=== PATIENT | male | born 1940 | race Caucasian/White ===

== ENCOUNTER → 2016-05-24 | Outpatient (CLI) | payer OTHER ==
[~2016-05-24] MED LIST: AMOX875T PO; ANTICRE6 PO; ASPI325T45 PO; ASPI81TA28 PO; CEPH500C2 PO; CGN1 PO; DXY100 PO; FINA5TAB PO; FLM4 PO; FLV400 PO; FRS/40 PO; GABA-113 PO; GABA600T PO; INSDGIPEN SC; INSU1INJ2 SC; INSU70IN2 SC; INSUINJ14 SC; LACT10CA3 PO; LEVO1TAB34 PO; MAGNESIUM PO; METH1TAB5 PO; METO25TA56 PO; METO50TA16 PO; METO5TAB5 PO; MGNO400 PO; MULT-190 PO; MULT-506 PO; NVLGI/PEN SC; NVLGIPEN SC; NYST-19 TOP; NYSTCRE32 TOP; POTA20TA16 PO; PRLSR20 PO; PRV100 PO; SIMV40TA2 PO; SULF800T23 PO; TRAM-10 PO; TRIM100T20 PO; VENL75TA4 PO; VNTHFA/IN INH
[2016-05-24 13:52] LABS: URINE APPEARANCE CLOUDY (CLEAR); URINE BILIRUBIN NEG (NEG); URINE COLOR YELLOW; URINE NITRITE POS (NEG); URINE PH 8.5 (4.5-7.5); UROBILINOGEN NEG (NEG)
[2016-05-24 14:38] LABS: MANUAL MICROSCOPIC REQUIRED? NO; REVIEW REQ? NO
[2016-05-24 14:39] LABS: SULFASALICYLIC ACID POS (NEG)
== END | disposition home or self-care (01) ==
LOC: EDBD → C.LABSPEC 12:39
DX: N39.0 Urinary tract infection, site not specified (principal)

== ENCOUNTER → 2016-05-31 | Outpatient (CLI) | payer OTHER ==
[~2016-05-31] MED LIST changes: -SULF800T23 PO
[2016-05-31 17:39] LABS: URINE APPEARANCE CLEAR (CLEAR); URINE BILIRUBIN NEG (NEG); URINE COLOR YELLOW; URINE EPITHELIAL CELL AUTO 0-5 /lpf (0-5); URINE NITRITE POS (NEG); URINE SPECIFIC GRAVITY 1.009 (1.000-1.030); UROBILINOGEN NEG (NEG)
[2016-05-31 17:49] LABS: MANUAL MICROSCOPIC REQUIRED? NO; REVIEW REQ? NO
== END | disposition home or self-care (01) ==
LOC: EDBD → C.LAB 15:57
PROVIDERS: ATTEND Nurse Practitioner Adult Health
DX: R30.0 Dysuria (principal)

== ENCOUNTER 2016-06-30 14:01 | Emergency (ER) | payer OTHER ==
[~2016-06-30] VITALS: Ht 177.8 cm; Wt 139.0 kg
[~2016-06-30 14:01] MED LIST changes: -AMOX875T PO; -ASPI81TA28 PO; -CEPH500C2 PO; -CGN1 PO; -DXY100 PO; -FINA5TAB PO; -FLM4 PO; -GABA-113 PO; -INSDGIPEN SC; -INSU1INJ2 SC; -LACT10CA3 PO; -LEVO1TAB34 PO; +METH-1305 PO; -METH1TAB5 PO; -METO25TA56 PO; -MGNO400 PO; -MULT-190 PO; -NVLGI/PEN SC; -NVLGIPEN SC; -NYST-19 TOP; -NYSTCRE32 TOP; -PRV100 PO; -SIMV40TA2 PO; -TRAM-10 PO; +TRIM100T PO; -TRIM100T20 PO
[2016-06-30 14:08] VITALS: Ht 177.8 cm; Wt 139.0 kg
--- NOTE | 2016-06-30 14:29 | EMERGENCY ROOM VISIT NOTE ---
History Report prepared by Tr: Dino Love Under the Supervision of: Dr. Lloyd Piedra M.D. First contact with patient: 14:19 Chief Complaint: CATHETER REPLACEMENT Stated Complaint: CATHETER PLACEMENT History of Present Illness The patient is a 75 year old male who presents to the Emergency Room with complaints of a sudden catheter displacement beginning several hours prior to arrival. He states his Osorio catheter accidentally came out, and his home health nurses could not place it back in. Therefore, he came to the hospital. The patient denies a fever, flank pain, and abdominal pain. Source of History: patient Onset: several hours BUSINESS LINE MANAGER Position: other (global) Quality: other (catheter displacement) Timing: other (sudden) Associated Symptoms: No abdominal pain, No back pain, No fevers Review of Systems See HPI for pertinent positives & negatives. A total of 6 systems reviewed and were otherwise negative. Past Medical & Surgical Medical Problems: (1) Anxiety (2) Benign prostatic hyperplasia (3) Depression (4) Diabetes mellitus type 2 (5) Diabetic neuropathy (6) Diabetic peripheral neuropathy associated with type 2 diabetes mellitus (7) Diastolic heart failure (8) Dyslipidemia (9) Essential hypertension (10) Gastroesophageal reflux disease (11) Loss of sensation (12) Morbid obesity (13) Peripheral venous insufficiency (14) Respiratory failure (15) Sleep apnea (16) UTI (urinary tract infection) Surgical Problems: (1) S/P cataract surgery (2) S/P colonoscopy (3) S/p eyelid surgery (4) S/P foot surgery, left (5) S/P panniculectomy (6) S/P tonsillectomy Family History Diabetes mellitus MOTHER BROTHER GRANDMOTHER FH: CAD (coronary artery disease) FATHER (CABG) FH: CHF (congestive heart failure) MOTHER BROTHER GI disorder Hypertension MOTHER Social History Smoking Status: Former Smoker Alcohol Use: none Drug Use: none Marital Status: Housing Status: lives with family Occupation Status: retired Current/Historical Medications Scheduled Aspirin (Aspirin), 1 TAB PO DAILY Finasteride (Proscar), 5 MG PO QAM Folic Acid (Folic Acid), 400 MCG PO QAM Furosemide (Lasix), 2 TAB PO BID Gabapentin (Neurontin), 600 MG PO TID Insulin Aspart Penfill (Novolog Penfill), 1 DOSE SC WM Insulin Isophan/Regular (Novolin 70/30), 35 UNITS SC QPM Methenamine Hippurate (Methenamine Hippurate), 1 TAB PO QPM Metolazone (Zaroxolyn), 5 MG PO 2XWK Metoprolol Tartrate (Lopressor) (Lopressor), 50 MG PO DAILY Multivitamin (Multivitamin), 1 TAB PO DAILY Omeprazole (Prilosec), 20 MG PO QAM Potassium Ext Rel (Klor-Con), 20 MEQ PO DAILY Simvastatin (Zocor), 40 MG PO HS Tamsulosin HCl (Tamsulosin HCl), 1 CAP PO HS Trimethoprim (Proloprim), 100 MG PO HS Venlafaxine Hcl (Effexor), 75 MG PO QAM [Antibiotic], 1 DOSE PO QAM [Magnesium], 1 TAB PO DAILY Scheduled PRN Albuterol Hfa (Ventolin Hfa), 2 PUFFS INH Q4H PRN for SOB/Wheezing Allergies Coded Allergies: Oxycodone (Verified Adverse Reaction, Unknown, Trouble coming off, 06/04/16 ) Repoted by , NOT ALLERGIC TO THEM Propoxyphene (Verified Adverse Reaction, Unknown, Trouble coming off of Darvocet., 06/04/16) Reported by Physical Exam Vital Signs Date Time Temp Pulse Resp B/P Pulse Ox O2 Delivery O2 Flow Rate FiO2 06/30/16 15:22 36.6 72 20 151/77 99 06/30/16 15:20 36.6 72 20 151/77 99 Room Air 06/30/16 14:08 36.6 72 20 155/78 99 Room Air Physical Exam CONSTITUTIONAL: No distress. HEENT: No icterus, moist mucous membranes NECK: No meningismus, trachea is midline. CARDIOVASCULAR: Regular rate, normal perfusion RESPIRATORY: Unlabored breathing. Clear to auscultation. GASTROINTESTINAL: Non-tender GENITOURINARY: No flank tenderness MUSCULOSKELETAL: Full range of motion NEUROLOGIC: No acute gross focal deficits. PSYCHIATRIC: Normal affect SKIN: Normal for ethnicity. Medical Decision & Procedures ED Course 1418: Past medical records reviewed. The patient was evaluated in room D2B. A complete history and physical examination was performed. 1425: Upon reexamination the patient is doing well. I discussed results and treatment plan with the patient. He verbalizes agreement and understanding. The patient is ready for discharge. Medical Decision 75-year-old with history of indwelling Osorio catheter presents into the emergency room for Osorio change after accidentally come out and home nursing was unable to place another one. She appears well and has no other complaints with unremarkable review of systems. Impression Primary Impression: Complication of catheter Scribe Attestation The scribe's documentation has been prepared under my direction and personally reviewed by me in its entirety. I confirm that the note above accurately reflects all work, treatment, procedures, and medical decision making performed by me. Departure Information Dispostion Home / Self-Care Referrals Syed Valdivia, D.O. (PCP) Forms HOME CARE DOCUMENTATION FORM, IMPORTANT VISIT INFORMATION Patient Instructions My [facility], ED Catheter Care Osorio
[2016-06-30 15:22] VITALS: BP 151/77; PULSE 72; TEMP 36.6; O2SAT 99
[2017-02-02] MEDS ORDERED: BENZ-89 PO (22:16)
[2017-02-09] MEDS ORDERED: FRS/40 PO (09:15)
[2017-02-09] MEDS ORDERED: PRV100 PO (11:54)
[2017-02-19] MEDS ORDERED: LSX40 PO (13:04)
[2017-02-19] MEDS ORDERED: NVLGIPEN SC (13:04)
[2017-02-19] MEDS ORDERED: MODA1TAB5 PO (13:04)
[2017-02-19] MEDS ORDERED: NRN300 PO (13:04)
[2017-04-11] MEDS ORDERED: ASPI81TA28 PO (10:28)
[2017-04-11] MEDS ORDERED: FLM4 PO (12:01)
[2017-04-11] MEDS ORDERED: SIMV40TA2 PO (13:32)
[2017-04-11] MEDS ORDERED: FINA5TAB PO (14:08)
[2017-04-11] MEDS ORDERED: FOLI1TAB7 PO (16:41)
[2017-04-11] MEDS ORDERED: NVLGI/PEN SQ (19:10)
[2017-04-11] MEDS ORDERED: INSDGIPEN SQ (19:10)
[2017-04-11] MEDS ORDERED: ACET-1256 PO (19:20)
[2017-04-11] MEDS ORDERED: CEFD300C2 PO (21:51)
== END 2016-06-30 16:00 | disposition home or self-care (01) ==
LOC: EDBD → C.EDD 14:02
DX: T83.028A Displacement of other urinary catheter, initial encounter (principal); N40.0 Benign prostatic hyperplasia without lower urinary tract symptoms; F32.9 Major depressive disorder, single episode, unspecified; F41.9 Anxiety disorder, unspecified; E11.9 Type 2 diabetes mellitus without complications; E78.5 Hyperlipidemia, unspecified; I10 Essential (primary) hypertension; K21.9 Gastro-esophageal reflux disease without esophagitis; G47.30 Sleep apnea, unspecified; Z79.4 Long term (current) use of insulin; Z79.82 Long term (current) use of aspirin; Z79.899 Other long term (current) drug therapy; Z87.09 Personal history of other diseases of the respiratory system; Z87.440 Personal history of urinary (tract) infections; Z87.891 Personal history of nicotine dependence; Z82.49 Family history of ischemic heart disease and other diseases of the circulatory system; Z83.3 Family history of diabetes mellitus; Z83.79 Family history of other diseases of the digestive system; Y84.6 Urinary catheterization as the cause of abnormal reaction of the patient, or of later complication, without mention of misadventure at the time of the procedure

== ENCOUNTER → 2016-07-23 | Outpatient (CLI) | payer OTHER ==
[~2016-07-23] MED LIST changes: +AMOX875T PO; +ASPI81TA28 PO; +CEPH500C2 PO; +CGN1 PO; +DXY100 PO; +FINA5TAB PO; +FLM4 PO; +FOLI1TAB7 PO; +GABA-113 PO; +INSDGIPEN SC; +INSU1INJ2 SC; +LACT10CA3 PO; +LEVO1TAB34 PO; +LSX40 PO; +MAGN400T6 PO; -METH-1305 PO; +METH1TAB5 PO; +METO25TA56 PO; +MGNO400 PO; +MODA1TAB5 PO; +MULT-190 PO; +NVLGI/PEN SC; +NVLGIPEN SC; +NYST-19 TOP; +NYSTCRE32 TOP; +PRV100 PO; +SIMV40TA2 PO; +TRAM-10 PO; -TRIM100T PO; +TRIM100T20 PO
[2016-07-23 15:18] LABS: URINE APPEARANCE CLOUDY (CLEAR); URINE BILIRUBIN NEG (NEG); URINE COLOR YELLOW; URINE NITRITE NEG (NEG); URINE SPECIFIC GRAVITY 1.008 (1.000-1.030); UROBILINOGEN NEG (NEG)
[2016-07-23 15:31] LABS: REVIEW REQ? YES
[2016-07-23 15:32] LABS: MANUAL MICROSCOPIC REQUIRED? NO
== END | disposition home or self-care (01) ==
LOC: EDBD → C.LABSPEC 13:11
PROVIDERS: ATTEND Nurse Practitioner Adult Health
DX: N39.0 Urinary tract infection, site not specified (principal)

== ENCOUNTER 2016-08-14 09:32 | Inpatient (IN) | payer OTHER ==
[~2016-08-14] VITALS: Ht 177.8 cm; Wt 135.3 kg
[~2016-08-14 09:32] MED LIST changes: -AMOX875T PO; -ASPI81TA28 PO; -CEPH500C2 PO; -CGN1 PO; -DXY100 PO; -FINA5TAB PO; -FLM4 PO; -FOLI1TAB7 PO; -GABA-113 PO; -INSDGIPEN SC; -INSU1INJ2 SC; -LACT10CA3 PO; -LEVO1TAB34 PO; -LSX40 PO; -MAGN400T6 PO; +METH-1305 PO; -METH1TAB5 PO; -METO25TA56 PO; -MGNO400 PO; -MODA1TAB5 PO; -MULT-190 PO; -NVLGI/PEN SC; -NVLGIPEN SC; -NYST-19 TOP; -NYSTCRE32 TOP; -PRV100 PO; -SIMV40TA2 PO; -TRAM-10 PO; +TRIM100T PO; -TRIM100T20 PO
[2016-08-14] MEDS ORDERED: SODIUM CHLORIDE 0.9% 500ML 500 ML IV STA (10:03)
[2016-08-14] MEDS ORDERED: ONDANSETRON INJ 2 MG/ML 2 ML VIAL IV STA (10:03)
[2016-08-14] MEDS ORDERED: METO25TA56 PO (10:22)
[2016-08-14] MEDS ORDERED: GABA-113 PO (10:22)
[2016-08-14] MEDS ORDERED: TRAMADOL HCL 50 MG TAB PO STA (10:27)
[2016-08-14] MEDS ORDERED: TRAM-10 PO (10:32)
[2016-08-14 10:36] LABS: BASO % 0.2 %; BASO ABS # 0.02 K/uL (0-0.2); COMPLETE YES; EOS % 2.7 %; HEMATOCRIT 38.8 % (42-52); IG% 0.1 %; LYMPH % 22.4 %; LYMPH ABS # 2.08 K/uL (1.2-3.4); MEAN CELL VOLUME 75.6 fL (80-100); MEAN CORPUSCULAR HEMOGLOBIN 23.6 pg (25-34); MEAN CORPUSCULAR HGB CONC 31.2 g/dl (32-36); MEAN PLATELET VOLUME 10.6 fL (7.4-10.4); MONO % 7.3 %; NEUT % 67.3 %; PLATELET COUNT 264 K/uL (130-400); RED BLOOD COUNT 5.13 M/uL (4.7-6.1); WHITE BLOOD COUNT 9.27 K/uL (4.8-10.8)
[2016-08-14] MEDS ORDERED: INSDGIPEN SC (10:40)
--- NOTE | 2016-08-14 10:49 | DIAGNOSTIC IMAGING REPORT ---
CHEST 2 VIEWS ROUTINE CLINICAL HISTORY: cough COMPARISON STUDY: 02/21/2016 FINDINGS: The study is rotated. The heart appears enlarged. There is mild central pulmonary vascular congestion. There is no lobar consolidation.[ There are no pleural effusions. IMPRESSION: 1. Technically limited study 2. Cardiomegaly with probable mild central pulmonary vascular congestion 3. No evidence of focal pulmonary consolidation Electronically signed by: Oliverio Kramer M.D. 08/14/2016 10:48 AM Dictated Date/Time: 08/14/2016 10:46 AM
[2016-08-14 10:53] LABS: ALT/SGPT 12 U/L (12-78); AST/SGOT 16 U/L (15-37); BLOOD UREA NITROGEN 23 mg/dl (7-18); BUN/CREATININE RATIO 19.2 (10-20); CALCIUM 8.6 mg/dl (8.5-10.1); CARBON DIOXIDE 33 mmol/L (21-32); CHLORIDE 96 mmol/L (98-107); GLUCOSE 206 mg/dl (70-99); POTASSIUM 3.4 mmol/L (3.5-5.1); SODIUM 139 mmol/L (136-145)
[2016-08-14 11:25] LABS: ALKALINE PHOSPHATASE 104 U/L (45-117)
[2016-08-14] MEDS ORDERED: OPTIRAY 320 IV PRN (11:30)
--- NOTE | 2016-08-14 12:47 | DIAGNOSTIC IMAGING REPORT ---
CHEST CTA for PULMONARY ARTERIES CT DOSE: 2941.93 mGy.cm HISTORY: Short of breath. Cough. TECHNIQUE: Multiaxial CT images of the chest were performed following the intravenous administration of contrast to evaluate the pulmonary arteries. Maximal intensity projection images were also obtained. COMPARISON STUDY: Chest CTA 07/08/2015. FINDINGS: Advanced degenerative changes within the thoracic spine. Cholelithiasis. No pleural or pericardial effusions. No mediastinal or hilar lymphadenopathy. The heart remains mildly enlarged. Stable slightly prominent axillary lymph nodes. No evidence for an aortic dissection. No definite filling defects within the pulmonary arteries to suggest pulmonary embolus. Of note, the left lower lobe segmental and subsegmental pulmonary arteries are not well evaluated due to respiratory motion. Old, healed right rib fracture. No pneumothorax. Stable 2 mm subpleural nodule within the right middle lobe on image 140. This is likely benign. Patchy densities at bases left lower lobe favor subsegmental atelectasis. IMPRESSION: 1. No evidence for pulmonary embolus. 2. Small patchy density within the left lung base favors atelectasis. Otherwise, no focal lung consolidations to suggest pneumonia. 3. Additional findings as described above. Electronically signed by: Ed Turner M.D. 08/14/2016 12:46 PM Dictated Date/Time: 08/14/2016 12:34 PM
--- NOTE | 2016-08-14 13:12 | DIAGNOSTIC IMAGING REPORT ---
CT OF THE ABDOMEN AND PELVIS WITH CONTRAST CLINICAL HISTORY: Abdominal pain with nausea. COMPARISON STUDY: CT of the abdomen and pelvis July 08, 2015. TECHNIQUE: Following IV administration of 119 mL of Optiray-320, axial images of the abdomen and pelvis were obtained from the lung bases to the proximal femurs. Images were reviewed in the axial, sagittal, and coronal planes. IV contrast was administered without complication. FINDINGS: The chest CT will be reported separately. No pneumatosis, free air or portal venous gas is present. There is a gallstone within the gallbladder. There is slight nodularity of the liver surface. The size of the spleen is normal. There is no ascites. The adrenal glands and pancreas are unremarkable. A 2.2 cm right renal cyst is noted. Note is made of a 1.6 cm lesion projecting off the lower pole of the left kidney. This measures just above water attenuation although is suboptimally assessed due to artifact on this exam. There is no hydronephrosis. There is no evidence for a bowel obstruction. Gas within the bladder is from catheterization. Osorio balloon is likely within the prostatic urethra. IMPRESSION: 1. No acute process within the abdomen or pelvis. 2. Osorio balloon is likely within the prostatic urethra and could be advanced. 3. 1.6 cm lesion arising from the lower pole of the left kidney. This is likely benign but is difficult to assess on this exam due to artifact. A follow-up renal protocol CT in one year is recommended. 4. Cholelithiasis. Electronically signed by: Vlad Everett M.D. 08/14/2016 1:11 PM Dictated Date/Time: 08/14/2016 12:58 PM
[2016-08-14] MEDS ORDERED: LEVAQUIN 500MG / 100ML D5W IV ONE (13:30)
[2016-08-14 14:02] LABS: VEN BLD GAS O2 SATURATION 78.4 %; VEN BLOOD GAS BASE EXCESS 8.4 mmol/L
[2016-08-14] MEDS ORDERED: MULT-190 PO (15:11)
[2016-08-14] MEDS ORDERED: NYST-19 TOP (15:13)
[2016-08-14] MEDS ORDERED: DEXTROSE 50% 50 ML SYR IV PRN (15:15)
[2016-08-14] MEDS ORDERED: GLUCOSE 10 TABS/TUBE PO PRN (15:15)
[2016-08-14] MEDS ORDERED: ACETAMINOPHEN 325 MG TAB PO PRN (15:15)
[2016-08-14] MEDS ORDERED: GLUCAGON FOR INJ 1 MG VIAL SQ PRN (15:15)
[2016-08-14] MEDS ORDERED: POLYETHYLENE (MIRALAX) 17 GM PACK PO PRN (15:15)
[2016-08-14] MEDS ORDERED: TRAMADOL HCL 50 MG TAB PO PRN (15:15)
[2016-08-14] MEDS ORDERED: GLUCOSE 40% GEL 15 GM TUBE PO PRN (15:15)
[2016-08-14] MEDS ORDERED: ONDANSETRON INJ 2 MG/ML 2 ML VIAL IV PRN (15:15)
[2016-08-14 15:42] VITALS: Ht 177.8 cm; Wt 135.3 kg
--- NOTE | 2016-08-14 17:02 | Progress Note ---
Medicine Progress Note Date & Time of Visit: Aug 14, 2016 at 16:43. Subjective ATTENDING ADDENDUM FOR H&P Objective Last 8 Hrs Date Time Temp Pulse Resp B/P Pulse Ox O2 Delivery O2 Flow Rate FiO2 08/14/16 16:28 75 08/14/16 15:42 Nasal Cannula 2.0 08/14/16 15:02 98 Nasal Cannula 2.0 08/14/16 14:59 75 18 137/72 84 Room Air 08/14/16 14:37 74 26 08/14/16 14:31 168/71 08/14/16 14:07 71 15 98 08/14/16 13:37 73 21 08/14/16 13:30 151/68 08/14/16 13:07 76 15 08/14/16 13:01 149/73 08/14/16 12:55 135/63 08/14/16 12:24 75 08/14/16 12:13 72 16 147/66 97 Nasal Cannula 3.0 08/14/16 12:13 147/66 08/14/16 11:07 75 21 08/14/16 11:02 77 17 99 08/14/16 11:01 97/71 08/14/16 10:46 139/84 08/14/16 10:23 84 Room Air 08/14/16 10:23 92 Nasal Cannula 3.0 08/14/16 10:18 136/62 08/14/16 10:02 75 08/14/16 10:01 190/109 08/14/16 09:44 37.1 76 18 162/74 95 Room Air 08/14/16 09:44 95 Room Air 08/14/16 09:39 74 08/14/16 09:36 162/74 Physical Exam: GEN: morbidly obese, in no acute distress, alert and appropriate but appears slow to respond and concentration is low. HEENT: NC/AT, normal sclerae, pharynx non-acute, MMM CARDIO: reg rate, S1/2 heard without m/g/r LUNGS: CTA bilaterally, no crackles, rales or wheezes, good diaphragmatic excursion ABD: soft, non-tender, non-distended, no rebound or guarding, large pannus and multiple skin folds--nytatin powder in between folds-skin intact except where stated below EXTREMITY:warm and well-perfused, no edema, erythroderma present on lower legs bilaterally NEURO: no gross focal deficits MUSC: moves around bed with ease, no gross focal deficits, gait not assessed SKIN: warm and dry, STage II ulcer on L buttock posteriorly. chafing with erythema on inner medial R thigh near testicles Laboratory Results: 08/14/16 10:18 Red Blood Count 5.13, Mean Corpuscular Volume 75.6, Mean Corpuscular Hemoglobin 23.6, Mean Corpuscular Hemoglobin Concent 31.2, Mean Platelet Volume 10.6, Neutrophils (%) (Auto) 67.3, Lymphocytes (%) (Auto) 22.4, Monocytes (%) (Auto) 7.3, Eosinophils (%) (Auto) 2.7, Basophils (%) (Auto) 0.2, Neutrophils # (Auto) 6.23, Lymphocytes # (Auto) 2.08, Monocytes # (Auto) 0.68, Eosinophils # (Auto) 0.25, Basophils # (Auto) 0.02 08/14/16 10:18 Test 08/14/16 10:17 08/14/16 10:18 08/14/16 13:23 08/14/16 13:50 Influenza Type A Antigen Neg for Influ A (NEG) Influenza Type B Antigen Neg for Influ B (NEG) White Blood Count 9.27 K/uL (4.8-10.8) Red Blood Count 5.13 M/uL (4.7-6.1) Hemoglobin 12.1 g/dL (14.0-18.0) Hematocrit 38.8 % (42-52) Mean Corpuscular Volume 75.6 fL (80-100) Mean Corpuscular Hemoglobin 23.6 pg (25-34) Mean Corpuscular Hemoglobin Concent 31.2 g/dl (32-36) Platelet Count 264 K/uL (130-400) Mean Platelet Volume 10.6 fL (7.4-10.4) Neutrophils (%) (Auto) 67.3 % Lymphocytes (%) (Auto) 22.4 % Monocytes (%) (Auto) 7.3 % Eosinophils (%) (Auto) 2.7 % Basophils (%) (Auto) 0.2 % Neutrophils # (Auto) 6.23 K/uL (1.4-6.5) Lymphocytes # (Auto) 2.08 K/uL (1.2-3.4) Monocytes # (Auto) 0.68 K/uL (0.11-0.59) Eosinophils # (Auto) 0.25 K/uL (0-0.5) Basophils # (Auto) 0.02 K/uL (0-0.2) RDW Standard Deviation 47.3 fL (36.4-46.3) RDW Coefficient of Variation 17.1 % (11.5-14.5) Immature Granulocyte % (Auto) 0.1 % Immature Granulocyte # (Auto) 0.01 K/uL (0.00-0.02) D-Dimer 710 ug/L FEU (0-500) Anion Gap 10.0 mmol/L (3-11) Est Creatinine Clear Calc Drug Dose 74.3 ml/min Estimated GFR () 68.1 Estimated GFR (Non- 58.8 BUN/Creatinine Ratio 19.2 (10-20) Calcium Level 8.6 mg/dl (8.5-10.1) Magnesium Level 2.0 mg/dl (1.8-2.4) Total Bilirubin 0.4 mg/dl (0.2-1) Direct Bilirubin < 0.1 mg/dl (0-0.2) Aspartate Amino Transf (AST/SGOT) 16 U/L (15-37) Alanine Aminotransferase (ALT/SGPT) 12 U/L (12-78) Alkaline Phosphatase 104 U/L (45-117) Troponin I < 0.015 ng/ml (0-0.045) Pro-B-Type Natriuretic Peptide 773 pg/ml (0-900) Total Protein 6.9 gm/dl (6.4-8.2) Albumin 2.9 gm/dl (3.4-5.0) Lipase 54 U/L (73-393) Chemistry Specimen Hemolysis Bedside Glucose 173 mg/dl (70-99) Venous Blood pH 7.47 (7.36-7.41) Venous Blood Partial Pressure CO2 47 mmHg (38.0-50.0) Venous Blood Partial Pressure O2 43 mmHg Venous Blood HCO3 33 mmol/L Venous Blood Oxygen Saturation 78.4 % Venous Blood Base Excess 8.4 mmol/L Last 24 Hours Test 08/14/16 09:39 08/14/16 10:17 08/14/16 10:18 08/14/16 13:23 Bedside Glucose 209 mg/dl 173 mg/dl Influenza Type A Antigen Neg for Influ A Influenza Type B Antigen Neg for Influ B White Blood Count 9.27 K/uL Red Blood Count 5.13 M/uL Hemoglobin 12.1 g/dL Hematocrit 38.8 % Mean Corpuscular Volume 75.6 fL Mean Corpuscular Hemoglobin 23.6 pg Mean Corpuscular Hemoglobin Concent 31.2 g/dl Platelet Count 264 K/uL Mean Platelet Volume 10.6 fL Neutrophils (%) (Auto) 67.3 % Lymphocytes (%) (Auto) 22.4 % Monocytes (%) (Auto) 7.3 % Eosinophils (%) (Auto) 2.7 % Basophils (%) (Auto) 0.2 % Neutrophils # (Auto) 6.23 K/uL Lymphocytes # (Auto) 2.08 K/uL Monocytes # (Auto) 0.68 K/uL Eosinophils # (Auto) 0.25 K/uL Basophils # (Auto) 0.02 K/uL RDW Standard Deviation 47.3 fL RDW Coefficient of Variation 17.1 % Immature Granulocyte % (Auto) 0.1 % Immature Granulocyte # (Auto) 0.01 K/uL D-Dimer 710 ug/L FEU Sodium Level 139 mmol/L Potassium Level 3.4 mmol/L Chloride Level 96 mmol/L Carbon Dioxide Level 33 mmol/L Anion Gap 10.0 mmol/L Blood Urea Nitrogen 23 mg/dl Creatinine 1.20 mg/dl Est Creatinine Clear Calc Drug Dose 74.3 ml/min Estimated GFR () 68.1 Estimated GFR (Non- 58.8 BUN/Creatinine Ratio 19.2 Random Glucose 206 mg/dl Calcium Level 8.6 mg/dl Magnesium Level 2.0 mg/dl Total Bilirubin 0.4 mg/dl Direct Bilirubin < 0.1 mg/dl Aspartate Amino Transf (AST/SGOT) 16 U/L Alanine Aminotransferase (ALT/SGPT) 12 U/L Alkaline Phosphatase 104 U/L Troponin I < 0.015 ng/ml Pro-B-Type Natriuretic Peptide 773 pg/ml Total Protein 6.9 gm/dl Albumin 2.9 gm/dl Lipase 54 U/L Chemistry Specimen Hemolysis Test 08/14/16 13:50 Venous Blood pH 7.47 Venous Blood Partial Pressure CO2 47 mmHg Venous Blood Partial Pressure O2 43 mmHg Venous Blood HCO3 33 mmol/L Venous Blood Oxygen Saturation 78.4 % Venous Blood Base Excess 8.4 mmol/L Assessment & Plan ATTENDING ADDENDUM Record reviewed. Patient interviewed and examined. Care coordinated with Viji Bill PA-C. Please refer to her documentation for patient's history. 76 yo obese diabetic male with a long history of noncompliance who presents with nausea and generalized malaise. He was hypoxic in the ER, requiring 2L via NC. At home, he is supposed to wear nocturnal oxygen and CPAP and reports being non-compliant with both. He reports having poor sleep quality in general. He states that he came in because he generally felt poor but declines significant shortness of breath and is not tachypneic during the interview. He has a h/o obesity hypoventilation syndrome, GILLES and morbid obesity and was recently seen by the sleep clinic who documented his non-compliance and need for both the nocturnal oxygen and CPAP. He does report a non-productive cough for the past couple of days but denies fevers, chills, or other infectious symptoms. He denies any recent sick contacts, and labwork and imaging studies are not consistent with pneumonia. Bronchitis is a possibility, and I would not give antibiotics for this at this time. There was no coughing or signs of acute illness on exam today. His hypoxia may be related to his obese body habitus along with some atelectasis seen on CT PE. CXR and CT were negative for acute pneumonia, PE and flu Ag was negative with PCR pending. He does not appear to be in heart failure clinically (euvolemic, no JVD, lungs clear, no edema, no tachypnea, etc) and EKG is not ischemic with negative cardiac enzymes and no chest pain or shortness of breath reported. This patient has been in and out of [facility] for rehab, and will need an assessment of his ability to accomplish ADLs safely as this has recently been an issue for him. PT.OT was consulted, as well as Case Management. This patient began to discuss his ' s bad temper and how it upsets him at home, however, he said he felt safe at home and would like to return there in lieu of rehab. He denied abuse to me today. When he was told he would be admitted to the hospital, he became upset and said he wanted to go home. He was informed that he would need to leave AMA and he verbalized understanding. I spoke with his by phone who convinced him to stay. She also said that his malaise today may have been from low blood sugar at home this morning. I also spoke with the patient regarding the importance of CPAP compliance, and he verbalized understanding that there was a mortality benefit to treatment compliance. He was admitted to telemetry to evaluate his hypoxia more closely and allow time for PT/OT evaluations to take place. If persistent hypoxia and need for continuous oxygen, may consider pulm consult for bronch to assess for mucous plugging or other cause. As patient was leaving consult template note was placed in the system, however, this is the H&P. Pilar Bernard DO Hospitalist Current Inpatient Medications: Current Inpatient Medications Medications (Trade) Dose Ordered Sig/Bj Route Start Time Stop Time Status Last Admin Dose Admin Ioversol (Optiray 320) 125 ml UD PRN IV 08/14/16 11:30 08/18/16 11:29 Acetaminophen (Tylenol Tab) 650 mg Q4H PRN PO 08/14/16 15:15 09/13/16 15:14 UNV Ondansetron HCl (Zofran Inj) 4 mg Q6H PRN IV 08/14/16 15:15 09/13/16 15:14 UNV Polyethylene (Miralax Powder Packet) 17 gm DAILY PRN PO 08/14/16 15:15 09/13/16 15:14 UNV Insulin Glargine (Lantus Solostar Pen) 13 unit Q12 SC 08/14/16 21:00 09/13/16 20:59 UNV Insulin Aspart (novoLOG ASPART) SLIDING SCALE If C... ACHS SC 08/14/16 16:00 09/13/16 15:59 UNV Glucose (Glucose 40% Gel) 15-30 GRAMS 15 GRAMS... UD PRN PO 08/14/16 15:15 09/13/16 15:14 UNV Glucose (Glucose Chew Tab) 4-8 Tablets 4 Tabl... UD PRN PO 08/14/16 15:15 09/13/16 15:14 UNV Dextrose (Dextrose 50% 50ML Syringe) 25-50ML OF 50% DW IV FOR... UD PRN IV 08/14/16 15:15 09/13/16 15:14 UNV Glucagon (Glucagon Inj) 1 mg UD PRN SQ 08/14/16 15:15 09/13/16 15:14 UNV Miscellaneous Information (Consult Glycemic Management Pharmacy) 1 ea ONE STAT N/A 08/14/16 15:03 08/14/16 15:04 UNV Enoxaparin Sodium (Lovenox Inj) 40 mg QAM SQ 08/15/16 09:00 09/14/16 08:59 UNV Aspirin (Ecotrin Tab) 81 mg DAILY PO 08/15/16 09:00 09/14/16 08:59 UNV Finasteride (Proscar Tab) 5 mg QAM PO 08/15/16 09:00 09/14/16 08:59 UNV Folic Acid (Folvite Tab) 400 mcg QAM PO 08/15/16 09:00 09/14/16 08:59 UNV Furosemide (Lasix Tab) 80 mg BID PO 08/14/16 21:00 09/13/16 20:59 UNV Gabapentin (Neurontin Cap) 600 mg QID PO 08/14/16 17:00 09/13/16 16:59 UNV Metolazone (Zaroxolyn Tab) 5 mg TuTh@0900 PO 08/16/16 09:00 09/15/16 08:59 UNV Nystatin (Mycostatin Powder) 1 appln TID EXT 08/14/16 21:00 09/13/16 20:59 UNV Multivitamins/ Minerals (Multivitamin W/ Minerals Tab) 1 tab DAILY PO 08/15/16 09:00 09/14/16 08:59 UNV Potassium Chloride (Klor-Con Tab) 40 meq BID PO 08/14/16 21:00 09/13/16 20:59 UNV Simvastatin (Zocor Tab) 40 mg HS PO 08/14/16 21:00 09/13/16 20:59 UNV Tamsulosin HCl (Flomax Cap) 0.4 mg HS PO 08/14/16 21:00 09/13/16 20:59 UNV Tramadol HCl (Ultram Tab) 50 mg Q12H PRN PO 08/14/16 15:15 09/13/16 15:14 UNV Venlafaxine HCl 75 mg 75 mg BID PO 08/14/16 21:00 09/13/16 20:59 UNV Pantoprazole Sodium/Syringe (Protonix Inj/ Syringe) 10 ml @ 5 mls/min DAILY@11 IV 08/15/16 11:00 09/14/16 10:59 UNV
[2016-08-14 17:04] VITALS: O2SAT 97
[2016-08-14] MEDS ORDERED: PHARMACY GLYCEMIC MGMT CONSULT PRN (17:07)
[2016-08-14 17:37] VITALS: BP 147/80; PULSE 75; TEMP 36.5; O2SAT 98
--- NOTE | 2016-08-14 17:45 | EMERGENCY ROOM VISIT NOTE ---
History Report prepared by Tr: Mike Coats Under the Supervision of: Dr. Gama Sebastian D.O. First contact with patient: 09:41 Chief Complaint: COUGH Stated Complaint: COUGH/NAUSEA History of Present Illness The patient is a 76 year old male who presents to the Emergency Room with complaints of a persistent cough that started 3 or 4 days ago. He says that the cough is dry and non-productive. The coughing is making him feel nauseous, and he has a bit of congestion. He has been short of breath as well. The patient denies any abdominal pain, but says that his stomach feels full. The patient says that nobody around him has been sick recently. He is diabetic, and he notes that his blood sugar was low last night and this morning. He says that he has been eating fine lately. The patient did not take his morning insulin due to the low blood sugars. He had a catheter put in while he was in the hospital around 6 months ago. The patient denies any fevers, vomiting, new muscle aches, runny nose, sore throat, chest pain, or urinary symptoms. He says that he does not take any blood thinners. He still has his gallbladder and appendix. Source of History: patient Onset: 3 or 4 days ago Position: other (global - cough) Quality: other (dry) Timing: other (persistent) Associated Symptoms: + SOB, + nausea, No abdominal pain, No chest pain, No fevers, No sorethroat, No urinary symptoms, No vomiting Note: Associated symptoms: Congestion. Stomach feels full. Denies new muscle aches, runny nose. Review of Systems See HPI for pertinent positives & negatives. A total of 10 systems reviewed and were otherwise negative. Past Medical & Surgical Medical Problems: (1) Anxiety (2) Asthma, cough variant (3) Benign prostatic hyperplasia (4) Depression (5) Diabetes mellitus type 2 (6) Diabetic neuropathy (7) Diabetic peripheral neuropathy associated with type 2 diabetes mellitus (8) Diastolic heart failure (9) Dyslipidemia (10) Essential hypertension (11) Gastroesophageal reflux disease (12) Hypoxia (13) Legal blindness (14) Loss of sensation (15) Morbid obesity (16) Nocturnal hypoxemia (17) Peripheral venous insufficiency (18) Respiratory failure (19) Sleep apnea (20) UTI (urinary tract infection) Surgical Problems: (1) S/P cataract surgery (2) S/P colonoscopy (3) S/p eyelid surgery (4) S/P foot surgery, left (5) S/P panniculectomy (6) S/P tonsillectomy Family History Diabetes mellitus MOTHER BROTHER GRANDMOTHER FH: CAD (coronary artery disease) FATHER (CABG) FH: CHF (congestive heart failure) MOTHER BROTHER GI disorder Hypertension MOTHER Social History Smoking Status: Unknown if Ever Smoked Alcohol Use: none Drug Use: none Marital Status: Housing Status: lives with family Occupation Status: retired Current/Historical Medications Scheduled Aspirin (Aspirin Ec), 81 MG PO DAILY Finasteride (Proscar), 5 MG PO QAM Folic Acid (Folic Acid), 400 MCG PO QAM Furosemide (Lasix), 2 TAB PO BID Gabapentin (Neurontin), 600 MG PO QID Insulin Aspart Penfill (Novolog Penfill), 1 DOSE SC WM Insulin Glargine (Lantus Solostar), 35 SC QPM Metolazone (Zaroxolyn), 5 MG PO 2XWK Metoprolol Tartrate (Lopressor) (Lopressor), 12.5 MG PO BID Multivitamin (Multivitamin), 1 TAB PO DAILY Nystatin (Topical) (Nyata), 1 APPL TOP TID Ocuvite Preservision (Ocuvite Preservision), 1 TAB PO DAILY Omeprazole (Prilosec), 20 MG PO QAM Potassium Ext Rel (Klor-Con), 40 MEQ PO BID Simvastatin (Zocor), 40 MG PO HS Tamsulosin HCl (Tamsulosin HCl), 1 CAP PO HS Venlafaxine Hcl (Effexor), 75 MG PO BID Scheduled PRN Tramadol (Ultram), 50 MG PO Q12H PRN for Pain Allergies Coded Allergies: Oxycodone (Verified Adverse Reaction, Unknown, Trouble coming off, 08/14/16) Repoted by , NOT ALLERGIC TO THEM Propoxyphene (Verified Adverse Reaction, Unknown, Trouble coming off of Darvocet., 08/14/16) Reported by Physical Exam Vital Signs Date Time Temp Pulse Resp B/P Pulse Ox O2 Delivery O2 Flow Rate FiO2 08/14/16 17:37 36.5 75 18 147/80 98 Nasal Cannula 2.0 08/14/16 17:04 77 18 154/77 97 Nasal Cannula 2.0 08/14/16 16:28 75 08/14/16 15:42 Nasal Cannula 2.0 08/14/16 15:02 98 Nasal Cannula 2.0 08/14/16 14:59 75 18 137/72 84 Room Air 08/14/16 14:37 74 26 08/14/16 14:31 168/71 08/14/16 14:07 71 15 98 08/14/16 13:37 73 21 08/14/16 13:30 151/68 08/14/16 13:07 76 15 08/14/16 13:01 149/73 08/14/16 12:55 135/63 08/14/16 12:24 75 08/14/16 12:13 72 16 147/66 97 Nasal Cannula 3.0 08/14/16 12:13 147/66 08/14/16 11:07 75 21 08/14/16 11:02 77 17 99 08/14/16 11:01 97/71 08/14/16 10:46 139/84 08/14/16 10:23 84 Room Air 08/14/16 10:23 92 Nasal Cannula 3.0 08/14/16 10:18 136/62 08/14/16 10:02 75 08/14/16 10:01 190/109 08/14/16 09:44 37.1 76 18 162/74 95 Room Air 08/14/16 09:44 95 Room Air 08/14/16 09:39 74 08/14/16 09:36 162/74 Physical Exam GENERAL: morbidly obese, chronically ill-appearing, sitting up in bed, disheveled EYE EXAM: normal conjunctiva OROPHARYNX: no exudate, no erythema, lips, buccal mucosa, and tongue normal and mucous membranes are moist NECK: supple, no nuchal rigidity, no adenopathy, non-tender LUNGS: Clear to auscultation. Normal chest wall mechanics HEART: distant, no murmurs, S1 normal and S2 normal ABDOMEN: abdomen soft, non-tender, normo-active bowel sounds, no masses, no rebound or guarding. BACK: Back is symmetrical on inspection and there is no deformity, no midline tenderness, no CVA tenderness. SKIN: no rashes and no bruising UPPER EXTREMITIES: upper extremities are grossly normal. LOWER EXTREMITIES: No pitting edema. Calves equal bilaterally. NEURO EXAM: Normal sensorium, cranial nerves II-XII grossly intact, normal speech, no gross weakness of arms, no gross weakness of legs. Gross sensation intact. Medical Decision & Procedures ER Provider Diagnostic Interpretation: Xray results per the radiologist and my interpretation. Other results have been interpreted by the radiologist and reviewed by me. CHEST 2 VIEWS ROUTINE CLINICAL HISTORY: cough COMPARISON STUDY: 02/21/2016 FINDINGS: The study is rotated. The heart appears enlarged. There is mild central pulmonary vascular congestion. There is no lobar consolidation.[ There are no pleural effusions. IMPRESSION: 1. Technically limited study 2. Cardiomegaly with probable mild central pulmonary vascular congestion 3. No evidence of focal pulmonary consolidation Electronically signed by: Oliverio Kramer M.D. 08/14/2016 10:48 AM Dictated Date/Time: 08/14/2016 10:46 AM CHEST CTA for PULMONARY ARTERIES CT DOSE: 2941.93 mGy.cm HISTORY: Short of breath. Cough. TECHNIQUE: Multiaxial CT images of the chest were performed following the intravenous administration of contrast to evaluate the pulmonary arteries. Maximal intensity projection images were also obtained. COMPARISON STUDY: Chest CTA 07/08/2015. FINDINGS: Advanced degenerative changes within the thoracic spine. Cholelithiasis. No pleural or pericardial effusions. No mediastinal or hilar lymphadenopathy. The heart remains mildly enlarged. Stable slightly prominent axillary lymph nodes. No evidence for an aortic dissection. No definite filling defects within the pulmonary arteries to suggest pulmonary embolus. Of note, the left lower lobe segmental and subsegmental pulmonary arteries are not well evaluated due to respiratory motion. Old, healed right rib fracture. No pneumothorax. Stable 2 mm subpleural nodule within the right middle lobe on image 140. This is likely benign. Patchy densities at bases left lower lobe favor subsegmental atelectasis. IMPRESSION: 1. No evidence for pulmonary embolus. 2. Small patchy density within the left lung base favors atelectasis. Otherwise, no focal lung consolidations to suggest pneumonia. 3. Additional findings as described above. Electronically signed by: Ed Turner M.D. 08/14/2016 12:46 PM Dictated Date/Time: 08/14/2016 12:[address] OF THE ABDOMEN AND PELVIS WITH CONTRAST CLINICAL HISTORY: Abdominal pain with nausea. COMPARISON STUDY: CT of the abdomen and pelvis July 08, 2015. TECHNIQUE: Following IV administration of 119 mL of Optiray-320, axial images of the abdomen and pelvis were obtained from the lung bases to the proximal femurs. Images were reviewed in the axial, sagittal, and coronal planes. IV contrast was administered without complication. FINDINGS: The chest CT will be reported separately. No pneumatosis, free air or portal venous gas is present. There is a gallstone within the gallbladder. There is slight nodularity of the liver surface. The size of the spleen is normal. There is no ascites. The adrenal glands and pancreas are unremarkable. A 2.2 cm right renal cyst is noted. Note is made of a 1.6 cm lesion projecting off the lower pole of the left kidney. This measures just above water attenuation although is suboptimally assessed due to artifact on this exam. There is no hydronephrosis. There is no evidence for a bowel obstruction. Gas within the bladder is from catheterization. Osorio balloon is likely within the prostatic urethra. IMPRESSION: 1. No acute process within the abdomen or pelvis. 2. Osorio balloon is likely within the prostatic urethra and could be advanced. 3. 1.6 cm lesion arising from the lower pole of the left kidney. This is likely benign but is difficult to assess on this exam due to artifact. A follow-up renal protocol CT in one year is recommended. 4. Cholelithiasis. Electronically signed by: Vlad Everett M.D. 08/14/2016 1:11 PM Dictated Date/Time: 08/14/2016 12:58 PM Laboratory Results 08/14/16 10:18 Red Blood Count 5.13, Mean Corpuscular Volume 75.6, Mean Corpuscular Hemoglobin 23.6, Mean Corpuscular Hemoglobin Concent 31.2, Mean Platelet Volume 10.6, Neutrophils (%) (Auto) 67.3, Lymphocytes (%) (Auto) 22.4, Monocytes (%) (Auto) 7.3, Eosinophils (%) (Auto) 2.7, Basophils (%) (Auto) 0.2, Neutrophils # (Auto) 6.23, Lymphocytes # (Auto) 2.08, Monocytes # (Auto) 0.68, Eosinophils # (Auto) 0.25, Basophils # (Auto) 0.02 08/14/16 10:18 Test 08/14/16 10:17 08/14/16 10:18 08/14/16 10:22 08/14/16 13:23 Influenza Type A Antigen Neg for Influ A (NEG) Influenza Type B Antigen Neg for Influ B (NEG) White Blood Count 9.27 K/uL (4.8-10.8) Red Blood Count 5.13 M/uL (4.7-6.1) Hemoglobin 12.1 g/dL (14.0-18.0) Hematocrit 38.8 % (42-52) Mean Corpuscular Volume 75.6 fL (80-100) Mean Corpuscular Hemoglobin 23.6 pg (25-34) Mean Corpuscular Hemoglobin Concent 31.2 g/dl (32-36) Platelet Count 264 K/uL (130-400) Mean Platelet Volume 10.6 fL (7.4-10.4) Neutrophils (%) (Auto) 67.3 % Lymphocytes (%) (Auto) 22.4 % Monocytes (%) (Auto) 7.3 % Eosinophils (%) (Auto) 2.7 % Basophils (%) (Auto) 0.2 % Neutrophils # (Auto) 6.23 K/uL (1.4-6.5) Lymphocytes # (Auto) 2.08 K/uL (1.2-3.4) Monocytes # (Auto) 0.68 K/uL (0.11-0.59) Eosinophils # (Auto) 0.25 K/uL (0-0.5) Basophils # (Auto) 0.02 K/uL (0-0.2) RDW Standard Deviation 47.3 fL (36.4-46.3) RDW Coefficient of Variation 17.1 % (11.5-14.5) Immature Granulocyte % (Auto) 0.1 % Immature Granulocyte # (Auto) 0.01 K/uL (0.00-0.02) D-Dimer 710 ug/L FEU (0-500) Anion Gap 10.0 mmol/L (3-11) Est Creatinine Clear Calc Drug Dose 74.3 ml/min Estimated GFR () 68.1 Estimated GFR (Non- 58.8 BUN/Creatinine Ratio 19.2 (10-20) Calcium Level 8.6 mg/dl (8.5-10.1) Magnesium Level 2.0 mg/dl (1.8-2.4) Total Bilirubin 0.4 mg/dl (0.2-1) Direct Bilirubin < 0.1 mg/dl (0-0.2) Aspartate Amino Transf (AST/SGOT) 16 U/L (15-37) Alanine Aminotransferase (ALT/SGPT) 12 U/L (12-78) Alkaline Phosphatase 104 U/L (45-117) Troponin I < 0.015 ng/ml (0-0.045) Pro-B-Type Natriuretic Peptide 773 pg/ml (0-900) Total Protein 6.9 gm/dl (6.4-8.2) Albumin 2.9 gm/dl (3.4-5.0) Lipase 54 U/L (73-393) Chemistry Specimen Hemolysis Bedside Glucose 173 mg/dl (70-99) Test 08/14/16 13:50 Venous Blood pH 7.47 (7.36-7.41) Venous Blood Partial Pressure CO2 47 mmHg (38.0-50.0) Venous Blood Partial Pressure O2 43 mmHg Venous Blood HCO3 33 mmol/L Venous Blood Oxygen Saturation 78.4 % Venous Blood Base Excess 8.4 mmol/L Laboratory results per my review. Medications Administered Medications (Trade) Dose Ordered Sig/Bj Route Start Time Stop Time Status Last Admin Dose Admin Sodium Chloride (Nss 500ml) 500 ml @ 999 mls/hr Q31M STAT IV 08/14/16 10:03 08/14/16 10:33 DC 08/14/16 10:18 999 MLS/HR Ondansetron HCl (Zofran Inj) 4 mg NOW STAT IV 08/14/16 10:03 08/14/16 10:05 DC 08/14/16 10:19 4 MG Tramadol HCl (Ultram Tab) 50 mg NOW STAT PO 08/14/16 10:27 08/14/16 10:29 DC 08/14/16 10:52 50 MG Levofloxacin (Levaquin / D5W) 500 mg NOW ONCE IV 08/14/16 13:30 08/14/16 13:31 DC 08/14/16 13:40 500 MG ECG Indication: nausea Rate (beats per minute): 75 Rhythm: normal sinus Findings: no ectopy, other (normal axis) ED Course ED COURSE: Vital signs were reviewed and showed normal vitals. The patients medical record was reviewed The above diagnostic studies were performed and reviewed. ED treatments and interventions as stated above. 0953: The patient was evaluated in room A2. A complete history and physical examination was performed. 1003: Ordered Zofran Inj 4 mg IV, NSS 500 ml @ 999 mls/hr IV. 1027: Ordered Ultram Tab 50 mg PO. 1123: I reevaluated and updated the patient. 1323: Upon reevaluation, the patient is hypoxic.I discussed my findings with the patient and he understands and agrees with the treatment plan. Based on the patients age, coexisting illnesses, exam and lab findings the decision to treat as an inpatient was made. The patient remained stable while under my care. The patient will be evaluated for further management. 1328: I reviewed the patient's case with Danya Johnson. She will evaluate the patient for further management. 1330: Ordered Levaquin / D5W 500 mg IV. 1450: I reevaluated the patient and he is agitated because he is uncomfortable in bed. He is agreeable to staying in a chair. Medical Decision Differential diagnoses includes but is not limited to pneumonia, bronchitis, COPD/Asthma exacerbation, pneumothorax, pulmonary embolism, congestive heart failure, acute coronary syndrome Patient is a 76-year-old male who presents the ER for a cough associated with nausea. Vitals show hypoxia. Labs show no significant leukocytosis or anemia. EMP along with LFTs and troponin were unremarkable. On exam he has diffuse pitting edema suggesting a component of CHF. Patient remained persistently hypoxic and was given nasal cannula. D-dimer was elevated. CT of the abdomen and pelvis along with CT PE was negative. ABG shows a pH is 7.47. Influenza A and B were negative. Patient was very agitated requested to leave but eventually was agreeable as well as he could sit in a chair. He was given antibiotic so, Zofran and Ultram. He did feel slightly better in regards to his nausea. With his persistent hypoxia I do believe this is hypoventilation secondary to obesity. Patient was admitted to internal medicine for further workup. Consults Time Called: 1323 Consulting Physician: Danya Johnson Returned Call: 1328 I reviewed the patient's case with Danya Johnson. She will evaluate the patient for further management. Impression Primary Impression: Hypoxia Additional Impressions: CHF (congestive heart failure) Bronchitis Scribe Attestation The scribe's documentation has been prepared under my direction and personally reviewed by me in its entirety. I confirm that the note above accurately reflects all work, treatment, procedures, and medical decision making performed by me. Departure Information Dispostion Being Evaluated By Hospitalist Referrals No Doctor, Assigned (PCP) Patient Instructions My [facility] Problem Qualifiers Additional Impressions: CHF (congestive heart failure) Congestive heart failure type: unspecified congestive heart failure type Congestive heart failure chronicity: unspecified congestive heart failure chronicity Qualified Codes: I50.9 - Heart failure, unspecified
[2016-08-14 17:51] LABS: URINE APPEARANCE CLEAR (CLEAR); URINE BILIRUBIN NEG (NEG); URINE COLOR YELLOW; URINE NITRITE NEG (NEG); URINE PH >= 9.0 (4.5-7.5); URINE SPECIFIC GRAVITY 1.011 (1.000-1.030); UROBILINOGEN NEG (NEG)
[2016-08-14 18:00] LABS: MANUAL MICROSCOPIC REQUIRED? YES; REVIEW REQ? NO
[2016-08-14 18:08] LABS: URINE BACTERIA 1+ (NEG); URINE RBC 0-4 /hpf (0-4)
[2016-08-14] MEDS: GABAPENTIN 600 MG TAB PO SCH ×2 (18:39→20:17)
[2016-08-14] MEDS: INSULIN ASPART 100 UNITS/ML 3 ML PEN SC SCH ×2 (18:42→20:18)
[2016-08-14] MEDS ORDERED: CEFTRIAXONE SOD INJ 1 GM in DEXTROSE 5% ADD-VANTAGE 50ML 50 ML IV SCH (20:00)
[2016-08-14] MEDS: NYSTATIN POWDER 15GM BTL EXT SCH (20:12)
[2016-08-14] MEDS: VENLAFAXINE HCL 37.5 MG TAB PO SCH (20:14)
[2016-08-14] MEDS: POTASSIUM CHLORIDE 20 MEQ TABCR PO SCH (20:15)
[2016-08-14] MEDS: METOPROLOL TARTRATE 25 MG TAB PO SCH (20:16)
[2016-08-14] MEDS ORDERED: TAMSULOSIN HCL 0.4 MG CAP PO SCH (21:00)
[2016-08-14] MEDS ORDERED: SIMVASTATIN 40 MG TAB PO SCH (21:00)
[2016-08-14] MEDS ORDERED: FUROSEMIDE 40 MG TAB PO SCH (21:00)
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
[2016-08-14] MEDS ORDERED: NYSTCRE32 TOP (21:26)
[2016-08-14 21:28] LABS: INFLUENZA A PCR Neg for Influ A (NEG); INFLUENZA B PCR Neg for Influ B (NEG)
--- NOTE | 2016-08-14 21:45 | Pharmacy Progress Note ---
Glycemic Control Intl Consult Date of Service Aug 14, 2016. Scope Glycemic Pharmacist consulted by Dr Bernard on 08/14/16 for glycemic control and to write orders per [facility] inpatient glycemic control protocol Objective Weight (Kilograms): 137.300 Accuchecks BSG (last 24hrs): Test 08/14/16 09:39 08/14/16 10:18 08/14/16 13:23 08/14/16 18:36 Bedside Glucose 209 mg/dl (70-99) 173 mg/dl (70-99) 192 mg/dl (70-99) Random Glucose 206 mg/dl (70-99) Test 08/14/16 19:59 Bedside Glucose 152 mg/dl (70-99) Laboratory Data (last 24hrs) Test 08/14/16 10:18 Anion Gap 10.0 mmol/L BUN/Creatinine Ratio 19.2 Blood Urea Nitrogen 23 mg/dl Creatinine 1.20 mg/dl Potassium Level 3.4 mmol/L Sodium Level 139 mmol/L White Blood Count 9.27 K/uL Red Blood Count 5.13 M/uL Hemoglobin 12.1 g/dL Hematocrit 38.8 % Mean Corpuscular Volume 75.6 fL Mean Corpuscular Hemoglobin 23.6 pg Mean Corpuscular Hemoglobin Concent 31.2 g/dl Platelet Count 264 K/uL Mean Platelet Volume 10.6 fL Neutrophils (%) (Auto) 67.3 % Lymphocytes (%) (Auto) 22.4 % Monocytes (%) (Auto) 7.3 % Eosinophils (%) (Auto) 2.7 % Basophils (%) (Auto) 0.2 % Neutrophils # (Auto) 6.23 K/uL Lymphocytes # (Auto) 2.08 K/uL Monocytes # (Auto) 0.68 K/uL Eosinophils # (Auto) 0.25 K/uL Basophils # (Auto) 0.02 K/uL Recent Pertinent Medications Outpatient Anti-diabetic Regimen: * Lantus insulin 35 units qPM + novolog 8 units with breakfast and 12 units with lunch and dinner * A1c = 7.8 % 01/09/16 Risk Factors for Insulin Resistance: * Infection: ceftriaxone IV for treatment of complicated UTI * Diet: T2DM/AHA Assessment & Plan ASSESSMENT: * 76 yo male with h/o T2DM admitted with cough, hypoxia, and nausea. * Per conversation with patient, he only used 25 units of novolog insulin on 08/13. He held his lantus dose because he was not feeling well. Last dose of lantus was administered on 08/12. He reports that nausea has improved and he is now hungry. Of note, the patient required significantly less basal insulin during hospital stay compared to home regimen. * Continue lantus at a reduced dosage of 13 units BID. Dose will be administered BID to assist in dose titration. * ADA & AACE recommend a goal blood sugar range 140-180 mg/dl for the majority of critically ill & non-critically ill patients. However, more stringent targets may be selected in individual cases. Will utilize more stringent goal of 120-160 mg/dl based on patient age & comorbidities. PLAN FOR INPATIENT GLYCEMIC CONTROL: * Basal insulin with LANTUS 13 units SQ BID * half dose to be given if BSG is less than 100 mg/dL * NOVOLOG insulin for correction/prandial coverage per scale ACHS * Goal Range: Low 120 mg/dL - High 160 mg/dL * Correction Factor: 20 mg/dL/unit * Nutritional / Prandial insulin per carb ratio of 1 unit per 10 grams CHO consumed * Please note that the plan above was derived based on current level of insulin resistance and hospital stress. These recommendations are appropriate for inpatient admission only. Plan of care upon discharge will need to be reassessed to avoid potential outpatient hypo/hyperglycemia. Thank you.
[2016-08-14] MEDS: INSULIN GLARGINE SOLOSTAR 100 UNITS/ML 3 ML PEN SC SCH (22:24)
[2016-08-14 23:51] VITALS: BP 132/69; PULSE 72; TEMP 36.4; O2SAT 90
[2016-08-15 03:44] VITALS: BP 145/85; PULSE 66; TEMP 36.3; O2SAT 97
[2016-08-15 05:26] LABS: MEAN CELL VOLUME 77.2 fL (80-100); MEAN CORPUSCULAR HEMOGLOBIN 23.9 pg (25-34); MEAN PLATELET VOLUME 10.2 fL (7.4-10.4); PLATELET COUNT 227 K/uL (130-400); RED BLOOD COUNT 5.44 M/uL (4.7-6.1); WHITE BLOOD COUNT 6.45 K/uL (4.8-10.8)
[2016-08-15 05:47] LABS: PROTHROMBIN TIME (PATIENT) 10.7 SECONDS (9.0-12.0)
[2016-08-15 05:58] LABS: BUN/CREATININE RATIO 15.9 (10-20); CALCIUM 8.7 mg/dl (8.5-10.1); CREATININE 1.2 mg/dl (0.60-1.40); POTASSIUM 3.7 mmol/L (3.5-5.1)
[2016-08-15 07:22] VITALS: BP 134/67; PULSE 69; TEMP 36.3; O2SAT 98
--- NOTE | 2016-08-15 07:29 | Clinical Documentation Query ---
LULA Akers : CLINICAL DOCUMENTATION QUERY Patient is a 76 year old male admitted for the evaluation and treatment of hypoxia. Documentation includes: "COMPLICATED UTI Has chronic indwelling Osorio UA shows trace leukocyte esterase, WBC 10-30, bacteria 1+ Symptomatic with dysuria; No fever, chills, flank pain/ tenderness Started on empiric Rocephin Follow results of urine culture" As appropriate, consider explicitly linking the catheter to the UTI as suggested below as directly impacts DRG assignment and cannot be assumed by the implicit documentation as written above. In your clinical opinion is this patient being managed for: ( ) Complicated UTI due to chronic indwelling Osorio (urethral) catheter ( + ) Other explanation of clinical findings (Please Explain) ( ) Unable to determine (Please Define) ( ) Need to Discuss ( ) Not Agree Likely colonization The medical record reflects the following clinical findings, treatment, and risk factors. Clinical Indicators: As above Treatment: UA, C&S, Empiric Rocephin Risk Factors: Chronic indwelling urethral catheter, history of UTI's Please clarify and document your clinical opinion in the progress notes and discharge summary. Terms such as "probable", "suspected", "likely", "questionable", "possible", or "still to be ruled out" are acceptable. IF IN AGREEMENT, YOU MUST DOCUMENT ABOVE DIAGNOSTIC STATEMENT IN DAILY PROGRESS NOTES AND DISCHARGE SUMMARY. This document is not part of the patient's record. Thank You, Buzz Kemp, JEAN-PIERRE [phone]
[2016-08-15] MEDS: NYSTATIN POWDER 15GM BTL EXT SCH ×2 (07:56→14:02)
[2016-08-15] MEDS: FUROSEMIDE 40 MG TAB PO SCH ×2 (07:56→15:48)
[2016-08-15] MEDS: METOPROLOL TARTRATE 25 MG TAB PO SCH (07:57)
[2016-08-15] MEDS: GABAPENTIN 600 MG TAB PO SCH ×2 (07:58→13:00)
[2016-08-15] MEDS: VENLAFAXINE HCL 37.5 MG TAB PO SCH (07:59)
[2016-08-15] MEDS: POTASSIUM CHLORIDE 20 MEQ TABCR PO SCH (07:59)
[2016-08-15] MEDS: INSULIN GLARGINE SOLOSTAR 100 UNITS/ML 3 ML PEN SC SCH (08:05)
[2016-08-15] MEDS: INSULIN ASPART 100 UNITS/ML 3 ML PEN SC SCH ×2 (08:05→11:59)
[2016-08-15 08:27] LABS: ESTIMATED AVERAGE GLUCOSE 206 mg/dl; HA1C FLAG Normal (Normal)
[2016-08-15] MEDS ORDERED: ENOXAPARIN 40 MG/0.4 ML SYR SQ SCH (09:00)
[2016-08-15] MEDS ORDERED: CEROVITE ADV FORMULA TAB PO SCH (09:00)
[2016-08-15] MEDS ORDERED: FoLIC ACID TAB 400 MCG TAB PO SCH (09:00)
[2016-08-15] MEDS ORDERED: FINASTERIDE 5 MG TAB PO SCH (09:00)
[2016-08-15] MEDS ORDERED: ASPIRIN 81 MG ECTAB PO SCH (09:00)
[2016-08-15] MEDS ORDERED: PANTOprazole INJ 40 MG in SYRINGE 0 ML IV SCH (11:00)
[2016-08-15 11:07] VITALS: BP 145/78; PULSE 64; TEMP 36.5; O2SAT 99
--- NOTE | 2016-08-15 11:22 | Progress Note ---
Internal Med Progress Note Date of Service: Aug 15, 2016. Provider Documentation: SUBJECTIVE: Patient is eager to be discharged. Denies any worsening of SOB, cough No chest pain, fever, chills, leg swelling worsening. On 4 L oxygen now OBJECTIVE: Vital Signs-as noted below General Appearance: + obese, + pertinent finding (alert obese chronically ill 76 year old male, initially cooperative but becomes irritated/ uncooperative) Neck: supple, obese Respiratory/Chest: lungs clear, decreased breath sounds, no respiratory distress, no accessory muscle use, Cardiovascular: regular rate, rhythm, no murmur Abdomen/GI: normal bowel sounds, non tender, soft, + pertinent finding (obese abdomen with large pannus) Genitourinary - Male: + pertinent finding (rordiguez catheter in place draining clear yellow urine); No flank tenderness Extremities/Musculoskelatal: + pertinent finding (trace pretibial edema bilaterally) Neurologic/Psych: alert, oriented x 3, (no gross focal deficit) Skin: + pertinent finding (has papular rash on scrotum. perineum has small stage 2 pressure ulcer and possible stage 1 ulceration vs. chafing. superficial ulceration of right great toe with dry eschar without surrounding erythema. venous stasis change of bilateral lower extremities.) Lab data as noted below. ASSESSMENT & PLAN: HYPOXIA : Likely chronic hypoxia in patient with underlying sleep apnea/ obesity hypoventilation, noncompliant with CPAP, noncompliant with home O2 HS Work up- CXR- cardiomegaly, mild pulmonary vascular congestion, but clinically chronic diastolic CHF appears compensated; CTA chest negative for PE, showed small patchy density L lung base which favors atelectasis -Given dose of Levaquin in ER for possible acute bronchitis .No further antibiotics warranted at this time (afebrile, no leukocytosis, no sputum production) -Influenza Ag negative, Influenza PCR - negative -Incentive spirometry for atelectasis -Continue supplemental O2 per protocol -Start CPAP HS COMPLICATED UTI secondary to chronic indwelling foleys catheter Has chronic indwelling Rodriguez UA shows trace leukocyte esterase, WBC 10-30, bacteria 1+ -Symptomatic with dysuria; No fever, chills, flank pain/ tenderness -Started on empiric Rocephin -Follow results of urine culture/sensitivity MULTIPLE WOUNDS WITH NO SIGNS OF INFECTION Scrotum-papular rash, perineum ulcer/Rt great toe ulcer HYPOKALEMIA -Replaced, monitor HYPERTENSION -BP is mildly elevated at times -Continue Lopressor CHRONIC DIASTOLIC CHF EF 55-60% on echo 02/2016 -Clinically appears compensated -Continue Lasix and metolazone DM TYPE 2 -Basal Lantus -Insulin sliding scale coverage DYSLIPIDEMIA -Continue statin GERD -Continue PPI DEPRESSION/ ANXIETY -Continue Effexor RIGHT LUNG NODULE -Stable on CTA chest -Follow up as outpatient LEFT KIDNEY LESION -Repeat CT a/p in 1 year recommended -Follow up as outpatient DVT PROPHYLAXIS -SCD's CODE STATUS -Full code per my discussion with the patient DISPOSITION -Lives at home with -PT, OT, Social service evaluations requested Vital Signs: Date Time Temp Pulse Resp B/P Pulse Ox O2 Delivery O2 Flow Rate FiO2 08/15/16 08:00 Nasal Cannula 2.0 08/15/16 07:22 36.3 69 20 134/67 98 4.0 08/15/16 04:00 Nasal Cannula 2.0 08/15/16 03:44 36.3 66 20 145/85 97 Nasal Cannula 4.0 08/15/16 00:01 Nasal Cannula 2.0 08/14/16 23:51 36.4 72 18 132/69 90 Nasal Cannula 2.0 08/14/16 17:37 36.5 75 18 147/80 98 Nasal Cannula 2.0 08/14/16 17:04 77 18 154/77 97 Nasal Cannula 2.0 08/14/16 16:28 75 08/14/16 15:42 Nasal Cannula 2.0 08/14/16 15:02 98 Nasal Cannula 2.0 08/14/16 14:59 75 18 137/72 84 Room Air 08/14/16 14:37 74 26 08/14/16 14:31 168/71 08/14/16 14:07 71 15 98 08/14/16 13:37 73 21 08/14/16 13:30 151/68 08/14/16 13:07 76 15 08/14/16 13:01 149/73 08/14/16 12:55 135/63 08/14/16 12:24 75 08/14/16 12:13 72 16 147/66 97 Nasal Cannula 3.0 08/14/16 12:13 147/66 Lab Results: Results Past 24 Hours Test 08/14/16 13:23 08/14/16 13:50 08/14/16 18:35 08/14/16 18:36 Range/Units Bedside Glucose 173 192 70-99 mg/dl Venous Blood pH 7.47 7.36-7.41 Venous Blood Partial Pressure CO2 47 38.0-50.0 mmHg Venous Blood Partial Pressure O2 43 mmHg Venous Blood HCO3 33 mmol/L Venous Blood Oxygen Saturation 78.4 % Venous Blood Base Excess 8.4 mmol/L Influenza Type A (RT-PCR) Neg for Influ A NEG Influenza Type B (RT-PCR) Neg for Influ B NEG Test 08/14/16 19:59 08/15/16 04:42 08/15/16 06:40 Range/Units Bedside Glucose 152 149 70-99 mg/dl White Blood Count 6.45 4.8-10.8 K/uL Red Blood Count 5.44 4.7-6.1 M/uL Hemoglobin 13.0 14.0-18.0 g/dL Hematocrit 42.0 42-52 % Mean Corpuscular Volume 77.2 80-100 fL Mean Corpuscular Hemoglobin 23.9 25-34 pg Mean Corpuscular Hemoglobin Concent 31.0 32-36 g/dl RDW Standard Deviation 48.0 36.4-46.3 fL RDW Coefficient of Variation 17.1 11.5-14.5 % Platelet Count 227 130-400 K/uL Mean Platelet Volume 10.2 7.4-10.4 fL Prothrombin Time 10.7 9.0-12.0 SECONDS Prothromb Time International Ratio 1.0 0.9-1.1 Sodium Level 142 136-145 mmol/L Potassium Level 3.7 3.5-5.1 mmol/L Chloride Level 101 98-107 mmol/L Carbon Dioxide Level 37 21-32 mmol/L Anion Gap 4.0 3-11 mmol/L Blood Urea Nitrogen 19 7-18 mg/dl Creatinine 1.20 0.60-1.40 mg/dl Est Creatinine Clear Calc Drug Dose 73.7 ml/min Estimated GFR () 68.1 Estimated GFR (Non- 58.8 BUN/Creatinine Ratio 15.9 10-20 Random Glucose 142 70-99 mg/dl Estimated Average Glucose 206 mg/dl Hemoglobin A1c 8.8 4.5-5.6 % Calcium Level 8.7 8.5-10.1 mg/dl
--- NOTE | 2016-08-15 14:22 | Pharmacy Progress Note ---
Glycemic Control: Progress Nt Date of Service Aug 15, 2016. Scope Glycemic Pharmacist consulted by Dr Bernard on 08/14/16 for glycemic control and to write orders per [facility] inpatient glycemic control protocol. Objective Accuchecks BSG (last 24hrs): Test 08/14/16 18:36 08/14/16 19:59 08/15/16 04:42 08/15/16 06:40 Bedside Glucose 192 mg/dl (70-99) 152 mg/dl (70-99) 149 mg/dl (70-99) Random Glucose 142 mg/dl (70-99) Test 08/15/16 11:32 Bedside Glucose 194 mg/dl (70-99) Laboratory Data (last 24hrs) HbA1c: Test 08/15/16 04:42 Hemoglobin A1c 8.8 % (4.5-5.6) H Recent Pertinent Medications Outpatient Anti-diabetic Regimen: * Lantus insulin 35 units qPM + novolog 8 units with breakfast and 12 units with lunch and dinner * A1c = 7.8 % 01/09/16 The patient is currently receiving: * Basal insulin: Lantus 13 units every 12 hours * Correctional Insulin: Novolog Correction per scale ACHS Goal Range: Low 120 mg/dL - High 160 mg/dL Correction Factor: 20 mg/dL/unit * Prandial insulin: Per carb ratio of 1 unit per 10 grams CHO consumed Risk Factors for Insulin Resistance: * Infection: ceftriaxone IV for treatment of complicated UTI * Diet: T2DM/AHA Assessment & Plan ASSESSMENT: * 76yo T2DM male with sub-adequate degree of outpatient control * A1c increased from 7.8% 12/2015 --> 8.8% 08/15/16 * Outpatient antidiabetic regimen may need adjusted at discharge vs work with PCP to titrate insulin doses * Pt is currently being dosed with SQ basal bolus insulin regimen similar to outpatient dosing * Basal insulin dose was split BID to help prevent hypo d/t decreased PO intake & N/V * CF/CR dosing per weight/stress * AM fasting BSG is in goal range per inpatient targets at 149mg/dl this AM --> no changes needed to basal insulin regimen * May need increased over the next few days as PO intake increases * Will need to work Lantus dosing back to HS dosing in anticipation of discharge * BSGs increasing from breakfast to lunch despite CHO coverage --> will tighten CR * ADA & AACE recommend a goal blood sugar range 140-180 mg/dl for the majority of critically ill & non-critically ill patients. However, more stringent targets may be selected in individual cases. Will utilize more stringent goal of 120-160 mg/dl based on patient age & comorbidities. PLAN FOR INPATIENT GLYCEMIC CONTROL: * Continue Basal insulin with LANTUS 13 units SQ BID * half dose to be given if BSG is less than 100 mg/dL * Tighten NovoLog insulin for correction/prandial coverage per scale ACHS * Goal Range: Low 120 mg/dL - High 160 mg/dL * Correction Factor: 20 mg/dL/unit * Nutritional / Prandial insulin per carb ratio of 1 unit per 7 grams CHO consumed (was 10) * Please note that the plan above was derived based on current level of insulin resistance and hospital stress. These recommendations are appropriate for inpatient admission only. Plan of care upon discharge will need to be reassessed to avoid potential outpatient hypo/hyperglycemia. Thank you.
[2016-08-15 15:44] VITALS: BP 120/72; PULSE 74; TEMP 36.1; O2SAT 95
--- NOTE | 2016-08-15 15:56 | Discharge Instructions ---
Discharge Instructions Date of Service Aug 15, 2016. Admission Reason for Admission: Hypoxia Discharge Discharge Diagnosis / Problem: 1. Hypoxia Discharge Goals Goal(s): Diagnostic testing, Therapeutic intervention, Prevent Disease Progression Activity Recommendations Activity Limitations: resume your previous activity (as tolerated prior to admission with assistance) . Instructions / Follow-Up Instructions / Follow-Up No changes in medications FOLLOW UP 1. With Dr Carolina bolañosr 08/20/16 at 1:00 PM Current Hospital Diet Patient's current hospital diet: AHA Diet (Heart Healthy), Diabetes Type 2 Diet Discharge Diet Recommended Diet: AHA Diet (Heart Healthy), Low Sodium Diet (2gm Na), Diabetes Type 2 Diet Pending Studies Studies pending at discharge: no Laboratory Results Hemoglobin A1c Test 08/15/16 04:42 Range/Units Estimated Average Glucose 206 mg/dl Hemoglobin A1c 8.8 H 4.5-5.6 % Medical Emergencies . Who to Call and When: Medical Emergencies: If at any time you feel your situation is an emergency, please call 911 immediately. . Non-Emergent Contact Non-Emergency issues call your: Primary Care Provider . . "Provider Documentation" section prepared by Kinjal Cameron. VTE Core Measure Inpt VTE Proph given/why not?: Enoxaparin (Lovenox)SQ
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
[2016-08-15 16:15] VITALS: BP 120/72; PULSE 74; TEMP 36.1; O2SAT 95
[2016-08-16] MEDS ORDERED: METOLAZONE 5 MG TAB PO SCH (08:30)
[2017-02-02] MEDS ORDERED: BENZ-89 PO (22:16)
[2017-02-09] MEDS ORDERED: FRS/40 PO (09:15)
[2017-02-09] MEDS ORDERED: PRV100 PO (11:54)
[2017-02-19] MEDS ORDERED: LSX40 PO (13:04)
[2017-02-19] MEDS ORDERED: NRN300 PO (13:04)
[2017-02-19] MEDS ORDERED: NVLGIPEN SC (13:04)
[2017-02-19] MEDS ORDERED: MODA1TAB5 PO (13:04)
[2017-04-11] MEDS ORDERED: ASPI81TA28 PO (10:28)
[2017-04-11] MEDS ORDERED: FLM4 PO (12:01)
[2017-04-11] MEDS ORDERED: SIMV40TA2 PO (13:32)
[2017-04-11] MEDS ORDERED: FINA5TAB PO (14:08)
[2017-04-11] MEDS ORDERED: FOLI1TAB7 PO (16:41)
[2017-04-11] MEDS ORDERED: NVLGI/PEN SQ (19:10)
[2017-04-11] MEDS ORDERED: INSDGIPEN SQ (19:10)
[2017-04-11] MEDS ORDERED: ACET-1256 PO (19:20)
[2017-04-11] MEDS ORDERED: CEFD300C2 PO (21:51)
== END 2016-08-15 16:55 | disposition home or self-care (01) | DRG 699 ==
LOC: EDBD → ENRESERVTM → ENRESERVDT → EDBD 09:32 → C.EDA 09:33 → C.2T 15:09 → UNDOADMIN 15:09
PROVIDERS: ADMIT Hospitalist; ATTEND Internal Medicine
DX: T83.511A Infection and inflammatory reaction due to indwelling urethral catheter, initial encounter (principal); E66.2 Morbid (severe) obesity with alveolar hypoventilation; I50.32 Chronic diastolic (congestive) heart failure; Z68.41 Body mass index [BMI] 40.0-44.9, adult; J98.11 Atelectasis; R09.02 Hypoxemia; Z99.81 Dependence on supplemental oxygen; N39.0 Urinary tract infection, site not specified; Y84.6 Urinary catheterization as the cause of abnormal reaction of the patient, or of later complication, without mention of misadventure at the time of the procedure; I11.0 Hypertensive heart disease with heart failure; E87.6 Hypokalemia; F32.9 Major depressive disorder, single episode, unspecified; F41.9 Anxiety disorder, unspecified; R91.1 Solitary pulmonary nodule; J20.9 Acute bronchitis, unspecified; K21.9 Gastro-esophageal reflux disease without esophagitis; H54.8 Legal blindness, as defined in USA; I73.9 Peripheral vascular disease, unspecified; Z91.19 Patient's noncompliance with other medical treatment and regimen; L97.519 Non-pressure chronic ulcer of other part of right foot with unspecified severity; J45.909 Unspecified asthma, uncomplicated; E78.5 Hyperlipidemia, unspecified; N40.0 Benign prostatic hyperplasia without lower urinary tract symptoms; E11.42 Type 2 diabetes mellitus with diabetic polyneuropathy; K80.20 Calculus of gallbladder without cholecystitis without obstruction; Z87.891 Personal history of nicotine dependence; Z83.3 Family history of diabetes mellitus; Z82.49 Family history of ischemic heart disease and other diseases of the circulatory system; E11.622 Type 2 diabetes mellitus with other skin ulcer

== ENCOUNTER → 2016-10-15 | Outpatient (CLI) | payer OTHER ==
[~2016-10-15] MED LIST changes: +ACET-1256 PO; +AMOX875T PO; -ANTICRE6 PO; -ASPI325T45 PO; +ASPI81TA28 PO; +BENZ-89 PO; +CEFD300C2 PO; +CEPH500C2 PO; +DXY100 PO; +FINA5TAB PO; +FLM4 PO; +FOLI1TAB7 PO; +GABA-113 PO; -GABA600T PO; +INSDGIPEN SC; +INSDGIPEN SQ; +INSU1INJ2 SC; -INSU70IN2 SC; +LACT10CA3 PO; +LEVO1TAB34 PO; +LSX40 PO; +MAGN400T6 PO; -MAGNESIUM PO; -METH-1305 PO; +METO25TA56 PO; -METO50TA16 PO; +MGNO400 PO; +MODA1TAB5 PO; +MULT-190 PO; +NRN300 PO; +NVLGI/PEN SC; +NVLGI/PEN SQ; +NVLGIPEN SC; +NYST-19 TOP; +NYSTCRE32 TOP; +PRV100 PO; +SIMV40TA2 PO; +TRAM-10 PO; -TRIM100T PO; -VNTHFA/IN INH
[2016-10-15 17:19] LABS: URINE APPEARANCE CLEAR (CLEAR); URINE BILIRUBIN NEG (NEG); URINE COLOR YELLOW; URINE NITRITE POS (NEG); URINE SPECIFIC GRAVITY 1.012 (1.000-1.030); UROBILINOGEN NEG (NEG)
[2016-10-15 17:30] LABS: MANUAL MICROSCOPIC REQUIRED? NO; REVIEW REQ? YES
== END | disposition home or self-care (01) ==
LOC: EDBD → C.LABSPEC 16:35
PROVIDERS: ATTEND Urology
DX: N39.0 Urinary tract infection, site not specified (principal)

== ENCOUNTER → 2016-11-14 | Outpatient (CLI) | payer OTHER ==
[~2016-11-14] MED LIST changes: -ACET-1256 PO; -BENZ-89 PO; -CEFD300C2 PO; +CGN1 PO; -INSDGIPEN SQ; -NVLGI/PEN SQ
[2016-11-14 14:44] LABS: URINE APPEARANCE CLEAR (CLEAR); URINE BILIRUBIN NEG (NEG); URINE COLOR YELLOW; URINE EPITHELIAL CELL AUTO 0-5 /lpf (0-5); URINE NITRITE NEG (NEG); URINE PH 7.5 (4.5-7.5); URINE SPECIFIC GRAVITY 1.012 (1.000-1.030); UROBILINOGEN NEG (NEG)
[2016-11-14 14:46] LABS: MANUAL MICROSCOPIC REQUIRED? NO; REVIEW REQ? NO
== END | disposition home or self-care (01) ==
LOC: EDBD → C.LABSPEC 11:30
DX: N40.1 Benign prostatic hyperplasia with lower urinary tract symptoms (principal)

== ENCOUNTER 2016-11-30 09:07 | Emergency (ER) | payer OTHER ==
[~2016-11-30] VITALS: Ht 157.5 cm; Wt 138.0 kg
[~2016-11-30 09:07] MED LIST changes: -AMOX875T PO; -CEPH500C2 PO; -CGN1 PO; -DXY100 PO; -FOLI1TAB7 PO; -INSU1INJ2 SC; -LACT10CA3 PO; -LEVO1TAB34 PO; -LSX40 PO; -MAGN400T6 PO; -MGNO400 PO; -MODA1TAB5 PO; -NRN300 PO; -NVLGI/PEN SC; -NVLGIPEN SC; -PRV100 PO
[2016-11-30 09:15] VITALS: TEMP 36.8; Ht 157.5 cm; Wt 138.0 kg
[2016-11-30] MEDS ORDERED: CEFTRIAXONE SOD INJ 1 GM ADDVIAL IV STA (09:47)
[2016-11-30] MEDS ORDERED: SODIUM CHLORIDE 0.9% 500ML 500 ML IV STA (09:47)
[2016-11-30] MEDS ORDERED: OXYCODONE HCL IR 5 MG TAB (IMMEDIATE RELEASE) PO STA (10:02)
--- NOTE | 2016-11-30 10:05 | EMERGENCY ROOM VISIT NOTE ---
History Report prepared by Tr: Farideh Hope Under the Supervision of: Dr. Gaston Payne M.D. First contact with patient: 09:20 Chief Complaint: URINARY SYMPTOMS Stated Complaint: UTI Nursing Triage Summary: Pt has chronic indwelling rodriguez "they want you to take a specimen analyze it" Pt reports burning and foul odor to urine History of Present Illness The patient is a 76 year old male who presents to the Emergency Room with complaints of persistent urinary symptoms that started 3 weeks ago. The patient is experiencing burning with urination and foul smelling urine. The patient has a chronic indwelling Rodriguez catheter. He called Dr. Hameed's office and they recommended coming into the ED for a urine culture. The patient is also experiencing weakness when trying to transfer from his chair. He states that the weakness started when his urinary symptoms started. He denies any abdominal pain. The patient was prescribed Amoxicillin 8 days ago for his urinary symptoms but he is not sure if his nurse at home has been giving it to him. The patient is also unsure of who prescribed him the amoxicillin. He has never been evaluated in the hospital or in a clinic for his symptoms. Source of History: patient Onset: 3 weeks ago Position: other (bladder, urinary tract) Quality: other (urinary symptoms) Timing: other (persistent) Associated Symptoms: + weakness, No abdominal pain Review of Systems See HPI for pertinent positives & negatives. A total of 10 systems reviewed and were otherwise negative. Past Medical & Surgical Medical Problems: (1) Anxiety (2) Asthma, cough variant (3) Benign prostatic hyperplasia (4) Depression (5) Diabetes mellitus type 2 (6) Diabetic neuropathy (7) Diabetic peripheral neuropathy associated with type 2 diabetes mellitus (8) Diastolic heart failure (9) Dyslipidemia (10) Essential hypertension (11) Gastroesophageal reflux disease (12) Hypoxia (13) Legal blindness (14) Loss of sensation (15) Morbid obesity (16) Nocturnal hypoxemia (17) Peripheral venous insufficiency (18) Respiratory failure (19) Sleep apnea (20) UTI (urinary tract infection) Surgical Problems: (1) S/P cataract surgery (2) S/P colonoscopy (3) S/p eyelid surgery (4) S/P foot surgery, left (5) S/P panniculectomy (6) S/P tonsillectomy Family History Diabetes mellitus MOTHER BROTHER GRANDMOTHER FH: CAD (coronary artery disease) FATHER (CABG) FH: CHF (congestive heart failure) MOTHER BROTHER GI disorder Hypertension MOTHER Social History Smoking Status: Never Smoker Alcohol Use: none Drug Use: none Marital Status: Housing Status: lives with family Occupation Status: retired Current/Historical Medications Scheduled Aspirin (Aspirin Ec), 81 MG PO DAILY Cephalexin Monohydrate (Keflex), 500 MG PO QID Finasteride (Proscar), 5 MG PO QAM Folic Acid (Folic Acid), 400 MCG PO QAM Furosemide (Lasix), 2 TAB PO BID Gabapentin (Neurontin), 600 MG PO QID Insulin Aspart (Novolog Flexpen), 8 UNITS SC QAM Insulin Aspart (Novolog Flexpen), 12 UNITS SC BID Insulin Glargine (Lantus Solostar), 35 SC QPM Metolazone (Zaroxolyn), 5 MG PO 2XWK Metoprolol Tartrate (Lopressor) (Lopressor), 12.5 MG PO BID Multivitamin (Multivitamin), 1 TAB PO DAILY Nystatin (Topical) (Nyata), 1 APPL TOP TID Nystatin-Triamcinolone (Nystatin/Triamcinolone), 1 APPLN TOP BID Ocuvite Preservision (Ocuvite Preservision), 1 TAB PO DAILY Omeprazole (Prilosec), 20 MG PO QAM Potassium Ext Rel (Klor-Con), 40 MEQ PO BID Simvastatin (Zocor), 40 MG PO HS Tamsulosin HCl (Tamsulosin HCl), 1 CAP PO HS Venlafaxine Hcl (Effexor), 75 MG PO BID Scheduled PRN Tramadol (Ultram), 50 MG PO Q12H PRN for Pain Allergies Coded Allergies: Oxycodone (Verified Adverse Reaction, Unknown, Trouble coming off, 08/14/16) Repoted by , NOT ALLERGIC TO THEM Propoxyphene (Verified Adverse Reaction, Unknown, Trouble coming off of Darvocet., 08/14/16) Reported by Physical Exam Vital Signs Date Time Temp Pulse Resp B/P (MAP) Pulse Ox O2 Delivery O2 Flow Rate FiO2 11/30/16 11:55 65 16 108/64 96 11/30/16 11:07 68 20 125/74 94 Room Air 11/30/16 09:15 36.8 81 22 106/62 94 Room Air Physical Exam GENERAL: Patient is a healthy-appearing well-nourished male HEAD: Normocephalic atraumatic EYES: Ocular movements intact pupils equal and react to light OROPHARYNX mucous membranes are moist no exudates present no erythema or edema present NECK: Supple no nuchal rigidity CHEST: Good equal expansion LUNGS: Clear and equal to auscultation CARDIAC: Normal S1 and S2 ABDOMEN: Soft nontender no guarding BACK: No CVA tenderness : Rodriguez catheter in place EXTREMITIES: No pain upon palpation normal muscle strength in all groups no clubbing cyanosis or edema NEURO: Patient is following commands and answering questions appropriately. Alert and oriented x3 Cranial Nerves 2-12 grossly intact Medical Decision & Procedures Laboratory Results 11/30/16 10:15 Red Blood Count 4.97, Mean Corpuscular Volume 76.7, Mean Corpuscular Hemoglobin 23.5, Mean Corpuscular Hemoglobin Concent 30.7, Mean Platelet Volume 10.2, Neutrophils (%) (Auto) 66.4, Lymphocytes (%) (Auto) 22.2, Monocytes (%) (Auto) 7.3, Eosinophils (%) (Auto) 3.7, Basophils (%) (Auto) 0.1, Neutrophils # (Auto) 7.08, Lymphocytes # (Auto) 2.37, Monocytes # (Auto) 0.78, Eosinophils # (Auto) 0.40, Basophils # (Auto) 0.01 11/30/16 10:15 Test 11/30/16 10:05 11/30/16 10:15 Urine Color YELLOW Urine Appearance CLEAR (CLEAR) Urine pH 7.0 (4.5-7.5) Urine Specific [place] 1.014 (1.000-1.030) Urine Protein NEG (NEG) Urine Glucose (UA) 1+ (NEG) Urine Ketones NEG (NEG) Urine Occult Blood 1+ (NEG) Urine Nitrite POS (NEG) Urine Bilirubin NEG (NEG) Urine Urobilinogen NEG (NEG) Urine Leukocyte Esterase LARGE (NEG) Urine WBC (Auto) >30 /hpf (0-5) Urine RBC (Auto) 10-30 /hpf (0-4) Urine Hyaline Casts (Auto) 1-5 /lpf (0-5) Urine Epithelial Cells (Auto) 0-5 /lpf (0-5) Urine Bacteria (Auto) 2+ (NEG) White Blood Count 10.67 K/uL (4.8-10.8) Red Blood Count 4.97 M/uL (4.7-6.1) Hemoglobin 11.7 g/dL (14.0-18.0) Hematocrit 38.1 % (42-52) Mean Corpuscular Volume 76.7 fL (80-100) Mean Corpuscular Hemoglobin 23.5 pg (25-34) Mean Corpuscular Hemoglobin Concent 30.7 g/dl (32-36) Platelet Count 305 K/uL (130-400) Mean Platelet Volume 10.2 fL (7.4-10.4) Neutrophils (%) (Auto) 66.4 % Lymphocytes (%) (Auto) 22.2 % Monocytes (%) (Auto) 7.3 % Eosinophils (%) (Auto) 3.7 % Basophils (%) (Auto) 0.1 % Neutrophils # (Auto) 7.08 K/uL (1.4-6.5) Lymphocytes # (Auto) 2.37 K/uL (1.2-3.4) Monocytes # (Auto) 0.78 K/uL (0.11-0.59) Eosinophils # (Auto) 0.40 K/uL (0-0.5) Basophils # (Auto) 0.01 K/uL (0-0.2) RDW Standard Deviation 47.3 fL (36.4-46.3) RDW Coefficient of Variation 16.8 % (11.5-14.5) Immature Granulocyte % (Auto) 0.3 % Immature Granulocyte # (Auto) 0.03 K/uL (0.00-0.02) Anion Gap 8.0 mmol/L (3-11) Est Creatinine Clear Calc Drug Dose 52.9 ml/min Estimated GFR () 52.0 Estimated GFR (Non- 44.9 BUN/Creatinine Ratio 21.6 (10-20) Calcium Level 9.4 mg/dl (8.5-10.1) Total Bilirubin 0.4 mg/dl (0.2-1) Direct Bilirubin 0.1 mg/dl (0-0.2) Aspartate Amino Transf (AST/SGOT) 12 U/L (15-37) Alanine Aminotransferase (ALT/SGPT) 19 U/L (12-78) Alkaline Phosphatase 104 U/L (45-117) Total Protein 7.6 gm/dl (6.4-8.2) Albumin 3.0 gm/dl (3.4-5.0) Lipase 94 U/L (73-393) Beta-Hydroxybutyric Acid 0.90 mg/dL (0.2-2.81) Labs reviewed by ED physician. Medications Administered Medications (Trade) Dose Ordered Sig/Bj Route Start Time Stop Time Status Last Admin Dose Admin Ceftriaxone Sodium (Rocephin Inj) 1 gm NOW STAT IV 11/30/16 09:47 11/30/16 09:48 DC 11/30/16 10:28 1 GM Sodium Chloride 500 ml @ 999 mls/hr Q31M STAT IV 11/30/16 09:47 11/30/16 10:17 DC 11/30/16 10:31 999 MLS/HR Oxycodone HCl (Roxicodone Immediate Rel Tab) 10 mg NOW STAT PO 11/30/16 10:02 11/30/16 10:03 DC 11/30/16 10:28 10 MG Insulin Human Regular (novoLIN-R U-100 PER UNIT) 10 units NOW STAT SC 11/30/16 10:58 11/30/16 10:59 DC 11/30/16 11:33 10 UNITS ED Course 0920: The medical student evaluated the patient at this time. We discussed her findings and potential treatment plans. 0940: Past medical records reviewed. The patient was evaluated in room B12. A complete history and physical examination was performed. 0947: Ordered Sodium Chloride 500 ml @ 999 mls/hr IV, Rocephin Inj 1 gm IV 1002: The nurse said that the patient would like oxycodone for pain. Ordered Oxycodone HCl 10 mg PO 1058: Ordered Insulin Human Regular 10 units SC 1110: Upon reexamination the patient is doing well. I discussed results and treatment plan with the patient. He verbalizes agreement and understanding. The patient is ready for discharge. Medical Decision Differential diagnosis: Etiologies such as renal colic, appendicitis, diverticulitis, mesenteric ischemia, aortic pathology, infections, inflammatory bowel disease, PUD, biliary pathology, UTI, as well as others were entertained. This is a 76-year-old male who presents emergency department complaining of urinary symptoms. The patient was sent here by his urologist over concerns that the patient up pain a urine culture. I will note that the patient grew out Proteus on his urine culture a week ago. Based on this finding the patient was given IV Rocephin and will be continued on Keflex at home. Patient was in agreement with the treatment plan. Medication Reconcilliation Current Medication List: was personally reviewed by me Blood Pressure Screening Patient's blood pressure: Normal blood pressure Impression Primary Impression: UTI (urinary tract infection) Scribe Attestation The scribe's documentation has been prepared under my direction and personally reviewed by me in its entirety. I confirm that the note above accurately reflects all work, treatment, procedures, and medical decision making performed by me. Departure Information Dispostion Home / Self-Care Prescriptions Cephalexin Monohydrate (KEFLEX) 500 Mg Cap 500 MG PO QID for 10 Days, #40 CAP Prov: Gaston Payne MD 11/30/16 Referrals Syed Valdivia, D.OMalcolm (PCP) Forms HOME CARE DOCUMENTATION FORM, IMPORTANT VISIT INFORMATION Patient Instructions ED UTI Cystitis Male, My [facility] Additional Instructions Follow up with DR Hameed's office Culture results are usually available in approx 48 hours You have been examined and treated today on an emergency basis only. This is not a substitute for, or an effort to provide, complete comprehensive medical care. It is impossible to recognize and treat all injuries or illnesses in a single emergency department visit. It is therefore important that you follow up closely with Dr Valdivia. Call as soon as possible for an appointment. Thank you for your time and consideration. I look forward to speaking with you again soon. Please don't hesitate to call us if you have any questions. Problem Qualifiers Primary Impression: UTI (urinary tract infection) Urinary tract infection type: acute cystitis Hematuria presence: without hematuria Qualified Codes: N30.00 - Acute cystitis without hematuria
[2016-11-30] MEDS ORDERED: NVLGI/PEN SC (10:06)
[2016-11-30] MEDS ORDERED: NVLGIPEN SC (10:06)
[2016-11-30 10:29] LABS: BASO % 0.1 %; BASO ABS # 0.01 K/uL (0-0.2); COMPLETE YES; EOS % 3.7 %; HEMATOCRIT 38.1 % (42-52); IG% 0.3 %; LYMPH % 22.2 %; LYMPH ABS # 2.37 K/uL (1.2-3.4); MEAN CELL VOLUME 76.7 fL (80-100); MEAN CORPUSCULAR HEMOGLOBIN 23.5 pg (25-34); MEAN CORPUSCULAR HGB CONC 30.7 g/dl (32-36); MEAN PLATELET VOLUME 10.2 fL (7.4-10.4); MONO % 7.3 %; NEUT % 66.4 %; PLATELET COUNT 305 K/uL (130-400); RED BLOOD COUNT 4.97 M/uL (4.7-6.1); WHITE BLOOD COUNT 10.67 K/uL (4.8-10.8)
[2016-11-30 10:49] LABS: URINE APPEARANCE CLEAR (CLEAR); URINE BILIRUBIN NEG (NEG); URINE COLOR YELLOW; URINE EPITHELIAL CELL AUTO 0-5 /lpf (0-5); URINE NITRITE POS (NEG); URINE SPECIFIC GRAVITY 1.014 (1.000-1.030); UROBILINOGEN NEG (NEG); ZZURINE CULT IF INDIC CATH YES
[2016-11-30 10:53] LABS: BUN/CREATININE RATIO 21.6 (10-20); CALCIUM 9.4 mg/dl (8.5-10.1); CREATININE 1.5 mg/dl (0.60-1.40); POTASSIUM 3.8 mmol/L (3.5-5.1)
[2016-11-30 10:56] LABS: MANUAL MICROSCOPIC REQUIRED? NO; REVIEW REQ? NO
[2016-11-30] MEDS ORDERED: NovoLIN-R INSULIN PER UNIT CHARGE SC STA (10:58)
[2016-11-30 11:07] LABS: BETA-HYDROXYBUTYRATE 0.9 mg/dL (0.2-2.81)
[2016-11-30] MEDS ORDERED: CEPH500C2 PO (11:08)
[2016-11-30 11:55] VITALS: BP 108/64; PULSE 65; O2SAT 96
[2017-02-09] MEDS ORDERED: FRS/40 PO (09:15)
[2017-02-09] MEDS ORDERED: PRV100 PO (11:54)
[2017-02-19] MEDS ORDERED: NVLGIPEN SC (13:04)
[2017-02-19] MEDS ORDERED: LSX40 PO (13:04)
[2017-02-19] MEDS ORDERED: NRN300 PO (13:04)
[2017-02-19] MEDS ORDERED: MODA1TAB5 PO (13:04)
== END 2016-11-30 12:00 | disposition home or self-care (01) ==
LOC: EDBD → C.EDB 09:08
DX: N39.0 Urinary tract infection, site not specified (principal); F41.9 Anxiety disorder, unspecified; J45.991 Cough variant asthma; N40.0 Benign prostatic hyperplasia without lower urinary tract symptoms; F32.9 Major depressive disorder, single episode, unspecified; E11.43 Type 2 diabetes mellitus with diabetic autonomic (poly)neuropathy; E78.5 Hyperlipidemia, unspecified; K21.9 Gastro-esophageal reflux disease without esophagitis; G47.30 Sleep apnea, unspecified; I50.32 Chronic diastolic (congestive) heart failure; I11.0 Hypertensive heart disease with heart failure; H54.8 Legal blindness, as defined in USA; E66.01 Morbid (severe) obesity due to excess calories; Z68.43 Body mass index [BMI] 50.0-59.9, adult; Z98.49 Cataract extraction status, unspecified eye; Z83.3 Family history of diabetes mellitus; Z82.49 Family history of ischemic heart disease and other diseases of the circulatory system; Z79.82 Long term (current) use of aspirin; Z79.4 Long term (current) use of insulin; Z79.899 Other long term (current) drug therapy

== ENCOUNTER 2017-01-06 04:26 | Emergency (ER) | payer OTHER ==
[~2017-01-06] VITALS: Ht 177.8 cm; Wt 137.6 kg
[2017-01-06 04:26] VITALS: TEMP 37; Ht 177.8 cm; Wt 137.6 kg
[~2017-01-06 04:26] MED LIST changes: -INSUINJ14 SC; +NVLGI/PEN SC; +NVLGIPEN SC
[2017-01-06 05:30] LABS: URINE APPEARANCE CLEAR (CLEAR); URINE BILIRUBIN NEG (NEG); URINE COLOR YELLOW; URINE EPITHELIAL CELL AUTO 0-5 /lpf (0-5); URINE NITRITE NEG (NEG); URINE PH 7.5 (4.5-7.5); URINE SPECIFIC GRAVITY 1.015 (1.000-1.030); UROBILINOGEN POS (NEG)
[2017-01-06 05:31] LABS: MANUAL MICROSCOPIC REQUIRED? NO; REVIEW REQ? NO
[2017-01-06 05:56] VITALS: BP 173/79; PULSE 91; O2SAT 92
[2017-01-06] MEDS ORDERED: LEVOFLOXACIN 500 MG TAB PO STA (05:59)
[2017-01-06] MEDS ORDERED: PHENAZOPYRIDINE HCL 200 MG TAB PO STA (06:12)
[2017-01-06] MEDS ORDERED: LEVO1TAB34 PO (06:16)
[2017-01-06] MEDS ORDERED: LEVOFLOXACIN 250 MG TAB ONE (06:39)
--- NOTE | 2017-01-06 06:50 | EMERGENCY ROOM VISIT NOTE ---
History Report prepared by Tr: Miriam Waters Under the Supervision of: Dr. Lay Brooks D.O. First contact with patient: 04:58 Chief Complaint: OTHER COMPLAINT Stated Complaint: CATHETER PAIN/SHORT OF BREATH History of Present Illness The patient is a 76 year old male who presents to the Emergency Room with complaints of persistent penis pain starting earlier today. The patient has a catheter in place. He thinks that he might have pulled out the catheter causing pain. He describes the pain as burning. He has some SOB and notes that he has a history of CHF. His breathing has been about normal recently. He states that the redness on his legs is normal. Source of History: patient Onset: earlier today Position: other (penis) Quality: burning Timing: other (persistent) Associated Symptoms: + SOB Review of Systems See HPI for pertinent positives & negatives. A total of 10 systems reviewed and were otherwise negative. Past Medical & Surgical Medical Problems: (1) Anxiety (2) Asthma, cough variant (3) Benign prostatic hyperplasia (4) Depression (5) Diabetes mellitus type 2 (6) Diabetic neuropathy (7) Diabetic peripheral neuropathy associated with type 2 diabetes mellitus (8) Diastolic heart failure (9) Dyslipidemia (10) Essential hypertension (11) Gastroesophageal reflux disease (12) Hypoxia (13) Legal blindness (14) Loss of sensation (15) Morbid obesity (16) Nocturnal hypoxemia (17) Peripheral venous insufficiency (18) Pre-ulcerative corn or callous (19) Respiratory failure (20) Sleep apnea (21) UTI (urinary tract infection) Surgical Problems: (1) S/P cataract surgery (2) S/P colonoscopy (3) S/p eyelid surgery (4) S/P foot surgery, left (5) S/P panniculectomy (6) S/P tonsillectomy Family History Diabetes mellitus MOTHER BROTHER GRANDMOTHER FH: CAD (coronary artery disease) FATHER (CABG) FH: CHF (congestive heart failure) MOTHER BROTHER GI disorder Hypertension MOTHER Social History Smoking Status: Former Smoker Alcohol Use: none Drug Use: none Marital Status: Housing Status: lives with family Occupation Status: retired Current/Historical Medications Scheduled Aspirin (Aspirin Ec), 81 MG PO DAILY Finasteride (Proscar), 5 MG PO QAM Folic Acid (Folic Acid), 400 MCG PO QAM Furosemide (Lasix), 2 TAB PO BID Gabapentin (Neurontin), 600 MG PO QID Insulin Aspart (Novolog Flexpen), 8 UNITS SC QAM Insulin Aspart (Novolog Flexpen), 12 UNITS SC BID Insulin Glargine (Lantus Solostar), 35 SC QPM Levofloxacin (Levaquin), 1 TAB PO DAILY Metolazone (Zaroxolyn), 5 MG PO 2XWK Metoprolol Tartrate (Lopressor) (Lopressor), 12.5 MG PO BID Multivitamin (Multivitamin), 1 TAB PO DAILY Nystatin (Topical) (Nyata), 1 APPL TOP TID Nystatin-Triamcinolone (Nystatin/Triamcinolone), 1 APPLN TOP BID Ocuvite Preservision (Ocuvite Preservision), 1 TAB PO DAILY Omeprazole (Prilosec), 20 MG PO QAM Potassium Ext Rel (Klor-Con), 40 MEQ PO BID Simvastatin (Zocor), 40 MG PO HS Tamsulosin HCl (Tamsulosin HCl), 1 CAP PO HS Venlafaxine Hcl (Effexor), 75 MG PO BID Scheduled PRN Tramadol (Ultram), 50 MG PO Q12H PRN for Pain Allergies Coded Allergies: Oxycodone (Verified Adverse Reaction, Unknown, Trouble coming off, 01/06/17 ) Repoted by , NOT ALLERGIC TO THEM Propoxyphene (Verified Adverse Reaction, Unknown, Trouble coming off of Darvocet., 01/06/17) Reported by Physical Exam Vital Signs Date Time Temp Pulse Resp B/P (MAP) Pulse Ox O2 Delivery O2 Flow Rate FiO2 01/06/17 05:56 91 21 173/79 92 Room Air 01/06/17 04:26 37.0 90 22 153/58 93 Room Air Physical Exam HEENT: Head - normocephalic and atraumatic Pupils are equal, round, and reactive to light. Extraocular eye muscles are intact, and sclera are anicteric. Nose - moist nasal mucosa without discharge. Mouth - moist buccal mucosa. Oropharynx is nonerythematous and there is no tonsillar exudate or edema noted. Neck: Supple; no JVD, nuchal rigidity, cervical lymphadenopathy. Heart: Regular rate and rhythm. Heart sounds are distant secondary to body habitus. There is a normal S1 and S2 with no murmurs, clicks, or gallops appreciated. Lungs: Clear to auscultation bilaterally with no wheezes, rales, or rhonchi. Abdomen: Soft, completely nontender, nondistended, with good bowel sounds. There are no palpable pulsatile masses or hepatosplenomegaly. There is no guarding, rigidity, or rebound noted. Extremities: No evidence of cyanosis, clubbing, or edema. There are easily palpable peripheral pulses. Skin: warm and dry with good turgor. Redness to anterior aspect of both lower legs. There are some small wounds about both shins which the patient describes as chronic. Bedsores on both posterior thighs and buttocks. Medical Decision & Procedures Laboratory Results Test 01/06/17 04:50 Urine Color YELLOW Urine Appearance CLEAR (CLEAR) Urine pH 7.5 (4.5-7.5) Urine Specific [place] 1.015 (1.000-1.030) Urine Protein NEG (NEG) Urine Glucose (UA) NEG (NEG) Urine Ketones NEG (NEG) Urine Occult Blood 2+ (NEG) Urine Nitrite NEG (NEG) Urine Bilirubin NEG (NEG) Urine Urobilinogen POS (NEG) Urine Leukocyte Esterase MODERATE (NEG) Urine WBC (Auto) >30 /hpf (0-5) Urine RBC (Auto) >30 /hpf (0-4) Urine Hyaline Casts (Auto) 1-5 /lpf (0-5) Urine Epithelial Cells (Auto) 0-5 /lpf (0-5) Urine Bacteria (Auto) NEG (NEG) Laboratory results per my review. Medications Administered Medications (Trade) Dose Ordered Sig/Bj Route Start Time Stop Time Status Last Admin Dose Admin Phenazopyridine HCl (Pyridium Tab) 200 mg NOW STAT PO 01/06/17 06:12 01/06/17 06:13 DC 01/06/17 06:41 200 MG Levofloxacin (Levaquin Tab) 500 mg STK-MED ONCE .ROUTE 01/06/17 06:39 01/06/17 06:40 DC 01/06/17 06:41 500 MG Procedure Medications: Levofloxacin 500 mg PO, Pyridium Tab 200 mg PO. ED Course 0514: The patient was evaluated in room A10. A complete history and physical examination were performed. Nursing notes and previous electronic medical records were reviewed. Nursing staff were able to remove the Osorio catheter that had been slightly pulled out by the patient. They replaced it with a new Osorio catheter. A urine specimen was obtained and was concerning for recurrent urinary infection. 0545: Nursing staff applied cream to bed sores. 0557: I have looked at the results of his previous urine cultures. 0559: Levofloxacin 500 mg PO. 0612: Pyridium Tab 200 mg PO. 0617: Upon reevaluation, the patient is resting comfortably. I discussed findings and results with him. He verbalized agreement of the treatment plan. He was discharged home. Medical Decision The patient is a 76 year old male who presents to the ED with penis pain. Differential diagnosis includes UTI, urethral trauma, CHF, bedsores. Labs: urinalysis shows 2+ blood, positive urobilinogen, moderate leukocyte esterase, >30 white cells, >30 red cells. The patient accidentally pulled his Osorio catheter out of position. The catheter was removed and a new one was placed. Urinalysis revealed evidence of an infection. The patient has had multiple previous UTIs. His urinary cultures were reviewed. Most recently, the patient had a Klebsiella UTI. I've opted to use Levaquin until cultures return. The patient was more comfortable with the new Osorio catheter in place. He did complain about the skin lesions on his buttocks and legs. Nursing staff were able to apply cream to those wounds. He does follow up closely with the wound care center as he describes it. We did talk a little bit about the patient's shortness of breath. He describes chronic shortness of breath and feels that his symptoms are no different than usual. We did talk about how active he was this weekend with attending his son's wedding. His vital signs are stable. I've asked him to follow up with his PCP if he has any worsening shortness of breath. Medication Reconcilliation Current Medication List: was personally reviewed by me Blood Pressure Screening Patient's blood pressure: Elevated blood pressure Blood pressure disposition: Elevated BP felt to be situational Impression Primary Impression: UTI (urinary tract infection) due to urinary indwelling catheter Additional Impression: Urethral pain Scribe Attestation The scribe's documentation has been prepared under my direction and personally reviewed by me in its entirety. I confirm that the note above accurately reflects all work, treatment, procedures, and medical decision making performed by me. Departure Information Dispostion Home / Self-Care Prescriptions Levofloxacin (LEVAQUIN) 500 Mg Tab 1 TAB PO DAILY for 10 Days, #10 TAB Prov: Lay Brooks D.O. 01/06/17 Referrals Syed Valdivia D.O. (PCP) Forms HOME CARE DOCUMENTATION FORM, IMPORTANT VISIT INFORMATION, WORK / SCHOOL INSTRUCTIONS Patient Instructions My [facility], UTI Additional Instructions Rest Take plenty of clear liquids and a bland diet Take Levaquin daily...await results of culture of urine Follow up with PCP on Saturday Problem Qualifiers Primary Impression: UTI (urinary tract infection) due to urinary indwelling catheter Indwelling urinary catheter type: indwelling urethral catheter Encounter type : initial encounter Qualified Codes: T83.511A - Infection and inflammatory reaction due to indwelling urethral catheter, initial encounter; N39.0 - Urinary tract infection, site not specified
[2017-02-09] MEDS ORDERED: FRS/40 PO (09:15)
[2017-02-09] MEDS ORDERED: PRV100 PO (11:54)
[2017-02-19] MEDS ORDERED: MODA1TAB5 PO (13:04)
[2017-02-19] MEDS ORDERED: NRN300 PO (13:04)
[2017-02-19] MEDS ORDERED: NVLGIPEN SC (13:04)
[2017-02-19] MEDS ORDERED: LSX40 PO (13:04)
== END 2017-01-06 06:55 | disposition home or self-care (01) ==
LOC: EDBD → C.EDA 04:27
DX: T83.511A Infection and inflammatory reaction due to indwelling urethral catheter, initial encounter (principal); N39.0 Urinary tract infection, site not specified; N50.89 Other specified disorders of the male genital organs; X58.XXXA Exposure to other specified factors, initial encounter; F41.9 Anxiety disorder, unspecified; J45.909 Unspecified asthma, uncomplicated; N40.0 Benign prostatic hyperplasia without lower urinary tract symptoms; E11.9 Type 2 diabetes mellitus without complications; E78.5 Hyperlipidemia, unspecified; I10 Essential (primary) hypertension; K21.9 Gastro-esophageal reflux disease without esophagitis; H54.0 Blindness, both eyes; E66.01 Morbid (severe) obesity due to excess calories; R09.02 Hypoxemia; G47.30 Sleep apnea, unspecified; Z83.3 Family history of diabetes mellitus; Z82.49 Family history of ischemic heart disease and other diseases of the circulatory system; Z87.891 Personal history of nicotine dependence; Z79.82 Long term (current) use of aspirin; Z79.4 Long term (current) use of insulin

== ENCOUNTER 2017-02-02 19:55 | Inpatient (IN) | payer OTHER ==
[~2017-02-02] VITALS: Ht 177.8 cm; Wt 128.3 kg
[2017-02-02] MEDS ORDERED: LIDODERM (LIDOCAINE) PATCH 5% TD STA (20:22)
[2017-02-02] MEDS ORDERED: HYDROmorphone INJ 2 MG/ML SYR/VIAL IM STA (20:22)
[2017-02-02] MEDS ORDERED: KETOROLAC TROMETHAMINE 60 MG/2 ML VIAL IM STA (20:22)
[2017-02-02] MEDS ORDERED: BENZTROPINE MESYLATE 1 MG/ML 2 ML AMP IM STA (21:16)
[2017-02-02] MEDS ORDERED: HYDROmorphone INJ 1 MG/ML SYR IM STA (21:32)
[2017-02-02] MEDS ORDERED: PROMETHAZINE HCL INJ 25 MG/ML 1 ML VIAL IM STA (21:32)
--- NOTE | 2017-02-02 21:41 | EMERGENCY ROOM VISIT NOTE ---
History Report prepared by Tr: Mala Bedolla Under the Supervision of: Dr. Gaston Payne M.D. First contact with patient: 20:17 Chief Complaint: NECK PAIN Stated Complaint: NECK PAIN History of Present Illness The patient is a 75 year old male who presents to the Emergency Room with complaints of worsening neck pain starting last night. The patient currently rates his pain as a 10/10 in severity. He reports that a few days ago he fell out of bed and refused treatment from EMS. He reports that he has not taken anything for the pain. The patient denies loss of consciousness, shortness of breath, numbness, and tingling. Source of History: patient Onset: last night Position: neck Symptom Intensity: 10/10 Timing: worsening Associated Symptoms: No LOC, No SOB, No numbness Note: The patient denies tingling. Review of Systems See HPI for pertinent positives & negatives. A total of 10 systems reviewed and were otherwise negative. Past Medical & Surgical Medical Problems: (1) Altered mental status (2) Anxiety (3) Asthma, cough variant (4) Benign prostatic hyperplasia (5) Depression (6) Diabetes mellitus type 2 (7) Diabetic neuropathy (8) Diabetic peripheral neuropathy associated with type 2 diabetes mellitus (9) Diastolic heart failure (10) Dyslipidemia (11) Essential hypertension (12) Gastroesophageal reflux disease (13) Hypoxia (14) Legal blindness (15) Loss of sensation (16) Morbid obesity (17) Nocturnal hypoxemia (18) Obesity hypoventilation syndrome (19) Peripheral venous insufficiency (20) Pre-ulcerative corn or callous (21) Respiratory failure (22) Sleep apnea (23) UTI (urinary tract infection) Surgical Problems: (1) S/P cataract surgery (2) S/P colonoscopy (3) S/p eyelid surgery (4) S/P foot surgery, left (5) S/P panniculectomy (6) S/P tonsillectomy Family History Diabetes mellitus MOTHER BROTHER GRANDMOTHER FH: CAD (coronary artery disease) FATHER (CABG) FH: CHF (congestive heart failure) MOTHER BROTHER GI disorder Hypertension MOTHER Social History Smoking Status: Never Smoker Alcohol Use: none Drug Use: none Marital Status: Housing Status: lives with family Occupation Status: retired Current/Historical Medications Scheduled Aspirin (Aspirin Ec), 81 MG PO DAILY Benztropine Mesylate (Cogentin), 1 MG PO BID Finasteride (Proscar), 5 MG PO QAM Folic Acid (Folic Acid), 400 MCG PO QAM Furosemide (Lasix), 2 TAB PO BID Gabapentin (Neurontin), 600 MG PO QID Insulin Aspart (Novolog Flexpen), 8 UNITS SC QAM Insulin Aspart (Novolog Flexpen), 12 UNITS SC BID Insulin Glargine (Lantus Solostar), 35 SC QPM Metolazone (Zaroxolyn), 5 MG PO 2XWK Metoprolol Tartrate (Lopressor) (Lopressor), 12.5 MG PO BID Multivitamin (Multivitamin), 1 TAB PO DAILY Nystatin (Topical) (Nyata), 1 APPL TOP TID Nystatin-Triamcinolone (Nystatin/Triamcinolone), 1 APPLN TOP BID Ocuvite Preservision (Ocuvite Preservision), 1 TAB PO DAILY Omeprazole (Prilosec), 20 MG PO QAM Potassium Ext Rel (Klor-Con), 40 MEQ PO BID Simvastatin (Zocor), 40 MG PO HS Tamsulosin HCl (Tamsulosin HCl), 1 CAP PO HS Venlafaxine Hcl (Effexor), 75 MG PO BID Scheduled PRN Tramadol (Ultram), 50 MG PO Q12H PRN for Pain Allergies Coded Allergies: Oxycodone (Verified Adverse Reaction, Unknown, Trouble coming off, 02/03/17 ) Repoted by , NOT ALLERGIC TO THEM Propoxyphene (Verified Adverse Reaction, Unknown, Trouble coming off of Darvocet., 02/03/17) Reported by Physical Exam Vital Signs Date Time Temp Pulse Resp B/P (MAP) Pulse Ox O2 Delivery O2 Flow Rate FiO2 02/03/17 06:06 71 20 100 Mechanical Ventilator 02/03/17 06:02 174/83 02/03/17 05:41 47 02/03/17 05:36 67 20 100 Mechanical Ventilator 02/03/17 05:35 100 02/03/17 05:31 145/92 02/03/17 05:25 30 02/03/17 05:10 161/80 02/03/17 05:01 123/58 02/03/17 04:36 64 10 96 02/03/17 04:33 36.4 02/03/17 04:31 134/85 9/24/17 04:06 65 15 99 BiPAP 02/03/17 04:01 119/59 02/03/17 03:36 67 12 100 BiPAP 02/03/17 03:34 67 100 30 02/03/17 03:31 135/67 02/03/17 03:30 68 22 92 Nasal Cannula 2.0 02/03/17 03:18 97 Nasal Cannula 2.0 02/03/17 02:31 124/64 02/03/17 02:30 72 18 99 Nasal Cannula 4.0 02/03/17 02:23 146/67 02/03/17 02:22 74 02/03/17 01:05 82 18 133/76 92 Free Flow/Blowby 4.0 02/02/17 23:00 83 18 126/88 94 02/02/17 20:01 36.6 75 18 117/45 90 Room Air Physical Exam GENERAL: Patient is a healthy-appearing well-nourished. Patient is writhing on the bed. HEAD: Normocephalic atraumatic EYES: Ocular movements intact pupils equal and react to light OROPHARYNX mucous membranes are moist no exudates present no erythema or edema present NECK: Supple no nuchal rigidity CHEST: Good equal expansion LUNGS: Clear and equal to auscultation CARDIAC: Normal S1 and S2 ABDOMEN: Soft nontender no guarding BACK: No CVA tenderness EXTREMITIES: No pain upon palpation normal muscle strength in all groups no clubbing cyanosis or edema NEURO: Patient is following commands and answering questions appropriately. Alert and oriented x3 Cranial Nerves 2-12 grossly intact Medical Decision & Procedures Laboratory Results 02/03/17 02:24 Red Blood Count 4.38, Mean Corpuscular Volume 76.7, Mean Corpuscular Hemoglobin 22.6, Mean Corpuscular Hemoglobin Concent 29.5, Mean Platelet Volume 9.5, Neutrophils (%) (Auto) 53.9, Lymphocytes (%) (Auto) 32.7, Monocytes (%) (Auto) 7.3, Eosinophils (%) (Auto) 5.4, Basophils (%) (Auto) 0.2, Neutrophils # (Auto) 4.60, Lymphocytes # (Auto) 2.79, Monocytes # (Auto) 0.62, Eosinophils # (Auto) 0.46, Basophils # (Auto) 0.02 02/03/17 02:24 Test 02/03/17 02:24 02/03/17 02:55 02/03/17 03:24 White Blood Count 8.53 K/uL (4.8-10.8) Red Blood Count 4.38 M/uL (4.7-6.1) Hemoglobin 9.9 g/dL (14.0-18.0) Hematocrit 33.6 % (42-52) Mean Corpuscular Volume 76.7 fL (80-100) Mean Corpuscular Hemoglobin 22.6 pg (25-34) Mean Corpuscular Hemoglobin Concent 29.5 g/dl (32-36) Platelet Count 241 K/uL (130-400) Mean Platelet Volume 9.5 fL (7.4-10.4) Neutrophils (%) (Auto) 53.9 % Lymphocytes (%) (Auto) 32.7 % Monocytes (%) (Auto) 7.3 % Eosinophils (%) (Auto) 5.4 % Basophils (%) (Auto) 0.2 % Neutrophils # (Auto) 4.60 K/uL (1.4-6.5) Lymphocytes # (Auto) 2.79 K/uL (1.2-3.4) Monocytes # (Auto) 0.62 K/uL (0.11-0.59) Eosinophils # (Auto) 0.46 K/uL (0-0.5) Basophils # (Auto) 0.02 K/uL (0-0.2) RDW Standard Deviation 50.7 fL (36.4-46.3) RDW Coefficient of Variation 18.0 % (11.5-14.5) Immature Granulocyte % (Auto) 0.5 % Immature Granulocyte # (Auto) 0.04 K/uL (0.00-0.02) Prothrombin Time 10.4 SECONDS (9.0-12.0) Prothromb Time International Ratio 1.0 (0.9-1.1) Activated Partial Thromboplast Time 22.2 SECONDS (21.0-31.0) Partial Thromboplastin Ratio 0.9 Anion Gap 8.0 mmol/L (3-11) Estimated GFR () 56.6 Estimated GFR (Non- 48.8 BUN/Creatinine Ratio 11.9 (10-20) Calcium Level 8.3 mg/dl (8.5-10.1) Total Bilirubin 0.3 mg/dl (0.2-1) Direct Bilirubin mg/dl (0-0.2) Aspartate Amino Transf (AST/SGOT) 42 U/L (15-37) Alanine Aminotransferase (ALT/SGPT) 25 U/L (12-78) Alkaline Phosphatase 98 U/L (45-117) Ammonia 28.0 umol/L (11-32) Total Creatine Kinase 258 U/L (39-308) Creatine Kinase MB 5.6 ng/ml (0.5-3.6) Creatine Kinase MB Ratio 2.2 (0-3.0) Total Protein 7.3 gm/dl (6.4-8.2) Albumin 2.8 gm/dl (3.4-5.0) Lipase 58 U/L (73-393) Thyroid Stimulating Hormone (TSH) 2.090 uIu/ml (0.300-4.500) Chemistry Specimen Hemolysis Urine Color DK YELLOW Urine Appearance CLOUDY (CLEAR) Urine pH 7.5 (4.5-7.5) Urine Specific Menard 1.017 (1.000-1.030) Urine Protein NEG (NEG) Urine Glucose (UA) NEG (NEG) Urine Ketones NEG (NEG) Urine Occult Blood 2+ (NEG) Urine Nitrite NEG (NEG) Urine Bilirubin NEG (NEG) Urine Urobilinogen NEG (NEG) Urine Leukocyte Esterase LARGE (NEG) Urine WBC (Auto) >30 /hpf (0-5) Urine RBC (Auto) >30 /hpf (0-4) Urine Hyaline Casts (Auto) 1-5 /lpf (0-5) Urine Epithelial Cells (Auto) 5-10 /lpf (0-5) Urine Bacteria (Auto) 1+ (NEG) Urine Opiates Screen POS (NEG) Urine Methadone, Qualitative NEG (NEG) Urine Barbiturates NEG (NEG) Urine Phencyclidine (PCP) Level NEG (NEG) Ur Amphetamine/Methamphetamine NEG (NEG) MDMA (Ecstasy) Screen NEG (NEG) Urine Benzodiazepines Screen NEG (NEG) Urine Cocaine Metabolite NEG (NEG) Urine Marijuana (THC) NEG (NEG) Medications Administered Medications (Trade) Dose Ordered Sig/Bj Route Start Time Stop Time Status Last Admin Dose Admin Hydromorphone HCl (Dilaudid Inj) 2 mg NOW STAT IM 02/02/17 20:22 02/02/17 20:25 DC 02/02/17 20:56 2 MG Ketorolac Tromethamine (Toradol Inj) 60 mg NOW STAT IM 02/02/17 20:22 02/02/17 20:25 DC 02/02/17 20:57 60 MG Lidocaine (Lidoderm Patch 5%) 1 patch NOW STAT TD 02/02/17 20:22 02/02/17 20:25 DC 02/02/17 20:56 1 PATCH Benztropine Mesylate (Cogentin Inj) 2 mg NOW STAT IM 02/02/17 21:16 02/02/17 21:17 DC 02/02/17 21:32 2 MG Dextrose (Dextrose 50% 50ML Syringe) 50 ml NOW ONCE IV 02/03/17 02:30 02/03/17 02:31 DC 02/03/17 02:30 50 ML Miscellaneous (Rapid Sequence Induction Bag) 1 ea STK-MED ONCE N/A 02/03/17 05:12 02/03/17 05:13 DC 02/03/17 05:12 1 EA Vecuronium Phoenix (Vecuronium Phoenix Inj) 10 mg NOW STAT IV 02/03/17 05:22 02/03/17 05:24 DC 02/03/17 05:28 10 MG Lorazepam (Ativan Inj) 2 mg NOW STAT IV 02/03/17 05:22 02/03/17 05:24 DC 02/03/17 05:28 2 MG Ceftriaxone Sodium (Rocephin Inj) 1 gm NOW STAT IV 02/03/17 05:34 02/03/17 05:35 DC 02/03/17 05:34 1 GM ED Course 2017: Past medical records reviewed. The patient was evaluated in room B11A. A complete history and physical examination was performed. 2021: Ordered Lidocaine 1 patch TD, Toradol Inj 60 mg IM, Dilaudid Inj 2 mg IM. 2115: Ordered Cogentin Inj 2 mg IM. 2131: Ordered Phenergan Inj 25 mg IM, Dilaudid Inj 1 mg IM. 2220: Upon reexamination the patient is resting comfortably. I discussed results and treatment plan with the patient. He verbalizes agreement and understanding. The patient is ready for discharge. Medical Decision Etiologies such as fracture, dislocation, intra-abdominal, pneumothorax, intrathoracic , intracranial, neurologic, as well as other traumatic pathologies were entertained. This is a 75-year-old male who presents emergency department complaining of right sided neck pain. In addition the patient cannot hold still despite multiple commands. I suspect based on the patient's physical examination as well as his inability to hold still and is most likely suffering from a dystonic drug reaction. He was originally given Dilaudid IM for his pain along with Toradol however this resulted in no cessation of the activity or the pain. At this point the patient was then given Cogentin which resulted in immediate improvement in the patient's symptoms. I suspect based on this that the patient was suffering from extrapyramidal side effects. I suspect this from his Ultram. At this point I recommended a CAT scan of the head and neck however the patient is refusing. The patient was signed out to Dr. Stark at change of shift, with the patient pending a ride home. Medication Reconcilliation Current Medication List: was personally reviewed by me Blood Pressure Screening Patient's blood pressure: Low blood pressure Blood pressure disposition: Did not require urgent referral Impression Primary Impression: Dystonic drug reaction Scribe Attestation The scribe's documentation has been prepared under my direction and personally reviewed by me in its entirety. I confirm that the note above accurately reflects all work, treatment, procedures, and medical decision making performed by me. Departure Information Dispostion Still a Patient Prescriptions Benztropine Mesylate (Cogentin) 1 Mg Tab 1 MG PO BID for 3 Days, #6 TAB Prov: Gaston Payne MD 02/02/17 Referrals Syed Valdivia, D.OMalcolm (PCP) Forms HOME CARE DOCUMENTATION FORM, IMPORTANT VISIT INFORMATION, WORK / SCHOOL INSTRUCTIONS Patient Instructions My [facility] Additional Instructions Stop taking Tramadol Take Cogentin 1 mg twice for 3 days You have been examined and treated today on an emergency basis only. This is not a substitute for, or an effort to provide, complete comprehensive medical care. It is impossible to recognize and treat all injuries or illnesses in a single emergency department visit. It is therefore important that you follow up closely with Dr Valdivia. Call as soon as possible for an appointment. Thank you for your time and consideration. I look forward to speaking with you again soon. Please don't hesitate to call us if you have any questions.
[2017-02-02] MEDS ORDERED: CGN1 PO (22:16)
[2017-02-03] VITALS (12 sets, daily range): BP systolic 127–186; BP diastolic 50–95; PULSE 63–112; TEMP 34.5–36.8; O2SAT 95–100; BMI 43.8
[2017-02-03] MEDS ORDERED: DEXTROSE 50% 50 ML SYR IV ONE (02:30)
[2017-02-03 02:31] LABS: BASO % 0.2 %; BASO ABS # 0.02 K/uL (0-0.2); COMPLETE YES; EOS % 5.4 %; HEMATOCRIT 33.6 % (42-52); IG% 0.5 %; LYMPH % 32.7 %; LYMPH ABS # 2.79 K/uL (1.2-3.4); MEAN CELL VOLUME 76.7 fL (80-100); MEAN CORPUSCULAR HEMOGLOBIN 22.6 pg (25-34); MEAN CORPUSCULAR HGB CONC 29.5 g/dl (32-36); MEAN PLATELET VOLUME 9.5 fL (7.4-10.4); MONO % 7.3 %; NEUT % 53.9 %; PLATELET COUNT 241 K/uL (130-400); RED BLOOD COUNT 4.38 M/uL (4.7-6.1); WHITE BLOOD COUNT 8.53 K/uL (4.8-10.8)
[2017-02-03 02:39] LABS: ARTERIAL BLD GAS O2 SATURATION 95.2 % (90-95); ARTERIAL BLOOD GAS BASE EXCESS 2.6 mEq/L (-9-1.8); ARTERIAL BLOOD GAS HCO3 30 mmol/L (19-24); ARTERIAL BLOOD GAS PO2 96 mm/Hg (80-95); ARTERIAL BLOOD GAS pH 7.29 (7.35-7.45)
[2017-02-03 02:40] LABS: ALLEN TEST POS (POS); O2 ADMINISTRATION 4 L
[2017-02-03 03:00] LABS: PARTIAL THROMBOPLASTIN RATIO 0.9; PROTHROMBIN TIME (PATIENT) 10.4 SECONDS (9.0-12.0)
[2017-02-03 03:06] LABS: ALKALINE PHOSPHATASE 98 U/L (45-117); ALT/SGPT 25 U/L (12-78); AST/SGOT 42 U/L (15-37); BLOOD UREA NITROGEN 17 mg/dl (7-18); BUN/CREATININE RATIO 11.9 (10-20); CALCIUM 8.3 mg/dl (8.5-10.1); CARBON DIOXIDE 28 mmol/L (21-32); CHLORIDE 105 mmol/L (98-107); CKMB/CK RATIO 2.2 (0-3.0); GLUCOSE 53 mg/dl (70-99); POTASSIUM 4.2 mmol/L (3.5-5.1); SODIUM 141 mmol/L (136-145)
[2017-02-03 03:48] LABS: URINE APPEARANCE CLOUDY (CLEAR); URINE BILIRUBIN NEG (NEG); URINE COLOR DK YELLOW; URINE NITRITE NEG (NEG); URINE PH 7.5 (4.5-7.5); URINE SPECIFIC GRAVITY 1.017 (1.000-1.030); UROBILINOGEN NEG (NEG); ZZURINE CULT IF INDIC CATH YES
[2017-02-03 03:58] LABS: MANUAL MICROSCOPIC REQUIRED? NO; REVIEW REQ? NO
[2017-02-03 04:07] LABS: BENZODIAZEPINE, URINE NEG (NEG); COCAINE,URINE NEG (NEG); PHENCYCLIDINE, URINE NEG (NEG)
[2017-02-03 04:57] LABS: ARTERIAL BLD GAS O2 SATURATION 94.8 % (90-95); ARTERIAL BLOOD GAS HCO3 31 mmol/L (19-24); ARTERIAL BLOOD GAS PO2 92 mm/Hg (80-95); ARTERIAL BLOOD GAS pH 7.31 (7.35-7.45)
[2017-02-03 04:58] LABS: ALLEN TEST POS (POS); O2 ADMINISTRATION 30% BIPAP
[2017-02-03] MEDS ORDERED: RAPID SEQUENCE INDUCTION BAG ONE (05:12)
[2017-02-03] MEDS ORDERED: VECURONIUM BROMIDE 10 MG VIAL IV STA (05:22)
[2017-02-03] MEDS ORDERED: LORAZEPAM 2 MG/ML 1 ML VIAL IV STA (05:22)
[2017-02-03] MEDS ORDERED: CEFTRIAXONE SOD INJ 1 GM ADDVIAL IV STA (05:34)
--- NOTE | 2017-02-03 06:07 | History and Physical ---
History & Physical Date & Time of Service: Feb 03, 2017 at 06:07 . Chief Complaint: Neck Pain . Primary Care Physician: Syed Valdivia D.OMalcolm . History of Present Illness Source: clinic records, hospital records 75 YO male followed by Dr. Syed Valdivia for Family Medicine. History of sleep apnea, obesity hypoventilation syndrome, diabetes, and other problems noted below. Presented to ED last evening complaining of neck pain. He had fallen a few days prior. Initially received IV ketorolac for pain without much benefit. Subsequently received hydromorphone 2 mg IM. Received a dose of Cogentin for possible dystonic reaction. Received a second dose of hydromorphone [address] head and cervical spine attempted, but could not be performed and patient declined further attempts. Arrangements were made for discharge to home and transportation was requested. Patient found to be somnolent and confused around 02:00. He was shouting and restless. Blood sugars was 55; glucose was administered without improvement of mental status. ABG demonstrated hypercapnia with pCO2 of 64. Placed on BiPAP without improvement of ABG or mental status. He was intubated; received etomidate and vecuronium for intubation. Unresponsive at time of my assessment around 06:00. . Past Medical/Surgical History Chronic and Resolved Medical Problems: (1) Anxiety Status: Chronic (2) Asthma, cough variant Status: Chronic (3) Benign prostatic hyperplasia Status: Chronic (4) Depression Status: Chronic (5) Diabetes mellitus type 2 Status: Chronic (6) Diabetic neuropathy Status: Chronic (7) Diabetic peripheral neuropathy associated with type 2 diabetes mellitus Status: Chronic (8) Diastolic heart failure Status: Chronic (9) Dyslipidemia Status: Chronic (10) Essential hypertension Status: Chronic (11) Gastroesophageal reflux disease Status: Chronic (12) Legal blindness Status: Chronic (13) Morbid obesity Permanent Comment: BMI > 40 Status: Chronic (14) Nocturnal hypoxemia Status: Chronic (15) Obesity hypoventilation syndrome Status: Chronic (16) Peripheral venous insufficiency Status: Chronic (17) Sleep apnea Permanent Comment: noncompliant with CPAP Status: Chronic Surgical Problems: (1) S/P cataract surgery Status: Chronic (2) S/P colonoscopy Permanent Comment: 11/15 hyperplastic polyp--repeat 10 years Status: Chronic (3) S/p eyelid surgery Status: Chronic (4) S/P foot surgery, left Status: Chronic (5) S/P panniculectomy Status: Chronic (6) S/P tonsillectomy Status: Chronic . Family History MOTHER Diabetes mellitus Hypertension FH: CHF (congestive heart failure) BROTHER Diabetes mellitus FH: CHF (congestive heart failure) GRANDMOTHER Diabetes mellitus FATHER FH: CAD (coronary artery disease) (CABG) Relation not specified for: GI disorder Social History Smoking Status: Never Smoker Drug Use: none Marital Status: Housing status: assisted Occupational Status: retired Immunizations History of Influenza Vaccine: Yes History of Tetanus Vaccine?: Yes Tetanus Immunization Date: Nov 17, 2006 History of Pneumococcal: Yes History of Hepatitis B Vaccine: Unknown Multi-Drug Resistant Organisms History of MDRO: Yes Type of MDRO: VRE, MRSA Allergies Coded Allergies: Oxycodone (Verified Adverse Reaction, Unknown, Trouble coming off, 02/03/17 ) Repoted by , NOT ALLERGIC TO THEM Propoxyphene (Verified Adverse Reaction, Unknown, Trouble coming off of Darvocet., 02/03/17) Reported by Home Medications Scheduled Aspirin (Aspirin Ec), 81 MG PO DAILY Benztropine Mesylate (Cogentin), 1 MG PO BID Finasteride (Proscar), 5 MG PO QAM Folic Acid (Folic Acid), 400 MCG PO QAM Furosemide (Lasix), 2 TAB PO BID Gabapentin (Neurontin), 600 MG PO QID Insulin Aspart (Novolog Flexpen), 8 UNITS SC QAM Insulin Aspart (Novolog Flexpen), 12 UNITS SC BID Insulin Glargine (Lantus Solostar), 35 SC QPM Metolazone (Zaroxolyn), 5 MG PO 2XWK Metoprolol Tartrate (Lopressor) (Lopressor), 12.5 MG PO BID Multivitamin (Multivitamin), 1 TAB PO DAILY Nystatin (Topical) (Nyata), 1 APPL TOP TID Nystatin-Triamcinolone (Nystatin/Triamcinolone), 1 APPLN TOP BID Ocuvite Preservision (Ocuvite Preservision), 1 TAB PO DAILY Omeprazole (Prilosec), 20 MG PO QAM Potassium Ext Rel (Klor-Con), 40 MEQ PO BID Simvastatin (Zocor), 40 MG PO HS Tamsulosin HCl (Tamsulosin HCl), 1 CAP PO HS Venlafaxine Hcl (Effexor), 75 MG PO BID Scheduled PRN Tramadol (Ultram), 50 MG PO Q12H PRN for Pain Review of Systems Unable to obtain due to neuro status. . Physical Exam Vital Signs Date Time Temp Pulse Resp B/P (MAP) Pulse Ox O2 Delivery O2 Flow Rate FiO2 02/03/17 05:41 47 02/03/17 05:35 100 02/03/17 05:25 30 02/03/17 04:33 36.4 02/03/17 03:34 67 100 30 02/03/17 03:31 135/67 02/03/17 03:30 68 22 92 Nasal Cannula 2.0 02/03/17 03:18 97 Nasal Cannula 2.0 02/03/17 02:31 124/64 02/03/17 02:30 72 18 99 Nasal Cannula 4.0 02/03/17 02:23 146/67 02/03/17 02:22 74 02/03/17 01:05 82 18 133/76 92 Free Flow/Blowby 4.0 02/02/17 23:00 83 18 126/88 94 02/02/17 20:01 36.6 75 18 117/45 90 Room Air General Appearance: + obese, + pertinent finding (unresponsive on vent) Head: normocephalic, atraumatic Eyes: PERRL, EOMI, sclerae normal (conjunctive pink) ENT: + pertinent finding (oral ET tube) Respiratory/Chest: lungs clear, no respiratory distress ((paralyzed on vent)) Cardiovascular: regular rate, rhythm, no murmur, + JVD, + abnormal peripheral pulses (pedal pulses dimished), + pertinent finding (1+ pretibial and pedal edema) Abdomen/GI: normal bowel sounds, non tender, soft, no organomegaly (exam limited), no pulsatile mass, + pertinent finding (obese) Genitourinary - Male: + pertinent finding (Osorio cath) Extremities/Musculoskelatal: no calf tenderness, + pedal edema Neurologic/Psych: + pertinent finding (paralyzed; pupils 2 mm; no spontaneous movements; no response to voice or noxious stimuli; plantar reflexes downgoing) Skin: normal color, warm/dry, + pertinent finding (shallow ulcers medial right great toe and medial right 2nd toe) Lymphatic: no adenopathy (cervical) Diagnostics Laboratory Results Results Past 24 Hours Test 02/03/17 02:11 02/03/17 02:24 02/03/17 02:33 02/03/17 02:54 Range/Units Bedside Glucose 55 86 70-99 mg/dl White Blood Count 8.53 4.8-10.8 K/uL Red Blood Count 4.38 4.7-6.1 M/uL Hemoglobin 9.9 14.0-18.0 g/dL Hematocrit 33.6 42-52 % Mean Corpuscular Volume 76.7 80-100 fL Mean Corpuscular Hemoglobin 22.6 25-34 pg Mean Corpuscular Hemoglobin Concent 29.5 32-36 g/dl Platelet Count 241 130-400 K/uL Mean Platelet Volume 9.5 7.4-10.4 fL Neutrophils (%) (Auto) 53.9 % Lymphocytes (%) (Auto) 32.7 % Monocytes (%) (Auto) 7.3 % Eosinophils (%) (Auto) 5.4 % Basophils (%) (Auto) 0.2 % Neutrophils # (Auto) 4.60 1.4-6.5 K/uL Lymphocytes # (Auto) 2.79 1.2-3.4 K/uL Monocytes # (Auto) 0.62 0.11-0.59 K/uL Eosinophils # (Auto) 0.46 0-0.5 K/uL Basophils # (Auto) 0.02 0-0.2 K/uL RDW Standard Deviation 50.7 36.4-46.3 fL RDW Coefficient of Variation 18.0 11.5-14.5 % Immature Granulocyte % (Auto) 0.5 % Immature Granulocyte # (Auto) 0.04 0.00-0.02 K/uL Prothrombin Time 10.4 9.0-12.0 SECONDS Prothromb Time International Ratio 1.0 0.9-1.1 Activated Partial Thromboplast Time 22.2 21.0-31.0 SECONDS Partial Thromboplastin Ratio 0.9 Sodium Level 141 136-145 mmol/L Potassium Level 4.2 3.5-5.1 mmol/L Chloride Level 105 98-107 mmol/L Carbon Dioxide Level 28 21-32 mmol/L Anion Gap 8.0 3-11 mmol/L Blood Urea Nitrogen 17 7-18 mg/dl Creatinine 1.40 0.60-1.40 mg/dl Estimated GFR () 56.6 Estimated GFR (Non- 48.8 BUN/Creatinine Ratio 11.9 10-20 Random Glucose 53 70-99 mg/dl Calcium Level 8.3 8.5-10.1 mg/dl Total Bilirubin 0.3 0.2-1 mg/dl Direct Bilirubin 0-0.2 mg/dl Aspartate Amino Transf (AST/SGOT) 42 15-37 U/L Alanine Aminotransferase (ALT/SGPT) 25 12-78 U/L Alkaline Phosphatase 98 45-117 U/L Ammonia 28.0 11-32 umol/L Total Creatine Kinase 258 39-308 U/L Creatine Kinase MB 5.6 0.5-3.6 ng/ml Creatine Kinase MB Ratio 2.2 0-3.0 Troponin I < 0.015 0-0.045 ng/ml Total Protein 7.3 6.4-8.2 gm/dl Albumin 2.8 3.4-5.0 gm/dl Lipase 58 73-393 U/L Thyroid Stimulating Hormone (TSH) 2.090 0.300-4.500 uIu/ml Chemistry Specimen Hemolysis Arterial Blood pH 7.29 7.35-7.45 Arterial Blood Partial Pressure CO2 64 35-46 mmHg Arterial Blood Partial Pressure O2 96 80-95 mm/Hg Arterial Blood HCO3 30 19-24 mmol/L Arterial Blood Oxygen Saturation 95.2 90-95 % Arterial Blood Base Excess 2.6 -9-1.8 mEq/L Arterial Blood Gas Delivery 4 L Khoa Test POS POS Test 02/03/17 02:55 02/03/17 03:24 02/03/17 03:48 02/03/17 04:49 Range/Units Urine Color DK YELLOW Urine Appearance CLOUDY CLEAR Urine pH 7.5 4.5-7.5 Urine Specific [place] 1.017 1.000-1.030 Urine Protein NEG NEG Urine Glucose (UA) NEG NEG Urine Ketones NEG NEG Urine Occult Blood 2+ NEG Urine Nitrite NEG NEG Urine Bilirubin NEG NEG Urine Urobilinogen NEG NEG Urine Leukocyte Esterase LARGE NEG Urine WBC (Auto) >30 0-5 /hpf Urine RBC (Auto) >30 0-4 /hpf Urine Hyaline Casts (Auto) 1-5 0-5 /lpf Urine Epithelial Cells (Auto) 5-10 0-5 /lpf Urine Bacteria (Auto) 1+ NEG Urine Opiates Screen POS NEG Urine Methadone, Qualitative NEG NEG Urine Barbiturates NEG NEG Urine Phencyclidine (PCP) Level NEG NEG Ur Amphetamine/Methamphetamine NEG NEG MDMA (Ecstasy) Screen NEG NEG Urine Benzodiazepines Screen NEG NEG Urine Cocaine Metabolite NEG NEG Urine Marijuana (THC) NEG NEG Bedside Glucose 91 70-99 mg/dl Arterial Blood pH 7.31 7.35-7.45 Arterial Blood Partial Pressure CO2 64 35-46 mmHg Arterial Blood Partial Pressure O2 92 80-95 mm/Hg Arterial Blood HCO3 31 19-24 mmol/L Arterial Blood Oxygen Saturation 94.8 90-95 % Arterial Blood Base Excess 4.0 -9-1.8 mEq/L Arterial Blood Gas Delivery 30% BIPAP Khoa Test POS POS Test 02/03/17 05:47 Range/Units Bedside Glucose 80 70-99 mg/dl Microbiology Results 02/03/17 Urine Culture, Received Pending Diagnostic Radiology CHEST ONE VIEW PORTABLE FINDINGS: Cardiomegaly. Congestive heart failure. Diaphragms smooth. Slight blunting left lateral costophrenic angle. IMPRESSION: Congestive heart failure The above report was generated using voice recognition software. It may contain grammatical, syntax or spelling errors. Electronically signed by: Madhu Aguilar M.D. 02/03/2017 6:15 AM Dictated Date/Time: 02/03/2017 6:14 AM HEAD WITHOUT CONTRAST (CT) Findings: The paranasal sinuses and mastoid air cells are clear. Mild cerebellar as well as cerebral atrophy. Mild chronic small vessel change of aging. No acute intracranial hemorrhage. The ventricular system is midline. Impression: Age-related change. No acute process. The above report was generated using voice recognition software. It may contain grammatical, syntax or spelling errors. Electronically signed by: Madhu Aguilar M.D. 02/03/2017 6:49 AM Dictated Date/Time: 02/03/2017 6:49 AM CHEST ONE VIEW PORTABLE CLINICAL HISTORY: s/p intubation tube position COMPARISON STUDY: 02/03/2017 FINDINGS: Placement of an endotracheal tube 3 cm above the tanisha. Findings of congestive failure similar. IMPRESSION: Endotracheal tube positioned 3 cm above the tanisha. Unchanged findings of congestive failure. The above report was generated using voice recognition software. It may contain grammatical, syntax or spelling errors. Electronically signed by: Madhu Aguilar M.D. 02/03/2017 6:36 AM Dictated Date/Time: 02/03/2017 6:36 AM CERVICAL SPINE W/O FINDINGS: Significant degenerative disc change throughout the entire cervical region. No evidence for an acute compression deformity. Degenerative changes C1-C2 complex. Endotracheal tube in position. Mild prevertebral soft tissue edematous change with a trace amount of soft tissue air possibly on the basis of a traumatic intubation. IMPRESSION: Severe degenerative change. No acute bony abnormality. Endotracheal tube within the trachea The above report was generated using voice recognition software. It may contain grammatical, syntax or spelling errors. Electronically signed by: Madhu Aguilar M.D. 02/03/2017 7:21 AM Dictated Date/Time: 02/03/2017 7:17 AM . EKG EKG performed at 02:49 reviewed and demonstrated NSR at 74 / minute, low voltage QRS, no acute changes. . Impression Assessment and Plan ALTERED MENTAL STATUS Suspect multifactorial etiologies- medications, hypoglycemia, hypercapnia. Head CT negative for acute findings. Monitor neuro status. ACUTE ON CHRONIC HYPERCAPNIC RESPIRATORY FAILURE Underlying sleep apnea + obesity hypoventilation syndrome. Intolerant of CPAP and BiPAP. Intubated in ED. Management per CCM- wean as tolerated. CHF Chest films difficult to interpret due to obesity, but read by Radiology as CHF. Echo 02/18/16 demonstrated LVEF 55-60%, no wall motion abnormalities. Probable acute on chronic left ventricular diastolic heart failure. Diurese as necessary. DIABETES MELLITUS TYPE 2 DM type 2 on insulin therapy. Hypoglycemic in ED. Management of DM per protocol. UTI UA shows WBC's and bacteria. Urine culture sent. Received IV ceftriaxone in ED. Change Rx to piperacillin / tazobactam. Check lactate and procalcitonin. NECK PAIN CT cervical spine demonstrated severe degenerative changes, no fracture or dislocation. VTE PROPHYLAXIS SCD's. Consider prophylactic anticoagulation if no invasive procedures are deemed necessary. GI PROPHYLAXIS PPI. RESUSCITATION STATUS Full code. DISPOSITION Admit to ICU. Discharge disposition to be determined. Family Medicine follow-up with Dr. Syed Valdivia. Spouse given update by phone. . VTE Prophylaxis Given or contraindicated: SCD's Note Total Time: Critical Care 30 - 74 minutes (45 min )
--- NOTE | 2017-02-03 06:16 | DIAGNOSTIC IMAGING REPORT ---
CHEST ONE VIEW PORTABLE CLINICAL HISTORY: Evaluate Fever/Sepsis COMPARISON STUDY: 08/14/2016 FINDINGS: Cardiomegaly. Congestive heart failure. Diaphragms smooth. Slight blunting left lateral costophrenic angle. IMPRESSION: Congestive heart failure The above report was generated using voice recognition software. It may contain grammatical, syntax or spelling errors. Electronically signed by: Madhu Aguilar M.D. 02/03/2017 6:15 AM Dictated Date/Time: 02/03/2017 6:14 AM
--- NOTE | 2017-02-03 06:38 | DIAGNOSTIC IMAGING REPORT ---
CHEST ONE VIEW PORTABLE CLINICAL HISTORY: s/p intubation tube position COMPARISON STUDY: 02/03/2017 FINDINGS: Placement of an endotracheal tube 3 cm above the tanisha. Findings of congestive failure similar. IMPRESSION: Endotracheal tube positioned 3 cm above the tanisha. Unchanged findings of congestive failure. The above report was generated using voice recognition software. It may contain grammatical, syntax or spelling errors. Electronically signed by: Madhu Aguilar M.D. 02/03/2017 6:36 AM Dictated Date/Time: 02/03/2017 6:36 AM
--- NOTE | 2017-02-03 06:51 | DIAGNOSTIC IMAGING REPORT ---
HEAD WITHOUT CONTRAST (CT) CT DOSE: 767.83 mGy.cm HISTORY: Mental status change Evaluate Fever/Sepsis TECHNIQUE: Multiaxial CT images of the head were performed without the use of intravenous contrast. A dose lowering technique was utilized adhering to the principles of ALARA. Comparison: 02/17/2016 Findings: The paranasal sinuses and mastoid air cells are clear. Mild cerebellar as well as cerebral atrophy. Mild chronic small vessel change of aging. No acute intracranial hemorrhage. The ventricular system is midline. Impression: Age-related change. No acute process. The above report was generated using voice recognition software. It may contain grammatical, syntax or spelling errors. Electronically signed by: Madhu Aguilar M.D. 02/03/2017 6:49 AM Dictated Date/Time: 02/03/2017 6:49 AM
[2017-02-03 06:54] LABS: ARTERIAL BLD GAS O2 SATURATION 97.5 % (90-95); ARTERIAL BLOOD GAS BASE EXCESS 4.2 mEq/L (-9-1.8); ARTERIAL BLOOD GAS HCO3 28 mmol/L (19-24); ARTERIAL BLOOD GAS PO2 105 mm/Hg (80-95); ARTERIAL BLOOD GAS pH 7.47 (7.35-7.45)
[2017-02-03 06:57] LABS: ALLEN TEST POS (POS); O2 ADMINISTRATION 30%
[2017-02-03 07:12] LABS: MAGNESIUM 2.3 mg/dl (1.8-2.4)
--- NOTE | 2017-02-03 07:12 | EMERGENCY ROOM VISIT NOTE ---
History Report prepared by Tr: Miriam Waters Under the Supervision of: Dr. Gaston Stark D.O. First contact with patient: 02:15 Chief Complaint: NECK PAIN Stated Complaint: NECK PAIN History of Present Illness The patient is a 75 year old male who presents to the Emergency Room with AMS. The patient was awaiting and was transported back home when the nurse brought the patient to my attention. The patient is agitated and not responding. He is thrashing about in bed periodically without appropriate responds to verbal stimuli. He thrashes in bed with painful stimuli. BSG by nursing staff was 55. The history is limited due to the patient's AMS. Source of History: nursing staff History Limited By: AMS Onset: several hours ago Position: other (global) Quality: other (AMS) Timing: other (persistent) Note: Pt is unresponsive, thrashing around, BSG of 55. Review of Systems Unobtainable due to AMS. Past Medical & Surgical Medical Problems: (1) Altered mental status (2) Anxiety (3) Asthma, cough variant (4) Benign prostatic hyperplasia (5) Depression (6) Diabetes mellitus type 2 (7) Diabetic neuropathy (8) Diabetic peripheral neuropathy associated with type 2 diabetes mellitus (9) Diastolic heart failure (10) Dyslipidemia (11) Essential hypertension (12) Gastroesophageal reflux disease (13) Hypoxia (14) Legal blindness (15) Loss of sensation (16) Morbid obesity (17) Nocturnal hypoxemia (18) Peripheral venous insufficiency (19) Pre-ulcerative corn or callous (20) Respiratory failure (21) Sleep apnea (22) UTI (urinary tract infection) Surgical Problems: (1) S/P cataract surgery (2) S/P colonoscopy (3) S/p eyelid surgery (4) S/P foot surgery, left (5) S/P panniculectomy (6) S/P tonsillectomy Family History Diabetes mellitus MOTHER BROTHER GRANDMOTHER FH: CAD (coronary artery disease) FATHER (CABG) FH: CHF (congestive heart failure) MOTHER BROTHER GI disorder Hypertension MOTHER Social History Smoking Status: Never Smoker Alcohol Use: none Drug Use: none Marital Status: Housing Status: lives with family Occupation Status: retired Current/Historical Medications Scheduled Aspirin (Aspirin Ec), 81 MG PO DAILY Benztropine Mesylate (Cogentin), 1 MG PO BID Finasteride (Proscar), 5 MG PO QAM Folic Acid (Folic Acid), 400 MCG PO QAM Furosemide (Lasix), 2 TAB PO BID Gabapentin (Neurontin), 600 MG PO QID Insulin Aspart (Novolog Flexpen), 8 UNITS SC QAM Insulin Aspart (Novolog Flexpen), 12 UNITS SC BID Insulin Glargine (Lantus Solostar), 35 SC QPM Metolazone (Zaroxolyn), 5 MG PO 2XWK Metoprolol Tartrate (Lopressor) (Lopressor), 12.5 MG PO BID Multivitamin (Multivitamin), 1 TAB PO DAILY Nystatin (Topical) (Nyata), 1 APPL TOP TID Nystatin-Triamcinolone (Nystatin/Triamcinolone), 1 APPLN TOP BID Ocuvite Preservision (Ocuvite Preservision), 1 TAB PO DAILY Omeprazole (Prilosec), 20 MG PO QAM Potassium Ext Rel (Klor-Con), 40 MEQ PO BID Simvastatin (Zocor), 40 MG PO HS Tamsulosin HCl (Tamsulosin HCl), 1 CAP PO HS Venlafaxine Hcl (Effexor), 75 MG PO BID Scheduled PRN Tramadol (Ultram), 50 MG PO Q12H PRN for Pain Allergies Coded Allergies: Oxycodone (Verified Adverse Reaction, Unknown, Trouble coming off, 02/03/17 ) Repoted by , NOT ALLERGIC TO THEM Propoxyphene (Verified Adverse Reaction, Unknown, Trouble coming off of Darvocet., 02/03/17) Reported by Physical Exam Vital Signs Date Time Temp Pulse Resp B/P (MAP) Pulse Ox O2 Delivery O2 Flow Rate FiO2 02/03/17 06:06 71 20 100 Mechanical Ventilator 02/03/17 06:02 174/83 02/03/17 05:41 47 02/03/17 05:36 67 20 100 Mechanical Ventilator 02/03/17 05:35 100 02/03/17 05:31 145/92 02/03/17 05:25 30 02/03/17 05:10 161/80 02/03/17 05:01 123/58 02/03/17 04:36 64 10 96 02/03/17 04:33 36.4 02/03/17 04:31 134/85 02/03/17 04:06 65 15 99 BiPAP 02/03/17 04:01 119/59 02/03/17 03:36 67 12 100 BiPAP 02/03/17 03:34 67 100 30 02/03/17 03:31 135/67 02/03/17 03:30 68 22 92 Nasal Cannula 2.0 02/03/17 03:18 97 Nasal Cannula 2.0 02/03/17 02:31 124/64 02/03/17 02:30 72 18 99 Nasal Cannula 4.0 02/03/17 02:23 146/67 02/03/17 02:22 74 02/03/17 01:05 82 18 133/76 92 Free Flow/[place] 4.0 02/02/17 23:00 83 18 126/88 94 02/02/17 20:01 36.6 75 18 117/45 90 Room Air Physical Exam CONSTITUTIONAL/VITAL SIGNS: Reviewed / noted above. GENERAL: Non-toxic in appearance. INTEGUMENTARY: Warm, dry, and [place]. HEAD: Normocephalic. EYES: without scleral icterus or trauma. ENT/OROPHARYNX: clear and moist. LYMPHADENOPATHY/NECK: Is supple without lymphadenopathy or meningismus. RESPIRATORY: Lungs clear and equal. CARDIOVASCULAR: Regular rate and rhythm. GI/ABDOMEN: Soft and nontender. No organomegaly or pulsatile mass. No rebound or guarding. Normal bowel sounds. EXTREMITIES: Warm and well perfused. BACK: No CVA tenderness. NEUROLOGICAL: Does not respond to verbal stimuli. Thrashes about on the bed with painful stimuli, but his responses are not appropriate. Moves all 4 extremities. Does not verbalize any comprehensible words. Does not follow commands. PSYCHIATRIC: normal affect. MUSCULOSKELETAL: Normally developed with good muscle tone. Medical Decision & Procedures ER Provider Diagnostic Interpretation: X ray results and stated below per my interpretation and radiology review. Radiology results as stated below per my review and [facility] radiologist interpretation: Chest X-ray: Poor technique, no obvious infiltrate or pneumothorax. CT head: Compared with 02/17/16 No acute intracranial abnormality. No skull fracture. Stable senescent changes. Visualized paranasal sinuses and mastoid air cells are clear. Chest X-ray post intubation: Endotracheal tube 3cm above the tanisha. No acute pulmonary process. Laboratory Results 02/03/17 02:24 Red Blood Count 4.38, Mean Corpuscular Volume 76.7, Mean Corpuscular Hemoglobin 22.6, Mean Corpuscular Hemoglobin Concent 29.5, Mean Platelet Volume 9.5, Neutrophils (%) (Auto) 53.9, Lymphocytes (%) (Auto) 32.7, Monocytes (%) (Auto) 7.3, Eosinophils (%) (Auto) 5.4, Basophils (%) (Auto) 0.2, Neutrophils # (Auto) 4.60, Lymphocytes # (Auto) 2.79, Monocytes # (Auto) 0.62, Eosinophils # (Auto) 0.46, Basophils # (Auto) 0.02 02/03/17 02:24 Test 02/03/17 02:24 02/03/17 02:55 02/03/17 03:24 02/03/17 05:47 White Blood Count 8.53 K/uL (4.8-10.8) Red Blood Count 4.38 M/uL (4.7-6.1) Hemoglobin 9.9 g/dL (14.0-18.0) Hematocrit 33.6 % (42-52) Mean Corpuscular Volume 76.7 fL (80-100) Mean Corpuscular Hemoglobin 22.6 pg (25-34) Mean Corpuscular Hemoglobin Concent 29.5 g/dl (32-36) Platelet Count 241 K/uL (130-400) Mean Platelet Volume 9.5 fL (7.4-10.4) Neutrophils (%) (Auto) 53.9 % Lymphocytes (%) (Auto) 32.7 % Monocytes (%) (Auto) 7.3 % Eosinophils (%) (Auto) 5.4 % Basophils (%) (Auto) 0.2 % Neutrophils # (Auto) 4.60 K/uL (1.4-6.5) Lymphocytes # (Auto) 2.79 K/uL (1.2-3.4) Monocytes # (Auto) 0.62 K/uL (0.11-0.59) Eosinophils # (Auto) 0.46 K/uL (0-0.5) Basophils # (Auto) 0.02 K/uL (0-0.2) RDW Standard Deviation 50.7 fL (36.4-46.3) RDW Coefficient of Variation 18.0 % (11.5-14.5) Immature Granulocyte % (Auto) 0.5 % Immature Granulocyte # (Auto) 0.04 K/uL (0.00-0.02) Prothrombin Time 10.4 SECONDS (9.0-12.0) Prothromb Time International Ratio 1.0 (0.9-1.1) Activated Partial Thromboplast Time 22.2 SECONDS (21.0-31.0) Partial Thromboplastin Ratio 0.9 Anion Gap 8.0 mmol/L (3-11) Estimated GFR () 56.6 Estimated GFR (Non- 48.8 BUN/Creatinine Ratio 11.9 (10-20) Calcium Level 8.3 mg/dl (8.5-10.1) Total Bilirubin 0.3 mg/dl (0.2-1) Direct Bilirubin mg/dl (0-0.2) Aspartate Amino Transf (AST/SGOT) 42 U/L (15-37) Alanine Aminotransferase (ALT/SGPT) 25 U/L (12-78) Alkaline Phosphatase 98 U/L (45-117) Ammonia 28.0 umol/L (11-32) Total Creatine Kinase 258 U/L (39-308) Creatine Kinase MB 5.6 ng/ml (0.5-3.6) Creatine Kinase MB Ratio 2.2 (0-3.0) Total Protein 7.3 gm/dl (6.4-8.2) Albumin 2.8 gm/dl (3.4-5.0) Lipase 58 U/L (73-393) Thyroid Stimulating Hormone (TSH) 2.090 uIu/ml (0.300-4.500) Chemistry Specimen Hemolysis Urine Color DK YELLOW Urine Appearance CLOUDY (CLEAR) Urine pH 7.5 (4.5-7.5) Urine Specific [place] 1.017 (1.000-1.030) Urine Protein NEG (NEG) Urine Glucose (UA) NEG (NEG) Urine Ketones NEG (NEG) Urine Occult Blood 2+ (NEG) Urine Nitrite NEG (NEG) Urine Bilirubin NEG (NEG) Urine Urobilinogen NEG (NEG) Urine Leukocyte Esterase LARGE (NEG) Urine WBC (Auto) >30 /hpf (0-5) Urine RBC (Auto) >30 /hpf (0-4) Urine Hyaline Casts (Auto) 1-5 /lpf (0-5) Urine Epithelial Cells (Auto) 5-10 /lpf (0-5) Urine Bacteria (Auto) 1+ (NEG) Urine Opiates Screen POS (NEG) Urine Methadone, Qualitative NEG (NEG) Urine Barbiturates NEG (NEG) Urine Phencyclidine (PCP) Level NEG (NEG) Ur Amphetamine/Methamphetamine NEG (NEG) MDMA (Ecstasy) Screen NEG (NEG) Urine Benzodiazepines Screen NEG (NEG) Urine Cocaine Metabolite NEG (NEG) Urine Marijuana (THC) NEG (NEG) Bedside Glucose 80 mg/dl (70-99) Test 02/03/17 06:38 Arterial Blood pH 7.47 (7.35-7.45) Arterial Blood Partial Pressure CO2 40 mmHg (35-46) Arterial Blood Partial Pressure O2 105 mm/Hg (80-95) Arterial Blood HCO3 28 mmol/L (19-24) Arterial Blood Oxygen Saturation 97.5 % (90-95) Arterial Blood Base Excess 4.2 mEq/L (-9-1.8) Arterial Blood Gas Delivery 30% Khoa Test POS (POS) Laboratory results as stated above per my review. Medications Administered Medications (Trade) Dose Ordered Sig/Bj Route Start Time Stop Time Status Last Admin Dose Admin Hydromorphone HCl (Dilaudid Inj) 2 mg NOW STAT IM 02/02/17 20:22 02/02/17 20:25 DC 02/02/17 20:56 2 MG Ketorolac Tromethamine (Toradol Inj) 60 mg NOW STAT IM 02/02/17 20:22 02/02/17 20:25 DC 02/02/17 20:57 60 MG Lidocaine (Lidoderm Patch 5%) 1 patch NOW STAT TD 02/02/17 20:22 02/02/17 20:25 DC 02/02/17 20:56 1 PATCH Benztropine Mesylate (Cogentin Inj) 2 mg NOW STAT IM 02/02/17 21:16 02/02/17 21:17 DC 02/02/17 21:32 2 MG Dextrose (Dextrose 50% 50ML Syringe) 50 ml NOW ONCE IV 02/03/17 02:30 02/03/17 02:31 DC 02/03/17 02:30 50 ML Miscellaneous (Rapid Sequence Induction Bag) 1 ea STK-MED ONCE N/A 02/03/17 05:12 02/03/17 05:13 DC 02/03/17 05:12 1 EA Vecuronium [place] (Vecuronium [place] Inj) 10 mg NOW STAT IV 02/03/17 05:22 02/03/17 05:24 DC 02/03/17 05:28 10 MG Lorazepam (Ativan Inj) 2 mg NOW STAT IV 02/03/17 05:22 02/03/17 05:24 DC 02/03/17 05:28 2 MG Ceftriaxone Sodium (Rocephin Inj) 1 gm NOW STAT IV 02/03/17 05:34 02/03/17 05:35 DC 02/03/17 05:34 1 GM Procedure Endotracheal Intubation Indication respiratory failure. The patient was on 100% oxygen via NRB prior to the procedure. Suction, airway equipment, RSI drugs, respiratory equipment, and appropriate personnel were prepared prior to the initiation of the procedure. A time out was taken. Induction was performed with etomidate 20 mg. After observing the clinical benefit of the medications, the airway was easily visualized utilizing a GlideScope number 4 blade. A 8.0 size ETT tube was placed atraumatically to 22 cm using standard technique. The cuff inflated without signs of malfunction. There were bilateral breath sounds, positive colormetric change, no gastric sounds, a good capnography waveform, and post procedure pulse oximetry was 100% . Post intubation sedation and paralysis was administered using Ativan 2 mg IV and vecuronium 10 mg IV. There were no complications. ECG Indication: altered mental status Rate (beats per minute): 74 Rhythm: sinus rhythm Findings: no ectopy, other (no acute injury) ED Course 0214: Previous medical records were reviewed. The patient was evaluated in room B11A. A complete history and physical examination was performed. 0230: Dextrose 50 ml IV. 0508: The patient was intubated according to the procedure note above. 0512: Rapid Sequence Induction Bag 1 ea. 0522: Lorazepam 2 mg IV, Vecuronium [place] 10 mg IV. 0534: Rocephin Inj 1 gm IV. 0540: I discussed the patient's case with Dr. Suero, [facility] hospitalist. The patient will be evaluated for further treatment and disposition. Medical Decision Differential includes acute cardiac dysrhythmia, microinfarction, CVA, TIA, dehydration, anemia, electrolyte disturbance, seizure, trauma, intracranial bleeding, acute vascular catastrophe, thoracic aortic dissection, PE, abdominal aortic aneurysm rupture, infection, hypoglycemia, overdose, trauma. This is a 75-year-old male who presents to the ED with a chief complaint of neck pain. The patient was initially evaluated by another physician and subsequently discharged and awaiting a ride back to his home. When the transport van arrived, the patient was difficult to arouse and the patient was brought to my attention. A BSG was 55. One amp of dextrose did not improve the patient's mental status and brought the blood sugar into the 80-90 range. The patient was evaluated by myself. He was found to have no response to verbal stimuli and does not follow commands. The patient had response to mechanical stimulus and pain by thrashing about and moving in the bed. He was noticed to move all 4 extremities. Review the patient's chart reveals that the patient received Cogentin and Dilaudid for his neck pain. This was many hours prior to my involvement of the patient. The patient is morbidly obese and reportedly uses CPAP at home. He does not appear to be in any significant distress and appeared to be resting comfortably when not bothered. Per the nursing had taken care of the patient earlier, the patient was conversant at that time. A CT scan of the cervical spine have been ordered but the patient refused the CT scan. The patient reportedly fallen out of bed several days ago. His exam did not reveal any obvious trauma. Twelve-lead EKG shows a sinus rhythm at a rate of 74. His hemoglobin is 9.9. Ammonia level is 28. White blood cell count was normal. An ABG reveals a respiratory acidosis with a PCO2 of 64 and a pH of 7.29. PO2 was 96. CT scan of the brain did not show acute process. BiPAP was applied for about 1 hour and a repeat ABG did not show any improvement. The decision was made to intubate the patient as his mental status did not improve despite improvement of his hypoglycemia and initiation of BiPAP. The nurse who took care of the patient reportedly stated that his symptoms seem to worsen rather suddenly after getting the Cogentin. The patient was intubated using a Glidescope without difficulty. He was ventilated at a rate of 20 and volume of 650 with a oxygen concentration of 30% . His urine revealed findings to suggest a UTI. He was given IV Rocephin for this. The patient's vital signs remained stable throughout his stay. He did not have a fever, hypotension, excessive hypertension or arrhythmia. His EKG showed a sinus rhythm. Repeat ABG after intubation reveals improvement of his acid-base status and PCO2. The exact cause of the patient's symptoms are unclear at this time. The patient did have some hypoglycemia and hyperventilation. He also received narcotic medication as well as the Cogentin. These all may play a factor. There was no fevers, reported headaches or other concerns for systemic infection when the patient initially arrived. He was seen by the hospitalist for further inpatient evaluation and care. Medication Reconcilliation Current Medication List: was personally reviewed by me Blood Pressure Screening Patient's blood pressure: Normal blood pressure Blood pressure disposition: Did not require urgent referral Consults Time Called: 05 Consulting Physician: Dr. Suero [facility] hospitalist Returned Call: [phone] Discussed the patient's case. The patient will be evaluated for further treatment and disposition. Impression Primary Impression: Respiratory failure Additional Impressions: Altered mental status Respiratory acidosis Hypercarbia UTI (urinary tract infection) Hypoglycemia Critical Care I have personally spent 80 minutes of critical care time in the direct management of this patient. This includes bedside care, interpretation of diagnostic studies, and testing, discussion with consultants, patient, and family members, and other required patient management activities. This 80 minutes is in excess of all separately billable procedures. Scribe Attestation The scribe's documentation has been prepared under my direction and personally reviewed by me in its entirety. I confirm that the note above accurately reflects all work, treatment, procedures, and medical decision making performed by me. Departure Information Dispostion Being Evaluated By Hospitalist Prescriptions Benztropine Mesylate (Cogentin) 1 Mg Tab 1 MG PO BID for 3 Days, #6 TAB Prov: Gaston Payne MD 02/02/17 Referrals Syed Valdivia DCandy (PCP) Patient Instructions My [facility] Problem Qualifiers
[2017-02-03] MEDS ORDERED: ETOMIDATE 2 MG/ML 20 ML VIAL IV ONE (07:20)
[2017-02-03] MEDS ORDERED: SUCCINYLCHOLINE CHLORIDE 20 MG/ML 10 ML VIAL IV ONE (07:20)
[2017-02-03] MEDS ORDERED: LORAZEPAM 2 MG/ML 1 ML VIAL IV ONE (07:20)
[2017-02-03] MEDS ORDERED: VECURONIUM BROMIDE 10 MG VIAL IV ONE (07:20)
--- NOTE | 2017-02-03 07:22 | DIAGNOSTIC IMAGING REPORT ---
CERVICAL SPINE W/O CT DOSE: 515.22 mGy.cm HISTORY: Trauma fall, neck pain TECHNIQUE: Multiaxial CT images of the cervical spine were performed and reformatted in the sagittal and coronal plane without the use of contrast. A dose lowering technique was utilized adhering to the principles of ALARA. COMPARISON: None. FINDINGS: Significant degenerative disc change throughout the entire cervical region. No evidence for an acute compression deformity. Degenerative changes C1-C2 complex. Endotracheal tube in position. Mild prevertebral soft tissue edematous change with a trace amount of soft tissue air possibly on the basis of a traumatic intubation. IMPRESSION: Severe degenerative change. No acute bony abnormality. Endotracheal tube within the trachea The above report was generated using voice recognition software. It may contain grammatical, syntax or spelling errors. Electronically signed by: Madhu Aguilar M.D. 02/03/2017 7:21 AM Dictated Date/Time: 02/03/2017 7:17 AM
[2017-02-03] MEDS ORDERED: PIPERACILL/TAZOBAC IV 4.5 GM in DEXTROSE 5% 100ML 100 ML IV SCH (08:00)
[2017-02-03] MEDS ORDERED: D5W AND LACTATED RINGERS 1,000 ML IV SCH (08:00)
[2017-02-03] MEDS ORDERED: PIPERACILL/TAZOBAC CONSULT ACTIVE PRN (08:15)
[2017-02-03] MEDS ORDERED: PIPERACILL/TAZOBAC IV 4.5 GM in DEXTROSE 5% 100ML IV ONE (08:30)
[2017-02-03] MEDS ORDERED: PANTOprazole INJ 40 MG in SYRINGE 0 ML IV SCH (09:00)
[2017-02-03] MEDS ORDERED: FUROSEMIDE INJ 60 MG in SYRINGE 0 ML IV ONE (10:00)
[2017-02-03] MEDS: MODAFINIL 100 MG TAB PO SCH (10:12)
--- NOTE | 2017-02-03 11:17 | Critical Care Consultation ---
Critical Care Consultation Date of Consultation: Feb 03, 2017. Attending Physician: Fer Beltran MD Reason for Consultation: acute resp failure. History of Present Illness Dear Dr. Suero: Thank you for your kind referral of Mr. Bowen to ICU service. This is 75 yo male with hx of morbid obesity, DM, legally blind, fell few days ago and presented to the ED with neck pain, no headache , LOC, chest pain, NV or cardiac arrhythmia reported. he was treated with Dilaudid for pain times two doses 2/1 mg respectively, he developed somnolence and coarse movement thought to be related to dystonic reaction and treated with cogentin. afterward the pt ended intubated due to persistent LOC, head ct and neck ct were unremarkable. in the ICU, the pt started to wake up and follow commands, no sob or pain reported , intubated and the ROS was limited due to MV. able to give a thumb up. in discussion with his over the phone, the pt has been evaluated in the sleep lab at the [facility] and he could not tolerate the mask given years ago. he was supposed to get a renewal of the sleep study this coming week. he has been legally blind for several years. Family History Diabetes mellitus MOTHER BROTHER GRANDMOTHER FH: CAD (coronary artery disease) FATHER (CABG) FH: CHF (congestive heart failure) MOTHER BROTHER GI disorder Hypertension MOTHER Social History Smoking Status: Former Smoker Smokeless Tobacco Use: No Alcohol Use: none Drug Use: none Marital Status: Housing Status: lives with family Occupation Status: retired Allergies Coded Allergies: Oxycodone (Verified Adverse Reaction, Unknown, Trouble coming off, 02/03/17 ) Repoted by , NOT ALLERGIC TO THEM Propoxyphene (Verified Adverse Reaction, Unknown, Trouble coming off of Darvocet., 02/03/17) Reported by Home Medications Scheduled Aspirin (Aspirin Ec), 81 MG PO DAILY Benztropine Mesylate (Cogentin), 1 MG PO BID Finasteride (Proscar), 5 MG PO QAM Folic Acid (Folic Acid), 400 MCG PO QAM Furosemide (Lasix), 2 TAB PO BID Gabapentin (Neurontin), 600 MG PO QID Insulin Aspart (Novolog Flexpen), 8 UNITS SC QAM Insulin Aspart (Novolog Flexpen), 12 UNITS SC BID Insulin Glargine (Lantus Solostar), 35 SC QPM Metolazone (Zaroxolyn), 5 MG PO 2XWK Metoprolol Tartrate (Lopressor) (Lopressor), 12.5 MG PO BID Multivitamin (Multivitamin), 1 TAB PO DAILY Nystatin (Topical) (Nyata), 1 APPL TOP TID Nystatin-Triamcinolone (Nystatin/Triamcinolone), 1 APPLN TOP BID Ocuvite Preservision (Ocuvite Preservision), 1 TAB PO DAILY Omeprazole (Prilosec), 20 MG PO QAM Potassium Ext Rel (Klor-Con), 40 MEQ PO BID Simvastatin (Zocor), 40 MG PO HS Tamsulosin HCl (Tamsulosin HCl), 1 CAP PO HS Venlafaxine Hcl (Effexor), 75 MG PO BID Scheduled PRN Tramadol (Ultram), 50 MG PO Q12H PRN for Pain Current Inpatient Medications Current Inpatient Medications Medications (Trade) Dose Ordered Sig/Bj Route Start Time Stop Time Status Last Admin Dose Admin Pantoprazole Sodium 40 mg/ Syringe 10 ml @ 5 mls/min DAILY IV 02/03/17 09:00 03/05/17 08:59 02/03/17 08:36 5 MLS/MIN Dextrose/Lactated Ringer's 1,000 ml @ 125 mls/hr Q8H IV 02/03/17 08:00 03/05/17 07:59 02/03/17 08:35 125 MLS/HR Piperacillin Sod/ Tazobactam Sod 4.5 gm/Dextrose 120 ml @ 30 mls/hr Q8H IV 02/03/17 14:00 02/13/17 13:59 Piperacillin Sod/ Tazobactam Sod (Consult) 1 ea UD PRN N/A 02/03/17 08:15 03/05/17 08:14 Modafinil (proVIGIL TAB) 100 mg QAM PO 02/03/17 10:00 03/05/17 09:59 02/03/17 10:12 100 MG Review of Systems Constitutional: No fever, No chills, No sweats, No weight loss, No weakness, No fatigue, No problem reported Eyes: No worsening of vision, No eye pain, No redness, No discharge, No diplopia, No problem reported ENT: + problem reported Respiratory: No cough, No sputum, No wheezing, No shortness of breath, No dyspnea on exertion, No dyspnea at rest, No hemoptysis, No problem reported Cardiovascular: No chest pain, No orthopnea, No PND, No edema, No claudication , No palpitations, No problem reported Abdomen: No pain, No nausea, No vomiting, No diarrhea, No constipation, No GI bleeding, No problem reported Musculoskeletal: + problem reported Genitourinary - Male: No hematuria, No dysuria, No urinary frequency, No urinary urgency, No urinary hesitancy, No urinary retention, No urinary incontinence, No penile discharge, No lesions, No impotence, No problem reported Neurologic: + weakness, + balance problems Psychiatric: No depression symptoms, No anhedonism, No anxiety, No insomnia, No substance abuse, No problem reported Endocrine: No fatigue, No excessive thirst, No excessive urination, No problem reported Integumentary: No rash, No itch, No new/changing skin lesions, No color change , No bleeding, No problem reported Allergic / Immunologic: No environmental allergies, No seasonal allergies, No pet sensitivities, No food allergies, No hives, No frequent infections, No poor healing, No prolonged convalescence, No problem reported Physical Exam Date Time Temp Pulse Resp B/P (MAP) Pulse Ox O2 Delivery O2 Flow Rate FiO2 02/03/17 10:00 35.5 84 16 153/59 (90) 96 Mechanical Ventilator 02/03/17 09:36 30 02/03/17 08:45 34.9 81 20 95 Mechanical Ventilator 02/03/17 08:00 34.5 84 20 185/95 (125) 95 Mechanical Ventilator 02/03/17 07:21 30 02/03/17 07:00 34.5 79 20 186/91 100 Mechanical Ventilator 02/03/17 06:06 71 20 100 Mechanical Ventilator 02/03/17 06:02 174/83 02/03/17 05:41 47 02/03/17 05:36 67 20 100 Mechanical Ventilator 02/03/17 05:35 100 02/03/17 05:31 145/92 02/03/17 05:25 30 02/03/17 05:10 161/80 02/03/17 05:01 123/58 02/03/17 04:36 64 10 96 02/03/17 04:33 36.4 02/03/17 04:31 134/85 02/03/17 04:06 65 15 99 BiPAP 02/03/17 04:01 119/59 02/03/17 03:36 67 12 100 BiPAP 02/03/17 03:34 67 100 30 02/03/17 03:31 135/67 02/03/17 03:30 68 22 92 Nasal Cannula 2.0 02/03/17 03:18 97 Nasal Cannula 2.0 02/03/17 02:31 124/64 02/03/17 02:30 72 18 99 Nasal Cannula 4.0 02/03/17 02:23 146/67 02/03/17 02:22 74 02/03/17 01:05 82 18 133/76 92 Free Flow/Blowby 4.0 02/02/17 23:00 83 18 126/88 94 02/02/17 20:01 36.6 75 18 117/45 90 Room Air General Appearance: well-appearing, no apparent distress Head: normocephalic Eyes: PERRLA, no discharge ENT: normal nasal exam, normal mouth exam, normal throat exam Neck: normal range of motion, no stridor, supple, no thyromegaly Respiratory: breath sounds normal, clear to auscultation Cardiovasular: regular rate/rhythm, normal S1S2, no M/G/R Abdomen: non tender, normal bowel sounds, no rebound Lower Extremities: no edema Neuro: alert, normal motor exam Psychiatric: other Laboratory Results Last 24 Hours Test 02/03/17 02:11 02/03/17 02:24 02/03/17 02:33 02/03/17 02:54 Bedside Glucose 55 mg/dl 86 mg/dl White Blood Count 8.53 K/uL Red Blood Count 4.38 M/uL Hemoglobin 9.9 g/dL Hematocrit 33.6 % Mean Corpuscular Volume 76.7 fL Mean Corpuscular Hemoglobin 22.6 pg Mean Corpuscular Hemoglobin Concent 29.5 g/dl Platelet Count 241 K/uL Mean Platelet Volume 9.5 fL Neutrophils (%) (Auto) 53.9 % Lymphocytes (%) (Auto) 32.7 % Monocytes (%) (Auto) 7.3 % Eosinophils (%) (Auto) 5.4 % Basophils (%) (Auto) 0.2 % Neutrophils # (Auto) 4.60 K/uL Lymphocytes # (Auto) 2.79 K/uL Monocytes # (Auto) 0.62 K/uL Eosinophils # (Auto) 0.46 K/uL Basophils # (Auto) 0.02 K/uL RDW Standard Deviation 50.7 fL RDW Coefficient of Variation 18.0 % Immature Granulocyte % (Auto) 0.5 % Immature Granulocyte # (Auto) 0.04 K/uL Prothrombin Time 10.4 SECONDS Prothromb Time International Ratio 1.0 Activated Partial Thromboplast Time 22.2 SECONDS Partial Thromboplastin Ratio 0.9 Sodium Level 141 mmol/L Potassium Level 4.2 mmol/L Chloride Level 105 mmol/L Carbon Dioxide Level 28 mmol/L Anion Gap 8.0 mmol/L Blood Urea Nitrogen 17 mg/dl Creatinine 1.40 mg/dl Estimated GFR () 56.6 Estimated GFR (Non- 48.8 BUN/Creatinine Ratio 11.9 Random Glucose 53 mg/dl Calcium Level 8.3 mg/dl Total Bilirubin 0.3 mg/dl Direct Bilirubin mg/dl Aspartate Amino Transf (AST/SGOT) 42 U/L Alanine Aminotransferase (ALT/SGPT) 25 U/L Alkaline Phosphatase 98 U/L Ammonia 28.0 umol/L Total Creatine Kinase 258 U/L Creatine Kinase MB 5.6 ng/ml Creatine Kinase MB Ratio 2.2 Troponin I < 0.015 ng/ml Total Protein 7.3 gm/dl Albumin 2.8 gm/dl Lipase 58 U/L Thyroid Stimulating Hormone (TSH) 2.090 uIu/ml Chemistry Specimen Hemolysis Arterial Blood pH 7.29 Arterial Blood Partial Pressure CO2 64 mmHg Arterial Blood Partial Pressure O2 96 mm/Hg Arterial Blood HCO3 30 mmol/L Arterial Blood Oxygen Saturation 95.2 % Arterial Blood Base Excess 2.6 mEq/L Arterial Blood Gas Delivery 4 L Khoa Test POS Test 02/03/17 02:55 02/03/17 03:24 02/03/17 03:48 02/03/17 04:49 Urine Color DK YELLOW Urine Appearance CLOUDY Urine pH 7.5 Urine Specific [place] 1.017 Urine Protein NEG Urine Glucose (UA) NEG Urine Ketones NEG Urine Occult Blood 2+ Urine Nitrite NEG Urine Bilirubin NEG Urine Urobilinogen NEG Urine Leukocyte Esterase LARGE Urine WBC (Auto) >30 /hpf Urine RBC (Auto) >30 /hpf Urine Hyaline Casts (Auto) 1-5 /lpf Urine Epithelial Cells (Auto) 5-10 /lpf Urine Bacteria (Auto) 1+ Urine Opiates Screen POS Urine Methadone, Qualitative NEG Urine Barbiturates NEG Urine Phencyclidine (PCP) Level NEG Ur Amphetamine/Methamphetamine NEG MDMA (Ecstasy) Screen NEG Urine Benzodiazepines Screen NEG Urine Cocaine Metabolite NEG Urine Marijuana (THC) NEG Bedside Glucose 91 mg/dl Arterial Blood pH 7.31 Arterial Blood Partial Pressure CO2 64 mmHg Arterial Blood Partial Pressure O2 92 mm/Hg Arterial Blood HCO3 31 mmol/L Arterial Blood Oxygen Saturation 94.8 % Arterial Blood Base Excess 4.0 mEq/L Arterial Blood Gas Delivery 30% BIPAP Khoa Test POS Test 02/03/17 05:47 02/03/17 06:38 02/03/17 07:50 Bedside Glucose 80 mg/dl 89 mg/dl Arterial Blood pH 7.47 Arterial Blood Partial Pressure CO2 40 mmHg Arterial Blood Partial Pressure O2 105 mm/Hg Arterial Blood HCO3 28 mmol/L Arterial Blood Oxygen Saturation 97.5 % Arterial Blood Base Excess 4.2 mEq/L Arterial Blood Gas Delivery 30% Khoa Test POS Lactic Acid Level 0.6 mmol/L Phosphorus Level 3.0 mg/dl Magnesium Level 2.3 mg/dl Troponin I < 0.015 ng/ml Procalcitonin < 0.05 ng/ml Diagnostic Results head ct without intracranial catastrophe. CXR with right pleural effusion and CM, ETT in good position. 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 2- the pt legally blind and could have circadian rhythm abnormality such as non 24 free run. 3- DM. 4- morbid obesity. 5- recent fall with neck pain. Plan: 1- will proceed with quick SBT and extubation. intubation likely will not solve his sleep related breathing disorder, his resp drive could not tolerate even 2 mg of Dilaudid, which speaks for underlying central sleep apnea as well. CPAP will be useless. BIPAP and AVAP or adaptivservo would be ideal. 2- will restore his circadian rhythm by adding provigil day time and Bipap Nocturnally. 3- continue current medication. 4- he will need actigraphy. and dedicated sleep eval. 5- avoid narcotics for pain control. topical lido and toradol should be adequate. 6- this is not a case of spinal or cerebral infection , no need for LP. 7- full code. 8- DVT prophylaxis. 9- oral intake once extubated. 10- expect episodes of unresponsiveness , which needs to be evaluated with PSG and video montage not just a PSG, 11- obtain echo if not done already. discussed with Dr. Arboleda and the staff on rounds in details. discussed with the in details, all her questions answered. CCt 60 min.
[2017-02-03] MEDS ORDERED: GLUCAGON FOR INJ 1 MG VIAL SQ PRN (11:30)
[2017-02-03] MEDS ORDERED: DEXTROSE 50% 50 ML SYR IV PRN (11:30)
[2017-02-03] MEDS ORDERED: ACETAMINOPHEN 325 MG TAB PO PRN (11:30)
[2017-02-03] MEDS ORDERED: GLUCOSE 40% GEL 15 GM TUBE PO PRN (11:30)
[2017-02-03] MEDS ORDERED: GLUCOSE 10 TABS/TUBE PO PRN (11:30)
[2017-02-03] MEDS ORDERED: PHARMACY GLYCEMIC MGMT CONSULT PRN (11:58)
--- NOTE | 2017-02-03 12:20 | Pharmacy Progress Note ---
Glycemic Control Intl Consult Date of Service Feb 03, 2017. Scope Glycemic Pharmacist consulted by Dr Chi on 02/03/17 for glycemic control and to write orders per [facility] inpatient glycemic control protocol Objective Weight (Kilograms): 138.400 Accuchecks BSG (last 24hrs): Test 02/03/17 02:11 02/03/17 02:24 02/03/17 02:54 02/03/17 03:48 Bedside Glucose 55 mg/dl (70-99) 86 mg/dl (70-99) 91 mg/dl (70-99) Random Glucose 53 mg/dl (70-99) Test 02/03/17 05:47 02/03/17 07:50 Bedside Glucose 80 mg/dl (70-99) 89 mg/dl (70-99) Laboratory Data (last 24hrs) Test 02/03/17 02:24 Anion Gap 8.0 mmol/L BUN/Creatinine Ratio 11.9 Blood Urea Nitrogen 17 mg/dl Creatinine 1.40 mg/dl Potassium Level 4.2 mmol/L Sodium Level 141 mmol/L White Blood Count 8.53 K/uL Red Blood Count 4.38 M/uL Hemoglobin 9.9 g/dL Hematocrit 33.6 % Mean Corpuscular Volume 76.7 fL Mean Corpuscular Hemoglobin 22.6 pg Mean Corpuscular Hemoglobin Concent 29.5 g/dl Platelet Count 241 K/uL Mean Platelet Volume 9.5 fL Neutrophils (%) (Auto) 53.9 % Lymphocytes (%) (Auto) 32.7 % Monocytes (%) (Auto) 7.3 % Eosinophils (%) (Auto) 5.4 % Basophils (%) (Auto) 0.2 % Neutrophils # (Auto) 4.60 K/uL Lymphocytes # (Auto) 2.79 K/uL Monocytes # (Auto) 0.62 K/uL Eosinophils # (Auto) 0.46 K/uL Basophils # (Auto) 0.02 K/uL HbA1c Item Value Date Time Hemoglobin A1c 8.8 % H 08/15/162 Estimated Average Glucose 206 mg/dl 08/15/16 0442 Recent Pertinent Medications Outpatient Anti-diabetic Regimen: * Lantus 35 units QPM * Novolog w meals Risk Factors for Insulin Resistance: * IVF * Diet * Mechanical Ventilation Assessment & Plan ASSESSMENT: * 75 yo M admitted to ICU s/p intubation this AM * Pt developed AMS, found to have BSG of 55 mg/dL * D50 pushed and patient initiated on D5LR @125 cc/hr * Pt extubated @ 1100 and pharmacy consulted for BSG management * He is known to pharmacy from prior admissions - but that data may not be helpful until patient stabilizes * Spoke with nurse and crewman main battle tank - plan for now is NPO until patient is more alert - then swallow eval later this evening * I plan to initiate a reduced dose of Lantus, split q 12 versus a full bedtime dose to ease titration and cut down risk of hypoglycemia * ADA & AACE recommend a goal blood sugar range 140-180 mg/dl for the majority of critically ill & non-critically ill patients. However, more stringent targets may be selected in individual cases. PLAN FOR INPATIENT GLYCEMIC CONTROL: * Discontinue dextrose containing fluids (VORB Dr. Chi) * Basal insulin with LANTUS 12 units SQ BID - hold if BSG less than 100 mg/dL * Correctional Insulin with NOVOLOG per scale ACHS or Q6hrs while NPO * Goal Range: Low 120 mg/dL - High 160 mg/dL * Correction Factor: 30 mg/dL/unit * Nutritional / Prandial insulin per carb ratio of 1 unit per 10 grams CHO consumed * Please note that the plan above was derived based on current level of insulin resistance and hospital stress. These recommendations are appropriate for inpatient admission only. Plan of care upon discharge will need to be reassessed to avoid potential outpatient hypo/hyperglycemia. Thank you.
[2017-02-03] MEDS: PIPERACILL/TAZOBAC IV 4.5 GM in DEXTROSE 5% 100ML IV SCH ×2 (14:04→21:05)
[2017-02-03] MEDS ORDERED: KETOROLAC TROMETHAMINE 15 MG/ML VIAL ONE (14:27)
[2017-02-03] MEDS ORDERED: DexMEDEtomidine IV DRIP IV STA (14:28)
[2017-02-03] MEDS: TRAMADOL HCL 50 MG TAB PO PRN (14:42)
[2017-02-03] MEDS ORDERED: NURSING VERBAL MED ORDER ONE ×2 (14:45→22:00)
[2017-02-03] MEDS: DexMEDEtomidine HCL INJ 200 MCG in SODIUM CHLORIDE 0.9% 50ML 48 ML IV PRN ×2 (15:52→18:28)
[2017-02-03] MEDS: INSULIN ASPART 100 UNITS/ML 3 ML PEN SC SCH ×2 (16:00→21:00)
[2017-02-03] MEDS ORDERED: FUROSEMIDE 40 MG TAB PO SCH (17:00)
[2017-02-03] MEDS ORDERED: INFLUENZA VACCINE HIGH DOSE 65+ 0.5 ML SYR IM. ONE (17:30)
[2017-02-03] MEDS ORDERED: INFLUENZA ADMINISTRATION CHARGE ONE (17:30)
[2017-02-03] MEDS: POTASSIUM CHLORIDE 20 MEQ TABCR PO SCH (21:00)
[2017-02-03] MEDS: INSULIN GLARGINE SOLOSTAR 100 UNITS/ML 3 ML PEN SC SCH (21:10)
[2017-02-03] MEDS: HEPARIN SOD 5000 UNIT/0.5 ML CARP SQ SCH (21:21)
[2017-02-03] MEDS ORDERED: KETOROLAC TROMETHAMINE 15 MG/ML VIAL IV. STA (21:53)
--- NOTE | 2017-02-03 22:10 | Progress Note ---
Medicine Progress Note Date & Time of Visit: Feb 03, 2017 at 22:09. delayed entry date of service as noted above Subjective seen with LOG SORTING SUPERVISOR at bedside patient just extubated, very drowsy, does not respond to questions but not in distress at all Objective Last 8 Hrs Date Time Temp Pulse Resp B/P (MAP) Pulse Ox O2 Delivery O2 Flow Rate FiO2 02/03/17 20:00 98 2.0 02/03/17 20:00 36.8 64 17 134/70 (91) 98 Nasal Cannula 2.0 02/03/17 18:00 63 20 127/59 (81) 98 Nasal Cannula 4.0 02/03/17 16:00 36.8 69 16 142/70 (94) 98 Nasal Cannula 4.0 02/03/17 16:00 4.0 Physical Exam: General- drowsy not in distress, no accessory muscle use Head- atraumatic Eyes- PERRL, anicteric Neck- supple, no JVD, no adenopathy, no thyromegaly Lungs- clear to auscultation bilaterally, no rales/wheezes Heart- regular rhythm; no murmur, normal rate Abdomen- obese, normal bowel sounds, soft, nontender linear open wound on the abdominal fold, no signs of infection Extremities- mild lower leg edema, mild hematoma anterior thighs, no calf tenderness Neuro- alert, oriented x 3;no gross focal deficits Laboratory Results: Last 24 Hours Test 02/03/17 02:11 02/03/17 02:24 02/03/17 02:33 02/03/17 02:54 Bedside Glucose 55 mg/dl 86 mg/dl White Blood Count 8.53 K/uL Red Blood Count 4.38 M/uL Hemoglobin 9.9 g/dL Hematocrit 33.6 % Mean Corpuscular Volume 76.7 fL Mean Corpuscular Hemoglobin 22.6 pg Mean Corpuscular Hemoglobin Concent 29.5 g/dl Platelet Count 241 K/uL Mean Platelet Volume 9.5 fL Neutrophils (%) (Auto) 53.9 % Lymphocytes (%) (Auto) 32.7 % Monocytes (%) (Auto) 7.3 % Eosinophils (%) (Auto) 5.4 % Basophils (%) (Auto) 0.2 % Neutrophils # (Auto) 4.60 K/uL Lymphocytes # (Auto) 2.79 K/uL Monocytes # (Auto) 0.62 K/uL Eosinophils # (Auto) 0.46 K/uL Basophils # (Auto) 0.02 K/uL RDW Standard Deviation 50.7 fL RDW Coefficient of Variation 18.0 % Immature Granulocyte % (Auto) 0.5 % Immature Granulocyte # (Auto) 0.04 K/uL Prothrombin Time 10.4 SECONDS Prothromb Time International Ratio 1.0 Activated Partial Thromboplast Time 22.2 SECONDS Partial Thromboplastin Ratio 0.9 Sodium Level 141 mmol/L Potassium Level 4.2 mmol/L Chloride Level 105 mmol/L Carbon Dioxide Level 28 mmol/L Anion Gap 8.0 mmol/L Blood Urea Nitrogen 17 mg/dl Creatinine 1.40 mg/dl Estimated GFR () 56.6 Estimated GFR (Non- 48.8 BUN/Creatinine Ratio 11.9 Random Glucose 53 mg/dl Calcium Level 8.3 mg/dl Total Bilirubin 0.3 mg/dl Direct Bilirubin mg/dl Aspartate Amino Transf (AST/SGOT) 42 U/L Alanine Aminotransferase (ALT/SGPT) 25 U/L Alkaline Phosphatase 98 U/L Ammonia 28.0 umol/L Total Creatine Kinase 258 U/L Creatine Kinase MB 5.6 ng/ml Creatine Kinase MB Ratio 2.2 Troponin I < 0.015 ng/ml Total Protein 7.3 gm/dl Albumin 2.8 gm/dl Lipase 58 U/L Thyroid Stimulating Hormone (TSH) 2.090 uIu/ml Chemistry Specimen Hemolysis Arterial Blood pH 7.29 Arterial Blood Partial Pressure CO2 64 mmHg Arterial Blood Partial Pressure O2 96 mm/Hg Arterial Blood HCO3 30 mmol/L Arterial Blood Oxygen Saturation 95.2 % Arterial Blood Base Excess 2.6 mEq/L Arterial Blood Gas Delivery 4 L Khoa Test POS Test 02/03/17 02:55 02/03/17 03:24 02/03/17 03:48 02/03/17 04:49 Urine Color DK YELLOW Urine Appearance CLOUDY Urine pH 7.5 Urine Specific [place] 1.017 Urine Protein NEG Urine Glucose (UA) NEG Urine Ketones NEG Urine Occult Blood 2+ Urine Nitrite NEG Urine Bilirubin NEG Urine Urobilinogen NEG Urine Leukocyte Esterase LARGE Urine WBC (Auto) >30 /hpf Urine RBC (Auto) >30 /hpf Urine Hyaline Casts (Auto) 1-5 /lpf Urine Epithelial Cells (Auto) 5-10 /lpf Urine Bacteria (Auto) 1+ Urine Opiates Screen POS Urine Methadone, Qualitative NEG Urine Barbiturates NEG Urine Phencyclidine (PCP) Level NEG Ur Amphetamine/Methamphetamine NEG MDMA (Ecstasy) Screen NEG Urine Benzodiazepines Screen NEG Urine Cocaine Metabolite NEG Urine Marijuana (THC) NEG Bedside Glucose 91 mg/dl Arterial Blood pH 7.31 Arterial Blood Partial Pressure CO2 64 mmHg Arterial Blood Partial Pressure O2 92 mm/Hg Arterial Blood HCO3 31 mmol/L Arterial Blood Oxygen Saturation 94.8 % Arterial Blood Base Excess 4.0 mEq/L Arterial Blood Gas Delivery 30% BIPAP Khoa Test POS Test 02/03/17 05:47 02/03/17 06:38 02/03/17 07:50 02/03/17 12:10 Bedside Glucose 80 mg/dl 89 mg/dl 155 mg/dl Arterial Blood pH 7.47 Arterial Blood Partial Pressure CO2 40 mmHg Arterial Blood Partial Pressure O2 105 mm/Hg Arterial Blood HCO3 28 mmol/L Arterial Blood Oxygen Saturation 97.5 % Arterial Blood Base Excess 4.2 mEq/L Arterial Blood Gas Delivery 30% Khoa Test POS Lactic Acid Level 0.6 mmol/L Phosphorus Level 3.0 mg/dl Magnesium Level 2.3 mg/dl Troponin I < 0.015 ng/ml Procalcitonin < 0.05 ng/ml Test 02/03/17 16:33 02/03/17 21:01 Bedside Glucose 151 mg/dl 122 mg/dl Date/Time Source Procedure Growth Status 02/03/17 06:38 Blood Blood Culture Pending Received 02/03/17 06:30 Blood Blood Culture Pending Received 02/03/17 07:00 Nasal MRSA DNA Surveillance Screen - Final Specimen Positive for MRSA by DNA Probe Complete 02/03/17 02:55 Urine,Catheterized Urine Culture Pending Received 02/03/17 07:00 Skin Thigh Gram Stain Pending Received 02/03/17 07:00 Skin Thigh Wound Culture Pending Received Assessment & Plan 75 year old male with history of CHF Diastolic Type, DM, HTN, GILLES, other problems noted below presenting with altered mental status. TOXIC/METABOLIC ENCEPHALOPATHY/ ALTERED MENTAL STATUS LIKELY FROM DILAUDID, HYPERCAPNEA, HYPOGLYCEMIA - no narcotics - monitoring post extubation - monitoring BSGs - continue ICU monitoring ACUTE ON CHRONIC DIASTOLIC HEART FAILURE - given Lasix 60mg IV with good diuresis UTI, STREP - afebrile, no leukocytosis - on Zosyn WOUND ON THE LEG - will have wound care consult NECK PAIN - CT cervical spine unrevealing DM 2 - on Insulin - Pharmacy Glycemic Control consult HTN - usually takes Metoprolol GILLES - does not tolerate CPAP DVT PROPHYLAXIS SCDs Full Code DISPOSITION lives at home with PT/OT Current Inpatient Medications: Current Inpatient Medications Medications (Trade) Dose Ordered Sig/Bj Route Start Time Stop Time Status Last Admin Dose Admin Piperacillin Sod/ Tazobactam Sod 4.5 gm/Dextrose 120 ml @ 30 mls/hr Q8H IV 02/03/17 14:00 02/13/17 13:59 02/03/17 21:05 30 MLS/HR Piperacillin Sod/ Tazobactam Sod (Consult) 1 ea UD PRN N/A 02/03/17 08:15 03/05/17 08:14 Modafinil (proVIGIL TAB) 100 mg QAM PO 02/03/17 10:00 03/05/17 09:59 02/03/17 10:12 100 MG Pantoprazole Sodium (Protonix Tab) 40 mg QAM PO 02/04/17 09:00 03/06/17 08:59 Aspirin (Ecotrin Tab) 81 mg DAILY PO 02/04/17 09:00 03/06/17 08:59 Finasteride (Proscar Tab) 5 mg QAM PO 02/04/17 09:00 03/06/17 08:59 Tamsulosin HCl (Flomax Cap) 0.4 mg QAM PO 02/04/17 09:00 03/06/17 08:59 Potassium Chloride (Klor-Con Tab) 20 meq BID PO 02/03/17 21:00 03/05/17 20:59 Tramadol HCl (Ultram Tab) 25 mg Q4H PRN PO 02/03/17 11:30 03/05/17 11:29 02/03/17 14:42 25 MG Acetaminophen (Tylenol Tab) 650 mg Q4H PRN PO 02/03/17 11:30 03/05/17 11:29 Heparin Sodium (Porcine) (Heparin Sq 5000 Unit/0.5ml) 5,000 unit Q12 SQ 02/03/17 21:00 03/05/17 20:59 02/03/17 21:21 5,000 UNIT Insulin Aspart (novoLOG ASPART) SLIDING SCALE If C... ACHS SC 02/03/17 16:00 03/05/17 15:59 Glucose (Glucose 40% Gel) 15-30 GRAMS 15 GRAMS... UD PRN PO 02/03/17 11:30 03/05/17 11:29 Glucose (Glucose Chew Tab) 4-8 Tablets 4 Tabl... UD PRN PO 02/03/17 11:30 03/05/17 11:29 Dextrose (Dextrose 50% 50ML Syringe) 25-50ML OF 50% DW IV FOR... UD PRN IV 02/03/17 11:30 03/05/17 11:29 Glucagon (Glucagon Inj) 1 mg UD PRN SQ 02/03/17 11:30 03/05/17 11:29 Miscellaneous Information (Consult Glycemic Management Pharmacy) 1 ea UD PRN N/A 02/03/17 11:58 03/05/17 11:57 Insulin Glargine (Lantus Solostar Pen) 12 units Q12 SC 02/03/17 21:00 03/05/17 20:59 02/03/17 21:10 12 UNITS Dexmedetomidine HCl 200 mcg/ Sodium Chloride 50 ml @ 0 mls/hr Q0M PRN IV 02/03/17 14:45 02/07/17 14:44 02/03/17 18:28 6.9 MLS/HR
[2017-02-04] VITALS (13 sets, daily range): BP systolic 98–171; BP diastolic 42–76; PULSE 51–100; TEMP 36.4–36.7; O2SAT 83–98; Ht 177.8 cm; Wt 128.3 kg
[2017-02-04] MEDS: TRAMADOL HCL 50 MG TAB PO PRN ×3 (00:20→10:32)
[2017-02-04] MEDS ORDERED: DEXMEDETOMIDINE HCL IV PRN ×2 (01:00)
[2017-02-04] MEDS ORDERED: SODIUM CHLORIDE 0.9% IV PRN ×2 (01:00)
[2017-02-04] MEDS: DexMEDEtomidine HCL INJ 400 MCG in SODIUM CHLORIDE 0.9% 100ML 96 ML IV PRN ×2 (01:07→07:09)
[2017-02-04 05:37] LABS: BASO % 0.1 %; BASO ABS # 0.01 K/uL (0-0.2); COMPLETE YES; EOS % 3.8 %; HEMATOCRIT 33.4 % (42-52); IG% 0.1 %; LYMPH % 22.5 %; LYMPH ABS # 1.58 K/uL (1.2-3.4); MEAN CELL VOLUME 76.1 fL (80-100); MEAN CORPUSCULAR HEMOGLOBIN 22.6 pg (25-34); MEAN CORPUSCULAR HGB CONC 29.6 g/dl (32-36); MEAN PLATELET VOLUME 9.2 fL (7.4-10.4); MONO % 6.3 %; NEUT % 67.2 %; PLATELET COUNT 229 K/uL (130-400); RED BLOOD COUNT 4.39 M/uL (4.7-6.1); WHITE BLOOD COUNT 7.03 K/uL (4.8-10.8)
[2017-02-04] MEDS: PIPERACILL/TAZOBAC IV 4.5 GM in DEXTROSE 5% 100ML IV SCH (05:41)
[2017-02-04 06:08] LABS: BUN/CREATININE RATIO 11.4 (10-20); CALCIUM 8.3 mg/dl (8.5-10.1); CREATININE 1.1 mg/dl (0.60-1.40); MAGNESIUM 2.1 mg/dl (1.8-2.4); PHOSPHORUS 3.3 mg/dl (2.5-4.9); POTASSIUM 3.5 mmol/L (3.5-5.1)
[2017-02-04] MEDS: INSULIN ASPART 100 UNITS/ML 3 ML PEN SC SCH ×4 (06:45→21:00)
--- NOTE | 2017-02-04 07:06 | Clinical Documentation Query ---
DEMETRA Henning : CLINICAL DOCUMENTATION QUERY Patient is a 76 year old male admitted for acute on chronic hypercapnic respiratory failure and acute on chronic diastolic CHF. Documentation includes "altered mental status". As this is only a symptom, consider documentation of a clinical diagnosis such as that listed below. H&P noted AMS "suspected multifactorial etiologies-medications, hypoglycemia, hypercapnia". He was evaluated by CT scan, ABG, labs, and serial assessment. In your clinical opinion is this patient being managed for: ( ) Toxic/metabolic encephalopathy ( ) Not Agree ( x) Other explanation of clinical findings (Please Explain) Toxic Metabolic Encephalopathy ( ) Unable to determine (Please Define) ( ) Need to Discuss The medical record reflects the following clinical findings, treatment, and risk factors. Clinical Indicators: Treatment:He was evaluated by CT scan, ABG, labs, and serial assessment, mechanical ventilation Risk Factors: Age, obesity, medications Please clarify and document your clinical opinion in the progress notes and discharge summary. Terms such as "probable", "suspected", "likely", "questionable", "possible", or "still to be ruled out" are acceptable. IF IN AGREEMENT, YOU MUST DOCUMENT ABOVE DIAGNOSTIC STATEMENT IN DAILY PROGRESS NOTES AND DISCHARGE SUMMARY. This document is not part of the patient's record. Thank You, Buzz Kemp RN [phone]
--- NOTE | 2017-02-04 07:10 | DIAGNOSTIC IMAGING REPORT ---
CHEST ONE VIEW PORTABLE HISTORY: 76 years-old Male altered mental status acute altered mental status. COMPARISON: Portable chest radiograph 02/03/2017 TECHNIQUE: Semiupright AP view of the chest FINDINGS: There has been interval extubation. Cardiac silhouette is again moderately enlarged with pulmonary vascular congestion and background interstitial coarsening. Lungs are mildly hypoinflated without pneumothorax. There is improved aeration of the bilateral lungs with persistent bibasilar subsegmental opacities and blunting of the left costophrenic angle. The bones are grossly intact. IMPRESSION: 1. Interval extubation. 2. Improved aeration of the bilateral lungs with persistent background mild pulmonary edema and small left pleural effusion. The above report was generated using voice recognition software. It may contain grammatical, syntax or spelling errors. Electronically signed by: Cj Hemphill M.D. 02/04/2017 7:09 AM Dictated Date/Time: 02/04/2017 7:06 AM
[2017-02-04 07:16] LABS: ESTIMATED AVERAGE GLUCOSE 243 mg/dl; HA1C FLAG Normal (Normal)
[2017-02-04] MEDS: ASPIRIN 81 MG ECTAB PO SCH (08:01)
[2017-02-04] MEDS: TAMSULOSIN HCL 0.4 MG CAP PO SCH (08:02)
[2017-02-04] MEDS: FINASTERIDE 5 MG TAB PO SCH (08:02)
[2017-02-04] MEDS: PANTOprazole SOD 40 MG TAB PO SCH (08:02)
[2017-02-04] MEDS: POTASSIUM CHLORIDE 20 MEQ TABCR PO SCH ×2 (08:02→17:35)
[2017-02-04] MEDS: HEPARIN SOD 5000 UNIT/0.5 ML CARP SQ SCH (08:04)
[2017-02-04] MEDS: INSULIN GLARGINE SOLOSTAR 100 UNITS/ML 3 ML PEN SC SCH ×2 (08:04→21:00)
[2017-02-04] MEDS: MODAFINIL 100 MG TAB PO SCH (08:06)
[2017-02-04] MEDS ORDERED: METOLAZONE 5 MG TAB PO SCH (08:30)
[2017-02-04] MEDS: ENOXAPARIN 40 MG/0.4 ML SYR SQ SCH ×2 (09:00→20:21)
--- NOTE | 2017-02-04 09:26 | Progress Note ---
Medicine Progress Note Date & Time of Visit: Feb 04, 2017 at 09:23. Subjective precedex was discontinued this AM patient sleeping but easily rousable, oriented x 2 states he feels improved today main symptom is neck pain, worse with turning head to the right denies chest pain, dyspnea, palpitations, dizziness no abdominal pain, nausea denies chills no other symptoms Objective Last 8 Hrs Date Time Temp Pulse Resp B/P (MAP) Pulse Ox O2 Delivery O2 Flow Rate FiO2 02/04/17 08:00 36.4 58 16 171/66 (101) 96 Nasal Cannula 3.0 02/04/17 08:00 2.0 02/04/17 06:00 54 15 123/56 (78) 96 Nasal Cannula 2.0 02/04/17 04:00 98 2.0 02/04/17 04:00 36.5 51 14 110/52 (71) 96 Nasal Cannula 2.0 02/04/17 02:00 54 16 126/62 (83) 96 Nasal Cannula 2.0 Physical Exam: General- alert, oriented x 2, not in distress, speaks in sentences with no effort Head- atraumatic Eyes- EOMI, anicteric ENT- oropharynx clear Neck- supple, no JVD, no adenopathy, no thyromegaly (+) pain with moving head to the right Lungs- clear to auscultation bilaterally, no rales/wheezes Heart- regular rhythm; no murmur, normal rate Abdomen- obese, normal bowel sounds, soft, nontender linear open wound on the abdominal fold, no signs of infection Extremities- mild lower leg edema, mild hematoma anterior thighs, no calf tenderness Neuro- alert, oriented x 3;no gross focal deficits Skin- warm & dry Laboratory Results: Last 24 Hours Test 02/03/17 12:10 02/03/17 16:33 02/03/17 21:01 02/03/17 23:41 Bedside Glucose 155 mg/dl 151 mg/dl 122 mg/dl 129 mg/dl Test 02/04/17 05:09 02/04/17 06:03 White Blood Count 7.03 K/uL Red Blood Count 4.39 M/uL Hemoglobin 9.9 g/dL Hematocrit 33.4 % Mean Corpuscular Volume 76.1 fL Mean Corpuscular Hemoglobin 22.6 pg Mean Corpuscular Hemoglobin Concent 29.6 g/dl Platelet Count 229 K/uL Mean Platelet Volume 9.2 fL Neutrophils (%) (Auto) 67.2 % Lymphocytes (%) (Auto) 22.5 % Monocytes (%) (Auto) 6.3 % Eosinophils (%) (Auto) 3.8 % Basophils (%) (Auto) 0.1 % Neutrophils # (Auto) 4.72 K/uL Lymphocytes # (Auto) 1.58 K/uL Monocytes # (Auto) 0.44 K/uL Eosinophils # (Auto) 0.27 K/uL Basophils # (Auto) 0.01 K/uL RDW Standard Deviation 50.3 fL RDW Coefficient of Variation 18.0 % Immature Granulocyte % (Auto) 0.1 % Immature Granulocyte # (Auto) 0.01 K/uL Sodium Level 141 mmol/L Potassium Level 3.5 mmol/L Chloride Level 102 mmol/L Carbon Dioxide Level 32 mmol/L Anion Gap 7.0 mmol/L Blood Urea Nitrogen 13 mg/dl Creatinine 1.10 mg/dl Est Creatinine Clear Calc Drug Dose 81.4 ml/min Estimated GFR () 75.7 Estimated GFR (Non- 65.3 BUN/Creatinine Ratio 11.4 Random Glucose 111 mg/dl Estimated Average Glucose 243 mg/dl Hemoglobin A1c 10.1 % Calcium Level 8.3 mg/dl Phosphorus Level 3.3 mg/dl Magnesium Level 2.1 mg/dl Bedside Glucose 102 mg/dl Assessment & Plan 75 year old male with history of CHF Diastolic Type, DM, HTN, GILLES, other problems noted below presenting with altered mental status. TOXIC/METABOLIC ENCEPHALOPATHY/ ALTERED MENTAL STATUS LIKELY FROM DILAUDID, HYPERCAPNEA, HYPOGLYCEMIA - resolved - no narcotics - extubated yesterday - monitor BSGs - required Precedex overnight, mental status seems back to baseline today ACUTE ON CHRONIC DIASTOLIC HEART FAILURE - given Lasix 60mg IV with good diuresis - resume usual PO Lasix and Metolazone UTI, STREP - colonization? - afebrile, no leukocytosis - on Zosyn WOUND ON THE LEG - will have wound care consult NECK PAIN - CT cervical spine unrevealing - will add PRN Toradol, Ofirmev DM 2 - on Insulin - Pharmacy Glycemic Control consult HTN - resume usual Metoprolol GILLES - does not tolerate CPAP DVT PROPHYLAXIS SCDs Full Code DISPOSITION lives at home with PT/OT Current Inpatient Medications: Current Inpatient Medications Medications (Trade) Dose Ordered Sig/Bj Route Start Time Stop Time Status Last Admin Dose Admin Modafinil (proVIGIL TAB) 100 mg QAM PO 02/03/17 10:00 03/05/17 09:59 02/04/17 08:06 100 MG Pantoprazole Sodium (Protonix Tab) 40 mg QAM PO 02/04/17 09:00 03/06/17 08:59 02/04/17 08:02 40 MG Aspirin (Ecotrin Tab) 81 mg DAILY PO 02/04/17 09:00 03/06/17 08:59 02/04/17 08:01 81 MG Finasteride (Proscar Tab) 5 mg QAM PO 02/04/17 09:00 03/06/17 08:59 02/04/17 08:02 5 MG Tamsulosin HCl (Flomax Cap) 0.4 mg QAM PO 02/04/17 09:00 03/06/17 08:59 02/04/17 08:02 0.4 MG Potassium Chloride (Klor-Con Tab) 20 meq BID PO 02/03/17 21:00 03/05/17 20:59 02/04/17 08:02 20 MEQ Tramadol HCl (Ultram Tab) 25 mg Q4H PRN PO 02/03/17 11:30 03/05/17 11:29 02/04/17 05:51 25 MG Acetaminophen (Tylenol Tab) 650 mg Q4H PRN PO 02/03/17 11:30 03/05/17 11:29 Insulin Aspart (novoLOG ASPART) SLIDING SCALE If C... ACHS SC 02/03/17 16:00 03/05/17 15:59 Glucose (Glucose 40% Gel) 15-30 GRAMS 15 GRAMS... UD PRN PO 02/03/17 11:30 03/05/17 11:29 Glucose (Glucose Chew Tab) 4-8 Tablets 4 Tabl... UD PRN PO 02/03/17 11:30 03/05/17 11:29 Dextrose (Dextrose 50% 50ML Syringe) 25-50ML OF 50% DW IV FOR... UD PRN IV 02/03/17 11:30 03/05/17 11:29 Glucagon (Glucagon Inj) 1 mg UD PRN SQ 02/03/17 11:30 03/05/17 11:29 Miscellaneous Information (Consult Glycemic Management Pharmacy) 1 ea UD PRN N/A 02/03/17 11:58 03/05/17 11:57 Insulin Glargine (Lantus Solostar Pen) 12 units Q12 SC 02/03/17 21:00 03/05/17 20:59 02/04/17 08:04 12 UNITS Enoxaparin Sodium (Lovenox Inj) 40 mg Q12H SQ 02/04/17 09:00 03/06/17 08:59
[2017-02-04] MEDS ORDERED: LIDODERM (LIDOCAINE) PATCH 5% TD ONE (09:54)
[2017-02-04] MEDS ORDERED: TRAMADOL HCL 50 MG TAB PO PRN (10:00)
--- NOTE | 2017-02-04 10:33 | Pharmacy Progress Note ---
Glycemic Control Progress Note Date of Service Feb 04, 2017. Scope Glycemic Pharmacist consulted for glycemic control to write orders per [facility] inpatient glycemic control protocol. Objective Accuchecks BSG (last 24hrs): Test 02/03/17 12:10 02/03/17 16:33 02/03/17 21:01 02/03/17 23:41 Bedside Glucose 155 mg/dl (70-99) 151 mg/dl (70-99) 122 mg/dl (70-99) 129 mg/dl (70-99) Test 02/04/17 05:09 02/04/17 06:03 Random Glucose 111 mg/dl (70-99) Bedside Glucose 102 mg/dl (70-99) HbA1c: Test 02/04/17 05:09 Hemoglobin A1c 10.1 % (4.5-5.6) H Recent Pertinent Medications The patient is currently receiving: * Basal insulin: Lantus 12 units every 12 hours * Correctional Insulin: Novolog Correction per scale ACHS Goal Range: Low 120 mg/dL - High 160 mg/dL Correction Factor: 30 mg/dL/unit * Prandial insulin: Per carb ratio of 1 unit per 10 grams CHO consumed * Oral Agents: None currently Outpatient Anti-Diabetic Meds Lantus 35 units SQ Q PM Novolog w/ meals Assessment & Plan ASSESSMENT: 02/04/17 * Poorly controlled type 2 diabetic (A1c 10.1%) admitted w/ neck pain following a fall at home, w/ hypercarbic resp failure following opiate administration * Glycemic control acceptable over the last 24 hours * BSG have fallen b/w 102-155 over the last 24 hours * Fasting BSG 102-111 w/ 12 units of basal insulin on board (one-half of ordered dose) * He is currently NPO. He may be at risk for hypoglycemia if NPO status continues and the Lantus dose is set too high. The current Lantus dose is only 0.18units/kg/day which is a fairly low dose. Will continue the same dose however add a scale to lessen the risk of hypoglycemia. PLAN FOR INPATIENT GLYCEMIC CONTROL: * Continuing Lantus SQ BID, 0 units if BSG less than 110, 6 units if BSG less than 110-139; 12 units if BSG 140 and above * Continuing correction factor 30 mg/dl/unit * Continuing carb ratio of 1 unit per 10 grams CHO consumed * Continuing goal range of Low 120 mg/dL - High 160 mg/dL RECOMMENDATIONS FOR DISCHARGE: * * Please note that the plan above was derived based on current level of insulin resistance and hospital stress. These recommendations are appropriate for inpatient admission only. Plan of care upon discharge will need to be reassessed to avoid potential outpatient hypo/hyperglycemia. Thank you.
[2017-02-04] MEDS ORDERED: VANCOMYCIN CONSULT ACTIVE PRN (10:48)
[2017-02-04] MEDS: LIDODERM (LIDOCAINE) PATCH 5% TD SCH (11:00)
[2017-02-04] MEDS ORDERED: VANCOMYCIN INJ 2,750 MG in SODIUM CHLORIDE 0.9% 500ML 500 ML IV ONE (11:15)
--- NOTE | 2017-02-04 11:41 | Critical Care Progress Note ---
Critical Care Progress Note Date of Service Feb 04, 2017. Attending Dr. Islas Subjective Patient was seen at the bedside. He was agitated yesterday night and was given Toradol 15mg around 10:00pm. Also started him on Precedex drip. This morning I was unable to wake him up. He didn't responded to verbal or physical stimulation, sedated. Objective General Appearance: well-appearing, no apparent distress, obese Head: normocephalic Eyes: no discharge ENT: oropharynx clear Neck: supple, no JVD Respiratory: breath sounds normal, clear to auscultation Cardiovasular: regular rate/rhythm, normal S1S2, no M/G/R Abdomen: obese, non tender, normal bowel sounds, no rebound Lower Extremities: no edema Neuro: sedated Assessment & Plan This is 75 yo male with hx of morbid obesity, DM, legally blind, s/p fall few days ago (not sure whether it is mechanical, ED note didn't mention) and presented to the ED with neck pain with no headache , LOC, chest pain, NV or cardiac arrhythmia reported. He was treated with Dilaudid for pain times two doses 2/1 mg respectively, he developed somnolence and coarse movement thought to be related to dystonic reaction and treated with Cogentin. Afterward the patient ended intubated due to persistent LOC, head CT and cervical CT were unremarkable. Patient is extubated yesterday and currently on 2L NC maintaining O2 sat. Neuro - * CAM ICU: Unable to perform * Altered Mental Status * RASS -5 (patient was sedated) * suspected multifactorial, medication (Dilaudid), hypoglycemia, hypercapnia * CT of head unremarkable * D/anastacio Precedex * Neck pain: * CT of cervical spine is unremarkable * Pain control with Toradol 15mg q6h prn and Tylenol 650mg q4h prn * D/anastacio all the narcotics * Possible central sleep apnea * To restore circadian rhythm patient started on Provigil am and BiPAP at night Cardiac - * EKG showed sinus rhythm with 1st degree AV block (no significant change from EKG on jan 2017) * Echo on 02/18/16 showed LVEF 55-60%, no wall abnormalities * Will resume metoprolol when patient able to PO * ASA 81mg daily when able to PO Respiratory - * Acute on chronic hypercapnic respiratory failure - resolved * Most likely 2/2 to combination of obesity hypoventilation syndrome and possible central sleep apnea * Patient was extubated yesterday * Continue supplement O2 as needed. * Currently on 2L NC * Continue BiPAP * Patient will need to have sleep study done * Pleural effusion * CXR showed small pleural effusion * Continue Lasix home dose * Monitor I/O and BMP GI - * Can't tolerated PO yet * Continue Protonix 40mg RENAL/LYTES - * Continue home dose of potassium supplement * Will Monitor daily and correct electrolytes appropriately. - * Osorio Catheter in place * Patient has chronic Osorio catheter * BPH * Continue home medications Flomax and Proscar ENDO - * DM type II * Lantus 12unit q12 * Monitor BSGs. ISS per protocol. * Last HgbA1c was 10.1 on 02/06/2017 HEME - * Hgb is 9.9, his baseline is 11-13 * Normal plt count and coag * Will monitor daily. ID - * UA showed large leuk esterase but neg nitrate. UCx no growth * D/anastacio zosyn given no growth on UCx * BCx NGTD DVT PROPHYLAXIS - * Lovenox 40mg BID Resident Physician Supervision Note: Dr. Barrientos was resident physician during care of patient. I separately evaluated patient and did history and exam. I discussed the case with the resident and generally agree with the findings and plan. Patient has been off vasoactive's for greater than 24 hours. No hemodynamic instability. Stable for downgrade out of ICU to telemetry status Documented By: Buzz Islas DO Consults & Procedures Consultants: wound care, glycemic control Procedures: none Data Medications: Current Inpatient Medications Medications (Trade) Dose Ordered Sig/Bj Route Start Time Stop Time Status Last Admin Dose Admin Modafinil (proVIGIL TAB) 100 mg QAM PO 02/03/17 10:00 03/05/17 09:59 02/04/17 08:06 100 MG Pantoprazole Sodium (Protonix Tab) 40 mg QAM PO 02/04/17 09:00 03/06/17 08:59 02/04/17 08:02 40 MG Aspirin (Ecotrin Tab) 81 mg DAILY PO 02/04/17 09:00 03/06/17 08:59 02/04/17 08:01 81 MG Finasteride (Proscar Tab) 5 mg QAM PO 02/04/17 09:00 03/06/17 08:59 02/04/17 08:02 5 MG Tamsulosin HCl (Flomax Cap) 0.4 mg QAM PO 02/04/17 09:00 03/06/17 08:59 02/04/17 08:02 0.4 MG Acetaminophen (Tylenol Tab) 650 mg Q4H PRN PO 02/03/17 11:30 03/05/17 11:29 Insulin Aspart (novoLOG ASPART) SLIDING SCALE If C... ACHS SC 02/03/17 16:00 03/05/17 15:59 Glucose (Glucose 40% Gel) 15-30 GRAMS 15 GRAMS... UD PRN PO 02/03/17 11:30 03/05/17 11:29 Glucose (Glucose Chew Tab) 4-8 Tablets 4 Tabl... UD PRN PO 02/03/17 11:30 03/05/17 11:29 Dextrose (Dextrose 50% 50ML Syringe) 25-50ML OF 50% DW IV FOR... UD PRN IV 02/03/17 11:30 03/05/17 11:29 Glucagon (Glucagon Inj) 1 mg UD PRN SQ 02/03/17 11:30 03/05/17 11:29 Miscellaneous Information (Consult Glycemic Management Pharmacy) 1 ea UD PRN N/A 02/03/17 11:58 03/05/17 11:57 Enoxaparin Sodium (Lovenox Inj) 40 mg Q12H SQ 02/04/17 09:00 03/06/17 08:59 Benztropine Mesylate (Cogentin Tab) 1 mg BID PO 02/04/17 21:00 03/06/17 20:59 Furosemide (Lasix Tab) 80 mg BID17 PO 02/04/17 17:00 03/06/17 16:59 Gabapentin (Neurontin Tab) 600 mg QID PO 02/04/17 13:00 03/06/17 12:59 Metolazone (Zaroxolyn Tab) 5 mg TuTh@0830 PO 02/05/17 08:30 03/07/17 08:29 Metoprolol Tartrate (Lopressor Tab) 12.5 mg BID PO 02/04/17 21:00 03/06/17 20:59 Nystatin (Mycostatin Powder) 1 appln TID EXT 02/04/17 14:00 03/06/17 13:59 Potassium Chloride (Klor-Con Tab) 40 meq BIDM PO 02/04/17 16:30 03/06/17 16:29 Tramadol HCl (Ultram Tab) 50 mg Q12H PRN PO 02/04/17 10:00 03/06/17 09:59 Venlafaxine HCl (effeXOR TAB) 75 mg BID PO 02/04/17 21:00 03/06/17 20:59 Ketorolac Tromethamine (Toradol Inj) 15 mg Q6H PRN IV. 02/04/17 10:00 02/09/17 09:59 Lidocaine (Lidoderm Patch 5%) 1 patch QAM TD 02/04/17 11:00 03/06/17 10:59 Miscellaneous (Remove Lidoderm Patch) 1 ea DAILY@21 N/A 02/04/17 21:00 03/06/17 20:59 Insulin Glargine (Lantus Solostar Pen) see protocol text Q12 SC 02/04/17 21:00 03/06/17 20:59 Vancomycin HCl (Consult) 1 ea UD PRN N/A 02/04/17 10:48 03/06/17 10:47 Vital Signs: Date Time Temp Pulse Resp B/P (MAP) Pulse Ox O2 Delivery O2 Flow Rate FiO2 02/04/17 10:00 66 18 148/76 (100) 98 Nasal Cannula 2.0 02/04/17 08:00 36.4 58 16 171/66 (101) 96 Nasal Cannula 3.0 02/04/17 08:00 2.0 02/04/17 06:00 54 15 123/56 (78) 96 Nasal Cannula 2.0 02/04/17 04:00 98 2.0 02/04/17 04:00 36.5 51 14 110/52 (71) 96 Nasal Cannula 2.0 02/04/17 02:00 54 16 126/62 (83) 96 Nasal Cannula 2.0 02/04/17 00:01 36.4 71 22 144/71 (95) 95 Nasal Cannula 2.0 02/03/17 23:59 96 2.0 02/03/17 22:00 68 22 155/50 (85) 99 Nasal Cannula 2.0 02/03/17 20:00 98 2.0 02/03/17 20:00 36.8 64 17 134/70 (91) 98 Nasal Cannula 2.0 02/03/17 18:00 63 20 127/59 (81) 98 Nasal Cannula 4.0 02/03/17 16:00 36.8 69 16 142/70 (94) 98 Nasal Cannula 4.0 02/03/17 16:00 4.0 02/03/17 14:00 112 16 141/70 (93) 95 Nasal Cannula 4.0 02/03/17 12:00 36.4 81 17 149/62 (91) 96 Nasal Cannula 4.0 02/03/17 12:00 96 4.0 Laboratory Results: Last 24 Hours Test 02/03/17 12:10 02/03/17 16:33 02/03/17 21:01 02/03/17 23:41 Bedside Glucose 155 mg/dl 151 mg/dl 122 mg/dl 129 mg/dl Test 02/04/17 05:09 02/04/17 06:03 White Blood Count 7.03 K/uL Red Blood Count 4.39 M/uL Hemoglobin 9.9 g/dL Hematocrit 33.4 % Mean Corpuscular Volume 76.1 fL Mean Corpuscular Hemoglobin 22.6 pg Mean Corpuscular Hemoglobin Concent 29.6 g/dl Platelet Count 229 K/uL Mean Platelet Volume 9.2 fL Neutrophils (%) (Auto) 67.2 % Lymphocytes (%) (Auto) 22.5 % Monocytes (%) (Auto) 6.3 % Eosinophils (%) (Auto) 3.8 % Basophils (%) (Auto) 0.1 % Neutrophils # (Auto) 4.72 K/uL Lymphocytes # (Auto) 1.58 K/uL Monocytes # (Auto) 0.44 K/uL Eosinophils # (Auto) 0.27 K/uL Basophils # (Auto) 0.01 K/uL RDW Standard Deviation 50.3 fL RDW Coefficient of Variation 18.0 % Immature Granulocyte % (Auto) 0.1 % Immature Granulocyte # (Auto) 0.01 K/uL Sodium Level 141 mmol/L Potassium Level 3.5 mmol/L Chloride Level 102 mmol/L Carbon Dioxide Level 32 mmol/L Anion Gap 7.0 mmol/L Blood Urea Nitrogen 13 mg/dl Creatinine 1.10 mg/dl Est Creatinine Clear Calc Drug Dose 81.4 ml/min Estimated GFR () 75.7 Estimated GFR (Non- 65.3 BUN/Creatinine Ratio 11.4 Random Glucose 111 mg/dl Estimated Average Glucose 243 mg/dl Hemoglobin A1c 10.1 % Calcium Level 8.3 mg/dl Phosphorus Level 3.3 mg/dl Magnesium Level 2.1 mg/dl Bedside Glucose 102 mg/dl
[2017-02-04] MEDS: GABAPENTIN 600 MG TAB PO SCH ×3 (12:50→20:15)
[2017-02-04] MEDS: NYSTATIN POWDER 15GM BTL EXT SCH ×2 (12:50→20:15)
[2017-02-04] MEDS: KETOROLAC TROMETHAMINE 15 MG/ML VIAL IV. PRN ×2 (12:57→21:13)
--- NOTE | 2017-02-04 14:42 | Pharmacy Progress Note ---
Pharmacy Abx Dose Short Note Date of Service Feb 04, 2017. Assessment & Plan Assessment * 76 year old male admitted for neck pain s/p fall along w/ mental status changes secondary to hypercarbic resp failure + hypoglycemia * Zosyn was initially initiated for possible UTI, however this was stopped by Critical Care Team today. Vancomycin is being ordered by the hospitalist team to treat skin/skin structure infection growing MRSA in outpt cultures Plan Vancomycin * Loading dose: 2750mg x 1 to quickly achieve a peak conc of 30-35mcg/mL * Maintenance dose: 150mg (~11.3mg/kg) IV Q 12 hours * Goal trough level for skin / skin structure infxn : 10 to 20 mcg/mL (prefer 15 -20mcg/mL if DORA of organism 1 or greater) * Trough level ordered for: 02/06/17 (with 4th maintenance dose) * P'kinetic estimates: Vd 0.55L/kg; half-life 9-10 hours; Guero ~0.072 hr-1 Pharmacy will continue to follow and will adjust dose/frequency as necessary. Thank you.
[2017-02-04] MEDS: FUROSEMIDE 80 MG TAB PO SCH (17:36)
[2017-02-04] MEDS: METOPROLOL TARTRATE 25 MG TAB PO SCH (20:16)
[2017-02-04] MEDS: VENLAFAXINE HCL 37.5 MG TAB PO SCH (20:16)
[2017-02-04] MEDS: BENZTROPINE MESYLATE 1 MG TAB PO SCH (20:19)
[2017-02-04] MEDS: VANCOMYCIN INJ 1,500 MG in SODIUM CHLORIDE 0.9% 500ML 500 ML IV SCH (23:37)
[2017-02-05 00:11] VITALS: O2SAT 91
[2017-02-05] MEDS: INSULIN ASPART 100 UNITS/ML 3 ML PEN SC SCH ×4 (07:00→21:30)
--- NOTE | 2017-02-05 07:12 | DIAGNOSTIC IMAGING REPORT ---
CHEST ONE VIEW PORTABLE HISTORY: 76 years-old Male altered mental status acute altered mental status. Follow-up exam. COMPARISON: Chest radiograph 02/04/2017 TECHNIQUE: Portable semiupright AP view of the chest FINDINGS: Cardiac silhouette is again moderately enlarged. Lungs are mildly hypoinflated with bronchovascular crowding. There is mild plantar vascular congestion without pneumothorax or pleural effusion. There is improved aeration of the bilateral lungs. There is minimal blunting of the bilateral costophrenic angles. Degenerative changes involve the shoulders. IMPRESSION: Cardiomegaly with pulmonary vascular congestion and improved aeration of the bilateral lungs. The above report was generated using voice recognition software. It may contain grammatical, syntax or spelling errors. Electronically signed by: jC Hemphill M.D. 02/05/2017 7:11 AM Dictated Date/Time: 02/05/2017 7:09 AM
[2017-02-05 08:00] VITALS: O2SAT 92
[2017-02-05 08:31] VITALS: BP 131/57; PULSE 75; TEMP 36.4; O2SAT 100
[2017-02-05 08:38] LABS: BASO % 0.2 %; BASO ABS # 0.01 K/uL (0-0.2); COMPLETE YES; EOS % 6.7 %; HEMATOCRIT 34.8 % (42-52); IG% 0.2 %; LYMPH % 34.3 %; MEAN CELL VOLUME 76.7 fL (80-100); MEAN CORPUSCULAR HEMOGLOBIN 22.2 pg (25-34); MEAN PLATELET VOLUME 9.2 fL (7.4-10.4); MONO % 8.3 %; NEUT % 50.3 %; PLATELET COUNT 249 K/uL (130-400); RED BLOOD COUNT 4.54 M/uL (4.7-6.1); WHITE BLOOD COUNT 6.12 K/uL (4.8-10.8)
[2017-02-05] MEDS: PANTOprazole SOD 40 MG TAB PO SCH (08:54)
[2017-02-05] MEDS: GABAPENTIN 600 MG TAB PO SCH ×4 (08:54→21:29)
[2017-02-05] MEDS: ASPIRIN 81 MG ECTAB PO SCH (08:54)
[2017-02-05] MEDS: NYSTATIN POWDER 15GM BTL EXT SCH ×3 (08:54→21:37)
[2017-02-05] MEDS: METOLAZONE 5 MG TAB PO SCH (08:55)
[2017-02-05] MEDS: POTASSIUM CHLORIDE 20 MEQ TABCR PO SCH ×2 (08:55→17:17)
[2017-02-05] MEDS: TAMSULOSIN HCL 0.4 MG CAP PO SCH (08:56)
[2017-02-05] MEDS: VENLAFAXINE HCL 37.5 MG TAB PO SCH ×2 (08:56→21:29)
[2017-02-05] MEDS: BENZTROPINE MESYLATE 1 MG TAB PO SCH ×2 (08:56→21:37)
[2017-02-05] MEDS: FINASTERIDE 5 MG TAB PO SCH (08:56)
[2017-02-05] MEDS: METOPROLOL TARTRATE 25 MG TAB PO SCH ×2 (08:57→21:28)
[2017-02-05] MEDS: FUROSEMIDE 80 MG TAB PO SCH ×2 (08:59→17:18)
[2017-02-05] MEDS: ENOXAPARIN 40 MG/0.4 ML SYR SQ SCH ×2 (09:01→21:27)
[2017-02-05] MEDS: LIDODERM (LIDOCAINE) PATCH 5% TD SCH (09:02)
[2017-02-05] MEDS: INSULIN GLARGINE SOLOSTAR 100 UNITS/ML 3 ML PEN SC SCH ×2 (09:06→21:31)
[2017-02-05] MEDS: MODAFINIL 100 MG TAB PO SCH (09:07)
[2017-02-05 09:13] LABS: BUN/CREATININE RATIO 9.7 (10-20); CALCIUM 8.6 mg/dl (8.5-10.1); CREATININE 1.3 mg/dl (0.60-1.40); POTASSIUM 3.8 mmol/L (3.5-5.1)
[2017-02-05 09:20] LABS: PHOSPHORUS 2.7 mg/dl (2.5-4.9)
[2017-02-05] MEDS: VANCOMYCIN INJ 1,500 MG in SODIUM CHLORIDE 0.9% 500ML 500 ML IV SCH ×2 (11:47→23:45)
[2017-02-05 15:20] VITALS: BP 113/55; PULSE 74; TEMP 36.4; O2SAT 95
--- NOTE | 2017-02-05 19:46 | Progress Note ---
Medicine Progress Note Date & Time of Visit: Feb 05, 2017 at 19:46. Subjective seen resting in bed, comfortable in good spirits denies headache, shortness of breath, chest pain no other symptoms Objective Last 8 Hrs Date Time Temp Pulse Resp B/P (MAP) Pulse Ox O2 Delivery O2 Flow Rate FiO2 02/05/17 15:20 36.4 74 16 113/55 (74) 95 Physical Exam: General- alert, oriented x 2, not in distress, speaks in sentences with no effort Eyes- anicteric Neck- supple, no JVD Lungs- clear breath sounds bilaterally Heart- regular rhythm; no murmur, normal rate Abdomen- obese, normal bowel sounds, soft, nontender linear open wound on the abdominal fold, no signs of infection Extremities- mild lower leg edema, mild hematoma anterior thighs, no calf tenderness (+) superficial wounds b/l inner thighs (+) healing wound on the right toe Neuro- alert, oriented x 3;no gross focal deficits Skin- warm & dry Laboratory Results: Last 24 Hours Test 02/04/17 20:38 02/05/17 00:43 02/05/17 07:48 02/05/17 08:16 Bedside Glucose 80 mg/dl 208 mg/dl 133 mg/dl White Blood Count 6.12 K/uL Red Blood Count 4.54 M/uL Hemoglobin 10.1 g/dL Hematocrit 34.8 % Mean Corpuscular Volume 76.7 fL Mean Corpuscular Hemoglobin 22.2 pg Mean Corpuscular Hemoglobin Concent 29.0 g/dl Platelet Count 249 K/uL Mean Platelet Volume 9.2 fL Neutrophils (%) (Auto) 50.3 % Lymphocytes (%) (Auto) 34.3 % Monocytes (%) (Auto) 8.3 % Eosinophils (%) (Auto) 6.7 % Basophils (%) (Auto) 0.2 % Neutrophils # (Auto) 3.08 K/uL Lymphocytes # (Auto) 2.10 K/uL Monocytes # (Auto) 0.51 K/uL Eosinophils # (Auto) 0.41 K/uL Basophils # (Auto) 0.01 K/uL RDW Standard Deviation 51.5 fL RDW Coefficient of Variation 18.4 % Immature Granulocyte % (Auto) 0.2 % Immature Granulocyte # (Auto) 0.01 K/uL Sodium Level 142 mmol/L Potassium Level 3.8 mmol/L Chloride Level 104 mmol/L Carbon Dioxide Level 30 mmol/L Anion Gap 8.0 mmol/L Blood Urea Nitrogen 13 mg/dl Creatinine 1.30 mg/dl Est Creatinine Clear Calc Drug Dose 67.3 ml/min Estimated GFR () 61.9 Estimated GFR (Non- 53.4 BUN/Creatinine Ratio 9.7 Random Glucose 133 mg/dl Calcium Level 8.6 mg/dl Phosphorus Level 2.7 mg/dl Magnesium Level 2.0 mg/dl Test 02/05/17 11:29 02/05/17 16:44 Bedside Glucose 172 mg/dl 157 mg/dl Assessment & Plan 75 year old male with history of CHF Diastolic Type, DM, HTN, GILLES, other problems noted below presenting with altered mental status. TOXIC/METABOLIC ENCEPHALOPATHY/ ALTERED MENTAL STATUS LIKELY FROM DILAUDID, HYPERCAPNEA, HYPOGLYCEMIA - resolved - no narcotics - s/p extubation - required Precedex - back to baseline ACUTE ON CHRONIC DIASTOLIC HEART FAILURE - given Lasix 60mg IV with good diuresis - resumed usual PO Lasix and Metolazone UTI, STREP - afebrile, no leukocytosis - on Vanco WOUND B/L INNER THIGH - (+) enterococcus - on Vanco NECK PAIN - CT cervical spine unrevealing - added PRN Toradol, Ofirmev - resolved DM 2 - on Insulin - Pharmacy Glycemic Control consult HTN - resumed usual Metoprolol GILLES - does not tolerate CPAP DVT PROPHYLAXIS SCDs Full Code DISPOSITION lives at home with PT/OT anticipate d/c home Current Inpatient Medications: Current Inpatient Medications Medications (Trade) Dose Ordered Sig/Bj Route Start Time Stop Time Status Last Admin Dose Admin Modafinil (proVIGIL TAB) 100 mg QAM PO 02/03/17 10:00 03/05/17 09:59 02/05/17 09:07 100 MG Pantoprazole Sodium (Protonix Tab) 40 mg QAM PO 02/04/17 09:00 03/06/17 08:59 02/05/17 08:54 40 MG Aspirin (Ecotrin Tab) 81 mg DAILY PO 02/04/17 09:00 03/06/17 08:59 02/05/17 08:54 81 MG Finasteride (Proscar Tab) 5 mg QAM PO 02/04/17 09:00 03/06/17 08:59 02/05/17 08:56 5 MG Tamsulosin HCl (Flomax Cap) 0.4 mg QAM PO 02/04/17 09:00 03/06/17 08:59 02/05/17 08:56 0.4 MG Acetaminophen (Tylenol Tab) 650 mg Q4H PRN PO 02/03/17 11:30 03/05/17 11:29 Insulin Aspart (novoLOG ASPART) SLIDING SCALE If C... ACHS SC 02/03/17 16:00 03/05/17 15:59 02/05/17 17:24 4 UNITS Glucose (Glucose 40% Gel) 15-30 GRAMS 15 GRAMS... UD PRN PO 02/03/17 11:30 03/05/17 11:29 Glucose (Glucose Chew Tab) 4-8 Tablets 4 Tabl... UD PRN PO 02/03/17 11:30 03/05/17 11:29 Dextrose (Dextrose 50% 50ML Syringe) 25-50ML OF 50% DW IV FOR... UD PRN IV 02/03/17 11:30 03/05/17 11:29 Glucagon (Glucagon Inj) 1 mg UD PRN SQ 02/03/17 11:30 03/05/17 11:29 Miscellaneous Information (Consult Glycemic Management Pharmacy) 1 ea UD PRN N/A 02/03/17 11:58 03/05/17 11:57 Enoxaparin Sodium (Lovenox Inj) 40 mg Q12H SQ 02/04/17 09:00 03/06/17 08:59 02/05/17 09:01 40 MG Benztropine Mesylate (Cogentin Tab) 1 mg BID PO 02/04/17 21:00 03/06/17 20:59 02/05/17 08:56 1 MG Gabapentin (Neurontin Tab) 600 mg QID PO 02/04/17 13:00 03/06/17 12:59 02/05/17 17:17 600 MG Metolazone (Zaroxolyn Tab) 5 mg TuTh@0830 PO 02/05/17 08:30 03/07/17 08:29 02/05/17 08:55 5 MG Metoprolol Tartrate (Lopressor Tab) 12.5 mg BID PO 02/04/17 21:00 03/06/17 20:59 02/05/17 08:57 12.5 MG Nystatin (Mycostatin Powder) 1 appln TID EXT 02/04/17 14:00 03/06/17 13:59 02/05/17 12:42 1 APPLN Potassium Chloride (Klor-Con Tab) 40 meq BIDM PO 02/04/17 16:30 03/06/17 16:29 02/05/17 17:17 40 MEQ Venlafaxine HCl (effeXOR TAB) 75 mg BID PO 02/04/17 21:00 03/06/17 20:59 02/05/17 08:56 75 MG Ketorolac Tromethamine (Toradol Inj) 15 mg Q6H PRN IV. 02/04/17 10:00 02/09/17 09:59 02/04/17 21:13 15 MG Lidocaine (Lidoderm Patch 5%) 1 patch QAM TD 02/04/17 11:00 03/06/17 10:59 02/05/17 09:02 1 PATCH Miscellaneous (Remove Lidoderm Patch) 1 ea DAILY@21 N/A 02/04/17 21:00 03/06/17 20:59 Insulin Glargine (Lantus Solostar Pen) see protocol text Q12 SC 02/04/17 21:00 03/06/17 20:59 02/05/17 09:06 6 UNITS Vancomycin HCl (Consult) 1 ea UD PRN N/A 02/04/17 10:48 03/06/17 10:47 Vancomycin HCl 1500 mg/Sodium Chloride 530 ml @ 200 mls/hr Q12H IV 02/05/17 00:00 02/15/17 00:00 02/05/17 11:47 200 MLS/HR Furosemide (Lasix Tab) 40 mg BID17 PO 02/06/17 09:00 03/06/17 16:59
[2017-02-05 21:20] VITALS: BP 156/78; PULSE 76
[2017-02-05] MEDS: KETOROLAC TROMETHAMINE 15 MG/ML VIAL IV. PRN (21:41)
[2017-02-05 23:15] VITALS: BP 139/66; PULSE 77; TEMP 36.6; O2SAT 93
[2017-02-06 07:36] VITALS: BP 156/77; PULSE 75; TEMP 36.5; O2SAT 92
[2017-02-06 07:48] LABS: BASO % 0.3 %; BASO ABS # 0.02 K/uL (0-0.2); COMPLETE YES; EOS % 7.2 %; HEMATOCRIT 35.4 % (42-52); IG% 0.3 %; LYMPH % 30.1 %; LYMPH ABS # 2.12 K/uL (1.2-3.4); MEAN CELL VOLUME 75.5 fL (80-100); MEAN CORPUSCULAR HEMOGLOBIN 22.2 pg (25-34); MEAN CORPUSCULAR HGB CONC 29.4 g/dl (32-36); MEAN PLATELET VOLUME 9.5 fL (7.4-10.4); MONO % 7.5 %; NEUT % 54.6 %; PLATELET COUNT 258 K/uL (130-400); RED BLOOD COUNT 4.69 M/uL (4.7-6.1); WHITE BLOOD COUNT 7.04 K/uL (4.8-10.8)
[2017-02-06 08:16] LABS: BUN/CREATININE RATIO 8.8 (10-20); CALCIUM 8.7 mg/dl (8.5-10.1); CREATININE 1.2 mg/dl (0.60-1.40); MAGNESIUM 1.7 mg/dl (1.8-2.4); PHOSPHORUS 2.5 mg/dl (2.5-4.9); POTASSIUM 3.2 mmol/L (3.5-5.1)
[2017-02-06] MEDS: NYSTATIN POWDER 15GM BTL EXT SCH ×3 (08:16→20:43)
[2017-02-06] MEDS: POTASSIUM CHLORIDE 20 MEQ TABCR PO SCH ×2 (08:16→16:36)
[2017-02-06] MEDS: BENZTROPINE MESYLATE 1 MG TAB PO SCH ×2 (08:17→20:43)
[2017-02-06] MEDS: ENOXAPARIN 40 MG/0.4 ML SYR SQ SCH ×2 (08:18→20:44)
[2017-02-06] MEDS: FINASTERIDE 5 MG TAB PO SCH (08:19)
[2017-02-06] MEDS: GABAPENTIN 600 MG TAB PO SCH ×4 (08:19→20:43)
[2017-02-06] MEDS: VENLAFAXINE HCL 37.5 MG TAB PO SCH ×2 (08:19→20:43)
[2017-02-06] MEDS: TAMSULOSIN HCL 0.4 MG CAP PO SCH (08:20)
[2017-02-06] MEDS: FUROSEMIDE 40 MG TAB PO SCH ×2 (08:20→16:36)
[2017-02-06] MEDS: ASPIRIN 81 MG ECTAB PO SCH (08:21)
[2017-02-06] MEDS: LIDODERM (LIDOCAINE) PATCH 5% TD SCH (08:26)
[2017-02-06] MEDS: INSULIN ASPART 100 UNITS/ML 3 ML PEN SC SCH ×4 (09:40→20:37)
[2017-02-06] MEDS: INSULIN GLARGINE SOLOSTAR 100 UNITS/ML 3 ML PEN SC SCH ×2 (09:41→20:47)
[2017-02-06] MEDS: METOPROLOL TARTRATE 25 MG TAB PO SCH ×2 (10:46→20:43)
[2017-02-06] MEDS: PANTOprazole SOD 40 MG TAB PO SCH (10:47)
[2017-02-06] MEDS: MODAFINIL 100 MG TAB PO SCH (10:50)
[2017-02-06] MEDS ORDERED: VANCOMYCIN TROUGH ONE (11:30)
[2017-02-06] MEDS ORDERED: MAGNESIUM OXIDE 400 MG TAB PO SCH (12:45)
[2017-02-06] MEDS ORDERED: POTASSIUM CHLORIDE 10 MEQ TABCR PO SCH (12:45)
--- NOTE | 2017-02-06 13:02 | Pharmacy Progress Note ---
Pharmacy Abx Dose Short Note Date of Service Feb 06, 2017. Assessment & Plan Assessment 76 year old male receiving vancomycin for treatment of MRSA skin infection Day # 6 of antimicrobial therapy. Plan Vancomycin * Trough level of 29.1 mcg/mL is supratherapeutic. * Hold dose x 10 hours then Change to 1500 mg IV every 18 hours (represents 35% dose reduction) * Goal trough level for cellulitis for MRSA skin infection : 15 to 20 mcg/mL * Trough ordered for: 02/08/17 prior to 10 am dose Pharmacy will continue to follow and will adjust dose/frequency as necessary. Thank you.
[2017-02-06 14:47] LABS: COD UR NEGATIVE NG/ML (CUTOFF=50); HYDROCOD UR NEGATIVE NG/ML (CUTOFF=50); HYDROMOR UR 408 NG/ML (CUTOFF=50); MORPHINE UR NEGATIVE NG/ML (CUTOFF=50); NORHYDROCODONE CONF UR NEGATIVE NG/ML (CUTOFF=50); OXYMORPH UR NEGATIVE NG/ML (CUTOFF=50)
[2017-02-06 15:18] VITALS: BP 110/58; PULSE 68; TEMP 36.6; O2SAT 90
--- NOTE | 2017-02-06 15:29 | Pharmacy Progress Note ---
Glycemic Control Progress Note Date of Service Feb 06, 2017. Scope Glycemic Pharmacist consulted for glycemic control to write orders per [facility] inpatient glycemic control protocol. Objective Accuchecks BSG (last 24hrs): Test 02/05/17 16:44 02/05/17 21:03 02/06/17 07:13 02/06/17 07:30 Bedside Glucose 157 mg/dl (70-99) 202 mg/dl (70-99) 141 mg/dl (70-99) Random Glucose 113 mg/dl (70-99) Test 02/06/17 11:45 Bedside Glucose 147 mg/dl (70-99) HbA1c: Test 02/04/17 05:09 Hemoglobin A1c 10.1 % (4.5-5.6) H Recent Pertinent Medications The patient is currently receiving: * Basal insulin: Lantus 6-12 units every 12 hours based on degree of hyperglycemia * Correctional Insulin: Novolog Correction per scale ACHS Goal Range: Low 110 mg/dL - High 140 mg/dL Correction Factor: 30 mg/dL/unit * Prandial insulin: Per carb ratio of 1 unit per 10 grams CHO consumed Assessment & Plan ASSESSMENT: * See progress note from 02/04 for more background info, in short: * Pt receiving SQ basal bolus insulin regimen for hyperglycemia secondary to baseline DM (outpatient regimen is SQ basal bolus),stress/infection, * Patient is currently receiving an average of 30 units of insulin per day * 18 units of basal insulin * 12 units of prandial/correctional insulin * BSGs ranging 133 - 202 mg/dl over the past 24hrs * Changes needed to insulin regimen: * AM Fasting BSG = 141 mg/dl. This is in goal range for patient based on inpatient targets and co-morbidities. No changes need made to basal insulin. Continue ~ 18-24 units/day * Post-prandial BSGs are elevated/BSGs rise throughout the day therefore need to tighten CF/CR PLAN FOR INPATIENT GLYCEMIC CONTROL: * Basal insulin * Lantus 6 units if BSG < 140 * Lantus 12 units if BSG 140 or above * Bolus insulin: tighten parameters * NovoLog per scale ACHS or Q6hrs while NPO * Goal Range: Low 110 mg/dL - High 140 mg/dL * Correction Factor: 20 mg/dL/unit * Nutritional / Prandial insulin per carb ratio of 1 unit per 6 grams CHO consumed * Please note that the plan above was derived based on current level of insulin resistance and hospital stress. These recommendations are appropriate for inpatient admission only. Plan of care upon discharge will need to be reassessed to avoid potential outpatient hypo/hyperglycemia. Thank you.
--- NOTE | 2017-02-06 16:18 | Progress Note ---
Medicine Progress Note Date & Time of Visit: Feb 06, 2017 at 15:56. Subjective patient seen resting in bed, sleeping but easily rousable alert, oriented x 3, answering all questions appropriately denies confusion, hallucinations denies dyspnea, chest pain, palpitations, dizziness pain on the wound sites improving denies other symptoms states he is back to baseline states he is ready and would like to be discharged home today Objective Last 8 Hrs Date Time Temp Pulse Resp B/P (MAP) Pulse Ox O2 Delivery O2 Flow Rate FiO2 02/06/17 15:18 36.6 68 20 110/58 (75) 90 Nasal Cannula 2.0 Physical Exam: General- alert, oriented x 2, not in distress, speaks in sentences with no effort Eyes- anicteric Neck- no JVD Lungs- clear breath sounds bilaterally, no rales/wheezes bilaterally Heart- regular rhythm; no murmur, normal rate Abdomen- obese, normal bowel sounds, soft, nontender linear open wound on the abdominal fold, no signs of infection Extremities- no edema, mild hematoma anterior thighs- resolving, no calf tenderness (+) superficial wounds b/l inner thighs/buttock area: no discharge, surrounding mild erythema (+) healing wound on the right toe: no open area, no discharge, no tenderness Neuro- alert, oriented x 3;no gross focal deficits Skin- warm & dry Laboratory Results: Last 24 Hours Test 02/05/17 16:44 02/05/17 21:03 02/06/17 07:13 02/06/17 07:30 Bedside Glucose 157 mg/dl 202 mg/dl 141 mg/dl White Blood Count 7.04 K/uL Red Blood Count 4.69 M/uL Hemoglobin 10.4 g/dL Hematocrit 35.4 % Mean Corpuscular Volume 75.5 fL Mean Corpuscular Hemoglobin 22.2 pg Mean Corpuscular Hemoglobin Concent 29.4 g/dl Platelet Count 258 K/uL Mean Platelet Volume 9.5 fL Neutrophils (%) (Auto) 54.6 % Lymphocytes (%) (Auto) 30.1 % Monocytes (%) (Auto) 7.5 % Eosinophils (%) (Auto) 7.2 % Basophils (%) (Auto) 0.3 % Neutrophils # (Auto) 3.84 K/uL Lymphocytes # (Auto) 2.12 K/uL Monocytes # (Auto) 0.53 K/uL Eosinophils # (Auto) 0.51 K/uL Basophils # (Auto) 0.02 K/uL RDW Standard Deviation 50.0 fL RDW Coefficient of Variation 18.1 % Immature Granulocyte % (Auto) 0.3 % Immature Granulocyte # (Auto) 0.02 K/uL Sodium Level 143 mmol/L Potassium Level 3.2 mmol/L Chloride Level 103 mmol/L Carbon Dioxide Level 33 mmol/L Anion Gap 7.0 mmol/L Blood Urea Nitrogen 11 mg/dl Creatinine 1.20 mg/dl Est Creatinine Clear Calc Drug Dose 72.8 ml/min Estimated GFR () 68.1 Estimated GFR (Non- 58.8 BUN/Creatinine Ratio 8.8 Random Glucose 113 mg/dl Calcium Level 8.7 mg/dl Phosphorus Level 2.5 mg/dl Magnesium Level 1.7 mg/dl Test 02/06/17 11:36 02/06/17 11:45 02/06/17 15:46 Vancomycin Level Trough 29.1 mcg/ml Bedside Glucose 147 mg/dl 109 mg/dl Assessment & Plan 75 year old male with history of CHF Diastolic Type, DM, HTN, GILLES, other problems noted below presenting with altered mental status. TOXIC/METABOLIC ENCEPHALOPATHY/ ALTERED MENTAL STATUS LIKELY FROM DILAUDID, HYPERCAPNEA, HYPOGLYCEMIA - resolved - was intubated overnight - post extubation, required short term Precedex due to agitation - back to baseline ACUTE ON CHRONIC DIASTOLIC HEART FAILURE - given Lasix 60mg IV with good diuresis - resumed usual PO Lasix and Metolazone - now euvolemic CHF instructions given WOUND B/L INNER THIGH - (+) enterococcus faecalis, coag neg staph: sensitive to ampicillin/penicillin , Vanco - Wound Care [facility] consulted - was placed on Vanco IV x 3 days - discharge on Augmentin x 7 days to complete total of 7 days antibiotics continue to ff up with Wound Care [facility] and PCP UTI, ENTEROCOCCUS FAECALIS - afebrile, no leukocytosis - urine culture: Enterococcus faecalis resistant to fluoroquinolones, sensitive to Ampicillin and Vancomycin - possible colonization - was placed on Vanco IV x 3 days - discharge on Augmentin x 4 days to complete total of 7 days antibiotics NECK PAIN - CT cervical spine unrevealing - added PRN Toradol, Ofirmev - resolved DM 2 - A1C 10.1 - continue usual Insulin regimen at home outpatient follow up re: Insulin adjustments HTN - continue usual Metoprolol GILLES - does not tolerate CPAP MORBID OBESITY - uses wheelchair to mobilize DVT PROPHYLAXIS SCDs Full Code DISPOSITION d/c home with home health services from the ID lives with - tried to call re: update and discharge plans, awaiting call back ff up with PCP in 3-5 days ff up with Wound Care Services in 1 week Current Inpatient Medications: Current Inpatient Medications Medications (Trade) Dose Ordered Sig/Bj Route Start Time Stop Time Status Last Admin Dose Admin Modafinil (proVIGIL TAB) 100 mg QAM PO 02/03/17 10:00 03/05/17 09:59 02/06/17 10:50 100 MG Pantoprazole Sodium (Protonix Tab) 40 mg QAM PO 02/04/17 09:00 03/06/17 08:59 02/06/17 10:47 40 MG Aspirin (Ecotrin Tab) 81 mg DAILY PO 02/04/17 09:00 03/06/17 08:59 02/06/17 08:21 81 MG Finasteride (Proscar Tab) 5 mg QAM PO 02/04/17 09:00 03/06/17 08:59 02/06/17 08:19 5 MG Tamsulosin HCl (Flomax Cap) 0.4 mg QAM PO 02/04/17 09:00 03/06/17 08:59 02/06/17 08:20 0.4 MG Acetaminophen (Tylenol Tab) 650 mg Q4H PRN PO 02/03/17 11:30 03/05/17 11:29 Insulin Aspart (novoLOG ASPART) SLIDING SCALE If C... ACHS SC 02/03/17 16:00 03/05/17 15:59 02/06/17 12:54 1 UNITS Glucose (Glucose 40% Gel) 15-30 GRAMS 15 GRAMS... UD PRN PO 02/03/17 11:30 03/05/17 11:29 Glucose (Glucose Chew Tab) 4-8 Tablets 4 Tabl... UD PRN PO 02/03/17 11:30 03/05/17 11:29 Dextrose (Dextrose 50% 50ML Syringe) 25-50ML OF 50% DW IV FOR... UD PRN IV 02/03/17 11:30 03/05/17 11:29 Glucagon (Glucagon Inj) 1 mg UD PRN SQ 02/03/17 11:30 03/05/17 11:29 Miscellaneous Information (Consult Glycemic Management Pharmacy) 1 ea UD PRN N/A 02/03/17 11:58 03/05/17 11:57 Enoxaparin Sodium (Lovenox Inj) 40 mg Q12H SQ 02/04/17 09:00 03/06/17 08:59 02/06/17 08:18 40 MG Benztropine Mesylate (Cogentin Tab) 1 mg BID PO 02/04/17 21:00 03/06/17 20:59 02/06/17 08:17 1 MG Gabapentin (Neurontin Tab) 600 mg QID PO 02/04/17 13:00 03/06/17 12:59 02/06/17 13:02 600 MG Metolazone (Zaroxolyn Tab) 5 mg TuTh@0830 PO 02/05/17 08:30 03/07/17 08:29 02/05/17 08:55 5 MG Metoprolol Tartrate (Lopressor Tab) 12.5 mg BID PO 02/04/17 21:00 03/06/17 20:59 02/06/17 10:46 12.5 MG Nystatin (Mycostatin Powder) 1 appln TID EXT 02/04/17 14:00 03/06/17 13:59 02/06/17 13:02 1 APPLN Potassium Chloride (Klor-Con Tab) 40 meq BIDM PO 02/04/17 16:30 03/06/17 16:29 02/06/17 08:16 40 MEQ Venlafaxine HCl (effeXOR TAB) 75 mg BID PO 02/04/17 21:00 03/06/17 20:59 02/06/17 08:19 75 MG Ketorolac Tromethamine (Toradol Inj) 15 mg Q6H PRN IV. 02/04/17 10:00 02/09/17 09:59 02/05/17 21:41 15 MG Lidocaine (Lidoderm Patch 5%) 1 patch QAM TD 02/04/17 11:00 03/06/17 10:59 02/06/17 08:26 1 PATCH Miscellaneous (Remove Lidoderm Patch) 1 ea DAILY@21 N/A 02/04/17 21:00 03/06/17 20:59 Insulin Glargine (Lantus Solostar Pen) see protocol text Q12 SC 02/04/17 21:00 03/06/17 20:59 02/06/17 09:41 12 UNITS Vancomycin HCl (Consult) 1 ea UD PRN N/A 02/04/17 10:48 03/06/17 10:47 Furosemide (Lasix Tab) 40 mg BID17 PO 02/06/17 09:00 03/06/17 16:59 02/06/17 08:20 40 MG Magnesium Oxide (Mag-Ox Tab) 400 mg BID PO 02/06/17 21:00 03/08/17 20:59 Vancomycin HCl 1500 mg/Sodium Chloride 530 ml @ 200 mls/hr Q18H IV 02/06/17 22:00 02/15/17 21:59
[2017-02-06] MEDS ORDERED: FRS/40 PO (17:25)
[2017-02-06] MEDS ORDERED: INSDGIPEN SC (17:25)
[2017-02-06] MEDS ORDERED: PRV100 PO (17:25)
[2017-02-06] MEDS ORDERED: MGNO400 PO (17:25)
[2017-02-06] MEDS ORDERED: INSU1INJ2 SC (17:25)
[2017-02-06] MEDS ORDERED: AMOX875T PO (17:26)
[2017-02-06] MEDS ORDERED: DXY100 PO (17:26)
[2017-02-06] MEDS ORDERED: LACT10CA3 PO (17:31)
--- NOTE | 2017-02-06 17:35 | Discharge Instructions ---
Discharge Instructions Date of Service Feb 06, 2017. Admission Reason for Admission: Altered Mental Status Discharge Discharge Diagnosis / Problem: ALTERED MENTAL STATUS Discharge Goals Goal(s): Diagnostic testing, Therapeutic intervention Activity Recommendations Activity Limitations: as noted below (INCREASE ACTIVITY GRADUALLY TOLERATED) . Instructions / Follow-Up Instructions / Follow-Up PLEASE REVIEW YOUR NEW MEDICATION LIST AND FOLLOW INSTRUCTIONS CAREFULLY. USE INSULIN ASPART WITH MEALS AND FOLLOW THE SLIDING SCALE BELOW FOR DOSING: For Blood Sugar 180-220, give 2 units Insulin Aspart For Blood Sugar 221-260, give 4 units Insulin Aspart For Blood Sugar 261-300, give 6 units Insulin Aspart For Blood Sugar more than 300, give 8 units of Insulin Aspart and call your Primary Care Physician immediately LIMIT YOUR TOTAL DAILY FLUID INTAKE TO NO MORE THAN 2 LITERS OR 8 CUPS A DAY. CALL PRIMARY CARE PHYSICIAN OR RETURN TO ER IMMEDIATELY IF WITH WORSENING OF SYMPTOMS, CONFUSION, FEVER/CHILLS, INCREASING REDNESS/DISCHARGE/PAIN ON THE WOUND SITES , SHORTNESS OF BREATH, INCREASING LEG SWELLING. FOLLOW UP WITH DR. JOHNSON ON SATURDAY FEBRUARY 11, 2017 AT 10:00AM. IF DR. DESAI WILL HAVE AN OPENING, THE CLINIC WILL CALL YOU FOR THE APPOINTMENT DATE. FOLLOW UP WITH THE WOUND CARE CENTER IN 1 WEEK. Call your Primary Care doctor if any of the following symptoms or problems start or get worse: * Shortness of breath or difficulty breathing * Wake up at night short of breath * Chest pain * Cough * Swelling of your hands, feet, or legs * More fatigued or tired with your normal activity * Palpitations - sudden fast heart beats WEIGHT * Weigh yourself every morning after using the bathroom. * Use the same scale. * Wear the same amount of clothing. * Write your weight down on a chart. * Call your Primary Care doctor if you gain more than 2-3 pounds in 1-2 days. MEDICATIONS * Use this discharge instruction sheet for medication instructions. * Take your medications at the time your doctor ordered. * Do not skip a dose of your medicines. * If you miss a dose of medicine, take it as soon as possible, but DO NOT DOUBLE A DOSE. * Read your medicine information when you get home. * Know all of the side effects of your medicine. If in doubt, ask your pharmacist * Call your Primary Care doctor's office if you have any side effects. * Be sure all of your doctors know what medicine and herbs you take (including cold, flu, and herbal medicine). Take the following with you to your follow-up doctor appointments: * Weight Chart * Medication List * List of questions Do not drink excessive alcohol, beer or wine. Current Hospital Diet Patient's current hospital diet: Diabetes Type 2 Diet, AHA Diet (Heart Healthy) Discharge Diet Recommended Diet: AHA Diet (Heart Healthy), Diabetes Type 2 Diet Fluid Restriction: 2000 ml (8 cups) Procedures Procedures Performed: MECHANICAL VENTILATIN, CT SCAN OF THE CERVICAL SPINE, CT SCAN OF THE HEAD Pending Studies Studies pending at discharge: yes List of pending studies: REPEAT BLOOD WORK C/O PRIMARY CARE PHYSICIAN Laboratory Results Hemoglobin A1c Test 02/04/17 05:09 Range/Units Estimated Average Glucose 243 mg/dl Hemoglobin A1c 10.1 H 4.5-5.6 % Medical Emergencies . Who to Call and When: Call 911 or go to the Emergency Room if: * If at any time you feel your situation is an emergency * You have tightness or pain in your chest that does not go away with rest or Nitroglycerin * You are very short of breath even with rest . Non-Emergent Contact Non-Emergency issues call your: Primary Care Provider Call Non-Emergent contact if: you have a fever, your pain is not controlled, your pain is worsening, wound has increased drainage, wound has increased redness, wound has increased pain, you have any medication questions . . "Provider Documentation" section prepared by Fer Beltran. . VTE Core Measure Inpt VTE Proph given/why not?: Enoxaparin (Lovenox)SQ, SCD's
--- NOTE | 2017-02-06 17:51 | Discharge Summary ---
Discharge Summary Date of Service Feb 06, 2017. Discharge Summary Admission Date: Feb 03, 2017 at 06:15 Discharge Date: Feb 06, 2017 Discharge Disposition: Home with services Principal Diagnosis: ALTERED MENTAL STATUS LIKELY FROM DILAUDID, HYPERCAPNEA, HYPOGLYCEMIA Secondary Diagnoses/Problems: PLEASE REFER TO HOSPITAL COURSE BELOW. Procedures: HEAD WITHOUT CONTRAST (CT) CT DOSE: 767.83 mGy.cm HISTORY: Mental status change Evaluate Fever/Sepsis TECHNIQUE: Multiaxial CT images of the head were performed without the use of intravenous contrast. A dose lowering technique was utilized adhering to the principles of ALARA. Comparison: 02/17/2016 Findings: The paranasal sinuses and mastoid air cells are clear. Mild cerebellar as well as cerebral atrophy. Mild chronic small vessel change of aging. No acute intracranial hemorrhage. The ventricular system is midline. Impression: Age-related change. No acute process. CERVICAL SPINE W/O CT DOSE: 515.22 mGy.cm HISTORY: Trauma fall, neck pain TECHNIQUE: Multiaxial CT images of the cervical spine were performed and reformatted in the sagittal and coronal plane without the use of contrast. A dose lowering technique was utilized adhering to the principles of ALARA. COMPARISON: None. FINDINGS: Significant degenerative disc change throughout the entire cervical region. No evidence for an acute compression deformity. Degenerative changes C1-C2 complex. Endotracheal tube in position. Mild prevertebral soft tissue edematous change with a trace amount of soft tissue air possibly on the basis of a traumatic intubation. IMPRESSION: Severe degenerative change. No acute bony abnormality. Endotracheal tube within the trachea CHEST ONE VIEW PORTABLE 02/05/17 HISTORY: 76 years-old Male altered mental status acute altered mental status. Follow-up exam. COMPARISON: Chest radiograph 02/04/2017 TECHNIQUE: Portable semiupright AP view of the chest FINDINGS: Cardiac silhouette is again moderately enlarged. Lungs are mildly hypoinflated with bronchovascular crowding. There is mild plantar vascular congestion without pneumothorax or pleural effusion. There is improved aeration of the bilateral lungs. There is minimal blunting of the bilateral costophrenic angles. Degenerative changes involve the shoulders. IMPRESSION: Cardiomegaly with pulmonary vascular congestion and improved aeration of the bilateral lungs. Consultations: [facility] MOLD DR. CHI Pending Studies/Follow-Up: PLEASE REFER TO HOSPITAL COURSE BELOW. Medication Reconciliation New Medications: Amoxicillin & Pot Clavulanate (Augmentin 875-125 mg) 1 Tab Tab 875 MG PO BID for 4 Days, #8 TAB Doxycycline Hyclate (Doxycycline Hyclate) 100 Mg Cap 1 CAP PO BID for 4 Days, #8 CAP 0 Refills Insulin Aspart (Novolog Penfill) 100 Unit/Ml Inj 1 UNIT SC AC PRN for hyperglycemia for 30 Days check patient's blood glucose before meals (3x a day) and follow sliding scale: For Blood Sugar 180-220, give 2 units Insulin Aspart For Blood Sugar 221-260, give 4 units Insulin Aspart For Blood Sugar 261-300, give 6 units Insulin Aspart For Blood Sugar more than 300, give 8 units of Insulin Aspart and call your Primary Care Physician immediately Lactobacillus-Inulin (Culturelle) 1 Cap Cap 1 CAP PO DAILY for 14 Days, #14 CAP 2 Refills Magnesium Oxide (Magnesium-Oxide) 400 Mg Tab 400 MG PO DAILY for 7 Days, #7 TAB 0 Refills Modafinil (Modafinil) 100 Mg Tab 100 MG PO QAM for 15 Days, #15 TAB 0 Refills Changed Medications: Furosemide (Lasix) 40 Mg Tab 1 TAB PO BID for 30 Days, 0 Refills (Changed from: 2 TAB) Insulin Glargine (Lantus Solostar) 100 Unit/Ml Inj 20 UNITS SC QPM for 30 Days (Changed from: 35 ) do not give if patient's blood sugar is less than 110 Continued Medications: Aspirin (Aspirin Ec) 81 Mg Tab 81 MG PO DAILY Finasteride (Proscar) 5 Mg Tab 5 MG PO QAM, 0 Refills Folic Acid (Folic Acid) 400 Mcg Tab 400 MCG PO QAM Gabapentin (Neurontin) 300 Mg Cap 600 MG PO QID, CAP Metolazone (Zaroxolyn) 5 Mg Tab 5 MG PO 2XWK 1/2 hour prior to AM dose of Furosemide. PATIENT TAKES TUES AND TH Metoprolol Tartrate (Lopressor) (Lopressor) 25 Mg Tab 12.5 MG PO BID, TAB Multivitamin (Multivitamin) Tab 1 TAB PO DAILY, TAB Nystatin (Topical) (Nyata) 100,000 Unit/Gm Pow 1 APPL TOP TID apply topically within skin folds as directed three times daily Nystatin-Triamcinolone (Nystatin/Triamcinolone) 1 Cre Cre 1 APPLN TOP BID, #15 GM 1 Refill Apply to groin and perineal area twice daily. Ocuvite Preservision (Ocuvite Preservision) 1 Tab Tab 1 TAB PO DAILY, TAB Omeprazole (Prilosec) 20 Mg Capcr 20 MG PO QAM Potassium Ext Rel (Klor-Con) 20 Meq Tabcr 40 MEQ PO BID Simvastatin (Zocor) 40 Mg Tab 40 MG PO HS Tamsulosin HCl (Tamsulosin HCl) 0.4 Mg Cap 1 CAP PO HS Venlafaxine Hcl (Effexor) 75 Mg Tab 75 MG PO BID Discontinued Medications: Insulin Aspart (Novolog Flexpen) 100 Units/Ml Inj 8 UNITS SC QAM Insulin Aspart (Novolog Flexpen) 100 Units/Ml Inj 12 UNITS SC BID Tramadol (Ultram) 50 Mg Tab 50 MG PO Q12H PRN for Pain, TAB Admission Information HPI (per Admitting provider): 75 YO male followed by Dr. Syed Desai for Family Medicine. History of sleep apnea, obesity hypoventilation syndrome, diabetes, and other problems noted below. Presented to ED last evening complaining of neck pain. He had fallen a few days prior. Initially received IV ketorolac for pain without much benefit. Subsequently received hydromorphone 2 mg IM. Received a dose of Cogentin for possible dystonic reaction. Received a second dose of hydromorphone [address] head and cervical spine attempted, but could not be performed and patient declined further attempts. Arrangements were made for discharge to home and transportation was requested. Patient found to be somnolent and confused around 02:00. He was shouting and restless. Blood sugars was 55; glucose was administered without improvement of mental status. ABG demonstrated hypercapnia with pCO2 of 64. Placed on BiPAP without improvement of ABG or mental status. He was intubated; received etomidate and vecuronium for intubation. Unresponsive at time of my assessment around 06:00. . Physical Exam (per Admitting): General Appearance: + obese, + pertinent finding (unresponsive on vent) Head: normocephalic, atraumatic Eyes: PERRL, EOMI, sclerae normal (conjunctive pink) ENT: + pertinent finding (oral ET tube) Respiratory/Chest: lungs clear, no respiratory distress ((paralyzed on vent) ) Cardiovascular: regular rate, rhythm, no murmur, + JVD, + abnormal peripheral pulses (pedal pulses dimished), + pertinent finding (1+ pretibial and pedal edema) Abdomen/GI: normal bowel sounds, non tender, soft, no organomegaly (exam limited), no pulsatile mass, + pertinent finding (obese) Genitourinary - Male: + pertinent finding (Osorio cath) Extremities/Musculoskelatal: no calf tenderness, + pedal edema Neurologic/Psych: + pertinent finding (paralyzed; pupils 2 mm; no spontaneous movements; no response to voice or noxious stimuli; plantar reflexes downgoing) Skin: normal color, warm/dry, + pertinent finding (shallow ulcers medial right great toe and medial right 2nd toe) Lymphatic: no adenopathy (cervical) Hospital Course 75 year old male with history of CHF Diastolic Type, DM, HTN, GILLES, other problems noted below presenting with altered mental status. TOXIC/METABOLIC ENCEPHALOPATHY LIKELY FROM DILAUDID, HYPERCAPNEA, HYPOGLYCEMIA - resolved - received IM Dilaudid, and was found to be hypoglycemi at the ER - was intubated overnight, admitted to ICU - post extubation, required short term Precedex due to agitation - back to baseline - no narcotics management of hypoglycemia noted below ACUTE ON CHRONIC DIASTOLIC HEART FAILURE - CXR on admission also showing CHF exacerbation - given Lasix 60mg IV with good diuresis - resumed usual PO Lasix and Metolazone - now euvolemic CHF instructions given, emphasized fluid restriction and low Na diet INFECTED WOUNDS, B/L INNER THIGH - (+) enterococcus faecalis, coag neg staph: sensitive to ampicillin/penicillin , Vanco - Wound Care S[facility] consulted - was placed on Vanco IV x 3 days - discharge on Augmentin x 7 days to complete total of 7 days antibiotics continue to ff up with Wound Care S[facility] and PCP UTI, ENTEROCOCCUS FAECALIS - afebrile, no leukocytosis - urine culture: Enterococcus faecalis resistant to fluoroquinolones, sensitive to Ampicillin and Vancomycin - possible colonization - was placed on Vanco IV x 3 days - discharge on Augmentin x 4 days to complete total of 7 days antibiotics RIGHT TOE HEALING WOUND - grew MRSA on wound culture 01/23/17 - improving continue with Doxycycline 100mg BID x 4 days monitor NECK PAIN - CT cervical spine unrevealing - added PRN Toradol, Ofirmev - resolved DM 2 - A1C 10.1 - patient's states patient has been controlling his diet better for the past 2 weeks BSGs at home is usually at 120-130s, patient's is concerned about occasional hypoglycemia patient admitted to ER with BSG 50s - recommend to reduce Lantus to 20 units at HS and utilize Aspart Sliding Scale with meals discussed at length with , advised to record BSGs and Insulin Doses given and provide PCP copy of the readings she verbalized that she is comfortable, understanding and agreeable with plan of care - monitor BSGs and A1c as outpatient HTN - continue usual Metoprolol GILLES - encouraged to use CPAP - Provigil started by Project Intern Dr. Chi, as patient may be having Central Sleep Apnea monitor response, only given 2 weeks prescription MILD HYPOKALEMIA AND HYPOMAGNESEMIA - on PO K and Mg - repeat K and Mg on ff up with PCP MORBID OBESITY - uses wheelchair to mobilize DVT PROPHYLAXIS SCDs, Lovenox Full Code DISPOSITION d/c home with [place] health services [place] ff up with PCP in 3-5 days ff up with Wound Care Services in 1 week case discussed at length and in detail with patient's she is agreeable, and understanding with plan of care Total time spent on discharge = 60 minutes This includes examination of the patient, discharge planning, medication reconciliation, and communication with other providers. Discharge Instructions Discharge Instructions Date of Service Feb 06, 2017. Admission Reason for Admission: Altered Mental Status Discharge Discharge Diagnosis / Problem: ALTERED MENTAL STATUS Discharge Goals Goal(s): Diagnostic testing, Therapeutic intervention Activity Recommendations Activity Limitations: as noted below (INCREASE ACTIVITY GRADUALLY TOLERATED) . Instructions / Follow-Up Instructions / Follow-Up PLEASE REVIEW YOUR NEW MEDICATION LIST AND FOLLOW INSTRUCTIONS CAREFULLY. USE INSULIN ASPART WITH MEALS AND FOLLOW THE SLIDING SCALE BELOW FOR DOSING: For Blood Sugar 180-220, give 2 units Insulin Aspart For Blood Sugar 221-260, give 4 units Insulin Aspart For Blood Sugar 261-300, give 6 units Insulin Aspart For Blood Sugar more than 300, give 8 units of Insulin Aspart and call your Primary Care Physician immediately LIMIT YOUR TOTAL DAILY FLUID INTAKE TO NO MORE THAN 2 LITERS OR 8 CUPS A DAY. CALL PRIMARY CARE PHYSICIAN OR RETURN TO ER IMMEDIATELY IF WITH WORSENING OF SYMPTOMS, CONFUSION, FEVER/CHILLS, INCREASING REDNESS/DISCHARGE/PAIN ON THE WOUND SITES , SHORTNESS OF BREATH, INCREASING LEG SWELLING. FOLLOW UP WITH DR. JOHNSON ON SATURDAY FEBRUARY 11, 2017 AT 10:00AM. IF DR. DESAI WILL HAVE AN OPENING, THE CLINIC WILL CALL YOU FOR THE APPOINTMENT DATE. FOLLOW UP WITH THE WOUND CARE CENTER IN 1 WEEK. Call your Primary Care doctor if any of the following symptoms or problems start or get worse: * Shortness of breath or difficulty breathing * Wake up at night short of breath * Chest pain * Cough * Swelling of your hands, feet, or legs * More fatigued or tired with your normal activity * Palpitations - sudden fast heart beats WEIGHT * Weigh yourself every morning after using the bathroom. * Use the same scale. * Wear the same amount of clothing. * Write your weight down on a chart. * Call your Primary Care doctor if you gain more than 2-3 pounds in 1-2 days. MEDICATIONS * Use this discharge instruction sheet for medication instructions. * Take your medications at the time your doctor ordered. * Do not skip a dose of your medicines. * If you miss a dose of medicine, take it as soon as possible, but DO NOT DOUBLE A DOSE. * Read your medicine information when you get home. * Know all of the side effects of your medicine. If in doubt, ask your pharmacist * Call your Primary Care doctor's office if you have any side effects. * Be sure all of your doctors know what medicine and herbs you take (including cold, flu, and herbal medicine). Take the following with you to your follow-up doctor appointments: * Weight Chart * Medication List * List of questions Do not drink excessive alcohol, beer or wine. Current Hospital Diet Patient's current hospital diet: Diabetes Type 2 Diet, AHA Diet (Heart Healthy) Discharge Diet Recommended Diet: AHA Diet (Heart Healthy), Diabetes Type 2 Diet Fluid Restriction: 2000 ml (8 cups) Procedures Procedures Performed: MECHANICAL VENTILATIN, CT SCAN OF THE CERVICAL SPINE, CT SCAN OF THE HEAD Pending Studies Studies pending at discharge: yes List of pending studies: REPEAT BLOOD WORK C/O PRIMARY CARE PHYSICIAN
[2017-02-06 20:30] VITALS: BP 167/72; PULSE 73
[2017-02-06] MEDS: MAGNESIUM OXIDE 400 MG TAB PO SCH (20:43)
[2017-02-06] MEDS: VANCOMYCIN INJ 1,500 MG in SODIUM CHLORIDE 0.9% 500ML 500 ML IV SCH (22:06)
[2017-02-06 23:32] VITALS: BP 129/75; PULSE 70; TEMP 36.5; O2SAT 92
[2017-02-07 05:49] LABS: BASO % 0.2 %; BASO ABS # 0.02 K/uL (0-0.2); COMPLETE YES; IG% 0.4 %; LYMPH % 27.1 %; LYMPH ABS # 2.25 K/uL (1.2-3.4); MEAN CELL VOLUME 75.7 fL (80-100); MEAN CORPUSCULAR HEMOGLOBIN 22.3 pg (25-34); MEAN CORPUSCULAR HGB CONC 29.5 g/dl (32-36); MEAN PLATELET VOLUME 9.6 fL (7.4-10.4); MONO % 7.8 %; NEUT % 60.5 %; PLATELET COUNT 261 K/uL (130-400); RED BLOOD COUNT 5.02 M/uL (4.7-6.1); WHITE BLOOD COUNT 8.31 K/uL (4.8-10.8)
[2017-02-07 06:07] LABS: BUN/CREATININE RATIO 9.3 (10-20); CALCIUM 8.8 mg/dl (8.5-10.1); CREATININE 1.2 mg/dl (0.60-1.40); MAGNESIUM 1.8 mg/dl (1.8-2.4); PHOSPHORUS 2.7 mg/dl (2.5-4.9); POTASSIUM 3.8 mmol/L (3.5-5.1)
[2017-02-07 07:08] VITALS: BP 133/82; PULSE 74; TEMP 36.6; O2SAT 91
[2017-02-07] MEDS: NYSTATIN POWDER 15GM BTL EXT SCH ×3 (07:59→20:40)
[2017-02-07] MEDS: POTASSIUM CHLORIDE 20 MEQ TABCR PO SCH ×2 (07:59→17:00)
[2017-02-07] MEDS: METOLAZONE 5 MG TAB PO SCH (07:59)
[2017-02-07 08:00] VITALS: O2SAT 94
[2017-02-07] MEDS: BENZTROPINE MESYLATE 1 MG TAB PO SCH (08:00)
[2017-02-07] MEDS: ASPIRIN 81 MG ECTAB PO SCH (08:00)
[2017-02-07] MEDS: TAMSULOSIN HCL 0.4 MG CAP PO SCH (08:02)
[2017-02-07] MEDS: VENLAFAXINE HCL 37.5 MG TAB PO SCH ×2 (08:02→20:41)
[2017-02-07] MEDS: FUROSEMIDE 40 MG TAB PO SCH (08:02)
[2017-02-07] MEDS: METOPROLOL TARTRATE 25 MG TAB PO SCH ×2 (08:03→20:43)
[2017-02-07] MEDS: MAGNESIUM OXIDE 400 MG TAB PO SCH ×2 (08:04→20:41)
[2017-02-07] MEDS: GABAPENTIN 600 MG TAB PO SCH ×3 (08:04→17:00)
[2017-02-07] MEDS: FINASTERIDE 5 MG TAB PO SCH (08:05)
[2017-02-07] MEDS: PANTOprazole SOD 40 MG TAB PO SCH (08:05)
[2017-02-07] MEDS: ENOXAPARIN 40 MG/0.4 ML SYR SQ SCH ×2 (08:07→20:43)
[2017-02-07] MEDS: LIDODERM (LIDOCAINE) PATCH 5% TD SCH (08:07)
[2017-02-07] MEDS: INSULIN GLARGINE SOLOSTAR 100 UNITS/ML 3 ML PEN SC SCH ×2 (08:13→20:45)
[2017-02-07] MEDS: MODAFINIL 100 MG TAB PO SCH (08:14)
[2017-02-07] MEDS: INSULIN ASPART 100 UNITS/ML 3 ML PEN SC SCH ×4 (08:14→20:39)
--- NOTE | 2017-02-07 12:43 | Pharmacy Progress Note ---
Glycemic Control Progress Note Date of Service Feb 07, 2017. Scope Glycemic Pharmacist consulted for glycemic control to write orders per [facility] inpatient glycemic control protocol. Objective Accuchecks BSG (last 24hrs): Test 02/06/17 15:46 02/06/17 20:14 02/07/17 05:09 02/07/17 07:20 Bedside Glucose 109 mg/dl (70-99) 78 mg/dl (70-99) 100 mg/dl (70-99) Random Glucose 99 mg/dl (70-99) Test 02/07/17 11:17 Bedside Glucose 115 mg/dl (70-99) HbA1c: Test 02/04/17 05:09 Hemoglobin A1c 10.1 % (4.5-5.6) H Recent Pertinent Medications The patient is currently receiving: * Basal insulin: Lantus 6-12 units every 12 hours based on degree of hyperglycemia. Has consistently been receiving 18 units of basal. * Correctional Insulin: Novolog Correction per scale ACHS Goal Range: Low 110 mg/dL - High 140 mg/dL Correction Factor: 20 mg/dL/unit * Prandial insulin: Per carb ratio of 1 unit per 6 grams CHO consumed Outpatient Anti-Diabetic Meds Basal Insulin Bolus Insulin Assessment & Plan ASSESSMENT: * See progress note from 02/04 for more background info, in short: * Pt receiving SQ basal bolus insulin regimen for hyperglycemia secondary to baseline DM (outpatient regimen is SQ basal bolus),stress/infection, * Patient is currently receiving an average of 30 units of insulin per day * 18 units of basal insulin * 12 units of prandial/correctional insulin * BSGs ranging 78 - 147 mg/dl over the past 24hrs * Changes needed to insulin regimen: * AM Fasting BSG = 100 mg/dl. This is in goal range, but trending downwards. Concern for hypo if dosing continued. Will decrease dosing slightly. * Post-prandial BSGs are in range, no change needed to CF/CR PLAN FOR INPATIENT GLYCEMIC CONTROL: * Basal insulin: decrease dosing from 18 units to 16 units * Lantus 8 units SQ BID * Bolus insulin: no change * NovoLog per scale ACHS or Q6hrs while NPO * Goal Range: Low 110 mg/dL - High 140 mg/dL * Correction Factor: 20 mg/dL/unit * Nutritional / Prandial insulin per carb ratio of 1 unit per 6 grams CHO consumed * Please note that the plan above was derived based on current level of insulin resistance and hospital stress. These recommendations are appropriate for inpatient admission only. Plan of care upon discharge will need to be reassessed to avoid potential outpatient hypo/hyperglycemia. Thank you.
[2017-02-07 15:48] VITALS: BP 133/82; PULSE 74; TEMP 36.6; O2SAT 94
[2017-02-07] MEDS: VANCOMYCIN INJ 1,500 MG in SODIUM CHLORIDE 0.9% 500ML 500 ML IV SCH ×2 (16:00→17:48)
[2017-02-07 17:04] LABS: ARTERIAL BLD GAS O2 SATURATION 86.2 % (90-95); ARTERIAL BLOOD GAS BASE EXCESS 7.8 mEq/L (-9-1.8); ARTERIAL BLOOD GAS HCO3 33 mmol/L (19-24); ARTERIAL BLOOD GAS PO2 54 mm/Hg (80-95); ARTERIAL BLOOD GAS pH 7.45 (7.35-7.45)
[2017-02-07 17:05] LABS: ALLEN TEST POS (POS); O2 ADMINISTRATION ROOM AIR
--- NOTE | 2017-02-07 17:40 | DIAGNOSTIC IMAGING REPORT ---
CHEST ONE VIEW PORTABLE HISTORY: Short of breath. COMPARISON: Chest 02/05/2017. FINDINGS: Low lung volumes. No pneumothorax. Trace left pleural effusion. The heart remains mildly enlarged. Progressive perihilar interstitial and vascular thickening consistent with mild pulmonary edema. Patchy density left lung base persist. IMPRESSION: Slight progression of the mild interstitial pulmonary edema. Trace left pleural effusion and left basilar densities persist. Electronically signed by: Ed Turner M.D. 02/07/2017 5:39 PM Dictated Date/Time: 02/07/2017 5:38 PM
[2017-02-07] MEDS ORDERED: FUROSEMIDE INJ 60 MG in SYRINGE 0 ML IV SCH (18:00)
--- NOTE | 2017-02-07 18:26 | DIAGNOSTIC IMAGING REPORT ---
HEAD WITHOUT CONTRAST (CT) CT DOSE: 823.94 mGycm HISTORY: Mental status change altered mental status TECHNIQUE: Multiaxial CT images of the head were performed without the use of intravenous contrast. A dose lowering technique was utilized adhering to the principles of ALARA. Comparison: 02/03/2017 Findings: The paranasal sinuses and mastoid air cells are clear. The calvarium and skull base are intact. The ventricles and sulci are within normal limits. There is no mass, hematoma, midline shift, or acute infarct. Impression: No acute intracranial abnormality. The above report was generated using voice recognition software. It may contain grammatical, syntax or spelling errors. Electronically signed by: Madhu Aguilar M.D. 02/07/2017 6:25 PM Dictated Date/Time: 02/07/2017 6:23 PM
[2017-02-07 18:40] LABS: BASO % 0.1 %; BASO ABS # 0.01 K/uL (0-0.2); EOS % 2.6 %; HEMATOCRIT 37.1 % (42-52); IG% 0.1 %; LYMPH % 21.5 %; LYMPH ABS # 1.59 K/uL (1.2-3.4); MEAN CELL VOLUME 76.2 fL (80-100); MEAN CORPUSCULAR HEMOGLOBIN 22.4 pg (25-34); MEAN PLATELET VOLUME 9.3 fL (7.4-10.4); MONO % 8.4 %; NEUT % 67.3 %; PLATELET COUNT 236 K/uL (130-400); RED BLOOD COUNT 4.87 M/uL (4.7-6.1); WHITE BLOOD COUNT 7.38 K/uL (4.8-10.8)
[2017-02-07 18:58] LABS: BUN/CREATININE RATIO 8.5 (10-20); CREATININE 1.3 mg/dl (0.60-1.40); POTASSIUM 4.3 mmol/L (3.5-5.1)
[2017-02-07 19:03] LABS: COMPLETE YES; MEAN CORPUSCULAR HGB CONC 29.4 g/dl (32-36)
--- NOTE | 2017-02-07 19:03 | Progress Note ---
Medicine Progress Note Date & Time of Visit: Feb 07, 2017 at 18:50. Subjective seen at bedside patient seemed drowsy, easily rousable would answer simple questions but would be saying random things denies chest pain, dyspnea, headache, abdominal pain or any other symptoms not in distress, no accessory muscle use, BSG 117, O2 sats 97% on room air came at bedside on my reevaluation and patient is about the same informed her i will cancel discharge, order labs and monitor the patient she verbalized understanding and agreement Objective Last 8 Hrs Date Time Temp Pulse Resp B/P (MAP) Pulse Ox O2 Delivery O2 Flow Rate FiO2 02/07/17 16:00 Room Air 02/07/17 15:48 36.6 74 20 94 Room Air Mechanical Ventilator Physical Exam: General- drowsy, not oriented, not in distress, speaks in sentences with no effort Eyes- anicteric Neck- no JVD Lungs- clear breath sounds bilaterally, no rales or wheezing Heart- regular rhythm; no murmur, normal rate Abdomen- obese, normal bowel sounds, soft, nontender linear open wound on the abdominal fold, no signs of infection Extremities- no edema, mild hematoma anterior thighs- resolving, no calf tenderness (+) superficial wounds b/l inner thighs/buttock area: no discharge, surrounding mild erythema (+) healing wound on the right toe: no open area, no discharge, no tenderness Neuro- alert, oriented x 3;no gross focal deficits Skin- warm & dry Laboratory Results: Last 24 Hours Test 02/06/17 20:14 02/07/17 05:09 02/07/17 07:20 02/07/17 11:17 Bedside Glucose 78 mg/dl 100 mg/dl 115 mg/dl White Blood Count 8.31 K/uL Red Blood Count 5.02 M/uL Hemoglobin 11.2 g/dL Hematocrit 38.0 % Mean Corpuscular Volume 75.7 fL Mean Corpuscular Hemoglobin 22.3 pg Mean Corpuscular Hemoglobin Concent 29.5 g/dl Platelet Count 261 K/uL Mean Platelet Volume 9.6 fL Neutrophils (%) (Auto) 60.5 % Lymphocytes (%) (Auto) 27.1 % Monocytes (%) (Auto) 7.8 % Eosinophils (%) (Auto) 4.0 % Basophils (%) (Auto) 0.2 % Neutrophils # (Auto) 5.03 K/uL Lymphocytes # (Auto) 2.25 K/uL Monocytes # (Auto) 0.65 K/uL Eosinophils # (Auto) 0.33 K/uL Basophils # (Auto) 0.02 K/uL RDW Standard Deviation 49.9 fL RDW Coefficient of Variation 18.1 % Immature Granulocyte % (Auto) 0.4 % Immature Granulocyte # (Auto) 0.03 K/uL Sodium Level 145 mmol/L Potassium Level 3.8 mmol/L Chloride Level 105 mmol/L Carbon Dioxide Level 34 mmol/L Anion Gap 6.0 mmol/L Blood Urea Nitrogen 11 mg/dl Creatinine 1.20 mg/dl Est Creatinine Clear Calc Drug Dose 72.8 ml/min Estimated GFR () 68.1 Estimated GFR (Non- 58.8 BUN/Creatinine Ratio 9.3 Random Glucose 99 mg/dl Calcium Level 8.8 mg/dl Phosphorus Level 2.7 mg/dl Magnesium Level 1.8 mg/dl Test 02/07/17 16:17 02/07/17 16:43 02/07/17 18:25 02/07/17 18:30 Bedside Glucose 117 mg/dl Arterial Blood pH 7.45 Arterial Blood Partial Pressure CO2 48 mmHg Arterial Blood Partial Pressure O2 54 mm/Hg Arterial Blood HCO3 33 mmol/L Arterial Blood Oxygen Saturation 86.2 % Arterial Blood Base Excess 7.8 mEq/L Arterial Blood Gas Delivery ROOM AIR Khoa Test POS White Blood Count 7.38 K/uL Red Blood Count 4.87 M/uL Hemoglobin 10.9 g/dL Hematocrit 37.1 % Mean Corpuscular Volume 76.2 fL Mean Corpuscular Hemoglobin 22.4 pg Platelet Count 236 K/uL Mean Platelet Volume 9.3 fL Neutrophils (%) (Auto) 67.3 % Lymphocytes (%) (Auto) 21.5 % Monocytes (%) (Auto) 8.4 % Eosinophils (%) (Auto) 2.6 % Basophils (%) (Auto) 0.1 % Neutrophils # (Auto) 4.96 K/uL Lymphocytes # (Auto) 1.59 K/uL Monocytes # (Auto) 0.62 K/uL Eosinophils # (Auto) 0.19 K/uL Basophils # (Auto) 0.01 K/uL RDW Standard Deviation 50.6 fL RDW Coefficient of Variation 18.3 % Immature Granulocyte % (Auto) 0.1 % Immature Granulocyte # (Auto) 0.01 K/uL Assessment & Plan 75 year old male with history of CHF Diastolic Type, DM, HTN, GILLES, other problems noted below presenting with altered mental status. TOXIC/METABOLIC ENCEPHALOPATHY/ ALTERED MENTAL STATUS LIKELY FROM DILAUDID, HYPERCAPNEA, HYPOGLYCEMIA - patient's initial presentation, resolved - received IM Dilaudid, and was found to be hypoglycemi at the ER - was intubated overnight, admitted to ICU - post extubation, required short term Precedex due to agitation - back to baseline - no narcotics management of hypoglycemia noted below - 02/07/17: patient noted to be drowsy, confused CT head: no acute process ABG no ph OK, no hypercapnea but (+) hypoxia CXR: increasing pulmonary congestion will order Lasix 60mg IV patient's usual Lasix 40mg BID was resumed yesterday, this may not be enough to keep him euvolemic, will need Lasix 80mg bid as outpatient ( please change in discharge instructions) will also check CBC, PRP, Ammonia patient was also on Cogentin since admission, which he does not take at home, Cogentin discontinued ACUTE ON CHRONIC DIASTOLIC HEART FAILURE - CXR on admission also showing CHF exacerbation - given Lasix 60mg IV with good diuresis, then Lasix 80mg BID - 02/06/17: resumed usual PO Lasix 40mg bid and Metolazone 02/07/17: (+) worsening CHF, hypoxia will need Lasix 80mg bid as outpatient (please change in discharge instructions) INFECTED WOUNDS, B/L INNER THIGH - (+) enterococcus faecalis, coag neg staph: sensitive to ampicillin/penicillin , Vanco - Wound Care [facility] consulted - on Vanco IV x 4 days - prescription for Augmentin x 4 days already sent to his pharmacy for discharge , please change instructions to take less Augmentin depending on how many days he was here; he only needs 7 days total of antibiotics continue to ff up with Wound Care [facility] and PCP UTI, ENTEROCOCCUS FAECALIS - afebrile, no leukocytosis - urine culture: Enterococcus faecalis resistant to fluoroquinolones, sensitive to Ampicillin and Vancomycin - possible colonization - on Vanco IV x 4 days - prescription for Augmentin x 4 days already sent to his pharmacy for discharge , please change instructions to take less Augmentin depending on how many days he was here; he only needs 7 days total of antibiotics RIGHT TOE HEALING WOUND - grew MRSA on wound culture 01/23/17 - improving prescription for Doxycycline x 4 days already sent to his pharmacy for discharge, please change instructions to take less Doxycycline depending on how many days he was here; he only needs 7 days total of antibiotics NECK PAIN - CT cervical spine unrevealing - added PRN Toradol, Ofirmev - resolved DM 2 - A1C 10.1 - patient's states patient has been controlling his diet better for the past 2 weeks BSGs at home is usually at 120-130s, patient's is concerned about occasional hypoglycemia patient admitted to ER with BSG 50s - recommend to reduce Lantus to 20 units at HS and utilize Aspart Sliding Scale with meals discussed at length with , advised to record BSGs and Insulin Doses given and provide PCP copy of the readings she verbalized that she is comfortable, understanding and agreeable with plan of care - monitor BSGs and A1c as outpatient HTN - continue usual Metoprolol GILLES - encouraged to use CPAP - Provigil started by [employer] Con[employer] Operator Dr. Delvalle, as patient may be having Central Sleep Apnea monitor response, only given 2 weeks prescription MILD HYPOKALEMIA AND HYPOMAGNESEMIA - on PO K and Mg - repeat K and Mg on ff up with PCP MORBID OBESITY - uses wheelchair to mobilize DVT PROPHYLAXIS SCDs, Lovenox Full Code DISPOSITION d/c home with home health services from the [place] ff up with PCP in 3-5 days ff up with Wound Care Services in 1 week case discussed at length and in detail with patient's she is agreeable, and understanding with plan of care Consultants: DEPOSITING MACHINE OPERATOR DR. DELVALLE Procedures: HEAD WITHOUT CONTRAST (CT) CT DOSE: 767.83 mGy.cm HISTORY: Mental status change Evaluate Fever/Sepsis TECHNIQUE: Multiaxial CT images of the head were performed without the use of intravenous contrast. A dose lowering technique was utilized adhering to the principles of ALARA. Comparison: 02/17/2016 Findings: The paranasal sinuses and mastoid air cells are clear. Mild cerebellar as well as cerebral atrophy. Mild chronic small vessel change of aging. No acute intracranial hemorrhage. The ventricular system is midline. Impression: Age-related change. No acute process. CERVICAL SPINE W/O CT DOSE: 515.22 mGy.cm HISTORY: Trauma fall, neck pain TECHNIQUE: Multiaxial CT images of the cervical spine were performed and reformatted in the sagittal and coronal plane without the use of contrast. A dose lowering technique was utilized adhering to the principles of ALARA. COMPARISON: None. FINDINGS: Significant degenerative disc change throughout the entire cervical region. No evidence for an acute compression deformity. Degenerative changes C1-C2 complex. Endotracheal tube in position. Mild prevertebral soft tissue edematous change with a trace amount of soft tissue air possibly on the basis of a traumatic intubation. IMPRESSION: Severe degenerative change. No acute bony abnormality. Endotracheal tube within the trachea CHEST ONE VIEW PORTABLE 02/05/17 HISTORY: 76 years-old Male altered mental status acute altered mental status. Follow-up exam. COMPARISON: Chest radiograph 02/04/2017 TECHNIQUE: Portable semiupright AP view of the chest FINDINGS: Cardiac silhouette is again moderately enlarged. Lungs are mildly hypoinflated with bronchovascular crowding. There is mild plantar vascular congestion without pneumothorax or pleural effusion. There is improved aeration of the bilateral lungs. There is minimal blunting of the bilateral costophrenic angles. Degenerative changes involve the shoulders. IMPRESSION: Cardiomegaly with pulmonary vascular congestion and improved aeration of the bilateral lungs. Current Inpatient Medications: Current Inpatient Medications Medications (Trade) Dose Ordered Sig/Bj Route Start Time Stop Time Status Last Admin Dose Admin Modafinil (proVIGIL TAB) 100 mg QAM PO 02/03/17 10:00 03/05/17 09:59 02/07/17 08:14 100 MG Pantoprazole Sodium (Protonix Tab) 40 mg QAM PO 02/04/17 09:00 03/06/17 08:59 02/07/17 08:05 40 MG Aspirin (Ecotrin Tab) 81 mg DAILY PO 02/04/17 09:00 03/06/17 08:59 02/07/17 08:00 81 MG Finasteride (Proscar Tab) 5 mg QAM PO 02/04/17 09:00 03/06/17 08:59 02/07/17 08:05 5 MG Tamsulosin HCl (Flomax Cap) 0.4 mg QAM PO 02/04/17 09:00 03/06/17 08:59 02/07/17 08:02 0.4 MG Acetaminophen (Tylenol Tab) 650 mg Q4H PRN PO 02/03/17 11:30 03/05/17 11:29 Insulin Aspart (novoLOG ASPART) SLIDING SCALE If C... ACHS SC 02/03/17 16:00 03/05/17 15:59 02/07/17 08:14 2 UNITS Glucose (Glucose 40% Gel) 15-30 GRAMS 15 GRAMS... UD PRN PO 02/03/17 11:30 03/05/17 11:29 Glucose (Glucose Chew Tab) 4-8 Tablets 4 Tabl... UD PRN PO 02/03/17 11:30 03/05/17 11:29 Dextrose (Dextrose 50% 50ML Syringe) 25-50ML OF 50% DW IV FOR... UD PRN IV 02/03/17 11:30 03/05/17 11:29 Glucagon (Glucagon Inj) 1 mg UD PRN SQ 02/03/17 11:30 03/05/17 11:29 Miscellaneous Information (Consult Glycemic Management Pharmacy) 1 ea UD PRN N/A 02/03/17 11:58 03/05/17 11:57 Enoxaparin Sodium (Lovenox Inj) 40 mg Q12H SQ 02/04/17 09:00 03/06/17 08:59 02/07/17 08:07 40 MG Metolazone (Zaroxolyn Tab) 5 mg TuTh@0830 PO 02/05/17 08:30 03/07/17 08:29 02/07/17 07:59 5 MG Metoprolol Tartrate (Lopressor Tab) 12.5 mg BID PO 02/04/17 21:00 03/06/17 20:59 02/07/17 08:03 12.5 MG Nystatin (Mycostatin Powder) 1 appln TID EXT 02/04/17 14:00 03/06/17 13:59 02/07/17 13:19 1 APPLN Potassium Chloride (Klor-Con Tab) 40 meq BIDM PO 02/04/17 16:30 03/06/17 16:29 02/07/17 07:59 40 MEQ Venlafaxine HCl (effeXOR TAB) 75 mg BID PO 02/04/17 21:00 03/06/17 20:59 02/07/17 08:02 75 MG Ketorolac Tromethamine (Toradol Inj) 15 mg Q6H PRN IV. 02/04/17 10:00 02/09/17 09:59 02/05/17 21:41 15 MG Lidocaine (Lidoderm Patch 5%) 1 patch QAM TD 02/04/17 11:00 03/06/17 10:59 02/07/17 08:07 1 PATCH Miscellaneous (Remove Lidoderm Patch) 1 ea DAILY@21 N/A 02/04/17 21:00 03/06/17 20:59 Vancomycin HCl (Consult) 1 ea UD PRN N/A 02/04/17 10:48 03/06/17 10:47 Magnesium Oxide (Mag-Ox Tab) 400 mg BID PO 02/06/17 21:00 03/08/17 20:59 02/07/17 08:04 400 MG Vancomycin HCl 1500 mg/Sodium Chloride 530 ml @ 200 mls/hr Q18H IV 02/06/17 22:00 02/15/17 21:59 02/07/17 17:48 200 MLS/HR Insulin Glargine (Lantus Solostar Pen) 8 units Q12 SC 02/07/17 21:00 03/09/17 20:59 Furosemide (Lasix Tab) 80 mg BID17 PO 02/08/17 09:00 03/06/17 16:59
[2017-02-07 19:09] LABS: ALLEN TEST POS (POS); ARTERIAL BLD GAS O2 SATURATION 92.2 % (90-95); ARTERIAL BLOOD GAS HCO3 33 mmol/L (19-24); ARTERIAL BLOOD GAS PO2 74 mm/Hg (80-95); ARTERIAL BLOOD GAS pH 7.41 (7.35-7.45); O2 ADMINISTRATION 2 LITERS
[2017-02-07 20:48] VITALS: BP 136/66; PULSE 83; O2SAT 100
[2017-02-07 23:08] VITALS: BP 100/52; PULSE 70; TEMP 37; O2SAT 100
[2017-02-08] MEDS: INSULIN ASPART 100 UNITS/ML 3 ML PEN SC SCH ×4 (06:30→22:00)
[2017-02-08 07:21] VITALS: BP 101/61; PULSE 76; TEMP 36.8; O2SAT 100
--- NOTE | 2017-02-08 07:43 | DIAGNOSTIC IMAGING REPORT ---
CHEST ONE VIEW PORTABLE CLINICAL HISTORY: Shortness of breath COMPARISON STUDY: 01/30/2017 FINDINGS: The study is limited from a technical standpoint. The heart remains enlarged. There is mild central pulmonary vascular congestion. There is no lobar consolidation. No significant pleural effusions are visualized.[ IMPRESSION: Technically limited study. Cardiomegaly and suspected pulmonary vascular congestion. No evidence of lobar consolidation Electronically signed by: Oliverio Kramer M.D. 02/08/2017 7:41 AM Dictated Date/Time: 02/08/2017 7:40 AM
[2017-02-08] MEDS: NYSTATIN POWDER 15GM BTL EXT SCH ×3 (09:11→21:52)
[2017-02-08] MEDS: POTASSIUM CHLORIDE 20 MEQ TABCR PO SCH ×2 (09:11→18:03)
[2017-02-08] MEDS: VENLAFAXINE HCL 37.5 MG TAB PO SCH ×2 (09:12→21:52)
[2017-02-08] MEDS: ASPIRIN 81 MG ECTAB PO SCH (09:12)
[2017-02-08] MEDS: TAMSULOSIN HCL 0.4 MG CAP PO SCH (09:13)
[2017-02-08] MEDS: FUROSEMIDE 40 MG TAB PO SCH ×2 (09:14→18:02)
[2017-02-08] MEDS: MAGNESIUM OXIDE 400 MG TAB PO SCH ×2 (09:15→21:57)
[2017-02-08] MEDS: METOPROLOL TARTRATE 25 MG TAB PO SCH ×2 (09:15→21:57)
[2017-02-08] MEDS: FINASTERIDE 5 MG TAB PO SCH (09:15)
[2017-02-08] MEDS: PANTOprazole SOD 40 MG TAB PO SCH (09:15)
[2017-02-08] MEDS: MODAFINIL 100 MG TAB PO SCH (09:16)
[2017-02-08] MEDS: ENOXAPARIN 40 MG/0.4 ML SYR SQ SCH ×2 (09:17→22:01)
[2017-02-08] MEDS: LIDODERM (LIDOCAINE) PATCH 5% TD SCH (09:18)
[2017-02-08] MEDS: INSULIN GLARGINE SOLOSTAR 100 UNITS/ML 3 ML PEN SC SCH ×2 (09:19→21:59)
[2017-02-08] MEDS ORDERED: VANCOMYCIN TROUGH SCH (09:30)
--- NOTE | 2017-02-08 09:57 | Pharmacy Progress Note ---
Glycemic Control Progress Note Date of Service Feb 08, 2017. Scope Glycemic Pharmacist consulted for glycemic control to write orders per [facility] inpatient glycemic control protocol. Objective Accuchecks BSG (last 24hrs): Test 02/07/17 11:17 02/07/17 16:17 02/07/17 18:25 02/07/17 20:17 Bedside Glucose 115 mg/dl (70-99) 117 mg/dl (70-99) 150 mg/dl (70-99) Random Glucose 116 mg/dl (70-99) Test 02/08/17 04:44 02/08/17 07:29 Bedside Glucose 92 mg/dl (70-99) HbA1c: Test 02/04/17 05:09 Hemoglobin A1c 10.1 % (4.5-5.6) H Recent Pertinent Medications The patient is currently receiving: * Basal insulin: Lantus 6 units yesterday morning and 8 units yesterday evening now order 8 units twice daily * Correctional Insulin: Novolog Correction per scale ACHS Goal Range: Low 110 mg/dL - High 140 mg/dL Correction Factor: 20 mg/dL/unit * Prandial insulin: Per carb ratio of 1 unit per 6 grams CHO consumed Outpatient Anti-Diabetic Meds Lantus 38 units qPM Novolog with meals Assessment & Plan ASSESSMENT: * See progress note from 02/04/17 for more background info, in short: * Pt receiving SQ basal bolus insulin regimen for hyperglycemia secondary to baseline DM (outpatient regimen on hold), on vancomycin for MRSA infection, and a type 2 diabetic diet. * Patient is currently receiving an average of ~20 units of insulin per day * 14 units of basal insulin * 7 units of prandial/correctional insulin * BSGs ranging 100 - 150 mg/dl over the past 24hrs * Changes needed to insulin regimen: * AM Fasting BSG = 92 mg/dl. This is in slightly below goal range for patient based on inpatient targets and co-morbidities. This may be reflective of the five units of Novolog he received last night. Continue split dose of Lantus 8 units twice daily- may transition to once daily dosing when patient has angeli dosing. * Post-prandial BSGs are in range therefore no changes needed to CF/CR. * Total daily dose = 30 units.... patient does not appear to be consuming much PO intake. Appears that 14-16 units may be a true basal rate for patient and if patient eats, the CF/CR appears to be sufficient. PLAN FOR INPATIENT GLYCEMIC CONTROL: * Continuing Lantus 8 units SQ BID * Continuing correction factor of 20 mg/dl/unit * Continuing carb ratio of 1 unit per 6 grams CHO consumed * Continuing goal range of Low 110 mg/dL - High 140 mg/dL RECOMMENDATIONS FOR DISCHARGE: * Patient's blood sugar is not controlled (recommended goal HbA1C according to Elements of Diabetes Care Scoring Scale from the ADA is 7.6-8.0%). Recommend working with patient's provider to tighten blood sugar control and provide counseling for dietary intake. Thank you.
[2017-02-08 10:05] LABS: BASO % 0.4 %; BASO ABS # 0.03 K/uL (0-0.2); COMPLETE YES; HEMATOCRIT 37.2 % (42-52); IG% 0.3 %; LYMPH % 28.9 %; LYMPH ABS # 2.04 K/uL (1.2-3.4); MEAN CELL VOLUME 76.9 fL (80-100); MEAN CORPUSCULAR HEMOGLOBIN 22.3 pg (25-34); MONO % 8.7 %; NEUT % 56.7 %; PLATELET COUNT 227 K/uL (130-400); RED BLOOD COUNT 4.84 M/uL (4.7-6.1); WHITE BLOOD COUNT 7.05 K/uL (4.8-10.8)
[2017-02-08] MEDS: VANCOMYCIN INJ 1,500 MG in SODIUM CHLORIDE 0.9% 500ML 500 ML IV SCH (10:34)
[2017-02-08 10:37] LABS: BUN/CREATININE RATIO 12.8 (10-20); CALCIUM 8.5 mg/dl (8.5-10.1); CREATININE 1.3 mg/dl (0.60-1.40); POTASSIUM 3.9 mmol/L (3.5-5.1)
[2017-02-08 10:39] LABS: PHOSPHORUS 3.8 mg/dl (2.5-4.9)
--- NOTE | 2017-02-08 14:11 | Pharmacy Progress Note ---
Pharmacy Abx Dose Short Note Date of Service Feb 08, 2017. Assessment & Plan Assessment 76 year old male receiving Vancomycin IV for treatment of wounds + UTI Day # 6/7 of antimicrobial therapy. Plan Vancomycin * Trough level of 25.2 mcg/mL remains supratherapeutic. * Even with significant decrease, level remains elevated. * Spoke with Dr. Conway regarding antibiotics today. Vancomycin does not need re -dosed and will be on board until tomorrow night since patient received a dose on top of his supratherapeutic trough today. * A total of 7 days of antibiotics will be completed tomorrow. * Pharmacy to D/C vancomycin ongoing per MD. Pharmacy will continue to follow and will adjust dose/frequency as necessary. Thank you.
[2017-02-08 15:01] VITALS: BP 108/62; PULSE 75; TEMP 36.6; O2SAT 96
--- NOTE | 2017-02-08 18:49 | Progress Note ---
Subjective Date of Service: Feb 08, 2017. Subjective Pt evaluation today including: conversation w/ patient, physical exam, lab review, review of studies, review of inpatient medication list Saw/examined the patient in room 254 He's more awake/alert Seems to be oriented Problem List Medical Problems: (1) Acute urinary retention Status: Acute (2) Altered mental status Status: Acute (3) Altered mental status Status: Acute (4) Bronchitis Status: Acute (5) CHF (congestive heart failure) Status: Acute (6) CHF (congestive heart failure) Status: Acute (7) Complication of catheter Status: Acute (8) Dystonic drug reaction Status: Acute (9) Failure to thrive Status: Acute (10) Hypercarbia Status: Acute (11) Hypoglycemia Status: Acute (12) Hypoxemia Status: Acute (13) Hypoxia Status: Acute (14) Hypoxia Status: Acute (15) Malfunction of Osorio catheter Status: Acute (16) Pneumonia Status: Acute (17) Respiratory acidosis Status: Acute (18) Right flank pain Status: Acute (19) Sepsis Status: Acute (20) Urethral pain Status: Acute (21) Urinary retention Status: Acute (22) Urinary retention Status: Acute (23) Urinary tract infection Status: Acute (24) UTI (urinary tract infection) Status: Acute (25) UTI (urinary tract infection) Status: Acute (26) UTI (urinary tract infection) Status: Acute (27) UTI (urinary tract infection) Status: Acute (28) UTI (urinary tract infection) due to urinary indwelling catheter Status: Acute (29) Weakness Status: Acute Review of Systems Constitutional: No fever, No chills Respiratory: No shortness of breath Cardiac: No chest pain Medications Current Inpatient Medications Medications (Trade) Dose Ordered Sig/Bj Route Start Time Stop Time Status Last Admin Dose Admin Modafinil (proVIGIL TAB) 100 mg QAM PO 02/03/17 10:00 03/05/17 09:59 02/08/17 09:16 100 MG Pantoprazole Sodium (Protonix Tab) 40 mg QAM PO 02/04/17 09:00 03/06/17 08:59 02/08/17 09:15 40 MG Aspirin (Ecotrin Tab) 81 mg DAILY PO 02/04/17 09:00 03/06/17 08:59 02/08/17 09:12 81 MG Finasteride (Proscar Tab) 5 mg QAM PO 02/04/17 09:00 03/06/17 08:59 02/08/17 09:15 5 MG Tamsulosin HCl (Flomax Cap) 0.4 mg QAM PO 02/04/17 09:00 03/06/17 08:59 02/08/17 09:13 0.4 MG Acetaminophen (Tylenol Tab) 650 mg Q4H PRN PO 02/03/17 11:30 03/05/17 11:29 Insulin Aspart (novoLOG ASPART) SLIDING SCALE If C... ACHS SC 02/03/17 16:00 03/05/17 15:59 02/08/17 18:01 10 UNITS Glucose (Glucose 40% Gel) 15-30 GRAMS 15 GRAMS... UD PRN PO 02/03/17 11:30 03/05/17 11:29 Glucose (Glucose Chew Tab) 4-8 Tablets 4 Tabl... UD PRN PO 02/03/17 11:30 03/05/17 11:29 Dextrose (Dextrose 50% 50ML Syringe) 25-50ML OF 50% DW IV FOR... UD PRN IV 02/03/17 11:30 03/05/17 11:29 Glucagon (Glucagon Inj) 1 mg UD PRN SQ 02/03/17 11:30 03/05/17 11:29 Miscellaneous Information (Consult Glycemic Management Pharmacy) 1 ea UD PRN N/A 02/03/17 11:58 03/05/17 11:57 Enoxaparin Sodium (Lovenox Inj) 40 mg Q12H SQ 02/04/17 09:00 03/06/17 08:59 02/08/17 09:17 40 MG Metolazone (Zaroxolyn Tab) 5 mg TuTh@0830 PO 02/05/17 08:30 03/07/17 08:29 02/07/17 07:59 5 MG Metoprolol Tartrate (Lopressor Tab) 12.5 mg BID PO 02/04/17 21:00 03/06/17 20:59 02/08/17 09:15 12.5 MG Nystatin (Mycostatin Powder) 1 appln TID EXT 02/04/17 14:00 03/06/17 13:59 02/08/17 14:21 1 APPLN Potassium Chloride (Klor-Con Tab) 40 meq BIDM PO 02/04/17 16:30 03/06/17 16:29 02/08/17 18:03 40 MEQ Venlafaxine HCl (effeXOR TAB) 75 mg BID PO 02/04/17 21:00 03/06/17 20:59 02/08/17 09:12 75 MG Ketorolac Tromethamine (Toradol Inj) 15 mg Q6H PRN IV. 02/04/17 10:00 02/09/17 09:59 02/05/17 21:41 15 MG Lidocaine (Lidoderm Patch 5%) 1 patch QAM TD 02/04/17 11:00 03/06/17 10:59 02/08/17 09:18 1 PATCH Miscellaneous (Remove Lidoderm Patch) 1 ea DAILY@21 N/A 02/04/17 21:00 03/06/17 20:59 Magnesium Oxide (Mag-Ox Tab) 400 mg BID PO 02/06/17 21:00 03/08/17 20:59 02/08/17 09:15 400 MG Insulin Glargine (Lantus Solostar Pen) 8 units Q12 SC 02/07/17 21:00 03/09/17 20:59 02/08/17 09:19 8 UNITS Furosemide (Lasix Tab) 80 mg BID17 PO 02/08/17 09:00 03/06/17 16:59 02/08/17 18:02 80 MG Objective Vital Signs Date Time Temp Pulse Resp B/P (MAP) Pulse Ox O2 Delivery O2 Flow Rate FiO2 02/08/17 16:30 Nasal Cannula 2.0 02/08/17 15:01 36.6 75 20 108/62 (77) 96 Nasal Cannula 2.0 02/08/17 08:00 Nasal Cannula 2.0 02/08/17 07:21 36.8 76 20 101/61 (74) 100 2.0 02/08/17 00:00 Nasal Cannula 2.0 02/07/17 23:08 37.0 70 18 100/52 (68) 100 Nasal Cannula 2.0 02/07/17 20:48 83 136/66 (89) 100 Nasal Cannula 2.0 Physical Exam General Appearance: no apparent distress, + obese Respiratory/Chest: lungs clear, normal breath sounds, no respiratory distress, no accessory muscle use Neurologic/Psychiatric: alert, + pertinent finding (oriented x 3 today; some flight of ideas) Laboratory Results Last 24 Hours Test 02/07/17 18:49 02/07/17 20:17 02/08/17 07:29 02/08/17 09:50 Arterial Blood pH 7.41 Arterial Blood Partial Pressure CO2 53 mmHg Arterial Blood Partial Pressure O2 74 mm/Hg Arterial Blood HCO3 33 mmol/L Arterial Blood Oxygen Saturation 92.2 % Arterial Blood Base Excess 7.0 mEq/L Arterial Blood Gas Delivery 2 LITERS Khoa Test POS Bedside Glucose 150 mg/dl 92 mg/dl White Blood Count 7.05 K/uL Red Blood Count 4.84 M/uL Hemoglobin 10.8 g/dL Hematocrit 37.2 % Mean Corpuscular Volume 76.9 fL Mean Corpuscular Hemoglobin 22.3 pg Mean Corpuscular Hemoglobin Concent 29.0 g/dl Platelet Count 227 K/uL Mean Platelet Volume 9.0 fL Neutrophils (%) (Auto) 56.7 % Lymphocytes (%) (Auto) 28.9 % Monocytes (%) (Auto) 8.7 % Eosinophils (%) (Auto) 5.0 % Basophils (%) (Auto) 0.4 % Neutrophils # (Auto) 4.00 K/uL Lymphocytes # (Auto) 2.04 K/uL Monocytes # (Auto) 0.61 K/uL Eosinophils # (Auto) 0.35 K/uL Basophils # (Auto) 0.03 K/uL RDW Standard Deviation 52.1 fL RDW Coefficient of Variation 18.6 % Immature Granulocyte % (Auto) 0.3 % Immature Granulocyte # (Auto) 0.02 K/uL Sodium Level 146 mmol/L Potassium Level 3.9 mmol/L Chloride Level 105 mmol/L Carbon Dioxide Level 34 mmol/L Anion Gap 7.0 mmol/L Blood Urea Nitrogen 17 mg/dl Creatinine 1.30 mg/dl Est Creatinine Clear Calc Drug Dose 65.0 ml/min Estimated GFR () 61.9 Estimated GFR (Non- 53.4 BUN/Creatinine Ratio 12.8 Random Glucose 101 mg/dl Calcium Level 8.5 mg/dl Phosphorus Level 3.8 mg/dl Magnesium Level 2.0 mg/dl Vancomycin Level Trough 25.2 mcg/ml Test 02/08/17 11:37 02/08/17 16:05 Bedside Glucose 148 mg/dl 171 mg/dl Assessment and Plan 02/08 I saw the patient today; his mental status seems to be clearer and back to baseline will observe overnight, if doing well tomorrow, can likely d/c home with home health course of antibiotics complete in AM; no need to take Augmentin or Doxy at home will need Lasix 80mg BID as outpatient - will adjust these in the discharge instructions and med rec prior to discharge 75 year old male with history of CHF Diastolic Type, DM, HTN, GILLES, other problems noted below presenting with altered mental status. ALTERED MENTAL STATUS LIKELY FROM DILAUDID, HYPERCAPNEA, HYPOGLYCEMIA - patient's initial presentation, resolved - received IM Dilaudid, and was found to be hypoglycemi at the ER - was intubated overnight, admitted to ICU - post extubation, required short term Precedex due to agitation - back to baseline - no narcotics management of hypoglycemia noted below - 02/07/17: patient noted to be drowsy, confused CT head: no acute process ABG no ph OK, no hypercapnea but (+) hypoxia CXR: increasing pulmonary congestion will order Lasix 60mg IV patient's usual Lasix 40mg BID was resumed yesterday, this may not be enough to keep him euvolemic, will need Lasix 80mg bid as outpatient ( please change in discharge instructions) will also check CBC, PRP, Ammonia patient was also on Cogentin since admission, which he does not take at home, Cogentin discontinued ACUTE ON CHRONIC DIASTOLIC HEART FAILURE - CXR on admission also showing CHF exacerbation - given Lasix 60mg IV with good diuresis, then Lasix 80mg BID - 02/06/17: resumed usual PO Lasix 40mg bid and Metolazone 02/07/17: (+) worsening CHF, hypoxia will need Lasix 80mg bid as outpatient (please change in discharge instructions) INFECTED WOUNDS, B/L INNER THIGH - (+) enterococcus faecalis, coag neg staph: sensitive to ampicillin/penicillin , Vanco - Wound Care SVC consulted - on Vanco IV x 4 days - prescription for Augmentin x 4 days already sent to his pharmacy for discharge , please change instructions to take less Augmentin depending on how many days he was here; he only needs 7 days total of antibiotics continue to ff up with Wound Care S[facility] and PCP UTI, ENTEROCOCCUS FAECALIS - afebrile, no leukocytosis - urine culture: Enterococcus faecalis resistant to fluoroquinolones, sensitive to Ampicillin and Vancomycin - possible colonization - on Vanco IV x 4 days - prescription for Augmentin x 4 days already sent to his pharmacy for discharge , please change instructions to take less Augmentin depending on how many days he was here; he only needs 7 days total of antibiotics RIGHT TOE HEALING WOUND - grew MRSA on wound culture 01/23/17 - improving prescription for Doxycycline x 4 days already sent to his pharmacy for discharge, please change instructions to take less Doxycycline depending on how many days he was here; he only needs 7 days total of antibiotics NECK PAIN - CT cervical spine unrevealing - added PRN Toradol, Ofirmev - resolved DM 2 - A1C 10.1 - patient's states patient has been controlling his diet better for the past 2 weeks BSGs at home is usually at 120-130s, patient's is concerned about occasional hypoglycemia patient admitted to ER with BSG 50s - recommend to reduce Lantus to 20 units at HS and utilize Aspart Sliding Scale with meals discussed at length with , advised to record BSGs and Insulin Doses given and provide PCP copy of the readings she verbalized that she is comfortable, understanding and agreeable with plan of care - monitor BSGs and A1c as outpatient HTN - continue usual Metoprolol GILLES - encouraged to use CPAP - Provigil started by [employer] Consultant Dr. Chi, as patient may be having Central Sleep Apnea monitor response, only given 2 weeks prescription MILD HYPOKALEMIA AND HYPOMAGNESEMIA - on PO K and Mg - repeat K and Mg on ff up with PCP MORBID OBESITY - uses wheelchair to mobilize DVT PROPHYLAXIS SCDs, Lovenox Full Code DISPOSITION d/c [facility] ff up with PCP in 3-5 days ff up with Wound Care Services in 1 week case discussed at length and in detail with patient's she is agreeable, and understanding with plan of care
[2017-02-08] MEDS ORDERED: COUGH DROP (SUGAR FREE) LOZ 24 LOZ/1 BOX PO PRN (23:30)
[2017-02-08 23:43] VITALS: BP 98/50; PULSE 78; TEMP 36.7; O2SAT 95
[2017-02-09] MEDS: KETOROLAC TROMETHAMINE 15 MG/ML VIAL IV. PRN (00:53)
[2017-02-09 06:57] VITALS: BP 106/55; PULSE 75; TEMP 36.5; O2SAT 93
[2017-02-09] MEDS: LIDODERM (LIDOCAINE) PATCH 5% TD SCH (07:30)
[2017-02-09] MEDS: ENOXAPARIN 40 MG/0.4 ML SYR SQ SCH (07:30)
[2017-02-09] MEDS: MODAFINIL 100 MG TAB PO SCH (07:31)
[2017-02-09] MEDS: NYSTATIN POWDER 15GM BTL EXT SCH (07:31)
[2017-02-09] MEDS: PANTOprazole SOD 40 MG TAB PO SCH (07:31)
[2017-02-09] MEDS: FINASTERIDE 5 MG TAB PO SCH (07:31)
[2017-02-09] MEDS: METOPROLOL TARTRATE 25 MG TAB PO SCH (07:31)
[2017-02-09] MEDS: VENLAFAXINE HCL 37.5 MG TAB PO SCH (07:32)
[2017-02-09] MEDS: ASPIRIN 81 MG ECTAB PO SCH (07:32)
[2017-02-09] MEDS: TAMSULOSIN HCL 0.4 MG CAP PO SCH (07:32)
[2017-02-09] MEDS: MAGNESIUM OXIDE 400 MG TAB PO SCH (07:32)
[2017-02-09] MEDS: FUROSEMIDE 40 MG TAB PO SCH (07:32)
[2017-02-09] MEDS: POTASSIUM CHLORIDE 20 MEQ TABCR PO SCH (07:33)
[2017-02-09] MEDS: INSULIN ASPART 100 UNITS/ML 3 ML PEN SC SCH (08:21)
[2017-02-09] MEDS: INSULIN GLARGINE SOLOSTAR 100 UNITS/ML 3 ML PEN SC SCH (08:22)
--- NOTE | 2017-02-09 09:07 | Progress Note ---
Subjective Date of Service: Feb 09, 2017. Subjective Pt evaluation today including: conversation w/ patient, physical exam, lab review, review of studies, review of inpatient medication list Saw/examined the patient in room 254 He's doing well today Appropriate conversation; not confused, awake/alert, eager to go home Problem List Medical Problems: (1) Acute urinary retention Status: Acute (2) Altered mental status Status: Acute (3) Altered mental status Status: Acute (4) Bronchitis Status: Acute (5) CHF (congestive heart failure) Status: Acute (6) CHF (congestive heart failure) Status: Acute (7) Complication of catheter Status: Acute (8) Dystonic drug reaction Status: Acute (9) Failure to thrive Status: Acute (10) Hypercarbia Status: Acute (11) Hypoglycemia Status: Acute (12) Hypoxemia Status: Acute (13) Hypoxia Status: Acute (14) Hypoxia Status: Acute (15) Malfunction of Osorio catheter Status: Acute (16) Pneumonia Status: Acute (17) Respiratory acidosis Status: Acute (18) Right flank pain Status: Acute (19) Sepsis Status: Acute (20) Urethral pain Status: Acute (21) Urinary retention Status: Acute (22) Urinary retention Status: Acute (23) Urinary tract infection Status: Acute (24) UTI (urinary tract infection) Status: Acute (25) UTI (urinary tract infection) Status: Acute (26) UTI (urinary tract infection) Status: Acute (27) UTI (urinary tract infection) Status: Acute (28) UTI (urinary tract infection) due to urinary indwelling catheter Status: Acute (29) Weakness Status: Acute Review of Systems Constitutional: No fever, No chills Respiratory: No cough, No shortness of breath Cardiac: No chest pain Neurologic: + numbness/tingling Medications Current Inpatient Medications Medications (Trade) Dose Ordered Sig/Bj Route Start Time Stop Time Status Last Admin Dose Admin Modafinil (proVIGIL TAB) 100 mg QAM PO 02/03/17 10:00 03/05/17 09:59 02/09/17 07:31 100 MG Pantoprazole Sodium (Protonix Tab) 40 mg QAM PO 02/04/17 09:00 03/06/17 08:59 02/09/17 07:31 40 MG Aspirin (Ecotrin Tab) 81 mg DAILY PO 02/04/17 09:00 03/06/17 08:59 02/09/17 07:32 81 MG Finasteride (Proscar Tab) 5 mg QAM PO 02/04/17 09:00 03/06/17 08:59 02/09/17 07:31 5 MG Tamsulosin HCl (Flomax Cap) 0.4 mg QAM PO 02/04/17 09:00 03/06/17 08:59 02/09/17 07:32 0.4 MG Acetaminophen (Tylenol Tab) 650 mg Q4H PRN PO 02/03/17 11:30 03/05/17 11:29 Insulin Aspart (novoLOG ASPART) SLIDING SCALE If C... ACHS SC 02/03/17 16:00 03/05/17 15:59 02/09/17 08:21 4 UNITS Glucose (Glucose 40% Gel) 15-30 GRAMS 15 GRAMS... UD PRN PO 02/03/17 11:30 03/05/17 11:29 Glucose (Glucose Chew Tab) 4-8 Tablets 4 Tabl... UD PRN PO 02/03/17 11:30 03/05/17 11:29 Dextrose (Dextrose 50% 50ML Syringe) 25-50ML OF 50% DW IV FOR... UD PRN IV 02/03/17 11:30 03/05/17 11:29 Glucagon (Glucagon Inj) 1 mg UD PRN SQ 02/03/17 11:30 03/05/17 11:29 Miscellaneous Information (Consult Glycemic Management Pharmacy) 1 ea UD PRN N/A 02/03/17 11:58 03/05/17 11:57 Enoxaparin Sodium (Lovenox Inj) 40 mg Q12H SQ 02/04/17 09:00 03/06/17 08:59 02/09/17 07:30 40 MG Metolazone (Zaroxolyn Tab) 5 mg TuTh@0830 PO 02/05/17 08:30 03/07/17 08:29 02/07/17 07:59 5 MG Metoprolol Tartrate (Lopressor Tab) 12.5 mg BID PO 02/04/17 21:00 03/06/17 20:59 02/09/17 07:31 12.5 MG Nystatin (Mycostatin Powder) 1 appln TID EXT 02/04/17 14:00 10/25/17 13:59 02/09/17 07:31 1 APPLN Potassium Chloride (Klor-Con Tab) 40 meq BIDM PO 02/04/17 16:30 03/06/17 16:29 02/09/17 07:33 40 MEQ Venlafaxine HCl (effeXOR TAB) 75 mg BID PO 02/04/17 21:00 03/06/17 20:59 02/09/17 07:32 75 MG Ketorolac Tromethamine (Toradol Inj) 15 mg Q6H PRN IV. 02/04/17 10:00 02/09/17 09:59 02/09/17 00:53 15 MG Lidocaine (Lidoderm Patch 5%) 1 patch QAM TD 02/04/17 11:00 03/06/17 10:59 02/09/17 07:30 1 PATCH Miscellaneous (Remove Lidoderm Patch) 1 ea DAILY@21 N/A 02/04/17 21:00 03/06/17 20:59 Magnesium Oxide (Mag-Ox Tab) 400 mg BID PO 02/06/17 21:00 03/08/17 20:59 02/09/17 07:32 400 MG Insulin Glargine (Lantus Solostar Pen) 8 units Q12 SC 02/07/17 21:00 03/09/17 20:59 02/09/17 08:22 8 UNITS Furosemide (Lasix Tab) 80 mg BID17 PO 02/08/17 09:00 03/06/17 16:59 02/09/17 07:32 80 MG Menthol (Nice Shae) 1 shae PRN PRN PO 02/08/17 23:30 03/10/17 23:29 Objective Vital Signs Date Time Temp Pulse Resp B/P (MAP) Pulse Ox O2 Delivery O2 Flow Rate FiO2 02/09/17 06:57 36.5 75 20 106/55 (72) 93 Nasal Cannula 2.0 02/09/17 00:00 Room Air 2.0 Nasal Cannula 02/08/17 23:43 36.7 78 20 98/50 (66) 95 Room Air 02/08/17 16:30 Nasal Cannula 2.0 02/08/17 15:01 36.6 75 20 108/62 (77) 96 Nasal Cannula 2.0 Physical Exam General Appearance: no apparent distress, + obese Respiratory/Chest: lungs clear, normal breath sounds, no respiratory distress, no accessory muscle use Cardiovascular: regular rate, rhythm, no edema, no murmur Extremities: + swelling (R toe), + pertinent finding Laboratory Results Last 24 Hours Test 02/08/17 09:50 02/08/17 11:37 02/08/17 16:05 02/08/17 20:22 White Blood Count 7.05 K/uL Red Blood Count 4.84 M/uL Hemoglobin 10.8 g/dL Hematocrit 37.2 % Mean Corpuscular Volume 76.9 fL Mean Corpuscular Hemoglobin 22.3 pg Mean Corpuscular Hemoglobin Concent 29.0 g/dl Platelet Count 227 K/uL Mean Platelet Volume 9.0 fL Neutrophils (%) (Auto) 56.7 % Lymphocytes (%) (Auto) 28.9 % Monocytes (%) (Auto) 8.7 % Eosinophils (%) (Auto) 5.0 % Basophils (%) (Auto) 0.4 % Neutrophils # (Auto) 4.00 K/uL Lymphocytes # (Auto) 2.04 K/uL Monocytes # (Auto) 0.61 K/uL Eosinophils # (Auto) 0.35 K/uL Basophils # (Auto) 0.03 K/uL RDW Standard Deviation 52.1 fL RDW Coefficient of Variation 18.6 % Immature Granulocyte % (Auto) 0.3 % Immature Granulocyte # (Auto) 0.02 K/uL Sodium Level 146 mmol/L Potassium Level 3.9 mmol/L Chloride Level 105 mmol/L Carbon Dioxide Level 34 mmol/L Anion Gap 7.0 mmol/L Blood Urea Nitrogen 17 mg/dl Creatinine 1.30 mg/dl Est Creatinine Clear Calc Drug Dose 65.0 ml/min Estimated GFR () 61.9 Estimated GFR (Non- 53.4 BUN/Creatinine Ratio 12.8 Random Glucose 101 mg/dl Calcium Level 8.5 mg/dl Phosphorus Level 3.8 mg/dl Magnesium Level 2.0 mg/dl Vancomycin Level Trough 25.2 mcg/ml Bedside Glucose 148 mg/dl 171 mg/dl 193 mg/dl Test 02/09/17 07:35 Bedside Glucose 176 mg/dl Assessment and Plan 02/09 Plan is to discharge home with home health will d/c with Lasix 80mg BID he has completed the course of antibiotics 02/08 I saw the patient today; his mental status seems to be clearer and back to baseline will observe overnight, if doing well tomorrow, can likely d/c home with home health course of antibiotics complete in AM; no need to take Augmentin or Doxy at home will need Lasix 80mg BID as outpatient - will adjust these in the discharge instructions and med rec prior to discharge 75 year old male with history of CHF Diastolic Type, DM, HTN, GILLES, other problems noted below presenting with altered mental status. ALTERED MENTAL STATUS LIKELY FROM DILAUDID, HYPERCAPNEA, HYPOGLYCEMIA - patient's initial presentation, resolved - received IM Dilaudid, and was found to be hypoglycemi at the ER - was intubated overnight, admitted to ICU - post extubation, required short term Precedex due to agitation - back to baseline - no narcotics management of hypoglycemia noted below - 02/07/17: patient noted to be drowsy, confused CT head: no acute process ABG no ph OK, no hypercapnea but (+) hypoxia CXR: increasing pulmonary congestion will order Lasix 60mg IV patient's usual Lasix 40mg BID was resumed yesterday, this may not be enough to keep him euvolemic, will need Lasix 80mg bid as outpatient ( please change in discharge instructions) will also check CBC, PRP, Ammonia patient was also on Cogentin since admission, which he does not take at home, Cogentin discontinued ACUTE ON CHRONIC DIASTOLIC HEART FAILURE - CXR on admission also showing CHF exacerbation - given Lasix 60mg IV with good diuresis, then Lasix 80mg BID - 02/06/17: resumed usual PO Lasix 40mg bid and Metolazone 02/07/17: (+) worsening CHF, hypoxia will need Lasix 80mg bid as outpatient (please change in discharge instructions) INFECTED WOUNDS, B/L INNER THIGH - (+) enterococcus faecalis, coag neg staph: sensitive to ampicillin/penicillin , Vanco - Wound Care SVC consulted - on Vanco IV x 4 days - prescription for Augmentin x 4 days already sent to his pharmacy for discharge , please change instructions to take less Augmentin depending on how many days he was here; he only needs 7 days total of antibiotics continue to ff up with Wound Care SVC and PCP UTI, ENTEROCOCCUS FAECALIS - afebrile, no leukocytosis - urine culture: Enterococcus faecalis resistant to fluoroquinolones, sensitive to Ampicillin and Vancomycin - possible colonization - on Vanco IV x 4 days - prescription for Augmentin x 4 days already sent to his pharmacy for discharge , please change instructions to take less Augmentin depending on how many days he was here; he only needs 7 days total of antibiotics RIGHT TOE HEALING WOUND - grew MRSA on wound culture 01/23/17 - improving prescription for Doxycycline x 4 days already sent to his pharmacy for discharge, please change instructions to take less Doxycycline depending on how many days he was here; he only needs 7 days total of antibiotics NECK PAIN - CT cervical spine unrevealing - added PRN Toradol, Ofirmev - resolved DM 2 - A1C 10.1 - patient's states patient has been controlling his diet better for the past 2 weeks BSGs at home is usually at 120-130s, patient's is concerned about occasional hypoglycemia patient admitted to ER with BSG 50s - recommend to reduce Lantus to 20 units at HS and utilize Aspart Sliding Scale with meals discussed at length with , advised to record BSGs and Insulin Doses given and provide PCP copy of the readings she verbalized that she is comfortable, understanding and agreeable with plan of care - monitor BSGs and A1c as outpatient HTN - continue usual Metoprolol GILLES - encouraged to use CPAP - Provigil started by [employer] Examiner Dr. Chi, as patient may be having Central Sleep Apnea monitor response, only given 2 weeks prescription MILD HYPOKALEMIA AND HYPOMAGNESEMIA - on PO K and Mg - repeat K and Mg on ff up with PCP MORBID OBESITY - uses wheelchair to mobilize DVT PROPHYLAXIS SCDs, Lovenox Full Code DISPOSITION d/c [facility] ff up with PCP in 3-5 days ff up with Wound Care Services in 1 week case discussed at length and in detail with patient's she is agreeable, and understanding with plan of care
[2017-02-09] MEDS ORDERED: FRS/40 PO (09:15)
[2017-02-09 10:54] VITALS: BP 106/55; PULSE 75; TEMP 36.5; O2SAT 93
[2017-02-09] MEDS ORDERED: PRV100 PO (11:54)
--- NOTE | 2017-02-09 12:16 | Pharmacy Progress Note ---
Glycemic Control Progress Note Date of Service Feb 09, 2017. Scope Glycemic Pharmacist consulted for glycemic control to write orders per [facility] inpatient glycemic control protocol. Objective Accuchecks BSG (last 24hrs): Test 02/08/17 16:05 02/08/17 20:22 02/09/17 07:35 02/09/17 11:32 Bedside Glucose 171 mg/dl (70-99) 193 mg/dl (70-99) 176 mg/dl (70-99) 115 mg/dl (70-99) HbA1c: Test 02/04/17 05:09 Hemoglobin A1c 10.1 % (4.5-5.6) H Recent Pertinent Medications The patient is currently receiving: * Basal insulin: Lantus 8 units every 12 hours * Correctional Insulin: Novolog Correction per scale ACHS Goal Range: Low 110 mg/dL - High 140 mg/dL Correction Factor: 20 mg/dL/unit * Prandial insulin: Per carb ratio of 1 unit per 6 grams CHO consumed * Oral Agents: None currently Outpatient Anti-Diabetic Meds Lantus 35 units SQ Q PM Novolog w/ meals Assessment & Plan ASSESSMENT: 02/09/17 * BSGs have ranged 115-193 over the last 24 hrs; only 1 BSG above 180 * Fasting BSG elevated this AM, 176 w/ 16 units of Lantus on board. I am hesitant to react to this single elevation as fasting AM hyperglycemia has not been the current pattern. Will reevaluate basal dose tomorrow AM but continue same dose for now. * Novolog CF and CR have performed well - no change PLAN FOR INPATIENT GLYCEMIC CONTROL: * Continuing Lantus 8 SQ BID * Continuing correction factor 20 mg/dl/unit * Continuing carb ratio of 1 unit per 6 grams CHO consumed * Continuing goal range of Low 110 mg/dL - High 140 mg/dL RECOMMENDATIONS FOR DISCHARGE: * * Please note that the plan above was derived based on current level of insulin resistance and hospital stress. These recommendations are appropriate for inpatient admission only. Plan of care upon discharge will need to be reassessed to avoid potential outpatient hypo/hyperglycemia. Thank you.
[2017-02-09] MEDS ORDERED: MAGN400T6 PO (15:14)
[2017-02-09] MEDS ORDERED: MODA1TAB5 PO (15:14)
== END 2017-02-09 12:00 | disposition home health service (06) | DRG 208 ==
LOC: C.EDB 19:56 → C.MSICU 02-03 06:15 → ENRESERV 02-03 06:18 → C.MS2W 02-04 11:52 → UNDODISIN 02-08 16:15
PROVIDERS: ADMIT Hospitalist; ATTEND Family Medicine
PROC: 0BH17EZ Insertion of Endotracheal Airway into Trachea, Via Natural or Artificial Opening (ICD-10-PCS; principal; 2017-02-03)
PROC: 5A1935Z Respiratory Ventilation, Less than 24 Consecutive Hours (ICD-10-PCS; principal; 2017-02-03)
DX: J96.22 Acute and chronic respiratory failure with hypercapnia (principal); G92 Toxic encephalopathy; I50.33 Acute on chronic diastolic (congestive) heart failure; N39.0 Urinary tract infection, site not specified; E66.2 Morbid (severe) obesity with alveolar hypoventilation; Z68.41 Body mass index [BMI] 40.0-44.9, adult; T40.2X5A Adverse effect of other opioids, initial encounter; Y92.538 Other ambulatory health services establishments as the place of occurrence of the external cause; E11.649 Type 2 diabetes mellitus with hypoglycemia without coma; M54.2 Cervicalgia; E83.42 Hypomagnesemia; E87.6 Hypokalemia; S70.922A Unspecified superficial injury of left thigh, initial encounter; S70.921A Unspecified superficial injury of right thigh, initial encounter; X58.XXXA Exposure to other specified factors, initial encounter; B95.2 Enterococcus as the cause of diseases classified elsewhere; Z16.23 Resistance to quinolones and fluoroquinolones; E11.621 Type 2 diabetes mellitus with foot ulcer; L97.519 Non-pressure chronic ulcer of other part of right foot with unspecified severity; I44.0 Atrioventricular block, first degree; I11.0 Hypertensive heart disease with heart failure; N40.0 Benign prostatic hyperplasia without lower urinary tract symptoms; H54.8 Legal blindness, as defined in USA; Z86.14 Personal history of Methicillin resistant Staphylococcus aureus infection; Z91.81 History of falling; Z99.3 Dependence on wheelchair; Z87.891 Personal history of nicotine dependence; Z79.82 Long term (current) use of aspirin; Z79.4 Long term (current) use of insulin; Z79.899 Other long term (current) drug therapy

== ENCOUNTER 2017-02-13 12:27 | Inpatient (IN) | payer OTHER ==
[~2017-02-13] VITALS: Ht 177.8 cm; Wt 125.4 kg
[~2017-02-13 12:27] MED LIST changes: +INSU1INJ2 SC; +LACT10CA3 PO; +MAGN400T6 PO; +MGNO400 PO; +MODA1TAB5 PO; -NVLGI/PEN SC; -NVLGIPEN SC; +PRV100 PO; -TRAM-10 PO
[2017-02-13] MEDS ORDERED: SODIUM CHLORIDE 0.9% 1000ML 250 ML IV STA (13:15)
--- NOTE | 2017-02-13 13:38 | EMERGENCY ROOM VISIT NOTE ---
History Report prepared by Tr: Ema Espinosa Under the Supervision of: Dr. Porfirio Mendieta M.D. First contact with patient: 13:12 Chief Complaint: ALTERED MENTAL STATUS Stated Complaint: CONFUSION Nursing Triage Summary: Pt arrives to ER via ALS from home with increased confusion per pts . Pt recently discharged from [facility] on Saturday, treated for UTI. Pt has rodriguez catheter at this time. Pt was discharged on Cipro. Pt arrives to ER lethargic, Oriented to person. Pt received 250 mL NSS enroute to hospital. Pt RA O2 saturation 89% on arrival to ER. History of Present Illness The patient is a 76 year old male who presents to the Emergency Room via ALS with an altered mental status that has been increasing since Saturday. The patient's states that the patient was evaluated in the hospital from February 02-February 09 for persistent pain in his back and neck. She states that the patient was given Dilaudid and has had confusion since then. The patient's states that the patient has been experiencing hallucinations intermittently since Saturday. She states that the patient is not currently on any narcotic pain medications, noting that he is taking Gabapentin and Advil for his discomfort. The patient's states that the patient has had increased weakness and jerky movements over the past several days. She denies the patient having any cough, shortness of breath, or vomiting. The history is limited secondary to the patient's altered mental status. Looking at old records, the patient was diagnosed with a UTI during his last hospital stay. He was prescribed Cipro and is still taking this medication. Source of History: spouse/significant other () History Limited By: AMS Onset: Saturday Position: other (global) Quality: other (altered mental status) Timing: other (increasing) Associated Symptoms: + weakness Note: Associated Symptoms: jerking movements, confusion, hallucinations Review of Systems The history and ROS are limited are secondary to the patient's altered mental status. Past Medical & Surgical Medical Problems: (1) Altered mental status (2) Anxiety (3) Asthma, cough variant (4) Benign prostatic hyperplasia (5) Depression (6) Diabetes mellitus type 2 (7) Diabetic neuropathy (8) Diabetic peripheral neuropathy associated with type 2 diabetes mellitus (9) Diastolic heart failure (10) Dyslipidemia (11) Essential hypertension (12) Gastroesophageal reflux disease (13) Hypoxia (14) Legal blindness (15) Loss of sensation (16) Morbid obesity (17) Nocturnal hypoxemia (18) Obesity hypoventilation syndrome (19) Peripheral venous insufficiency (20) Pre-ulcerative corn or callous (21) Respiratory failure (22) Sleep apnea (23) UTI (urinary tract infection) Surgical Problems: (1) S/P cataract surgery (2) S/P colonoscopy (3) S/p eyelid surgery (4) S/P foot surgery, left (5) S/P panniculectomy (6) S/P tonsillectomy Family History Diabetes mellitus MOTHER BROTHER GRANDMOTHER FH: CAD (coronary artery disease) FATHER (CABG) FH: CHF (congestive heart failure) MOTHER BROTHER GI disorder Hypertension MOTHER Social History Smoking Status: Former Smoker Alcohol Use: none Drug Use: none Marital Status: Housing Status: lives with family Occupation Status: retired Current/Historical Medications Scheduled Aspirin (Aspirin Ec), 81 MG PO DAILY Finasteride (Proscar), 5 MG PO QAM Folic Acid (Folic Acid), 400 MCG PO QAM Furosemide (Furosemide), 2 TAB PO BID Gabapentin (Neurontin), 600 MG PO QID Insulin Glargine (Lantus Solostar), 20 UNITS SC QPM Lactobacillus-Inulin (Culturelle), 1 CAP PO DAILY Magnesium Oxide (Mag-Ox), 400 MG PO DAILY Metolazone (Zaroxolyn), 5 MG PO 2XWK Metoprolol Tartrate (Lopressor) (Lopressor), 12.5 MG PO BID Modafinil (Provigil), 100 MG PO QAM Multivitamin (Multivitamin), 1 TAB PO DAILY Nystatin (Topical) (Nyata), 1 APPL TOP TID Nystatin-Triamcinolone (Nystatin/Triamcinolone), 1 APPLN TOP BID Ocuvite Preservision (Ocuvite Preservision), 1 TAB PO DAILY Omeprazole (Prilosec), 20 MG PO QAM Potassium Ext Rel (Klor-Con), 40 MEQ PO BID Simvastatin (Zocor), 40 MG PO HS Tamsulosin HCl (Tamsulosin HCl), 1 CAP PO HS Venlafaxine Hcl (Effexor), 75 MG PO BID Scheduled PRN Insulin Aspart (Novolog Penfill), 1 UNIT SC AC PRN for hyperglycemia Allergies Coded Allergies: Hydromorphone (Verified Adverse Reaction, Severe, DELIRIUM, UNRESPONSIVENESS, 02/13/17) UNRESPONSIVENESS Oxycodone (Verified Adverse Reaction, Unknown, Trouble coming off, 02/13/17 ) Repoted by , NOT ALLERGIC TO THEM Propoxyphene (Verified Adverse Reaction, Unknown, Trouble coming off of Darvocet., 02/13/17) Reported by Physical Exam Vital Signs Date Time Temp Pulse Resp B/P (MAP) Pulse Ox O2 Delivery O2 Flow Rate FiO2 02/13/17 14:38 68 17 139/48 99 Room Air 02/13/17 13:43 100 16 127/69 100 Nasal Cannula 3.0 02/13/17 13:36 70 02/13/17 13:29 94 Nasal Cannula 3.0 02/13/17 12:45 99 Nasal Cannula 3.0 02/13/17 12:39 37.1 76 18 116/68 89 Room Air Physical Exam GENERAL: Patient is in no acute distress. HEENT: No acute trauma, normocephalic atraumatic, mucous membranes moist, no nasal congestion, no scleral icterus. Pupils are equal and reactive to light. NECK: No stridor, no adenopathy, no meningismus, trachea is midline. LUNGS: Clear to auscultation bilaterally, no wheeze, no rhonchi, breath sounds equal. HEART: Without murmurs gallops or rubs, regular rate and rhythm. ABDOMEN: Soft, nontender, bowel sounds positive, no hernias, no peritonitis. Groin: Rodriguez catheter draining orange urine, no scrotal cellulitis. EXTREMITIES: Mild bilateral pedal edema without cellulitis. No cyanosis, full range of motion of all the joints without pain or difficulty, no signs for acute trauma. NEUROLOGIC: Confused, but awakes to voice, moving all extremities, speech is slurred. SKIN: No rash, no jaundice, no diaphoresis. Medical Decision & Procedures ER Provider Diagnostic Interpretation: Radiology results as stated below per my review and radiologist interpretation: CHEST ONE VIEW PORTABLE CLINICAL HISTORY: Altered mental status. Weakness. COMPARISON STUDY: Chest radiograph February 08, 2017. FINDINGS: This study is compromised due to difficulty positioning and suboptimal penetration. Lung volumes are diminished. This is unchanged. No pneumothorax or pleural effusion is present. There is apparent hazy left basilar opacity. There is no evidence for overt pulmonary edema. Patient is rotated. IMPRESSION: 1. Technically difficult study to interpret. 2. No definite acute findings. Equivocal hazy left basilar opacity which likely reflects artifact or atelectasis. Consolidation could appear similar although is considered less likely. Electronically signed by: Vlad Everett M.D. 02/13/2017 2:25 PM Dictated Date/Time: 02/13/2017 2:[address] shows no acute bleed or mass effect. Laboratory Results 02/13/17 14:01 Red Blood Count 4.70, Mean Corpuscular Volume 76.0, Mean Corpuscular Hemoglobin 22.1, Mean Corpuscular Hemoglobin Concent 29.1, Mean Platelet Volume 10.2, Neutrophils (%) (Auto) 64.3, Lymphocytes (%) (Auto) 23.4, Monocytes (%) (Auto) 7.8, Eosinophils (%) (Auto) 4.0, Basophils (%) (Auto) 0.4, Neutrophils # (Auto) 4.47, Lymphocytes # (Auto) 1.63, Monocytes # (Auto) 0.54, Eosinophils # (Auto) 0.28, Basophils # (Auto) 0.03 02/13/17 14:01 Test 02/13/17 13:43 02/13/17 14:01 02/13/17 15:36 Urine Color DK YELLOW Urine Appearance CLEAR (CLEAR) Urine pH 5.0 (4.5-7.5) Urine Specific [place] 1.016 (1.000-1.030) Urine Protein NEG (NEG) Urine Glucose (UA) NEG (NEG) Urine Ketones NEG (NEG) Urine Occult Blood NEG (NEG) Urine Nitrite POS (NEG) Urine Bilirubin NEG (NEG) Urine Urobilinogen NEG (NEG) Urine Leukocyte Esterase MODERATE (NEG) Urine WBC (Auto) 10-30 /hpf (0-5) Urine RBC (Auto) 5-10 /hpf (0-4) Urine Hyaline Casts (Auto) 1-5 /lpf (0-5) Urine Epithelial Cells (Auto) 10-20 /lpf (0-5) Urine Bacteria (Auto) NEG (NEG) Urine Opiates Screen NEG (NEG) Urine Methadone, Qualitative NEG (NEG) Urine Barbiturates NEG (NEG) Urine Phencyclidine (PCP) Level NEG (NEG) Ur Amphetamine/Methamphetamine NEG (NEG) MDMA (Ecstasy) Screen NEG (NEG) Urine Benzodiazepines Screen NEG (NEG) Urine Cocaine Metabolite NEG (NEG) Urine Marijuana (THC) NEG (NEG) White Blood Count 6.96 K/uL (4.8-10.8) Red Blood Count 4.70 M/uL (4.7-6.1) Hemoglobin 10.4 g/dL (14.0-18.0) Hematocrit 35.7 % (42-52) Mean Corpuscular Volume 76.0 fL (80-100) Mean Corpuscular Hemoglobin 22.1 pg (25-34) Mean Corpuscular Hemoglobin Concent 29.1 g/dl (32-36) Platelet Count 229 K/uL (130-400) Mean Platelet Volume 10.2 fL (7.4-10.4) Neutrophils (%) (Auto) 64.3 % Lymphocytes (%) (Auto) 23.4 % Monocytes (%) (Auto) 7.8 % Eosinophils (%) (Auto) 4.0 % Basophils (%) (Auto) 0.4 % Neutrophils # (Auto) 4.47 K/uL (1.4-6.5) Lymphocytes # (Auto) 1.63 K/uL (1.2-3.4) Monocytes # (Auto) 0.54 K/uL (0.11-0.59) Eosinophils # (Auto) 0.28 K/uL (0-0.5) Basophils # (Auto) 0.03 K/uL (0-0.2) RDW Standard Deviation 50.6 fL (36.4-46.3) RDW Coefficient of Variation 18.1 % (11.5-14.5) Immature Granulocyte % (Auto) 0.1 % Immature Granulocyte # (Auto) 0.01 K/uL (0.00-0.02) Prothrombin Time 10.7 SECONDS (9.0-12.0) Prothromb Time International Ratio 1.0 (0.9-1.1) Activated Partial Thromboplast Time 26.8 SECONDS (21.0-31.0) Partial Thromboplastin Ratio 1.0 Venous Blood pH 7.34 (7.36-7.41) Venous Blood Partial Pressure CO2 62 mmHg (38.0-50.0) Venous Blood Partial Pressure O2 36 mmHg Venous Blood HCO3 33 mmol/L Venous Blood Oxygen Saturation < 60.0 % Venous Blood Base Excess 5.9 mEq/L Anion Gap 6.0 mmol/L (3-11) Est Creatinine Clear Calc Drug Dose 58.0 ml/min Estimated GFR () 52.0 Estimated GFR (Non- 44.9 BUN/Creatinine Ratio 17.7 (10-20) Lactic Acid Level 1.0 mmol/L (0.4-2.0) Calcium Level 8.9 mg/dl (8.5-10.1) Magnesium Level 2.2 mg/dl (1.8-2.4) Total Bilirubin 0.5 mg/dl (0.2-1) Aspartate Amino Transf (AST/SGOT) 19 U/L (15-37) Alanine Aminotransferase (ALT/SGPT) 17 U/L (12-78) Alkaline Phosphatase 88 U/L (45-117) Ammonia 19.0 umol/L (11-32) Troponin I < 0.015 ng/ml (0-0.045) Total Protein 7.0 gm/dl (6.4-8.2) Albumin 3.0 gm/dl (3.4-5.0) Globulin 4.0 gm/dl (2.5-4.0) Albumin/Globulin Ratio 0.7 (0.9-2) Thyroid Stimulating Hormone (TSH) 0.969 uIu/ml (0.300-4.500) Laboratory results reviewed by me. Medications Administered Medications (Trade) Dose Ordered Sig/Bj Route Start Time Stop Time Status Last Admin Dose Admin Sodium Chloride 250 ml @ 999 mls/hr Q16M STAT IV 02/13/17 13:15 02/13/17 13:30 DC 02/13/17 13:48 999 MLS/HR ECG Indication: altered mental status Rate (beats per minute): 72 Rhythm: sinus rhythm Findings: 1st degree AV block, no acute ischemic change, no ectopy ED Course 1313: The patient was evaluated in room A10. A complete history and physical exam was performed. 1315: Ordered Sodium Chloride 250 ml @ 999 mls/hr IV. Medical Decision The patient is a 76 year old male who presents to the ED with complaints of an altered mental status. Differential diagnoses considered include Medication reaction, sepsis, stroke, dementia, electrolyte imbalance, persistent UTI, intracranial bleeding. There is no leukocytosis. The patient is anemic but this appears baseline looking back at previous testing. No significant electrolyte abnormality, kidney failure or hepatitis. The patient appears to be in a euthyroid state. Ammonia level is not elevated. Lactic acid level is not elevated making sepsis less likely. Urinalysis shows resolving infection versus contamination, urine culture is pending. Blood cultures are pending. Chest film shows some hypoventilation, no obvious focal pneumonia. Brain CT shows no acute bleed or mass effect. EKG shows a sinus rhythm, no acute ischemia. Cardiac enzyme testing is not consistent with acute cardiac injury. Urine tox is negative. VBG demonstrates some mild CO2 retention. The patient was given a small IV saline bolus, he is stable. He remains confused here in the emergency room. The cause for the patient's confusion is not clear. This could be medication related, this could be secondary to infection or just dementia and old age. He is in no condition to be discharged home as his cannot care for him in this condition. I did speak to case management, the on-call hospitalist was consulted. Medication Reconcilliation Current Medication List: was personally reviewed by me Blood Pressure Screening Patient's blood pressure: Normal blood pressure Blood pressure disposition: Did not require urgent referral Impression Primary Impression: Change in mental status Scribe Attestation The scribe's documentation has been prepared under my direction and personally reviewed by me in its entirety. I confirm that the note above accurately reflects all work, treatment, procedures, and medical decision making performed by me. Departure Information Dispostion Being Evaluated By Hospitalist Referrals Syed Valdivia D.O. (PCP)
[2017-02-13 14:17] LABS: URINE APPEARANCE CLEAR (CLEAR); URINE BILIRUBIN NEG (NEG); URINE COLOR DK YELLOW; URINE NITRITE POS (NEG); URINE SPECIFIC GRAVITY 1.016 (1.000-1.030); UROBILINOGEN NEG (NEG); ZZURINE CULT IF INDIC CATH YES
[2017-02-13 14:20] LABS: VEN BLOOD GAS BASE EXCESS 5.9 mEq/L; VENOUS BLOOD GAS PCO2 62 mmHg (38.0-50.0); VENOUS BLOOD GAS PO2 36 mmHg
[2017-02-13 14:21] LABS: VEN BLD GAS O2 SATURATION < 60.0 %
--- NOTE | 2017-02-13 14:26 | DIAGNOSTIC IMAGING REPORT ---
CHEST ONE VIEW PORTABLE CLINICAL HISTORY: Altered mental status. Weakness. COMPARISON STUDY: Chest radiograph February 08, 2017. FINDINGS: This study is compromised due to difficulty positioning and suboptimal penetration. Lung volumes are diminished. This is unchanged. No pneumothorax or pleural effusion is present. There is apparent hazy left basilar opacity. There is no evidence for overt pulmonary edema. Patient is rotated. IMPRESSION: 1. Technically difficult study to interpret. 2. No definite acute findings. Equivocal hazy left basilar opacity which likely reflects artifact or atelectasis. Consolidation could appear similar although is considered less likely. Electronically signed by: Vlad Everett M.D. 02/13/2017 2:25 PM Dictated Date/Time: 02/13/2017 2:23 PM
[2017-02-13 14:27] LABS: MANUAL MICROSCOPIC REQUIRED? NO; REVIEW REQ? NO
[2017-02-13 14:36] LABS: BASO % 0.4 %; BASO ABS # 0.03 K/uL (0-0.2); COMPLETE YES; HEMATOCRIT 35.7 % (42-52); IG% 0.1 %; LYMPH % 23.4 %; LYMPH ABS # 1.63 K/uL (1.2-3.4); MEAN CORPUSCULAR HEMOGLOBIN 22.1 pg (25-34); MEAN CORPUSCULAR HGB CONC 29.1 g/dl (32-36); MEAN PLATELET VOLUME 10.2 fL (7.4-10.4); MONO % 7.8 %; NEUT % 64.3 %; PLATELET COUNT 229 K/uL (130-400); WHITE BLOOD COUNT 6.96 K/uL (4.8-10.8)
[2017-02-13 14:44] LABS: PROTHROMBIN TIME (PATIENT) 10.7 SECONDS (9.0-12.0)
[2017-02-13 14:57] LABS: ALT/SGPT 17 U/L (12-78); BLOOD UREA NITROGEN 27 mg/dl (7-18); BUN/CREATININE RATIO 17.7 (10-20); CALCIUM 8.9 mg/dl (8.5-10.1); CARBON DIOXIDE 30 mmol/L (21-32); CHLORIDE 103 mmol/L (98-107); GLUCOSE 234 mg/dl (70-99); MAGNESIUM 2.2 mg/dl (1.8-2.4); POTASSIUM 4.4 mmol/L (3.5-5.1); SODIUM 139 mmol/L (136-145)
[2017-02-13 15:03] LABS: BENZODIAZEPINE, URINE NEG (NEG); COCAINE,URINE NEG (NEG); PHENCYCLIDINE, URINE NEG (NEG)
[2017-02-13 15:08] LABS: ALB/GLOB RATIO 0.7 (0.9-2); ALKALINE PHOSPHATASE 88 U/L (45-117); AST/SGOT 19 U/L (15-37); THYROID STIMULATING HORMONE 0.969 uIu/ml (0.300-4.500)
[2017-02-13] MEDS ORDERED: LSX40 PO (15:14)
[2017-02-13] MEDS ORDERED: LACT10CA3 PO (15:14)
--- NOTE | 2017-02-13 15:17 | DIAGNOSTIC IMAGING REPORT ---
CT SCAN OF THE BRAIN WITHOUT IV CONTRAST CLINICAL HISTORY: Weakness. Change in mental status. COMPARISON STUDY: CT of the brain dated 02/07/2017. TECHNIQUE: Unenhanced axial CT scan of the brain is performed from the vertex to the skull base. CT DOSE: 729.78 mGycm FINDINGS: Brain parenchyma: There are age-related involutional changes noting mild subcortical and periventricular microangiopathic change. There is no hemorrhage, mass effect, or evidence of acute territorial ischemia by CT criteria. Montejo-white matter is preserved. No extra-axial fluid collection is seen. Ventricles, sulci, cisterns: Prominent secondary to involutional change. Intracranial vasculature: There is atherosclerotic calcification of the cavernous carotid arteries. Calvarium: Unremarkable. Sinuses and mastoids: Trace mucosal thickening is seen in the right maxillary antrum. The remaining visualized paranasal sinuses are clear. The mastoid air cells are well pneumatized. Orbits: The bony orbits are grossly intact. There are bilateral ocular lens implants. IMPRESSION: There is no hemorrhage, mass effect, or evidence of acute territorial ischemia by CT criteria. Electronically signed by: Porfirio Santillan M.D. 02/13/2017 3:16 PM Dictated Date/Time: 02/13/2017 3:13 PM
[2017-02-13 15:57] LABS: ARTERIAL BLD GAS O2 SATURATION 86.5 % (90-95); ARTERIAL BLOOD GAS BASE EXCESS 5.7 mEq/L (-9-1.8); ARTERIAL BLOOD GAS HCO3 32 mmol/L (19-24); ARTERIAL BLOOD GAS PO2 57 mm/Hg (80-95)
[2017-02-13 16:06] LABS: ALLEN TEST POS (POS); O2 ADMINISTRATION 2 L
[2017-02-13] MEDS ORDERED: ONDANSETRON INJ 2 MG/ML 2 ML VIAL IV PRN (16:15)
[2017-02-13] MEDS ORDERED: SODIUM CHLORIDE 0.9% 500ML 500 ML IV SCH (16:30)
[2017-02-13 16:40] VITALS: Ht 177.8 cm; Wt 125.4 kg
[2017-02-13] MEDS ORDERED: FOLI1TAB7 PO (16:41)
[2017-02-13] MEDS ORDERED: GLUCOSE 10 TABS/TUBE PO PRN (17:00)
[2017-02-13] MEDS ORDERED: GLUCAGON FOR INJ 1 MG VIAL SQ PRN (17:00)
[2017-02-13] MEDS ORDERED: DEXTROSE 50% 50 ML SYR IV PRN (17:00)
[2017-02-13] MEDS ORDERED: GLUCOSE 40% GEL 15 GM TUBE PO PRN (17:00)
--- NOTE | 2017-02-13 17:42 | History and Physical ---
History & Physical Date & Time of Service: Feb 13, 2017 ~ 16:00 Chief Complaint: Confusion Primary Care Physician: Syed Valdivia D.O. History of Present Illness 76 year old male who presents to the ED with confusion. Patient was recently admitted to [facility] 02/03 - 02/09 and was treated for altered mental status, UTI, wound infection, and CHF. On admission, patient had altered mental status and acute on chronic hypercapnic respiratory failure requiring intubation. He was successfully extubated and used PRN BiPap through the rest of his stay. He was also started on Provigil to help with day time sleepiness. However patient has not been taking this medication since discharge because it was not covered by his insurance. He was also treated for acute on chronic diastolic CHF with diuresis. UTI and wounds grew enterococcus and previous right great toe wound wound grew MRSA and was treated with Vanco and subsequently Augmentin and Doxy to finish the course. Patient is currently unable to provide much history. I spoke to his who reports he has been extremely weak since being home. He also has been getting more confused and sleepy. She reports that he normally can stand and transfer however he has had trouble doing that. He fell to his knees yesterday while transferring out of his chair. No syncopal events. She reports his foot wounds have been healing well and there has not been any drainage. She denies any fevers. His blood sugars have been running in this high 100s-200s. She denies any other symptoms. In the ED, patient's work up is unremarkable. Past Medical/Surgical History Medical Problems: (1) Anxiety Status: Chronic (2) Asthma, cough variant Status: Chronic (3) Benign prostatic hyperplasia Status: Chronic (4) Depression Status: Chronic (5) Diabetes mellitus type 2 Status: Chronic (6) Diabetic neuropathy Status: Chronic (7) Diastolic heart failure Status: Chronic (8) Dyslipidemia Status: Chronic (9) Essential hypertension Status: Chronic (10) Hunter catheter in place Status: Chronic (11) Gastroesophageal reflux disease Status: Chronic (12) Legal blindness Status: Chronic (13) Morbid obesity Permanent Comment: BMI > 40 Status: Chronic (14) Nocturnal hypoxemia Status: Chronic (15) Obesity hypoventilation syndrome Status: Chronic (16) Peripheral venous insufficiency Status: Chronic (17) Sleep apnea Permanent Comment: noncompliant with CPAP Status: Chronic Surgical Problems: (1) S/P cataract surgery Status: Chronic (2) S/P colonoscopy Permanent Comment: 11/15 hyperplastic polyp--repeat 10 years Status: Chronic (3) S/p eyelid surgery Status: Chronic (4) S/P foot surgery, left Status: Chronic (5) S/P panniculectomy Status: Chronic (6) S/P tonsillectomy Status: Chronic Family History Diabetes mellitus MOTHER BROTHER GRANDMOTHER FH: CAD (coronary artery disease) FATHER (CABG) FH: CHF (congestive heart failure) MOTHER BROTHER GI disorder Hypertension MOTHER Social History Smoking Status: Former Smoker Alcohol Use: none Marital Status: Housing status: long term Immunizations History of Influenza Vaccine: Yes Influenza Vaccine Date: Jan 23, 2017 History of Tetanus Vaccine?: Yes Tetanus Immunization Date: Jun 02, 2013 History of Pneumococcal: Yes Pneumococcal Date: Aug 31, 2015 History of Hepatitis B Vaccine: Unknown Multi-Drug Resistant Organisms History of MDRO: Yes Type of MDRO: VRE, MRSA Allergies Coded Allergies: Hydromorphone (Verified Adverse Reaction, Severe, DELIRIUM, UNRESPONSIVENESS, 02/13/17) UNRESPONSIVENESS Oxycodone (Verified Adverse Reaction, Unknown, Trouble coming off, 02/13/17 ) Repoted by , NOT ALLERGIC TO THEM Propoxyphene (Verified Adverse Reaction, Unknown, Trouble coming off of Darvocet., 02/13/17) Reported by Home Medications Scheduled Aspirin (Aspirin Ec), 81 MG PO DAILY Finasteride (Proscar), 5 MG PO QAM Folic Acid (Folvite), 1 MG PO DAILY Furosemide (Furosemide), 2 TAB PO BID Gabapentin (Neurontin), 600 MG PO QID Insulin Glargine (Lantus Solostar), 20 UNITS SC QPM Lactobacillus-Inulin (Culturelle), 1 CAP PO DAILY Magnesium Oxide (Mag-Ox), 400 MG PO DAILY Metolazone (Zaroxolyn), 5 MG PO 2XWK Metoprolol Tartrate (Lopressor) (Lopressor), 12.5 MG PO BID Modafinil (Provigil), 100 MG PO QAM Multivitamin (Multivitamin), 1 TAB PO DAILY Nystatin (Topical) (Nyata), 1 APPL TOP TID Nystatin-Triamcinolone (Nystatin/Triamcinolone), 1 APPLN TOP BID Omeprazole (Prilosec), 20 MG PO QAM Potassium Ext Rel (Klor-Con), 40 MEQ PO BID Simvastatin (Zocor), 40 MG PO HS Tamsulosin HCl (Tamsulosin HCl), 1 CAP PO HS Venlafaxine Hcl (Effexor), 75 MG PO BID Scheduled PRN Insulin Aspart (Novolog Penfill), 1 UNIT SC AC PRN for hyperglycemia Review of Systems Constitutional- no fever; no weight loss Eyes- no acute visual changes ENT- no sinus drainage; no pharyngitis Pulmonary- no cough, no wheezing, no shortness of breath Cardiac- no chest pain, no palpitations, no orthopnea, no dependent edema GI- no nausea, no vomiting, no diarrhea, no melena, no hematochezia - no dysuria, no hematuria Musculoskeletal- no arthralgias, no myalgias Derm- no rashes, no new skin lesions, no changing skin lesions Hematologic- no unusual bruising, no unusual bleeding Lymphatics- no adenopathy Endocrine- no polyuria or polydipsia; no heat or cold intolerance Neuro- (+) NOTED ABOVE Psych- no anxiety, no depression Physical Exam Vital Signs Date Time Temp Pulse Resp B/P (MAP) Pulse Ox O2 Delivery O2 Flow Rate FiO2 02/13/17 16:40 Nasal Cannula 02/13/17 15:45 168/81 02/13/17 14:38 68 17 139/48 99 Room Air 02/13/17 13:43 100 16 127/69 100 Nasal Cannula 3.0 02/13/17 13:36 70 02/13/17 13:29 94 Nasal Cannula 3.0 02/13/17 12:45 99 Nasal Cannula 3.0 02/13/17 12:39 37.1 76 18 116/68 89 Room Air General Appearance: WD/WN, no apparent distress Head: normocephalic, atraumatic Eyes: normal inspection ENT: hearing grossly normal, + pertinent finding (dry mucous membranes) Neck: supple, no JVD Respiratory/Chest: lungs clear, no respiratory distress Cardiovascular: regular rate, rhythm, + pertinent finding (trace edema BLLE) Abdomen/GI: normal bowel sounds, non tender, soft Extremities/Musculoskelatal: normal inspection, no calf tenderness Neurologic/Psych: + pertinent finding (patient is drowsy however arouses to loud verbal stimuli but falls back to sleep quickly; when he awakens he initially has some myoclonic jerking; moving all extremities; no gross focal deficits noted) Skin: + pertinent finding (multiple wounds noted: right great toe ulcer with eschar, right 2nd toe dried ulcer, left 2nd toe dorsal and plantar ulcers noted with eschar; left wheeler dried ulcers with some eschar; no significant surrounding erythema or drainage noted to any of the wounds) Diagnostics Laboratory Results Results Past 24 Hours Test 02/13/17 13:43 02/13/17 14:01 02/13/17 15:36 Range/Units Urine Color DK YELLOW Urine Appearance CLEAR CLEAR Urine pH 5.0 4.5-7.5 Urine Specific [place] 1.016 1.000-1.030 Urine Protein NEG NEG Urine Glucose (UA) NEG NEG Urine Ketones NEG NEG Urine Occult Blood NEG NEG Urine Nitrite POS NEG Urine Bilirubin NEG NEG Urine Urobilinogen NEG NEG Urine Leukocyte Esterase MODERATE NEG Urine WBC (Auto) 10-30 0-5 /hpf Urine RBC (Auto) 5-10 0-4 /hpf Urine Hyaline Casts (Auto) 1-5 0-5 /lpf Urine Epithelial Cells (Auto) 10-20 0-5 /lpf Urine Bacteria (Auto) NEG NEG Urine Opiates Screen NEG NEG Urine Methadone, Qualitative NEG NEG Urine Barbiturates NEG NEG Urine Phencyclidine (PCP) Level NEG NEG Ur Amphetamine/Methamphetamine NEG NEG MDMA (Ecstasy) Screen NEG NEG Urine Benzodiazepines Screen NEG NEG Urine Cocaine Metabolite NEG NEG Urine Marijuana (THC) NEG NEG White Blood Count 6.96 4.8-10.8 K/uL Red Blood Count 4.70 4.7-6.1 M/uL Hemoglobin 10.4 14.0-18.0 g/dL Hematocrit 35.7 42-52 % Mean Corpuscular Volume 76.0 80-100 fL Mean Corpuscular Hemoglobin 22.1 25-34 pg Mean Corpuscular Hemoglobin Concent 29.1 32-36 g/dl Platelet Count 229 130-400 K/uL Mean Platelet Volume 10.2 7.4-10.4 fL Neutrophils (%) (Auto) 64.3 % Lymphocytes (%) (Auto) 23.4 % Monocytes (%) (Auto) 7.8 % Eosinophils (%) (Auto) 4.0 % Basophils (%) (Auto) 0.4 % Neutrophils # (Auto) 4.47 1.4-6.5 K/uL Lymphocytes # (Auto) 1.63 1.2-3.4 K/uL Monocytes # (Auto) 0.54 0.11-0.59 K/uL Eosinophils # (Auto) 0.28 0-0.5 K/uL Basophils # (Auto) 0.03 0-0.2 K/uL RDW Standard Deviation 50.6 36.4-46.3 fL RDW Coefficient of Variation 18.1 11.5-14.5 % Immature Granulocyte % (Auto) 0.1 % Immature Granulocyte # (Auto) 0.01 0.00-0.02 K/uL Prothrombin Time 10.7 9.0-12.0 SECONDS Prothromb Time International Ratio 1.0 0.9-1.1 Activated Partial Thromboplast Time 26.8 21.0-31.0 SECONDS Partial Thromboplastin Ratio 1.0 Venous Blood pH 7.34 7.36-7.41 Venous Blood Partial Pressure CO2 62 38.0-50.0 mmHg Venous Blood Partial Pressure O2 36 mmHg Venous Blood HCO3 33 mmol/L Venous Blood Oxygen Saturation < 60.0 % Venous Blood Base Excess 5.9 mEq/L Sodium Level 139 136-145 mmol/L Potassium Level 4.4 3.5-5.1 mmol/L Chloride Level 103 98-107 mmol/L Carbon Dioxide Level 30 21-32 mmol/L Anion Gap 6.0 3-11 mmol/L Blood Urea Nitrogen 27 7-18 mg/dl Creatinine 1.50 0.60-1.40 mg/dl Est Creatinine Clear Calc Drug Dose 58.0 ml/min Estimated GFR () 52.0 Estimated GFR (Non- 44.9 BUN/Creatinine Ratio 17.7 10-20 Random Glucose 234 70-99 mg/dl Lactic Acid Level 1.0 0.4-2.0 mmol/L Calcium Level 8.9 8.5-10.1 mg/dl Magnesium Level 2.2 1.8-2.4 mg/dl Total Bilirubin 0.5 0.2-1 mg/dl Aspartate Amino Transf (AST/SGOT) 19 15-37 U/L Alanine Aminotransferase (ALT/SGPT) 17 12-78 U/L Alkaline Phosphatase 88 45-117 U/L Ammonia 19.0 11-32 umol/L Troponin I < 0.015 0-0.045 ng/ml Total Protein 7.0 6.4-8.2 gm/dl Albumin 3.0 3.4-5.0 gm/dl Globulin 4.0 2.5-4.0 gm/dl Albumin/Globulin Ratio 0.7 0.9-2 Thyroid Stimulating Hormone (TSH) 0.969 0.300-4.500 uIu/ml Arterial Blood pH 7.40 7.35-7.45 Arterial Blood Partial Pressure CO2 52 35-46 mmHg Arterial Blood Partial Pressure O2 57 80-95 mm/Hg Arterial Blood HCO3 32 19-24 mmol/L Arterial Blood Oxygen Saturation 86.5 90-95 % Arterial Blood Base Excess 5.7 -9-1.8 mEq/L Arterial Blood Gas Delivery 2 L Khoa Test POS POS Microbiology Results 02/13/17 Blood Culture, Received Pending 02/13/17 Blood Culture, Received Pending 02/13/17 Urine Culture, Received Pending Diagnostic Radiology CT HEAD IMPRESSION: There is no hemorrhage, mass effect, or evidence of acute territorial ischemia by CT criteria. CXR IMPRESSION: 1. Technically difficult study to interpret. 2. No definite acute findings. Equivocal hazy left basilar opacity which likely reflects artifact or atelectasis. Consolidation could appear similar although is considered less likely. Impression Assessment and Plan ALTERED MENTAL STATUS - admit to tele - patient presenting with increasing weakness and altered mental status x 4 days ; recent admission for similar presentation - in the ED, patient's work up is mostly unremarkable; head CT negative - patient was started on Provigil during last admission however has not been taking since he has been home - GILLES with CPAP noncompliance likely contributing - ABG shows compensated respiratory acidosis - will try patient on BiPap - no obvious signs of infection so will hold on antibiotics for now - just completed antibiotic course for infected wounds and UTI; U/A appears abnormal however likely colonization due to chronic hunter - ? seizures - will obtain EEG and consult neuro - hold potentiality sedating meds - Provigil, gabapentin, and venlafaxine MILD RENEA - baseline creat runs in the low 1's - up to 1.5 today - likely prerenal - will give a small amount of fluid slow - hold diuretics BPH WITH CHRONIC HUNTER DM - hgb a1c 10.1 01/2017 - Lantus + SSI - pharmacy glycemic consult HTN - BP controlled, continue metoprolol CHRONIC DIASTOLIC CHF - patient appears to be on the dry side with RENEA - holding diuretics for now GILLES - non compliant with CPAP DVT PROPHYLAXIS - SQ Heparin CODE STATUS - Patient is a full code as per my discussion with patient's , Cherie. DISPO - In my clinical judgment this beneficiary meets acute admission criteria, established by [facility], that includes being hospitalized through two midnights. - PT/OT, case management consults - patient's requesting short term rehab stay post discharge ATTENDING ADDENDUM care coordinated with SADE Ventura please refer to her notes for full details, I agree with her notes patient seen and examined, records reviewed by myself as well on exam, patient seen resting in bed, easily rousable, oriented x 2 answers questions appropriately but occasionally veers off topic denies dyspnea, cough no headache, abdominal pain, changes with BM or urination admits to not using CPAP no other symptoms VS noted and reviewed oriented x 3, not in distress, speaks in sentences with no effort nor accessory muscle use normal rate, regular rhythm, no murmurs clear breath sounds bilaterally non distended, soft, nontender no bipedal edema, mild erythema, no warmth apart from occasional tangential thoughts and mumbling words, no other gross focal deficits WBC 6.9 Crea 1.5 ASSESSMENT/PLAN> ALTERED MENTAL STATUS - unclear etiology - from GILLES and non adherence to CPAP? patient encouraged to use CPAP at HS - from medications? hold Gabapentin, Effexor - underlying seizure disorder? EEG, neurology consulted - no signs of active infection at this time ACUTE RENAL FAILURE - hold Lasix gentle IV fluids other diagnoses and plan of care as per SADE Ventura's notes Fer Beltran MD Advanced Directives Existing Living Will: No (unsure) Existing Power of Patient Financial Advocate: No (unsure) VTE Prophylaxis VTE Risk Assessment Done? Y/N: Yes Risk Level: Moderate
[2017-02-13 18:07] VITALS: BP 131/58; PULSE 67; TEMP 36.6; O2SAT 100
[2017-02-13] MEDS ORDERED: PHARMACY GLYCEMIC MGMT CONSULT PRN (18:08)
[2017-02-13] MEDS ORDERED: CETIRIZINE HCL 10 MG TAB PO ONE (18:21)
[2017-02-13] MEDS ORDERED: CETIRIZINE HCL 10 MG TAB PO PRN (18:30)
[2017-02-13 18:33] VITALS: BP 107/61; PULSE 66; TEMP 36.7; O2SAT 97
[2017-02-13 20:00] VITALS: O2SAT 97
[2017-02-13 21:13] VITALS: PULSE 79; O2SAT 93
[2017-02-13] MEDS: NYSTATIN POWDER 15GM BTL EXT SCH (21:39)
[2017-02-13] MEDS: NYSTATIN/TRIAMCINOLONE CR 15 GM TUBE EXT SCH (21:40)
[2017-02-13] MEDS: TAMSULOSIN HCL 0.4 MG CAP PO SCH (21:40)
[2017-02-13] MEDS: SIMVASTATIN 40 MG TAB PO SCH (21:41)
[2017-02-13] MEDS: METOPROLOL TARTRATE 25 MG TAB PO SCH (21:41)
[2017-02-13] MEDS: INSULIN ASPART 100 UNITS/ML 3 ML PEN SC SCH (21:44)
[2017-02-13] MEDS: INSULIN GLARGINE SOLOSTAR 100 UNITS/ML 3 ML PEN SC SCH (21:45)
[2017-02-13] MEDS: HEPARIN SOD 5000 UNIT/0.5 ML CARP SQ SCH (21:45)
[2017-02-13 21:47] VITALS: BP 137/66; PULSE 67
[2017-02-13 23:16] VITALS: BP 139/78; PULSE 72; TEMP 36.7; O2SAT 93
[2017-02-14] VITALS (8 sets, daily range): BP systolic 108–145; BP diastolic 49–80; PULSE 63–73; TEMP 36.6–37.2; O2SAT 90–95
[2017-02-14] MEDS: INSULIN ASPART 100 UNITS/ML 3 ML PEN SC SCH ×6 (00:27→21:04)
[2017-02-14] MEDS: HEPARIN SOD 5000 UNIT/0.5 ML CARP SQ SCH ×3 (05:45→21:06)
[2017-02-14 06:50] LABS: HEMATOCRIT 35.5 % (42-52); MEAN CELL VOLUME 75.9 fL (80-100); MEAN CORPUSCULAR HEMOGLOBIN 21.8 pg (25-34); MEAN CORPUSCULAR HGB CONC 28.7 g/dl (32-36); MEAN PLATELET VOLUME 10.3 fL (7.4-10.4); PLATELET COUNT 223 K/uL (130-400); RED BLOOD COUNT 4.68 M/uL (4.7-6.1); WHITE BLOOD COUNT 7.94 K/uL (4.8-10.8)
[2017-02-14 07:22] LABS: BUN/CREATININE RATIO 17.4 (10-20); CALCIUM 8.8 mg/dl (8.5-10.1); CREATININE 1.2 mg/dl (0.60-1.40); POTASSIUM 3.6 mmol/L (3.5-5.1)
--- NOTE | 2017-02-14 07:27 | Clinical Documentation Query ---
CLINICAL DOCUMENTATION QUERY A 76 year old male who presents to the ED with confusion. In your clinical opinion is this patient being managed for: ( X ) Encephalopathy ( ) Not Agree ( ) Other explanation of clinical findings (Please Explain) ( ) Unable to determine (Please Define) ( ) Need to Discuss The medical record reflects the following clinical findings, treatment, and risk factors. Clinical Indicators: Altered mental status, hypoxia, lethargy, tremors Treatment: Telemetry, serial lab monitoring, neuro consult, IV hydration Risk Factors: Age, fall risk, hx UTI and wound infections and CHF Please clarify and document your clinical opinion in the progress notes and discharge summary. Terms such as "probable", "suspected", "likely", "questionable", "possible", or "still to be ruled out" are acceptable. IF IN AGREEMENT, YOU MUST DOCUMENT ABOVE DIAGNOSTIC STATEMENT IN DAILY PROGRESS NOTES AND DISCHARGE SUMMARY. This document is not part of the patient's record. Thank You, Jen Catalan RN [phone]
[2017-02-14] MEDS: NYSTATIN/TRIAMCINOLONE CR 15 GM TUBE EXT SCH ×2 (08:30→21:10)
[2017-02-14] MEDS: NYSTATIN POWDER 15GM BTL EXT SCH ×3 (08:30→21:10)
[2017-02-14] MEDS: LACTOBACILLUS ACIDOPHILUS (FLORANEX) TAB PO SCH (08:32)
[2017-02-14] MEDS: FINASTERIDE 5 MG TAB PO SCH (08:32)
[2017-02-14] MEDS: METOPROLOL TARTRATE 25 MG TAB PO SCH ×2 (08:32→21:11)
[2017-02-14] MEDS: ASPIRIN 81 MG ECTAB PO SCH (08:32)
[2017-02-14] MEDS: INSULIN GLARGINE SOLOSTAR 100 UNITS/ML 3 ML PEN SC SCH ×2 (08:32→21:05)
[2017-02-14] MEDS: MAGNESIUM OXIDE 400 MG TAB PO SCH (08:33)
[2017-02-14] MEDS: PANTOprazole SOD 40 MG TAB PO SCH (08:33)
[2017-02-14] MEDS: MULTIVITAMIN TAB PO SCH (08:33)
--- NOTE | 2017-02-14 11:59 | Pharmacy Progress Note ---
Glycemic Control Intl Consult Date of Service Feb 14, 2017. Scope Glycemic Pharmacist consulted by SADE Mane on 02/13/17 for glycemic control and to write orders per [facility] inpatient glycemic control protocol Objective Weight (Kilograms): 126.500 Accuchecks BSG (last 24hrs): Test 02/13/17 14:01 02/13/17 18:11 02/13/17 21:37 02/13/17 23:59 Random Glucose 234 mg/dl (70-99) Bedside Glucose 212 mg/dl (70-99) 233 mg/dl (70-99) 169 mg/dl (70-99) Test 02/14/17 02:25 02/14/17 02:43 02/14/17 04:01 02/14/17 06:15 Bedside Glucose 61 mg/dl (70-99) 101 mg/dl (70-99) 114 mg/dl (70-99) Random Glucose 103 mg/dl (70-99) Test 02/14/17 11:11 Bedside Glucose 96 mg/dl (70-99) Laboratory Data (last 24hrs) Test 02/13/17 14:01 02/14/17 06:15 Anion Gap 6.0 mmol/L 5.0 mmol/L BUN/Creatinine Ratio 17.7 17.4 Blood Urea Nitrogen 27 mg/dl 21 mg/dl Creatinine 1.50 mg/dl 1.20 mg/dl Potassium Level 4.4 mmol/L 3.6 mmol/L Sodium Level 139 mmol/L 141 mmol/L White Blood Count 6.96 K/uL 7.94 K/uL Red Blood Count 4.70 M/uL Hemoglobin 10.4 g/dL Hematocrit 35.7 % Mean Corpuscular Volume 76.0 fL Mean Corpuscular Hemoglobin 22.1 pg Mean Corpuscular Hemoglobin Concent 29.1 g/dl Platelet Count 229 K/uL Mean Platelet Volume 10.2 fL Neutrophils (%) (Auto) 64.3 % Lymphocytes (%) (Auto) 23.4 % Monocytes (%) (Auto) 7.8 % Eosinophils (%) (Auto) 4.0 % Basophils (%) (Auto) 0.4 % Neutrophils # (Auto) 4.47 K/uL Lymphocytes # (Auto) 1.63 K/uL Monocytes # (Auto) 0.54 K/uL Eosinophils # (Auto) 0.28 K/uL Basophils # (Auto) 0.03 K/uL Recent Pertinent Medications Outpatient Anti-diabetic Regimen: * Lantus 20 units SQ QPM * Novolog sliding scale 2-8 units * A1c = 10.1 % 02/04/17 The patient is currently receiving: * Basal insulin: Lantus every 12 hours * For BSG < 120mg/dl - 4 units * For BSG 120-180mg/dl - 8 units * For BSG > 180mg/dl - 10 units * Correctional Insulin: Novolog Correction per scale ACHS Goal Range: Low 120 mg/dL - High 160 mg/dL Correction Factor: 30 mg/dL/unit * Prandial insulin: Per carb ratio of 1 unit per 10 grams CHO consumed Risk Factors for Insulin Resistance: * Diet: Clear liquid Assessment & Plan ASSESSMENT: * 76 year old male type 2 diabetic, uncontrolled as outpatient, known to pharmacy glycemic service, admitted with AMS * Pt hyperglycemic on admission, started on home dose of Lantus, split BID dosing as inpatient on clear liquid diet, BSG did fall to 61mg/dl at 0200 and was treated with OJ last night, and was then up to 225mg/dl with breakfast. BSG at 96mg/dl now prior to lunch. * Will loosen CF and CR and keep Lantus on a scale per BSG at this time to prevent further hypoglycemia. * ADA & AACE recommend a goal blood sugar range 140-180 mg/dl for the majority of critically ill & non-critically ill patients. However, more stringent targets may be selected in individual cases. For patient's age and co- morbidities and recent hypoglycemia, will use 120-150mg/dl. PLAN FOR INPATIENT GLYCEMIC CONTROL: * Basal insulin with LANTUS SQ BID * For BSG < 120mg/dl - 4 units * For BSG 120-180mg/dl - 8 units * For BSG > 180mg/dl - 10 units * Correctional Insulin with NOVOLOG per scale ACHS or Q6hrs while NPO * Goal Range: Low 120 mg/dL - High 150 mg/dL * Correction Factor: 35 mg/dL/unit * Nutritional / Prandial insulin per carb ratio of 1 unit per 12 grams CHO consumed * Please note that the plan above was derived based on current level of insulin resistance and hospital stress. These recommendations are appropriate for inpatient admission only. Plan of care upon discharge will need to be reassessed to avoid potential outpatient hypo/hyperglycemia. Thank you.
--- NOTE | 2017-02-14 14:25 | Neurology Consultation ---
Neurology Consultation Date of Consultation: Feb 14, 2017. Attending Physician: Fer Beltran MD Primary Care Physician: Syed Valdivia D.OMalcolm Reason for Consultation: unexplained encephalopathy History of Present Illness Source: patient, hospital records Evelio is a 76 year old male who presents to the ED with confusion. He had an admission on 02/03 - 02/09 and was treated for altered mental status, UTI, wound infection, and CHF. He had altered mental status and acute on chronic hypercapnic respiratory failure requiring intubation. He was successfully extubated and used PRN BiPap through the rest of his stay. He was also started on Provigil to help with day time sleepiness but he was not taking it at home because it was not covered by insurance. He was also treated for acute on chronic diastolic CHF with diuresis. UTI and wounds grew enterococcus and previous right great toe wound wound grew MRSA and was treated with Vanco and subsequently Augmentin and Doxy to finish the course.He was getting more confused and sleepy at home. At baseline he is wheelchair bound but does transfer at home but he fell with transferring to the bed. He states he takes Ultram at home but uncertain how often he takes it. He has macular degeneration which impairs his vision greatly. He has a bad right knee and severe DM peripheral neuropathy. denies CP, SOB, abdominal pain, N, V, bowel or bladder issues. Past Medical/Surgical History Medical Problems: (1) Acute urinary retention Status: Acute (2) Altered mental status Status: Acute (3) Altered mental status Status: Acute (4) Bronchitis Status: Acute (5) CHF (congestive heart failure) Status: Acute (6) CHF (congestive heart failure) Status: Acute (7) Complication of catheter Status: Acute (8) Dystonic drug reaction Status: Acute (9) Failure to thrive Status: Acute (10) Hypercarbia Status: Acute (11) Hypoglycemia Status: Acute (12) Hypoxemia Status: Acute (13) Hypoxia Status: Acute (14) Hypoxia Status: Acute (15) Malfunction of Osorio catheter Status: Acute (16) Pneumonia Status: Acute (17) Respiratory acidosis Status: Acute (18) Right flank pain Status: Acute (19) Sepsis Status: Acute (20) Urethral pain Status: Acute (21) Urinary retention Status: Acute (22) Urinary retention Status: Acute (23) Urinary tract infection Status: Acute (24) UTI (urinary tract infection) Status: Acute (25) UTI (urinary tract infection) Status: Acute (26) UTI (urinary tract infection) Status: Acute (27) UTI (urinary tract infection) Status: Acute (28) UTI (urinary tract infection) due to urinary indwelling catheter Status: Acute (29) Weakness Status: Acute Social History Smoking Status: Former smoker Alcohol Use: none Marital Status: Housing Status: lives with family Allergies Coded Allergies: Hydromorphone (Verified Adverse Reaction, Severe, DELIRIUM, UNRESPONSIVENESS, 02/13/17) UNRESPONSIVENESS Oxycodone (Verified Adverse Reaction, Unknown, Trouble coming off, 02/13/17 ) Repoted by , NOT ALLERGIC TO THEM Propoxyphene (Verified Adverse Reaction, Unknown, Trouble coming off of Darvocet., 02/13/17) Reported by Current Inpatient Medications Current Inpatient Medications Medications (Trade) Dose Ordered Sig/Bj Route Start Time Stop Time Status Last Admin Dose Admin Heparin Sodium (Porcine) (Heparin Sq 5000 Unit/0.5ml) 5,000 unit Q8 SQ 02/13/17 22:00 03/15/17 21:59 02/14/17 05:45 5,000 UNIT Acetaminophen (Tylenol Tab) 650 mg Q4H PRN PO 02/13/17 16:15 03/15/17 16:14 Ondansetron HCl (Zofran Inj) 4 mg Q6H PRN IV 02/13/17 16:15 03/15/17 16:14 Insulin Aspart (novoLOG ASPART) SLIDING SCALE If C... ACHS SC 02/13/17 21:00 03/15/17 20:59 02/14/17 12:11 3 UNITS Glucose (Glucose 40% Gel) 15-30 GRAMS 15 GRAMS... UD PRN PO 02/13/17 17:00 03/15/17 16:59 Glucose (Glucose Chew Tab) 4-8 Tablets 4 Tabl... UD PRN PO 02/13/17 17:00 03/15/17 16:59 Dextrose (Dextrose 50% 50ML Syringe) 25-50ML OF 50% DW IV FOR... UD PRN IV 02/13/17 17:00 03/15/17 16:59 Glucagon (Glucagon Inj) 1 mg UD PRN SQ 02/13/17 17:00 03/15/17 16:59 Miscellaneous Information (Consult Glycemic Management Pharmacy) 1 ea UD PRN N/A 02/13/17 18:08 03/15/17 18:07 Aspirin (Ecotrin Tab) 81 mg DAILY PO 02/14/17 09:00 03/16/17 08:59 02/14/17 08:32 81 MG Finasteride (Proscar Tab) 5 mg QAM PO 02/14/17 09:00 03/16/17 08:59 02/14/17 08:32 5 MG Folic Acid (Folvite Tab) 1 mg DAILY PO 02/14/17 09:00 03/16/17 08:59 02/14/17 08:32 1 MG Magnesium Oxide (Mag-Ox Tab) 400 mg DAILY PO 02/14/17 09:00 03/16/17 08:59 02/14/17 08:33 400 MG Metoprolol Tartrate (Lopressor Tab) 12.5 mg BID PO 02/13/17 21:00 03/15/17 20:59 02/14/17 08:32 12.5 MG Multivitamins (Multivitamin Tab) 1 tab DAILY PO 02/14/17 09:00 03/16/17 08:59 02/14/17 08:33 1 TAB Nystatin (Mycostatin Powder) 1 appln TID EXT 02/13/17 21:00 03/15/17 20:59 02/14/17 08:30 1 APPLN Nystatin/ Triamcinolone Acetonide (Mycogen II Crm) 1 appln BID EXT 02/13/17 21:00 03/15/17 20:59 02/13/17 21:40 1 APPLN Simvastatin (Zocor Tab) 40 mg HS PO 02/13/17 21:00 03/15/17 20:59 02/13/17 21:41 40 MG Tamsulosin HCl (Flomax Cap) 0.4 mg HS PO 02/13/17 21:00 03/15/17 20:59 02/13/17 21:40 0.4 MG Lactobacillus Acidophilus (Floranex Tab) 4 tab DAILY PO 02/14/17 09:00 03/16/17 08:59 02/14/17 08:32 4 TAB Pantoprazole Sodium (Protonix Tab) 40 mg QAM PO 02/14/17 09:00 03/16/17 08:59 02/14/17 08:33 40 MG Cetirizine HCl (zyrTEC TAB) 10 mg DAILY PRN PO 02/13/17 18:30 03/15/17 18:29 Insulin Glargine (Lantus Solostar Pen) SEE PROTOCOL TEXT BID SC 02/13/17 21:00 03/15/17 20:59 02/14/17 08:32 10 UNITS Physical Exam Vital Signs (Past 24 Hrs): Date Time Temp Pulse Resp B/P (MAP) Pulse Ox O2 Delivery O2 Flow Rate FiO2 02/14/17 11:57 Nasal Cannula 2.0 02/14/17 10:58 36.8 64 18 144/80 (101) 95 Room Air 02/14/17 08:00 Nasal Cannula 2.0 02/14/17 07:57 37.2 72 18 123/72 (89) 93 2.0 02/14/17 04:31 36.8 69 18 108/49 (68) 93 Nasal Cannula 2.0 02/14/17 04:00 Nasal Cannula 2.0 02/14/17 00:00 Nasal Cannula 2.0 02/13/17 23:16 36.7 72 20 139/78 (98) 93 Nasal Cannula 2.0 02/13/17 21:47 67 137/66 (89) 02/13/17 21:13 79 93 2.0 02/13/17 20:00 97 Nasal Cannula 2.0 02/13/17 18:33 36.7 66 18 107/61 (76) 97 Nasal Cannula 2.0 02/13/17 18:07 36.6 67 17 131/58 (82) 100 Nasal Cannula 2.0 02/13/17 17:32 157/64 02/13/17 17:20 67 20 93 02/13/17 17:01 184/73 02/13/17 16:50 78 22 02/13/17 16:40 Nasal Cannula 02/13/17 16:31 178/91 02/13/17 16:20 71 22 87 02/13/17 16:01 177/81 02/13/17 15:50 69 15 100 02/13/17 15:45 168/81 02/13/17 14:38 68 17 139/48 99 Room Air Physical Exam: Constitutional: nourished obese Ears, Nose, Mouth and Throat: mucous membranes moist, no injection and skin normal, eyes normal Cardiovascular: normal S-1 and S-2 and regular rate and rhythm Respiratory: course breath sounds Musculoskeletal: 1+pitting edema with stasis, some scabbed areas on arms and legs, decreased mobility in left shoulder Skin: no stigmata of neurocutaneous disease noted and normal and intact Eyes: extraocular muscles intact (EOMI) and pupils equal, round and reactive to light (PERRL), gross peripheral vision on left intact right decreased NEUROLOGIC EXAMINATION: Mental status: Alert and interactive Oriented [facility], 2017, knows his full address and lives with for 50 years. Oriented to person Speech fluent with no evidence of aphasia Cranial Nerves smile eye brow raise symmetric, tongue midline Reflexes: decreased LE reflexes bilaterally Sensory: cool touch decreased to knee, GT proprioception bilaterally absent Coordination: finger to nose with bipass due to vision issues Gait/Stance: Posture normal. Gait normal: with steady with steps, base, turning, heel and toe walking and tandem gait. 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 5/5 bilaterally hip flex left 5/5 right 4/5 plantar flex ext decreased Laboratory Results Past 24 Hours: 02/14/17 06:15 02/14/17 06:15 Test 02/13/17 15:36 02/14/17 06:15 02/14/17 11:11 Arterial Blood pH 7.40 (7.35-7.45) Arterial Blood Partial Pressure CO2 52 mmHg (35-46) Arterial Blood Partial Pressure O2 57 mm/Hg (80-95) Arterial Blood HCO3 32 mmol/L (19-24) Arterial Blood Oxygen Saturation 86.5 % (90-95) Arterial Blood Base Excess 5.7 mEq/L (-9-1.8) Arterial Blood Gas Delivery 2 L Khoa Test POS (POS) Red Blood Count 4.68 M/uL (4.7-6.1) Mean Corpuscular Volume 75.9 fL (80-100) Mean Corpuscular Hemoglobin 21.8 pg (25-34) Mean Corpuscular Hemoglobin Concent 28.7 g/dl (32-36) RDW Standard Deviation 50.6 fL (36.4-46.3) RDW Coefficient of Variation 18.2 % (11.5-14.5) Mean Platelet Volume 10.3 fL (7.4-10.4) Anion Gap 5.0 mmol/L (3-11) Est Creatinine Clear Calc Drug Dose 71.0 ml/min Estimated GFR () 68.1 Estimated GFR (Non- 58.8 BUN/Creatinine Ratio 17.4 (10-20) Calcium Level 8.8 mg/dl (8.5-10.1) Bedside Glucose 96 mg/dl (70-99) Imaging CT head- There is no hemorrhage, mass effect, or evidence of acute territorial ischemia by CT criteria. EEG with slowing no epileptic spikes Impression 76 year old male chronic medical issues with MS change -now back to baseline Plan 1. restart gabapentin 300 mg QID for now 2. MRI with and without contrast for any lesions or structural issues 3. PT/OT 4. ultram can cause confusion would not give for pain mgt 5. monitor for any infectious process or metabolic issues that can be corrected 6. fall risk 7. may need rehab prior to return to home 8. EEG official read pending- no seizure focus further recommendations to follow I have seen and discussed above patient with Dr Sixto Gipson, neurology I have seen this man and reviewed the above history and exam today he is still confused but is apparently better with some almost chorieform movements, disorientation of mild degree with retained islands of memory , visual loss due to macular degeneration and severe polyneuropathy with baseline wheelchair dependency most of the day suspect we will find no single cause for his decline other than a "perfect storm " of metabolic factors and agree with the plans to check an mri for any new deficits ( suspect there will be a significant degree of leukoencephalopathy ) check an ammonia level carotids and cut the neurontin down a bit to 300 qid Neurology will be back tomorrow to review results Sixto Gipson MD
--- NOTE | 2017-02-14 16:00 | ELECTROENCEPHALOGRAPH REPORT ---
For Jennifer Ventura. CLINICAL DIAGNOSIS: Episodic confusion and agitation, question seizures. ELECTROENCEPHALOGRAM DIAGNOSIS: Mildly diffusely abnormal EEG during wakefulness. DESCRIPTION OF TRACING: This EEG was done as a bedside recording and is of reasonable technical quality, allowing for a lot of muscle and movement activity. A simultaneous video analysis of patient movement and behavior is available and is quite valuable in assessing the movement artifacts that emerge. Photic stimulation was performed. Hyperventilation was not and drowsiness and light sleep are not clearly recorded. During apparent clinical wakefulness, there is evidence for a background rhythm in the upper theta to lower alpha range between 8 and 9 Hz of maximum frequency with much of the frequencies being in theta range through the recording. Polymorphic mid to slightly lower frequency theta activity intermixed with some modest amplitude isolated waveforms in the delta range is seen over all head regions without clear focal or regional predominance. Anterior head region maximum bilaterally symmetrical low voltage fast activity appears to be present and symmetrical. Photic stimulation was not performed nor was hyperventilation. At no time during the waking tracing is there evidence for a clearcut potentially epileptogenic activity in the form of polyspike or spike wave bursts, focal sharp waves or focal spikes. INTERPRETATION: This EEG is at most mildly diffusely abnormal with an absence of a sustained background alpha rhythm and slightly excessive amount of slow wave activity. The pattern is nonspecific and demonstrates no lateralizing or focal features and is not affiliated with any potentially epileptogenic activity. It correlates at most with a mild nonspecific encephalopathy.
[2017-02-14] MEDS: GABAPENTIN 300 MG CAP PO SCH ×2 (16:56→21:10)
--- NOTE | 2017-02-14 17:23 | Progress Note ---
Medicine Progress Note Date & Time of Visit: Feb 14, 2017 at 17:16. Subjective patient seen resting in bed, more awake, conversant but still somewhat drowsy, oriented x2 does not remember events from yesterday denies headache, dizziness, neck pain denies dyspnea, cough, chest pain, abdominal pain, leg pain no other symptoms Objective Last 8 Hrs Date Time Temp Pulse Resp B/P (MAP) Pulse Ox O2 Delivery O2 Flow Rate FiO2 02/14/17 16:13 36.7 63 18 137/77 (97) 90 Room Air 02/14/17 15:44 Nasal Cannula 2.0 02/14/17 11:57 Nasal Cannula 2.0 02/14/17 11:15 64 95 02/14/17 10:58 36.8 64 18 144/80 (101) 95 Room Air Physical Exam: General- oriented x 3, not in distress, speaks in sentences with no effort Eyes- EOMI, anicteric Neck- supple, no JVD Lungs- clear breath sounds bilaterally Heart- regular rhythm; no murmur, normal rate Abdomen- normal bowel sounds, soft, nontender Extremities- no pretibial edema, no calf tenderness; peripheral pulses intact Neuro- alert, oriented x 2; PERRL, EOMI; no facial palsy; no dysarthria; motor 5 /5 bilaterally; sensation 100% appears somewhat drowsy Skin- warm & dry Laboratory Results: Last 24 Hours Test 02/13/17 18:11 02/13/17 21:37 02/13/17 23:59 02/14/17 02:25 Bedside Glucose 212 mg/dl 233 mg/dl 169 mg/dl 61 mg/dl Test 02/14/17 02:43 02/14/17 04:01 02/14/17 06:15 02/14/17 11:11 Bedside Glucose 101 mg/dl 114 mg/dl 96 mg/dl White Blood Count 7.94 K/uL Red Blood Count 4.68 M/uL Hemoglobin 10.2 g/dL Hematocrit 35.5 % Mean Corpuscular Volume 75.9 fL Mean Corpuscular Hemoglobin 21.8 pg Mean Corpuscular Hemoglobin Concent 28.7 g/dl RDW Standard Deviation 50.6 fL RDW Coefficient of Variation 18.2 % Platelet Count 223 K/uL Mean Platelet Volume 10.3 fL Sodium Level 141 mmol/L Potassium Level 3.6 mmol/L Chloride Level 104 mmol/L Carbon Dioxide Level 32 mmol/L Anion Gap 5.0 mmol/L Blood Urea Nitrogen 21 mg/dl Creatinine 1.20 mg/dl Est Creatinine Clear Calc Drug Dose 71.0 ml/min Estimated GFR () 68.1 Estimated GFR (Non- 58.8 BUN/Creatinine Ratio 17.4 Random Glucose 103 mg/dl Calcium Level 8.8 mg/dl Test 02/14/17 15:57 Ammonia 12.3 umol/L Assessment & Plan 75 year old male with history of CHF Diastolic Type, DM, HTN, GILLES, other problems noted below presenting with altered mental status. ALTERED MENTAL STATUS/ENCEPHALOPATHY - unclear etiology - patient presenting with increasing weakness and altered mental status x 4 days ; recent admission for similar presentation - from GILLES and non adherence to CPAP? patient encouraged to use CPAP at HS - from medications? resumed Gabapentin, Effexor, Provigil monitor - underlying seizure disorder? EEG, neurology consulted - no signs of active infection at this time - ammonia normal - MRI ordered MILD RENEA - baseline creat runs in the low 1's - up to 1.5 today - likely prerenal - resolved - resume Lasix tomorrow BPH WITH CHRONIC HUNTER - completed antibiotics last week for UTI DM - hgb a1c 10.1 01/2017 - Lantus + SSI - pharmacy glycemic consult HTN - BP controlled, continue metoprolol CHRONIC DIASTOLIC CHF - appeared volume depleted on admission - IV fluids given - resume Lasix tomorrow GILLES - non compliant with CPAP, encouraged to use DVT PROPHYLAXIS - SQ Heparin CODE STATUS Full Code DISPO - PT/OT, case management consults - patient's requesting short term rehab stay post discharge Current Inpatient Medications: Current Inpatient Medications Medications (Trade) Dose Ordered Sig/Bj Route Start Time Stop Time Status Last Admin Dose Admin Heparin Sodium (Porcine) (Heparin Sq 5000 Unit/0.5ml) 5,000 unit Q8 SQ 02/13/17 22:00 03/15/17 21:59 02/14/17 13:32 5,000 UNIT Acetaminophen (Tylenol Tab) 650 mg Q4H PRN PO 02/13/17 16:15 03/15/17 16:14 Ondansetron HCl (Zofran Inj) 4 mg Q6H PRN IV 02/13/17 16:15 03/15/17 16:14 Insulin Aspart (novoLOG ASPART) SLIDING SCALE If C... ACHS SC 02/13/17 21:00 03/15/17 20:59 02/14/17 17:01 3 UNITS Glucose (Glucose 40% Gel) 15-30 GRAMS 15 GRAMS... UD PRN PO 02/13/17 17:00 03/15/17 16:59 Glucose (Glucose Chew Tab) 4-8 Tablets 4 Tabl... UD PRN PO 02/13/17 17:00 03/15/17 16:59 Dextrose (Dextrose 50% 50ML Syringe) 25-50ML OF 50% DW IV FOR... UD PRN IV 02/13/17 17:00 03/15/17 16:59 Glucagon (Glucagon Inj) 1 mg UD PRN SQ 02/13/17 17:00 03/15/17 16:59 Miscellaneous Information (Consult Glycemic Management Pharmacy) 1 ea UD PRN N/A 02/13/17 18:08 03/15/17 18:07 Aspirin (Ecotrin Tab) 81 mg DAILY PO 02/14/17 09:00 03/16/17 08:59 02/14/17 08:32 81 MG Finasteride (Proscar Tab) 5 mg QAM PO 02/14/17 09:00 03/16/17 08:59 02/14/17 08:32 5 MG Folic Acid (Folvite Tab) 1 mg DAILY PO 02/14/17 09:00 03/16/17 08:59 02/14/17 08:32 1 MG Magnesium Oxide (Mag-Ox Tab) 400 mg DAILY PO 02/14/17 09:00 03/16/17 08:59 02/14/17 08:33 400 MG Metoprolol Tartrate (Lopressor Tab) 12.5 mg BID PO 02/13/17 21:00 03/15/17 20:59 02/14/17 08:32 12.5 MG Multivitamins (Multivitamin Tab) 1 tab DAILY PO 02/14/17 09:00 03/16/17 08:59 02/14/17 08:33 1 TAB Nystatin (Mycostatin Powder) 1 appln TID EXT 02/13/17 21:00 03/15/17 20:59 02/14/17 13:32 1 APPLN Nystatin/ Triamcinolone Acetonide (Mycogen II Crm) 1 appln BID EXT 02/13/17 21:00 03/15/17 20:59 02/13/17 21:40 1 APPLN Simvastatin (Zocor Tab) 40 mg HS PO 02/13/17 21:00 03/15/17 20:59 02/13/17 21:41 40 MG Tamsulosin HCl (Flomax Cap) 0.4 mg HS PO 02/13/17 21:00 03/15/17 20:59 02/13/17 21:40 0.4 MG Lactobacillus Acidophilus (Floranex Tab) 4 tab DAILY PO 02/14/17 09:00 03/16/17 08:59 02/14/17 08:32 4 TAB Pantoprazole Sodium (Protonix Tab) 40 mg QAM PO 02/14/17 09:00 03/16/17 08:59 02/14/17 08:33 40 MG Cetirizine HCl (zyrTEC TAB) 10 mg DAILY PRN PO 02/13/17 18:30 03/15/17 18:29 Insulin Glargine (Lantus Solostar Pen) SEE PROTOCOL TEXT BID SC 02/13/17 21:00 03/15/17 20:59 02/14/17 08:32 10 UNITS Gabapentin (Neurontin Cap) 300 mg QID PO 02/14/17 17:00 03/16/17 16:59 02/14/17 16:56 300 MG
[2017-02-14] MEDS: SIMVASTATIN 40 MG TAB PO SCH (21:11)
[2017-02-14] MEDS: TAMSULOSIN HCL 0.4 MG CAP PO SCH (21:12)
[2017-02-15] MEDS: ACETAMINOPHEN 325 MG TAB PO PRN (02:23)
[2017-02-15] MEDS: HEPARIN SOD 5000 UNIT/0.5 ML CARP SQ SCH ×3 (04:57→21:05)
[2017-02-15 08:01] VITALS: BP 145/69; PULSE 63; TEMP 36.7; O2SAT 92
[2017-02-15] MEDS: NYSTATIN POWDER 15GM BTL EXT SCH ×3 (09:00→20:56)
[2017-02-15] MEDS: NYSTATIN/TRIAMCINOLONE CR 15 GM TUBE EXT SCH ×2 (09:00→20:56)
[2017-02-15] MEDS: FINASTERIDE 5 MG TAB PO SCH (10:17)
[2017-02-15] MEDS: GABAPENTIN 300 MG CAP PO SCH ×4 (10:17→21:00)
[2017-02-15] MEDS: MULTIVITAMIN TAB PO SCH (10:19)
[2017-02-15] MEDS: METOPROLOL TARTRATE 25 MG TAB PO SCH ×2 (10:19→21:00)
[2017-02-15] MEDS: PANTOprazole SOD 40 MG TAB PO SCH (10:19)
[2017-02-15] MEDS: LACTOBACILLUS ACIDOPHILUS (FLORANEX) TAB PO SCH (10:20)
[2017-02-15] MEDS: MAGNESIUM OXIDE 400 MG TAB PO SCH (10:20)
[2017-02-15] MEDS: INSULIN GLARGINE SOLOSTAR 100 UNITS/ML 3 ML PEN SC SCH ×2 (10:23→21:04)
[2017-02-15] MEDS: INSULIN ASPART 100 UNITS/ML 3 ML PEN SC SCH ×4 (10:24→21:04)
[2017-02-15] MEDS: ASPIRIN 81 MG ECTAB PO SCH (10:27)
[2017-02-15] MEDS: MODAFINIL 100 MG TAB PO SCH (10:31)
[2017-02-15 11:25] VITALS: BP 130/72; PULSE 74; TEMP 36.4; O2SAT 92
[2017-02-15] MEDS ORDERED: LORAZEPAM 2 MG/ML 1 ML VIAL ONE (12:10)
[2017-02-15] MEDS ORDERED: LORAZEPAM 2 MG/ML 1 ML VIAL IV SCH (12:15)
[2017-02-15] MEDS ORDERED: LORAZEPAM 2 MG/ML 1 ML VIAL IV PRN (12:15)
--- NOTE | 2017-02-15 12:37 | DIAGNOSTIC IMAGING REPORT ---
ORBITS FOR MRI HISTORY: 76 years-old Male required per pre-screen for MRI screening for MRI. Possible metal within the orbits. COMPARISON: Head CT 02/13/2017 TECHNIQUE: 2 views of the orbits. FINDINGS: No opaque foreign body identified. Bony orbits are intact. Mild right maxillary sinus disease. No acute facial or orbital fracture. IMPRESSION: No opaque foreign body identified. The above report was generated using voice recognition software. It may contain grammatical, syntax or spelling errors. Electronically signed by: Cj Hemphill M.D. 02/15/2017 12:36 PM Dictated Date/Time: 02/15/2017 12:35 PM
--- NOTE | 2017-02-15 14:27 | Neurology Progress Notes ---
Neurology Progress Note Date of Service Feb 15, 2017. Darron Fraser is a 76 year old male who presents to the ED with confusion. He had an admission on 02/03 - 02/09 and was treated for altered mental status, UTI, wound infection, and CHF. He had altered mental status and acute on chronic hypercapnic respiratory failure requiring intubation. He was successfully extubated and used PRN BiPap through the rest of his stay. He was also started on Provigil to help with day time sleepiness but he was not taking it at home because it was not covered by insurance. He was also treated for acute on chronic diastolic CHF with diuresis. UTI and wounds grew enterococcus and previous right great toe wound wound grew MRSA and was treated with Vanco and subsequently Augmentin and Doxy to finish the course.He was getting more confused and sleepy at home. At baseline he is wheelchair bound but does transfer at home but he fell with transferring to the bed. He states he takes Ultram at home but uncertain how often he takes it. He has macular degeneration which impairs his vision greatly. He has a bad right knee and severe DM peripheral neuropathy. Today he was given Ativan for the MRI but he could not tolerate it. He is back in his room and arouses easily but fall back to sleep with each questions. denies pain, CP, SOB, abdominal pain, N V. Objective Date Time Temp Pulse Resp B/P (MAP) Pulse Ox O2 Delivery O2 Flow Rate FiO2 02/15/17 11:25 36.4 74 20 130/72 (91) 92 Nasal Cannula 2.0 02/15/17 08:30 Nasal Cannula 02/15/17 08:01 36.7 63 20 145/69 (94) 92 Room Air 02/15/17 04:00 Nasal Cannula 02/15/17 00:01 Nasal Cannula 02/14/17 23:36 36.6 73 20 145/78 (100) 92 Room Air 02/14/17 20:00 94 Nasal Cannula 02/14/17 19:13 37.0 71 18 130/75 (93) 95 Nasal Cannula 2.0 02/14/17 16:13 36.7 63 18 137/77 (97) 90 Room Air 02/14/17 15:44 Nasal Cannula 2.0 Last 24 Hours Test 02/14/17 15:57 02/14/17 16:12 02/14/17 20:33 02/15/17 06:42 Ammonia 12.3 umol/L Bedside Glucose 152 mg/dl 178 mg/dl 132 mg/dl Test 02/15/17 10:58 Bedside Glucose 213 mg/dl Imaging: no new images EEG - This EEG is at most mildly diffusely abnormal with an absence of a sustained background alpha rhythm and slightly excessive amount of slow wave activity. The pattern is nonspecific and demonstrates no lateralizing or focal features and is not affiliated with any potentially epileptogenic activity. It correlates at most with a mild nonspecific encephalopathy. Exam: Gen: alert with deep stimulation lungs course breath sounds CV RRR follow commands but limited neuro: knows he is at [facility], 2017, president is Stephanie opens eyes sticks out touch with command Current Inpatient Medications Medications (Trade) Dose Ordered Sig/Bj Route Start Time Stop Time Status Last Admin Dose Admin Heparin Sodium (Porcine) (Heparin Sq 5000 Unit/0.5ml) 5,000 unit Q8 SQ 02/13/17 22:00 03/15/17 21:59 02/15/17 13:52 5,000 UNIT Acetaminophen (Tylenol Tab) 650 mg Q4H PRN PO 02/13/17 16:15 03/15/17 16:14 02/15/17 02:23 650 MG Ondansetron HCl (Zofran Inj) 4 mg Q6H PRN IV 02/13/17 16:15 03/15/17 16:14 Insulin Aspart (novoLOG ASPART) SLIDING SCALE If C... ACHS SC 02/13/17 21:00 03/15/17 20:59 02/15/17 13:48 6 UNITS Glucose (Glucose 40% Gel) 15-30 GRAMS 15 GRAMS... UD PRN PO 02/13/17 17:00 03/15/17 16:59 Glucose (Glucose Chew Tab) 4-8 Tablets 4 Tabl... UD PRN PO 02/13/17 17:00 03/15/17 16:59 Dextrose (Dextrose 50% 50ML Syringe) 25-50ML OF 50% DW IV FOR... UD PRN IV 02/13/17 17:00 03/15/17 16:59 Glucagon (Glucagon Inj) 1 mg UD PRN SQ 02/13/17 17:00 03/15/17 16:59 Miscellaneous Information (Consult Glycemic Management Pharmacy) 1 ea UD PRN N/A 02/13/17 18:08 03/15/17 18:07 Aspirin (Ecotrin Tab) 81 mg DAILY PO 02/14/17 09:00 03/16/17 08:59 02/15/17 10:27 81 MG Finasteride (Proscar Tab) 5 mg QAM PO 02/14/17 09:00 03/16/17 08:59 02/15/17 10:17 5 MG Folic Acid (Folvite Tab) 1 mg DAILY PO 02/14/17 09:00 03/16/17 08:59 02/15/17 10:18 1 MG Magnesium Oxide (Mag-Ox Tab) 400 mg DAILY PO 02/14/17 09:00 03/16/17 08:59 02/15/17 10:20 400 MG Metoprolol Tartrate (Lopressor Tab) 12.5 mg BID PO 02/13/17 21:00 03/15/17 20:59 02/15/17 10:19 12.5 MG Multivitamins (Multivitamin Tab) 1 tab DAILY PO 02/14/17 09:00 03/16/17 08:59 02/15/17 10:19 1 TAB Nystatin (Mycostatin Powder) 1 appln TID EXT 02/13/17 21:00 03/15/17 20:59 02/15/17 13:49 1 APPLN Nystatin/ Triamcinolone Acetonide (Mycogen II Crm) 1 appln BID EXT 02/13/17 21:00 03/15/17 20:59 02/15/17 09:00 1 APPLN Simvastatin (Zocor Tab) 40 mg HS PO 02/13/17 21:00 03/15/17 20:59 02/14/17 21:11 40 MG Tamsulosin HCl (Flomax Cap) 0.4 mg HS PO 02/13/17 21:00 03/15/17 20:59 02/14/17 21:12 0.4 MG Lactobacillus Acidophilus (Floranex Tab) 4 tab DAILY PO 02/14/17 09:00 03/16/17 08:59 02/15/17 10:20 4 TAB Pantoprazole Sodium (Protonix Tab) 40 mg QAM PO 02/14/17 09:00 03/16/17 08:59 02/15/17 10:19 40 MG Cetirizine HCl (zyrTEC TAB) 10 mg DAILY PRN PO 02/13/17 18:30 03/15/17 18:29 02/15/17 10:18 10 MG Insulin Glargine (Lantus Solostar Pen) SEE PROTOCOL TEXT BID SC 02/13/17 21:00 03/15/17 20:59 02/15/17 10:23 8 UNITS Gabapentin (Neurontin Cap) 300 mg QID PO 02/14/17 17:00 03/16/17 16:59 02/15/17 13:49 300 MG Modafinil (proVIGIL TAB) 100 mg QAM PO 02/15/17 09:00 03/17/17 08:59 02/15/17 10:31 100 MG Lorazepam (Ativan Inj) 0.25 mg ONE PRN IV 02/15/17 12:15 02/15/17 20:00 Impression 76 year old male chronic medical issues with MS change -now back to baseline Plan 1. restart gabapentin 300 mg QID for now 2. MRI with and without contrast for any lesions or structural issues unable to tolerate 3. PT/OT 4. ultram can cause confusion would not give for pain mgt 5. monitor for any infectious process or metabolic issues that can be corrected 6. fall risk 7. will need need rehab prior to return to home 8. EEG official read pending- no seizure focus 9. ammonia level normal range 12 10. carotid doppler ordered further recommendations to follow I have seen and discussed above patient with Dr Seda Lynn, neurology Pt hx reviewed. Pt presented nonfocally with encephalopathy. Unable to tolerate MRI, Carotid us pending at time of exam. Exam, sleepy, arousable, oriented to hospital month, no fixed gaze pref face symmetric, follows commands all fours symmetrically, no pathologic reflexes. Imp encephalopathy, unclear etiology. agree with lower dose of gabapentin, consider MRI with anesthesia/conscious sedation. EEG no sz. DEIDRA Lynn MD
[2017-02-15 16:18] VITALS: BP 135/69; PULSE 60; TEMP 36.6; O2SAT 96
--- NOTE | 2017-02-15 16:22 | DIAGNOSTIC IMAGING REPORT ---
CAROTID DOPPLER NECK ART CLINICAL HISTORY: 76 years-old Male presenting with mental status change. TECHNIQUE: Real-time grayscale and color and spectral Doppler ultrasound imaging of the bilateral carotid arteries was performed. NASCET criteria was used in evaluating this study. COMPARISON: None. FINDINGS: Examination was limited due to patient movement and confusion. Right: Common carotid: Atherosclerosis. Peak systolic velocity 85 cm/s. Internal carotid artery: Atherosclerosis of the proximal ICA. Peak systolic velocity 74 cm/s. External carotid artery: Patent. Peak systolic velocity 108 cm/s. Systolic ratio: 0.87. Left: Common carotid: Atherosclerosis. Peak systolic velocity 130 cm/s. Internal carotid artery: Atherosclerosis of the proximal ICA. Peak systolic velocity could not be obtained secondary to patient confusion. External carotid artery: Patent. Peak systolic velocity could not be obtained secondary to patient confusion. Systolic ratio: 0. Antegrade flow within the right vertebral artery. Secondary to patient confusion, the left vertebral artery could not be interrogated. Reference ranges: Stenosis measurements are compared to reference velocity parameters. Normal ICA peak systolic velocity less than 125 cm/s. Normal ICA peak systolic velocity to common carotid artery velocity ratio is less than 2: less than 2 equates to less than 50% stenosis, 2-4 equates to 50-69% stenosis, greater than 4 equates to greater than or equal to 70% stenosis. Normal ICA end-diastolic velocity less than 40. Blood pressure Brachial: Right: Cannot be obtained secondary to patient confusion, Left: 130/18 mmHg. IMPRESSION: Allowing for the limited exam, no hemodynamically significant stenosis seen within the right internal carotid artery. Electronically signed by: Anant Lugo M.D. 02/15/2017 4:21 PM Dictated Date/Time: 02/15/2017 4:18 PM
[2017-02-15] MEDS ORDERED: FLUMAZENIL 0.1 MG/1 ML 10 ML VIAL IV ONE (17:58)
[2017-02-15 18:36] LABS: ARTERIAL BLD GAS O2 SATURATION 96.2 % (90-95); ARTERIAL BLOOD GAS BASE EXCESS 6.2 mEq/L (-9-1.8); ARTERIAL BLOOD GAS HCO3 32 mmol/L (19-24); ARTERIAL BLOOD GAS PO2 93 mm/Hg (80-95)
[2017-02-15 18:37] LABS: ALLEN TEST POS (POS); O2 ADMINISTRATION 2 L
[2017-02-15 18:39] LABS: BASO % 0.5 %; BASO ABS # 0.03 K/uL (0-0.2); HEMATOCRIT 34.2 % (42-52); LYMPH % 29.3 %; LYMPH ABS # 1.67 K/uL (1.2-3.4); MEAN CELL VOLUME 74.5 fL (80-100); MEAN PLATELET VOLUME 10.2 fL (7.4-10.4); MONO % 9.1 %; NEUT % 55.1 %; PLATELET COUNT 215 K/uL (130-400); RED BLOOD COUNT 4.59 M/uL (4.7-6.1); WHITE BLOOD COUNT 5.69 K/uL (4.8-10.8)
[2017-02-15 19:10] LABS: COMPLETE YES; MEAN CORPUSCULAR HGB CONC 29.5 g/dl (32-36)
[2017-02-15 19:13] LABS: BUN/CREATININE RATIO 13.3 (10-20); CALCIUM 8.6 mg/dl (8.5-10.1); POTASSIUM 3.5 mmol/L (3.5-5.1)
[2017-02-15 20:00] VITALS: O2SAT 99
[2017-02-15 20:19] VITALS: BP 132/63; PULSE 70; TEMP 36.9; O2SAT 99
[2017-02-15] MEDS: TAMSULOSIN HCL 0.4 MG CAP PO SCH (20:59)
[2017-02-15] MEDS: SIMVASTATIN 40 MG TAB PO SCH (21:01)
--- NOTE | 2017-02-15 21:22 | Progress Note ---
Medicine Progress Note Date & Time of Visit: Feb 15, 2017 at 21:07. Subjective patient seen with at bedside drowsy, wakes up with verbal stimuli but confused, then drifts back to sleep not in distress given Flumazenil, D50 for BSG 89 re-evaluated , more easily rousable, oriented x 2, not in distress denies headache, dizziness, chest pain or any other symptoms Objective Last 8 Hrs Date Time Temp Pulse Resp B/P (MAP) Pulse Ox O2 Delivery O2 Flow Rate FiO2 02/15/17 20:19 36.9 70 20 132/63 (86) 99 Nasal Cannula 2.0 02/15/17 16:18 36.6 60 20 135/69 (91) 96 Room Air 02/15/17 16:00 Nasal Cannula Physical Exam: General- oriented x 3, not in distress, speaks in sentences with no effort Eyes- anicteric Neck- no JVD Lungs- clear breath sounds bilaterally, no rales/wheezes Heart- regular rhythm; no murmur, normal rate Abdomen- normal bowel sounds, soft, nontender Extremities- no pretibial edema, no calf tenderness; peripheral pulses intact Neuro- alert, oriented x 2; PERRL, EOMI; no facial palsy; moves all extremities equally Skin- warm & dry Laboratory Results: Last 24 Hours Test 02/15/17 06:42 02/15/17 10:58 02/15/17 16:21 02/15/17 18:23 Bedside Glucose 132 mg/dl 213 mg/dl 89 mg/dl White Blood Count 5.69 K/uL Red Blood Count 4.59 M/uL Hemoglobin 10.1 g/dL Hematocrit 34.2 % Mean Corpuscular Volume 74.5 fL Mean Corpuscular Hemoglobin 22.0 pg Mean Corpuscular Hemoglobin Concent 29.5 g/dl Platelet Count 215 K/uL Mean Platelet Volume 10.2 fL Neutrophils (%) (Auto) 55.1 % Lymphocytes (%) (Auto) 29.3 % Monocytes (%) (Auto) 9.1 % Eosinophils (%) (Auto) 6.0 % Basophils (%) (Auto) 0.5 % Neutrophils # (Auto) 3.13 K/uL Lymphocytes # (Auto) 1.67 K/uL Monocytes # (Auto) 0.52 K/uL Eosinophils # (Auto) 0.34 K/uL Basophils # (Auto) 0.03 K/uL RDW Standard Deviation 47.7 fL RDW Coefficient of Variation 17.5 % Immature Granulocyte % (Auto) 0.0 % Immature Granulocyte # (Auto) 0.00 K/uL Red Blood Cell Morphology Unremarkable Arterial Blood pH 7.40 Arterial Blood Partial Pressure CO2 53 mmHg Arterial Blood Partial Pressure O2 93 mm/Hg Arterial Blood HCO3 32 mmol/L Arterial Blood Oxygen Saturation 96.2 % Arterial Blood Base Excess 6.2 mEq/L Arterial Blood Gas Delivery 2 L Khoa Test POS Sodium Level 139 mmol/L Potassium Level 3.5 mmol/L Chloride Level 102 mmol/L Carbon Dioxide Level 33 mmol/L Anion Gap 4.0 mmol/L Blood Urea Nitrogen 13 mg/dl Creatinine 1.00 mg/dl Est Creatinine Clear Calc Drug Dose 85.2 ml/min Estimated GFR () 85.0 Estimated GFR (Non- 73.3 BUN/Creatinine Ratio 13.3 Random Glucose 195 mg/dl Calcium Level 8.6 mg/dl Test 02/15/17 19:08 02/15/17 20:50 Bedside Glucose 153 mg/dl Assessment & Plan 75 year old male with history of CHF Diastolic Type, DM, HTN, GILLES, other problems noted below presenting with altered mental status. ALTERED MENTAL STATUS/ENCEPHALOPATHY - unclear etiology at this point, possibly multifactorial - patient presenting with increasing weakness and altered mental status x 4 days ; recent admission for similar presentation - from GILLES and non adherence to CPAP? patient encouraged to use CPAP at HS or at least wear O2 via NC ABG today no acidosis, O2 improved - from medications? resumed Gabapentin, Effexor, Provigil monitor - underlying seizure disorder? EEG: non specific -- neurology consulted MRI brain pending -- became more lethargic after receiving Ativan given Flumazenil with improvement of mental status will monitor - no signs of active infection at this time - ammonia normal - MRI ordered- pending MILD RENEA - baseline creat runs in the low 1's - up to 1.5 on admission - likely prerenal - resolved - given IV fluids patient appears euvolemic, poor oral intake hold off Lasix for now BPH WITH CHRONIC HUNTER - completed antibiotics last week for UTI DM - hgb a1c 10.1 01/2017 - Lantus + SSI - pharmacy glycemic consult HTN - BP controlled, continue metoprolol CHRONIC DIASTOLIC CHF - appeared volume depleted on admission - IV fluids given patient appears euvolemic, poor oral intake hold off Lasix for now GILLES - non compliant with CPAP, encouraged to use at least 02 via nasal cannula DVT PROPHYLAXIS - SQ Heparin CODE STATUS Full Code DISPO - PT/OT, case management consults - patient's requesting short term rehab stay post discharge Current Inpatient Medications: Current Inpatient Medications Medications (Trade) Dose Ordered Sig/Jb Route Start Time Stop Time Status Last Admin Dose Admin Heparin Sodium (Porcine) (Heparin Sq 5000 Unit/0.5ml) 5,000 unit Q8 SQ 02/13/17 22:00 03/15/17 21:59 02/15/17 21:05 5,000 UNIT Acetaminophen (Tylenol Tab) 650 mg Q4H PRN PO 02/13/17 16:15 03/15/17 16:14 02/15/17 02:23 650 MG Ondansetron HCl (Zofran Inj) 4 mg Q6H PRN IV 02/13/17 16:15 03/15/17 16:14 Insulin Aspart (novoLOG ASPART) SLIDING SCALE If C... ACHS SC 02/13/17 21:00 03/15/17 20:59 02/15/17 21:04 1 UNITS Glucose (Glucose 40% Gel) 15-30 GRAMS 15 GRAMS... UD PRN PO 02/13/17 17:00 03/15/17 16:59 Glucose (Glucose Chew Tab) 4-8 Tablets 4 Tabl... UD PRN PO 02/13/17 17:00 03/15/17 16:59 Dextrose (Dextrose 50% 50ML Syringe) 25-50ML OF 50% DW IV FOR... UD PRN IV 02/13/17 17:00 03/15/17 16:59 02/15/17 18:31 50 ML Glucagon (Glucagon Inj) 1 mg UD PRN SQ 02/13/17 17:00 03/15/17 16:59 Miscellaneous Information (Consult Glycemic Management Pharmacy) 1 ea UD PRN N/A 02/13/17 18:08 03/15/17 18:07 Aspirin (Ecotrin Tab) 81 mg DAILY PO 02/14/17 09:00 03/16/17 08:59 02/15/17 10:27 81 MG Finasteride (Proscar Tab) 5 mg QAM PO 02/14/17 09:00 03/16/17 08:59 02/15/17 10:17 5 MG Folic Acid (Folvite Tab) 1 mg DAILY PO 02/14/17 09:00 03/16/17 08:59 02/15/17 10:18 1 MG Magnesium Oxide (Mag-Ox Tab) 400 mg DAILY PO 02/14/17 09:00 03/16/17 08:59 02/15/17 10:20 400 MG Metoprolol Tartrate (Lopressor Tab) 12.5 mg BID PO 02/13/17 21:00 03/15/17 20:59 02/15/17 21:00 12.5 MG Multivitamins (Multivitamin Tab) 1 tab DAILY PO 02/14/17 09:00 03/16/17 08:59 02/15/17 10:19 1 TAB Nystatin (Mycostatin Powder) 1 appln TID EXT 02/13/17 21:00 03/15/17 20:59 02/15/17 20:56 1 APPLN Nystatin/ Triamcinolone Acetonide (Mycogen II Crm) 1 appln BID EXT 02/13/17 21:00 03/15/17 20:59 02/15/17 20:56 1 APPLN Simvastatin (Zocor Tab) 40 mg HS PO 02/13/17 21:00 03/15/17 20:59 02/15/17 21:01 40 MG Tamsulosin HCl (Flomax Cap) 0.4 mg HS PO 02/13/17 21:00 03/15/17 20:59 02/15/17 20:59 0.4 MG Lactobacillus Acidophilus (Floranex Tab) 4 tab DAILY PO 02/14/17 09:00 03/16/17 08:59 02/15/17 10:20 4 TAB Pantoprazole Sodium (Protonix Tab) 40 mg QAM PO 02/14/17 09:00 03/16/17 08:59 02/15/17 10:19 40 MG Cetirizine HCl (zyrTEC TAB) 10 mg DAILY PRN PO 02/13/17 18:30 03/15/17 18:29 02/15/17 10:18 10 MG Insulin Glargine (Lantus Solostar Pen) SEE PROTOCOL TEXT BID SC 02/13/17 21:00 11/3/17 20:59 02/15/17 21:04 8 UNITS Gabapentin (Neurontin Cap) 300 mg QID PO 02/14/17 17:00 03/16/17 16:59 02/15/17 21:00 300 MG Modafinil (proVIGIL TAB) 100 mg QAM PO 02/15/17 09:00 03/17/17 08:59 02/15/17 10:31 100 MG
[2017-02-16] VITALS (10 sets, daily range): BP systolic 106–153; BP diastolic 66–84; PULSE 56–96; TEMP 36.5–36.7; O2SAT 90–96
[2017-02-16] MEDS: HEPARIN SOD 5000 UNIT/0.5 ML CARP SQ SCH ×3 (06:14→20:39)
[2017-02-16 06:52] LABS: HEMATOCRIT 38.6 % (42-52); MEAN CELL VOLUME 75.1 fL (80-100); MEAN CORPUSCULAR HEMOGLOBIN 22.2 pg (25-34); MEAN CORPUSCULAR HGB CONC 29.5 g/dl (32-36); MEAN PLATELET VOLUME 10.6 fL (7.4-10.4); PLATELET COUNT 228 K/uL (130-400); RED BLOOD COUNT 5.14 M/uL (4.7-6.1); WHITE BLOOD COUNT 7.87 K/uL (4.8-10.8)
[2017-02-16] MEDS: FINASTERIDE 5 MG TAB PO SCH (07:48)
[2017-02-16] MEDS: PANTOprazole SOD 40 MG TAB PO SCH (07:48)
[2017-02-16] MEDS: METOPROLOL TARTRATE 25 MG TAB PO SCH ×2 (07:48→20:33)
[2017-02-16] MEDS: MULTIVITAMIN TAB PO SCH (07:48)
[2017-02-16] MEDS: GABAPENTIN 300 MG CAP PO SCH ×2 (07:49→20:33)
[2017-02-16] MEDS: MAGNESIUM OXIDE 400 MG TAB PO SCH (07:49)
[2017-02-16] MEDS: LACTOBACILLUS ACIDOPHILUS (FLORANEX) TAB PO SCH (07:50)
[2017-02-16] MEDS: NYSTATIN/TRIAMCINOLONE CR 15 GM TUBE EXT SCH ×2 (07:50→20:33)
[2017-02-16] MEDS: NYSTATIN POWDER 15GM BTL EXT SCH ×3 (07:51→20:33)
[2017-02-16] MEDS: ASPIRIN 81 MG ECTAB PO SCH (07:51)
[2017-02-16] MEDS: INSULIN ASPART 100 UNITS/ML 3 ML PEN SC SCH ×4 (07:53→20:37)
[2017-02-16] MEDS: INSULIN GLARGINE SOLOSTAR 100 UNITS/ML 3 ML PEN SC SCH ×2 (07:54→20:38)
[2017-02-16] MEDS: MODAFINIL 100 MG TAB PO SCH (08:34)
[2017-02-16] MEDS ORDERED: OPTIRAY 320 IV PRN (12:15)
--- NOTE | 2017-02-16 13:08 | NEUROLOGY CONSULTATION ---
DATE OF CONSULTATION: 02/16/2017 DATE OF CONSULTATION: 02/16/2017 HISTORY OF PRESENT ILLNESS: I am seeing Mr. Bowen in followup of encephalopathy. He has apparently had prior hospitalizations for the same and several CTs of the head in the last month or so. Last evening Dr. Beltran gave the patient flumazenil and he alerted after that time. Today, I find him to be sleepy, mumbling, not following significant commands, although moving all 4's symmetrically in the bed. He does not appear agitated. I do not hear a carotid bruit, although his breath sounds are rhonchorous. He has no fixed gaze preference. His pupils are equal. There is no facial asymmetry and he moves all 4 symmetrically. Toes are bilaterally downgoing. There is no neck stiffness. IMPRESSION: This patient appears to have a global encephalopathy, etiology of which is unknown. Gabapentin has been reduced in dose and I will further decrease it today. I would avoid sedative hypnotics. Having reviewed his blood work and ammonia level was normal. Liver function was normal. Thyroid function was normal. I have ordered a B12, folate, thiamine, RPR. I would consider giving him additional thiamine although suspect his multiple vitamins contain that. At present without anesthesia we cannot get an MRI. I would do a CT of the head with and without contrast and I have ordered that. PT carotid US was nondiagnostic bc pt was not cooperative and will need to be repeated. Will follow with you. DEIDRA Lynn MD [facility] [place] DIVISIONRed
--- NOTE | 2017-02-16 13:37 | DIAGNOSTIC IMAGING REPORT ---
HEAD COMBO HISTORY: 76 years-old Male persistent change in ms, intolerant mri acute altered mental status. The patient is unable to tolerate MRI. COMPARISON: CT head 02/13/2017 and 02/07/2017 TECHNIQUE: Multiple axial CT images of the head were obtained both with and without the use of 94 mL Optiray 320. FINDINGS: The study is limited secondary to prominent motion artifact. Noncontrast study of the exam was repeated with persistent motion artifact limiting the study. There is mild cerebral and cerebellar atrophy. Increased attenuation of the right frontal lobe region likely secondary to artifact. Ill-defined areas of low attenuation within the periventricular white matter of the cerebral hemispheres bilaterally suggests chronic microvascular ischemic changes. No acute intracranial hemorrhage, midline shift, abnormal extra-axial collections, hydrocephalus or intracranial mass identified. No territorial ischemia. The venous sinuses appear patent. The right vertebral artery appears diminutive in size. Proximal branch vessels of the cerebral vasculature at the level skull base appear unremarkable. No abnormal intra-axial or extra-axial enhancement identified. No calvarial fracture. Mastoid air cells and middle ear cavities are clear. Mild mucosal thickening of the maxillary sinuses. Soft tissues are unremarkable. Orbits are symmetric. IMPRESSION: 1. Limited study secondary to motion artifact. Within the limitations of the exam, no acute intracranial abnormality identified. No abnormal enhancement. 2. Mild atrophy with chronic microvascular ischemic changes. 3. Mild paranasal sinus disease. The above report was generated using voice recognition software. It may contain grammatical, syntax or spelling errors. Electronically signed by: Cj Hemphill M.D. 02/16/2017 1:36 PM Dictated Date/Time: 02/16/2017 1:30 PM
--- NOTE | 2017-02-16 20:26 | Progress Note ---
Medicine Progress Note Date & Time of Visit: Feb 16, 2017 at 20:16. Subjective seen sleeping, rousable with verbal stimuli but goes back to sleep tolerated bipap while sleeping today had breakfast and lunch, but mostly drowsy with periods of confusion not in distress, not oriented denies pain, dyspnea no other symptoms Objective Last 8 Hrs Date Time Temp Pulse Resp B/P (MAP) Pulse Ox O2 Delivery O2 Flow Rate FiO2 02/16/17 19:05 36.6 70 20 145/79 (101) 95 Nasal Cannula 3.0 02/16/17 17:00 36.6 96 Room Air 02/16/17 16:00 36.5 56 21 106/68 (81) 91 BiPAP 02/16/17 15:10 BiPAP Physical Exam: General- drowsy, not oriented Eyes- anicteric Neck- no JVD Lungs- clear breath sounds bilaterally, no rales/wheezes bilaterally Heart- regular rhythm; no murmur, normal rate Abdomen- normal bowel sounds, soft, nontender Extremities- no pretibial edema, no calf tenderness Neuro- drowsy; no facial palsy; moves all extremities equally Skin- warm & dry Laboratory Results: Last 24 Hours Test 02/15/17 20:50 02/16/17 06:05 02/16/17 06:34 02/16/17 10:55 Bedside Glucose 175 mg/dl 129 mg/dl 174 mg/dl White Blood Count 7.87 K/uL Red Blood Count 5.14 M/uL Hemoglobin 11.4 g/dL Hematocrit 38.6 % Mean Corpuscular Volume 75.1 fL Mean Corpuscular Hemoglobin 22.2 pg Mean Corpuscular Hemoglobin Concent 29.5 g/dl RDW Standard Deviation 47.9 fL RDW Coefficient of Variation 17.5 % Platelet Count 228 K/uL Mean Platelet Volume 10.6 fL Test 02/16/17 12:54 02/16/17 16:10 Vitamin B12 Level 864 pg/mL Folate > 24.00 ng/mL Bedside Glucose 169 mg/dl Assessment & Plan 75 year old male with history of CHF Diastolic Type, DM, HTN, GILLES, other problems noted below presenting with altered mental status. ALTERED MENTAL STATUS/ENCEPHALOPATHY - unclear etiology at this point, possibly multifactorial - patient presenting with increasing weakness and altered mental status x 4 days ; recent admission for similar presentation - from GILLES and non adherence to CPAP? patient encouraged to use CPAP at HS or at least wear O2 via NC used CPAP while sleeping today still drowsy, will check ABG - from medications? resumed Gabapentin- decreasing dose resumed Provigil held Effexor - underlying seizure disorder? EEG: non specific -- neurology consulted MRI brain pending- patient cannot tolerate CT head: limited, no acute findings -- 02/15/17 became more lethargic after receiving Ativan given Flumazenil with improvement of mental status - no signs of active infection at this time cultures negative - ammonia normal MILD RENEA - baseline creat runs in the low 1's - up to 1.5 on admission - likely prerenal - resolved - given IV fluids patient appears euvolemic, poor oral intake hold off Lasix for now BPH WITH CHRONIC HUNTER - completed antibiotics last week for UTI DM - hgb a1c 10.1 01/2017 - Lantus + SSI - pharmacy glycemic consult HTN - BP controlled, continue metoprolol CHRONIC DIASTOLIC CHF - appeared volume depleted on admission - IV fluids given patient appears euvolemic, poor oral intake hold off Lasix for now GILLES - non compliant with CPAP, encouraged to use at least 02 via nasal cannula DVT PROPHYLAXIS - SQ Heparin CODE STATUS Full Code DISPO - PT/OT, case management consults - patient's requesting short term rehab stay post discharge Current Inpatient Medications: Current Inpatient Medications Medications (Trade) Dose Ordered Sig/Bj Route Start Time Stop Time Status Last Admin Dose Admin Heparin Sodium (Porcine) (Heparin Sq 5000 Unit/0.5ml) 5,000 unit Q8 SQ 02/13/17 22:00 03/15/17 21:59 02/16/17 13:19 5,000 UNIT Acetaminophen (Tylenol Tab) 650 mg Q4H PRN PO 02/13/17 16:15 03/15/17 16:14 02/15/17 02:23 650 MG Ondansetron HCl (Zofran Inj) 4 mg Q6H PRN IV 02/13/17 16:15 03/15/17 16:14 Insulin Aspart (novoLOG ASPART) SLIDING SCALE If C... ACHS SC 02/13/17 21:00 03/15/17 20:59 02/16/17 12:03 4 UNITS Glucose (Glucose 40% Gel) 15-30 GRAMS 15 GRAMS... UD PRN PO 02/13/17 17:00 03/15/17 16:59 Glucose (Glucose Chew Tab) 4-8 Tablets 4 Tabl... UD PRN PO 02/13/17 17:00 03/15/17 16:59 Dextrose (Dextrose 50% 50ML Syringe) 25-50ML OF 50% DW IV FOR... UD PRN IV 02/13/17 17:00 03/15/17 16:59 02/15/17 18:31 50 ML Glucagon (Glucagon Inj) 1 mg UD PRN SQ 02/13/17 17:00 03/15/17 16:59 Miscellaneous Information (Consult Glycemic Management Pharmacy) 1 ea UD PRN N/A 02/13/17 18:08 03/15/17 18:07 Aspirin (Ecotrin Tab) 81 mg DAILY PO 02/14/17 09:00 03/16/17 08:59 02/16/17 07:51 81 MG Finasteride (Proscar Tab) 5 mg QAM PO 02/14/17 09:00 03/16/17 08:59 02/16/17 07:48 5 MG Folic Acid (Folvite Tab) 1 mg DAILY PO 02/14/17 09:00 03/16/17 08:59 02/16/17 07:48 1 MG Magnesium Oxide (Mag-Ox Tab) 400 mg DAILY PO 02/14/17 09:00 03/16/17 08:59 02/16/17 07:49 400 MG Metoprolol Tartrate (Lopressor Tab) 12.5 mg BID PO 02/13/17 21:00 03/15/17 20:59 02/16/17 07:48 12.5 MG Multivitamins (Multivitamin Tab) 1 tab DAILY PO 02/14/17 09:00 03/16/17 08:59 02/16/17 07:48 1 TAB Nystatin (Mycostatin Powder) 1 appln TID EXT 02/13/17 21:00 03/15/17 20:59 02/16/17 13:14 1 APPLN Nystatin/ Triamcinolone Acetonide (Mycogen II Crm) 1 appln BID EXT 02/13/17 21:00 03/15/17 20:59 02/16/17 07:50 1 APPLN Simvastatin (Zocor Tab) 40 mg HS PO 02/13/17 21:00 03/15/17 20:59 02/15/17 21:01 40 MG Tamsulosin HCl (Flomax Cap) 0.4 mg HS PO 02/13/17 21:00 03/15/17 20:59 02/15/17 20:59 0.4 MG Lactobacillus Acidophilus (Floranex Tab) 4 tab DAILY PO 02/14/17 09:00 03/16/17 08:59 02/16/17 07:50 4 TAB Pantoprazole Sodium (Protonix Tab) 40 mg QAM PO 02/14/17 09:00 03/16/17 08:59 02/16/17 07:48 40 MG Cetirizine HCl (zyrTEC TAB) 10 mg DAILY PRN PO 02/13/17 18:30 03/15/17 18:29 02/15/17 10:18 10 MG Insulin Glargine (Lantus Solostar Pen) SEE PROTOCOL TEXT BID SC 02/13/17 21:00 03/15/17 20:59 02/16/17 07:54 8 UNITS Modafinil (proVIGIL TAB) 100 mg QAM PO 02/15/17 09:00 03/17/17 08:59 02/16/17 08:34 100 MG Gabapentin (Neurontin Cap) 300 mg BID PO 02/16/17 21:00 03/18/17 20:59 Ioversol (Optiray 320) 100 ml UD PRN IV 02/16/17 12:15 02/20/17 12:14
[2017-02-16] MEDS: SIMVASTATIN 40 MG TAB PO SCH (20:33)
[2017-02-16] MEDS: TAMSULOSIN HCL 0.4 MG CAP PO SCH (20:33)
[2017-02-16 20:41] LABS: ALLEN TEST POS (POS); ARTERIAL BLD GAS O2 SATURATION 90.2 % (90-95); ARTERIAL BLOOD GAS BASE EXCESS 5.7 mEq/L (-9-1.8); ARTERIAL BLOOD GAS HCO3 32 mmol/L (19-24); ARTERIAL BLOOD GAS PO2 63 mm/Hg (80-95); O2 ADMINISTRATION 2L O2
[2017-02-17 03:21] VITALS: BP 122/71; PULSE 74; TEMP 37.2; O2SAT 97
[2017-02-17] MEDS: HEPARIN SOD 5000 UNIT/0.5 ML CARP SQ SCH ×3 (04:44→22:51)
[2017-02-17 06:56] VITALS: BP 122/63
[2017-02-17] MEDS: NYSTATIN POWDER 15GM BTL EXT SCH ×3 (07:56→20:07)
[2017-02-17] MEDS: NYSTATIN/TRIAMCINOLONE CR 15 GM TUBE EXT SCH ×2 (07:56→20:07)
[2017-02-17] MEDS: PANTOprazole SOD 40 MG TAB PO SCH (07:57)
[2017-02-17] MEDS: MULTIVITAMIN TAB PO SCH (07:57)
[2017-02-17] MEDS: ASPIRIN 81 MG ECTAB PO SCH (07:57)
[2017-02-17] MEDS: GABAPENTIN 300 MG CAP PO SCH ×2 (07:57→20:06)
[2017-02-17] MEDS: LACTOBACILLUS ACIDOPHILUS (FLORANEX) TAB PO SCH (07:57)
[2017-02-17] MEDS: MAGNESIUM OXIDE 400 MG TAB PO SCH (07:58)
[2017-02-17] MEDS: FINASTERIDE 5 MG TAB PO SCH (07:58)
[2017-02-17] MEDS: METOPROLOL TARTRATE 25 MG TAB PO SCH ×2 (07:58→20:06)
[2017-02-17] MEDS: INSULIN GLARGINE SOLOSTAR 100 UNITS/ML 3 ML PEN SC SCH ×2 (08:01→20:13)
--- NOTE | 2017-02-17 08:31 | Progress Note ---
Medicine Progress Note Date & Time of Visit: Feb 17, 2017 at 08:30. Subjective per RN, patient used Bipap about 5 hours during daytime and at least 4 hours overnight this morning, patient seen sitting up in bedside chair, alert, oriented x 3, answers questions appropriately mental status is at baseline based on my previous encounters with him on previous admissions denies headache, dyspnea, chest pain, palpitations no abdominal pain, diarrhea no other symptoms Objective Last 8 Hrs Date Time Temp Pulse Resp B/P (MAP) Pulse Ox O2 Delivery O2 Flow Rate FiO2 02/17/17 06:56 16 122/63 (82) Room Air 02/17/17 04:00 Nasal Cannula 2.0 02/17/17 03:21 37.2 74 21 122/71 (88) 97 Nasal Cannula 3.0 Physical Exam: General-oriented x 3, not in distress, speaks in sentences with no effort Eyes- anicteric Neck- no JVD Lungs- mild rales right base, clear left, no wheezing Heart- regular rhythm; no murmur, normal rate Abdomen- normal bowel sounds, soft, nontender Extremities- trace pretibial edema, no calf tenderness Neuro- oriented x 3, no gross focal neuro deficits Skin- warm & dry Laboratory Results: Last 24 Hours Test 02/16/17 10:55 02/16/17 12:54 02/16/17 16:10 02/16/17 20:14 Bedside Glucose 174 mg/dl 169 mg/dl 208 mg/dl Vitamin B12 Level 864 pg/mL Folate > 24.00 ng/mL Rapid Plasma Reagin NONREACTIVE Test 02/16/17 20:30 02/17/17 06:25 Arterial Blood pH 7.40 Arterial Blood Partial Pressure CO2 52 mmHg Arterial Blood Partial Pressure O2 63 mm/Hg Arterial Blood HCO3 32 mmol/L Arterial Blood Oxygen Saturation 90.2 % Arterial Blood Base Excess 5.7 mEq/L Arterial Blood Gas Delivery 2L O2 Khoa Test POS Bedside Glucose 195 mg/dl Assessment & Plan 75 year old male with history of CHF Diastolic Type, DM, HTN, GILLES, other problems noted below presenting with altered mental status. ALTERED MENTAL STATUS - possibly multifactorial - patient presenting with increasing weakness and altered mental status x 4 days ; recent admission for similar presentation - from GILLES and non adherence to CPAP? daily ABGs showing pH 7.4, compensated respiratory acidosis used Bipap yesterday for a few hours for the first time and mental status is much better today states he has a smaller mask at home that he is tolerating better, will request to bring it (although reports to me that patient does not wear it at all at home) was started on Provigil during last admission, but was not taking it on discharge, restarted during this admission will consult Pulmonary for further recommendations - from medications? resumed Gabapentin- decreased dose further, mental status much improved today resumed Provigil during this admission held Effexor - underlying seizure disorder unlikely EEG: non specific --CVA ruled out MRI brain pending- patient cannot tolerate CT head: limited, no acute findings - Infection ruled out no signs of active infection at this time cultures negative - ammonia normal MILD RENEA - baseline creat runs in the low 1's - up to 1.5 on admission - likely prerenal - resolved - given IV fluids - resumed Lasix today BPH WITH CHRONIC HUNTER - completed antibiotics last week for UTI DM - hgb a1c 10.1 01/2017 - Lantus + SSI - pharmacy glycemic consult HTN - BP controlled, continue metoprolol CHRONIC DIASTOLIC CHF - appeared volume depleted on admission - IV fluids given initially - resume Lasix 40mg po daily today GILLES - management from #1 DVT PROPHYLAXIS - SQ Heparin CODE STATUS Full Code DISPO - PT/OT, case management consults - patient's requesting short term rehab stay post discharge Current Inpatient Medications: Current Inpatient Medications Medications (Trade) Dose Ordered Sig/Bj Route Start Time Stop Time Status Last Admin Dose Admin Heparin Sodium (Porcine) (Heparin Sq 5000 Unit/0.5ml) 5,000 unit Q8 SQ 02/13/17 22:00 03/15/17 21:59 02/17/17 04:44 5,000 UNIT Acetaminophen (Tylenol Tab) 650 mg Q4H PRN PO 02/13/17 16:15 03/15/17 16:14 02/15/17 02:23 650 MG Ondansetron HCl (Zofran Inj) 4 mg Q6H PRN IV 02/13/17 16:15 03/15/17 16:14 Insulin Aspart (novoLOG ASPART) SLIDING SCALE If C... ACHS SC 02/13/17 21:00 03/15/17 20:59 02/16/17 20:37 2 UNITS Glucose (Glucose 40% Gel) 15-30 GRAMS 15 GRAMS... UD PRN PO 02/13/17 17:00 03/15/17 16:59 Glucose (Glucose Chew Tab) 4-8 Tablets 4 Tabl... UD PRN PO 02/13/17 17:00 03/15/17 16:59 Dextrose (Dextrose 50% 50ML Syringe) 25-50ML OF 50% DW IV FOR... UD PRN IV 02/13/17 17:00 03/15/17 16:59 02/15/17 18:31 50 ML Glucagon (Glucagon Inj) 1 mg UD PRN SQ 02/13/17 17:00 03/15/17 16:59 Miscellaneous Information (Consult Glycemic Management Pharmacy) 1 ea UD PRN N/A 02/13/17 18:08 03/15/17 18:07 Aspirin (Ecotrin Tab) 81 mg DAILY PO 02/14/17 09:00 03/16/17 08:59 02/17/17 07:57 81 MG Finasteride (Proscar Tab) 5 mg QAM PO 02/14/17 09:00 03/16/17 08:59 02/17/17 07:58 5 MG Folic Acid (Folvite Tab) 1 mg DAILY PO 02/14/17 09:00 03/16/17 08:59 02/17/17 07:58 1 MG Magnesium Oxide (Mag-Ox Tab) 400 mg DAILY PO 02/14/17 09:00 03/16/17 08:59 02/17/17 07:58 400 MG Metoprolol Tartrate (Lopressor Tab) 12.5 mg BID PO 02/13/17 21:00 03/15/17 20:59 02/17/17 07:58 12.5 MG Multivitamins (Multivitamin Tab) 1 tab DAILY PO 02/14/17 09:00 03/16/17 08:59 02/17/17 07:57 1 TAB Nystatin (Mycostatin Powder) 1 appln TID EXT 02/13/17 21:00 03/15/17 20:59 02/17/17 07:56 1 APPLN Nystatin/ Triamcinolone Acetonide (Mycogen II Crm) 1 appln BID EXT 02/13/17 21:00 03/15/17 20:59 02/17/17 07:56 1 APPLN Simvastatin (Zocor Tab) 40 mg HS PO 02/13/17 21:00 03/15/17 20:59 02/16/17 20:33 40 MG Tamsulosin HCl (Flomax Cap) 0.4 mg HS PO 02/13/17 21:00 03/15/17 20:59 02/16/17 20:33 0.4 MG Lactobacillus Acidophilus (Floranex Tab) 4 tab DAILY PO 02/14/17 09:00 03/16/17 08:59 02/17/17 07:57 4 TAB Pantoprazole Sodium (Protonix Tab) 40 mg QAM PO 02/14/17 09:00 03/16/17 08:59 02/17/17 07:57 40 MG Insulin Glargine (Lantus Solostar Pen) SEE PROTOCOL TEXT BID SC 02/13/17 21:00 03/15/17 20:59 02/17/17 08:01 10 UNITS Modafinil (proVIGIL TAB) 100 mg QAM PO 02/15/17 09:00 03/17/17 08:59 02/16/17 08:34 100 MG Gabapentin (Neurontin Cap) 300 mg BID PO 02/16/17 21:00 03/18/17 20:59 02/17/17 07:57 300 MG Ioversol (Optiray 320) 100 ml UD PRN IV 02/16/17 12:15 02/20/17 12:14
[2017-02-17] MEDS: MODAFINIL 100 MG TAB PO SCH (08:34)
[2017-02-17] MEDS: INSULIN ASPART 100 UNITS/ML 3 ML PEN SC SCH ×4 (08:36→20:12)
[2017-02-17] MEDS: FUROSEMIDE 40 MG TAB PO SCH ×2 (09:33→16:02)
[2017-02-17 11:21] VITALS: BP 116/75; PULSE 79; TEMP 36.5; O2SAT 97
--- NOTE | 2017-02-17 11:55 | PROGRESS NOTE ---
DATE: 02/17/2017 SUBJECTIVE: I have seen Mr. Bowen in followup of encephalopathy. I spoke to his nurse, Abbey and over the night, he was able to tolerate CPAP. Daily ABGs show a compensated respiratory acidosis. PHYSICAL EXAMINATION: GENERAL: He is sleepy, but arousable and oriented x3. No right/left confusion or aphasia. 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 There are no field abnormalities and no facial asymmetry. If anything, there is some marginal right-sided weakness, but this was not definitive. No asymmetry of reflexes are noted. Rapid alternating movements are symmetric. IMPRESSIONS: 1. Encephalopathy, clearly multifactorial related to chronic hypoxemia. Gabapentin. I have reduced the dose further. 2. EEG did not show any seizure. 3. He was unable to tolerate an MRI, but I spoke to him and I feel he is awake enough and alert to likely tolerate one today. Nursing will call down in the afternoon if he has had a good day and he has been unable to wear supplemental oxygen and he will need a followup carotid ultrasound as the carotid ultrasound was nondiagnostic due to the patient's noncooperation. We will follow with you. ARACELI
--- NOTE | 2017-02-17 13:37 | PULMONARY CONSULTATION ---
DATE OF CONSULTATION: 02/17/2017 TIME: 12:10 p.m. HISTORY OF PRESENT ILLNESS: The patient was seen in room 234. Consultation is requested regarding sleep apnea. Mr. Bowen was hospitalized from February 03 until February 09 with an altered mental status. He actually was intubated initially. He got off the ventilator quickly. It was unclear why the acute onset of respiratory failure. He did have a urinary infection. He also had an infected wound on his thighs. Both the thigh and the urine grew enterococcus. He had some hypoglycemia. The patient, during that hospital stay, was started on some Provigil. He did have elevation of pCO2 levels. He was treated with some BiPAP during that hospital stay as well. The patient was readmitted on February with confusion. The patient himself is a very poor historian. Reportedly, he has a history of sleep apnea. It is unknown where that diagnosis was made. There was a note suggesting that he initially had a study in [place]. The patient cannot give me any of this detail. He essentially refuses to wear his CPAP at home. In the hospital, he is usually reluctant to wear it. He admits he does not like things on his face. His RN tells me that he did wear it during the day yesterday and he wore it overnight last night. Nursing staff asked to be boyd with him to get him to keep it on, however. I did not see a BiPAP machine in his home. I then reviewed the nurses' notes from last night where they indicated that the patient refused BiPAP. Many providers have spoken with the patient and tried to explain to him how important it is to wear this. I do not know with certainty whether he had mild, moderate or severe apnea. He has had blood gases showing elevation of pCO2, but with a normal pH. Three gases have been done during this stay and the pCO2 levels have been ranging at 52 or 53, but the pH levels have been normal at 7.40. This would imply that his baseline pCO2 levels are about 52. Thus, I would not expect this alone would be causing him to have severe hypersomnolence. The patient denies any history of lung problems. He denies significant shortness of breath. He tells me that he quit smoking when he was 26 years old. If this is true, he would have a very small amount of pack years. Again, I cannot verify that what he tells me is accurate. 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 At the time of admission, the patient was reportedly very weak. He had increased jerky movements. He is more awake now than he had been. The patient tells me that sometimes he is up all night. He usually sleeps in a recliner chair. He states his does not like the sound of the CPAP. He also admits he does not like the mask and he feels claustrophobic. The patient acknowledges that he often goes back to sleep after breakfast. He will sleep for about 4 hours and get up between 2 and 3 p.m. Once again, I am not sure if any of this is totally reliable or not. He denies cough, sputum production or hemoptysis. He denies chest pain, chills, fevers or sweats. He has been followed by neurology during this hospital stay. They indicate that he has an encephalopathy related to multiple factors, but possibly including hypoxia and gabapentin. The gabapentin dose has been reduced. PAST SURGICAL HISTORY: 1. Cataract surgery. 2. Eye lid surgery. 3. Left foot surgery. 4. Panniculectomy. 5. Tonsillectomy. PAST MEDICAL HISTORY: 1. Obesity hypoventilation syndrome. 2. Diabetes mellitus with neuropathy. 3. Sleep apnea as noted. 4. Anxiety. 5. Depression. 6. Diastolic CHF. 7. Hypertension. 8. GERD. 9. Urinary tract infections. SOCIAL HISTORY: Tobacco none for 50 years. ETOH -- admits that he drank heavily in the past, but he insists that he quit drinking the same time he quit smoking at age 26. FAMILY HISTORY: Reportedly positive for diabetes, coronary artery disease, CHF, and hypertension. MEDICATIONS: At home: 1. Aspirin 81 mg daily. 2. Finasteride 5 mg daily. 3. Folic acid 1 mg daily. 4. Furosemide 80 mg b.i.d. 5. Gabapentin 600 mg q.i.d. 6. NovoLog insulin. 7. Lantus insulin. 8. Lactobacillus. 9. Magnesium. 10. Zaroxolyn 5 mg 2 times per week. 11. Metoprolol 12.5 mg b.i.d., 12. Modafinil 100 mg daily -- the patient did not get the prescription filled. 13. Omeprazole 20 mg daily. 14. Potassium 40 mEq b.i.d. 15. Simvastatin 40 mg at bedtime. 16. Tamsulosin 0.4 mg at bedtime. 17. Venlafaxine 75 mg b.i.d. REVIEW OF SYSTEMS: Negative except for the above-mentioned complaints, but clearly acknowledging that the patient is not a good historian. PHYSICAL EXAMINATION: GENERAL: Mr. Bowen is a 76-year-old male who was cooperative. He seemed quite alert. He was fairly oriented. VITAL SIGNS: Temperature was 36.5. The patient's heart rate is 69 per minute. Rhythm is regular. Blood pressure is 116/75. HEENT: Pupils were reactive. Nasal cannula was in place. Mouth exam showed an absence of teeth. NECK: Palpation of the neck reveals no lymph nodes or masses. LUNGS: Lung almodovar were clear bilaterally. No wheezes, rales or rhonchi were heard. Oxygen saturation was 97% on 3 liters. ABDOMEN: Obese. He does have a prominent lower abdominal panus. Bowel sounds were normal. There was no tenderness to palpation. Osorio catheter is in place. EXTREMITIES: Reveal a lot of small skin eruptions especially on the lower legs. His feet are somewhat swollen. Some of his toes looked like they may have been infected in the past. Chest x-ray done on admission showed essentially hypoventilatory changes. I suspect the patient simply did not take a deep breath. There was haziness at the left base, which I suspect was from the hypoventilatory change. CAT scan of his head showed no acute changes. He is scheduled for an MRI. Carotid artery ultrasound was apparently limited. No significant stenosis was seen in the right internal carotid artery. Most recent blood gas done yesterday showed a pH of 7.40, pCO2 of 52, and pO2 of 63 on 2 liters. Most recent electrolytes as of February 15 showed sodium 139, potassium 3.5, chloride 102, and bicarbonate 33. BUN was 13 with a creatinine of 1. Blood sugar was 195. Folic acid level was greater than 24. B12 level is 864. Troponin was negative on admission. Urine drug screen was negative. RPR was nonreactive. White count as of yesterday was 7.87. Hemoglobin 11.4. Platelets 228,000. Coags were normal. IMPRESSIONS: 1. Altered mental status of undetermined etiology. 2. Obstructive sleep apnea by history -- noncompliant with nasal CPAP. COMMENTS AND RECOMMENDATIONS: The patient seems committed to not wearing CPAP. He gave me nothing to suggest that he was willing to give it a good try. The initial report had a word that he wore it last night, but reading the nurses' notes, he did refuse. I am fairly certain that if he refuses it in the hospital, he is not going to wear at home. His baseline pCO2 is elevated, but with a normal pH, suggesting that this is chronic. It certainly may be contributed to by sleep apnea, but the modest elevation of pCO2 itself should not make him encephalopathic. He may have a degree of obesity hypoventilation syndrome as well. I have no specific recommendations at present from a sleep perspective. I will see again if specifically requested. Thank you for asking me to assist in his care. ARACELI
--- NOTE | 2017-02-17 15:07 | Pharmacy Progress Note ---
Glycemic Control Progress Note Date of Service Feb 17, 2017. Scope Glycemic Pharmacist consulted for glycemic control to write orders per [facility] inpatient glycemic control protocol. Objective Accuchecks BSG (last 24hrs): Test 02/16/17 16:10 02/16/17 20:14 02/17/17 06:25 02/17/17 10:32 Bedside Glucose 169 mg/dl (70-99) 208 mg/dl (70-99) 195 mg/dl (70-99) 230 mg/dl (70-99) Recent Pertinent Medications Outpatient Anti-diabetic Regimen: * Lantus 20 units SQ QPM * Novolog sliding scale 2-8 units * A1c = 10.1 % 02/04/17 The patient is currently receiving: * Basal insulin: Lantus every 12 hours * For BSG < 120mg/dl - 4 units * For BSG 120-180mg/dl - 8 units * For BSG > 180mg/dl - 10 units * Correctional Insulin: Novolog Correction per scale ACHS Goal Range: Low 120 mg/dL - High 150 mg/dL Correction Factor: 35 mg/dL/unit * Prandial insulin: Per carb ratio of 1 unit per 12 grams CHO consumed Risk Factors for Insulin Resistance: * Diet: Type 2 DM Assessment & Plan ASSESSMENT: 02/14/17 * 76 year old male type 2 diabetic, uncontrolled as outpatient, known to pharmacy glycemic service, admitted with AMS * Pt hyperglycemic on admission, started on home dose of Lantus, split BID dosing as inpatient on clear liquid diet, BSG did fall to 61mg/dl at 0200 and was treated with OJ last night, and was then up to 225mg/dl with breakfast. BSG at 96mg/dl now prior to lunch. * Will loosen CF and CR and keep Lantus on a scale per BSG at this time to prevent further hypoglycemia. * ADA & AACE recommend a goal blood sugar range 140-180 mg/dl for the majority of critically ill & non-critically ill patients. However, more stringent targets may be selected in individual cases. For patient's age and co- morbidities and recent hypoglycemia, will use 120-150mg/dl. 02/17/17 * Blood sugars better the past two days, but slightly above goal today, will tighten CR and CF slightly. Making small changes as patient did have a hypoglycemic episode of BSG 61mg/dl on 02/13. * Patient on Lantus Q12H based on BSG, pt should have received 10 units last night and only received 8 units by nursing, which could also be contributing to higher BSGs today. PLAN FOR INPATIENT GLYCEMIC CONTROL: * Continue Basal insulin with LANTUS SQ BID * For BSG < 120mg/dl - 4 units * For BSG 120-180mg/dl - 8 units * For BSG > 180mg/dl - 10 units * Correctional Insulin with NOVOLOG per scale ACHS or Q6hrs while NPO * Goal Range: Low 120 mg/dL - High 150 mg/dL * TIGHTEN: Correction Factor: 30 mg/dL/unit * TIGHTEN: Nutritional / Prandial insulin per carb ratio of 1 unit per 10 grams CHO consumed * Please note that the plan above was derived based on current level of insulin resistance and hospital stress. These recommendations are appropriate for inpatient admission only. Plan of care upon discharge will need to be reassessed to avoid potential outpatient hypo/hyperglycemia. Thank you.
[2017-02-17 19:17] VITALS: BP 159/89; PULSE 74; TEMP 36.6; O2SAT 97
[2017-02-17] MEDS: SIMVASTATIN 40 MG TAB PO SCH (20:06)
[2017-02-17] MEDS: TAMSULOSIN HCL 0.4 MG CAP PO SCH (20:07)
[2017-02-17 23:15] VITALS: BP 142/62; PULSE 75; TEMP 36.9; O2SAT 94
[2017-02-18 04:10] VITALS: BP 115/69; PULSE 82; TEMP 36.9; O2SAT 90
[2017-02-18] MEDS: HEPARIN SOD 5000 UNIT/0.5 ML CARP SQ SCH ×3 (05:44→21:10)
[2017-02-18] MEDS: NYSTATIN POWDER 15GM BTL EXT SCH ×3 (07:41→21:13)
[2017-02-18] MEDS: MAGNESIUM OXIDE 400 MG TAB PO SCH (07:41)
[2017-02-18] MEDS: NYSTATIN/TRIAMCINOLONE CR 15 GM TUBE EXT SCH ×2 (07:41→21:13)
[2017-02-18] MEDS: FINASTERIDE 5 MG TAB PO SCH (07:42)
[2017-02-18] MEDS: MULTIVITAMIN TAB PO SCH (07:42)
[2017-02-18] MEDS: LACTOBACILLUS ACIDOPHILUS (FLORANEX) TAB PO SCH (07:43)
[2017-02-18] MEDS: ASPIRIN 81 MG ECTAB PO SCH (07:43)
[2017-02-18] MEDS: GABAPENTIN 300 MG CAP PO SCH ×2 (07:43→21:04)
[2017-02-18] MEDS: METOPROLOL TARTRATE 25 MG TAB PO SCH ×2 (07:44→21:03)
[2017-02-18] MEDS: FUROSEMIDE 40 MG TAB PO SCH ×2 (07:45→18:01)
[2017-02-18] MEDS: PANTOprazole SOD 40 MG TAB PO SCH (07:47)
[2017-02-18] MEDS: MODAFINIL 100 MG TAB PO SCH (07:54)
[2017-02-18] MEDS: INSULIN GLARGINE SOLOSTAR 100 UNITS/ML 3 ML PEN SC SCH ×2 (07:56→21:10)
[2017-02-18] MEDS: INSULIN ASPART 100 UNITS/ML 3 ML PEN SC SCH ×4 (07:58→21:09)
[2017-02-18 08:09] VITALS: BP 152/84; PULSE 78; TEMP 36.6; O2SAT 3
--- NOTE | 2017-02-18 11:55 | Pharmacy Progress Note ---
Glycemic Control Progress Note Date of Service Feb 18, 2017. Scope Glycemic Pharmacist consulted for glycemic control to write orders per [facility] inpatient glycemic control protocol. Objective Accuchecks BSG (last 24hrs): Test 02/17/17 16:16 02/17/17 20:10 02/18/17 06:45 02/18/17 11:07 Bedside Glucose 124 mg/dl (70-99) 215 mg/dl (70-99) 190 mg/dl (70-99) 130 mg/dl (70-99) Recent Pertinent Medications The patient is currently receiving: * Basal insulin: LANTUS SQ BID * For BSG < 120mg/dl - 4 units * For BSG 120-180mg/dl - 8 units * For BSG > 180mg/dl - 10 units * Correctional Insulin: Novolog Correction per scale ACHS Goal Range: Low 120 mg/dL - High 150 mg/dL Correction Factor: 30 mg/dL/unit * Prandial insulin: Per carb ratio of 1 unit per 10 grams CHO consumed Outpatient Anti-Diabetic Meds Basal Insulin Bolus Insulin Assessment & Plan ASSESSMENT: * Patient is currently receiving an average of 40 units of insulin per day * 20 units of basal insulin * 20 units of prandial/correctional insulin * BSGs ranging 124 - 230 mg/dl over the past 24hrs * Changes needed to insulin regimen: * AM Fasting BSG = 190 mg/dl. This is in slightly above goal range for patient based on inpatient targets and co-morbidities. Therefore Basal insulin needs increased * Post-prandial BSGs are elevated/BSGs rise throughout the day therefore need to tighten CF/CR * Total daily dose: Increase in total daily dose is needed - both basal and prandial PLAN FOR INPATIENT GLYCEMIC CONTROL: * Basal insulin * Continue Basal insulin with LANTUS SQ BID * For BSG < 120mg/dl - 4 units * For BSG 120-180mg/dl - 8 units * INCREASE For BSG > 180mg/dl - 13 units * Bolus insulin : tighten * NovoLog per scale ACHS or Q6hrs while NPO * Goal Range: Low 120 mg/dL - High 150 mg/dL * Correction Factor: 20 mg/dL/unit * Nutritional / Prandial insulin per carb ratio of 1 unit per 6 grams CHO consumed * Please note that the plan above was derived based on current level of insulin resistance and hospital stress. These recommendations are appropriate for inpatient admission only. Plan of care upon discharge will need to be reassessed to avoid potential outpatient hypo/hyperglycemia. Thank you.
[2017-02-18 12:07] VITALS: BP 152/74; PULSE 75; TEMP 36.9; O2SAT 100
[2017-02-18 15:15] VITALS: BP 156/72; PULSE 94; TEMP 36.9; O2SAT 93
--- NOTE | 2017-02-18 19:34 | Neurology Progress Notes ---
Neurology Progress Note Date of Service Feb 18, 2017. Darron Fraser is a 76 year old male who presents to the ED with confusion. He had an admission on 02/03 - 02/09 and was treated for altered mental status, UTI, wound infection, and CHF. He had altered mental status and acute on chronic hypercapnic respiratory failure requiring intubation. He was successfully extubated and used PRN BiPap through the rest of his stay. He was also started on Provigil to help with day time sleepiness but he was not taking it at home because it was not covered by insurance. He was also treated for acute on chronic diastolic CHF with diuresis. UTI and wounds grew enterococcus and previous right great toe wound wound grew MRSA and was treated with Vanco and subsequently Augmentin and Doxy to finish the course.He was getting more confused and sleepy at home. At baseline he is wheelchair bound but does transfer at home but he fell with transferring to the bed. He states he takes Ultram at home but uncertain how often he takes it. He has macular degeneration which impairs his vision greatly. He has a bad right knee and severe DM peripheral neuropathy. He is awake and alert. He states he is going to [facility] for rehab prior to return home. denies CP, SOB, abdominal pain, N, V. Objective Date Time Temp Pulse Resp B/P (MAP) Pulse Ox O2 Delivery O2 Flow Rate FiO2 02/18/17 16:00 Room Air 02/18/17 15:15 36.9 94 20 156/72 (100) 93 Room Air 02/18/17 12:07 36.9 75 20 152/74 (100) 100 Room Air 02/18/17 12:00 Nasal Cannula 2.0 02/18/17 08:09 36.6 78 22 152/84 (106) 3 Room Air 3.0 02/18/17 08:00 Nasal Cannula 2.0 02/18/17 04:10 36.9 82 20 115/69 (84) 90 Room Air 02/18/17 04:00 Nasal Cannula 2.0 02/18/17 00:00 Nasal Cannula 2.0 02/17/17 23:15 36.9 75 24 142/62 (88) 94 Room Air 02/17/17 20:00 Nasal Cannula 2.0 Last 24 Hours Test 02/17/17 20:10 02/18/17 06:45 02/18/17 11:07 02/18/17 16:12 Bedside Glucose 215 mg/dl 190 mg/dl 130 mg/dl 185 mg/dl Imaging: carotid doppler Allowing for the limited exam, no hemodynamically significant stenosis seen within the right internal carotid artery. 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 ACHS SC 02/13/17 21:00 03/15/17 20:59 02/18/17 17:57 5 UNITS Glucose (Glucose 40% Gel) 15-30 GRAMS 15 GRAMS... UD PRN PO 02/13/17 17:00 03/15/17 16:59 Glucose (Glucose Chew Tab) 4-8 Tablets 4 Tabl... UD PRN PO 02/13/17 17:00 03/15/17 16:59 Dextrose (Dextrose 50% 50ML Syringe) 25-50ML OF 50% DW IV FOR... UD PRN IV 02/13/17 17:00 03/15/17 16:59 02/15/17 18:31 50 ML Glucagon (Glucagon Inj) 1 mg UD PRN SQ 02/13/17 17:00 03/15/17 16:59 Miscellaneous Information (Consult Glycemic Management Pharmacy) 1 ea UD PRN N/A 02/13/17 18:08 03/15/17 18:07 Aspirin (Ecotrin Tab) 81 mg DAILY PO 02/14/17 09:00 03/16/17 08:59 02/18/17 07:43 81 MG Finasteride (Proscar Tab) 5 mg QAM PO 02/14/17 09:00 03/16/17 08:59 02/18/17 07:42 5 MG Folic Acid (Folvite Tab) 1 mg DAILY PO 02/14/17 09:00 03/16/17 08:59 02/18/17 07:45 1 MG Magnesium Oxide (Mag-Ox Tab) 400 mg DAILY PO 02/14/17 09:00 03/16/17 08:59 02/18/17 07:41 400 MG Metoprolol Tartrate (Lopressor Tab) 12.5 mg BID PO 02/13/17 21:00 03/15/17 20:59 02/18/17 07:44 12.5 MG Multivitamins (Multivitamin Tab) 1 tab DAILY PO 02/14/17 09:00 03/16/17 08:59 02/18/17 07:42 1 TAB Nystatin (Mycostatin Powder) 1 appln TID EXT 02/13/17 21:00 03/15/17 20:59 02/18/17 15:19 1 APPLN Nystatin/ Triamcinolone Acetonide (Mycogen II Crm) 1 appln BID EXT 02/13/17 21:00 03/15/17 20:59 02/18/17 07:41 1 APPLN Simvastatin (Zocor Tab) 40 mg HS PO 02/13/17 21:00 03/15/17 20:59 02/17/17 20:06 40 MG Tamsulosin HCl (Flomax Cap) 0.4 mg HS PO 02/13/17 21:00 03/15/17 20:59 02/17/17 20:07 0.4 MG Lactobacillus Acidophilus (Floranex Tab) 4 tab DAILY PO 02/14/17 09:00 03/16/17 08:59 02/18/17 07:43 4 TAB Pantoprazole Sodium (Protonix Tab) 40 mg QAM PO 02/14/17 09:00 03/16/17 08:59 02/18/17 07:47 40 MG Insulin Glargine (Lantus Solostar Pen) SEE PROTOCOL TEXT BID SC 02/13/17 21:00 03/15/17 20:59 02/18/17 07:56 10 UNITS Modafinil (proVIGIL TAB) 100 mg QAM PO 02/15/17 09:00 03/17/17 08:59 02/18/17 07:54 100 MG Gabapentin (Neurontin Cap) 300 mg BID PO 02/16/17 21:00 03/18/17 20:59 02/18/17 07:43 300 MG Ioversol (Optiray 320) 100 ml UD PRN IV 02/16/17 12:15 02/20/17 12:14 Furosemide (Lasix Tab) 40 mg BID17 PO 02/17/17 09:00 03/19/17 08:59 02/18/17 18:01 40 MG Impression 76 year old male chronic medical issues with MS change -now back to baseline Plan 1. gabapentin [id number] mg BID 2. MRI with and without contrast for any lesions or structural issues unable to tolerate- he is willing to try again 3. PT/OT 4. ultram can cause confusion would not give for pain mgt 5. monitor for any infectious process or metabolic issues that can be corrected 6. fall risk 7. will need rehab prior to return to home- [place] tomorrow 8. EEG no seizure focus 9. ammonia level normal range 12 10. carotid doppler ordered- reordered due to incomplete evaluation on left Pt seen and examined, no longer appears delirious. Suspect these two episodes related to hypoxemia, hypercarbia and medications. MRI to r/o infarct, BRANDIE. Carotid US as prior was nondiagnostic, DEIDRA Lynn MD I have seen and discussed above patient with Dr Seda Lynn, neurology
[2017-02-18 19:47] VITALS: BP 148/78; PULSE 94; TEMP 36.7; O2SAT 93
--- NOTE | 2017-02-18 20:03 | Progress Note ---
Medicine Progress Note Date & Time of Visit: Feb 18, 2017 at 20:03. Subjective seen sitting up bed, comfortable oriented x 3, not in distress denies confusion, states he feels "super" denies dyspnea, chest pain awake today , eating meals per RN no other symptoms Objective Last 8 Hrs Date Time Temp Pulse Resp B/P (MAP) Pulse Ox O2 Delivery O2 Flow Rate FiO2 02/18/17 16:00 Room Air 02/18/17 15:15 36.9 94 20 156/72 (100) 93 Room Air 02/18/17 12:07 36.9 75 20 152/74 (100) 100 Room Air Physical Exam: General-oriented x 3, not in distress, speaks in sentences with no effort Eyes- anicteric Neck- no JVD Lungs- clear breath sounds bilaterally Heart- regular rhythm; no murmur, normal rate Abdomen- normal bowel sounds, soft, nontender Extremities- trace pretibial edema, no calf tenderness Neuro- oriented x 3, no gross focal neuro deficits Skin- warm & dry Laboratory Results: Last 24 Hours Test 02/17/17 20:10 02/18/17 06:45 02/18/17 11:07 02/18/17 16:12 Bedside Glucose 215 mg/dl 190 mg/dl 130 mg/dl 185 mg/dl Assessment & Plan 75 year old male with history of CHF Diastolic Type, DM, HTN, GILLES, other problems noted below presenting with altered mental status. ALTERED MENTAL STATUS/ENCEPHALOPATHY - possibly multifactorial - patient presenting with increasing weakness and altered mental status x 4 days ; recent admission for similar presentation - from [place] and non adherence to CPAP? daily ABGs showing pH 7.4, compensated respiratory acidosis used Bipap 2 days ago for a few hours for the first time and mental status is much better today - from medications? resumed Gabapentin- decreased dose further, mental status much improved today resumed Provigil during this admission held Effexor - underlying seizure disorder unlikely EEG: non specific --CVA ruled out MRI brain pending- patient cannot tolerate CT head: limited, no acute findings - Infection ruled out no signs of active infection at this time cultures negative - ammonia normal -- mental status back to baseline x 2 days now awaiting MRI Brain if negative, possible d/c to [facility] tomorrow MILD RENEA - baseline creat runs in the low 1's - up to 1.5 on admission - likely prerenal - resolved - given IV fluids - resumed Lasix BPH WITH CHRONIC HUNTER - completed antibiotics last week for UTI DM - hgb a1c 10.1 01/2017 - Lantus + SSI - pharmacy glycemic consult HTN - BP controlled overall, continue metoprolol CHRONIC DIASTOLIC CHF - appeared volume depleted on admission - IV fluids given initially - resumed Lasix 40mg po daily GILLES - management from #1 DVT PROPHYLAXIS - SQ Heparin CODE STATUS Full Code DISPO - PT/OT, case management consults -- mental status back to baseline x 2 days now awaiting MRI Brain if negative, possible d/c to [facility] tomorrow Current Inpatient Medications: Current Inpatient Medications Medications (Trade) Dose Ordered Sig/Bj Route Start Time Stop Time Status Last Admin Dose Admin Heparin Sodium (Porcine) (Heparin Sq 5000 Unit/0.5ml) 5,000 unit Q8 SQ 02/13/17 22:00 03/15/17 21:59 02/18/17 15:20 5,000 UNIT Acetaminophen (Tylenol Tab) 650 mg Q4H PRN PO 02/13/17 16:15 03/15/17 16:14 02/15/17 02:23 650 MG Ondansetron HCl (Zofran Inj) 4 mg Q6H PRN IV 02/13/17 16:15 03/15/17 16:14 Insulin Aspart (novoLOG ASPART) SLIDING SCALE If C... ACHS SC 02/13/17 21:00 03/15/17 20:59 02/18/17 17:57 5 UNITS Glucose (Glucose 40% Gel) 15-30 GRAMS 15 GRAMS... UD PRN PO 02/13/17 17:00 03/15/17 16:59 Glucose (Glucose Chew Tab) 4-8 Tablets 4 Tabl... UD PRN PO 02/13/17 17:00 03/15/17 16:59 Dextrose (Dextrose 50% 50ML Syringe) 25-50ML OF 50% DW IV FOR... UD PRN IV 02/13/17 17:00 03/15/17 16:59 02/15/17 18:31 50 ML Glucagon (Glucagon Inj) 1 mg UD PRN SQ 02/13/17 17:00 03/15/17 16:59 Miscellaneous Information (Consult Glycemic Management Pharmacy) 1 ea UD PRN N/A 10/4/17 18:08 03/15/17 18:07 Aspirin (Ecotrin Tab) 81 mg DAILY PO 02/14/17 09:00 03/16/17 08:59 02/18/17 07:43 81 MG Finasteride (Proscar Tab) 5 mg QAM PO 02/14/17 09:00 03/16/17 08:59 02/18/17 07:42 5 MG Folic Acid (Folvite Tab) 1 mg DAILY PO 02/14/17 09:00 03/16/17 08:59 02/18/17 07:45 1 MG Magnesium Oxide (Mag-Ox Tab) 400 mg DAILY PO 02/14/17 09:00 03/16/17 08:59 02/18/17 07:41 400 MG Metoprolol Tartrate (Lopressor Tab) 12.5 mg BID PO 02/13/17 21:00 03/15/17 20:59 02/18/17 07:44 12.5 MG Multivitamins (Multivitamin Tab) 1 tab DAILY PO 02/14/17 09:00 03/16/17 08:59 02/18/17 07:42 1 TAB Nystatin (Mycostatin Powder) 1 appln TID EXT 02/13/17 21:00 03/15/17 20:59 02/18/17 15:19 1 APPLN Nystatin/ Triamcinolone Acetonide (Mycogen II Crm) 1 appln BID EXT 02/13/17 21:00 03/15/17 20:59 02/18/17 07:41 1 APPLN Simvastatin (Zocor Tab) 40 mg HS PO 02/13/17 21:00 03/15/17 20:59 02/17/17 20:06 40 MG Tamsulosin HCl (Flomax Cap) 0.4 mg HS PO 02/13/17 21:00 03/15/17 20:59 02/17/17 20:07 0.4 MG Lactobacillus Acidophilus (Floranex Tab) 4 tab DAILY PO 02/14/17 09:00 03/16/17 08:59 02/18/17 07:43 4 TAB Pantoprazole Sodium (Protonix Tab) 40 mg QAM PO 02/14/17 09:00 03/16/17 08:59 02/18/17 07:47 40 MG Insulin Glargine (Lantus Solostar Pen) SEE PROTOCOL TEXT BID SC 02/13/17 21:00 03/15/17 20:59 02/18/17 07:56 10 UNITS Modafinil (proVIGIL TAB) 100 mg QAM PO 02/15/17 09:00 03/17/17 08:59 02/18/17 07:54 100 MG Gabapentin (Neurontin Cap) 300 mg BID PO 02/16/17 21:00 03/18/17 20:59 02/18/17 07:43 300 MG Ioversol (Optiray 320) 100 ml UD PRN IV 02/16/17 12:15 02/20/17 12:14 Furosemide (Lasix Tab) 40 mg BID17 PO 02/17/17 09:00 03/19/17 08:59 02/18/17 18:01 40 MG
[2017-02-18] MEDS: SIMVASTATIN 40 MG TAB PO SCH (21:03)
[2017-02-18] MEDS: TAMSULOSIN HCL 0.4 MG CAP PO SCH (21:04)
--- NOTE | 2017-02-18 22:56 | DIAGNOSTIC IMAGING REPORT ---
Brain MRI WITH AND WITHOUT CONTRAST HISTORY: Mental status change. TECHNIQUE: Multiplanar multisequence MRI of the brain was performed both before and after the intravenous administration of contrast. COMPARISON STUDY: Head CT 02/13/2017. FINDINGS: Motion artifact. There is no mass, hematoma, midline shift, or acute infarct. The paranasal sinuses are clear. The mastoid air cells are clear. The ventricles and sulci demonstrate mild age-related involutional changes. Scattered foci of T2 hyperintensity seen within the periventricular and subcortical white matter are nonspecific but suggestive of mild microvascular ischemic changes. The major vascular flow voids at the skull base are well-maintained. IMPRESSION: Motion artifact. No definite acute intracranial abnormality. Electronically signed by: Ed Turner M.D. 02/18/2017 10:55 PM Dictated Date/Time: 02/18/2017 10:49 PM
[2017-02-18 23:36] VITALS: BP 147/81; PULSE 83; TEMP 37; O2SAT 99
[2017-02-19] VITALS (7 sets, daily range): BP systolic 122–151; BP diastolic 69–84; PULSE 70–78; TEMP 36.3–37; O2SAT 92–100
[2017-02-19] MEDS: HEPARIN SOD 5000 UNIT/0.5 ML CARP SQ SCH ×3 (06:20→21:56)
[2017-02-19 06:37] LABS: HEMATOCRIT 36.7 % (42-52); MEAN CELL VOLUME 75.1 fL (80-100); MEAN CORPUSCULAR HEMOGLOBIN 22.1 pg (25-34); MEAN CORPUSCULAR HGB CONC 29.4 g/dl (32-36); MEAN PLATELET VOLUME 10.5 fL (7.4-10.4); PLATELET COUNT 256 K/uL (130-400); RED BLOOD COUNT 4.89 M/uL (4.7-6.1); WHITE BLOOD COUNT 7.84 K/uL (4.8-10.8)
--- NOTE | 2017-02-19 07:09 | DIAGNOSTIC IMAGING REPORT ---
ULTRASOUND OF THE CAROTID ARTERIES CLINICAL HISTORY: Change in mental status. COMPARISON STUDY: Carotid artery ultrasound dated 02/15/2017. TECHNIQUE: Real-time, grayscale, and color Doppler sonography of the carotid arteries is performed. Images are reviewed in the transverse and longitudinal planes. Examination is degraded by lack of patient cooperation. FINDINGS: The patient declined blood pressure assessment. The carotid arteries are patent bilaterally and demonstrate antegrade flow. There is mild atherosclerotic plaque identified. Normal doppler arterial waveforms are seen throughout. Velocity measurements are listed below. Common carotid peak systolic velocity (cm/sec): RIGHT: 74 LEFT: 42 ICA proximal peak systolic velocity (cm/sec): RIGHT: 66 LEFT: 59 ICA mid peak systolic velocity (cm/sec): RIGHT: 66 LEFT: 70 ICA distal peak systolic velocity (cm/sec): RIGHT: 60 LEFT: 103 ICA/CC peak systolic ratio: RIGHT: 0.9 LEFT: 1.1 Antegrade flow was shown in the vertebral arteries. The external carotid arteries are patent. IMPRESSION: 1. There is no sonographic evidence of hemodynamically significant stenosis in the right or left carotid arterial system. 2. Antegrade flow is shown in the vertebral arteries. Electronically signed by: Porfirio Santillan M.D. 02/19/2017 7:09 AM Dictated Date/Time: 02/19/2017 7:07 AM
[2017-02-19] MEDS: INSULIN ASPART 100 UNITS/ML 3 ML PEN SC SCH ×4 (07:43→21:55)
[2017-02-19] MEDS: INSULIN GLARGINE SOLOSTAR 100 UNITS/ML 3 ML PEN SC SCH (07:43)
[2017-02-19] MEDS: ASPIRIN 81 MG ECTAB PO SCH (07:44)
[2017-02-19] MEDS: NYSTATIN POWDER 15GM BTL EXT SCH ×3 (07:44→21:48)
[2017-02-19] MEDS: FUROSEMIDE 40 MG TAB PO SCH ×2 (07:44→17:00)
[2017-02-19] MEDS: NYSTATIN/TRIAMCINOLONE CR 15 GM TUBE EXT SCH ×2 (07:44→21:48)
[2017-02-19] MEDS: GABAPENTIN 300 MG CAP PO SCH ×2 (07:44→21:48)
[2017-02-19] MEDS: METOPROLOL TARTRATE 25 MG TAB PO SCH ×2 (07:45→21:52)
[2017-02-19] MEDS: LACTOBACILLUS ACIDOPHILUS (FLORANEX) TAB PO SCH (07:45)
[2017-02-19] MEDS: MAGNESIUM OXIDE 400 MG TAB PO SCH (07:45)
[2017-02-19] MEDS: FINASTERIDE 5 MG TAB PO SCH (07:45)
[2017-02-19] MEDS: PANTOprazole SOD 40 MG TAB PO SCH (07:46)
[2017-02-19] MEDS: MULTIVITAMIN TAB PO SCH (07:46)
--- NOTE | 2017-02-19 10:20 | Pharmacy Progress Note ---
Glycemic: Assessment & Plan Date of Service Feb 19, 2017. Assessment & Plan The patient is currently receiving ~45 units of insulin per day. BSGs ranging 130 - 202 mg/dl over the past 24hrs. * Basal insulin: Lantus 10-13 units every 12 hours * Correctional Insulin: Novolog Correction per scale ACHS Goal Range: Low 120 mg/dL - High 150 mg/dL Correction Factor: 20 mg/dL/unit * Prandial insulin: Per carb ratio of 1 unit per 6 grams CHO consumed PLAN: * Plan is to discharge patient soon. Basal insulin is currently being dosed BID but patient uses Lantus once daily at bedtime, will work dosing back to HS only. * Pt received 13 units of Lantus this morning, will give 18 units this evening and then start daily dosing tomorrow. * Lantus 25 units SQ with dinner 02/20 and then Lantus 25 units SQ at HS / * A1c is elevated at 10%, likely changes needed to outpatient regimen. Lantus 25 units is slightly higher than outpatient dosing of 20 units HS. * Post-prandial BSGs are slightly elevated, will tighten cf/cr to 15/5 respectively. * Pharmacy will continue to monitor patient daily and write orders per [facility] inpatient glycemic control protocol. Thanks. * Please note that the plan above was derived based on current level of insulin resistance and hospital stress. These recommendations are appropriate for inpatient admission only. Plan of care upon discharge will need to be reassessed to avoid potential outpatient hypo/hyperglycemia.
[2017-02-19] MEDS: MODAFINIL 100 MG TAB PO SCH (11:48)
--- NOTE | 2017-02-19 12:54 | Progress Note ---
Medicine Progress Note Date & Time of Visit: Feb 19, 2017 at 12:35. Subjective per RN and notes, patient was confused in the middle of the night- called raise drill operator saying he was lost, became agitated when staffing mgr informed him he cannot use the phone due to confusion, required sitter overnight for safety, refused to use Bipap this AM, patient was alert, oriented again visited and told staff he is 100% better, as per RN Sunny tolerated breakfast seen sleeping but easily rousable, oriented x 2, at baseline mental status, based on what I know of him from previous admissions denies chest pain, dyspnea, cough, headache, dizziness does not recall events of last night encouraged to use CPAP brought from home consistently, patient verbalized understanding and agreement no other symptoms Objective Last 8 Hrs Date Time Temp Pulse Resp B/P (MAP) Pulse Ox O2 Delivery O2 Flow Rate FiO2 02/19/17 12:08 37.0 78 20 142/82 (102) 96 Nasal Cannula 4.0 02/19/17 08:00 Room Air 02/19/17 06:54 36.3 71 24 144/73 (96) 100 Nasal Cannula 4.0 Physical Exam: General-oriented x 3, not in distress, speaks in sentences with no effort Eyes- anicteric Neck- no JVD Lungs- clear breath sounds bilaterally, no rales, no wheezing Heart- regular rhythm; no murmur, normal rate Abdomen- normal bowel sounds, soft, nontender Extremities- trace pretibial edema, no calf tenderness Neuro- oriented x 3, no gross focal neuro deficits Skin- warm & dry Laboratory Results: Last 24 Hours Test 02/18/17 16:12 02/18/17 20:27 02/19/17 06:10 02/19/17 06:20 Bedside Glucose 185 mg/dl 202 mg/dl 198 mg/dl White Blood Count 7.84 K/uL Red Blood Count 4.89 M/uL Hemoglobin 10.8 g/dL Hematocrit 36.7 % Mean Corpuscular Volume 75.1 fL Mean Corpuscular Hemoglobin 22.1 pg Mean Corpuscular Hemoglobin Concent 29.4 g/dl RDW Standard Deviation 48.7 fL RDW Coefficient of Variation 17.7 % Platelet Count 256 K/uL Mean Platelet Volume 10.5 fL Test 02/19/17 11:26 Bedside Glucose 234 mg/dl Assessment & Plan 75 year old male with history of CHF Diastolic Type, DM on Insulin, Hypertension , Obstructive Sleep Apnea , non adherent with CPAP, Chronic Hunter Cath due to BPH, other problems noted below presenting with altered mental status. ALTERED MENTAL STATUS/ENCEPHALOPATHY - possibly multifactorial - patient readmitted with increasing weakness and altered mental status x 4 days ; admitted few days prior due to altered mental status, CHF exacerbation - likely from GILLES and non adherence to CPAP daily ABGs showing pH 7.4, compensated respiratory acidosis when using Bipap as inpatient more consistently, mental status improves and return to baseline resumed Provigil daily that was started last admission encouraged patient to use CPAP while sleeping more consistently to avoid confusion and chronic hypoxia, and he verbalized agreement and understanding - from medications? Gabapentin dose decreased from 600 QID to 300mg BID - underlying seizure disorder unlikely EEG: non specific --CVA ruled out MRI brain: no acute process, microvascular ischemic changes CT head: limited, no acute findings - Infection ruled out no signs of active infection at this time cultures negative - ammonia normal -- mental status back to baseline overall for the past few days now encourage to use CPAP daily with naps and at HS no benzodiazepenes or other psychogenic medications monitor for confusion/delirium episodes MILD ACUTE RENAL FAILURE - baseline creat runs in the low 1's - up to 1.5 on admission - likely prerenal - resolved - given IV fluids - resumed Lasix BPH WITH CHRONIC HUNTER - completed antibiotics last week for UTI - change Hunter accordingly DM - hgb a1c 10.1 01/2017 usually on Insulin Aspart TID and Lantus at home - on Lantus and ISS as inpatient continue for now monitor BSGs HTN - BP controlled overall, continue metoprolol CHRONIC DIASTOLIC CHF - appeared volume depleted on admission - IV fluids given initially - resumed Lasix 40mg po daily monitor volume status daily GILLES - management from #1 DVT PROPHYLAXIS - SQ Heparin was given CODE STATUS Full Code DISPO d/c to [facility] when accepted ff up with Dr. Syed Valdivia (Primary Care Physician) on Saturday February 25, 2017 at 10:55am. Current Inpatient Medications: Current Inpatient Medications Medications (Trade) Dose Ordered Sig/Bj Route Start Time Stop Time Status Last Admin Dose Admin Heparin Sodium (Porcine) (Heparin Sq 5000 Unit/0.5ml) 5,000 unit Q8 SQ 02/13/17 22:00 03/15/17 21:59 02/19/17 06:20 5,000 UNIT Acetaminophen (Tylenol Tab) 650 mg Q4H PRN PO 02/13/17 16:15 03/15/17 16:14 02/15/17 02:23 650 MG Ondansetron HCl (Zofran Inj) 4 mg Q6H PRN IV 02/13/17 16:15 03/15/17 16:14 Insulin Aspart (novoLOG ASPART) SLIDING SCALE If C... ACHS SC 02/13/17 21:00 03/15/17 20:59 02/19/17 07:43 11 UNITS Glucose (Glucose 40% Gel) 15-30 GRAMS 15 GRAMS... UD PRN PO 02/13/17 17:00 03/15/17 16:59 Glucose (Glucose Chew Tab) 4-8 Tablets 4 Tabl... UD PRN PO 02/13/17 17:00 03/15/17 16:59 Dextrose (Dextrose 50% 50ML Syringe) 25-50ML OF 50% DW IV FOR... UD PRN IV 02/13/17 17:00 03/15/17 16:59 02/15/17 18:31 50 ML Glucagon (Glucagon Inj) 1 mg UD PRN SQ 02/13/17 17:00 03/15/17 16:59 Miscellaneous Information (Consult Glycemic Management Pharmacy) 1 ea UD PRN N/A 02/13/17 18:08 03/15/17 18:07 Aspirin (Ecotrin Tab) 81 mg DAILY PO 02/14/17 09:00 03/16/17 08:59 02/19/17 07:44 81 MG Finasteride (Proscar Tab) 5 mg QAM PO 02/14/17 09:00 03/16/17 08:59 02/19/17 07:45 5 MG Folic Acid (Folvite Tab) 1 mg DAILY PO 02/14/17 09:00 03/16/17 08:59 02/19/17 07:45 1 MG Magnesium Oxide (Mag-Ox Tab) 400 mg DAILY PO 02/14/17 09:00 03/16/17 08:59 02/19/17 07:45 400 MG Metoprolol Tartrate (Lopressor Tab) 12.5 mg BID PO 02/13/17 21:00 03/15/17 20:59 02/19/17 07:45 12.5 MG Multivitamins (Multivitamin Tab) 1 tab DAILY PO 02/14/17 09:00 03/16/17 08:59 02/19/17 07:46 1 TAB Nystatin (Mycostatin Powder) 1 appln TID EXT 02/13/17 21:00 03/15/17 20:59 02/19/17 07:44 1 APPLN Nystatin/ Triamcinolone Acetonide (Mycogen II Crm) 1 appln BID EXT 02/13/17 21:00 03/15/17 20:59 02/19/17 07:44 1 APPLN Simvastatin (Zocor Tab) 40 mg HS PO 02/13/17 21:00 03/15/17 20:59 02/18/17 21:03 40 MG Tamsulosin HCl (Flomax Cap) 0.4 mg HS PO 02/13/17 21:00 03/15/17 20:59 02/18/17 21:04 0.4 MG Lactobacillus Acidophilus (Floranex Tab) 4 tab DAILY PO 02/14/17 09:00 03/16/17 08:59 02/19/17 07:45 4 TAB Pantoprazole Sodium (Protonix Tab) 40 mg QAM PO 02/14/17 09:00 03/16/17 08:59 02/19/17 07:46 40 MG Modafinil (proVIGIL TAB) 100 mg QAM PO 02/15/17 09:00 03/17/17 08:59 02/19/17 11:48 100 MG Gabapentin (Neurontin Cap) 300 mg BID PO 02/16/17 21:00 03/18/17 20:59 02/19/17 07:44 300 MG Ioversol (Optiray 320) 100 ml UD PRN IV 02/16/17 12:15 02/20/17 12:14 Furosemide (Lasix Tab) 40 mg BID17 PO 02/17/17 09:00 03/19/17 08:59 02/19/17 07:44 40 MG Insulin Glargine (Lantus Solostar Pen) 18 units 02/19/17@2100 SC 02/19/17 21:00 02/19/17 21:01 Insulin Glargine (Lantus Solostar Pen) 25 units HS SC 02/20/17 17:00 03/22/17 16:59
[2017-02-19] MEDS ORDERED: LSX40 PO (13:04)
[2017-02-19] MEDS ORDERED: MODA1TAB5 PO (13:04)
[2017-02-19] MEDS ORDERED: NRN300 PO (13:04)
[2017-02-19] MEDS ORDERED: NVLGIPEN SC (13:04)
--- NOTE | 2017-02-19 13:14 | Discharge Instructions ---
Discharge Instructions Date of Service Feb 19, 2017. Admission Reason for Admission: Altered Mental Status Discharge Discharge Diagnosis / Problem: ALTERED MENTAL STATUS, LIKELY FROM CHRONIC HYPOXIA/HYPERCARBIA, MEDICATIONS Discharge Goals Goal(s): Diagnostic testing, Therapeutic intervention Activity Recommendations Activity Level: Assistance Required (FALL PRECAUTIONS PLEASE) Therapies: Physical Therapy, Occupational Therapy . Additional Information Patient informed of condition: Yes Advance Directives: No (UNKNOWN) DNR: No (PATIENT IS A FULL CODE) Level of Care: Skilled Communicable Disease: No Prognosis: Improving Oxygen at (LPM): CPAP WHILE ASLEEP INCLUDING NAPS Osorio Catheter: Yes (CHRONIC, FROM BPH) Instructions / Follow-Up Instructions / Follow-Up PLEASE MONITOR MENTAL STATUS CLOSELY. HAS EPISODES OF CONFUSION. NO BENZODIAZEPINES, NARCOTICS, PSYCHOGENIC MEDICATIONS. ALWAYS ENCOURAGE TO USE CPAP WHILE ASLEEP- INCLUDING NAPPING. MONITOR VOLUME STATUS CLOSELY- HAS CHF DIASTOLIC TYPE AND ADJUST LASIX ACCORDINGLY. FLUID RESTRICTION 2000ML/DAY. FALL PRECAUTIONS PLEASE. MONITOR BSG'S CLOSELY. FOLLOW UP WITH PRIMARY CARE PHYSICIAN DR. KRISHNA DESAI ON Saturday02/25/17 AT 8:45AM. PLEASE REFER TO ACCOMPANYING HOSPITAL DISCHARGE SUMMARY FOR FURTHER DETAILS. Current Hospital Diet Patient's current hospital diet: Diabetes Type 2 Diet Discharge Diet Recommended Diet: AHA Diet (Heart Healthy), Diabetes Type 2 Diet Fluid Restriction: 2000 ml (8 cups) Procedures Procedures Performed: MRI BRAIN, CT HEAD, CAROTID ULTRASOUND Pending Studies Studies pending at discharge: no Physician Orders On Transfer Special Precautions: PLEASE MONITOR MENTAL STATUS CLOSELY. HAS EPISODES OF CONFUSION. NO BENZODIAZEPINES, NARCOTICS, PSYCHOGENIC MEDICATIONS. ALWAYS ENCOURAGE TO USE CPAP WHILE ASLEEP- INCLUDING NAPPING. MONITOR VOLUME STATUS CLOSELY- HAS CHF DIASTOLIC TYPE AND ADJUST LASIX ACCORDINGLY. FLUID RESTRICTION 2000ML/DAY. FALL PRECAUTIONS PLEASE. MONITOR BSG'S CLOSELY. FOLLOW UP WITH PRIMARY CARE PHYSICIAN DR. KRISHNA DESAI ON Saturday02/25/17 AT 8:45AM. PLEASE REFER TO ACCOMPANYING HOSPITAL DISCHARGE SUMMARY FOR FURTHER DETAILS. Laboratory Results Hemoglobin A1c Test 02/04/17 05:09 Range/Units Estimated Average Glucose 243 mg/dl Hemoglobin A1c 10.1 H 4.5-5.6 % Medical Emergencies . Who to Call and When: Medical Emergencies: If at any time you feel your situation is an emergency, please call 911 immediately. . Non-Emergent Contact Non-Emergency issues call your: Primary Care Provider Call Non-Emergent contact if: you have a fever, you have any medication questions . . "Provider Documentation" section prepared by Fer Beltran. . Core Measure Problem Core Measures: None
--- NOTE | 2017-02-19 13:21 | Discharge Summary ---
Discharge Summary Date of Service Feb 19, 2017. Discharge Summary Admission Date: Feb 13, 2017 at 16:15 Discharge Date: Feb 20, 2017 Discharge Disposition: senior care facility Principal Diagnosis: ALTERED MENTAL STATUS - possibly multifactorial, most likely from chronic hypoxia/hypercarbia, medications Secondary Diagnoses/Problems: Please refer to hospital course below. Procedures: Brain MRI WITH AND WITHOUT CONTRAST HISTORY: Mental status change. TECHNIQUE: Multiplanar multisequence MRI of the brain was performed both before and after the intravenous administration of contrast. COMPARISON STUDY: Head CT 02/13/2017. FINDINGS: Motion artifact. There is no mass, hematoma, midline shift, or acute infarct. The paranasal sinuses are clear. The mastoid air cells are clear. The ventricles and sulci demonstrate mild age-related involutional changes. Scattered foci of T2 hyperintensity seen within the periventricular and subcortical white matter are nonspecific but suggestive of mild microvascular ischemic changes. The major vascular flow voids at the skull base are well-maintained. IMPRESSION: Motion artifact. No definite acute intracranial abnormality ULTRASOUND OF THE CAROTID ARTERIES CLINICAL HISTORY: Change in mental status. COMPARISON STUDY: Carotid artery ultrasound dated 02/15/2017. TECHNIQUE: Real-time, grayscale, and color Doppler sonography of the carotid arteries is performed. Images are reviewed in the transverse and longitudinal planes. Examination is degraded by lack of patient cooperation. FINDINGS: The patient declined blood pressure assessment. The carotid arteries are patent bilaterally and demonstrate antegrade flow. There is mild atherosclerotic plaque identified. Normal doppler arterial waveforms are seen throughout. Velocity measurements are listed below. Common carotid peak systolic velocity (cm/sec): RIGHT: 74 LEFT: 42 ICA proximal peak systolic velocity (cm/sec): RIGHT: 66 LEFT: 59 ICA mid peak systolic velocity (cm/sec): RIGHT: 66 LEFT: 70 ICA distal peak systolic velocity (cm/sec): RIGHT: 60 LEFT: 103 ICA/CC peak systolic ratio: RIGHT: 0.9 LEFT: 1.1 Antegrade flow was shown in the vertebral arteries. The external carotid arteries are patent. IMPRESSION: 1. There is no sonographic evidence of hemodynamically significant stenosis in the right or left carotid arterial system. 2. Antegrade flow is shown in the vertebral arteries. Consultations: Neurologist Dr. Lynn Pending Studies/Follow-Up: PLEASE MONITOR MENTAL STATUS CLOSELY. HAS EPISODES OF CONFUSION. NO BENZODIAZEPINES, NARCOTICS, PSYCHOGENIC MEDICATIONS. ALWAYS ENCOURAGE TO USE CPAP WHILE ASLEEP- INCLUDING NAPPING. MONITOR VOLUME STATUS CLOSELY- HAS CHF DIASTOLIC TYPE AND ADJUST LASIX ACCORDINGLY. FLUID RESTRICTION 2000ML/DAY. FALL PRECAUTIONS PLEASE. MONITOR BSG'S CLOSELY. FOLLOW UP WITH PRIMARY CARE PHYSICIAN DR. KRISHNA DESAI ON Saturday02/25/17 AT 8:45AM. PLEASE REFER TO HOSPITAL COURSE BELOW FOR FURTHER DETAILS. Medication Reconciliation New Medications: Furosemide (Furosemide) 40 Mg Tab 40 MG PO BID17 for 30 Days, #60 TAB Gabapentin (Gabapentin) 300 Mg Cap 300 MG PO BID for 15 Days, #30 CAP 0 Refills Insulin Aspart (Novolog Flexpen) 100 Units/Ml Inj 0 UNITS SC ACHS for 30 Days `BSG'S ACHS IF EATING OR Q 6 HRS IF NPO `GOAL RANGE = Low 120 MG/DL High 150 MG/DL Correction Factor = 15 MG/DL/UNIT INS:CHO RATIO= 1 UNIT PER 5 GRAM CHO CONSUMED Continued Medications: Aspirin (Aspirin Ec) 81 Mg Tab 81 MG PO DAILY Finasteride (Proscar) 5 Mg Tab 5 MG PO QAM, 0 Refills Folic Acid (Folvite) 1 Mg Tab 1 MG PO DAILY, TAB Insulin Glargine (Lantus Solostar) 100 Unit/Ml Inj 20 UNITS SC QPM for 30 Days do not give if patient's blood sugar is less than 110 Magnesium Oxide (Mag-Ox) 400 Mg Tab 400 MG PO DAILY for 7 Days, #7 TAB Metolazone (Zaroxolyn) 5 Mg Tab 5 MG PO 2XWK 1/2 hour prior to AM dose of Furosemide. PATIENT TAKES ES AND TH Metoprolol Tartrate (Lopressor) (Lopressor) 25 Mg Tab 12.5 MG PO BID, TAB Modafinil (Provigil) 100 Mg Tab 100 MG PO QAM for 15 Days (This prescription has been renewed) Multivitamin (Multivitamin) Tab 1 TAB PO DAILY, TAB Nystatin (Topical) (Nyata) 100,000 Unit/Gm Pow 1 APPL TOP TID apply topically within skin folds as directed three times daily Nystatin-Triamcinolone (Nystatin/Triamcinolone) 1 Cre Cre 1 APPLN TOP BID, #15 GM 1 Refill Apply to groin and perineal area twice daily. Omeprazole (Prilosec) 20 Mg Capcr 20 MG PO QAM Potassium Ext Rel (Klor-Con) 20 Meq Tabcr 40 MEQ PO BID Simvastatin (Zocor) 40 Mg Tab 40 MG PO HS Tamsulosin HCl (Tamsulosin HCl) 0.4 Mg Cap 1 CAP PO HS Venlafaxine Hcl (Effexor) 75 Mg Tab 75 MG PO BID Discontinued Medications: Furosemide (Furosemide) 40 Mg Tab 2 TAB PO BID Gabapentin (Neurontin) 300 Mg Cap 600 MG PO QID, CAP Insulin Aspart (Novolog Penfill) 100 Unit/Ml Inj 1 UNIT SC AC PRN for hyperglycemia for 30 Days check patient's blood glucose before meals (3x a day) and follow sliding scale: For Blood Sugar 180-220, give 2 units Insulin Aspart For Blood Sugar 221-260, give 4 units Insulin Aspart For Blood Sugar 261-300, give 6 units Insulin Aspart For Blood Sugar more than 300, give 8 units of Insulin Aspart and call your Primary Care Physician immediately Lactobacillus-Inulin (Culturelle) 1 Cap Cap 1 CAP PO DAILY Admission Information HPI (per Admitting provider): 76 year old male who presents to the ED with confusion. Patient was recently admitted to [facility] 02/03 - 02/09 and was treated for altered mental status, UTI, wound infection, and CHF. On admission, patient had altered mental status and acute on chronic hypercapnic respiratory failure requiring intubation. He was successfully extubated and used PRN BiPap through the rest of his stay. He was also started on Provigil to help with day time sleepiness. However patient has not been taking this medication since discharge because it was not covered by his insurance. He was also treated for acute on chronic diastolic CHF with diuresis. UTI and wounds grew enterococcus and previous right great toe wound wound grew MRSA and was treated with Vanco and subsequently Augmentin and Doxy to finish the course. Patient is currently unable to provide much history. I spoke to his who reports he has been extremely weak since being home. He also has been getting more confused and sleepy. She reports that he normally can stand and transfer however he has had trouble doing that. He fell to his knees yesterday while transferring out of his chair. No syncopal events. She reports his foot wounds have been healing well and there has not been any drainage. She denies any fevers. His blood sugars have been running in this high 100s-200s. She denies any other symptoms. In the ED, patient's work up is unremarkable. Physical Exam (per Admitting): General Appearance: WD/WN, no apparent distress Head: normocephalic, atraumatic Eyes: normal inspection ENT: hearing grossly normal, + pertinent finding (dry mucous membranes) Neck: supple, no JVD Respiratory/Chest: lungs clear, no respiratory distress Cardiovascular: regular rate, rhythm, + pertinent finding (trace edema BLLE) Abdomen/GI: normal bowel sounds, non tender, soft Extremities/Musculoskelatal: normal inspection, no calf tenderness Neurologic/Psych: + pertinent finding (patient is drowsy however arouses to loud verbal stimuli but falls back to sleep quickly; when he awakens he initially has some myoclonic jerking; moving all extremities; no gross focal deficits noted) Skin: + pertinent finding (multiple wounds noted: right great toe ulcer with eschar, right 2nd toe dried ulcer, left 2nd toe dorsal and plantar ulcers noted with eschar; left wheeler dried ulcers with some eschar; no significant surrounding erythema or drainage noted to any of the wounds) Hospital Course 75 year old male with history of CHF Diastolic Type, DM on Insulin, Hypertension , Obstructive Sleep Apnea , non adherent with CPAP, Chronic Hunter Cath due to BPH, other problems noted below presenting with altered mental status. ALTERED MENTAL STATUS/ENCEPHALOPATHY - possibly multifactorial, most likely from chronic hypoxia/hypercarbia, medications - patient readmitted with increasing weakness and altered mental status x 4 days ; admitted few days prior due to altered mental status, CHF exacerbation - likely from GILLES and non adherence to CPAP daily ABGs showing pH 7.4, compensated respiratory acidosis when using Bipap as inpatient more consistently, mental status improves and return to baseline resumed Provigil daily that was started last admission encouraged patient to use CPAP while sleeping more consistently to avoid confusion and chronic hypoxia, and he verbalized agreement and understanding - from medications? Gabapentin dose decreased from 600 QID to 300mg BID - underlying seizure disorder unlikely EEG: non specific --CVA ruled out MRI brain: no acute process, microvascular ischemic changes CT head: limited, no acute findings - Infection ruled out no signs of active infection at this time cultures negative - ammonia normal -- mental status back to baseline overall for the past few days now encourage to use CPAP daily with naps and at HS no benzodiazepenes or other psychogenic medications monitor for confusion/delirium episodes MILD ACUTE RENAL FAILURE - baseline creat runs in the low 1's - up to 1.5 on admission - likely prerenal - resolved - given IV fluids - resumed Lasix BPH WITH CHRONIC HUNTER - completed antibiotics last week for UTI - change Hunter accordingly DM - hgb a1c 10.1 01/2017 usually on Insulin Aspart TID and Lantus at home - on Lantus and ISS as inpatient continue for now monitor BSGs HTN - BP controlled overall, continue metoprolol CHRONIC DIASTOLIC CHF - appeared volume depleted on admission - IV fluids given initially - resumed Lasix 40mg po daily monitor volume status daily GILLES - management from #1 DVT PROPHYLAXIS - SQ Heparin was given CODE STATUS Full Code DISPO d/c to [facility] when accepted ff up with Dr. Krishna Desai (Primary Care Physician) on Saturday February 25, 2017 at 10:55am. Total time spent on discharge = 50 This includes examination of the patient, discharge planning, medication reconciliation, and communication with other providers. Discharge Instructions Discharge Instructions Date of Service Feb 19, 2017. Admission Reason for Admission: Altered Mental Status Discharge Discharge Diagnosis / Problem: ALTERED MENTAL STATUS, LIKELY FROM CHRONIC HYPOXIA/HYPERCARBIA, MEDICATIONS Discharge Goals Goal(s): Diagnostic testing, Therapeutic intervention Activity Recommendations Activity Level: Assistance Required (FALL PRECAUTIONS PLEASE) Therapies: Physical Therapy, Occupational Therapy . Additional Information Patient informed of condition: Yes Advance Directives: No (UNKNOWN) DNR: No (PATIENT IS A FULL CODE) Level of Care: Skilled Communicable Disease: No Prognosis: Improving Oxygen at (LPM): CPAP WHILE ASLEEP INCLUDING NAPS Hunter Catheter: Yes (CHRONIC, FROM BPH) Instructions / Follow-Up Instructions / Follow-Up PLEASE MONITOR MENTAL STATUS CLOSELY. HAS EPISODES OF CONFUSION. NO BENZODIAZEPINES, NARCOTICS, PSYCHOGENIC MEDICATIONS. ALWAYS ENCOURAGE TO USE CPAP WHILE ASLEEP- INCLUDING NAPPING. MONITOR VOLUME STATUS CLOSELY- HAS CHF DIASTOLIC TYPE AND ADJUST LASIX ACCORDINGLY. FLUID RESTRICTION 2000ML/DAY. FALL PRECAUTIONS PLEASE. MONITOR BSG'S CLOSELY. FOLLOW UP WITH PRIMARY CARE PHYSICIAN DR. KRISHNA DESAI ON Saturday02/25/17 AT 8:45AM. PLEASE REFER TO ACCOMPANYING HOSPITAL DISCHARGE SUMMARY FOR FURTHER DETAILS. Current Hospital Diet Patient's current hospital diet: Diabetes Type 2 Diet Discharge Diet Recommended Diet: AHA Diet (Heart Healthy), Diabetes Type 2 Diet Fluid Restriction: 2000 ml (8 cups) Procedures Procedures Performed: MRI BRAIN, CT HEAD, CAROTID ULTRASOUND Pending Studies Studies pending at discharge: no Physician Orders On Transfer Special Precautions: PLEASE MONITOR MENTAL STATUS CLOSELY. HAS EPISODES OF CONFUSION. NO BENZODIAZEPINES, NARCOTICS, PSYCHOGENIC MEDICATIONS. ALWAYS ENCOURAGE TO USE CPAP WHILE ASLEEP- INCLUDING NAPPING. MONITOR VOLUME STATUS CLOSELY- HAS CHF DIASTOLIC TYPE AND ADJUST LASIX ACCORDINGLY. FLUID RESTRICTION 2000ML/DAY. FALL PRECAUTIONS PLEASE. MONITOR BSG'S CLOSELY. FOLLOW UP WITH PRIMARY CARE PHYSICIAN DR. KRISHNA DESAI ON Saturday02/25/17 AT 8:45AM. PLEASE REFER TO ACCOMPANYING HOSPITAL DISCHARGE SUMMARY FOR FURTHER DETAILS.
--- NOTE | 2017-02-19 14:22 | Neurology Progress Notes ---
Neurology Progress Note Date of Service Feb 19, 2017. Darron Fraser is a 76 year old male who presents to the ED with confusion. He had an admission on 02/03 - 02/09 and was treated for altered mental status, UTI, wound infection, and CHF. He had altered mental status and acute on chronic hypercapnic respiratory failure requiring intubation. He was successfully extubated and used PRN BiPap through the rest of his stay. He was also started on Provigil to help with day time sleepiness but he was not taking it at home because it was not covered by insurance. He was also treated for acute on chronic diastolic CHF with diuresis. UTI and wounds grew enterococcus and previous right great toe wound wound grew MRSA and was treated with Vanco and subsequently Augmentin and Doxy to finish the course.He was getting more confused and sleepy at home. At baseline he is wheelchair bound but does transfer at home but he fell with transferring to the bed. He states he takes Ultram at home but uncertain how often he takes it. He has macular degeneration which impairs his vision greatly. He has a bad right knee and severe DM peripheral neuropathy. He is drowsy today but wakes and answers questions appropriately denies CP, SOB , abdominal pain, N, V. Objective Date Time Temp Pulse Resp B/P (MAP) Pulse Ox O2 Delivery O2 Flow Rate FiO2 02/19/17 12:08 37.0 78 20 142/82 (102) 96 Nasal Cannula 4.0 02/19/17 12:00 Room Air 02/19/17 08:00 Room Air 02/19/17 06:54 36.3 71 24 144/73 (96) 100 Nasal Cannula 4.0 02/19/17 04:00 Room Air 02/19/17 03:50 36.7 76 18 138/69 (92) 99 4.0 02/18/17 23:59 Room Air 02/18/17 23:36 37.0 83 20 147/81 (103) 99 Nasal Cannula 3.0 02/18/17 20:00 Room Air 02/18/17 19:47 36.7 94 21 148/78 (101) 93 Nasal Cannula 3.0 02/18/17 16:00 Room Air 02/18/17 15:15 36.9 94 20 156/72 (100) 93 Room Air Last 24 Hours Test 02/18/17 16:12 02/18/17 20:27 02/19/17 06:10 02/19/17 06:20 Bedside Glucose 185 mg/dl 202 mg/dl 198 mg/dl White Blood Count 7.84 K/uL Red Blood Count 4.89 M/uL Hemoglobin 10.8 g/dL Hematocrit 36.7 % Mean Corpuscular Volume 75.1 fL Mean Corpuscular Hemoglobin 22.1 pg Mean Corpuscular Hemoglobin Concent 29.4 g/dl RDW Standard Deviation 48.7 fL RDW Coefficient of Variation 17.7 % Platelet Count 256 K/uL Mean Platelet Volume 10.5 fL Test 02/19/17 11:26 Bedside Glucose 234 mg/dl Imaging: carotid repeated -There is no sonographic evidence of hemodynamically significant stenosis in the right or left carotid arterial system. Antegrade flow is shown in the vertebral arteries. MRI brain with and without- Motion artifact. No definite acute intracranial abnormality Exam: gen: alert with voice and stimulation lungs course BS CV RRR neuro: knows [facility], 2017 bilaterally UE hand content architect 5/5 (frozen shoulder right) no pronator drift moves legs spontaneously Current Inpatient Medications Medications (Trade) Dose Ordered Sig/Bj Route Start Time Stop Time Status Last Admin Dose Admin Heparin Sodium (Porcine) (Heparin Sq 5000 Unit/0.5ml) 5,000 unit Q8 SQ 02/13/17 22:00 03/15/17 21:59 02/19/17 06:20 5,000 UNIT Acetaminophen (Tylenol Tab) 650 mg Q4H PRN PO 02/13/17 16:15 03/15/17 16:14 02/15/17 02:23 650 MG Ondansetron HCl (Zofran Inj) 4 mg Q6H PRN IV 02/13/17 16:15 03/15/17 16:14 Insulin Aspart (novoLOG ASPART) SLIDING SCALE If C... ACHS SC 02/13/17 21:00 03/15/17 20:59 02/19/17 07:43 11 UNITS Glucose (Glucose 40% Gel) 15-30 GRAMS 15 GRAMS... UD PRN PO 02/13/17 17:00 03/15/17 16:59 Glucose (Glucose Chew Tab) 4-8 Tablets 4 Tabl... UD PRN PO 02/13/17 17:00 03/15/17 16:59 Dextrose (Dextrose 50% 50ML Syringe) 25-50ML OF 50% DW IV FOR... UD PRN IV 02/13/17 17:00 03/15/17 16:59 02/15/17 18:31 50 ML Glucagon (Glucagon Inj) 1 mg UD PRN SQ 02/13/17 17:00 03/15/17 16:59 Miscellaneous Information (Consult Glycemic Management Pharmacy) 1 ea UD PRN N/A 02/13/17 18:08 03/15/17 18:07 Aspirin (Ecotrin Tab) 81 mg DAILY PO 02/14/17 09:00 03/16/17 08:59 02/19/17 07:44 81 MG Finasteride (Proscar Tab) 5 mg QAM PO 02/14/17 09:00 03/16/17 08:59 02/19/17 07:45 5 MG Folic Acid (Folvite Tab) 1 mg DAILY PO 02/14/17 09:00 03/16/17 08:59 02/19/17 07:45 1 MG Magnesium Oxide (Mag-Ox Tab) 400 mg DAILY PO 02/14/17 09:00 03/16/17 08:59 02/19/17 07:45 400 MG Metoprolol Tartrate (Lopressor Tab) 12.5 mg BID PO 02/13/17 21:00 03/15/17 20:59 02/19/17 07:45 12.5 MG Multivitamins (Multivitamin Tab) 1 tab DAILY PO 02/14/17 09:00 03/16/17 08:59 02/19/17 07:46 1 TAB Nystatin (Mycostatin Powder) 1 appln TID EXT 02/13/17 21:00 03/15/17 20:59 02/19/17 07:44 1 APPLN Nystatin/ Triamcinolone Acetonide (Mycogen II Crm) 1 appln BID EXT 02/13/17 21:00 03/15/17 20:59 02/19/17 07:44 1 APPLN Simvastatin (Zocor Tab) 40 mg HS PO 02/13/17 21:00 03/15/17 20:59 02/18/17 21:03 40 MG Tamsulosin HCl (Flomax Cap) 0.4 mg HS PO 02/13/17 21:00 03/15/17 20:59 02/18/17 21:04 0.4 MG Lactobacillus Acidophilus (Floranex Tab) 4 tab DAILY PO 02/14/17 09:00 03/16/17 08:59 02/19/17 07:45 4 TAB Pantoprazole Sodium (Protonix Tab) 40 mg QAM PO 02/14/17 09:00 03/16/17 08:59 02/19/17 07:46 40 MG Modafinil (proVIGIL TAB) 100 mg QAM PO 02/15/17 09:00 03/17/17 08:59 02/19/17 11:48 100 MG Gabapentin (Neurontin Cap) 300 mg BID PO 02/16/17 21:00 03/18/17 20:59 02/19/17 07:44 300 MG Ioversol (Optiray 320) 100 ml UD PRN IV 02/16/17 12:15 02/20/17 12:14 Furosemide (Lasix Tab) 40 mg BID17 PO 02/17/17 09:00 03/19/17 08:59 02/19/17 07:44 40 MG Insulin Glargine (Lantus Solostar Pen) 18 units 02/19/17@2100 SC 02/19/17 21:00 02/19/17 21:01 Insulin Glargine (Lantus Solostar Pen) 25 units HS SC 02/20/17 17:00 03/22/17 16:59 Venlafaxine HCl (effeXOR TAB) 75 mg BID PO 02/19/17 21:00 03/21/17 20:59 Impression 76 year old male chronic medical issues with MS change -now back to baseline Plan 1 2. MRI with and without contrast no structural abnormalities or lesions 3. PT/OT 4. ultram can cause confusion would not give for pain mgt 5. monitor for any infectious process or metabolic issues that can be corrected 6. fall risk 7. will need rehab prior to return to home- [facility] tomorrow- was confused last night and needed one on one ([facility] will accept after 24 hours off 1:1) 8. EEG no seizure focus 9. ammonia level normal range 12 10. carotid doppler no high grade stenosis I have seen and discussed above patient with Dr Seda Lynn, neurology Events of last pm noted with disorientation, calling hospital shirt operator. Pt seen and bedside.PT morbidly obese, sitting up in bed with neck in extreme flexion, O2 by nasal cannula not correctly placed, mildly sleepy, but able to alert, follow simple commands. I suspect strongly that pt waxing and waning MS is related to intermittent hypoxemia, hypercarbia. Will sign off, please reconsult if needed, DEIDRA Lynn MD
[2017-02-19] MEDS ORDERED: INSULIN GLARGINE SOLOSTAR 100 UNITS/ML 3 ML PEN SC SCH (21:00)
[2017-02-19] MEDS: TAMSULOSIN HCL 0.4 MG CAP PO SCH (21:49)
[2017-02-19] MEDS: VENLAFAXINE HCL 50 MG TAB PO SCH (21:50)
[2017-02-19] MEDS: SIMVASTATIN 40 MG TAB PO SCH (21:51)
[2017-02-20 03:48] VITALS: BP 118/62; PULSE 70; TEMP 36.8; O2SAT 97
[2017-02-20] MEDS: ACETAMINOPHEN 325 MG TAB PO PRN (03:49)
[2017-02-20] MEDS: HEPARIN SOD 5000 UNIT/0.5 ML CARP SQ SCH (06:15)
[2017-02-20 07:35] VITALS: BP 93/63; PULSE 79; TEMP 36.7; O2SAT 97
[2017-02-20] MEDS: FINASTERIDE 5 MG TAB PO SCH (07:42)
[2017-02-20] MEDS: GABAPENTIN 300 MG CAP PO SCH (07:42)
[2017-02-20] MEDS: PANTOprazole SOD 40 MG TAB PO SCH (07:42)
[2017-02-20] MEDS: MODAFINIL 100 MG TAB PO SCH (07:42)
[2017-02-20] MEDS: VENLAFAXINE HCL 50 MG TAB PO SCH (07:43)
[2017-02-20] MEDS: MAGNESIUM OXIDE 400 MG TAB PO SCH (07:44)
[2017-02-20] MEDS: METOPROLOL TARTRATE 25 MG TAB PO SCH (07:44)
[2017-02-20] MEDS: FUROSEMIDE 40 MG TAB PO SCH (07:44)
[2017-02-20] MEDS: ASPIRIN 81 MG ECTAB PO SCH (07:45)
[2017-02-20] MEDS: NYSTATIN POWDER 15GM BTL EXT SCH (07:46)
[2017-02-20] MEDS: MULTIVITAMIN TAB PO SCH (07:46)
[2017-02-20] MEDS: NYSTATIN/TRIAMCINOLONE CR 15 GM TUBE EXT SCH (07:46)
[2017-02-20] MEDS: LACTOBACILLUS ACIDOPHILUS (FLORANEX) TAB PO SCH (07:46)
[2017-02-20] MEDS: INSULIN ASPART 100 UNITS/ML 3 ML PEN SC SCH (07:51)
--- NOTE | 2017-02-20 09:53 | Progress Note ---
Medicine Progress Note Date & Time of Visit: Feb 20, 2017 at 09:53. Objective Last 8 Hrs Date Time Temp Pulse Resp B/P (MAP) Pulse Ox O2 Delivery O2 Flow Rate FiO2 02/20/17 08:00 Nasal Cannula 2.0 02/20/17 07:35 36.7 79 22 93/63 (73) 97 Nasal Cannula 2.0 02/20/17 04:00 Nasal Cannula 2.0 02/20/17 03:48 36.8 70 20 118/62 (80) 97 Nasal Cannula 2.0 Physical Exam: General-[] Eyes-[] ENT-[] Neck-[] Lungs-[] Heart-[] Abdomen-[] Extremities-[] Neuro-[] Laboratory Results: Last 24 Hours Test 02/19/17 11:26 02/19/17 16:37 02/19/17 21:33 02/20/17 06:45 Bedside Glucose 234 mg/dl 280 mg/dl 246 mg/dl 144 mg/dl Assessment & Plan Consultants: Neurologist Dr. Lynn Procedures: Brain MRI WITH AND WITHOUT CONTRAST HISTORY: Mental status change. TECHNIQUE: Multiplanar multisequence MRI of the brain was performed both before and after the intravenous administration of contrast. COMPARISON STUDY: Head CT 02/13/2017. FINDINGS: Motion artifact. There is no mass, hematoma, midline shift, or acute infarct. The paranasal sinuses are clear. The mastoid air cells are clear. The ventricles and sulci demonstrate mild age-related involutional changes. Scattered foci of T2 hyperintensity seen within the periventricular and subcortical white matter are nonspecific but suggestive of mild microvascular ischemic changes. The major vascular flow voids at the skull base are well-maintained. IMPRESSION: Motion artifact. No definite acute intracranial abnormality ULTRASOUND OF THE CAROTID ARTERIES CLINICAL HISTORY: Change in mental status. COMPARISON STUDY: Carotid artery ultrasound dated 02/15/2017. TECHNIQUE: Real-time, grayscale, and color Doppler sonography of the carotid arteries is performed. Images are reviewed in the transverse and longitudinal planes. Examination is degraded by lack of patient cooperation. FINDINGS: The patient declined blood pressure assessment. The carotid arteries are patent bilaterally and demonstrate antegrade flow. There is mild atherosclerotic plaque identified. Normal doppler arterial waveforms are seen throughout. Velocity measurements are listed below. Common carotid peak systolic velocity (cm/sec): RIGHT: 74 LEFT: 42 ICA proximal peak systolic velocity (cm/sec): RIGHT: 66 LEFT: 59 ICA mid peak systolic velocity (cm/sec): RIGHT: 66 LEFT: 70 ICA distal peak systolic velocity (cm/sec): RIGHT: 60 LEFT: 103 ICA/CC peak systolic ratio: RIGHT: 0.9 LEFT: 1.1 Antegrade flow was shown in the vertebral arteries. The external carotid arteries are patent. IMPRESSION: 1. There is no sonographic evidence of hemodynamically significant stenosis in the right or left carotid arterial system. 2. Antegrade flow is shown in the vertebral arteries. Current Inpatient Medications: Current Inpatient Medications Medications (Trade) Dose Ordered Sig/Bj Route Start Time Stop Time Status Last Admin Dose Admin Heparin Sodium (Porcine) (Heparin Sq 5000 Unit/0.5ml) 5,000 unit Q8 SQ 02/13/17 22:00 03/15/17 21:59 02/20/17 06:15 5,000 UNIT Acetaminophen (Tylenol Tab) 650 mg Q4H PRN PO 02/13/17 16:15 03/15/17 16:14 02/20/17 03:49 650 MG Ondansetron HCl (Zofran Inj) 4 mg Q6H PRN IV 02/13/17 16:15 03/15/17 16:14 Insulin Aspart (novoLOG ASPART) SLIDING SCALE If C... ACHS SC 02/13/17 21:00 03/15/17 20:59 02/20/17 07:51 13 UNITS Glucose (Glucose 40% Gel) 15-30 GRAMS 15 GRAMS... UD PRN PO 02/13/17 17:00 03/15/17 16:59 Glucose (Glucose Chew Tab) 4-8 Tablets 4 Tabl... UD PRN PO 02/13/17 17:00 03/15/17 16:59 Dextrose (Dextrose 50% 50ML Syringe) 25-50ML OF 50% DW IV FOR... UD PRN IV 02/13/17 17:00 03/15/17 16:59 02/15/17 18:31 50 ML Glucagon (Glucagon Inj) 1 mg UD PRN SQ 02/13/17 17:00 03/15/17 16:59 Miscellaneous Information (Consult Glycemic Management Pharmacy) 1 ea UD PRN N/A 02/13/17 18:08 03/15/17 18:07 Aspirin (Ecotrin Tab) 81 mg DAILY PO 02/14/17 09:00 03/16/17 08:59 02/20/17 07:45 81 MG Finasteride (Proscar Tab) 5 mg QAM PO 02/14/17 09:00 03/16/17 08:59 02/20/17 07:42 5 MG Folic Acid (Folvite Tab) 1 mg DAILY PO 02/14/17 09:00 03/16/17 08:59 02/20/17 07:44 1 MG Magnesium Oxide (Mag-Ox Tab) 400 mg DAILY PO 02/14/17 09:00 03/16/17 08:59 02/20/17 07:44 400 MG Metoprolol Tartrate (Lopressor Tab) 12.5 mg BID PO 02/13/17 21:00 03/15/17 20:59 02/20/17 07:44 12.5 MG Multivitamins (Multivitamin Tab) 1 tab DAILY PO 02/14/17 09:00 03/16/17 08:59 02/20/17 07:46 1 TAB Nystatin (Mycostatin Powder) 1 appln TID EXT 02/13/17 21:00 03/15/17 20:59 02/20/17 07:46 1 APPLN Nystatin/ Triamcinolone Acetonide (Mycogen II Crm) 1 appln BID EXT 02/13/17 21:00 03/15/17 20:59 02/20/17 07:46 1 APPLN Simvastatin (Zocor Tab) 40 mg HS PO 02/13/17 21:00 03/15/17 20:59 02/19/17 21:51 40 MG Tamsulosin HCl (Flomax Cap) 0.4 mg HS PO 02/13/17 21:00 03/15/17 20:59 02/19/17 21:49 0.4 MG Lactobacillus Acidophilus (Floranex Tab) 4 tab DAILY PO 02/14/17 09:00 03/16/17 08:59 02/20/17 07:46 4 TAB Pantoprazole Sodium (Protonix Tab) 40 mg QAM PO 02/14/17 09:00 03/16/17 08:59 02/20/17 07:42 40 MG Modafinil (proVIGIL TAB) 100 mg QAM PO 02/15/17 09:00 11/5/17 08:59 02/20/17 07:42 100 MG Gabapentin (Neurontin Cap) 300 mg BID PO 02/16/17 21:00 03/18/17 20:59 02/20/17 07:42 300 MG Ioversol (Optiray 320) 100 ml UD PRN IV 02/16/17 12:15 02/20/17 12:14 Furosemide (Lasix Tab) 40 mg BID17 PO 02/17/17 09:00 03/19/17 08:59 02/20/17 07:44 40 MG Insulin Glargine (Lantus Solostar Pen) 25 units HS SC 02/20/17 17:00 03/22/17 16:59 Venlafaxine HCl (effeXOR TAB) 75 mg BID PO 02/19/17 21:00 03/21/17 20:59 02/20/17 07:43 75 MG
[2017-02-20 10:07] VITALS: BP 93/63; PULSE 79; TEMP 36.7; O2SAT 97
--- NOTE | 2017-02-20 11:02 | Pharmacy Progress Note ---
Glycemic Control Progress Note Date of Service Feb 20, 2017. Scope Glycemic Pharmacist consulted for glycemic control to write orders per [facility] inpatient glycemic control protocol. Objective Accuchecks BSG (last 24hrs): Test 02/19/17 11:26 02/19/17 16:37 02/19/17 21:33 02/20/17 06:45 Bedside Glucose 234 mg/dl (70-99) 280 mg/dl (70-99) 246 mg/dl (70-99) 144 mg/dl (70-99) HbA1c: 10.1% on 02/04/17 Recent Pertinent Medications The patient is currently receiving: * Basal insulin: Lantus 25 units every 24 hours * Correctional Insulin: Novolog Correction per scale ACHS Goal Range: Low 120 mg/dL - High 150 mg/dL Correction Factor: 15 mg/dL/unit * Prandial insulin: Per carb ratio of 1 unit per 5 grams CHO consumed Outpatient Anti-Diabetic Meds Lantus 20 units SQ QPM Novolog sliding scale 2-8 unit Assessment & Plan ASSESSMENT: * See progress note from 02/19/17 for more background info, in short: * Pt receiving SQ basal bolus insulin regimen for hyperglycemia secondary to baseline DM (outpatient regimen on hold). * Patient is currently receiving an average of 45 units of insulin per day * BSGs ranging 198 - 280 mg/dl over the past 24hrs * Changes needed to insulin regimen: * AM Fasting BSG = 144 mg/dl. This is in goal range for patient based on inpatient targets and co-morbidities. * Post-prandial BSGs were elevated, most likely due to possible missed carb coverage (dinner was 50% consumed, but carb coverage was not administered/ next bsg was elevated at 246). Continue current dose and monitoring. * Total daily dose = 45 units * Additional notes / comments: Values were elevated yesterday as noted above. PLAN FOR INPATIENT GLYCEMIC CONTROL: * Changing Lantus to 25u SQ HS due to planned discharge * Continuing correction factor of 15 mg/dl/unit * Continuing carb ratio of 1 unit per 5 grams CHO consumed * Continuing Low 120 mg/dL - High 150 mg/dL RECOMMENDATIONS FOR DISCHARGE: * Increase basal insulin to Lantus 25u q HS, outpatient A1C of of 10.1 suggests previous dose of 20u is not sufficient * Continue previous outpatient dosing of Novolog * Use outpatient sliding scale of 2-8u with meals * Please note that the plan above was derived based on current level of insulin resistance and hospital stress. These recommendations are appropriate for inpatient admission only. Plan of care upon discharge will need to be reassessed to avoid potential outpatient hypo/hyperglycemia. Thank you.
[2017-02-20] MEDS ORDERED: INSULIN GLARGINE SOLOSTAR 100 UNITS/ML 3 ML PEN SC SCH (17:00)
== END 2017-02-20 12:33 | DRG 154 ==
LOC: EDBD 12:27 → C.EDA 12:27 → C.2T 16:15 → ENRESERV 17:08
PROVIDERS: ADMIT Internal Medicine; ATTEND Internal Medicine
DX: G47.33 Obstructive sleep apnea (adult) (pediatric) (principal); G92 Toxic encephalopathy; I50.32 Chronic diastolic (congestive) heart failure; N17.9 Acute kidney failure, unspecified; E87.2 Acidosis; R09.02 Hypoxemia; T42.6X5A Adverse effect of other antiepileptic and sedative-hypnotic drugs, initial encounter; N40.1 Benign prostatic hyperplasia with lower urinary tract symptoms; E11.40 Type 2 diabetes mellitus with diabetic neuropathy, unspecified; K21.9 Gastro-esophageal reflux disease without esophagitis; H54.8 Legal blindness, as defined in USA; E66.01 Morbid (severe) obesity due to excess calories; E78.5 Hyperlipidemia, unspecified; J45.909 Unspecified asthma, uncomplicated; I11.0 Hypertensive heart disease with heart failure; Z79.4 Long term (current) use of insulin; Z86.14 Personal history of Methicillin resistant Staphylococcus aureus infection; Y92.019 Unspecified place in single-family (private) house as the place of occurrence of the external cause; Z91.19 Patient's noncompliance with other medical treatment and regimen; Z87.440 Personal history of urinary (tract) infections; Z68.39 Body mass index [BMI] 39.0-39.9, adult

== ENCOUNTER → 2017-03-01 | Outpatient (CLI) | payer OTHER ==
[~2017-03-01] MED LIST changes: -FLV400 PO; +FOLI1TAB7 PO; -FRS/40 PO; -GABA-113 PO; -INSU1INJ2 SC; -LACT10CA3 PO; +LSX40 PO; -MGNO400 PO; -MULT-190 PO; +NRN300 PO; +NVLGIPEN SC; -PRV100 PO
[2017-03-01 09:44] LABS: BASO % 0.2 %; BASO ABS # 0.02 K/uL (0-0.2); EOS % 3.8 %; HEMATOCRIT 35.8 % (42-52); IG% 0.2 %; LYMPH % 33.4 %; MEAN CELL VOLUME 74.1 fL (80-100); MEAN CORPUSCULAR HEMOGLOBIN 22.2 pg (25-34); MEAN CORPUSCULAR HGB CONC 29.9 g/dl (32-36); MEAN PLATELET VOLUME 10.7 fL (7.4-10.4); MONO % 8.5 %; NEUT % 53.9 %; PLATELET COUNT 323 K/uL (130-400); RED BLOOD COUNT 4.83 M/uL (4.7-6.1); WHITE BLOOD COUNT 9.89 K/uL (4.8-10.8)
[2017-03-01 09:51] LABS: ALT/SGPT 15 U/L (12-78); BLOOD UREA NITROGEN 44 mg/dl (7-18); BUN/CREATININE RATIO 24.1 (10-20); CALCIUM 8.9 mg/dl (8.5-10.1); CARBON DIOXIDE 34 mmol/L (21-32); CHLORIDE 97 mmol/L (98-107); CREATININE 1.82 mg/dl (0.60-1.40); GLUCOSE 212 mg/dl (70-99); POTASSIUM 3.8 mmol/L (3.5-5.1); SODIUM 136 mmol/L (136-145)
[2017-03-01 09:54] LABS: ALB/GLOB RATIO 0.7 (0.9-2); ALKALINE PHOSPHATASE 88 U/L (45-117); AST/SGOT 14 U/L (15-37)
[2017-03-01 10:05] LABS: ANISOCYTOSIS PRESENT; COMPLETE YES; HYPOCHROMIA PRESENT; MICROCYTOSIS PRESENT; TOXIC GRANULATION 1+; VACUOLIZATION 1+
== END ==
LOC: C.LABCC 08:55
PROVIDERS: ATTEND Internal Medicine
DX: R41.82 Altered mental status, unspecified (principal)

== ENCOUNTER 2017-04-28 07:01 | Inpatient (IN) | payer OTHER ==
[2017-04-28] VITALS (7 sets, daily range): BP systolic 138–185; BP diastolic 63–77; PULSE 79–93; TEMP 36.8–37.1; O2SAT 94–100; Ht 177.8 cm; Wt 114.0 kg
[~2017-04-28] VITALS: Ht 177.8 cm; Wt 114.0 kg
[~2017-04-28 07:01] MED LIST changes: +ACET-1256 PO; -FOLI1TAB7 PO; +FOLI1TAB8 PO; -INSDGIPEN SC; +INSDGIPEN SQ; +NVLGI/PEN SQ; -NVLGIPEN SC; -NYST-19 TOP
--- NOTE | 2017-04-28 07:21 | EMERGENCY ROOM VISIT NOTE ---
History Report prepared by Tr: Mike Coats Under the Supervision of: Dr. Buzz Cortés M.D. First contact with patient: 07:10 Stated Complaint: SHORTNESS OF BREATH History of Present Illness The patient is a 76 year old male with a history of CHF who presents to the Emergency Room via EMS with complaints of worsening shortness of breath over the past 2 days. He says that the shortness of breath has been steady the past 2 days. He adds that he has had a dry cough, and his abdomen feels bloated. He notes that he has had a bit of trouble swallowing. He denies any fevers, chills , chest pain, sore throat, leg swelling, or leg pain. The patient states that he does not wear oxygen at home. Per the nursing staff, the patient is on Lasix , and received a breathing treatment in route. His Lasix dosing was recently reduced. The patient states that his shortness of breath is getting a bit better currently. He says that he does not have a history of smoking. Source of History: patient, nursing staff Onset: Past 2 days Position: other (global - shortness of breath) Symptom Intensity: steady Timing: worsening Associated Symptoms: + cough (dry), No fevers, No chills, No sorethroat, No chest pain Note: Associated symptoms: Abdomen feels bloated. Some trouble swallowing. Denies leg swelling, leg pain. Review of Systems See HPI for pertinent positives & negatives. A total of 10 systems reviewed and were otherwise negative. Past Medical & Surgical Medical Problems: (1) Acute on chronic diastolic CHF (congestive heart failure) (2) Anxiety (3) Asthma, cough variant (4) Benign prostatic hyperplasia (5) CHF, acute on chronic (6) Depression (7) Diabetes mellitus type 2 (8) Diabetic neuropathy (9) Diastolic heart failure (10) Dyslipidemia (11) Essential hypertension (12) Osorio catheter in place (13) Gastroesophageal reflux disease (14) Legal blindness (15) Morbid obesity (16) Nocturnal hypoxemia (17) Obesity hypoventilation syndrome (18) GILLES (obstructive sleep apnea) (19) Peripheral venous insufficiency (20) Sleep apnea (21) UTI (urinary tract infection) Surgical Problems: (1) S/P cataract surgery (2) S/P colonoscopy (3) S/p eyelid surgery (4) S/P foot surgery, left (5) S/P panniculectomy (6) S/P tonsillectomy Old medical records were reviewed. Nurse's notes were reviewed and I agree with. Family History Diabetes mellitus MOTHER BROTHER GRANDMOTHER FH: CAD (coronary artery disease) FATHER (CABG) FH: CHF (congestive heart failure) MOTHER BROTHER GI disorder Hypertension MOTHER Social History Smoking Status: Former Smoker Alcohol Use: none Marital Status: Housing Status: lives with family Current/Historical Medications Scheduled Aspirin (Aspirin Ec), 81 MG PO DAILY Finasteride (Proscar), 5 MG PO QAM Folic Acid (Folvite), 1 MG PO DAILY Furosemide (Lasix), 20 MG PO BID Gabapentin (Gabapentin), 300 MG PO BID Insulin Aspart (Novolog Flexpen), 10 UNITS SQ TIDM Insulin Glargine (Lantus Solostar), 25 UNITS SQ QPM Magnesium Oxide (Mag-Ox), 400 MG PO DAILY Metolazone (Zaroxolyn), 5 MG PO 2XWK Metoprolol Tartrate (Lopressor) (Lopressor), 12.5 MG PO BID Modafinil (Provigil), 100 MG PO QAM Multivitamin (Multivitamin), 1 TAB PO DAILY Nystatin-Triamcinolone (Nystatin/Triamcinolone), 1 APPLN TOP BID Omeprazole (Prilosec), 20 MG PO QAM Potassium Ext Rel (Klor-Con), 40 MEQ PO BID Simvastatin (Zocor), 40 MG PO QPM Tamsulosin HCl (Tamsulosin HCl), 1 CAP PO HS Venlafaxine Hcl (Effexor), 75 MG PO BID Scheduled PRN Acetaminophen (Tylenol), 1,000 MG PO Q6 PRN for Headache or Pain Allergies Coded Allergies: Hydromorphone (Verified Adverse Reaction, Severe, DELIRIUM, UNRESPONSIVENESS, 04/28/17) UNRESPONSIVENESS Oxycodone (Verified Adverse Reaction, Unknown, Trouble coming off, ) Repoted by , NOT ALLERGIC TO THEM Propoxyphene (Verified Adverse Reaction, Unknown, Trouble coming off of Darvocet., 04/28/17) Reported by Physical Exam Vital Signs Date Time Temp Pulse Resp B/P (MAP) Pulse Ox O2 Delivery O2 Flow Rate FiO2 04/28/17 09:31 77 21 193/119 100 04/28/17 09:01 77 19 178/84 99 BiPAP 04/28/17 08:56 79 99 28 04/28/17 08:31 79 21 96 04/28/17 08:30 79 18 192/91 96 04/28/17 08:27 192/91 04/28/17 08:01 79 35 100 04/28/17 07:31 81 25 97 04/28/17 07:18 92 Room Air 04/28/17 07:13 36.6 79 16 144/64 92 Room Air 04/28/17 07:08 78 04/28/17 07:06 144/64 Physical Exam General: Chronically ill-appearing older male, resting comfortably on nasal cannula. Sleepy but arousable, answering questions appropriately. Awake alert and oriented x3. HEENT: Normal cephalic atraumatic. Pupils are equal round and reactive to light. Extraocular movements are intact. Oropharynx is pink with moist mucous membranes. No swelling of the mouth lips or tongue. Neck: Supple with a midline trachea. No meningeal signs or stiffness, no JVD or bruits. No Stridor. Chest: Clear to auscultation bilaterally. There is some rhonchi in the bases. No increased work of breathing. Heart: regular rate and rhythm. Abdomen: The patient has a large pannus that has some redness and yeast. Soft and nontender, without rebound guarding or rigidity. Extremities: Patient has 1+ lower extremity edema with some mild pink discoloration of the skins bilaterally with some scabs on the skin. Spine/Back. Non tender to palpation. No CVA tenderness Skin: Good turgor without rashes. Neurologic exam: Cranial nerves two through 12 are intact. Motor and sensation are intact and symmetrical throughout. Medical Decision & Procedures ER Provider Diagnostic Interpretation: X-ray results as stated below per interpretation by me and the radiologist: CHEST ONE VIEW PORTABLE My interpretation: Cardiomegaly with congestive heart failure changes. CLINICAL HISTORY: 76 years-old Male presenting with CHEST PAIN. TECHNIQUE: Portable upright AP view of the chest was obtained. COMPARISON: 02/13/2017. FINDINGS: Image quality is limited by patient body habitus. Allowing for this, atherosclerosis of aortic arch and persistent moderate cardiomegaly. Pulmonary vascular prominence. Perihilar cuffing. Prominence of the right bethany, possibly vascular in etiology. Apparent interval increase in hazy bilateral pulmonary opacities with a basilar predominance. No large pleural effusion though small layering pleural effusions may be present. No pneumothorax. Apparent anterior dislocation of the right humeral head unchanged from prior. A bony Hill-Sachs deformity of the right humeral head is also noted. Degenerative changes of the left glenohumeral joint. Upper abdomen normal. IMPRESSION: 1. Persistent anterior dislocation of the right humeral head with a Hill-Sachs deformity. 2. Cardiomegaly with volume overload and mild pulmonary edema. This is stable to worsened from prior exam. 3. Possible small layering pleural effusions. The report will be called/faxed according to standard departmental protocol. Electronically signed by: Anant Lugo M.D. 04/28/2017 8:01 AM Dictated Date/Time: 04/28/2017 7:58 AM Laboratory Results 04/28/17 07:35 Red Blood Count 4.41, Mean Corpuscular Volume 77.1, Mean Corpuscular Hemoglobin 22.7, Mean Corpuscular Hemoglobin Concent 29.4, Mean Platelet Volume 9.6, Neutrophils (%) (Auto) 73.2, Lymphocytes (%) (Auto) 14.6, Monocytes (%) (Auto) 9.5, Eosinophils (%) (Auto) 2.4, Basophils (%) (Auto) 0.2, Neutrophils # (Auto) 6.94, Lymphocytes # (Auto) 1.38, Monocytes # (Auto) 0.90, Eosinophils # (Auto) 0.23, Basophils # (Auto) 0.02 04/28/17 07:35 Test 04/28/17 07:35 04/28/17 07:46 04/28/17 07:59 White Blood Count 9.48 K/uL (4.8-10.8) Red Blood Count 4.41 M/uL (4.7-6.1) Hemoglobin 10.0 g/dL (14.0-18.0) Hematocrit 34.0 % (42-52) Mean Corpuscular Volume 77.1 fL (80-100) Mean Corpuscular Hemoglobin 22.7 pg (25-34) Mean Corpuscular Hemoglobin Concent 29.4 g/dl (32-36) Platelet Count 317 K/uL (130-400) Mean Platelet Volume 9.6 fL (7.4-10.4) Neutrophils (%) (Auto) 73.2 % Lymphocytes (%) (Auto) 14.6 % Monocytes (%) (Auto) 9.5 % Eosinophils (%) (Auto) 2.4 % Basophils (%) (Auto) 0.2 % Neutrophils # (Auto) 6.94 K/uL (1.4-6.5) Lymphocytes # (Auto) 1.38 K/uL (1.2-3.4) Monocytes # (Auto) 0.90 K/uL (0.11-0.59) Eosinophils # (Auto) 0.23 K/uL (0-0.5) Basophils # (Auto) 0.02 K/uL (0-0.2) RDW Standard Deviation 53.0 fL (36.4-46.3) RDW Coefficient of Variation 18.9 % (11.5-14.5) Immature Granulocyte % (Auto) 0.1 % Immature Granulocyte # (Auto) 0.01 K/uL (0.00-0.02) Anion Gap 4.0 mmol/L (3-11) Est Creatinine Clear Calc Drug Dose 77.4 ml/min Estimated GFR () 71.7 Estimated GFR (Non- 61.9 BUN/Creatinine Ratio 21.5 (10-20) Calcium Level 8.4 mg/dl (8.5-10.1) Total Bilirubin 0.8 mg/dl (0.2-1) Direct Bilirubin 0.2 mg/dl (0-0.2) Aspartate Amino Transf (AST/SGOT) 20 U/L (15-37) Alanine Aminotransferase (ALT/SGPT) 16 U/L (12-78) Alkaline Phosphatase 109 U/L (45-117) Total Creatine Kinase 99 U/L (39-308) Creatine Kinase MB 4.0 ng/ml (0.5-3.6) Creatine Kinase MB Ratio 4.0 (0-3.0) Troponin I < 0.015 ng/ml (0-0.045) Pro-B-Type Natriuretic Peptide 3399 pg/ml (0-900) Total Protein 7.4 gm/dl (6.4-8.2) Albumin 3.0 gm/dl (3.4-5.0) Lipase 52 U/L (73-393) Bedside Lactic Acid Venous 0.77 mmol/L (0.90-1.70) Venous Blood pH 7.31 (7.36-7.41) Venous Blood Partial Pressure CO2 67 mmHg (38.0-50.0) Venous Blood Partial Pressure O2 38 mmHg Venous Blood HCO3 33 mmol/L Venous Blood Oxygen Saturation 67.1 % Venous Blood Base Excess 5.3 mEq/L Laboratory studies as stated above per my review. Medications Administered Medications (Trade) Dose Ordered Sig/Bj Route Start Time Stop Time Status Last Admin Dose Admin Furosemide (Lasix Inj) 40 mg NOW STAT IV 04/28/17 08:09 04/28/17 08:10 DC 04/28/17 08:28 40 MG ECG Indication: SOB/dyspnea Rate (beats per minute): 78 Rhythm: normal sinus Findings: 1st degree AV block, other (low voltage) Change: no significant change (from February 13 2017) ED Course 0710: Past medical records reviewed. The patient was evaluated in room A10, and a complete history and physical examination were performed. 0800: I reevaluated the patient and he seems comfortable. He is sleepy but arousable. 0809: Ordered Lasix Inj 40 mg IV. 0845: Upon reevaluation, the patient was resting. I turned off his oxygen, and he desaturated into the 70s, so I put him back on 2 liters of oxygen until respiratory gets here. I discussed the results and treatment plan with the patient. He verbalized agreement of the treatment plan. The patient will be evaluated for further management. 0846: I discussed the patient with Dr. Ralph Johnson neck skewer - he will evaluate the patient for further treatment. 0852: I reevaluated and updated the patient. He is a little more awake. Respiratory started him on BiPAP. Medical Decision Differentials include CHF, pneumonia, sepsis, cardiac disease, COPD, electrolyte or metabolic abnormality. This patient comes in as described above. He was placed in room A 10. He was brought in after having shortness of breath. He's had a dry cough. He may been hallucinating this morning he does seem sleepy but easily arousable. IV access established blood work was obtained including a blood sugar and EKG. He had a chest x-ray. His Lasix has been decreased recently. Chest x-ray shows findings is was CHF his EKG was unremarkable his blood work such any significant electrode or metabolic abnormalities. I did a VBG and a CO2 is in the high 60s. He seems more somnolent and light of this we placed him on BiPAP which she seemed to tolerate well on his more awake I do think he needs to be admitted for further treatment and evaluation of his respiratory failure, CHF, and hypercapnia. I have consulted Dr. Christensen who saw the patient in the ER Medication Reconcilliation Current Medication List: was personally reviewed by me Blood Pressure Screening Patient's blood pressure: Elevated blood pressure Referred to hospitalist. Consults Time Called: 0845 Consulting Physician: Dr. Ralph Johnson neck skewer Returned Call: 0846 I discussed the patient with Dr. Ralph Johnson neck skewer - he will evaluate the patient for further treatment. Impression Primary Impression: Congestive heart failure Additional Impressions: Hypoxemia Altered mental status CO2 retention Critical Care I have personally spent greater than 30 minutes of critical care time in the direct management of this patient. This includes bedside care, interpretation of diagnostic studies, and testing, discussion with consultants, patient, and family members, and other required patient management activities. This 30 minutes is in excess of all separately billable procedures. Scribe Attestation The scribe's documentation has been prepared under my direction and personally reviewed by me in its entirety. I confirm that the note above accurately reflects all work, treatment, procedures, and medical decision making performed by me. Departure Information Dispostion Being Evaluated By Hospitalist Referrals Syed Valdivia D.O. (PCP) Problem Qualifiers
[2017-04-28 07:54] LABS: BASO % 0.2 %; BASO ABS # 0.02 K/uL (0-0.2); COMPLETE YES; EOS % 2.4 %; IG% 0.1 %; LYMPH % 14.6 %; LYMPH ABS # 1.38 K/uL (1.2-3.4); MEAN CELL VOLUME 77.1 fL (80-100); MEAN CORPUSCULAR HEMOGLOBIN 22.7 pg (25-34); MEAN CORPUSCULAR HGB CONC 29.4 g/dl (32-36); MEAN PLATELET VOLUME 9.6 fL (7.4-10.4); MONO % 9.5 %; NEUT % 73.2 %; PLATELET COUNT 317 K/uL (130-400); RED BLOOD COUNT 4.41 M/uL (4.7-6.1); WHITE BLOOD COUNT 9.48 K/uL (4.8-10.8)
--- NOTE | 2017-04-28 08:02 | DIAGNOSTIC IMAGING REPORT ---
CHEST ONE VIEW PORTABLE CLINICAL HISTORY: 76 years-old Male presenting with CHEST PAIN. TECHNIQUE: Portable upright AP view of the chest was obtained. COMPARISON: 02/13/2017. FINDINGS: Image quality is limited by patient body habitus. Allowing for this, atherosclerosis of aortic arch and persistent moderate cardiomegaly. Pulmonary vascular prominence. Perihilar cuffing. Prominence of the right bethany, possibly vascular in etiology. Apparent interval increase in hazy bilateral pulmonary opacities with a basilar predominance. No large pleural effusion though small layering pleural effusions may be present. No pneumothorax. Apparent anterior dislocation of the right humeral head unchanged from prior. A bony Hill-Sachs deformity of the right humeral head is also noted. Degenerative changes of the left glenohumeral joint. Upper abdomen normal. IMPRESSION: 1. Persistent anterior dislocation of the right humeral head with a Hill-Sachs deformity. 2. Cardiomegaly with volume overload and mild pulmonary edema. This is stable to worsened from prior exam. 3. Possible small layering pleural effusions. The report will be called/faxed according to standard departmental protocol. Electronically signed by: Anant Lugo M.D. 04/28/2017 8:01 AM Dictated Date/Time: 04/28/2017 7:58 AM
[2017-04-28] MEDS ORDERED: FUROSEMIDE 40 MG/4 ML VIAL IV STA (08:09)
[2017-04-28 08:13] LABS: ALT/SGPT 16 U/L (12-78); BLOOD UREA NITROGEN 25 mg/dl (7-18); BUN/CREATININE RATIO 21.5 (10-20); CALCIUM 8.4 mg/dl (8.5-10.1); CARBON DIOXIDE 33 mmol/L (21-32); CHLORIDE 103 mmol/L (98-107); CREATININE 1.15 mg/dl (0.60-1.40); GLUCOSE 73 mg/dl (70-99); POTASSIUM 3.7 mmol/L (3.5-5.1); SODIUM 140 mmol/L (136-145)
[2017-04-28 08:17] LABS: VEN BLD GAS O2 SATURATION 67.1 %; VEN BLOOD GAS BASE EXCESS 5.3 mEq/L
[2017-04-28 08:18] LABS: ALKALINE PHOSPHATASE 109 U/L (45-117); AST/SGOT 20 U/L (15-37)
[2017-04-28] MEDS ORDERED: FURO-85 PO (10:31)
[2017-04-28] MEDS ORDERED: SIMV80TA2 PO (10:31)
[2017-04-28] MEDS ORDERED: NURSING DECISION MEDICATION ORDER SCH ×2 (11:30→13:00)
[2017-04-28] MEDS ORDERED: INSULIN ASPART 100 UNITS/ML 3 ML PEN SQ SCH (11:36)
--- NOTE | 2017-04-28 13:18 | HISTORY & PHYSICAL EXAMINATION ---
DATE OF ADMISSION: 04/28/2017 PRIMARY CARE PHYSICIAN: Dr. Syed Valdivia. CHIEF COMPLAINT: Shortness of breath, which is worse for the last 2 days. HISTORY OF PRESENT COMPLAINT: Evelio is a 76-year-old male with significant past history including diastolic heart failure, type 2 diabetes, obesity, obstructive sleep apnea on CPAP, and major depressive disorder, apparently has been complaining of more shortness of breath for the last 1 week. Apparently, his Lasix dose has been decreased recently and the shortness of breath got worsened over the last 2 days that he was brought into the Emergency Room. He denies history of any dry cough, any chest pain, any palpitation. Does not have any abdominal pain, any nausea and/or vomiting. He was a little drowsy on arrival to the Emergency Room and apparent test came back positive for CHF as far as chest x-ray. His pH level is a little bit high as well. He got a dose of Lasix and the condition was getting better. Also, he was put on BiPAP and with that he was feeling better. Given the history of CHF and ongoing symptoms, he was admitted to telemetry unit for continuation of care. PAST MEDICAL HISTORY: Significant for chronic diastolic heart failure; major depressive disorder; type 2 diabetes, on insulin; obesity; generalized anxiety disorder; hyperlipidemia; GERD; sleep apnea, on CPAP; and also history of restless leg syndrome. PAST SURGICAL HISTORY: tonsillectomy as a child, and cataract surgery. FAMILY HISTORY: Significant that brother has diabetes. Father has diabetes. Brother also has heart problems. Father did have heart disease. Father of heart disease as well . SOCIAL HISTORY: He is . He has 2 children. He is a former smoker, quit in 2004 with 30 pack-year history of smoking, does not use any alcohol, does not use any drugs and he has been reasonably ambulant. ALLERGIES: HE IS ALLERGIC TO HYDROMORPHONE, OXYCODONE AND PROPOXYPHENE. MEDICATIONS: As an outpatient, he has been on furosemide 40 mg b.i.d., metolazone 5 mg 2 times a week, Tylenol 1 gram q. 6 hourly p.r.n., aspirin 81 mg daily, finasteride 5 mg daily, folic acid 1 mg daily, gabapentin 300 mg b.i.d., NovoLog 10 units subQ 3 times daily, Lantus 25 units at night, magnesium oxide 400 mg BID, Lopressor 25 mg tablet 12.5 mg b.i.d., Provigil 100 mg q.a.m., multivitamin 1 tablet daily, nystatin as directed, omeprazole 20 mg daily, potassium 20 mEq tablet 40 b.i.d., simvastatin 10 mg tablets 20 mg at night, tamsulosin 0.4 mg at night and Effexor 75 mg tablet b.i.d. REVIEW OF SYSTEMS: Other systemic review unremarkable except those mentioned in history of present complaint. CENTRAL NERVOUS SYSTEM: No headache, no blurred vision, no murmur. EXTREMITIES: No weakness involving any side. RESPIRATORY: No chest pain or palpitation, but does have shortness of breath. No cough or any sputum. GASTROINTESTINAL: No abdominal distention, but some bloating. No nausea, no vomiting, no abdominal pain. GENITOURINARY: Denies having any problem with urine or bowel habit. MUSCULOSKELETAL: Does have minimal swelling of the legs with some redness, but no definite cellulitis and no generalized lymphadenopathy or rash. PHYSICAL EXAMINATION: GENERAL: On examination in the Emergency Room, he was on BiPAP. He was talking normally. VITAL SIGNS: Temperature 36.6, pulse normal, blood pressure 192/91, saturation 99% on RA. HEENT: Unremarkable. NECK: Supple. No JVD, no bruit. CHEST: Decreased breath sounds on both sides with minimal crackles at the bases. HEART: Regular. ABDOMEN: Distended, soft, benign bowel sounds present. EXTREMITIES: 1+ edema bilaterally, chronic skin changes with a few dry skin lesions, but no evidence of any acute cellulitis. CENTRAL NERVOUS SYSTEM: He is alert, awake, and oriented, generally weak, but no focal neuro deficit. LABORATORY DATA: Noted today, white count was 9.48, H&H 10.0/34.0, platelet was normal. Venous blood gas pH 7.37, pCO2 7.31, pO2 67 and O2 38. sodium 140, potassium 3.7, chloride 103, carbon dioxide 33, BUN 25, creatinine 1.15. His lactate was normal, calcium 8.4. LFTs normal. CK and CK-MB unremarkable. Troponin less than 0.015. BNP was elevated at 3399. Lipase normal. Chest x-ray reported old the right humeral head and cardiomegaly with volume overload and mild pulmonary edema, EKG was in sinus rhythm, rate of 78 per minute, normal axis ,nonspecific ST-T changes. ECHO in 2016 showed normal LV systolic function, concentric LVH, EF was 55%-60%, no wall motion abnormality. IMPRESSION AND PLAN: 1. [id number] diastolic heart failure. The patient will be admitted to telemetry unit. We will start with furosemide 40 mg twice daily,measure intake and output and continue with his other medications at this time. 2. Obstructive sleep apnea, on CPAP. The patient has chronically elevated CO2 level. We will continue with BiPAP and CPAP while he is in the hospital. 3. Diabetes type 2, on insulin. Continue with his current insulin doses and put him on a sliding scale coverage as well and check a hemoglobin A1c. 4. Major depression. Continue with current medications. 5. Benign prostatic hypertrophy. Continue with current medications. 6. Gastroesophageal reflux disease. Continue with PPI. 7. Hyperlipidemia. Continue with statin. 8. Deep venous thrombosis prophylaxis with subQ heparin. 9. Code status. He will be a full code. In my clinical judgment, the beneficiary meets criteria as per CMS for 2 midnights' stay in the hospital. ARACELI
[2017-04-28] MEDS ORDERED: LORAZEPAM 0.5 MG TAB PO STA (19:27)
[2017-04-28] MEDS: SIMVASTATIN 20 MG TAB PO SCH (21:26)
[2017-04-28] MEDS: METOPROLOL TARTRATE 25 MG TAB PO SCH (21:27)
[2017-04-28] MEDS: GABAPENTIN 300 MG CAP PO SCH (21:27)
[2017-04-28] MEDS: POTASSIUM CHLORIDE 20 MEQ TABCR PO SCH (21:27)
[2017-04-28] MEDS: VENLAFAXINE HCL 50 MG TAB PO SCH (21:28)
[2017-04-28] MEDS: FUROSEMIDE INJ 40 MG in SYRINGE 0 ML IV SCH (21:28)
[2017-04-28] MEDS: TAMSULOSIN HCL 0.4 MG CAP PO SCH (21:28)
[2017-04-28] MEDS: MICONAZOLE NITRATE POWDER 43 GM EXT PRN (21:29)
[2017-04-28] MEDS: NYSTATIN/TRIAMCINOLONE CR 15 GM TUBE EXT SCH (21:29)
[2017-04-28] MEDS: INSULIN ASPART 100 UNITS/ML 3 ML PEN SC SCH (21:32)
[2017-04-28] MEDS: INSULIN GLARGINE SOLOSTAR 100 UNITS/ML 3 ML PEN SQ SCH (21:33)
[2017-04-29] VITALS (11 sets, daily range): BP systolic 134–151; BP diastolic 62–81; PULSE 68–84; TEMP 36.5–37.6; O2SAT 92–97
[2017-04-29 07:45] LABS: BUN/CREATININE RATIO 18.9 (10-20); CALCIUM 8.5 mg/dl (8.5-10.1); CREATININE 1.1 mg/dl (0.60-1.40); MAGNESIUM 2.2 mg/dl (1.8-2.4); POTASSIUM 3.9 mmol/L (3.5-5.1)
[2017-04-29 07:48] LABS: HEMATOCRIT 30.9 % (42-52); MEAN CELL VOLUME 77.6 fL (80-100); MEAN CORPUSCULAR HEMOGLOBIN 22.6 pg (25-34); MEAN CORPUSCULAR HGB CONC 29.1 g/dl (32-36); MEAN PLATELET VOLUME 9.7 fL (7.4-10.4); PLATELET COUNT 315 K/uL (130-400); RED BLOOD COUNT 3.98 M/uL (4.7-6.1); WHITE BLOOD COUNT 8.17 K/uL (4.8-10.8)
[2017-04-29] MEDS: PANTOprazole SOD 40 MG TAB PO SCH (08:21)
[2017-04-29] MEDS: FINASTERIDE 5 MG TAB PO SCH (08:22)
[2017-04-29] MEDS: MAGNESIUM OXIDE 400 MG TAB PO SCH (08:22)
[2017-04-29] MEDS: MULTIVITAMIN TAB PO SCH (08:22)
[2017-04-29] MEDS: VENLAFAXINE HCL 50 MG TAB PO SCH ×2 (08:22→21:37)
[2017-04-29] MEDS: NYSTATIN/TRIAMCINOLONE CR 15 GM TUBE EXT SCH ×2 (08:23→21:38)
[2017-04-29] MEDS: METOPROLOL TARTRATE 25 MG TAB PO SCH ×2 (08:24→21:37)
[2017-04-29] MEDS: ASPIRIN 81 MG ECTAB PO SCH (08:25)
[2017-04-29] MEDS: POTASSIUM CHLORIDE 20 MEQ TABCR PO SCH ×2 (08:25→21:37)
[2017-04-29] MEDS: FUROSEMIDE INJ 40 MG in SYRINGE 0 ML IV SCH ×2 (08:26→21:38)
[2017-04-29] MEDS: GABAPENTIN 300 MG CAP PO SCH ×2 (08:26→18:25)
[2017-04-29 08:27] LABS: ESTIMATED AVERAGE GLUCOSE 180 mg/dl; HA1C FLAG Normal (Normal)
[2017-04-29] MEDS: MODAFINIL 100 MG TAB PO SCH (08:45)
[2017-04-29] MEDS: INSULIN ASPART 100 UNITS/ML 3 ML PEN SC SCH ×4 (08:51→21:40)
--- NOTE | 2017-04-29 09:30 | ECHOCARDIOGRAM REPORT ---
*NOTICE TO RECEIVING DEMOCRAT AGENCY This information is strictly Confidential and protected under [place] law. [place] law prohibits you from making any further disclosure of this information unless further disclosure is expressly permitted by the written consent of the person to whom it pertains or is authorized by law. A general authorization for the release of medical or other information is not sufficient for this purpose. Hospital accepts no responsibility if the information is made available to any other person, INCLUDING THE PATIENT. Interpretation Summary * Name: JAKE LEWIS Study Date: 04/28/2017 01:06 PM BP: 164/84 mmHg * Patient Location: C.2T\S\E221\S\1 HR: 86 * : 1940 (M/d/yyyy) Gender: Male Height: 70 in * Age: 76 yrs Ethnicity: [place] Weight: 302 lb * Ordering Physician: Filemon Christensen * Referring Physician: Self, Referred * Performed By: Jose Blake RDCS * * Reason For Study: CHF * BSA: 2.5 m2 * -- Conclusions -- * Normal LV chamber size with moderate concentric LVH. * Normal LV systolic function, EF 60-65%. * No segmental left ventricular wall motion abnormalities are noted. * Grade II diastolic dysfunction. * Aortic valve sclerosis mild, without significant aortic valvular stenosis. * Mild tricuspid regurgitation. * Pulmonary hypertension is likely present with a RVSP of 40-50 mmHg, unable to accurately assess IVC size due to patient sitting upright during exam. * Mild biatrial enlargement. Procedure Details * A complete two-dimensional transthoracic echocardiogram was performed (2D, M-mode, Doppler and color flow Doppler). * Limited views were obtained. Left Ventricle * The left ventricle is normal in size. * There is moderate concentric left ventricular hypertrophy. * Ejection Fraction = 60-65%. * Left ventricular systolic function is normal. * No segmental left ventricular wall motion abnormalities are noted. * The left ventricular wall motion is normal. Right Ventricle * The right ventricular cavity size is normal (basal dimension <4.2 cm in right ventricular apical 4-chamber view). * The right ventricular systolic function is normal as assessed by tricuspid annular plane systolic excursion (TAPSE) (normal >1.5 cm). Atria * The left atrium is mildly dilated. * The right atrium is mildly dilated. * No ASD detected; PFO is not assessed. Mitral Valve * There is mild mitral annular calcification. * There is no mitral valve stenosis. * There is no mitral regurgitation noted. Tricuspid Valve * The tricuspid valve anatomy is normal. * There is no tricuspid stenosis. * There is mild tricuspid regurgitation. Aortic Valve * The aortic valve is trileaflet. * Aortic valve sclerosis mild, without significant aortic valvular stenosis. * There is no significant aortic regurgitation. Pulmonic Valve * The pulmonary valve is not well seen, but the Doppler examination is normal without significant regurgitation or stenosis. Great Vessels * The aortic root is normal size. Pericardium/Pleural * There is no pericardial effusion. Left Ventricular Diastolic Function * Diastolic dysfunction, Grade II (pseudonormalization pattern). MMode 2D Measurements and Calculations IVSd 1.5 cm IVSs 2.0 cm LVIDd 5.3 cm LVIDs 3.9 cm LVPWd 1.4 cm LVPWs 2.1 cm IVS/LVPW 1.1 FS 25.2 % EDV(Teich) 133.5 ml ESV(Teich) 67.6 ml EF(Teich) 49.3 % EDV(cubed) 146.3 ml ESV(cubed) 61.3 ml EF(cubed) 58.1 % % IVS thick 34.4 % % LVPW thick 49.3 % LV mass(C)d 330.3 grams LV mass(C)dI 132.8 grams/m\S\2 LV mass(C)s 380.2 grams LV mass(C)sI 152.9 grams/m\S\2 SV(Teich) 65.9 ml SI(Teich) 26.5 ml/m\S\2 SV(cubed) 85.0 ml SI(cubed) 34.2 ml/m\S\2 EPSS 0.66 cm Ao root diam 3.6 cm Ao root area 10.4 cm\S\2 ACS 1.9 cm LA dimension 4.5 cm asc Aorta Diam 4.0 cm LA/Ao 1.2 LVOT diam 2.2 cm LVOT area 3.7 cm\S\2 LVAd ap4 34.2 cm\S\2 LVLd ap4 7.7 cm EDV(MOD-sp4) 122.1 ml EDV(sp4-el) 128.8 ml LVAs ap4 20.0 cm\S\2 LVLs ap4 6.9 cm ESV(MOD-sp4) 48.9 ml ESV(sp4-el) 49.4 ml EF(MOD-sp4) 59.9 % EF(sp4-el) 61.6 % LVAd ap2 33.6 cm\S\2 LVLd ap2 7.9 cm EDV(MOD-sp2) 113.6 ml EDV(sp2-el) 120.7 ml LVAs ap2 19.7 cm\S\2 LVLs ap2 7.2 cm ESV(MOD-sp2) 43.9 ml ESV(sp2-el) 45.7 ml EF(MOD-sp2) 61.4 % EF(sp2-el) 62.1 % LVLd %diff 2.8 % EDV(MOD-bp) 120.4 ml LVLs %diff 4.6 % ESV(MOD-bp) 44.7 ml EF(MOD-bp) 62.9 % SV(MOD-sp4) 73.2 ml SI(MOD-sp4) 29.4 ml/m\S\2 SV(MOD-sp2) 69.8 ml SI(MOD-sp2) 28.1 ml/m\S\2 SV(MOD-bp) 75.7 ml SI(MOD-bp) 30.4 ml/m\S\2 SV(sp4-el) 79.4 ml SI(sp4-el) 31.9 ml/m\S\2 SV(sp2-el) 75.0 ml SI(sp2-el) 30.2 ml/m\S\2 Doppler Measurements and Calculations MV E max gerry 101.4 cm/sec MV A max gerry 85.0 cm/sec MV E/A 1.2 MV dec time 0.15 sec Ao V2 max 151.7 cm/sec Ao max PG 9.2 mmHg Ao max PG (full) 4.4 mmHg ACITLIN(V,A) 2.7 cm\S\2 CAITLIN(V,D) 2.7 cm\S\2 LV V1 max PG 4.8 mmHg LV V1 max 110.0 cm/sec PA V2 max 118.6 cm/sec PA max PG 5.6 mmHg PA acc slope 480.0 cm/sec\S\2 PA acc time 0.15 sec TR max gerry 330.7 cm/sec PA pr(Accel) 10.3 mmHg
--- NOTE | 2017-04-29 10:44 | Clinical Documentation Query ---
[facility]ICAL [facility] QUERY Patient is a 76 year old male admitted for evaluation and treatment of acute on chronic diastolic CHF. Patient noted to be obese, suffer from obstructive sleep apnea on CPAP therapy. Documentation in H&P notes "the patient has chronically elevated CO2 level". Consider clarification as suggested below as clinically appropriate. In your clinical opinion is this patient being managed for: (+ ) Chronic respiratory failure with hypercapnia ( ) Not Agree ( ) Other explanation of clinical findings (Please Explain) ( ) Unable to determine (Please Define) ( ) Need to Discuss The medical record reflects the following clinical findings, treatment, and risk factors. Clinical Indicators: As above Treatment: NIPPV, lasix, I/O, daily weights, Risk Factors: Obesity, GILLES Please clarify and document your clinical opinion in the progress notes and discharge summary. Terms such as "probable", "suspected", "likely", "questionable", "possible", or "still to be ruled out" are acceptable. IF IN AGREEMENT, YOU MUST DOCUMENT ABOVE DIAGNOSTIC STATEMENT IN DAILY PROGRESS NOTES AND DISCHARGE SUMMARY. This document is not part of the patient's record. Thank You, Buzz Kemp, RN [phone]
--- NOTE | 2017-04-29 11:06 | DIAGNOSTIC IMAGING REPORT ---
CHEST ONE VIEW PORTABLE HISTORY: Congestive heart failure. Short of breath. COMPARISON: Chest 04/28/2017. FINDINGS: No pneumothorax. The heart remains moderately enlarged. Trace pleural effusions. Mild interstitial pulmonary edema has improved. Right anterior shoulder dislocation is again noted. Healing right lateral lower rib fracture. IMPRESSION: 1. Improvement in the mild interstitial pulmonary edema. 2. Healing right lower rib fracture. 3. Right anterior shoulder dislocation is again noted. Electronically signed by: Ed Turner M.D. 04/29/2017 11:05 AM Dictated Date/Time: 04/29/2017 11:04 AM
--- NOTE | 2017-04-29 14:57 | Progress Note ---
Internal Med Progress Note Date of Service: Apr 29, 2017. Provider Documentation: SUBJECTIVE: The patient was seen and examined Denies any complaints Confused at times and wants to come out of bed Requiring 1 to 1 sitter OBJECTIVE: Vital Signs-as noted below Exam: General-Minimal distress tat rest Eyes-normal ENT-normal Neck-supple Lungs-Decreased breath sound bilaterally No crackles Heart-Regular,no murmur appreciated Abdomen-Benign,no masses,bowel sound present Extremities-1 + edema bilaterally Chronic skin changes No cellulitis Neuro-AA Gets occasional drowsy with confusion Lab data as noted below. ASSESSMENT & PLAN: [id number] diastolic heart failure. BNP moderately high with CXR evidence of CHF Recent decrease in dose of Lasix Started on 40 mg IV Lasix twice daily Clinically better CXR is better ECHO::Normal LV chamber size with moderate concentric LVH. * Normal LV systolic function, EF 60-65%. * No segmental left ventricular wall motion abnormalities are noted. * Grade II diastolic dysfunction. * Aortic valve sclerosis mild, without significant aortic valvular stenosis. * Mild tricuspid regurgitation. * Pulmonary hypertension is likely present with a RVSP of 40-50 mmHg, unable to accurately assess IVC size due to patient sitting upright during exam. * Mild biatrial enlargement. Continue Current dose of Lasix for now Chronic Respiratory failure with Hypercarbia Has not been using BIPAP as advised CO2 in mildly elevated Monitor Obstructive sleep apnea, on CPAP. The patient has chronically elevated CO2 level. We will continue with BiPAP and CPAP while he is in the hospital. Can use own CPAP Diabetes type 2, on insulin. Continue with his current insulin doses Has been on a sliding scale coverage as well and check a hemoglobin A1c. Major depression. Continue with current medications. Benign prostatic hypertrophy. Continue with current medications. Gastroesophageal reflux disease. Continue with PPI. Hyperlipidemia. Continue with statin. Deep venous thrombosis prophylaxis with subQ heparin. Code status. He will be a full code. Tried to discuss with the -Failed recurrent effort Vital Signs: Date Time Temp Pulse Resp B/P (MAP) Pulse Ox O2 Delivery O2 Flow Rate FiO2 04/29/17 12:00 92 Nasal Cannula 04/29/17 11:17 36.7 68 18 149/67 (94) 92 2.0 04/29/17 08:00 93 Nasal Cannula 2.0 04/29/17 07:13 36.7 75 18 134/69 (90) 93 2.0 1218/17 05:05 36.8 81 20 137/74 (95) 94 Nasal Cannula 2.0 04/29/17 04:00 Room Air 04/29/17 00:00 Room Air 04/29/17 00:00 37.6 83 22 134/62 (86) 94 Nasal Cannula 2.0 04/28/17 20:01 36.9 93 24 185/63 (103) 94 Nasal Cannula 2.0 04/28/17 20:00 Room Air 04/28/17 16:00 97 Nasal Cannula 2.0 04/28/17 15:47 36.8 80 22 138/69 (92) 94 Nasal Cannula 3.0 Lab Results: Results Past 24 Hours Test 04/28/17 16:20 04/28/17 21:27 04/29/17 07:11 04/29/17 11:12 Range/Units Bedside Glucose 85 157 101 70-99 mg/dl White Blood Count 8.17 4.8-10.8 K/uL Red Blood Count 3.98 4.7-6.1 M/uL Hemoglobin 9.0 14.0-18.0 g/dL Hematocrit 30.9 42-52 % Mean Corpuscular Volume 77.6 80-100 fL Mean Corpuscular Hemoglobin 22.6 25-34 pg Mean Corpuscular Hemoglobin Concent 29.1 32-36 g/dl RDW Standard Deviation 53.5 36.4-46.3 fL RDW Coefficient of Variation 18.8 11.5-14.5 % Platelet Count 315 130-400 K/uL Mean Platelet Volume 9.7 7.4-10.4 fL Sodium Level 142 136-145 mmol/L Potassium Level 3.9 3.5-5.1 mmol/L Chloride Level 103 98-107 mmol/L Carbon Dioxide Level 34 21-32 mmol/L Anion Gap 5.0 3-11 mmol/L Blood Urea Nitrogen 21 7-18 mg/dl Creatinine 1.10 0.60-1.40 mg/dl Est Creatinine Clear Calc Drug Dose 78.4 ml/min Estimated GFR () 75.7 Estimated GFR (Non- 65.3 BUN/Creatinine Ratio 18.9 10-20 Random Glucose 85 70-99 mg/dl Estimated Average Glucose 180 mg/dl Hemoglobin A1c 7.9 4.5-5.6 % Calcium Level 8.5 8.5-10.1 mg/dl Magnesium Level 2.2 1.8-2.4 mg/dl
[2017-04-29] MEDS: ACETAMINOPHEN 500 MG TAB PO PRN (18:23)
[2017-04-29] MEDS: SIMVASTATIN 20 MG TAB PO SCH (21:37)
[2017-04-29] MEDS: TAMSULOSIN HCL 0.4 MG CAP PO SCH (21:40)
[2017-04-29] MEDS: INSULIN GLARGINE SOLOSTAR 100 UNITS/ML 3 ML PEN SQ SCH (21:41)
[2017-04-30] VITALS (13 sets, daily range): BP systolic 118–150; BP diastolic 59–79; PULSE 63–82; TEMP 36.2–36.9; O2SAT 88–98
[2017-04-30] MEDS: ACETAMINOPHEN 500 MG TAB PO PRN ×2 (06:13→21:17)
[2017-04-30 06:44] LABS: BUN/CREATININE RATIO 18.2 (10-20); CALCIUM 8.5 mg/dl (8.5-10.1); CREATININE 1.12 mg/dl (0.60-1.40); MAGNESIUM 2.1 mg/dl (1.8-2.4); PHOSPHORUS 2.9 mg/dl (2.5-4.9); POTASSIUM 4.2 mmol/L (3.5-5.1)
[2017-04-30] MEDS: INSULIN ASPART 100 UNITS/ML 3 ML PEN SC SCH ×4 (10:02→21:01)
[2017-04-30] MEDS: NYSTATIN/TRIAMCINOLONE CR 15 GM TUBE EXT SCH ×2 (10:02→19:59)
[2017-04-30] MEDS: FUROSEMIDE INJ 40 MG in SYRINGE 0 ML IV SCH ×2 (10:03→19:55)
[2017-04-30] MEDS: MAGNESIUM OXIDE 400 MG TAB PO SCH (10:03)
[2017-04-30] MEDS: GABAPENTIN 300 MG CAP PO SCH ×2 (10:04→19:59)
[2017-04-30] MEDS: PANTOprazole SOD 40 MG TAB PO SCH (10:04)
[2017-04-30] MEDS: VENLAFAXINE HCL 50 MG TAB PO SCH ×2 (10:04→19:57)
[2017-04-30] MEDS: ASPIRIN 81 MG ECTAB PO SCH (10:04)
[2017-04-30] MEDS: MULTIVITAMIN TAB PO SCH (10:04)
[2017-04-30] MEDS: FINASTERIDE 5 MG TAB PO SCH (10:05)
[2017-04-30] MEDS: METOPROLOL TARTRATE 25 MG TAB PO SCH ×2 (10:05→19:57)
[2017-04-30] MEDS: MODAFINIL 100 MG TAB PO SCH (10:11)
[2017-04-30] MEDS: POTASSIUM CHLORIDE 20 MEQ TABCR PO SCH ×2 (10:11→19:55)
[2017-04-30] MEDS ORDERED: COUGH DROP (SUGAR FREE) LOZ 24 LOZ/1 BOX ONE (12:25)
[2017-04-30] MEDS ORDERED: COUGH DROP (SUGAR FREE) LOZ 24 LOZ/1 BOX PO PRN (12:30)
[2017-04-30] MEDS ORDERED: NURSING VERBAL MED ORDER ONE (12:30)
--- NOTE | 2017-04-30 13:54 | Progress Note ---
Internal Med Progress Note Date of Service: Apr 30, 2017. Provider Documentation: SUBJECTIVE: Seen and examined at bedside States feeling better today Denies SOB, chest pain, dizziness Less cough Family at bedside No other complaints OBJECTIVE: Vital Signs-as noted below Physical Exam: General Appearance:Obese, no apparent distress Head: normocephalic, Atraumatic Eyes: normal inspection, EOMI, PERRL Neck: supple, Trachea midline Respiratory/Chest: Decreased breath sounds, mild expiratory wheezes bilaterally Cardiovascular: S1, S2, No murmur Abdomen/GI:Soft, Non tender, Obese,Bowel sounds present Extremities/Musculoskelatal:normal inspection, 1+ b/l edema Neurologic/Psych: grossly no focal neurological deficits Skin: normal color, warm Lab data as noted below. ASSESSMENT & PLAN: Acute on chronic diastolic heart failure. BNP moderately high with CXR evidence of CHF on presentation Recent decrease in dose of Lasix (As outpatient) Continue 40 mg IV Lasix twice daily Repeat CXR is better ECHO::Normal LV chamber size with moderate concentric LVH. * Normal LV systolic function, EF 60-65%. * No segmental left ventricular wall motion abnormalities are noted. * Grade II diastolic dysfunction. * Aortic valve sclerosis mild, without significant aortic valvular stenosis. * Mild tricuspid regurgitation. * Pulmonary hypertension is likely present with a RVSP of 40-50 mmHg, unable to accurately assess IVC size due to patient sitting upright during exam. * Mild biatrial enlargement. Monitor daily weight, I/Os, electrolytes and renal function Titrate off oxygen as able Chronic Respiratory failure with Hypercarbia Has not been using BIPAP as advised CO2 in mildly elevated Monitor GILLES, on CPAP. The patient has chronically elevated CO2 level. Continue CPAP QHS DM II Continue with his current insulin doses ISS, lantus monitor blood sugar levels A1C:7.9 Major depression: Continue with current medications. BPH: Continue with current medications. GERD: Continue PPI. Hyperlipidemia: Continue statin. DVT Px: SQ heparin. Code status: full code Disposition: May need Rehab placement PROCEDURES: ECHO: Normal LV chamber size with moderate concentric LVH. * Normal LV systolic function, EF 60-65%. * No segmental left ventricular wall motion abnormalities are noted. * Grade II diastolic dysfunction. * Aortic valve sclerosis mild, without significant aortic valvular stenosis. * Mild tricuspid regurgitation. * Pulmonary hypertension is likely present with a RVSP of 40-50 mmHg, unable to accurately assess IVC size due to patient sitting upright during exam. * Mild biatrial enlargement. Vital Signs: Date Time Temp Pulse Resp B/P (MAP) Pulse Ox O2 Delivery O2 Flow Rate FiO2 04/30/17 11:20 36.6 63 15 131/62 (85) 97 Nasal Cannula 3.0 04/30/17 06:48 36.4 65 15 120/70 (87) 96 Nasal Cannula 2.0 04/30/17 04:00 Nasal Cannula 2.0 04/30/17 03:24 36.5 72 16 126/69 (88) 94 Nasal Cannula 2.0 04/30/17 00:00 Nasal Cannula 2.0 04/29/17 23:18 36.5 72 20 146/81 (102) 93 BiPAP 04/29/17 22:58 84 96 28 04/29/17 20:00 Nasal Cannula 2.0 04/29/17 19:11 36.5 73 22 134/72 (92) 97 Nasal Cannula 2.0 04/29/17 16:00 97 Nasal Cannula 2.0 04/29/17 14:59 36.5 70 20 151/78 (102) 97 Nasal Cannula 2.0 Lab Results: Results Past 24 Hours Test 04/29/17 16:13 04/29/17 20:08 04/30/17 05:53 04/30/17 11:24 Range/Units Bedside Glucose 133 152 266 70-99 mg/dl Sodium Level 138 136-145 mmol/L Potassium Level 4.2 3.5-5.1 mmol/L Chloride Level 101 98-107 mmol/L Carbon Dioxide Level 37 21-32 mmol/L Anion Gap 0.0 3-11 mmol/L Blood Urea Nitrogen 20 7-18 mg/dl Creatinine 1.12 0.60-1.40 mg/dl Est Creatinine Clear Calc Drug Dose 77.0 ml/min Estimated GFR () 74.1 Estimated GFR (Non- 63.9 BUN/Creatinine Ratio 18.2 10-20 Random Glucose 122 70-99 mg/dl Calcium Level 8.5 8.5-10.1 mg/dl Phosphorus Level 2.9 2.5-4.9 mg/dl Magnesium Level 2.1 1.8-2.4 mg/dl
[2017-04-30] MEDS: ALBUT/IPRATROP 3MG/0.5MG NEB 3 ML VIAL INH SCH ×2 (15:48→20:03)
[2017-04-30] MEDS: SIMVASTATIN 20 MG TAB PO SCH (19:58)
[2017-04-30] MEDS: TAMSULOSIN HCL 0.4 MG CAP PO SCH (19:58)
[2017-04-30] MEDS: INSULIN GLARGINE SOLOSTAR 100 UNITS/ML 3 ML PEN SQ SCH (21:01)
[2017-05-01] VITALS (8 sets, daily range): BP systolic 92–141; BP diastolic 52–74; PULSE 69–81; TEMP 36.4–36.8; O2SAT 87–98
[2017-05-01] MEDS: ALBUT/IPRATROP 3MG/0.5MG NEB 3 ML VIAL INH SCH ×3 (06:58→19:17)
[2017-05-01 08:23] LABS: BUN/CREATININE RATIO 19.5 (10-20); CALCIUM 8.3 mg/dl (8.5-10.1); CREATININE 1.12 mg/dl (0.60-1.40); MAGNESIUM 2.2 mg/dl (1.8-2.4); POTASSIUM 4.3 mmol/L (3.5-5.1)
[2017-05-01] MEDS: MULTIVITAMIN TAB PO SCH (08:30)
[2017-05-01] MEDS: PANTOprazole SOD 40 MG TAB PO SCH (08:30)
[2017-05-01] MEDS: INSULIN ASPART 100 UNITS/ML 3 ML PEN SC SCH ×4 (08:30→20:51)
[2017-05-01] MEDS: VENLAFAXINE HCL 50 MG TAB PO SCH ×2 (08:31→20:45)
[2017-05-01] MEDS: NYSTATIN/TRIAMCINOLONE CR 15 GM TUBE EXT SCH ×2 (08:32→20:39)
[2017-05-01] MEDS: FUROSEMIDE INJ 40 MG in SYRINGE 0 ML IV SCH ×2 (08:32→20:40)
[2017-05-01] MEDS: ASPIRIN 81 MG ECTAB PO SCH (08:32)
[2017-05-01] MEDS: METOPROLOL TARTRATE 25 MG TAB PO SCH ×2 (08:33→20:49)
[2017-05-01] MEDS: POTASSIUM CHLORIDE 20 MEQ TABCR PO SCH ×2 (08:33→20:48)
[2017-05-01] MEDS: GABAPENTIN 300 MG CAP PO SCH ×2 (08:34→20:50)
[2017-05-01] MEDS: MODAFINIL 100 MG TAB PO SCH (08:44)
[2017-05-01] MEDS: FINASTERIDE 5 MG TAB PO SCH (11:27)
--- NOTE | 2017-05-01 11:31 | Progress Note ---
Internal Med Progress Note Date of Service: May 01, 2017. Provider Documentation: SUBJECTIVE: Seen and examined at bedside Feels well No complaints Denies SOB, chest pain, dizziness Still requiring 2-3 L of oxygen to maintain sats OBJECTIVE: Vital Signs-as noted below Physical Exam: General Appearance:Obese, no apparent distress Head: normocephalic, Atraumatic Eyes: normal inspection, EOMI, PERRL Neck: supple, Trachea midline Respiratory/Chest: Decreased breath sounds, mild creps at bases Cardiovascular: S1, S2, No murmur Abdomen/GI:Soft, Non tender, Obese,Bowel sounds present Extremities/Musculoskelatal:normal inspection, 1+ b/l edema Neurologic/Psych: grossly no focal neurological deficits Skin: normal color, warm Lab data as noted below. ASSESSMENT & PLAN: Acute on chronic diastolic heart failure. BNP moderately high with CXR evidence of CHF on presentation Recent decrease in dose of Lasix (As outpatient) Continue 40 mg IV Lasix twice daily Repeat CXR is better ECHO::Normal LV chamber size with moderate concentric LVH. * Normal LV systolic function, EF 60-65%. * No segmental left ventricular wall motion abnormalities are noted. * Grade II diastolic dysfunction. * Aortic valve sclerosis mild, without significant aortic valvular stenosis. * Mild tricuspid regurgitation. * Pulmonary hypertension is likely present with a RVSP of 40-50 mmHg, unable to accurately assess IVC size due to patient sitting upright during exam. * Mild biatrial enlargement. Monitor daily weight, I/Os, electrolytes and renal function Titrate off oxygen as able Will repeat CXR in AM Chronic Respiratory failure with Hypercarbia Has not been using BIPAP as advised CO2 in mildly elevated Monitor Creatinine stable GILLES, on CPAP. The patient has chronically elevated CO2 level. Continue CPAP QHS DM II Continue with his current insulin doses ISS, lantus monitor blood sugar levels A1C:7.9 Major depression: Continue with current medications. BPH: Continue with current medications. GERD: Continue PPI. Hyperlipidemia: Continue statin. DVT Px: SQ heparin. Code status: full code Disposition: May need Rehab placement PROCEDURES: ECHO: Normal LV chamber size with moderate concentric LVH. * Normal LV systolic function, EF 60-65%. * No segmental left ventricular wall motion abnormalities are noted. * Grade II diastolic dysfunction. * Aortic valve sclerosis mild, without significant aortic valvular stenosis. * Mild tricuspid regurgitation. * Pulmonary hypertension is likely present with a RVSP of 40-50 mmHg, unable to accurately assess IVC size due to patient sitting upright during exam. * Mild biatrial enlargement. Vital Signs: Date Time Temp Pulse Resp B/P (MAP) Pulse Ox O2 Delivery O2 Flow Rate FiO2 05/01/17 08:24 36.8 74 18 138/69 (92) 96 Nasal Cannula 3.0 05/01/17 06:58 70 16 87 Room Air 05/01/17 04:00 Nasal Cannula 2.0 05/01/17 02:58 36.5 75 20 141/74 (96) 98 Nasal Cannula 3.0 05/01/17 00:00 Nasal Cannula 2.0 04/30/17 23:11 36.5 73 20 150/77 (101) 96 Nasal Cannula 3.0 04/30/17 20:00 95 Nasal Cannula 2.0 04/30/17 19:55 88 Room Air 04/30/17 19:52 36.9 82 18 118/59 (78) 94 Nasal Cannula 2.0 04/30/17 19:15 78 16 95 Nasal Cannula 1.5 04/30/17 16:00 95 Nasal Cannula 2.0 04/30/17 15:49 76 14 98 Nasal Cannula 1.5 04/30/17 15:43 36.2 71 20 147/79 (101) 95 Room Air 04/30/17 15:05 36.5 74 15 136/73 (94) 95 3.0 04/30/17 12:00 Nasal Cannula 2.0 Lab Results: Results Past 24 Hours Test 04/30/17 16:26 04/30/17 20:10 05/01/17 06:38 05/01/17 07:23 Range/Units Bedside Glucose 73 234 114 70-99 mg/dl Hemoglobin 9.4 14.0-18.0 g/dL Hematocrit 33.0 42-52 % Sodium Level 139 136-145 mmol/L Potassium Level 4.3 3.5-5.1 mmol/L Chloride Level 101 98-107 mmol/L Carbon Dioxide Level 34 21-32 mmol/L Anion Gap 4.0 3-11 mmol/L Blood Urea Nitrogen 22 7-18 mg/dl Creatinine 1.12 0.60-1.40 mg/dl Est Creatinine Clear Calc Drug Dose 76.3 ml/min Estimated GFR () 74.1 Estimated GFR (Non- 63.9 BUN/Creatinine Ratio 19.5 10-20 Random Glucose 99 70-99 mg/dl Calcium Level 8.3 8.5-10.1 mg/dl Magnesium Level 2.2 1.8-2.4 mg/dl
[2017-05-01] MEDS: MAGNESIUM OXIDE 400 MG TAB PO SCH (12:18)
[2017-05-01] MEDS: ACETAMINOPHEN 500 MG TAB PO PRN (16:51)
[2017-05-01] MEDS ORDERED: LORAZEPAM 0.5 MG TAB PO ONE (18:30)
[2017-05-01] MEDS: TAMSULOSIN HCL 0.4 MG CAP PO SCH (20:47)
[2017-05-01] MEDS: SIMVASTATIN 20 MG TAB PO SCH (20:50)
[2017-05-01] MEDS: INSULIN GLARGINE SOLOSTAR 100 UNITS/ML 3 ML PEN SQ SCH (21:03)
[2017-05-02] VITALS (7 sets, daily range): BP systolic 111–123; BP diastolic 64–66; PULSE 65–76; TEMP 36.4–36.8; O2SAT 86–94
[2017-05-02] MEDS ORDERED: OLANZAPINE ZYDIS 5 MG ORALLY DIS. TAB PO ONE (01:15)
[2017-05-02] MEDS: MICONAZOLE NITRATE POWDER 43 GM EXT PRN (04:32)
[2017-05-02] MEDS: ACETAMINOPHEN 500 MG TAB PO PRN ×2 (06:29→12:46)
[2017-05-02] MEDS: ALBUT/IPRATROP 3MG/0.5MG NEB 3 ML VIAL INH SCH ×4 (07:06→19:19)
--- NOTE | 2017-05-02 07:36 | DIAGNOSTIC IMAGING REPORT ---
CHEST ONE VIEW PORTABLE HISTORY: 76 years-old Male CHF follow-up study in a patient with congestive heart failure. Acute shortness of breath COMPARISON: Chest radiograph 04/29/2017 TECHNIQUE: Portable upright AP view of the chest FINDINGS: Moderate cardiomegaly with persistent pulmonary vascular congestion, improved background interstitial thickening and hazy left basilar opacities with trace left pleural effusion. Mildly improved aeration of the left lung base from comparison. Healing lower right rib fracture redemonstrated. Anteroinferior subluxation of the right humeral head redemonstrated with degenerative changes of the bilateral shoulders and spine. IMPRESSION: 1. Cardiomegaly with slightly improved mild pulmonary edema. 2. Hazy left basilar opacities suggest atelectasis with trace left pleural effusion. The above report was generated using voice recognition software. It may contain grammatical, syntax or spelling errors. Electronically signed by: Cj Hemphill M.D. 05/02/2017 7:35 AM Dictated Date/Time: 05/02/2017 7:32 AM
[2017-05-02 08:05] LABS: BUN/CREATININE RATIO 16.8 (10-20); CALCIUM 8.3 mg/dl (8.5-10.1); CREATININE 1.19 mg/dl (0.60-1.40); MAGNESIUM 2.2 mg/dl (1.8-2.4); POTASSIUM 3.9 mmol/L (3.5-5.1)
[2017-05-02] MEDS: MODAFINIL 100 MG TAB PO SCH (08:29)
[2017-05-02] MEDS: MULTIVITAMIN TAB PO SCH (08:30)
[2017-05-02] MEDS: ASPIRIN 81 MG ECTAB PO SCH (08:30)
[2017-05-02] MEDS: POTASSIUM CHLORIDE 20 MEQ TABCR PO SCH ×2 (08:30→20:37)
[2017-05-02] MEDS: GABAPENTIN 300 MG CAP PO SCH ×2 (08:30→20:35)
[2017-05-02] MEDS: MAGNESIUM OXIDE 400 MG TAB PO SCH (08:30)
[2017-05-02] MEDS: PANTOprazole SOD 40 MG TAB PO SCH (08:30)
[2017-05-02] MEDS: VENLAFAXINE HCL 50 MG TAB PO SCH ×2 (08:30→20:38)
[2017-05-02] MEDS: METOPROLOL TARTRATE 25 MG TAB PO SCH ×2 (08:30→20:36)
[2017-05-02] MEDS: FINASTERIDE 5 MG TAB PO SCH (08:31)
[2017-05-02] MEDS: NYSTATIN/TRIAMCINOLONE CR 15 GM TUBE EXT SCH ×2 (08:31→20:34)
[2017-05-02] MEDS: INSULIN ASPART 100 UNITS/ML 3 ML PEN SC SCH ×4 (08:33→20:40)
[2017-05-02] MEDS: FUROSEMIDE INJ 40 MG in SYRINGE 0 ML IV SCH ×2 (09:34→20:34)
--- NOTE | 2017-05-02 15:38 | Progress Note ---
Internal Med Progress Note Date of Service: May 02, 2017. Provider Documentation: SUBJECTIVE: Seen and examined at bedside Drowsy this morning, states did not sleep well overnight Diarrhea resolved per patient Denies SOB, chest pain, dizziness Has chronic leg pain Still requiring 2 L of oxygen to maintain sats OBJECTIVE: Vital Signs-as noted below Physical Exam: General Appearance:Obese, no apparent distress Head: normocephalic, Atraumatic Eyes: normal inspection, EOMI, PERRL Neck: supple, Trachea midline Respiratory/Chest: Decreased breath sounds, mild creps Cardiovascular: S1, S2, No murmur Abdomen/GI:Soft, Non tender, Obese,Bowel sounds present Extremities/Musculoskelatal:normal inspection, 1+ b/l edema Neurologic/Psych: grossly no focal neurological deficits Skin: normal color, warm Lab data as noted below. ASSESSMENT & PLAN: Acute on chronic diastolic heart failure. BNP moderately high with CXR evidence of CHF on presentation Recent decrease in dose of Lasix (As outpatient) Continue 40 mg IV Lasix twice daily Repeat CXR is better ECHO::Normal LV chamber size with moderate concentric LVH. * Normal LV systolic function, EF 60-65%. * No segmental left ventricular wall motion abnormalities are noted. * Grade II diastolic dysfunction. * Aortic valve sclerosis mild, without significant aortic valvular stenosis. * Mild tricuspid regurgitation. * Pulmonary hypertension is likely present with a RVSP of 40-50 mmHg, unable to accurately assess IVC size due to patient sitting upright during exam. * Mild biatrial enlargement. Monitor daily weight, I/Os, electrolytes and renal function Titrate off oxygen as able repeat CXR: Improved BNP better Continue current management AVOID NARCOTICS/BENZOs Chronic Respiratory failure with Hypercarbia Has not been using BIPAP as advised CO2 in mildly elevated Monitor Creatinine stable GILLES, on CPAP. The patient has chronically elevated CO2 level. Continue CPAP QHS DM II Continue with his current insulin doses ISS, lantus monitor blood sugar levels A1C:7.9 Major depression: Continue with current medications. BPH: Continue with current medications. GERD: Continue PPI. Hyperlipidemia: Continue statin. DVT Px: SQ heparin. Code status: full code Disposition: Plan to discharge to Rehab when stable PROCEDURES: ECHO: Normal LV chamber size with moderate concentric LVH. * Normal LV systolic function, EF 60-65%. * No segmental left ventricular wall motion abnormalities are noted. * Grade II diastolic dysfunction. * Aortic valve sclerosis mild, without significant aortic valvular stenosis. * Mild tricuspid regurgitation. * Pulmonary hypertension is likely present with a RVSP of 40-50 mmHg, unable to accurately assess IVC size due to patient sitting upright during exam. * Mild biatrial enlargement. Vital Signs: Date Time Temp Pulse Resp B/P (MAP) Pulse Ox O2 Delivery O2 Flow Rate FiO2 05/02/17 14:30 36.8 73 18 123/64 (83) 94 Nasal Cannula 2.0 05/02/17 11:24 65 16 86 Room Air 05/02/17 09:30 Nasal Cannula 2.0 05/02/17 07:38 36.4 74 20 111/66 (81) 92 Nasal Cannula 2.0 05/02/17 07:17 76 16 90 Nasal Cannula 2.0 05/02/17 00:10 Nasal Cannula 2.0 05/01/17 23:04 36.6 81 20 104/52 (69) 93 Nasal Cannula 2.0 05/01/17 19:17 76 16 92 Nasal Cannula 2.0 05/01/17 16:00 Nasal Cannula 2.0 Lab Results: Results Past 24 Hours Test 05/01/17 16:58 05/01/17 20:20 05/02/17 07:19 05/02/17 07:20 Range/Units Bedside Glucose 146 124 104 70-99 mg/dl Sodium Level 141 136-145 mmol/L Potassium Level 3.9 3.5-5.1 mmol/L Chloride Level 103 98-107 mmol/L Carbon Dioxide Level 34 21-32 mmol/L Anion Gap 4.0 3-11 mmol/L Blood Urea Nitrogen 20 7-18 mg/dl Creatinine 1.19 0.60-1.40 mg/dl Est Creatinine Clear Calc Drug Dose 71.9 ml/min Estimated GFR () 68.8 Estimated GFR (Non- 59.4 BUN/Creatinine Ratio 16.8 10-20 Random Glucose 97 70-99 mg/dl Calcium Level 8.3 8.5-10.1 mg/dl Magnesium Level 2.2 1.8-2.4 mg/dl Pro-B-Type Natriuretic Peptide 1447 0-900 pg/ml Test 05/02/17 11:07 Range/Units Bedside Glucose 121 70-99 mg/dl Microbiology Results 05/02/17 C.difficile Toxin B Gene (PCR) - Final, Complete No C. difficile toxin B gene detected
[2017-05-02] MEDS: SIMVASTATIN 20 MG TAB PO SCH (20:36)
[2017-05-02] MEDS: TAMSULOSIN HCL 0.4 MG CAP PO SCH (20:38)
[2017-05-02] MEDS: INSULIN GLARGINE SOLOSTAR 100 UNITS/ML 3 ML PEN SQ SCH (20:41)
[2017-05-03] VITALS (8 sets, daily range): BP systolic 114–163; BP diastolic 66–85; PULSE 64–87; TEMP 36.4–36.8; O2SAT 93–98
[2017-05-03] MEDS: ALBUT/IPRATROP 3MG/0.5MG NEB 3 ML VIAL INH SCH ×4 (06:57→19:25)
[2017-05-03 07:21] LABS: HEMATOCRIT 33.5 % (42-52)
[2017-05-03] MEDS: MODAFINIL 100 MG TAB PO SCH (07:25)
[2017-05-03] MEDS: METOPROLOL TARTRATE 25 MG TAB PO SCH ×2 (07:26→20:17)
[2017-05-03] MEDS: ACETAMINOPHEN 500 MG TAB PO PRN ×2 (07:26→20:13)
[2017-05-03] MEDS: MULTIVITAMIN TAB PO SCH (07:26)
[2017-05-03] MEDS: FINASTERIDE 5 MG TAB PO SCH (07:27)
[2017-05-03] MEDS: POTASSIUM CHLORIDE 20 MEQ TABCR PO SCH ×2 (07:27→20:15)
[2017-05-03] MEDS: PANTOprazole SOD 40 MG TAB PO SCH (07:27)
[2017-05-03] MEDS: VENLAFAXINE HCL 50 MG TAB PO SCH ×2 (07:27→20:14)
[2017-05-03] MEDS: GABAPENTIN 300 MG CAP PO SCH ×2 (07:27→20:15)
[2017-05-03] MEDS: MAGNESIUM OXIDE 400 MG TAB PO SCH (07:27)
[2017-05-03] MEDS: NYSTATIN/TRIAMCINOLONE CR 15 GM TUBE EXT SCH ×2 (07:28→20:13)
[2017-05-03] MEDS: ASPIRIN 81 MG ECTAB PO SCH (07:28)
[2017-05-03 07:39] LABS: BUN/CREATININE RATIO 20.1 (10-20); CALCIUM 8.4 mg/dl (8.5-10.1); CREATININE 1.21 mg/dl (0.60-1.40); MAGNESIUM 2.1 mg/dl (1.8-2.4); POTASSIUM 3.7 mmol/L (3.5-5.1)
[2017-05-03] MEDS: FUROSEMIDE INJ 40 MG in SYRINGE 0 ML IV SCH ×2 (08:24→20:38)
[2017-05-03] MEDS: INSULIN ASPART 100 UNITS/ML 3 ML PEN SC SCH ×4 (08:26→20:21)
--- NOTE | 2017-05-03 14:38 | Progress Note ---
Internal Med Progress Note Date of Service: May 03, 2017. Provider Documentation: SUBJECTIVE: Seen and examined at bedside More alert, awake today Has intermittent diarrhea. Stool for C.diff negative Denies SOB, chest pain, dizziness Still requiring 2 L of oxygen to maintain sats OBJECTIVE: Vital Signs-as noted below Physical Exam: General Appearance:Obese, no apparent distress Head: normocephalic, Atraumatic Eyes: normal inspection, EOMI, PERRL Neck: supple, Trachea midline Respiratory/Chest: Decreased breath sounds, CTA Cardiovascular: S1, S2, No murmur Abdomen/GI:Soft, Non tender, Obese,Bowel sounds present Extremities/Musculoskelatal:normal inspection, 1+ b/l edema Neurologic/Psych: grossly no focal neurological deficits Skin: normal color, warm Lab data as noted below. ASSESSMENT & PLAN: Acute on chronic diastolic heart failure. BNP moderately high with CXR evidence of CHF on presentation Recent decrease in dose of Lasix (As outpatient) Continue 40 mg IV Lasix twice daily Repeat CXR is better ECHO::Normal LV chamber size with moderate concentric LVH. * Normal LV systolic function, EF 60-65%. * No segmental left ventricular wall motion abnormalities are noted. * Grade II diastolic dysfunction. * Aortic valve sclerosis mild, without significant aortic valvular stenosis. * Mild tricuspid regurgitation. * Pulmonary hypertension is likely present with a RVSP of 40-50 mmHg, unable to accurately assess IVC size due to patient sitting upright during exam. * Mild biatrial enlargement. Monitor daily weight, I/Os, electrolytes and renal function Titrate off oxygen as able repeat CXR, BNP Improved AVOID NARCOTICS/BENZOs Continue current management Will plan to discharge to [facility] when accepted Chronic Respiratory failure with Hypercarbia Has not been using BIPAP as advised CO2 in mildly elevated Monitor Creatinine stable Diarrhea: Stool for C.diff negative Imodium PRN GILLES, on CPAP. The patient has chronically elevated CO2 level. Continue CPAP QHS DM II Continue with his current insulin doses ISS, lantus monitor blood sugar levels A1C:7.9 Major depression: Continue with current medications. BPH: Continue with current medications. GERD: Continue PPI. Hyperlipidemia: Continue statin. DVT Px: SQ heparin. Code status: full code Disposition: Plan to discharge to [facility] when accepted PROCEDURES: ECHO: Normal LV chamber size with moderate concentric LVH. * Normal LV systolic function, EF 60-65%. * No segmental left ventricular wall motion abnormalities are noted. * Grade II diastolic dysfunction. * Aortic valve sclerosis mild, without significant aortic valvular stenosis. * Mild tricuspid regurgitation. * Pulmonary hypertension is likely present with a RVSP of 40-50 mmHg, unable to accurately assess IVC size due to patient sitting upright during exam. * Mild biatrial enlargement. Vital Signs: Date Time Temp Pulse Resp B/P (MAP) Pulse Ox O2 Delivery O2 Flow Rate FiO2 05/03/17 11:08 66 16 98 Nasal Cannula 2.0 05/03/17 08:00 Nasal Cannula 2.0 05/03/17 07:30 36.4 75 20 144/78 (100) 96 Nasal Cannula 2.0 05/03/17 07:00 64 16 97 Nasal Cannula 2.0 05/03/17 01:15 93 Nasal Cannula 2.0 28 05/02/17 19:19 68 16 93 Nasal Cannula 2.0 05/02/17 16:15 93 Nasal Cannula 2.0 05/02/17 16:01 68 16 93 Nasal Cannula 2.0 Lab Results: Results Past 24 Hours Test 05/02/17 16:24 05/02/17 20:29 05/03/17 06:58 05/03/17 07:27 Range/Units Bedside Glucose 161 153 90 70-99 mg/dl Hemoglobin 9.6 14.0-18.0 g/dL Hematocrit 33.5 42-52 % Sodium Level 140 136-145 mmol/L Potassium Level 3.7 3.5-5.1 mmol/L Chloride Level 102 98-107 mmol/L Carbon Dioxide Level 34 21-32 mmol/L Anion Gap 4.0 3-11 mmol/L Blood Urea Nitrogen 24 7-18 mg/dl Creatinine 1.21 0.60-1.40 mg/dl Est Creatinine Clear Calc Drug Dose 70.7 ml/min Estimated GFR () 67.5 Estimated GFR (Non- 58.2 BUN/Creatinine Ratio 20.1 10-20 Random Glucose 94 70-99 mg/dl Calcium Level 8.4 8.5-10.1 mg/dl Magnesium Level 2.1 1.8-2.4 mg/dl Test 05/03/17 11:24 Range/Units Bedside Glucose 133 70-99 mg/dl
[2017-05-03] MEDS: LOPERAMIDE HCL 2 MG CAP PO PRN ×2 (15:57→21:37)
[2017-05-03] MEDS: TAMSULOSIN HCL 0.4 MG CAP PO SCH (20:17)
[2017-05-03] MEDS: SIMVASTATIN 20 MG TAB PO SCH (20:18)
[2017-05-03] MEDS: INSULIN GLARGINE SOLOSTAR 100 UNITS/ML 3 ML PEN SQ SCH (20:33)
[2017-05-04] VITALS (9 sets, daily range): BP systolic 116–134; BP diastolic 68–75; PULSE 70–76; TEMP 36.8–37.1; O2SAT 91–98
[2017-05-04] MEDS ORDERED: LOPERAMIDE HCL 2 MG CAP PO ONE (02:30)
[2017-05-04] MEDS: ALBUT/IPRATROP 3MG/0.5MG NEB 3 ML VIAL INH SCH ×4 (06:58→18:54)
[2017-05-04 08:30] LABS: BUN/CREATININE RATIO 18.6 (10-20); CALCIUM 8.5 mg/dl (8.5-10.1); CREATININE 1.14 mg/dl (0.60-1.40); MAGNESIUM 2.1 mg/dl (1.8-2.4)
[2017-05-04] MEDS: FUROSEMIDE INJ 40 MG in SYRINGE 0 ML IV SCH ×2 (09:12→21:14)
[2017-05-04] MEDS: NYSTATIN/TRIAMCINOLONE CR 15 GM TUBE EXT SCH ×2 (09:12→21:14)
[2017-05-04] MEDS: POTASSIUM CHLORIDE 20 MEQ TABCR PO SCH ×2 (09:13→21:16)
[2017-05-04] MEDS: VENLAFAXINE HCL 50 MG TAB PO SCH ×2 (09:13→21:15)
[2017-05-04] MEDS: ASPIRIN 81 MG ECTAB PO SCH (09:14)
[2017-05-04] MEDS: GABAPENTIN 300 MG CAP PO SCH ×2 (09:14→21:17)
[2017-05-04] MEDS: METOPROLOL TARTRATE 25 MG TAB PO SCH ×2 (09:15→21:17)
[2017-05-04] MEDS: PANTOprazole SOD 40 MG TAB PO SCH (09:16)
[2017-05-04] MEDS: MULTIVITAMIN TAB PO SCH (09:16)
[2017-05-04] MEDS: FINASTERIDE 5 MG TAB PO SCH (09:16)
[2017-05-04] MEDS: MAGNESIUM OXIDE 400 MG TAB PO SCH (09:17)
[2017-05-04] MEDS: INSULIN ASPART 100 UNITS/ML 3 ML PEN SC SCH ×4 (09:43→21:19)
[2017-05-04] MEDS: MODAFINIL 100 MG TAB PO SCH (10:31)
[2017-05-04] MEDS: LOPERAMIDE HCL 2 MG CAP PO PRN (10:31)
[2017-05-04] MEDS: ACETAMINOPHEN 500 MG TAB PO PRN ×2 (13:39→19:42)
--- NOTE | 2017-05-04 14:55 | Progress Note ---
Internal Med Progress Note Date of Service: May 04, 2017. Provider Documentation: SUBJECTIVE: Seen and examined at bedside Feels tired States diarrhea improving Denies SOB, chest pain, dizziness Still requiring 2 L of oxygen to maintain sats No other complaints OBJECTIVE: Vital Signs-as noted below Physical Exam: General Appearance:Obese, no apparent distress Head: normocephalic, Atraumatic Eyes: normal inspection, EOMI, PERRL Neck: supple, Trachea midline Respiratory/Chest: Decreased breath sounds, CTA Cardiovascular: S1, S2, No murmur Abdomen/GI:Soft, Non tender, Obese,Bowel sounds present Extremities/Musculoskelatal:normal inspection, 1+ b/l edema Neurologic/Psych: grossly no focal neurological deficits Skin: normal color, warm Lab data as noted below. ASSESSMENT & PLAN: Acute on chronic diastolic heart failure. BNP moderately high with CXR evidence of CHF on presentation Recent decrease in dose of Lasix (As outpatient) Continue 40 mg IV Lasix twice daily Repeat CXR is better ECHO::Normal LV chamber size with moderate concentric LVH. * Normal LV systolic function, EF 60-65%. * No segmental left ventricular wall motion abnormalities are noted. * Grade II diastolic dysfunction. * Aortic valve sclerosis mild, without significant aortic valvular stenosis. * Mild tricuspid regurgitation. * Pulmonary hypertension is likely present with a RVSP of 40-50 mmHg, unable to accurately assess IVC size due to patient sitting upright during exam. * Mild biatrial enlargement. Monitor daily weight, I/Os, electrolytes and renal function Titrate off oxygen as able repeat CXR, BNP Improved AVOID NARCOTICS/BENZOs Continue IV diuretics for now Plan to discharge to [facility] when accepted Chronic Respiratory failure with Hypercarbia Has not been using BIPAP as advised CO2 in mildly elevated Monitor Creatinine stable Diarrhea: Stool for C.diff negative Imodium PRN Recheck stool for c.diff GILLES, on CPAP. The patient has chronically elevated CO2 level. Continue CPAP QHS DM II Continue with his current insulin doses ISS, lantus monitor blood sugar levels A1C:7.9 Major depression: Continue with current medications. BPH: Continue with current medications. GERD: Continue PPI. Hyperlipidemia: Continue statin. DVT Px: SQ Lovenox Code status: full code Disposition: Plan to discharge to [facility] when accepted PROCEDURES: ECHO: Normal LV chamber size with moderate concentric LVH. * Normal LV systolic function, EF 60-65%. * No segmental left ventricular wall motion abnormalities are noted. * Grade II diastolic dysfunction. * Aortic valve sclerosis mild, without significant aortic valvular stenosis. * Mild tricuspid regurgitation. * Pulmonary hypertension is likely present with a RVSP of 40-50 mmHg, unable to accurately assess IVC size due to patient sitting upright during exam. * Mild biatrial enlargement. Vital Signs: Date Time Temp Pulse Resp B/P (MAP) Pulse Ox O2 Delivery O2 Flow Rate FiO2 05/04/17 16:00 96 Nasal Cannula 2.0 05/04/17 15:27 72 18 96 Nasal Cannula 2.0 05/04/17 15:07 37.1 70 20 122/75 (91) 98 2.0 05/04/17 11:15 73 18 95 Nasal Cannula 2.0 05/04/17 08:02 36.8 73 20 134/72 (92) 98 05/04/17 08:00 Nasal Cannula 3.0 05/04/17 06:58 70 18 92 Nasal Cannula 2.0 05/04/17 00:00 Nasal Cannula 3.0 05/03/17 23:54 36.8 77 20 163/72 (102) 93 3.0 05/03/17 20:23 87 157/85 (109) 05/03/17 19:27 67 18 97 Nasal Cannula 2.0 Lab Results: Results Past 24 Hours Test 05/03/17 20:21 05/04/17 06:04 05/04/17 07:40 05/04/17 11:21 Range/Units Bedside Glucose 92 79 144 70-99 mg/dl Sodium Level 143 136-145 mmol/L Potassium Level 4.0 3.5-5.1 mmol/L Chloride Level 104 98-107 mmol/L Carbon Dioxide Level 33 21-32 mmol/L Anion Gap 5.0 3-11 mmol/L Blood Urea Nitrogen 21 7-18 mg/dl Creatinine 1.14 0.60-1.40 mg/dl Est Creatinine Clear Calc Drug Dose 75.0 ml/min Estimated GFR () 72.5 Estimated GFR (Non- 62.6 BUN/Creatinine Ratio 18.6 10-20 Random Glucose 66 70-99 mg/dl Calcium Level 8.5 8.5-10.1 mg/dl Magnesium Level 2.1 1.8-2.4 mg/dl
[2017-05-04] MEDS: TRAMADOL HCL 50 MG TAB PO PRN (17:50)
[2017-05-04] MEDS: LACTOBACILLUS ACIDOPHILUS (FLORANEX) TAB PO SCH (18:02)
[2017-05-04 18:12] LABS: PROTHROMBIN TIME (PATIENT) 10.6 SECONDS (9.0-12.0)
[2017-05-04] MEDS: ENOXAPARIN 40 MG/0.4 ML SYR SQ SCH (19:43)
[2017-05-04] MEDS: TAMSULOSIN HCL 0.4 MG CAP PO SCH (21:18)
[2017-05-04] MEDS: SIMVASTATIN 20 MG TAB PO SCH (21:18)
[2017-05-04] MEDS: INSULIN GLARGINE SOLOSTAR 100 UNITS/ML 3 ML PEN SQ SCH (21:24)
[2017-05-05] VITALS (9 sets, daily range): BP systolic 114–153; BP diastolic 48–80; PULSE 63–81; TEMP 36.4–36.8; O2SAT 75–98
[2017-05-05] MEDS: LOPERAMIDE HCL 2 MG CAP PO PRN ×3 (03:20→23:35)
[2017-05-05] MEDS: ALBUT/IPRATROP 3MG/0.5MG NEB 3 ML VIAL INH SCH ×4 (06:44→18:53)
[2017-05-05 06:58] LABS: BUN/CREATININE RATIO 18.1 (10-20); CALCIUM 8.7 mg/dl (8.5-10.1); CREATININE 1.34 mg/dl (0.60-1.40)
[2017-05-05] MEDS: NYSTATIN/TRIAMCINOLONE CR 15 GM TUBE EXT SCH ×2 (07:29→20:27)
[2017-05-05] MEDS: FUROSEMIDE INJ 40 MG in SYRINGE 0 ML IV SCH ×2 (07:29→20:27)
[2017-05-05] MEDS: PANTOprazole SOD 40 MG TAB PO SCH (07:30)
[2017-05-05] MEDS: GABAPENTIN 300 MG CAP PO SCH ×2 (07:30→20:32)
[2017-05-05] MEDS: MULTIVITAMIN TAB PO SCH (07:30)
[2017-05-05] MEDS: FINASTERIDE 5 MG TAB PO SCH (07:30)
[2017-05-05] MEDS: POTASSIUM CHLORIDE 20 MEQ TABCR PO SCH ×2 (07:31→20:31)
[2017-05-05] MEDS: MAGNESIUM OXIDE 400 MG TAB PO SCH (07:31)
[2017-05-05] MEDS: ASPIRIN 81 MG ECTAB PO SCH (07:32)
[2017-05-05] MEDS: VENLAFAXINE HCL 50 MG TAB PO SCH ×2 (07:32→20:29)
[2017-05-05] MEDS: LACTOBACILLUS ACIDOPHILUS (FLORANEX) TAB PO SCH ×3 (07:33→17:44)
[2017-05-05] MEDS: METOPROLOL TARTRATE 25 MG TAB PO SCH ×2 (07:36→20:32)
[2017-05-05] MEDS: MODAFINIL 100 MG TAB PO SCH (08:39)
[2017-05-05] MEDS: INSULIN ASPART 100 UNITS/ML 3 ML PEN SC SCH ×4 (08:42→20:26)
[2017-05-05] MEDS: ACETAMINOPHEN 500 MG TAB PO PRN ×2 (12:12→21:51)
--- NOTE | 2017-05-05 12:42 | Progress Note ---
Internal Med Progress Note Date of Service: May 05, 2017. Provider Documentation: SUBJECTIVE: Seen and examined at bedside Feels well Still has intermittent diarrhea. Stool for c.diff negative Denies SOB, chest pain, dizziness Still requiring 2 L of oxygen to maintain sats No other complaints OBJECTIVE: Vital Signs-as noted below Physical Exam: General Appearance:Obese, no apparent distress Head: normocephalic, Atraumatic Eyes: normal inspection, EOMI, PERRL Neck: supple, Trachea midline Respiratory/Chest: Decreased breath sounds, CTA Cardiovascular: S1, S2, No murmur Abdomen/GI:Soft, Non tender, Obese,Bowel sounds present Extremities/Musculoskelatal:normal inspection, 1+ b/l edema Neurologic/Psych: grossly no focal neurological deficits Skin: normal color, warm Lab data as noted below. ASSESSMENT & PLAN: Acute on chronic diastolic heart failure. BNP moderately high with CXR evidence of CHF on presentation Recent decrease in dose of Lasix (As outpatient) Continue 40 mg IV Lasix twice daily Repeat CXR is better ECHO::Normal LV chamber size with moderate concentric LVH. * Normal LV systolic function, EF 60-65%. * No segmental left ventricular wall motion abnormalities are noted. * Grade II diastolic dysfunction. * Aortic valve sclerosis mild, without significant aortic valvular stenosis. * Mild tricuspid regurgitation. * Pulmonary hypertension is likely present with a RVSP of 40-50 mmHg, unable to accurately assess IVC size due to patient sitting upright during exam. * Mild biatrial enlargement. Monitor daily weight, I/Os, electrolytes and renal function Titrate off oxygen as able repeat CXR, BNP Improved AVOID NARCOTICS/BENZOs Continue diuretics Plan to discharge to [facility] when accepted Chronic Respiratory failure with Hypercarbia Has not been using BIPAP as advised CO2 in mildly elevated Monitor Creatinine stable Diarrhea: Stool for C.diff X2: negative Imodium PRN Started on probiotic GILLES, on CPAP. The patient has chronically elevated CO2 level. Continue CPAP QHS DM II Continue with his current insulin doses ISS, lantus monitor blood sugar levels A1C:7.9 Major depression: Continue with current medications. BPH: Continue with current medications. GERD: Continue PPI. Hyperlipidemia: Continue statin. DVT Px: SQ Lovenox Code status: full code Disposition: Plan to discharge to [facility] when accepted Follow up with in 1 week after being discharged from Rehab facility Seek immediate medical attention if your symptoms reoccur or worsen PROCEDURES: ECHO: Normal LV chamber size with moderate concentric LVH. * Normal LV systolic function, EF 60-65%. * No segmental left ventricular wall motion abnormalities are noted. * Grade II diastolic dysfunction. * Aortic valve sclerosis mild, without significant aortic valvular stenosis. * Mild tricuspid regurgitation. * Pulmonary hypertension is likely present with a RVSP of 40-50 mmHg, unable to accurately assess IVC size due to patient sitting upright during exam. * Mild biatrial enlargement. Vital Signs: Date Time Temp Pulse Resp B/P (MAP) Pulse Ox O2 Delivery O2 Flow Rate FiO2 05/05/17 11:08 69 16 96 Nasal Cannula 2.0 05/05/17 08:00 Room Air 05/05/17 07:39 36.4 69 20 131/80 (97) 95 05/05/17 06:48 63 16 75 Room Air 05/05/17 00:00 Nasal Cannula 3.0 05/04/17 23:59 36.8 75 18 116/68 (84) 91 3.0 05/04/17 21:11 72 116/68 (84) 05/04/17 18:55 76 16 92 Room Air 05/04/17 16:00 96 Nasal Cannula 2.0 05/04/17 15:27 72 18 96 Nasal Cannula 2.0 05/04/17 15:07 37.1 70 20 122/75 (91) 98 2.0 Lab Results: Results Past 24 Hours Test 05/04/17 16:30 05/04/17 17:49 05/04/17 20:11 05/05/17 05:38 Range/Units Bedside Glucose 112 122 70-99 mg/dl Prothrombin Time 10.6 9.0-12.0 SECONDS Prothromb Time International Ratio 1.0 0.9-1.1 Sodium Level 139 136-145 mmol/L Potassium Level 4.0 3.5-5.1 mmol/L Chloride Level 104 98-107 mmol/L Carbon Dioxide Level 31 21-32 mmol/L Anion Gap 4.0 3-11 mmol/L Blood Urea Nitrogen 24 7-18 mg/dl Creatinine 1.34 0.60-1.40 mg/dl Est Creatinine Clear Calc Drug Dose 63.8 ml/min Estimated GFR () 59.6 Estimated GFR (Non- 51.5 BUN/Creatinine Ratio 18.1 10-20 Random Glucose 80 70-99 mg/dl Calcium Level 8.7 8.5-10.1 mg/dl Magnesium Level 2.0 1.8-2.4 mg/dl Test 05/05/17 07:26 05/05/17 11:08 Range/Units Bedside Glucose 78 146 70-99 mg/dl Microbiology Results 05/05/17 C.difficile Toxin B Gene (PCR) - Final, Complete No C. difficile toxin B gene detected
[2017-05-05] MEDS ORDERED: FURO-85 PO (12:47)
[2017-05-05] MEDS ORDERED: IMD2X PO (12:47)
[2017-05-05] MEDS ORDERED: LCTX PO (12:47)
--- NOTE | 2017-05-05 12:49 | Discharge Instructions ---
Discharge Instructions Date of Service May 05, 2017. Admission Reason for Admission: Acute On Chronic Diastolic Chf (Congestive Heart Discharge Discharge Diagnosis / Problem: Acute on Chronic Diastolic heart failure Discharge Goals Goal(s): Decrease discomfort, Improve function Activity Recommendations Activity Limitations: resume your previous activity Exercise/Sports Limitations: as tolerated . Instructions / Follow-Up Instructions / Follow-Up Follow up with in 1 week after being discharged from Rehab facility Seek immediate medical attention if your symptoms reoccur or worsen Current Hospital Diet Patient's current hospital diet: Diabetes Type 2 Diet, AHA Diet (Heart Healthy) Discharge Diet Recommended Diet: AHA Diet (Heart Healthy), Diabetes Type 2 Diet Pending Studies Studies pending at discharge: no Laboratory Results Hemoglobin A1c Test 04/29/17 07:11 Range/Units Estimated Average Glucose 180 mg/dl Hemoglobin A1c 7.9 H 4.5-5.6 % Medical Emergencies . Who to Call and When: Medical Emergencies: If at any time you feel your situation is an emergency, please call 911 immediately. . Non-Emergent Contact Non-Emergency issues call your: Primary Care Provider Call Non-Emergent contact if: you have a fever, your pain is not controlled, your pain is worsening, your pain is unusual for you, your pain is concerning you, you have any medication questions Seek immediate medical attention if your symptoms reoccur or worsen . . "Provider Documentation" section prepared by Lion Harris. . VTE Core Measure Inpt VTE Proph given/why not?: Enoxaparin (Lovenox)SQ
[2017-05-05] MEDS: ENOXAPARIN 40 MG/0.4 ML SYR SQ SCH (20:27)
[2017-05-05] MEDS: SIMVASTATIN 20 MG TAB PO SCH (20:28)
[2017-05-05] MEDS: MICONAZOLE NITRATE POWDER 43 GM EXT PRN (20:28)
[2017-05-05] MEDS: TAMSULOSIN HCL 0.4 MG CAP PO SCH (20:29)
[2017-05-05] MEDS: INSULIN GLARGINE SOLOSTAR 100 UNITS/ML 3 ML PEN SQ SCH (20:38)
[2017-05-05] MEDS: TRAMADOL HCL 50 MG TAB PO PRN (22:48)
[2017-05-06] VITALS (8 sets, daily range): BP systolic 115–129; BP diastolic 50–78; PULSE 73–82; TEMP 36.7–36.8; O2SAT 89–100
[2017-05-06] MEDS ORDERED: DIPHENOXYLATE/ATROPINE 2.5/0.025MG TAB PO PRN (06:15)
[2017-05-06] MEDS ORDERED: DIPHENOXYLATE/ATROPINE 2.5/0.025MG TAB PO ONE (06:15)
[2017-05-06] MEDS: INSULIN ASPART 100 UNITS/ML 3 ML PEN SC SCH ×4 (06:30→21:33)
[2017-05-06] MEDS: ALBUT/IPRATROP 3MG/0.5MG NEB 3 ML VIAL INH SCH ×4 (07:09→19:06)
[2017-05-06] MEDS: METOPROLOL TARTRATE 25 MG TAB PO SCH ×2 (07:20→21:29)
[2017-05-06] MEDS: PANTOprazole SOD 40 MG TAB PO SCH (07:20)
[2017-05-06] MEDS: ASPIRIN 81 MG ECTAB PO SCH (07:21)
[2017-05-06] MEDS: MULTIVITAMIN TAB PO SCH (07:21)
[2017-05-06] MEDS: FINASTERIDE 5 MG TAB PO SCH (07:21)
[2017-05-06] MEDS: GABAPENTIN 300 MG CAP PO SCH ×2 (07:22→21:22)
[2017-05-06] MEDS: MAGNESIUM OXIDE 400 MG TAB PO SCH (07:22)
[2017-05-06] MEDS: VENLAFAXINE HCL 50 MG TAB PO SCH ×2 (07:23→21:23)
[2017-05-06] MEDS: LACTOBACILLUS ACIDOPHILUS (FLORANEX) TAB PO SCH ×3 (07:24→17:15)
[2017-05-06] MEDS: POTASSIUM CHLORIDE 20 MEQ TABCR PO SCH ×2 (07:24→21:26)
[2017-05-06] MEDS: NYSTATIN/TRIAMCINOLONE CR 15 GM TUBE EXT SCH ×2 (07:25→21:21)
[2017-05-06 07:26] LABS: BUN/CREATININE RATIO 15.1 (10-20); CALCIUM 8.6 mg/dl (8.5-10.1); CREATININE 1.55 mg/dl (0.60-1.40); MAGNESIUM 1.8 mg/dl (1.8-2.4)
[2017-05-06] MEDS: FUROSEMIDE INJ 40 MG in SYRINGE 0 ML IV SCH (08:00)
[2017-05-06] MEDS: MODAFINIL 100 MG TAB PO SCH (08:00)
[2017-05-06] MEDS: TRAMADOL HCL 50 MG TAB PO PRN ×2 (08:04→16:20)
[2017-05-06] MEDS: ACETAMINOPHEN 500 MG TAB PO PRN (11:30)
[2017-05-06] MEDS ORDERED: FURO-85 PO (11:39)
--- NOTE | 2017-05-06 11:44 | Progress Note ---
Internal Med Progress Note Date of Service: May 06, 2017. Provider Documentation: SUBJECTIVE: Seen and examined at bedside Still has diarrhea, denies abdominal pain Stool for c.diff negative X 2 Denies SOB, chest pain, dizziness Still requiring 2 L of oxygen to maintain sats No other complaints OBJECTIVE: Vital Signs-as noted below Physical Exam: General Appearance:Obese, no apparent distress Head: normocephalic, Atraumatic Eyes: normal inspection, EOMI, PERRL Neck: supple, Trachea midline Respiratory/Chest: Decreased breath sounds, CTA Cardiovascular: S1, S2, No murmur Abdomen/GI:Soft, Non tender, Obese,Bowel sounds present Extremities/Musculoskelatal:normal inspection, 1+ b/l edema Neurologic/Psych: grossly no focal neurological deficits Skin: normal color, warm Lab data as noted below. ASSESSMENT & PLAN: Acute on chronic diastolic heart failure. BNP moderately high with CXR evidence of CHF on presentation Recent decrease in dose of Lasix (As outpatient) ECHO::Normal LV chamber size with moderate concentric LVH. * Normal LV systolic function, EF 60-65%. * No segmental left ventricular wall motion abnormalities are noted. * Grade II diastolic dysfunction. * Aortic valve sclerosis mild, without significant aortic valvular stenosis. * Mild tricuspid regurgitation. * Pulmonary hypertension is likely present with a RVSP of 40-50 mmHg, unable to accurately assess IVC size due to patient sitting upright during exam. * Mild biatrial enlargement. Monitor daily weight, I/Os, electrolytes and renal function AVOID NARCOTICS/BENZOs DC IV Lasix Repeat CXR, BNP improved Will change to PO lasix 20mg BID Cr slightly increased secondary to diuretics Saturating 96% on room air, titrated off oxygen Monitor renal function Plan to discharge to [facility] when accepted Chronic Respiratory failure with Hypercarbia Has not been using BIPAP as advised CO2 in mildly elevated Monitor Creatinine stable Diarrhea: Reports taking Abx for UTI 1 week prior to admission Stool for C.diff X2: negative Lomotil PRN Continue probiotic Consider GI eval if no improvement GILLES, on CPAP. The patient has chronically elevated CO2 level. Continue CPAP QHS DM II Continue with his current insulin doses ISS, lantus monitor blood sugar levels A1C:7.9 Major depression: Continue with current medications. BPH: Continue with current medications. GERD: Continue PPI. Hyperlipidemia: Continue statin. DVT Px: Lovenox SQ Code status: full code Disposition: Plan to discharge to [facility] when accepted Follow up with in 1 week after being discharged from Rehab facility Seek immediate medical attention if your symptoms reoccur or worsen PROCEDURES: ECHO: Normal LV chamber size with moderate concentric LVH. * Normal LV systolic function, EF 60-65%. * No segmental left ventricular wall motion abnormalities are noted. * Grade II diastolic dysfunction. * Aortic valve sclerosis mild, without significant aortic valvular stenosis. * Mild tricuspid regurgitation. * Pulmonary hypertension is likely present with a RVSP of 40-50 mmHg, unable to accurately assess IVC size due to patient sitting upright during exam. * Mild biatrial enlargement. Vital Signs: Date Time Temp Pulse Resp B/P (MAP) Pulse Ox O2 Delivery O2 Flow Rate FiO2 05/06/17 11:13 76 18 96 Nasal Cannula 2.0 05/06/17 08:00 98 Nasal Cannula 2.0 05/06/17 07:10 78 18 94 Nasal Cannula 2.0 05/06/17 06:57 36.8 73 20 115/50 (71) 93 05/06/17 00:00 CPAP 05/05/17 22:56 36.8 73 20 114/48 (70) 93 Room Air 05/05/17 20:30 73 147/67 (93) 05/05/17 18:53 72 18 93 Room Air 05/05/17 16:00 98 Nasal Cannula 2.0 05/05/17 15:45 36.8 75 20 153/77 (102) 98 Nasal Cannula 2.0 05/05/17 14:22 81 18 83 Room Air Lab Results: Results Past 24 Hours Test 05/05/17 16:28 05/05/17 19:56 05/06/17 06:16 05/06/17 07:40 Range/Units Bedside Glucose 137 162 70 70-99 mg/dl Sodium Level 137 136-145 mmol/L Potassium Level 4.0 3.5-5.1 mmol/L Chloride Level 105 98-107 mmol/L Carbon Dioxide Level 27 21-32 mmol/L Anion Gap 5.0 3-11 mmol/L Blood Urea Nitrogen 23 7-18 mg/dl Creatinine 1.55 0.60-1.40 mg/dl Est Creatinine Clear Calc Drug Dose 55.1 ml/min Estimated GFR () 50.0 Estimated GFR (Non- 43.2 BUN/Creatinine Ratio 15.1 10-20 Random Glucose 70 70-99 mg/dl Calcium Level 8.6 8.5-10.1 mg/dl Magnesium Level 1.8 1.8-2.4 mg/dl
[2017-05-06] MEDS: TAMSULOSIN HCL 0.4 MG CAP PO SCH (21:23)
[2017-05-06] MEDS: ENOXAPARIN 40 MG/0.4 ML SYR SQ SCH (21:24)
[2017-05-06] MEDS: SIMVASTATIN 20 MG TAB PO SCH (21:27)
[2017-05-06] MEDS: INSULIN GLARGINE SOLOSTAR 100 UNITS/ML 3 ML PEN SQ SCH (21:36)
[2017-05-07] VITALS (8 sets, daily range): BP systolic 106–133; BP diastolic 45–73; PULSE 59–82; TEMP 36.3–37.4; O2SAT 91–97
[2017-05-07] MEDS: ACETAMINOPHEN 500 MG TAB PO PRN (02:31)
[2017-05-07 06:47] LABS: HEMATOCRIT 36.8 % (42-52); MEAN CELL VOLUME 75.1 fL (80-100); MEAN CORPUSCULAR HGB CONC 29.3 g/dl (32-36); MEAN PLATELET VOLUME 9.8 fL (7.4-10.4); PLATELET COUNT 293 K/uL (130-400); WHITE BLOOD COUNT 6.98 K/uL (4.8-10.8)
[2017-05-07] MEDS: ALBUT/IPRATROP 3MG/0.5MG NEB 3 ML VIAL INH SCH ×4 (07:05→18:54)
[2017-05-07 07:20] LABS: BUN/CREATININE RATIO 16.2 (10-20); CALCIUM 8.4 mg/dl (8.5-10.1); CREATININE 1.57 mg/dl (0.60-1.40); MAGNESIUM 1.9 mg/dl (1.8-2.4); POTASSIUM 4.1 mmol/L (3.5-5.1)
[2017-05-07] MEDS: FINASTERIDE 5 MG TAB PO SCH (07:33)
[2017-05-07] MEDS: FUROSEMIDE 20 MG TAB PO SCH ×2 (07:33→17:36)
[2017-05-07] MEDS: MULTIVITAMIN TAB PO SCH (07:33)
[2017-05-07] MEDS: PANTOprazole SOD 40 MG TAB PO SCH (07:34)
[2017-05-07] MEDS: METOPROLOL TARTRATE 25 MG TAB PO SCH ×2 (07:34→21:03)
[2017-05-07] MEDS: MAGNESIUM OXIDE 400 MG TAB PO SCH (07:34)
[2017-05-07] MEDS: VENLAFAXINE HCL 50 MG TAB PO SCH ×2 (07:34→21:04)
[2017-05-07] MEDS: GABAPENTIN 300 MG CAP PO SCH ×2 (07:34→21:03)
[2017-05-07] MEDS: NYSTATIN/TRIAMCINOLONE CR 15 GM TUBE EXT SCH ×2 (07:35→21:02)
[2017-05-07] MEDS: LACTOBACILLUS ACIDOPHILUS (FLORANEX) TAB PO SCH ×3 (07:35→17:36)
[2017-05-07] MEDS: POTASSIUM CHLORIDE 20 MEQ TABCR PO SCH ×2 (07:35→21:04)
[2017-05-07] MEDS: ASPIRIN 81 MG ECTAB PO SCH (07:35)
[2017-05-07] MEDS: MODAFINIL 100 MG TAB PO SCH (07:35)
[2017-05-07] MEDS: INSULIN ASPART 100 UNITS/ML 3 ML PEN SC SCH ×4 (08:35→21:11)
--- NOTE | 2017-05-07 17:10 | Progress Note ---
Medicine Progress Note Date & Time of Visit: May 07, 2017 at 16:54. Subjective Patient denies any complaints other than wanting to go home. He is anxious to see if he will be able to go home or go to rehab. No overnight events noted. Tolerating PO. Objective Last 8 Hrs Date Time Temp Pulse Resp B/P (MAP) Pulse Ox O2 Delivery O2 Flow Rate FiO2 05/07/17 16:04 73 16 94 Room Air 05/07/17 16:00 Nasal Cannula 2.0 05/07/17 15:28 36.3 71 22 118/65 (82) 93 Room Air 05/07/17 11:10 59 16 91 Room Air Physical Exam: GENERAL: Patient is in no acute distress. HEENT: No acute trauma, normocephalic, mucous membranes moist, no nasal congestion, no scleral icterus. Conjunctivae clear NECK: No stridor, trachea is midline. LUNGS: Clear to auscultation bilaterally, no wheeze, no rhonchi, breath sounds equal. HEART: Without murmurs gallops or rubs, regular rate and rhythm. ABDOMEN: Soft, nontender, bowel sounds positive, obese EXTREMITIES: No cyanosis or edema NEUROLOGIC: Oriented x 3, no acute motor or sensory deficits, no focal weakness. SKIN: No rash, no jaundice, no diaphoresis. Stasis skin changes in B/L LE Laboratory Results: Last 24 Hours Test 05/06/17 18:10 05/06/17 20:06 05/06/17 21:20 05/07/17 06:12 Bedside Glucose 117 mg/dl 111 mg/dl 123 mg/dl White Blood Count 6.98 K/uL Red Blood Count 4.90 M/uL Hemoglobin 10.8 g/dL Hematocrit 36.8 % Mean Corpuscular Volume 75.1 fL Mean Corpuscular Hemoglobin 22.0 pg Mean Corpuscular Hemoglobin Concent 29.3 g/dl RDW Standard Deviation 49.2 fL RDW Coefficient of Variation 18.0 % Platelet Count 293 K/uL Mean Platelet Volume 9.8 fL Sodium Level 137 mmol/L Potassium Level 4.1 mmol/L Chloride Level 104 mmol/L Carbon Dioxide Level 28 mmol/L Anion Gap 5.0 mmol/L Blood Urea Nitrogen 25 mg/dl Creatinine 1.57 mg/dl Est Creatinine Clear Calc Drug Dose 54.4 ml/min Estimated GFR () 49.2 Estimated GFR (Non- 42.5 BUN/Creatinine Ratio 16.2 Random Glucose 87 mg/dl Calcium Level 8.4 mg/dl Magnesium Level 1.9 mg/dl Test 05/07/17 08:08 05/07/17 11:38 05/07/17 16:26 Bedside Glucose 84 mg/dl 104 mg/dl 133 mg/dl Assessment & Plan ACUTE ON CHRONIC DIASTOLIC HEART FAILURE EXACERBATION: -on admission presented with moderately high BNP and radiographic evidence of CHF -had recent decrease in dose of Lasix (As outpatient) -TTE Report: * Normal LV chamber size with moderate concentric LVH. * Normal LV systolic function, EF 60-65%. * No segmental left ventricular wall motion abnormalities are noted. * Grade II diastolic dysfunction. * Aortic valve sclerosis mild, without significant aortic valvular stenosis. * Mild tricuspid regurgitation. * Pulmonary hypertension is likely present with a RVSP of 40-50 mmHg, unable to accurately assess IVC size due to patient sitting upright during exam. * Mild biatrial enlargement. -continue daily weights, Is&Os, electrolytes and renal function -was on IV Lasix, this was stopped when renal function was trending up -a repeat CXR and repeat BNP were improved -on PO lasix 20mg BID -Cr slightly increased secondary to diuretics, will continue to monitor closely -maintaining O2 sats on room air, titrated off supplemental oxygen CHRONIC RESPIRATORY FAILURE with Hypercarbia: -has continued to have lack of compliance with BIPAP -CO2 in mildly elevated -AVOID NARCOTICS/BENZOs due to recurrent respiratory failure and comorbidities DIARRHEA: -reports taking antibiotics recently for UTI (1 week prior to admission) -Stool for C.diff X2: negative -Lomotil PRN -continue probiotic -Consider GI eval if no improvement GILLES, on CPAP. -patient has chronically elevated CO2 level -continue CPAP QHS -has issues with outpatient compliance with CPAP use DM TYPE II: -continue with home insulin doses -lantus + correction scale insulin -monitor BSG AC and HS -HbA1c: 7.9% MAJOR DEPRESSION: -continue with current medications BPH: -continue finasteride and tamsulosin GERD: -continue PPI HYPERLIPIDEMIA: -continue statin. DISPO: Medically stable, awaiting re-evaluation by PT/OT and possible need for rehab Current Inpatient Medications: Current Inpatient Medications Medications (Trade) Dose Ordered Sig/Bj Route Start Time Stop Time Status Last Admin Dose Admin Acetaminophen (Tylenol Tab) 1,000 mg Q6 PRN PO 04/28/17 09:45 05/28/17 09:44 05/07/17 02:31 1,000 MG Aspirin (Ecotrin Tab) 81 mg DAILY PO 04/29/17 09:00 05/29/17 08:59 05/07/17 07:35 81 MG Finasteride (Proscar Tab) 5 mg QAM PO 04/29/17 09:00 05/29/17 08:59 05/07/17 07:33 5 MG Folic Acid (Folvite Tab) 1 mg DAILY PO 04/29/17 09:00 05/29/17 08:59 05/07/17 07:34 1 MG Gabapentin (Neurontin Cap) 300 mg BID PO 04/28/17 21:00 05/28/17 20:59 05/07/17 07:34 300 MG Insulin Glargine (Lantus Solostar Pen) 25 units QPM SQ 04/28/17 21:00 05/28/17 20:59 05/06/17 21:36 25 UNITS Magnesium Oxide (Mag-Ox Tab) 400 mg DAILY PO 04/29/17 09:00 05/29/17 08:59 05/07/17 07:34 400 MG Metoprolol Tartrate (Lopressor Tab) 12.5 mg BID PO 04/28/17 21:00 05/28/17 20:59 05/07/17 07:34 12.5 MG Multivitamins (Multivitamin Tab) 1 tab DAILY PO 04/29/17 09:00 05/29/17 08:59 05/07/17 07:33 1 TAB Nystatin/ Triamcinolone Acetonide (Mycogen II Crm) 1 appln BID EXT 04/28/17 21:00 05/28/17 20:59 05/07/17 07:35 1 APPLN Simvastatin (Zocor Tab) 20 mg HS PO 04/28/17 21:00 05/28/17 20:59 05/06/17 21:27 20 MG Tamsulosin HCl (Flomax Cap) 0.4 mg HS PO 04/28/17 21:00 05/28/17 20:59 05/06/17 21:23 0.4 MG Venlafaxine HCl (effeXOR TAB) 75 mg BID PO 04/28/17 21:00 05/28/17 20:59 05/07/17 07:34 75 MG Pantoprazole Sodium (Protonix Tab) 40 mg QAM PO 04/29/17 09:00 05/29/17 08:59 05/07/17 07:34 40 MG Miconazole Nitrate (Desenex Powder) 1 appln UD PRN EXT 04/28/17 13:30 05/28/17 13:29 05/05/17 20:28 1 APPLN Insulin Aspart (novoLOG ASPART) SLIDING SCALE G... ACHS SC 04/28/17 21:00 05/28/17 20:59 05/07/17 12:37 2 UNITS Menthol (Nice Shae) 1 shae PRN PRN PO 04/30/17 12:30 05/30/17 12:29 Albuterol/ Ipratropium (Duoneb) 3 ml QIDR INH 04/30/17 16:00 05/30/17 15:59 05/07/17 16:03 3 ML Lactobacillus Acidophilus (Floranex Tab) 4 tab TIDM PO 05/04/17 17:00 06/03/17 16:59 05/07/17 11:43 4 TAB Enoxaparin Sodium (Lovenox Inj) 40 mg HS SQ 05/04/17 19:00 06/03/17 18:59 05/06/17 21:24 40 MG Tramadol HCl (Ultram Tab) 50 mg BID PRN PO 05/04/17 17:30 06/03/17 17:29 05/06/17 16:20 50 MG Diphenoxylate HCl/ Atropine (Lomotil Tab) 1 tab Q6H PRN PO 05/06/17 06:15 06/05/17 06:14 Modafinil (proVIGIL TAB) 100 mg QAM PO 05/06/17 08:00 06/05/17 07:59 05/07/17 07:35 100 MG Furosemide (Lasix Tab) 20 mg BID17 PO 05/07/17 09:00 06/06/17 08:59 05/07/17 07:33 20 MG Potassium Chloride (Klor-Con Tab) 20 meq BID PO 05/06/17 20:00 05/28/17 20:59 12/26/17 07:35 20 MEQ
[2017-05-07] MEDS: TAMSULOSIN HCL 0.4 MG CAP PO SCH (21:06)
[2017-05-07] MEDS: ENOXAPARIN 40 MG/0.4 ML SYR SQ SCH (21:06)
[2017-05-07] MEDS: MICONAZOLE NITRATE POWDER 43 GM EXT PRN (21:07)
[2017-05-07] MEDS: SIMVASTATIN 20 MG TAB PO SCH (21:10)
[2017-05-07] MEDS: INSULIN GLARGINE SOLOSTAR 100 UNITS/ML 3 ML PEN SQ SCH (21:34)
[2017-05-07] MEDS: TRAMADOL HCL 50 MG TAB PO PRN (21:45)
[2017-05-08] MEDS: TRAMADOL HCL 50 MG TAB PO PRN (06:28)
[2017-05-08 07:16] VITALS: PULSE 77; O2SAT 95
[2017-05-08] MEDS: ALBUT/IPRATROP 3MG/0.5MG NEB 3 ML VIAL INH SCH ×2 (07:16→11:31)
[2017-05-08 07:24] VITALS: BP 155/77; PULSE 80; TEMP 36.7; O2SAT 100
[2017-05-08] MEDS: FINASTERIDE 5 MG TAB PO SCH (07:47)
[2017-05-08] MEDS: MODAFINIL 100 MG TAB PO SCH (07:47)
[2017-05-08] MEDS: NYSTATIN/TRIAMCINOLONE CR 15 GM TUBE EXT SCH (07:47)
[2017-05-08] MEDS: POTASSIUM CHLORIDE 20 MEQ TABCR PO SCH (07:48)
[2017-05-08] MEDS: MAGNESIUM OXIDE 400 MG TAB PO SCH (07:48)
[2017-05-08] MEDS: GABAPENTIN 300 MG CAP PO SCH (07:48)
[2017-05-08] MEDS: PANTOprazole SOD 40 MG TAB PO SCH (07:48)
[2017-05-08] MEDS: FUROSEMIDE 20 MG TAB PO SCH (07:48)
[2017-05-08] MEDS: MULTIVITAMIN TAB PO SCH (07:48)
[2017-05-08] MEDS: METOPROLOL TARTRATE 25 MG TAB PO SCH (07:48)
[2017-05-08] MEDS: LACTOBACILLUS ACIDOPHILUS (FLORANEX) TAB PO SCH ×2 (07:49→11:35)
[2017-05-08] MEDS: VENLAFAXINE HCL 50 MG TAB PO SCH (07:49)
[2017-05-08] MEDS: ASPIRIN 81 MG ECTAB PO SCH (07:49)
[2017-05-08 07:52] LABS: BUN/CREATININE RATIO 14.7 (10-20); CALCIUM 8.6 mg/dl (8.5-10.1); CREATININE 1.73 mg/dl (0.60-1.40); MAGNESIUM 1.9 mg/dl (1.8-2.4); POTASSIUM 4.4 mmol/L (3.5-5.1)
[2017-05-08] MEDS: INSULIN ASPART 100 UNITS/ML 3 ML PEN SC SCH ×2 (08:38→12:26)
[2017-05-08 11:31] VITALS: PULSE 75; O2SAT 97
[2017-05-08 14:01] VITALS: BP 155/77; PULSE 75; TEMP 36.7; O2SAT 97
--- NOTE | 2017-05-08 14:02 | Discharge Summary ---
Discharge Summary Date of Service May 08, 2017. Discharge Summary Admission Date: Apr 28, 2017 at 09:42 Discharge Date: May 08, 2017 Discharge Disposition: Home with services Principal Diagnosis: Diastolic CHF exacerbation, RENEA Pending Studies/Follow-Up: Repeat BMP at the follow up appointment with Primary care physician Medication Reconciliation New Medications: Lactobacillus Acidophilus (Floranex) 1 Tab Tab 4 TAB PO TIDM for 10 Days, #30 TAB Loperamide Hcl (Imodium) 2 Mg Cap 2 MG PO BID PRN for Diarrhea for 7 Days, #14 CAP Changed Medications: Furosemide (Lasix) 20 Mg Tab 20 MG PO BID, #30 TAB (Changed from: UD; Removed Instructions) Continued Medications: Acetaminophen (Tylenol) 500 Mg Tab 1000 MG PO Q6 PRN for Headache or Pain, TAB Aspirin (Aspirin Ec) 81 Mg Tab 81 MG PO DAILY Finasteride (Proscar) 5 Mg Tab 5 MG PO QAM, 0 Refills Folic Acid (Folvite) 1 Mg Tab 1 MG PO DAILY, TAB Gabapentin (Gabapentin) 300 Mg Cap 300 MG PO BID for 15 Days, #30 CAP 0 Refills Insulin Aspart (Novolog Flexpen) 100 Units/Ml Inj 10 UNITS SQ TIDM PLUS SLIDING SCALE Insulin Glargine (Lantus Solostar) 100 Unit/Ml Inj 25 UNITS SQ QPM, PEN Magnesium Oxide (Mag-Ox) 400 Mg Tab 400 MG PO DAILY for 7 Days, #7 TAB Metolazone (Zaroxolyn) 5 Mg Tab 5 MG PO 2XWK 1/2 hour prior to AM dose of Furosemide. PATIENT TAKES AND Metoprolol Tartrate (Lopressor) (Lopressor) 25 Mg Tab 12.5 MG PO BID, TAB Modafinil (Provigil) 100 Mg Tab 100 MG PO QAM for 15 Days Multivitamin (Multivitamin) Tab 1 TAB PO DAILY, TAB Nystatin-Triamcinolone (Nystatin/Triamcinolone) 1 Cre Cre 1 APPLN TOP BID, #15 GM 1 Refill Apply to groin and perineal area twice daily. Omeprazole (Prilosec) 20 Mg Capcr 20 MG PO QAM Potassium Ext Rel (Klor-Con) 20 Meq Tabcr 40 MEQ PO BID Simvastatin (Zocor) 80 Mg Tab 40 MG PO QPM, TAB Tamsulosin HCl (Tamsulosin HCl) 0.4 Mg Cap 1 CAP PO HS Venlafaxine Hcl (Effexor) 75 Mg Tab 75 MG PO BID Admission Information HPI (per Admitting provider): CHIEF COMPLAINT: Shortness of breath, which is worse for the last 2 days. HISTORY OF PRESENT COMPLAINT: Evelio is a 76-year-old male with significant past history including diastolic heart failure, type 2 diabetes, obesity, obstructive sleep apnea on CPAP, and major depressive disorder, apparently has been complaining of more shortness of breath for the last 1 week. Apparently, his Lasix dose has been decreased recently and the shortness of breath got worsened over the last 2 days that he was brought into the Emergency Room. He denies history of any dry cough, any chest pain, any palpitation. Does not have any abdominal pain, any nausea and/or vomiting. He was a little drowsy on arrival to the Emergency Room and apparent test came back positive for CHF as far as chest x-ray. His pH level is a little bit high as well. He got a dose of Lasix and the condition was getting better. Also, he was put on BiPAP and with that he was feeling better. Given the history of CHF and ongoing symptoms, he was admitted to telemetry unit for continuation of care. PAST MEDICAL HISTORY: Significant for chronic diastolic heart failure; major depressive disorder; type 2 diabetes, on insulin; obesity; generalized anxiety disorder; hyperlipidemia; GERD; sleep apnea, on CPAP; and also history of restless leg syndrome. PAST SURGICAL HISTORY: tonsillectomy as a child, and cataract surgery. FAMILY HISTORY: Significant that brother has diabetes. Father has diabetes. Brother also has heart problems. Father did have heart disease. Father of heart disease as well . SOCIAL HISTORY: He is . He has 2 children. He is a former smoker, quit in 2004 with 30 pack-year history of smoking, does not use any alcohol, does not use any drugs and he has been reasonably ambulant. ALLERGIES: HE IS ALLERGIC TO HYDROMORPHONE, OXYCODONE AND PROPOXYPHENE. MEDICATIONS: As an outpatient, he has been on furosemide 40 mg b.i.d., metolazone 5 mg 2 times a week, Tylenol 1 gram q. 6 hourly p.r.n., aspirin 81 mg daily, finasteride 5 mg daily, folic acid 1 mg daily, gabapentin 300 mg b.i.d., NovoLog 10 units subQ 3 times daily, Lantus 25 units at night, magnesium oxide 400 mg BID, Lopressor 25 mg tablet 12.5 mg b.i.d., Provigil 100 mg q.a.m., multivitamin 1 tablet daily, nystatin as directed, omeprazole 20 mg daily, potassium 20 mEq tablet 40 b.i.d., simvastatin 10 mg tablets 20 mg at night, tamsulosin 0.4 mg at night and Effexor 75 mg tablet b.i.d. REVIEW OF SYSTEMS: Other systemic review unremarkable except those mentioned in history of present complaint. CENTRAL NERVOUS SYSTEM: No headache, no blurred vision, no murmur. EXTREMITIES: No weakness involving any side. RESPIRATORY: No chest pain or palpitation, but does have shortness of breath. No cough or any sputum. GASTROINTESTINAL: No abdominal distention, but some bloating. No nausea, no vomiting, no abdominal pain. GENITOURINARY: Denies having any problem with urine or bowel habit. MUSCULOSKELETAL: Does have minimal swelling of the legs with some redness, but no definite cellulitis and no generalized lymphadenopathy or rash. PHYSICAL EXAMINATION: GENERAL: On examination in the Emergency Room, he was on BiPAP. He was talking normally. VITAL SIGNS: Temperature 36.6, pulse normal, blood pressure 192/91, saturation 99% on RA. HEENT: Unremarkable. NECK: Supple. No JVD, no bruit. CHEST: Decreased breath sounds on both sides with minimal crackles at the bases. HEART: Regular. ABDOMEN: Distended, soft, benign bowel sounds present. EXTREMITIES: 1+ edema bilaterally, chronic skin changes with a few dry skin lesions, but no evidence of any acute cellulitis. CENTRAL NERVOUS SYSTEM: He is alert, awake, and oriented, generally weak, but no focal neuro deficit. Hospital Course ACUTE ON CHRONIC DIASTOLIC HEART FAILURE EXACERBATION: -on admission presented with moderately high BNP and radiographic evidence of CHF -had recent decrease in dose of Lasix (As outpatient) -TTE Report: * Normal LV chamber size with moderate concentric LVH. * Normal LV systolic function, EF 60-65%. * No segmental left ventricular wall motion abnormalities are noted. * Grade II diastolic dysfunction. * Aortic valve sclerosis mild, without significant aortic valvular stenosis. * Mild tricuspid regurgitation. * Pulmonary hypertension is likely present with a RVSP of 40-50 mmHg, unable to accurately assess IVC size due to patient sitting upright during exam. * Mild biatrial enlargement. -continue daily weights, Is&Os, electrolytes and renal function -was on IV Lasix, this was stopped when renal function was trending up -a repeat CXR and repeat BNP were improved -on PO lasix 20mg BID -Cr slightly increased secondary to diuretics, will continue to monitor closely -maintaining O2 sats on room air, titrated off supplemental oxygen CHRONIC RESPIRATORY FAILURE with Hypercarbia: -has continued to have lack of compliance with BIPAP -CO2 in mildly elevated -AVOID NARCOTICS/BENZOs due to recurrent respiratory failure and comorbidities DIARRHEA: -reports taking antibiotics recently for UTI (1 week prior to admission) -Stool for C.diff X2: negative -Lomotil PRN -continue probiotic -Consider GI eval if no improvement GILLES, on CPAP. -patient has chronically elevated CO2 level -continue CPAP QHS -has issues with outpatient compliance with CPAP use DM TYPE II: -continue with home insulin doses -lantus + correction scale insulin -monitor BSG AC and HS -HbA1c: 7.9% MAJOR DEPRESSION: -continue with current medications BPH: -continue finasteride and tamsulosin GERD: -continue PPI HYPERLIPIDEMIA: -continue statin. PHYSICAL EXAM ON DAY OF DISCHARGE: GENERAL: Patient is in no acute distress. HEENT: No acute trauma, normocephalic atraumatic, mucous membranes moist, no nasal congestion, no scleral icterus. NECK: No stridor, trachea is midline. LUNGS: Clear to auscultation bilaterally, no wheeze, no rhonchi, breath sounds equal. HEART: Without murmurs gallops or rubs, regular rate and rhythm. ABDOMEN: Soft, nontender, bowel sounds positive, obese EXTREMITIES: No cyanosis or edema NEUROLOGIC: Oriented x 3, no acute motor or sensory deficits, no focal weakness. SKIN: No rash, no jaundice, no diaphoresis. B/L LE with dry healing wounds on shins; no erythema or drainage noted Total time spent on discharge = 37 This includes examination of the patient, discharge planning, medication reconciliation, and communication with other providers. Discharge Instructions See patient instructions
== END 2017-05-08 14:40 | disposition home health service (06) | DRG 292 ==
LOC: EDBD 07:01 → C.EDA 07:04 → C.2T 09:42 → ENRESERV 09:58 → C.2T 20:50 → ENRESERV 05-01 12:13 → EDBEDREQ 05-01 12:15 → C.MS2W 05-01 12:38 → C.MS4W 05-03 18:25
PROVIDERS: ADMIT Internal Medicine; ATTEND Internal Medicine
DX: I50.33 Acute on chronic diastolic (congestive) heart failure (principal); J96.12 Chronic respiratory failure with hypercapnia; Z68.41 Body mass index [BMI] 40.0-44.9, adult; N17.9 Acute kidney failure, unspecified; E78.5 Hyperlipidemia, unspecified; F41.9 Anxiety disorder, unspecified; N40.0 Benign prostatic hyperplasia without lower urinary tract symptoms; F32.9 Major depressive disorder, single episode, unspecified; G47.33 Obstructive sleep apnea (adult) (pediatric); K21.9 Gastro-esophageal reflux disease without esophagitis; E66.9 Obesity, unspecified; H54.8 Legal blindness, as defined in USA; Z79.82 Long term (current) use of aspirin; Z79.4 Long term (current) use of insulin; Z87.891 Personal history of nicotine dependence; Z83.3 Family history of diabetes mellitus; Z82.49 Family history of ischemic heart disease and other diseases of the circulatory system; Z83.79 Family history of other diseases of the digestive system

== ENCOUNTER 2017-06-03 13:48 | Inpatient (IN) | payer OTHER ==
[~2017-06-03] VITALS: Ht 177.8 cm; Wt 119.9 kg
[~2017-06-03 13:48] MED LIST changes: +FURO-85 PO; +IMD2X PO; +LCTX PO; -LSX40 PO; -SIMV40TA2 PO; +SIMV80TA2 PO
--- NOTE | 2017-06-03 14:15 | EMERGENCY ROOM VISIT NOTE ---
History Report prepared by Tr: Helen Barbour Under the Supervision of: Brenda NunesO. First contact with patient: 14:02 Chief Complaint: SHORTNESS OF BREATH Stated Complaint: SOB History of Present Illness The patient is a 76 year old male who presents to the Emergency Room with complaints of constant shortness of breath beginning a couple days ago. He reports his shortness of breath worsens with movement and laying flat. The patient notes redness to his legs and lower abdomen which he states are from "them rubbing together". The patient also notes a dry cough and abdominal bloating. The patient has a history of congestive heart failure. He takes a water pill daily. He denies missing a water pill but states he has been eating salty food recently. The patient does not believe his legs are more swollen than his baseline but he states his said his legs are "puffy". The patient does not wear nasal oxygen at home. The patient had physical therapy this morning and states his oxygen saturation was 82 there. Pt denies headache, runny nose, nasal congestion, change in vision, fevers, chest pain, nausea, vomiting, diarrhea, pain with urination, and melena. Source of History: patient Onset: a couple days ago Position: other (generalized) Quality: other (shortness of breath) Timing: constant Modifying Factors (Worsening): movement, other (laying flat) Associated Symptoms: + SOB, No fevers, No headache, No chest pain, No nausea , No vomiting Review of Systems See HPI for pertinent positives & negatives. A total of 10 systems reviewed and were otherwise negative. Past Medical & Surgical Medical Problems: (1) Anxiety (2) Asthma, cough variant (3) Benign prostatic hyperplasia (4) Depression (5) Diabetes mellitus type 2 (6) Diabetic neuropathy (7) Diastolic heart failure (8) Dyslipidemia (9) Essential hypertension (10) Gastroesophageal reflux disease (11) Legal blindness (12) Morbid obesity (13) Nocturnal hypoxemia (14) Obesity hypoventilation syndrome (15) Peripheral venous insufficiency (16) Sleep apnea (17) UTI (urinary tract infection) Surgical Problems: (1) S/P cataract surgery (2) S/p eyelid surgery (3) S/P foot surgery, left (4) S/P panniculectomy (5) S/P tonsillectomy Family History Diabetes mellitus MOTHER BROTHER GRANDMOTHER FH: CAD (coronary artery disease) FATHER (CABG) FH: CHF (congestive heart failure) MOTHER BROTHER GI disorder Hypertension MOTHER Social History Smoking Status: Never Smoker Alcohol Use: none Marital Status: Housing Status: lives with family Current/Historical Medications Scheduled Aspirin (Aspirin Ec), 81 MG PO DAILY Finasteride (Proscar), 5 MG PO QAM Folic Acid (Folvite), 1 MG PO DAILY Furosemide (Lasix), 20 MG PO BID Gabapentin (Gabapentin), 300 MG PO BID Insulin Aspart (Novolog Flexpen), 10 UNITS SQ TIDM Insulin Glargine (Lantus Solostar), 25 UNITS SQ QPM Magnesium Oxide (Mag-Ox), 400 MG PO DAILY Metolazone (Zaroxolyn), 5 MG PO 2XWK Metoprolol Tartrate (Lopressor) (Lopressor), 12.5 MG PO BID Modafinil (Provigil), 100 MG PO QAM Multivitamin (Multivitamin), 1 TAB PO DAILY Nystatin-Triamcinolone (Nystatin/Triamcinolone), 1 APPLN TOP BID Omeprazole (Prilosec), 20 MG PO QAM Potassium Ext Rel (Klor-Con), 20 MEQ PO BID Simvastatin (Zocor), 40 MG PO QPM Tamsulosin HCl (Tamsulosin HCl), 1 CAP PO HS Venlafaxine Hcl (Effexor), 75 MG PO BID Scheduled PRN Acetaminophen (Tylenol), 1,000 MG PO Q6 PRN for Headache or Pain Loperamide Hcl (Imodium), 2 MG PO BID PRN for Diarrhea Allergies Coded Allergies: Hydromorphone (Verified Adverse Reaction, Severe, DELIRIUM, UNRESPONSIVENESS, 06/03/17) UNRESPONSIVENESS Oxycodone (Verified Adverse Reaction, Unknown, Trouble coming off, 06/03/17 ) Repoted by , NOT ALLERGIC TO THEM Propoxyphene (Verified Adverse Reaction, Unknown, Trouble coming off of Darvocet., 06/03/17) Reported by Physical Exam Vital Signs Date Time Temp Pulse Resp B/P (MAP) Pulse Ox O2 Delivery O2 Flow Rate FiO2 06/03/17 15:54 63 20 106/52 100 Nasal Cannula 3.0 06/03/17 14:59 73 06/03/17 14:46 94 Nasal Cannula 2.0 1/22/18 14:45 71 16 123/75 85 Room Air 06/03/17 14:08 36.4 70 16 116/48 93 Room Air Physical Exam GENERAL: alert, well appearing, well nourished, no distress, non-toxic EYE EXAM: normal conjunctiva, PERRL and EOM's grossly intact OROPHARYNX: edentulous, no exudate, no erythema, lips, buccal mucosa, and tongue normal and mucous membranes are moist NECK: supple, no nuchal rigidity, no adenopathy, non-tender LUNGS: Decreased breath sounds. HEART: no murmurs, S1 normal and S2 normal ABDOMEN: Obese abdomen, soft, non-tender, normo-active bowel sounds, no masses, no rebound or guarding. BACK: Back is symmetrical on inspection and there is no deformity, no midline tenderness, no CVA tenderness. SKIN: no rashes and no bruising UPPER EXTREMITIES: upper extremities are grossly normal. LOWER EXTREMITIES: 2+ pitting edema bilateral lower extremities. Erythema bilateral lower extremities up to proximal bilateral lower extremities, erythema in bilateral inguinal folds consistent with yeast infection no evidence of peroneal involvement. NEURO EXAM: Normal sensorium, cranial nerves II-XII grossly intact, normal speech, no gross weakness of arms, no gross weakness of legs. Medical Decision & Procedures ER Provider Diagnostic Interpretation: Radiology results have been interpreted by the radiologist and reviewed by me. SINGLE VIEW CHEST FINDINGS: An AP, portable, upright chest radiograph is compared to study dated 05/02/2017. The examination is degraded by portable technique and patient rotation. The heart is enlarged and there is atherosclerotic calcification of the thoracic aorta. There is pulmonary vascular congestion. No airspace consolidation or large pleural effusion is identified. Bibasilar atelectasis is observed. No pneumothorax is seen. The skeletal structures are osteopenic. Advanced arthritic change is present in the shoulders. There is a right shoulder dislocation. IMPRESSION: 1. Cardiomegaly with evidence of congestive failure. 2. There is no airspace consolidation or large pleural effusion. 3. Right shoulder dislocation. Electronically signed by: Porfirio Santillan M.D. Laboratory Results 06/03/17 13:55 Red Blood Count 3.94, Mean Corpuscular Volume 76.6, Mean Corpuscular Hemoglobin 22.1, Mean Corpuscular Hemoglobin Concent 28.8, Mean Platelet Volume 9.8, Neutrophils (%) (Auto) 57.8, Lymphocytes (%) (Auto) 23.5, Monocytes (%) (Auto) 10.5, Eosinophils (%) (Auto) 7.7, Basophils (%) (Auto) 0.3, Neutrophils # (Auto ) 3.48, Lymphocytes # (Auto) 1.41, Monocytes # (Auto) 0.63, Eosinophils # (Auto ) 0.46, Basophils # (Auto) 0.02 06/03/17 13:55 Test 06/03/17 13:55 06/03/17 14:25 06/03/17 14:33 White Blood Count 6.01 K/uL (4.8-10.8) Red Blood Count 3.94 M/uL (4.7-6.1) Hemoglobin 8.7 g/dL (14.0-18.0) Hematocrit 30.2 % (42-52) Mean Corpuscular Volume 76.6 fL (80-100) Mean Corpuscular Hemoglobin 22.1 pg (25-34) Mean Corpuscular Hemoglobin Concent 28.8 g/dl (32-36) Platelet Count 297 K/uL (130-400) Mean Platelet Volume 9.8 fL (7.4-10.4) Neutrophils (%) (Auto) 57.8 % Lymphocytes (%) (Auto) 23.5 % Monocytes (%) (Auto) 10.5 % Eosinophils (%) (Auto) 7.7 % Basophils (%) (Auto) 0.3 % Neutrophils # (Auto) 3.48 K/uL (1.4-6.5) Lymphocytes # (Auto) 1.41 K/uL (1.2-3.4) Monocytes # (Auto) 0.63 K/uL (0.11-0.59) Eosinophils # (Auto) 0.46 K/uL (0-0.5) Basophils # (Auto) 0.02 K/uL (0-0.2) RDW Standard Deviation 53.2 fL (36.4-46.3) RDW Coefficient of Variation 18.9 % (11.5-14.5) Immature Granulocyte % (Auto) 0.2 % Immature Granulocyte # (Auto) 0.01 K/uL (0.00-0.02) Hypochromasia PRESENT Anisocytosis PRESENT Microcytosis PRESENT Absolute Reticulocyte Count 0.09 10^6/uL (0.02-0.10) Percent Reticulocyte Count 2.2 % (0.5-2.0) Prothrombin Time 10.3 SECONDS (9.0-12.0) Prothromb Time International Ratio 1.0 (0.9-1.1) Anion Gap -2.0 mmol/L (3-11) Est Creatinine Clear Calc Drug Dose 75.7 ml/min Estimated GFR () 75.7 Estimated GFR (Non- 65.3 BUN/Creatinine Ratio 13.1 (10-20) Calcium Level 8.2 mg/dl (8.5-10.1) Magnesium Level 2.2 mg/dl (1.8-2.4) Iron Level 21 mcg/dl (35-175) Total Iron Binding Capacity 307 mcg/dl (250-450) Transferrin 246 mg/dl (200-360) Transferrin % Saturation 6 % (20-50) Ferritin 21.1 ng/ml (8.0-388.0) Total Bilirubin 0.5 mg/dl (0.2-1) Aspartate Amino Transf (AST/SGOT) 16 U/L (15-37) Alanine Aminotransferase (ALT/SGPT) 14 U/L (12-78) Alkaline Phosphatase 92 U/L (45-117) Pro-B-Type Natriuretic Peptide 1841 pg/ml (0-900) Total Protein 6.5 gm/dl (6.4-8.2) Albumin 2.6 gm/dl (3.4-5.0) Globulin 3.9 gm/dl (2.5-4.0) Albumin/Globulin Ratio 0.7 (0.9-2) Influenza Type A Antigen Neg for Influ A (NEG) Influenza Type B Antigen Neg for Influ B (NEG) Arterial Blood pH 7.41 (7.35-7.45) Arterial Blood Partial Pressure CO2 55 mmHg (35-46) Arterial Blood Partial Pressure O2 56 mm/Hg (80-95) Arterial Blood HCO3 34 mmol/L (19-24) Arterial Blood Oxygen Saturation 84.6 % (90-95) Arterial Blood Base Excess 8.3 mEq/L (-9-1.8) Arterial Blood Gas Delivery ROOM AIR Khoa Test POS (POS) Laboratory results per my review. Medications Administered Medications (Trade) Dose Ordered Sig/Bj Route Start Time Stop Time Status Last Admin Dose Admin Furosemide (Lasix Inj) 40 mg NOW STAT IV 06/03/17 15:28 06/03/17 15:29 DC 06/03/17 15:54 40 MG ECG Indication: SOB/dyspnea Rate (beats per minute): 71 Rhythm: sinus rhythm Findings: 1st degree AV block, no acute ischemic change, other (normal axis, normal intervals. ) Change: EKG interpreted me. ED Course 1405: The patient was evaluated in room C6. A complete history and physical exam was performed. 1441: When the patients oxygen turned off the patients oxygen saturation dropped to 86 percent. 1528: Ordered Lasix Inj 40 mg IV. 1534: I reviewed the patient's case with Shayy Johnson. She will evaluate the patient for further management. Medical Decision Differential diagnosis: Etiologies such as infections, reactive airway disease, pneumonia, pneumothorax , COPD, CHF, cardiac ischemia, pulmonary embolism, musculoskeletal, gastrointestinal, as well as others were entertained. Patient here with likely acute on chronic CHF. Patient admits to noncompliance with salt restriction in his diet, denies he has missed any medications. Have concerns about patient's ability to care for himself at home given presentation. Erythema noted on legs was not warm to touch, patient states is chronic, I do not suspect acute evolving cellulitis. Patient also is noted yeast infections bilateral inguinal folds. No other symptoms to suggest acute infectious etiology. She has oxygen saturations steady here while on oxygen by nasal cannula. Patient does not wear oxygen at home. Patient given additional Lasix dosing here. Anemia appears chronic and no significant change compared to prior, patient denies any recent bleeding. Doubt ACS. Patient with mild chronic hypercapnia. Medication Reconcilliation Current Medication List: was personally reviewed by nv Blood Pressure Screening Patient's blood pressure: Normal blood pressure Consults Time Called: 1529 Consulting Physician: Shayy Johnson Returned Call: 1534 I reviewed the patient's case with Shayy Johnson. She will evaluate the patient for further management. Impression Primary Impression: Dyspnea Additional Impressions: Hypoxia CHF (congestive heart failure) Morbid obesity Anemia Scribe Attestation The scribe's documentation has been prepared under my direction and personally reviewed by me in its entirety. I confirm that the note above accurately reflects all work, treatment, procedures, and medical decision making performed by me. Departure Information Dispostion Being Evaluated By Hospitalist Syed Pompa D.O. (PCP) Patient Instructions My [facility] Problem Qualifiers Primary Impression: Dyspnea Dyspnea type: shortness of breath Qualified Codes: R06.02 - Shortness of breath Additional Impressions: CHF (congestive heart failure) Congestive heart failure type: combined Congestive heart failure chronicity: acute on chronic Qualified Codes: I50.43 - Acute on chronic combined systolic (congestive) and diastolic (congestive) heart failure Anemia Anemia type: unspecified type Qualified Codes: D64.9 - Anemia, unspecified
[2017-06-03 14:40] LABS: ALBUMIN 2.6 gm/dl (3.4-5.0); ALT/SGPT 14 U/L (12-78); AST/SGOT 16 U/L (15-37); BLOOD UREA NITROGEN 14 mg/dl (7-18); CALCIUM 8.2 mg/dl (8.5-10.1); CARBON DIOXIDE 39 mmol/L (21-32); GLUCOSE 157 mg/dl (70-99); POTASSIUM 4.2 mmol/L (3.5-5.1); SODIUM 138 mmol/L (136-145)
--- NOTE | 2017-06-03 14:40 | DIAGNOSTIC IMAGING REPORT ---
SINGLE VIEW CHEST CLINICAL HISTORY: Dyspnea. FINDINGS: An AP, portable, upright chest radiograph is compared to study dated 05/02/2017. The examination is degraded by portable technique and patient rotation. The heart is enlarged and there is atherosclerotic calcification of the thoracic aorta. There is pulmonary vascular congestion. No airspace consolidation or large pleural effusion is identified. Bibasilar atelectasis is observed. No pneumothorax is seen. The skeletal structures are osteopenic. Advanced arthritic change is present in the shoulders. There is a right shoulder dislocation. IMPRESSION: 1. Cardiomegaly with evidence of congestive failure. 2. There is no airspace consolidation or large pleural effusion. 3. Right shoulder dislocation. Electronically signed by: Porfirio Santillan M.D. 06/03/2017 2:39 PM Dictated Date/Time: 06/03/2017 2:38 PM
[2017-06-03 14:41] LABS: HEMATOCRIT 30.2 % (42-52); HEMOGLOBIN 8.7 g/dL (14.0-18.0); MEAN CELL VOLUME 76.6 fL (80-100); MEAN CORPUSCULAR HEMOGLOBIN 22.1 pg (25-34); MEAN CORPUSCULAR HGB CONC 28.8 g/dl (32-36); MEAN PLATELET VOLUME 9.8 fL (7.4-10.4); PLATELET COUNT 297 K/uL (130-400); RED CELL DISTRIBUTION WIDTH CV 18.9 % (11.5-14.5); RED CELL DISTRIBUTION WIDTH SD 53.2 fL (36.4-46.3); WHITE BLOOD COUNT 6.01 K/uL (4.8-10.8)
[2017-06-03 14:45] LABS: ALKALINE PHOSPHATASE 92 U/L (45-117); TOTAL PROTEIN 6.5 gm/dl (6.4-8.2)
[2017-06-03 14:46] LABS: BASO % 0.3 %; BASO ABS # 0.02 K/uL (0-0.2); EOS % 7.7 %; EOS ABS # 0.46 K/uL (0-0.5); IG# 0.01 K/uL (0.00-0.02); LYMPH % 23.5 %; LYMPH ABS # 1.41 K/uL (1.2-3.4); MONO % 10.5 %; MONO ABS # 0.63 K/uL (0.11-0.59); NEUT % 57.8 %; NEUT ABS # 3.48 K/uL (1.4-6.5)
[2017-06-03] MEDS ORDERED: FUROSEMIDE 40 MG/4 ML VIAL IV STA (15:28)
[2017-06-03 16:00] LABS: INFLUENZA B ANTIGEN Neg for Influ B (NEG)
[2017-06-03] MEDS ORDERED: ONDANSETRON INJ 2 MG/ML 2 ML VIAL IV PRN (16:15)
[2017-06-03 16:21] VITALS: PULSE 64; O2SAT 100
[2017-06-03 17:10] LABS: RETIC COUNT % 2.2 % (0.5-2.0)
[2017-06-03] MEDS ORDERED: GLUCAGON FOR INJ 1 MG VIAL SQ PRN (17:15)
[2017-06-03] MEDS ORDERED: DEXTROSE 50% 50 ML SYR IV PRN (17:15)
[2017-06-03] MEDS ORDERED: GLUCOSE 40% GEL 15 GM TUBE PO PRN (17:15)
[2017-06-03] MEDS ORDERED: GLUCOSE 10 TABS/TUBE PO PRN (17:15)
--- NOTE | 2017-06-03 17:45 | History and Physical ---
History & Physical Date & Time of Service: Jun 03, 2017 ~ 15:45 Chief Complaint: Shortness of Breath Primary Care Physician: Syed Valdivia D.O. History of Present Illness 76 year old male who presents to the ED with shortness of breath. Patient was recently admitted to [facility] 04/28 - 05/08 for acute on chronic diastolic CHF. Patient was discharged on Lasix 20mg BID. Patient has a long standing history of non compliance, obesity hypoventilation, and GILLES on CPAP. At the time of my exam, patient is somewhat lethargic so history is limited. He reports increasing shortness of breath over the past couple of days. He has a dry non productive cough. He denies chest pain. He has lower extremity edema, he is unsure if it is worse than normal. No abdominal pain, nausea, vomiting, or diarrhea. He denies fever and chills. No urinary symptoms. In the ED, patient's CXR is suggesting CHF. He was hypoxic on room air at 85%. This improved with oxygen 3L via NC. He was also given Lasix 40mg IV. Past Medical/Surgical History Medical Problems: (1) Anxiety Status: Chronic (2) Asthma, cough variant Status: Chronic (3) Benign prostatic hyperplasia Status: Chronic (4) Depression Status: Chronic (5) Diabetes mellitus type 2 Status: Chronic (6) Diabetic neuropathy Status: Chronic (7) Diastolic heart failure Status: Chronic (8) Dyslipidemia Status: Chronic (9) Essential hypertension Status: Chronic (10) Gastroesophageal reflux disease Status: Chronic (11) Legal blindness Status: Chronic (12) Morbid obesity Permanent Comment: BMI > 40 Status: Chronic (13) Nocturnal hypoxemia Status: Chronic (14) Obesity hypoventilation syndrome Status: Chronic (15) Peripheral venous insufficiency Status: Chronic (16) Sleep apnea Permanent Comment: noncompliant with CPAP Status: Chronic Surgical Problems: (1) S/P cataract surgery Status: Chronic (2) S/p eyelid surgery Status: Chronic (3) S/P foot surgery, left Status: Chronic (4) S/P panniculectomy Status: Chronic (5) S/P tonsillectomy Status: Chronic Family History Diabetes mellitus MOTHER BROTHER GRANDMOTHER FH: CAD (coronary artery disease) FATHER (CABG) FH: CHF (congestive heart failure) MOTHER BROTHER GI disorder Hypertension MOTHER Social History Smoking Status: Former Smoker Alcohol Use: none Housing status: detention Immunizations History of Influenza Vaccine: Yes Influenza Vaccine Date: Jan 23, 2017 History of Tetanus Vaccine?: Yes Tetanus Immunization Date: Jun 02, 2013 History of Pneumococcal: Yes Pneumococcal Date: Aug 31, 2015 History of Hepatitis B Vaccine: Unknown Multi-Drug Resistant Organisms History of MDRO: Yes Type of MDRO: VRE, MRSA Allergies Coded Allergies: Hydromorphone (Verified Adverse Reaction, Severe, DELIRIUM, UNRESPONSIVENESS, 06/03/17) UNRESPONSIVENESS Oxycodone (Verified Adverse Reaction, Unknown, Trouble coming off, 06/03/17 ) Repoted by , NOT ALLERGIC TO THEM Propoxyphene (Verified Adverse Reaction, Unknown, Trouble coming off of Darvocet., 06/03/17) Reported by Home Medications Scheduled Aspirin (Aspirin Ec), 81 MG PO DAILY Finasteride (Proscar), 5 MG PO QAM Folic Acid (Folvite), 1 MG PO DAILY Furosemide (Lasix), 20 MG PO BID Gabapentin (Gabapentin), 300 MG PO BID Insulin Aspart (Novolog Flexpen), 10 UNITS SQ TIDM Insulin Glargine (Lantus Solostar), 25 UNITS SQ QPM Magnesium Oxide (Mag-Ox), 400 MG PO DAILY Metolazone (Zaroxolyn), 5 MG PO 2XWK Metoprolol Tartrate (Lopressor) (Lopressor), 12.5 MG PO BID Modafinil (Provigil), 100 MG PO QAM Multivitamin (Multivitamin), 1 TAB PO DAILY Nystatin-Triamcinolone (Nystatin/Triamcinolone), 1 APPLN TOP BID Omeprazole (Prilosec), 20 MG PO QAM Potassium Ext Rel (Klor-Con), 20 MEQ PO BID Simvastatin (Zocor), 40 MG PO QPM Tamsulosin HCl (Tamsulosin HCl), 1 CAP PO HS Venlafaxine Hcl (Effexor), 75 MG PO BID Scheduled PRN Acetaminophen (Tylenol), 1,000 MG PO Q6 PRN for Headache or Pain Loperamide Hcl (Imodium), 2 MG PO BID PRN for Diarrhea Review of Systems Somewhat limited due to lethargy; pertinent positives and negatives as noted in HPI Physical Exam Vital Signs Date Time Temp Pulse Resp B/P (MAP) Pulse Ox O2 Delivery O2 Flow Rate FiO2 06/03/17 16:21 64 100 40 06/03/17 15:54 63 20 106/52 100 Nasal Cannula 3.0 06/03/17 14:59 73 06/03/17 14:46 94 Nasal Cannula 2.0 06/03/17 14:45 71 16 123/75 85 Room Air 06/03/17 14:08 36.4 70 16 116/48 93 Room Air General Appearance: + mild distress, + obese, + pertinent finding (lethargic, arouses to loud verbal stimuli) Eyes: normal inspection, EOMI, sclerae normal ENT: hearing grossly normal, + pertinent finding (mucous membranes moist) Neck: supple, trachea midline, + JVD Respiratory/Chest: + decreased breath sounds, + wheezing (end expiratory ), + pertinent finding (mild tachypnea and increased work of breathing ) Cardiovascular: regular rate, rhythm, normal peripheral pulses, + pertinent finding (+2 pitting edema BLLE) Abdomen/GI: normal bowel sounds, non tender, soft, no organomegaly Extremities/Musculoskelatal: normal inspection, no calf tenderness, normal capillary refill Neurologic/Psych: oriented x 3, + pertinent finding (lethargic, arouses to loud verbal stimuli but falls back to sleep quickly; no gross focal deficit noted) Skin: warm/dry, + pertinent finding (erythema noted to BLLE ) Diagnostics Laboratory Results Results Past 24 Hours Test 06/03/17 13:55 06/03/17 14:25 06/03/17 14:33 06/03/17 16:34 Range/Units White Blood Count 6.01 4.8-10.8 K/uL Red Blood Count 3.94 4.7-6.1 M/uL Hemoglobin 8.7 14.0-18.0 g/dL Hematocrit 30.2 42-52 % Mean Corpuscular Volume 76.6 80-100 fL Mean Corpuscular Hemoglobin 22.1 25-34 pg Mean Corpuscular Hemoglobin Concent 28.8 32-36 g/dl Platelet Count 297 130-400 K/uL Mean Platelet Volume 9.8 7.4-10.4 fL Neutrophils (%) (Auto) 57.8 % Lymphocytes (%) (Auto) 23.5 % Monocytes (%) (Auto) 10.5 % Eosinophils (%) (Auto) 7.7 % Basophils (%) (Auto) 0.3 % Neutrophils # (Auto) 3.48 1.4-6.5 K/uL Lymphocytes # (Auto) 1.41 1.2-3.4 K/uL Monocytes # (Auto) 0.63 0.11-0.59 K/uL Eosinophils # (Auto) 0.46 0-0.5 K/uL Basophils # (Auto) 0.02 0-0.2 K/uL RDW Standard Deviation 53.2 36.4-46.3 fL RDW Coefficient of Variation 18.9 11.5-14.5 % Immature Granulocyte % (Auto) 0.2 % Immature Granulocyte # (Auto) 0.01 0.00-0.02 K/uL Hypochromasia PRESENT Anisocytosis PRESENT Microcytosis PRESENT Absolute Reticulocyte Count 0.09 0.02-0.10 10^6/uL Percent Reticulocyte Count 2.2 0.5-2.0 % Prothrombin Time 10.3 9.0-12.0 SECONDS Prothromb Time International Ratio 1.0 0.9-1.1 Sodium Level 138 136-145 mmol/L Potassium Level 4.2 3.5-5.1 mmol/L Chloride Level 101 98-107 mmol/L Carbon Dioxide Level 39 21-32 mmol/L Anion Gap -2.0 3-11 mmol/L Blood Urea Nitrogen 14 7-18 mg/dl Creatinine 1.10 0.60-1.40 mg/dl Est Creatinine Clear Calc Drug Dose 75.7 ml/min Estimated GFR () 75.7 Estimated GFR (Non- 65.3 BUN/Creatinine Ratio 13.1 10-20 Random Glucose 157 70-99 mg/dl Calcium Level 8.2 8.5-10.1 mg/dl Magnesium Level 2.2 1.8-2.4 mg/dl Total Bilirubin 0.5 0.2-1 mg/dl Aspartate Amino Transf (AST/SGOT) 16 15-37 U/L Alanine Aminotransferase (ALT/SGPT) 14 12-78 U/L Alkaline Phosphatase 92 45-117 U/L Troponin I < 0.015 0-0.045 ng/ml Pro-B-Type Natriuretic Peptide 1841 0-900 pg/ml Total Protein 6.5 6.4-8.2 gm/dl Albumin 2.6 3.4-5.0 gm/dl Globulin 3.9 2.5-4.0 gm/dl Albumin/Globulin Ratio 0.7 0.9-2 Influenza Type A Antigen Neg for Influ A NEG Influenza Type B Antigen Neg for Influ B NEG Arterial Blood pH 7.41 7.35-7.45 Arterial Blood Partial Pressure CO2 55 35-46 mmHg Arterial Blood Partial Pressure O2 56 80-95 mm/Hg Arterial Blood HCO3 34 19-24 mmol/L Arterial Blood Oxygen Saturation 84.6 90-95 % Arterial Blood Base Excess 8.3 -9-1.8 mEq/L Arterial Blood Gas Delivery ROOM AIR Khoa Test POS POS Transferrin % Saturation 20-50 % Diagnostic Radiology CXR IMPRESSION: 1. Cardiomegaly with evidence of congestive failure. 2. There is no airspace consolidation or large pleural effusion. 3. Right shoulder dislocation. Impression Assessment and Plan ACUTE HYPOXIC RESPIRATORY FAILURE ACUTE ON CHRONIC DIASTOLIC CHF ALTERED MENTAL STATUS - admit to tele - patient presenting with increasing shortness of breath x 2 days; in the ED, found to be hypoxic on room air at 85% which improved with 3L via NC and CXR suggestive of CHF - s/p Lasix 40mg IV in the ED - will start BiPap; keep NPO until mental status improves - will give an additional 20mg IV tonight and start 40mg IV BID tomorrow - continue two times weekly metolazone - daily weights, I/O, low Na+ diet; patient refusing rodriguez placement - obesity hypoventilation, GILLES, and CPAP non compliance likely contributing as well - recent echo 04/2017 - EF 60-65%, grade II diastolic dysfunction, mild TR - cardio consult with MNPAlida (patient follows with Dr. Abraham) ANEMIA - baseline hgb ~ 9-10 - noted to be 8.7 today - no signs of gross bleeding - possibly dilutional from volume overload - check iron studies DM - hgb a1c 7.9 04/2017 - continue Lantus + SSI HTN - BP controlled, continue metoprolol BPH - continue finasteride and tamsulosin RIGHT SHOULDER DISLOCATION, CHRONIC - noted on XR, unchanged from prior DVT PROPHYLAXIS - SQ Lovenox CODE STATUS - Patient is a full code as per my discussion with him as well as review of prior admission H&Ps. DISPO - In my clinical judgment this beneficiary meets acute admission criteria, established by [facility], that includes being hospitalized through two midnights. - PT/OT, case management consults; patient has been advised for placement in the past however has refused Agree with above H and P. Briefly 76M with hx of CHF, GILLES presents with SOB. Patient is somewhat lethargic. Currently on Bipap. Says he was having dry cough. SOb. Increased swelling in legs. No fevers. No chest pain. Says he was taking his Lasix daily. p/e Ge Lethargic. Obese Cvs s1 and s2 heard no murmurs RS cta b/l no added sounds Abd soft bs present no tender no distension Fan Balancer drowsy Ext gross lower extremity and erythema present a/p Acute resp failure Acute on chronic diastolic chf encephalopathy GILLES -non compliance with cpap IV lasix 40mg bid bipap monitor in tele cardiology consult Anemia f/u labs VTE Prophylaxis VTE Risk Assessment Done? Y/N: Yes Risk Level: Moderate
[2017-06-03 18:50] VITALS: BP 156/76; PULSE 66; TEMP 36.6; O2SAT 100; Ht 177.8 cm; Wt 119.9 kg
[2017-06-03] MEDS ORDERED: PHARMACY GLYCEMIC MGMT CONSULT PRN (18:55)
[2017-06-03] MEDS ORDERED: NURSING VERBAL MED ORDER ONE (19:15)
[2017-06-03] MEDS ORDERED: MICONAZOLE NITRATE POWDER 43 GM EXT PRN (19:30)
[2017-06-03] MEDS: ALBUT/IPRATROP 3MG/0.5MG NEB 3 ML VIAL INH SCH (20:27)
[2017-06-03 20:30] VITALS: PULSE 70; O2SAT 100
[2017-06-03] MEDS: INSULIN ASPART 100 UNITS/ML 3 ML PEN SC SCH (21:00)
--- NOTE | 2017-06-03 21:02 | Pharmacy Progress Note ---
Glycemic Control Intl Consult Date of Service Jun 03, 2017. Scope Glycemic Pharmacist consulted glycemic control and to write orders per [facility] inpatient glycemic control protocol Objective Weight (Kilograms): 128.400 Accuchecks BSG (last 24hrs): Test 06/03/17 13:55 Random Glucose 157 mg/dl (70-99) Laboratory Data (last 24hrs) Test 06/03/17 13:55 Anion Gap -2.0 mmol/L BUN/Creatinine Ratio 13.1 Blood Urea Nitrogen 14 mg/dl Creatinine 1.10 mg/dl Potassium Level 4.2 mmol/L Sodium Level 138 mmol/L White Blood Count 6.01 K/uL Red Blood Count 3.94 M/uL Hemoglobin 8.7 g/dL Hematocrit 30.2 % Mean Corpuscular Volume 76.6 fL Mean Corpuscular Hemoglobin 22.1 pg Mean Corpuscular Hemoglobin Concent 28.8 g/dl Platelet Count 297 K/uL Mean Platelet Volume 9.8 fL Neutrophils (%) (Auto) 57.8 % Lymphocytes (%) (Auto) 23.5 % Monocytes (%) (Auto) 10.5 % Eosinophils (%) (Auto) 7.7 % Basophils (%) (Auto) 0.3 % Neutrophils # (Auto) 3.48 K/uL Lymphocytes # (Auto) 1.41 K/uL Monocytes # (Auto) 0.63 K/uL Eosinophils # (Auto) 0.46 K/uL Basophils # (Auto) 0.02 K/uL HbA1c 7.9% on 04/29/17 Recent Pertinent Medications Outpatient Anti-diabetic Regimen: * Lantus 25 units SQ HS * NovoLog 10 units SQ TIDM + SSI Assessment & Plan ASSESSMENT: * 76yo T2DM male well known to pharmacy from previous admissions/glycemic consults * Pt with significant A1c improvement over the past 6 months... A1c 10.1% in January 2017 down to 7.9% in April 2017 * Patient uses SQ basal bolus insulin regimen as an outpatient. Lantus is dosed once daily at HS * Pt is currently NPO, will continue daily dosing of Lantus but reduce dosing for NPO * Will use CF/CR similar to previous admission PLAN FOR INPATIENT GLYCEMIC CONTROL: * Basal insulin * Lantus 15 units SQ HS * Bolus insulin * NovoLog per scale ACHS or Q6hrs while NPO * Goal Range: Low 110 mg/dL - High 150 mg/dL * Correction Factor: 20 mg/dL/unit * Nutritional / Prandial insulin per carb ratio of 1 unit per 7 grams CHO consumed * Please note that the plan above was derived based on current level of insulin resistance and hospital stress. These recommendations are appropriate for inpatient admission only. Plan of care upon discharge will need to be reassessed to avoid potential outpatient hypo/hyperglycemia. Thank you.
[2017-06-03] MEDS: METOPROLOL TARTRATE 25 MG TAB PO SCH (21:04)
[2017-06-03] MEDS: GABAPENTIN 300 MG CAP PO SCH (21:04)
[2017-06-03] MEDS: POTASSIUM CHLORIDE 20 MEQ TABCR PO SCH (21:04)
[2017-06-03] MEDS: TAMSULOSIN HCL 0.4 MG CAP PO SCH (21:05)
[2017-06-03] MEDS: ENOXAPARIN 40 MG/0.4 ML SYR SC SCH (21:05)
[2017-06-03] MEDS: SIMVASTATIN 40 MG TAB PO SCH (21:05)
[2017-06-03] MEDS: VENLAFAXINE HCL 50 MG TAB PO SCH (21:07)
[2017-06-03] MEDS: INSULIN GLARGINE SOLOSTAR 100 UNITS/ML 3 ML PEN SC SCH (21:10)
[2017-06-03] MEDS ORDERED: FUROSEMIDE INJ 20 MG in SYRINGE 0 ML IV ONE (22:00)
[2017-06-03 23:50] VITALS: BP 109/69; PULSE 69; TEMP 36.5; O2SAT 98
[2017-06-04] VITALS (11 sets, daily range): BP systolic 98–139; BP diastolic 46–71; PULSE 62–80; TEMP 36.2–37; O2SAT 84–100
[2017-06-04] MEDS: ALBUT/IPRATROP 3MG/0.5MG NEB 3 ML VIAL INH SCH ×4 (02:09→19:46)
[2017-06-04] MEDS: ACETAMINOPHEN 325 MG TAB PO PRN ×2 (06:07→19:34)
[2017-06-04 07:09] LABS: HEMOGLOBIN 8.9 g/dL (14.0-18.0); MEAN CELL VOLUME 77.1 fL (80-100); MEAN CORPUSCULAR HEMOGLOBIN 21.4 pg (25-34); MEAN CORPUSCULAR HGB CONC 27.8 g/dl (32-36); MEAN PLATELET VOLUME 9.6 fL (7.4-10.4); PLATELET COUNT 269 K/uL (130-400); RED CELL DISTRIBUTION WIDTH CV 18.6 % (11.5-14.5); RED CELL DISTRIBUTION WIDTH SD 52.7 fL (36.4-46.3); WHITE BLOOD COUNT 6.01 K/uL (4.8-10.8)
[2017-06-04] MEDS: FINASTERIDE 5 MG TAB PO SCH (07:16)
[2017-06-04] MEDS: VENLAFAXINE HCL 50 MG TAB PO SCH ×2 (07:16→21:04)
[2017-06-04] MEDS: GABAPENTIN 300 MG CAP PO SCH ×2 (07:16→21:07)
[2017-06-04] MEDS: MULTIVITAMIN TAB PO SCH (07:17)
[2017-06-04] MEDS: PANTOprazole SOD 40 MG TAB PO SCH (07:17)
[2017-06-04] MEDS: POTASSIUM CHLORIDE 20 MEQ TABCR PO SCH ×2 (07:17→21:05)
[2017-06-04] MEDS: METOPROLOL TARTRATE 25 MG TAB PO SCH ×2 (07:18→21:06)
[2017-06-04] MEDS: ASPIRIN 81 MG ECTAB PO SCH (07:19)
[2017-06-04] MEDS: MAGNESIUM OXIDE 400 MG TAB PO SCH (07:19)
[2017-06-04 07:43] LABS: CALCIUM 8.1 mg/dl (8.5-10.1); CREATININE 0.95 mg/dl (0.60-1.40); POTASSIUM 3.3 mmol/L (3.5-5.1)
[2017-06-04] MEDS ORDERED: POTASSIUM CHLORIDE 10 MEQ TABCR PO STA (08:20)
[2017-06-04] MEDS ORDERED: METOLAZONE 5 MG TAB PO SCH (08:30)
[2017-06-04] MEDS: FUROSEMIDE INJ 40 MG in SYRINGE 0 ML IV SCH ×2 (09:03→21:03)
[2017-06-04] MEDS: INSULIN ASPART 100 UNITS/ML 3 ML PEN SC SCH ×4 (09:09→21:12)
[2017-06-04] MEDS: MODAFINIL 100 MG TAB PO SCH (09:13)
--- NOTE | 2017-06-04 09:55 | Progress Note ---
Medicine Progress Note Date & Time of Visit: Jun 04, 2017 at 09:55. Subjective Patient doing well, is alert and recalls the events surrounding admission. No overnight events noted. Tolerating PO without difficulty. No complaints other than wanting to go home. States he did not wear the bipap overnight due to find the mask to be uncomfortable. Was encouraged to wear the bipap and was updated on his results from the ABG as well as his mental status changes on admission. Objective Last 8 Hrs Date Time Temp Pulse Resp B/P (MAP) Pulse Ox O2 Delivery O2 Flow Rate FiO2 06/04/17 08:36 Nasal Cannula 3.0 06/04/17 07:35 68 16 99 Nasal Cannula 3.0 06/04/17 07:07 36.7 66 20 109/56 (73) 97 Nasal Cannula 3.0 06/04/17 04:00 Nasal Cannula 3.0 06/04/17 03:50 37.0 73 23 98/46 (63) 92 Nasal Cannula 4.0 06/04/17 02:09 62 16 84 Room Air Physical Exam: GENERAL: Patient is in no acute distress. HEENT: No acute trauma, normocephalic, mucous membranes moist, no nasal congestion, no scleral icterus, conjunctivae clear. NECK: No stridor, trachea is midline. LUNGS: Diminished breath sounds bilaterally, no wheeze, no rhonchi, breath sounds equal. HEART: Without murmurs gallops or rubs, regular rate and rhythm. ABDOMEN: Soft, nontender, bowel sounds positive, obese EXTREMITIES: No cyanosis; B/L LE edema NEUROLOGIC: Oriented x 3, no acute motor or sensory deficits, no focal weakness. SKIN: No rash, no jaundice, no diaphoresis. B/L LE erythematous, stasis skin changes present Laboratory Results: Last 24 Hours Test 06/03/17 13:55 06/03/17 14:25 06/03/17 14:33 06/03/17 20:23 White Blood Count 6.01 K/uL Red Blood Count 3.94 M/uL Hemoglobin 8.7 g/dL Hematocrit 30.2 % Mean Corpuscular Volume 76.6 fL Mean Corpuscular Hemoglobin 22.1 pg Mean Corpuscular Hemoglobin Concent 28.8 g/dl Platelet Count 297 K/uL Mean Platelet Volume 9.8 fL Neutrophils (%) (Auto) 57.8 % Lymphocytes (%) (Auto) 23.5 % Monocytes (%) (Auto) 10.5 % Eosinophils (%) (Auto) 7.7 % Basophils (%) (Auto) 0.3 % Neutrophils # (Auto) 3.48 K/uL Lymphocytes # (Auto) 1.41 K/uL Monocytes # (Auto) 0.63 K/uL Eosinophils # (Auto) 0.46 K/uL Basophils # (Auto) 0.02 K/uL RDW Standard Deviation 53.2 fL RDW Coefficient of Variation 18.9 % Immature Granulocyte % (Auto) 0.2 % Immature Granulocyte # (Auto) 0.01 K/uL Hypochromasia PRESENT Anisocytosis PRESENT Microcytosis PRESENT Absolute Reticulocyte Count 0.09 10^6/uL Percent Reticulocyte Count 2.2 % Prothrombin Time 10.3 SECONDS Prothromb Time International Ratio 1.0 Sodium Level 138 mmol/L Potassium Level 4.2 mmol/L Chloride Level 101 mmol/L Carbon Dioxide Level 39 mmol/L Anion Gap -2.0 mmol/L Blood Urea Nitrogen 14 mg/dl Creatinine 1.10 mg/dl Est Creatinine Clear Calc Drug Dose 75.7 ml/min Estimated GFR () 75.7 Estimated GFR (Non- 65.3 BUN/Creatinine Ratio 13.1 Random Glucose 157 mg/dl Calcium Level 8.2 mg/dl Magnesium Level 2.2 mg/dl Iron Level 21 mcg/dl Total Iron Binding Capacity 307 mcg/dl Transferrin 246 mg/dl Transferrin % Saturation 6 % Ferritin 21.1 ng/ml Total Bilirubin 0.5 mg/dl Aspartate Amino Transf (AST/SGOT) 16 U/L Alanine Aminotransferase (ALT/SGPT) 14 U/L Alkaline Phosphatase 92 U/L Troponin I < 0.015 ng/ml < 0.015 ng/ml Pro-B-Type Natriuretic Peptide 1841 pg/ml Total Protein 6.5 gm/dl Albumin 2.6 gm/dl Globulin 3.9 gm/dl Albumin/Globulin Ratio 0.7 Influenza Type A Antigen Neg for Influ A Influenza Type B Antigen Neg for Influ B Arterial Blood pH 7.41 Arterial Blood Partial Pressure CO2 55 mmHg Arterial Blood Partial Pressure O2 56 mm/Hg Arterial Blood HCO3 34 mmol/L Arterial Blood Oxygen Saturation 84.6 % Arterial Blood Base Excess 8.3 mEq/L Arterial Blood Gas Delivery ROOM AIR Khoa Test POS Vitamin B12 Level 620 pg/mL Folate > 24.00 ng/mL Test 06/03/17 20:26 06/04/17 00:34 06/04/17 02:09 06/04/17 06:24 Bedside Glucose 127 mg/dl 138 mg/dl Troponin I < 0.015 ng/ml White Blood Count 6.01 K/uL Red Blood Count 4.15 M/uL Hemoglobin 8.9 g/dL Hematocrit 32.0 % Mean Corpuscular Volume 77.1 fL Mean Corpuscular Hemoglobin 21.4 pg Mean Corpuscular Hemoglobin Concent 27.8 g/dl RDW Standard Deviation 52.7 fL RDW Coefficient of Variation 18.6 % Platelet Count 269 K/uL Mean Platelet Volume 9.6 fL Sodium Level 140 mmol/L Potassium Level 3.3 mmol/L Chloride Level 101 mmol/L Carbon Dioxide Level 38 mmol/L Anion Gap 1.0 mmol/L Blood Urea Nitrogen 13 mg/dl Creatinine 0.95 mg/dl Est Creatinine Clear Calc Drug Dose 90.5 ml/min Estimated GFR () 90.4 Estimated GFR (Non- 78.0 BUN/Creatinine Ratio 13.8 Random Glucose 93 mg/dl Calcium Level 8.1 mg/dl Magnesium Level 2.2 mg/dl Test 06/04/17 06:33 Bedside Glucose 100 mg/dl Assessment & Plan ENCEPHALOPATHY ACUTE ON CHRONIC HYPOXIC RESPIRATORY FAILURE: -likely related to Acute on chronic diastolic CHF exacerbation and OHS/GILLES with poor compliance issues with meds and bipap at home -patient presented with increasing shortness of breath the last 2 days; on ER he was found to be hypoxic on room air at 85% which improved with 3L via NC -CXR: suggestive of CHF -continued on Lasix 40mg IV BID -recommended BiPap for both ABG and CHF but patient has been refusing -was on two times a week metolazone but this was held per Cardio -daily weights, I's & O's, low Na+ diet -staff were unable to get a rodriguez placed -Cardiology consulted, appreciate input -recent TTE: 04/2017 - EF 60-65%, grade II diastolic dysfunction, mild TR ANEMIA: -patient's baseline hgb ~ 9-10 -8.9 today -no signs of bleeding -check iron studies -monitor DM TYPE II: -HbA1c: 7.9% 04/2017 -continue Lantus + SSI HTN: -BP controlled; low/normotensive -continue metoprolol BPH: -continue finasteride and tamsulosin -also has chronic incontinence but was not able to get a rodriguez catheter placed CHRONIC RIGHT SHOULDER DISLOCATION: -noted on XR, unchanged from prior Current Inpatient Medications: Current Inpatient Medications Medications (Trade) Dose Ordered Sig/Bj Route Start Time Stop Time Status Last Admin Dose Admin Enoxaparin Sodium (Lovenox Inj) 40 mg Q24H SC 06/03/17 21:00 07/03/17 20:59 06/03/17 21:05 40 MG Acetaminophen (Tylenol Tab) 650 mg Q4H PRN PO 06/03/17 16:15 07/03/17 16:14 06/04/17 06:07 650 MG Ondansetron HCl (Zofran Inj) 4 mg Q6H PRN IV 06/03/17 16:15 07/03/17 16:14 Albuterol/ Ipratropium (Duoneb) 3 ml Q6R INH 06/03/17 21:00 07/03/17 20:59 06/04/17 07:35 3 ML Furosemide 40 mg/ Syringe 4 ml @ 4 mls/min BID IV 06/04/17 09:00 07/04/17 08:59 06/04/17 09:03 4 MLS/MIN Aspirin (Ecotrin Tab) 81 mg DAILY PO 06/04/17 09:00 07/04/17 08:59 06/04/17 07:19 81 MG Finasteride (Proscar Tab) 5 mg QAM PO 06/04/17 09:00 07/04/17 08:59 06/04/17 07:16 5 MG Folic Acid (Folvite Tab) 1 mg DAILY PO 06/04/17 09:00 07/04/17 08:59 06/04/17 07:17 1 MG Gabapentin (Neurontin Cap) 300 mg BID PO 06/03/17 21:00 07/03/17 20:59 06/04/17 07:16 300 MG Magnesium Oxide (Mag-Ox Tab) 400 mg DAILY PO 06/04/17 09:00 07/04/17 08:59 06/04/17 07:19 400 MG Metolazone (Zaroxolyn Tab) 5 mg TuTh@0830 PO 06/04/17 08:30 07/04/17 08:29 06/04/17 07:15 5 MG Metoprolol Tartrate (Lopressor Tab) 12.5 mg BID PO 06/03/17 21:00 07/03/17 20:59 06/04/17 07:18 12.5 MG Modafinil (proVIGIL TAB) 100 mg QAM PO 06/04/17 09:00 07/04/17 08:59 06/04/17 09:13 100 MG Multivitamins (Multivitamin Tab) 1 tab DAILY PO 06/04/17 09:00 07/04/17 08:59 06/04/17 07:17 1 TAB Potassium Chloride (Klor-Con Tab) 20 meq BID PO 06/03/17 21:00 07/03/17 20:59 06/04/17 07:17 20 MEQ Simvastatin (Zocor Tab) 40 mg PM PO 06/03/17 21:00 07/03/17 20:59 06/03/17 21:05 40 MG Tamsulosin HCl (Flomax Cap) 0.4 mg HS PO 06/03/17 21:00 07/03/17 20:59 06/03/17 21:05 0.4 MG Venlafaxine HCl (effeXOR TAB) 75 mg BID PO 06/03/17 21:00 07/03/17 20:59 06/04/17 07:16 75 MG Pantoprazole Sodium (Protonix Tab) 40 mg QAM PO 06/04/17 09:00 07/04/17 08:59 06/04/17 07:17 40 MG Insulin Glargine (Lantus Solostar Pen) 15 units HS SC 06/03/17 21:00 07/03/17 20:59 06/03/17 21:10 15 UNITS Insulin Aspart (novoLOG ASPART) SLIDING SCALE If C... ACHS SC 06/03/17 21:00 07/03/17 20:59 06/04/17 09:09 5 UNITS Glucose (Glucose 40% Gel) 15-30 GRAMS 15 GRAMS... UD PRN PO 06/03/17 17:15 07/03/17 17:14 Glucose (Glucose Chew Tab) 4-8 Tablets 4 Tabl... UD PRN PO 06/03/17 17:15 07/03/17 17:14 Dextrose (Dextrose 50% 50ML Syringe) 25-50ML OF 50% DW IV FOR... UD PRN IV 06/03/17 17:15 07/03/17 17:14 Glucagon (Glucagon Inj) 1 mg UD PRN SQ 06/03/17 17:15 07/03/17 17:14 Miscellaneous Information (Consult Glycemic Management Pharmacy) 1 ea UD PRN N/A 06/03/17 18:55 07/03/17 18:54 Miconazole Nitrate (Desenex Powder) 1 appln PRN PRN EXT 06/03/17 19:30 07/03/17 19:29
--- NOTE | 2017-06-04 12:04 | Pharmacy Progress Note ---
Pharmacy Glycemic Short Note 2 Date of Service Jun 04, 2017. Outpatient Anti-diabetic Regimen: * Lantus 25 units SQ HS * NovoLog 10 units SQ TIDM + SSI * HbA1c: 7.9% (04/29/17) ASSESSMENT: * 76yo T2DM male well known to pharmacy from previous admissions/glycemic consults * Patient uses SQ basal bolus insulin regimen as an outpatient. Lantus is dosed once daily at HS * Pt is currently NPO, will continue daily dosing of Lantus but reduce dosing for NPO * Will use CF/CR similar to previous admission * BSGs have been well controlled thus far, so no changes required at this time. PLAN FOR INPATIENT GLYCEMIC CONTROL: * Basal insulin * Lantus 15 units SQ HS * Bolus insulin * NovoLog per scale ACHS or Q6hrs while NPO * Goal Range: Low 110 mg/dL - High 150 mg/dL * Correction Factor: 20 mg/dL/unit * Nutritional / Prandial insulin per carb ratio of 1 unit per 7 grams CHO consumed PLAN FOR DISCHARGE: * Pt with significant A1c improvement over the past 6 months... A1c 10.1% in January 2017 down to 7.9% in April 2017 * Do not anticipate that pt will require changes to outpt regimen on discharge. * Please note that the plan above was derived based on current level of insulin resistance and hospital stress. These recommendations are appropriate for inpatient admission only. Plan of care upon discharge will need to be reassessed to avoid potential outpatient hypo/hyperglycemia. Thank you.
--- NOTE | 2017-06-04 15:16 | Cardiology Consultation ---
Cardiology Consultation Date of Consultation: Jun 04, 2017. Requesting Physician: Juan Daniel Pt evaluation today including: conversation w/ patient, physical exam, chart review, lab review, review of studies, review of inpatient medication list History of Present Illness Mr. Bowen is a 76-year-old man with a history of chronic diastolic heart failure , obesity hypoventilation syndrome, obstructive sleep apnea, hypertension, hyperlipidemia, iron deficiency anemia, type 2 diabetes on insulin, venous insufficiency, chronic sacral wounds who was readmitted overnight in the setting acute heart failure. Patient is followed by Dr. Abraham for his outpatient cardiac care. Has not seen him in the clinic since January of 2016 Patient with multiple prior admissions for heart failure, most recently admitted last month, discharged 05/08/2017. On discharge was noted to have mild acute kidney injury with creatinine up to 1.5 and was discharged home on 20 mg b.i.d.. Of note previously has been on p.o. doses of Lasix as high as 80 mg b.i.d.. Continues to take metolazone 5 mg twice per week. Patient is largely wheelchair bound, able to walk across the room with the aid of a walker. Was in his usual state of health initially when he got home but over the last several days has become increasingly short of breath, with orthopnea. Denied worsened lower extremity edema. Denies any preceding chest pain, palpitations, fevers/chills. No URI symptoms. Has been taking diuretics as scheduled, reports modest urine output with current 20 mg of Lasix. Presenting chest x-ray consistent with pulmonary edema. Started on IV Lasix 40 mg and has received 3 doses. I/Os not accurately recorded but patient reports improved symptoms since admission. Not back to baseline. Family History Diabetes mellitus MOTHER BROTHER GRANDMOTHER FH: CAD (coronary artery disease) FATHER (CABG) FH: CHF (congestive heart failure) MOTHER BROTHER GI disorder Hypertension MOTHER Social History Smoking Status: Never Smoker History of Alcohol Use: No Lives with his of almost 50 years of marriage. Denies alcohol, illicit drugs, tobacco Review of Systems 10 point review of systems was completed and was otherwise negative unless stated in HPI Allergies Coded Allergies: Hydromorphone (Verified Adverse Reaction, Severe, DELIRIUM, UNRESPONSIVENESS, 06/03/17) UNRESPONSIVENESS Oxycodone (Verified Adverse Reaction, Unknown, Trouble coming off, 06/03/17 ) Repoted by , NOT ALLERGIC TO THEM Propoxyphene (Verified Adverse Reaction, Unknown, Trouble coming off of Darvocet., 06/03/17) Reported by Medications Current Inpatient Medications Medications (Trade) Dose Ordered Sig/Bj Route Start Time Stop Time Status Last Admin Dose Admin Enoxaparin Sodium (Lovenox Inj) 40 mg Q24H SC 06/03/17 21:00 07/03/17 20:59 06/03/17 21:05 40 MG Acetaminophen (Tylenol Tab) 650 mg Q4H PRN PO 06/03/17 16:15 07/03/17 16:14 06/04/17 06:07 650 MG Ondansetron HCl (Zofran Inj) 4 mg Q6H PRN IV 06/03/17 16:15 07/03/17 16:14 Albuterol/ Ipratropium (Duoneb) 3 ml Q6R INH 06/03/17 21:00 07/03/17 20:59 06/04/17 14:25 3 ML Furosemide 40 mg/ Syringe 4 ml @ 4 mls/min BID IV 06/04/17 09:00 07/04/17 08:59 06/04/17 09:03 4 MLS/MIN Aspirin (Ecotrin Tab) 81 mg DAILY PO 06/04/17 09:00 07/04/17 08:59 06/04/17 07:19 81 MG Finasteride (Proscar Tab) 5 mg QAM PO 06/04/17 09:00 07/04/17 08:59 06/04/17 07:16 5 MG Folic Acid (Folvite Tab) 1 mg DAILY PO 06/04/17 09:00 07/04/17 08:59 06/04/17 07:17 1 MG Gabapentin (Neurontin Cap) 300 mg BID PO 06/03/17 21:00 07/03/17 20:59 06/04/17 07:16 300 MG Magnesium Oxide (Mag-Ox Tab) 400 mg DAILY PO 06/04/17 09:00 07/04/17 08:59 06/04/17 07:19 400 MG Metolazone (Zaroxolyn Tab) 5 mg TuTh@0830 PO 06/04/17 08:30 07/04/17 08:29 06/04/17 07:15 5 MG Metoprolol Tartrate (Lopressor Tab) 12.5 mg BID PO 06/03/17 21:00 07/03/17 20:59 06/04/17 07:18 12.5 MG Modafinil (proVIGIL TAB) 100 mg QAM PO 06/04/17 09:00 07/04/17 08:59 06/04/17 09:13 100 MG Multivitamins (Multivitamin Tab) 1 tab DAILY PO 06/04/17 09:00 07/04/17 08:59 06/04/17 07:17 1 TAB Potassium Chloride (Klor-Con Tab) 20 meq BID PO 06/03/17 21:00 07/03/17 20:59 06/04/17 07:17 20 MEQ Simvastatin (Zocor Tab) 40 mg PM PO 06/03/17 21:00 07/03/17 20:59 06/03/17 21:05 40 MG Tamsulosin HCl (Flomax Cap) 0.4 mg HS PO 06/03/17 21:00 07/03/17 20:59 06/03/17 21:05 0.4 MG Venlafaxine HCl (effeXOR TAB) 75 mg BID PO 06/03/17 21:00 07/03/17 20:59 06/04/17 07:16 75 MG Pantoprazole Sodium (Protonix Tab) 40 mg QAM PO 06/04/17 09:00 07/04/17 08:59 06/04/17 07:17 40 MG Insulin Glargine (Lantus Solostar Pen) 15 units HS SC 06/03/17 21:00 07/03/17 20:59 06/03/17 21:10 15 UNITS Insulin Aspart (novoLOG ASPART) SLIDING SCALE If C... ACHS SC 06/03/17 21:00 07/03/17 20:59 06/04/17 12:21 4 UNITS Glucose (Glucose 40% Gel) 15-30 GRAMS 15 GRAMS... UD PRN PO 06/03/17 17:15 07/03/17 17:14 Glucose (Glucose Chew Tab) 4-8 Tablets 4 Tabl... UD PRN PO 06/03/17 17:15 07/03/17 17:14 Dextrose (Dextrose 50% 50ML Syringe) 25-50ML OF 50% DW IV FOR... UD PRN IV 06/03/17 17:15 07/03/17 17:14 Glucagon (Glucagon Inj) 1 mg UD PRN SQ 06/03/17 17:15 07/03/17 17:14 Miscellaneous Information (Consult Glycemic Management Pharmacy) 1 ea UD PRN N/A 06/03/17 18:55 07/03/17 18:54 Miconazole Nitrate (Desenex Powder) 1 appln PRN PRN EXT 06/03/17 19:30 07/03/17 19:29 Physical Exam Vital Signs Past 12 Hours Date Time Temp Pulse Resp B/P (MAP) Pulse Ox O2 Delivery O2 Flow Rate FiO2 06/04/17 14:25 69 20 99 Nasal Cannula 2.0 06/04/17 12:50 36.4 80 24 99/51 (67) 100 Nasal Cannula 2.0 06/04/17 12:00 Nasal Cannula 2.0 06/04/17 08:36 Nasal Cannula 3.0 06/04/17 07:35 68 16 99 Nasal Cannula 3.0 06/04/17 07:07 36.7 66 20 109/56 (73) 97 Nasal Cannula 3.0 06/04/17 04:00 Nasal Cannula 3.0 06/04/17 03:50 37.0 73 23 98/46 (63) 92 Nasal Cannula 4.0 General: Comfortable, no acute distress, obese Eyes: Sclerae anicteric, extraocular movements intact HENT: Oropharynx clear mucous membranes moist Neck: Supple, no lymphadenopathy, no thyromegaly. Lungs: Diffuse wheezes, few rales at bases Cardiac: Distant heart sounds, regular, no murmurs, rubs or gallops. JVP elevated. Trace to 1+ lower extremity edema to the shins with signs of chronic stasis dermatitis Extremities well perfused. Vascular: Normal carotid upstrokes, no bruits. 2+ radial, distal pulses intact. No active ulcerations on lower extremities. Abdomen: Soft, nontender, obese, positive bowel sounds. Superficial ulcerations with surrounding erythema on bilateral buttocks Neuro: Cranial nerves 2-12 grossly intact, remainder exam nonfocal Psych: Alert orient x3, normal affect and mood Data Laboratory Results: Last 24 Hours Test 06/03/17 20:23 06/03/17 20:26 06/04/17 00:34 06/04/17 02:09 Troponin I < 0.015 ng/ml < 0.015 ng/ml Vitamin B12 Level 620 pg/mL Folate > 24.00 ng/mL Bedside Glucose 127 mg/dl 138 mg/dl Test 06/04/17 06:24 06/04/17 06:33 06/04/17 10:30 06/04/17 10:52 White Blood Count 6.01 K/uL Red Blood Count 4.15 M/uL Hemoglobin 8.9 g/dL Hematocrit 32.0 % Mean Corpuscular Volume 77.1 fL Mean Corpuscular Hemoglobin 21.4 pg Mean Corpuscular Hemoglobin Concent 27.8 g/dl RDW Standard Deviation 52.7 fL RDW Coefficient of Variation 18.6 % Platelet Count 269 K/uL Mean Platelet Volume 9.6 fL Sodium Level 140 mmol/L Potassium Level 3.3 mmol/L Chloride Level 101 mmol/L Carbon Dioxide Level 38 mmol/L Anion Gap 1.0 mmol/L Blood Urea Nitrogen 13 mg/dl Creatinine 0.95 mg/dl Est Creatinine Clear Calc Drug Dose 90.5 ml/min Estimated GFR () 90.4 Estimated GFR (Non- 78.0 BUN/Creatinine Ratio 13.8 Random Glucose 93 mg/dl Calcium Level 8.1 mg/dl Magnesium Level 2.2 mg/dl Bedside Glucose 100 mg/dl 114 mg/dl Urine Color YELLOW Urine Appearance CLOUDY Urine pH 7.5 Urine Specific [place] 1.011 Urine Protein NEG Urine Glucose (UA) NEG Urine Ketones NEG Urine Occult Blood TRACE Urine Nitrite NEG Urine Bilirubin NEG Urine Urobilinogen NEG Urine Leukocyte Esterase LARGE Urine WBC (Auto) >30 /hpf Urine RBC (Auto) 5-10 /hpf Urine Hyaline Casts (Auto) 1-5 /lpf Urine Epithelial Cells (Auto) 10-20 /lpf Urine Bacteria (Auto) 4+ Imaging: Chest x-ray--cardiomegaly, interstitial edema consistent with pleural effusion EKG:Sinus rhythm, first-degree AV block, no significant ST abnormalities Telemetry reviewed: Sinus rhythm, no significant arrhythmia Assessment & Plan 1. Acute on chronic diastolic heart failure 2. Obesity hypoventilation syndrome/obstructive sleep apnea 3. Hypertension 4. Type 2 diabetes on insulin 5. Borderline renal insufficiency 6. Dyslipidemia Patient here with recurrent acute decompensated heart failure without clear precipitants. Symptoms are improving with IV diuresis. On exam today he is well perfused but with residual pulmonary and systemic venous congestion. For now recommend continued IV diuresis with Lasix 40 mg b.i.d.. Continue to follow I/Os and renal function. Would hold off on additional p.o. metolazone at this time. Long-term suspect will need increased maintenance dose of Lasix on discharge. Continue current statin, aspirin in the setting ASCVD risk factors. We will continue follow while admitted. Thank you for consultation. Please contact with any questions.
[2017-06-04] MEDS ORDERED: COUGH DROP (SUGAR FREE) LOZ 24 LOZ/1 BOX LOZ ONE (19:32)
[2017-06-04] MEDS: ENOXAPARIN 40 MG/0.4 ML SYR SC SCH (21:03)
[2017-06-04] MEDS: TAMSULOSIN HCL 0.4 MG CAP PO SCH (21:05)
[2017-06-04] MEDS: SIMVASTATIN 40 MG TAB PO SCH (21:06)
[2017-06-04] MEDS: INSULIN GLARGINE SOLOSTAR 100 UNITS/ML 3 ML PEN SC SCH (21:13)
[2017-06-05] VITALS (11 sets, daily range): BP systolic 98–156; BP diastolic 47–85; PULSE 71–87; TEMP 36.3–37.4; O2SAT 91–100
[2017-06-05] MEDS ORDERED: GUAIFENESIN SUGAR FREE 100 MG/5 ML UDC PO STA (01:39)
[2017-06-05] MEDS ORDERED: GUAIFENESIN SUGAR FREE 100 MG/5 ML UDC PO PRN (01:45)
[2017-06-05] MEDS: ACETAMINOPHEN 325 MG TAB PO PRN (01:52)
[2017-06-05] MEDS: ALBUT/IPRATROP 3MG/0.5MG NEB 3 ML VIAL INH SCH ×4 (02:20→19:56)
[2017-06-05 07:42] LABS: HEMATOCRIT 30.2 % (42-52); HEMOGLOBIN 8.7 g/dL (14.0-18.0); MEAN CELL VOLUME 76.5 fL (80-100); MEAN CORPUSCULAR HGB CONC 28.8 g/dl (32-36); MEAN PLATELET VOLUME 9.5 fL (7.4-10.4); PLATELET COUNT 281 K/uL (130-400); RED CELL DISTRIBUTION WIDTH CV 18.3 % (11.5-14.5); WHITE BLOOD COUNT 6.87 K/uL (4.8-10.8)
[2017-06-05 08:09] LABS: CALCIUM 8.6 mg/dl (8.5-10.1); CREATININE 1.15 mg/dl (0.60-1.40)
[2017-06-05] MEDS: ASPIRIN 81 MG ECTAB PO SCH (09:52)
[2017-06-05] MEDS: METOPROLOL TARTRATE 25 MG TAB PO SCH ×2 (09:52→20:19)
[2017-06-05] MEDS: FUROSEMIDE INJ 40 MG in SYRINGE 0 ML IV SCH ×2 (09:52→20:39)
[2017-06-05] MEDS: PANTOprazole SOD 40 MG TAB PO SCH (09:53)
[2017-06-05] MEDS: MULTIVITAMIN TAB PO SCH (09:53)
[2017-06-05] MEDS: GABAPENTIN 300 MG CAP PO SCH ×2 (09:53→20:19)
[2017-06-05] MEDS: MAGNESIUM OXIDE 400 MG TAB PO SCH (09:53)
[2017-06-05] MEDS: VENLAFAXINE HCL 50 MG TAB PO SCH ×2 (09:53→20:18)
[2017-06-05] MEDS: FINASTERIDE 5 MG TAB PO SCH (09:53)
[2017-06-05] MEDS: POTASSIUM CHLORIDE 20 MEQ TABCR PO SCH ×2 (09:54→20:19)
[2017-06-05] MEDS: INSULIN ASPART 100 UNITS/ML 3 ML PEN SC SCH ×4 (10:02→20:43)
[2017-06-05] MEDS: MODAFINIL 100 MG TAB PO SCH (10:09)
--- NOTE | 2017-06-05 14:31 | Cardiology Follow-Up ---
Subjective Subjective Date of Service: Jun 05, 2017. Pt evaluation today including: conversation w/ patient, physical exam, chart review, lab review, review of studies, review of inpatient medication list Additional Details: Breathing improved today. Reports some coughing overnight but no new symptoms this morning. I/Os not accurate Telemetry reviewed--no events overnight Problem List Medical Problems: (1) Acute urinary retention Status: Acute (2) Altered mental status Status: Acute (3) Altered mental status Status: Acute (4) Altered mental status Status: Acute (5) Bronchitis Status: Acute (6) CHF (congestive heart failure) Status: Acute (7) CHF (congestive heart failure) Status: Acute (8) CO2 retention Status: Acute (9) Complication of catheter Status: Acute (10) Congestive heart failure Status: Acute (11) Dystonic drug reaction Status: Acute (12) Failure to thrive Status: Acute (13) Hypercarbia Status: Acute (14) Hypoglycemia Status: Acute (15) Hypoxemia Status: Acute (16) Hypoxemia Status: Acute (17) Hypoxia Status: Acute (18) Hypoxia Status: Acute (19) Malfunction of Osorio catheter Status: Acute (20) Pneumonia Status: Acute (21) Respiratory acidosis Status: Acute (22) Right flank pain Status: Acute (23) Sepsis Status: Acute (24) Urethral pain Status: Acute (25) Urinary retention Status: Acute (26) Urinary retention Status: Acute (27) Urinary tract infection Status: Acute (28) Urinary tract infection Status: Acute (29) UTI (urinary tract infection) Status: Acute (30) UTI (urinary tract infection) Status: Acute (31) UTI (urinary tract infection) Status: Acute (32) UTI (urinary tract infection) Status: Acute (33) UTI (urinary tract infection) due to urinary indwelling catheter Status: Acute (34) Weakness Status: Acute Review of Systems Abdomen: + pain Male : + urinary frequency, + incontinence, + nocturia more than once/night Neurologic: + numbness/tingling Objective Vital Signs Last Vital Signs Documentation Date Time Temp Pulse Resp B/P (MAP) Pulse Ox O2 Delivery O2 Flow Rate FiO2 06/05/17 13:39 87 20 93 Nasal Cannula 2.0 06/05/17 11:58 36.6 124/68 (86) 06/03/17 16:21 40 Physical Exam: General Appearance: no apparent distress, + obese ENT: hearing grossly normal Respiratory/Chest: lungs clear (Reduced wheezing, minimal crackles at bases), no respiratory distress Cardiovascular: regular rate, rhythm (Distant heart sounds), no murmur Abdomen: non tender, soft, + pertinent finding (Obese) Extremities: + swelling (One to 2+ to upper wheeler with signs of chronic stasis dermatitis) Neurologic/Psychiatric: alert, normal mood/affect, + pertinent finding Skin: normal color, warm/dry Assessment and Plan 1. Acute on chronic diastolic heart failure 2. Obesity hypoventilation syndrome/obstructive sleep apnea 3. Hypertension 4. Type 2 diabetes on insulin 5. Borderline renal insufficiency 6. Dyslipidemia Improved respiratory status today with on going IV diuresis. I/Os not accurate but recorded weight down 3 kg. Renal function stable --continue Lasix 40 mg IV b.i.d. today --possible transition to p.o. diuretics tomorrow --hold on a.m. metolazone --continue to follow daily weights, renal function --will continue to follow Medications: Current Inpatient Medications Medications (Trade) Dose Ordered Sig/Bj Route Start Time Stop Time Status Last Admin Dose Admin Enoxaparin Sodium (Lovenox Inj) 40 mg Q24H SC 06/03/17 21:00 07/03/17 20:59 06/04/17 21:03 40 MG Acetaminophen (Tylenol Tab) 650 mg Q4H PRN PO 06/03/17 16:15 07/03/17 16:14 06/05/17 01:52 650 MG Ondansetron HCl (Zofran Inj) 4 mg Q6H PRN IV 06/03/17 16:15 07/03/17 16:14 Albuterol/ Ipratropium (Duoneb) 3 ml Q6R INH 06/03/17 21:00 07/03/17 20:59 06/05/17 13:38 3 ML Furosemide 40 mg/ Syringe 4 ml @ 4 mls/min BID IV 06/04/17 09:00 07/04/17 08:59 06/05/17 09:52 4 MLS/MIN Aspirin (Ecotrin Tab) 81 mg DAILY PO 06/04/17 09:00 07/04/17 08:59 06/05/17 09:52 81 MG Finasteride (Proscar Tab) 5 mg QAM PO 06/04/17 09:00 07/04/17 08:59 06/05/17 09:53 5 MG Folic Acid (Folvite Tab) 1 mg DAILY PO 06/04/17 09:00 07/04/17 08:59 06/05/17 09:53 1 MG Gabapentin (Neurontin Cap) 300 mg BID PO 06/03/17 21:00 07/03/17 20:59 06/05/17 09:53 300 MG Magnesium Oxide (Mag-Ox Tab) 400 mg DAILY PO 06/04/17 09:00 07/04/17 08:59 06/05/17 09:53 400 MG Metolazone (Zaroxolyn Tab) 5 mg TuTh@0830 PO 06/04/17 08:30 07/04/17 08:29 06/04/17 07:15 5 MG Metoprolol Tartrate (Lopressor Tab) 12.5 mg BID PO 06/03/17 21:00 07/03/17 20:59 06/05/17 09:52 12.5 MG Modafinil (proVIGIL TAB) 100 mg QAM PO 06/04/17 09:00 07/04/17 08:59 06/05/17 10:09 100 MG Multivitamins (Multivitamin Tab) 1 tab DAILY PO 06/04/17 09:00 07/04/17 08:59 06/05/17 09:53 1 TAB Potassium Chloride (Klor-Con Tab) 20 meq BID PO 06/03/17 21:00 07/03/17 20:59 06/05/17 09:54 20 MEQ Simvastatin (Zocor Tab) 40 mg PM PO 06/03/17 21:00 07/03/17 20:59 06/04/17 21:06 40 MG Tamsulosin HCl (Flomax Cap) 0.4 mg HS PO 06/03/17 21:00 07/03/17 20:59 06/04/17 21:05 0.4 MG Venlafaxine HCl (effeXOR TAB) 75 mg BID PO 06/03/17 21:00 07/03/17 20:59 06/05/17 09:53 75 MG Pantoprazole Sodium (Protonix Tab) 40 mg QAM PO 06/04/17 09:00 07/04/17 08:59 06/05/17 09:53 40 MG Insulin Glargine (Lantus Solostar Pen) 15 units HS SC 06/03/17 21:00 07/03/17 20:59 06/04/17 21:13 15 UNITS Insulin Aspart (novoLOG ASPART) SLIDING SCALE If C... ACHS SC 06/03/17 21:00 07/03/17 20:59 06/05/17 10:02 8 UNITS Glucose (Glucose 40% Gel) 15-30 GRAMS 15 GRAMS... UD PRN PO 06/03/17 17:15 07/03/17 17:14 Glucose (Glucose Chew Tab) 4-8 Tablets 4 Tabl... UD PRN PO 06/03/17 17:15 07/03/17 17:14 Dextrose (Dextrose 50% 50ML Syringe) 25-50ML OF 50% DW IV FOR... UD PRN IV 06/03/17 17:15 07/03/17 17:14 Glucagon (Glucagon Inj) 1 mg UD PRN SQ 06/03/17 17:15 07/03/17 17:14 Miscellaneous Information (Consult Glycemic Management Pharmacy) 1 ea UD PRN N/A 06/03/17 18:55 07/03/17 18:54 Miconazole Nitrate (Desenex Powder) 1 appln PRN PRN EXT 06/03/17 19:30 07/03/17 19:29 Guaifenesin (Robitussin Sugar Free Syrup) 100 mg Q6H PRN PO 06/05/17 01:45 07/05/17 01:44 Lab Results: 06/05/17 07:14 06/05/17 07:14 Test 06/04/17 16:34 06/05/17 07:14 06/05/17 11:33 Stool Occult Blood NEGATIVE (NEGATIVE) Red Blood Count 3.95 M/uL (4.7-6.1) Mean Corpuscular Volume 76.5 fL (80-100) Mean Corpuscular Hemoglobin 22.0 pg (25-34) Mean Corpuscular Hemoglobin Concent 28.8 g/dl (32-36) RDW Standard Deviation 52.0 fL (36.4-46.3) RDW Coefficient of Variation 18.3 % (11.5-14.5) Mean Platelet Volume 9.5 fL (7.4-10.4) Anion Gap 5.0 mmol/L (3-11) Est Creatinine Clear Calc Drug Dose 73.8 ml/min Estimated GFR () 71.7 Estimated GFR (Non- 61.9 BUN/Creatinine Ratio 13.0 (10-20) Calcium Level 8.6 mg/dl (8.5-10.1) Bedside Glucose 79 mg/dl (70-99)
--- NOTE | 2017-06-05 19:33 | Progress Note ---
Medicine Progress Note Date & Time of Visit: Jun 05, 2017 at 19:33. Subjective Patient reports feeling better, his brought his scooter chair to the hospital today but did not bring his BiPap because he forgot to ask. Has not used bipap at the hospital due to not tolerating the mask here. No overnight events noted. Feels his breathing and leg edema are better. Objective Last 8 Hrs Date Time Temp Pulse Resp B/P (MAP) Pulse Ox O2 Delivery O2 Flow Rate FiO2 06/05/17 16:20 Nasal Cannula 2.0 06/05/17 15:59 36.6 86 16 130/66 (87) 91 06/05/17 13:39 87 20 93 Nasal Cannula 2.0 06/05/17 12:22 92 Room Air 06/05/17 12:14 Room Air 06/05/17 11:58 36.6 84 19 124/68 (86) 97 Nasal Cannula 2.0 06/05/17 11:48 36.6 72 20 98/47 (64) 92 Nasal Cannula 2.0 Physical Exam: GENERAL: Patient is in no acute distress. HEENT: No acute trauma, normocephalic, mucous membranes moist, no nasal congestion, no scleral icterus, conjunctivae clear. NECK: No stridor, trachea is midline. LUNGS: Diminished breath sounds bilaterally, no wheeze, no rhonchi, breath sounds equal. HEART: Without murmurs gallops or rubs, regular rate and rhythm. ABDOMEN: Soft, nontender, bowel sounds positive, obese EXTREMITIES: No cyanosis; B/L LE edema NEUROLOGIC: Oriented x 3, no acute motor or sensory deficits, no focal weakness. SKIN: No rash, no jaundice, no diaphoresis. B/L LE erythematous, stasis skin changes present Laboratory Results: Last 24 Hours Test 06/04/17 20:03 06/05/17 06:29 06/05/17 07:14 06/05/17 11:33 Bedside Glucose 170 mg/dl 166 mg/dl 79 mg/dl White Blood Count 6.87 K/uL Red Blood Count 3.95 M/uL Hemoglobin 8.7 g/dL Hematocrit 30.2 % Mean Corpuscular Volume 76.5 fL Mean Corpuscular Hemoglobin 22.0 pg Mean Corpuscular Hemoglobin Concent 28.8 g/dl RDW Standard Deviation 52.0 fL RDW Coefficient of Variation 18.3 % Platelet Count 281 K/uL Mean Platelet Volume 9.5 fL Sodium Level 135 mmol/L Potassium Level 4.0 mmol/L Chloride Level 95 mmol/L Carbon Dioxide Level 35 mmol/L Anion Gap 5.0 mmol/L Blood Urea Nitrogen 15 mg/dl Creatinine 1.15 mg/dl Est Creatinine Clear Calc Drug Dose 73.8 ml/min Estimated GFR () 71.7 Estimated GFR (Non- 61.9 BUN/Creatinine Ratio 13.0 Random Glucose 146 mg/dl Calcium Level 8.6 mg/dl Assessment & Plan ENCEPHALOPATHY ACUTE ON CHRONIC HYPOXIC RESPIRATORY FAILURE: -likely related to Acute on chronic diastolic CHF exacerbation and OHS/GILLES with poor compliance issues with meds and bipap at home -patient presented with increasing shortness of breath the last 2 days; on ER he was found to be hypoxic on room air at 85% which improved with 3L via NC -CXR: suggestive of CHF -continued on Lasix 40mg IV BID -recommended BiPap for both ABG and CHF but patient has been refusing -was on two times a week metolazone but this was held per Cardio -daily weights, I's & O's, low Na+ diet -staff were unable to get a rodriguez placed -Cardiology consulted, appreciate input -recent TTE: 04/2017 - EF 60-65%, grade II diastolic dysfunction, mild TR -Cr slowly trending up, 1.15 today, monitor closely ANEMIA: -patient's baseline hgb ~ 9-10 -8.9-->8.7 today -no signs of bleeding -check iron studies -monitor DM TYPE II: -HbA1c: 7.9% 04/2017 -continue Lantus + SSI HTN: -BP controlled; low/normotensive -continue metoprolol BPH: -continue finasteride and tamsulosin -also has chronic incontinence but was not able to get a rodriguez catheter placed CHRONIC RIGHT SHOULDER DISLOCATION: -noted on XR, unchanged from prior Current Inpatient Medications: Current Inpatient Medications Medications (Trade) Dose Ordered Sig/Bj Route Start Time Stop Time Status Last Admin Dose Admin Enoxaparin Sodium (Lovenox Inj) 40 mg Q24H SC 06/03/17 21:00 07/03/17 20:59 06/04/17 21:03 40 MG Acetaminophen (Tylenol Tab) 650 mg Q4H PRN PO 06/03/17 16:15 07/03/17 16:14 06/05/17 01:52 650 MG Ondansetron HCl (Zofran Inj) 4 mg Q6H PRN IV 06/03/17 16:15 07/03/17 16:14 Albuterol/ Ipratropium (Duoneb) 3 ml Q6R INH 06/03/17 21:00 07/03/17 20:59 06/05/17 13:38 3 ML Furosemide 40 mg/ Syringe 4 ml @ 4 mls/min BID IV 06/04/17 09:00 07/04/17 08:59 06/05/17 09:52 4 MLS/MIN Aspirin (Ecotrin Tab) 81 mg DAILY PO 06/04/17 09:00 07/04/17 08:59 06/05/17 09:52 81 MG Finasteride (Proscar Tab) 5 mg QAM PO 06/04/17 09:00 07/04/17 08:59 06/05/17 09:53 5 MG Folic Acid (Folvite Tab) 1 mg DAILY PO 06/04/17 09:00 07/04/17 08:59 06/05/17 09:53 1 MG Gabapentin (Neurontin Cap) 300 mg BID PO 06/03/17 21:00 07/03/17 20:59 06/05/17 09:53 300 MG Magnesium Oxide (Mag-Ox Tab) 400 mg DAILY PO 06/04/17 09:00 07/04/17 08:59 06/05/17 09:53 400 MG Metolazone (Zaroxolyn Tab) 5 mg TuTh@0830 PO 06/04/17 08:30 07/04/17 08:29 Future Hold 06/04/17 07:15 5 MG Metoprolol Tartrate (Lopressor Tab) 12.5 mg BID PO 06/03/17 21:00 07/03/17 20:59 06/05/17 09:52 12.5 MG Modafinil (proVIGIL TAB) 100 mg QAM PO 06/04/17 09:00 07/04/17 08:59 06/05/17 10:09 100 MG Multivitamins (Multivitamin Tab) 1 tab DAILY PO 06/04/17 09:00 07/04/17 08:59 06/05/17 09:53 1 TAB Potassium Chloride (Klor-Con Tab) 20 meq BID PO 06/03/17 21:00 07/03/17 20:59 06/05/17 09:54 20 MEQ Simvastatin (Zocor Tab) 40 mg PM PO 06/03/17 21:00 07/03/17 20:59 06/04/17 21:06 40 MG Tamsulosin HCl (Flomax Cap) 0.4 mg HS PO 06/03/17 21:00 07/03/17 20:59 06/04/17 21:05 0.4 MG Venlafaxine HCl (effeXOR TAB) 75 mg BID PO 06/03/17 21:00 07/03/17 20:59 06/05/17 09:53 75 MG Pantoprazole Sodium (Protonix Tab) 40 mg QAM PO 06/04/17 09:00 07/04/17 08:59 06/05/17 09:53 40 MG Insulin Glargine (Lantus Solostar Pen) 15 units HS SC 06/03/17 21:00 07/03/17 20:59 06/04/17 21:13 15 UNITS Insulin Aspart (novoLOG ASPART) SLIDING SCALE If C... ACHS SC 06/03/17 21:00 07/03/17 20:59 06/05/17 17:05 7 UNITS Glucose (Glucose 40% Gel) 15-30 GRAMS 15 GRAMS... UD PRN PO 06/03/17 17:15 07/03/17 17:14 Glucose (Glucose Chew Tab) 4-8 Tablets 4 Tabl... UD PRN PO 06/03/17 17:15 07/03/17 17:14 Dextrose (Dextrose 50% 50ML Syringe) 25-50ML OF 50% DW IV FOR... UD PRN IV 06/03/17 17:15 07/03/17 17:14 Glucagon (Glucagon Inj) 1 mg UD PRN SQ 06/03/17 17:15 07/03/17 17:14 Miscellaneous Information (Consult Glycemic Management Pharmacy) 1 ea UD PRN N/A 06/03/17 18:55 07/03/17 18:54 Miconazole Nitrate (Desenex Powder) 1 appln PRN PRN EXT 06/03/17 19:30 07/03/17 19:29 Guaifenesin (Robitussin Sugar Free Syrup) 100 mg Q6H PRN PO 06/05/17 01:45 07/05/17 01:44
[2017-06-05] MEDS: ENOXAPARIN 40 MG/0.4 ML SYR SC SCH (20:17)
[2017-06-05] MEDS: TAMSULOSIN HCL 0.4 MG CAP PO SCH (20:18)
[2017-06-05] MEDS: SIMVASTATIN 40 MG TAB PO SCH (20:20)
[2017-06-05] MEDS: INSULIN GLARGINE SOLOSTAR 100 UNITS/ML 3 ML PEN SC SCH (20:43)
[2017-06-06] MEDS: ACETAMINOPHEN 325 MG TAB PO PRN ×2 (01:22→20:11)
[2017-06-06] MEDS: ALBUT/IPRATROP 3MG/0.5MG NEB 3 ML VIAL INH SCH ×2 (02:13→07:30)
[2017-06-06 03:58] VITALS: BP 92/53; PULSE 73; TEMP 36.3; O2SAT 91
[2017-06-06 06:27] LABS: HEMATOCRIT 32.6 % (42-52); HEMOGLOBIN 9.4 g/dL (14.0-18.0); MEAN CELL VOLUME 76.5 fL (80-100); MEAN CORPUSCULAR HEMOGLOBIN 22.1 pg (25-34); MEAN CORPUSCULAR HGB CONC 28.8 g/dl (32-36); MEAN PLATELET VOLUME 8.8 fL (7.4-10.4); PLATELET COUNT 230 K/uL (130-400); RED CELL DISTRIBUTION WIDTH CV 18.4 % (11.5-14.5); RED CELL DISTRIBUTION WIDTH SD 51.2 fL (36.4-46.3); WHITE BLOOD COUNT 7.08 K/uL (4.8-10.8)
[2017-06-06 06:51] LABS: CALCIUM 8.7 mg/dl (8.5-10.1); CREATININE 1.29 mg/dl (0.60-1.40); POTASSIUM 3.7 mmol/L (3.5-5.1)
[2017-06-06 07:50] VITALS: BP 143/83; PULSE 78; TEMP 36.3; O2SAT 99
[2017-06-06] MEDS ORDERED: INSULIN GLARGINE SOLOSTAR 100 UNITS/ML 3 ML PEN SC ONE (08:00)
[2017-06-06] MEDS: METOPROLOL TARTRATE 25 MG TAB PO SCH ×2 (08:20→20:02)
[2017-06-06] MEDS: GABAPENTIN 300 MG CAP PO SCH ×2 (08:20→20:02)
[2017-06-06] MEDS: POTASSIUM CHLORIDE 20 MEQ TABCR PO SCH ×2 (08:20→19:59)
[2017-06-06] MEDS: MULTIVITAMIN TAB PO SCH (08:21)
[2017-06-06] MEDS: FINASTERIDE 5 MG TAB PO SCH (08:21)
[2017-06-06] MEDS: PANTOprazole SOD 40 MG TAB PO SCH (08:21)
[2017-06-06] MEDS: ASPIRIN 81 MG ECTAB PO SCH (08:21)
[2017-06-06] MEDS: MAGNESIUM OXIDE 400 MG TAB PO SCH (08:21)
[2017-06-06] MEDS: VENLAFAXINE HCL 50 MG TAB PO SCH ×2 (08:22→19:59)
[2017-06-06] MEDS: INSULIN ASPART 100 UNITS/ML 3 ML PEN SC SCH ×4 (08:26→21:22)
[2017-06-06] MEDS: MODAFINIL 100 MG TAB PO SCH (08:37)
[2017-06-06] MEDS: FUROSEMIDE INJ 40 MG in SYRINGE 0 ML IV SCH ×2 (08:37→20:11)
[2017-06-06 11:36] VITALS: BP 126/66; PULSE 66; TEMP 36.4; O2SAT 90
[2017-06-06] MEDS: IPRATROPIUM BROMIDE/ALBUTEROL respimat INH INH SCH ×3 (12:23→23:31)
--- NOTE | 2017-06-06 14:46 | Pharmacy Progress Note ---
Pharmacy Glycemic Short Note 2 Date of Service Jun 06, 2017. Outpatient Anti-diabetic Regimen: * Lantus 25 units SQ HS * NovoLog 10 units SQ TIDM + SSI * HbA1c: 7.9% (04/29/17) ASSESSMENT: 06/06/17: * Patient's Lantus dose was reduced on admission for NPO status. Now that patient has been tolerating diet, BSGs have been increasing. * Will titrate Lantus back up toward home dose. * Novolog parameters loosened slightly yesterday to avoid over-correcting at meal times. These parameters appear to be appropriate. 06/04/17 * 76yo T2DM male well known to pharmacy from previous admissions/glycemic consults * Patient uses SQ basal bolus insulin regimen as an outpatient. Lantus is dosed once daily at HS * Pt is currently NPO, will continue daily dosing of Lantus but reduce dosing for NPO * Will use CF/CR similar to previous admission * BSGs have been well controlled thus far, so no changes required at this time. PLAN FOR INPATIENT GLYCEMIC CONTROL: * Basal insulin * Lantus 20 units SQ HS * Bolus insulin * NovoLog per scale ACHS or Q6hrs while NPO * Goal Range: Low 110 mg/dL - High 150 mg/dL * Correction Factor: 30 mg/dL/unit * Nutritional / Prandial insulin per carb ratio of 1 unit per 10 grams CHO consumed PLAN FOR DISCHARGE: * Pt with significant A1c improvement over the past 6 months... A1c 10.1% in January 2017 down to 7.9% in April 2017 * Do not anticipate that pt will require changes to outpt regimen on discharge. * Please note that the plan above was derived based on current level of insulin resistance and hospital stress. These recommendations are appropriate for inpatient admission only. Plan of care upon discharge will need to be reassessed to avoid potential outpatient hypo/hyperglycemia. Thank you.
--- NOTE | 2017-06-06 15:09 | Cardiology Follow-Up ---
Subjective Subjective Date of Service: Jun 06, 2017. Pt evaluation today including: conversation w/ patient, physical exam, chart review, lab review, review of studies, review of inpatient medication list Additional Details: Feeling well. Breathing comfortably, lying flat, off oxygen. No other new concerns. Tele reviewed -- no events. Problem List Medical Problems: (1) Acute urinary retention Status: Acute (2) Altered mental status Status: Acute (3) Altered mental status Status: Acute (4) Altered mental status Status: Acute (5) Bronchitis Status: Acute (6) CHF (congestive heart failure) Status: Acute (7) CHF (congestive heart failure) Status: Acute (8) CO2 retention Status: Acute (9) Complication of catheter Status: Acute (10) Congestive heart failure Status: Acute (11) Dystonic drug reaction Status: Acute (12) Failure to thrive Status: Acute (13) Hypercarbia Status: Acute (14) Hypoglycemia Status: Acute (15) Hypoxemia Status: Acute (16) Hypoxemia Status: Acute (17) Hypoxia Status: Acute (18) Hypoxia Status: Acute (19) Malfunction of Osorio catheter Status: Acute (20) Pneumonia Status: Acute (21) Respiratory acidosis Status: Acute (22) Right flank pain Status: Acute (23) Sepsis Status: Acute (24) Urethral pain Status: Acute (25) Urinary retention Status: Acute (26) Urinary retention Status: Acute (27) Urinary tract infection Status: Acute (28) Urinary tract infection Status: Acute (29) UTI (urinary tract infection) Status: Acute (30) UTI (urinary tract infection) Status: Acute (31) UTI (urinary tract infection) Status: Acute (32) UTI (urinary tract infection) Status: Acute (33) UTI (urinary tract infection) due to urinary indwelling catheter Status: Acute (34) Weakness Status: Acute Review of Systems Constitutional: No fever Respiratory: No cough, No shortness of breath Cardiac: No chest pain Abdomen: No pain Male : + urinary frequency, + incontinence, + nocturia more than once/night Neurologic: + numbness/tingling Skin: + rash Objective Vital Signs Last Vital Signs Documentation Date Time Temp Pulse Resp B/P (MAP) Pulse Ox O2 Delivery O2 Flow Rate FiO2 06/06/17 12:02 Room Air 06/06/17 11:36 36.4 66 18 126/66 (86) 90 06/06/17 07:50 2.0 06/03/17 16:21 40 Physical Exam: General Appearance: no apparent distress, + obese ENT: hearing grossly normal Respiratory/Chest: lungs clear, no respiratory distress Cardiovascular: regular rate, rhythm (Distant heart sounds), no murmur Abdomen: non tender, soft, + pertinent finding (Massively obses) Extremities: + swelling (One to 2+ to upper wheeler with signs of chronic stasis dermatitis, distal LE findings consistent with lymphedema) Neurologic/Psychiatric: alert, normal mood/affect, + pertinent finding Skin: normal color, warm/dry Assessment and Plan 1. Acute on chronic diastolic heart failure 2. Obesity hypoventilation syndrome/obstructive sleep apnea 3. Hypertension 4. Type 2 diabetes on insulin 5. Borderline renal insufficiency 6. Dyslipidemia Off oxygen, breathing comfortably, down 5 Kg since admission. SCr/HCO3 slightly up. Approaching euvolemia. --transition IV lasix to PO lasix 40mg BID --continue to follow daily weights, renal function -- Home on lasix 40mg BID and metalozone 2x/wk --close follow-up with PCP and Dr. Abraham. Medications: Current Inpatient Medications Medications (Trade) Dose Ordered Sig/Bj Route Start Time Stop Time Status Last Admin Dose Admin Enoxaparin Sodium (Lovenox Inj) 40 mg Q24H SC 06/03/17 21:00 07/03/17 20:59 06/05/17 20:17 40 MG Acetaminophen (Tylenol Tab) 650 mg Q4H PRN PO 06/03/17 16:15 07/03/17 16:14 06/06/17 01:22 650 MG Ondansetron HCl (Zofran Inj) 4 mg Q6H PRN IV 06/03/17 16:15 07/03/17 16:14 Furosemide 40 mg/ Syringe 4 ml @ 4 mls/min BID IV 06/04/17 09:00 07/04/17 08:59 06/06/17 08:37 4 MLS/MIN Aspirin (Ecotrin Tab) 81 mg DAILY PO 06/04/17 09:00 07/04/17 08:59 06/06/17 08:21 81 MG Finasteride (Proscar Tab) 5 mg QAM PO 06/04/17 09:00 07/04/17 08:59 06/06/17 08:21 5 MG Folic Acid (Folvite Tab) 1 mg DAILY PO 06/04/17 09:00 07/04/17 08:59 06/06/17 08:21 1 MG Gabapentin (Neurontin Cap) 300 mg BID PO 06/03/17 21:00 07/03/17 20:59 06/06/17 08:20 300 MG Magnesium Oxide (Mag-Ox Tab) 400 mg DAILY PO 06/04/17 09:00 07/04/17 08:59 06/06/17 08:21 400 MG Metolazone (Zaroxolyn Tab) 5 mg TuTh@0830 PO 06/04/17 08:30 07/04/17 08:29 Future Hold 06/04/17 07:15 5 MG Metoprolol Tartrate (Lopressor Tab) 12.5 mg BID PO 06/03/17 21:00 07/03/17 20:59 06/06/17 08:20 12.5 MG Modafinil (proVIGIL TAB) 100 mg QAM PO 06/04/17 09:00 07/04/17 08:59 06/06/17 08:37 100 MG Multivitamins (Multivitamin Tab) 1 tab DAILY PO 06/04/17 09:00 07/04/17 08:59 06/06/17 08:21 1 TAB Potassium Chloride (Klor-Con Tab) 20 meq BID PO 06/03/17 21:00 07/03/17 20:59 06/06/17 08:20 20 MEQ Simvastatin (Zocor Tab) 40 mg PM PO 06/03/17 21:00 07/03/17 20:59 06/05/17 20:20 40 MG Tamsulosin HCl (Flomax Cap) 0.4 mg HS PO 06/03/17 21:00 07/03/17 20:59 06/05/17 20:18 0.4 MG Venlafaxine HCl (effeXOR TAB) 75 mg BID PO 06/03/17 21:00 07/03/17 20:59 06/06/17 08:22 75 MG Pantoprazole Sodium (Protonix Tab) 40 mg QAM PO 06/04/17 09:00 07/04/17 08:59 06/06/17 08:21 40 MG Insulin Aspart (novoLOG ASPART) SLIDING SCALE If C... ACHS SC 06/03/17 21:00 07/03/17 20:59 06/06/17 12:27 6 UNITS Glucose (Glucose 40% Gel) 15-30 GRAMS 15 GRAMS... UD PRN PO 06/03/17 17:15 07/03/17 17:14 Glucose (Glucose Chew Tab) 4-8 Tablets 4 Tabl... UD PRN PO 06/03/17 17:15 07/03/17 17:14 Dextrose (Dextrose 50% 50ML Syringe) 25-50ML OF 50% DW IV FOR... UD PRN IV 06/03/17 17:15 07/03/17 17:14 Glucagon (Glucagon Inj) 1 mg UD PRN SQ 06/03/17 17:15 07/03/17 17:14 Miscellaneous Information (Consult Glycemic Management Pharmacy) 1 ea UD PRN N/A 06/03/17 18:55 07/03/17 18:54 Miconazole Nitrate (Desenex Powder) 1 appln PRN PRN EXT 06/03/17 19:30 07/03/17 19:29 Guaifenesin (Robitussin Sugar Free Syrup) 100 mg Q6H PRN PO 06/05/17 01:45 07/05/17 01:44 Albuterol/ Ipratropium (Combivent Respimat Inh) 1 puffs Q6 INH 06/06/17 12:00 07/06/17 11:59 06/06/17 12:23 1 PUFFS Insulin Glargine (Lantus Solostar Pen) 20 units HS SC 06/06/17 21:00 07/06/17 20:59 Lab Results: 06/06/17 05:57 06/06/17 05:57 Test 06/06/17 05:57 06/06/17 11:24 Red Blood Count 4.26 M/uL (4.7-6.1) Mean Corpuscular Volume 76.5 fL (80-100) Mean Corpuscular Hemoglobin 22.1 pg (25-34) Mean Corpuscular Hemoglobin Concent 28.8 g/dl (32-36) RDW Standard Deviation 51.2 fL (36.4-46.3) RDW Coefficient of Variation 18.4 % (11.5-14.5) Mean Platelet Volume 8.8 fL (7.4-10.4) Anion Gap 2.0 mmol/L (3-11) Est Creatinine Clear Calc Drug Dose 65.2 ml/min Estimated GFR () 62.4 Estimated GFR (Non- 53.9 BUN/Creatinine Ratio 12.2 (10-20) Calcium Level 8.7 mg/dl (8.5-10.1) Magnesium Level 2.0 mg/dl (1.8-2.4) Bedside Glucose 103 mg/dl (70-99)
[2017-06-06 15:25] VITALS: BP 137/72; PULSE 71; TEMP 36.2; O2SAT 88
--- NOTE | 2017-06-06 19:07 | Progress Note ---
Medicine Progress Note Date & Time of Visit: Jun 06, 2017 at 19:07. Subjective Patient has been incontinent of urine many times today, at home he normally wears a brief. No other complaints, states he feels fine and is looking forward to going home. No overnight events noted. Objective Last 8 Hrs Date Time Temp Pulse Resp B/P (MAP) Pulse Ox O2 Delivery O2 Flow Rate FiO2 06/06/17 16:23 Room Air 06/06/17 15:25 36.2 71 137/72 (93) 88 Room Air 06/06/17 12:02 Room Air 06/06/17 11:36 36.4 66 18 126/66 (86) 90 Room Air Physical Exam: GENERAL: Patient is in no acute distress. HEENT: No acute trauma, normocephalic, mucous membranes moist, no nasal congestion, no scleral icterus, conjunctivae clear. NECK: No stridor, trachea is midline. LUNGS: Diminished breath sounds bilaterally, no wheeze, no rhonchi, breath sounds equal. HEART: Without murmurs gallops or rubs, regular rate and rhythm. ABDOMEN: Soft, nontender, bowel sounds positive, obese EXTREMITIES: No cyanosis; B/L LE edema improving NEUROLOGIC: Oriented x 3, no acute motor or sensory deficits, no focal weakness. SKIN: No rash, no jaundice, no diaphoresis. B/L LE erythematous, stasis skin changes present, erythema on both LE Laboratory Results: Last 24 Hours Test 06/05/17 20:41 06/06/17 05:57 06/06/17 06:39 06/06/17 11:24 Bedside Glucose 206 mg/dl 167 mg/dl 103 mg/dl White Blood Count 7.08 K/uL Red Blood Count 4.26 M/uL Hemoglobin 9.4 g/dL Hematocrit 32.6 % Mean Corpuscular Volume 76.5 fL Mean Corpuscular Hemoglobin 22.1 pg Mean Corpuscular Hemoglobin Concent 28.8 g/dl RDW Standard Deviation 51.2 fL RDW Coefficient of Variation 18.4 % Platelet Count 230 K/uL Mean Platelet Volume 8.8 fL Sodium Level 135 mmol/L Potassium Level 3.7 mmol/L Chloride Level 94 mmol/L Carbon Dioxide Level 40 mmol/L Anion Gap 2.0 mmol/L Blood Urea Nitrogen 16 mg/dl Creatinine 1.29 mg/dl Est Creatinine Clear Calc Drug Dose 65.2 ml/min Estimated GFR () 62.4 Estimated GFR (Non- 53.9 BUN/Creatinine Ratio 12.2 Random Glucose 141 mg/dl Calcium Level 8.7 mg/dl Magnesium Level 2.0 mg/dl Test 06/06/17 16:31 Bedside Glucose 101 mg/dl Assessment & Plan ENCEPHALOPATHY ACUTE ON CHRONIC HYPOXIC RESPIRATORY FAILURE: -likely related to Acute on chronic diastolic CHF exacerbation and OHS/GILLES with poor compliance issues with meds and bipap at home -patient presented with increasing shortness of breath the last 2 days; on ER he was found to be hypoxic on room air at 85% which improved with 3L via NC -CXR: suggestive of CHF -continued on Lasix 40mg IV BID, will change to PO tomorrow -recommended BiPap for both ABG and CHF but patient has been refusing -was on two times a week metolazone but this was held per Cardio -daily weights, I's & O's, low Na+ diet -staff were unable to get a rodriguez placed -Cardiology consulted, appreciate input -recent TTE: 04/2017 - EF 60-65%, grade II diastolic dysfunction, mild TR -Cr slowly trending up, 1.15-->1.29 today, monitor closely -also has Bicarb trending up; likely multifactorial from diuresis and from OHS/ GILLES, may consider acetazolamide for short term depending on AM labs ANEMIA: -patient's baseline hgb ~ 9-10 -8.9-->8.7-->9.4 today -no signs of bleeding -monitor DM TYPE II: -HbA1c: 7.9% 04/2017 -continue Lantus + SSI HTN: -BP controlled; low/normotensive -continue metoprolol BPH: -continue finasteride and tamsulosin -also has chronic incontinence but was not able to get a rodriguez catheter placed CHRONIC RIGHT SHOULDER DISLOCATION: -noted 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, unchanged from prior Current Inpatient Medications: Current Inpatient Medications Medications (Trade) Dose Ordered Sig/Bj Route Start Time Stop Time Status Last Admin Dose Admin Enoxaparin Sodium (Lovenox Inj) 40 mg Q24H SC 06/03/17 21:00 07/03/17 20:59 06/05/17 20:17 40 MG Acetaminophen (Tylenol Tab) 650 mg Q4H PRN PO 06/03/17 16:15 07/03/17 16:14 06/06/17 01:22 650 MG Ondansetron HCl (Zofran Inj) 4 mg Q6H PRN IV 06/03/17 16:15 07/03/17 16:14 Furosemide 40 mg/ Syringe 4 ml @ 4 mls/min BID IV 06/04/17 09:00 07/04/17 08:59 06/06/17 08:37 4 MLS/MIN Aspirin (Ecotrin Tab) 81 mg DAILY PO 06/04/17 09:00 07/04/17 08:59 06/06/17 08:21 81 MG Finasteride (Proscar Tab) 5 mg QAM PO 06/04/17 09:00 07/04/17 08:59 06/06/17 08:21 5 MG Folic Acid (Folvite Tab) 1 mg DAILY PO 06/04/17 09:00 07/04/17 08:59 06/06/17 08:21 1 MG Gabapentin (Neurontin Cap) 300 mg BID PO 06/03/17 21:00 07/03/17 20:59 06/06/17 08:20 300 MG Magnesium Oxide (Mag-Ox Tab) 400 mg DAILY PO 06/04/17 09:00 07/04/17 08:59 06/06/17 08:21 400 MG Metolazone (Zaroxolyn Tab) 5 mg TuTh@0830 PO 06/04/17 08:30 07/04/17 08:29 Future Hold 06/04/17 07:15 5 MG Metoprolol Tartrate (Lopressor Tab) 12.5 mg BID PO 06/03/17 21:00 07/03/17 20:59 06/06/17 08:20 12.5 MG Modafinil (proVIGIL TAB) 100 mg QAM PO 06/04/17 09:00 07/04/17 08:59 06/06/17 08:37 100 MG Multivitamins (Multivitamin Tab) 1 tab DAILY PO 06/04/17 09:00 07/04/17 08:59 06/06/17 08:21 1 TAB Potassium Chloride (Klor-Con Tab) 20 meq BID PO 06/03/17 21:00 07/03/17 20:59 06/06/17 08:20 20 MEQ Simvastatin (Zocor Tab) 40 mg PM PO 06/03/17 21:00 07/03/17 20:59 06/05/17 20:20 40 MG Tamsulosin HCl (Flomax Cap) 0.4 mg HS PO 06/03/17 21:00 07/03/17 20:59 06/05/17 20:18 0.4 MG Venlafaxine HCl (effeXOR TAB) 75 mg BID PO 06/03/17 21:00 07/03/17 20:59 06/06/17 08:22 75 MG Pantoprazole Sodium (Protonix Tab) 40 mg QAM PO 06/04/17 09:00 07/04/17 08:59 06/06/17 08:21 40 MG Insulin Aspart (novoLOG ASPART) SLIDING SCALE If C... ACHS SC 06/03/17 21:00 07/03/17 20:59 06/06/17 17:27 5 UNITS Glucose (Glucose 40% Gel) 15-30 GRAMS 15 GRAMS... UD PRN PO 06/03/17 17:15 07/03/17 17:14 Glucose (Glucose Chew Tab) 4-8 Tablets 4 Tabl... UD PRN PO 06/03/17 17:15 07/03/17 17:14 Dextrose (Dextrose 50% 50ML Syringe) 25-50ML OF 50% DW IV FOR... UD PRN IV 06/03/17 17:15 07/03/17 17:14 Glucagon (Glucagon Inj) 1 mg UD PRN SQ 06/03/17 17:15 07/03/17 17:14 Miscellaneous Information (Consult Glycemic Management Pharmacy) 1 ea UD PRN N/A 06/03/17 18:55 07/03/17 18:54 Miconazole Nitrate (Desenex Powder) 1 appln PRN PRN EXT 06/03/17 19:30 07/03/17 19:29 Guaifenesin (Robitussin Sugar Free Syrup) 100 mg Q6H PRN PO 06/05/17 01:45 07/05/17 01:44 Albuterol/ Ipratropium (Combivent Respimat Inh) 1 puffs Q6 INH 06/06/17 12:00 07/06/17 11:59 06/06/17 17:28 1 PUFFS Insulin Glargine (Lantus Solostar Pen) 20 units HS SC 06/06/17 21:00 07/06/17 20:59
[2017-06-06 19:30] VITALS: BP 145/69; PULSE 71; TEMP 36.2; O2SAT 98
[2017-06-06] MEDS: TAMSULOSIN HCL 0.4 MG CAP PO SCH (20:00)
[2017-06-06] MEDS: ENOXAPARIN 40 MG/0.4 ML SYR SC SCH (20:01)
[2017-06-06] MEDS: SIMVASTATIN 40 MG TAB PO SCH (20:02)
[2017-06-06] MEDS ORDERED: INSULIN GLARGINE SOLOSTAR 100 UNITS/ML 3 ML PEN SC SCH (21:00)
[2017-06-06 23:53] VITALS: BP 146/74; PULSE 75; TEMP 36.6; O2SAT 98
[2017-06-07 03:51] VITALS: BP 156/83; PULSE 75; TEMP 36.5; O2SAT 100
[2017-06-07] MEDS: ACETAMINOPHEN 325 MG TAB PO PRN (03:57)
[2017-06-07] MEDS: IPRATROPIUM BROMIDE/ALBUTEROL respimat INH INH SCH ×2 (06:09→12:10)
[2017-06-07 07:39] VITALS: BP 98/64; PULSE 70; TEMP 36.5; O2SAT 97
[2017-06-07] MEDS: INSULIN ASPART 100 UNITS/ML 3 ML PEN SC SCH ×2 (08:38→12:10)
[2017-06-07] MEDS: ASPIRIN 81 MG ECTAB PO SCH (08:38)
[2017-06-07] MEDS: POTASSIUM CHLORIDE 20 MEQ TABCR PO SCH (08:39)
[2017-06-07] MEDS: VENLAFAXINE HCL 50 MG TAB PO SCH (08:39)
[2017-06-07] MEDS: FINASTERIDE 5 MG TAB PO SCH (08:40)
[2017-06-07] MEDS: GABAPENTIN 300 MG CAP PO SCH (08:40)
[2017-06-07] MEDS: PANTOprazole SOD 40 MG TAB PO SCH (08:40)
[2017-06-07] MEDS: METOPROLOL TARTRATE 25 MG TAB PO SCH (08:40)
[2017-06-07] MEDS: MULTIVITAMIN TAB PO SCH (08:40)
[2017-06-07] MEDS: MAGNESIUM OXIDE 400 MG TAB PO SCH (08:41)
[2017-06-07] MEDS: MODAFINIL 100 MG TAB PO SCH (08:44)
[2017-06-07] MEDS ORDERED: FUROSEMIDE 40 MG TAB PO SCH (09:00)
[2017-06-07 09:38] LABS: HEMATOCRIT 33.8 % (42-52); HEMOGLOBIN 9.7 g/dL (14.0-18.0); MEAN CELL VOLUME 76.1 fL (80-100); MEAN CORPUSCULAR HEMOGLOBIN 21.8 pg (25-34); MEAN CORPUSCULAR HGB CONC 28.7 g/dl (32-36); MEAN PLATELET VOLUME 9.9 fL (7.4-10.4); PLATELET COUNT 279 K/uL (130-400); RED CELL DISTRIBUTION WIDTH SD 50.9 fL (36.4-46.3); WHITE BLOOD COUNT 6.22 K/uL (4.8-10.8)
[2017-06-07 09:50] LABS: CALCIUM 8.6 mg/dl (8.5-10.1); CREATININE 1.26 mg/dl (0.60-1.40); POTASSIUM 3.7 mmol/L (3.5-5.1)
[2017-06-07 11:20] VITALS: BP 149/73; PULSE 66; TEMP 36.5; O2SAT 100
[2017-06-07 12:00] VITALS: O2SAT 100
--- NOTE | 2017-06-07 14:04 | Discharge Summary ---
Discharge Summary Date of Service Jun 07, 2017. Discharge Summary Admission Date: Jun 03, 2017 at 16:12 Discharge Disposition: Home with services Principal Diagnosis: CHF exacerbation, Hypercapnia, Respiratory failure Pending Studies/Follow-Up: Follow up of Bipap use qHS; Cardiology follow up, renal failure Medication Reconciliation New Medications: Furosemide (Furosemide) 40 Mg Tab 40 MG PO BID17, #60 TAB Continued Medications: Acetaminophen (Tylenol) 500 Mg Tab 1000 MG PO Q6 PRN for Headache or Pain, TAB Aspirin (Aspirin Ec) 81 Mg Tab 81 MG PO DAILY Finasteride (Proscar) 5 Mg Tab 5 MG PO QAM, 0 Refills Folic Acid (Folvite) 1 Mg Tab 1 MG PO DAILY, TAB Gabapentin (Gabapentin) 300 Mg Cap 300 MG PO BID for 15 Days, #30 CAP 0 Refills Insulin Aspart (Novolog Flexpen) 100 Units/Ml Inj 10 UNITS SQ TIDM PLUS SLIDING SCALE Insulin Glargine (Lantus Solostar) 100 Unit/Ml Inj 25 UNITS SQ QPM, PEN Loperamide Hcl (Imodium) 2 Mg Cap 2 MG PO BID PRN for Diarrhea for 7 Days, #14 CAP Magnesium Oxide (Mag-Ox) 400 Mg Tab 400 MG PO DAILY for 7 Days, #7 TAB Metolazone (Zaroxolyn) 5 Mg Tab 5 MG PO 2XWK 1/2 hour prior to AM dose of Furosemide. PATIENT TAKES AND Metoprolol Tartrate (Lopressor) (Lopressor) 25 Mg Tab 12.5 MG PO BID, TAB Modafinil (Provigil) 100 Mg Tab 100 MG PO QAM for 15 Days Multivitamin (Multivitamin) Tab 1 TAB PO DAILY, TAB Nystatin-Triamcinolone (Nystatin/Triamcinolone) 1 Cre Cre 1 APPLN TOP BID, #15 GM 1 Refill Apply to groin and perineal area twice daily. Omeprazole (Prilosec) 20 Mg Capcr 20 MG PO QAM Potassium Ext Rel (Klor-Con) 20 Meq Tabcr 20 MEQ PO BID Simvastatin (Zocor) 80 Mg Tab 40 MG PO QPM, TAB Tamsulosin HCl (Tamsulosin HCl) 0.4 Mg Cap 1 CAP PO HS Venlafaxine Hcl (Effexor) 75 Mg Tab 75 MG PO BID Discontinued Medications: Furosemide (Lasix) 20 Mg Tab 20 MG PO BID, #30 TAB Admission Information HPI (per Admitting provider): 76 year old male who presents to the ED with shortness of breath. Patient was recently admitted to [facility] 04/28 - 05/08 for acute on chronic diastolic CHF. Patient was discharged on Lasix 20mg BID. Patient has a long standing history of non compliance, obesity hypoventilation, and GILLES on CPAP. At the time of my exam, patient is somewhat lethargic so history is limited. He reports increasing shortness of breath over the past couple of days. He has a dry non productive cough. He denies chest pain. He has lower extremity edema, he is unsure if it is worse than normal. No abdominal pain, nausea, vomiting, or diarrhea. He denies fever and chills. No urinary symptoms. In the ED, patient's CXR is suggesting CHF. He was hypoxic on room air at 85%. This improved with oxygen 3L via NC. He was also given Lasix 40mg IV. Physical Exam (per Admitting): General Appearance: + mild distress, + obese, + pertinent finding (lethargic , arouses to loud verbal stimuli) Eyes: normal inspection, EOMI, sclerae normal ENT: hearing grossly normal, + pertinent finding (mucous membranes moist) Neck: supple, trachea midline, + JVD Respiratory/Chest: + decreased breath sounds, + wheezing (end expiratory ), + pertinent finding (mild tachypnea and increased work of breathing ) Cardiovascular: regular rate, rhythm, normal peripheral pulses, + pertinent finding (+2 pitting edema BLLE) Abdomen/GI: normal bowel sounds, non tender, soft, no organomegaly Extremities/Musculoskelatal: normal inspection, no calf tenderness, normal capillary refill Neurologic/Psych: oriented x 3, + pertinent finding (lethargic, arouses to loud verbal stimuli but falls back to sleep quickly; no gross focal deficit noted) Skin: warm/dry, + pertinent finding (erythema noted to BLLE ) Hospital Course ENCEPHALOPATHY ACUTE ON CHRONIC HYPOXIC RESPIRATORY FAILURE: -likely related to Acute on chronic diastolic CHF exacerbation and OHS/GILLES with poor compliance issues with meds and bipap at home -patient presented with increasing shortness of breath the last 2 days; on ER he was found to be hypoxic on room air at 85% which improved with 3L via NC -CXR: suggestive of CHF -continued on Lasix 40mg IV BID, will change to PO, discharge on higher dose lasix per Cardio recommendations -recommended BiPap for both ABG and CHF but patient has been refusing -was on two times a week metolazone but this was held per Cardio -daily weights, I's & O's, low Na+ diet -staff were unable to get a rodriguez placed -Cardiology consulted, appreciate input -recent TTE: 04/2017 - EF 60-65%, grade II diastolic dysfunction, mild TR -Cr slowly trending up, 1.15-->1.29 today, monitor closely -also has Bicarb trending up; likely multifactorial from diuresis and from OHS/ GILLES, may consider acetazolamide for short term depending on AM labs ANEMIA: -patient's baseline hgb ~ 9-10 -8.9-->8.7-->9.4-->9.7 today -no signs of bleeding -monitor DM TYPE II: -HbA1c: 7.9% 04/2017 -continue Lantus + SSI HTN: -BP controlled; low/normotensive -continue metoprolol BPH: -continue finasteride and tamsulosin -also has chronic incontinence but was not able to get a rodriguez catheter placed CHRONIC RIGHT SHOULDER DISLOCATION: -noted on XR, unchanged from prior Total time spent on discharge = 37 This includes examination of the patient, discharge planning, medication reconciliation, and communication with other providers. Discharge Instructions See patient instructions
[2017-06-07] MEDS ORDERED: LSX40 PO (14:06)
--- NOTE | 2017-06-07 14:12 | Discharge Instructions ---
Discharge Instructions Date of Service Jun 07, 2017. Admission Reason for Admission: CHF Discharge Discharge Diagnosis / Problem: CHF exacerbation Discharge Goals Goal(s): Therapeutic intervention Activity Recommendations Activity Limitations: resume your previous activity . Instructions / Follow-Up Instructions / Follow-Up Please wear your BiPap every night Please see Dr. Valdivia on Sat at 10:55AM for hospital follow up Please call to schedule an appointment with Cardiology Dr. Abraham Current Hospital Diet Patient's current hospital diet: Diabetes Type 2 Diet, AHA Diet (Heart Healthy) Discharge Diet Recommended Diet: AHA Diet (Heart Healthy), Diabetes Type 2 Diet Pending Studies Studies pending at discharge: no Laboratory Results Hemoglobin A1c Test 04/29/17 07:11 Range/Units Estimated Average Glucose 180 mg/dl Hemoglobin A1c 7.9 H 4.5-5.6 % Medical Emergencies . Who to Call and When: Medical Emergencies: If at any time you feel your situation is an emergency, please call 911 immediately. . Non-Emergent Contact Non-Emergency issues call your: Primary Care Provider, Automation Clerk . . "Provider Documentation" section prepared by Naila Frances. . VTE Core Measure Inpt VTE Proph given/why not?: Enoxaparin (Lovenox)SQ
[2017-06-07 14:27] VITALS: BP 149/73; PULSE 66; TEMP 36.5; O2SAT 100
== END 2017-06-07 14:48 | disposition home or self-care (01) | DRG 291 ==
LOC: EDBD 13:48 → C.EDC 13:50 → C.2T 16:12 → ENRESERV 17:15 → CANRESERV 17:15 → ENRESERV 17:50
PROVIDERS: ADMIT Internal Medicine; ATTEND Internal Medicine
DX: I50.33 Acute on chronic diastolic (congestive) heart failure (principal); J96.01 Acute respiratory failure with hypoxia; G93.40 Encephalopathy, unspecified; E66.2 Morbid (severe) obesity with alveolar hypoventilation; Z68.41 Body mass index [BMI] 40.0-44.9, adult; E11.42 Type 2 diabetes mellitus with diabetic polyneuropathy; E78.5 Hyperlipidemia, unspecified; F32.9 Major depressive disorder, single episode, unspecified; K21.9 Gastro-esophageal reflux disease without esophagitis; D64.9 Anemia, unspecified; Z79.82 Long term (current) use of aspirin; Z79.4 Long term (current) use of insulin; Z87.891 Personal history of nicotine dependence; Z83.3 Family history of diabetes mellitus; Z82.49 Family history of ischemic heart disease and other diseases of the circulatory system

== ENCOUNTER 2017-07-08 11:25 | Emergency (ER) | payer OTHER ==
[~2017-07-08] VITALS: Ht 177.8 cm; Wt 115.0 kg
[~2017-07-08 11:25] MED LIST changes: -FURO-85 PO; -LCTX PO; +LSX40 PO
[2017-07-08 11:38] VITALS: TEMP 36.3; Ht 177.8 cm; Wt 115.0 kg
[2017-07-08] MEDS ORDERED: ACETAMINOPHEN 500 MG TAB PO STA (12:15)
--- NOTE | 2017-07-08 12:41 | EMERGENCY ROOM VISIT NOTE ---
History Report prepared by Tr: Jarrod Uriostegui Under the Supervision of: Dr. Jamie Patricia M.D. First contact with patient: 12:00 Chief Complaint: URINARY SYMPTOMS Stated Complaint: UTI- SENT FROM [facility] Nursing Triage Summary: urnary tract infection for one week painful seen by pa told to come into ed History of Present Illness The patient is a 76 year old white male with a past medical history of UTI and diabetes who presents to the ED with a cc of constant scrotal pain beginning 10 days ago. Positive burning with urination. Patient has history of UTI's and states that current symptoms feel very similar. Had Osorio catheter placed a year ago, and was removed last month. Patient has urinary incontinence at baseline. Negative fevers, chills, hematuria. No alcohol, tobacco or drug use. Source of History: patient Onset: 10 days ago Position: other (scrotum) Timing: constant Associated Symptoms: + urinary symptoms (burning with urination), No fevers , No chills Note: Negative: hematuria. Review of Systems See HPI for pertinent positives and negatives. A total of ten systems were reviewed and were otherwise negative. Past Medical & Surgical Medical Problems: (1) Anxiety (2) Asthma, cough variant (3) Benign prostatic hyperplasia (4) Depression (5) Diabetes mellitus type 2 (6) Diabetic neuropathy (7) Diastolic heart failure (8) Dyslipidemia (9) Essential hypertension (10) Gastroesophageal reflux disease (11) Legal blindness (12) Morbid obesity (13) Nocturnal hypoxemia (14) Obesity hypoventilation syndrome (15) Peripheral venous insufficiency (16) Sleep apnea (17) UTI (urinary tract infection) Surgical Problems: (1) S/P cataract surgery (2) S/p eyelid surgery (3) S/P foot surgery, left (4) S/P panniculectomy (5) S/P tonsillectomy Family History Diabetes mellitus MOTHER BROTHER GRANDMOTHER FH: CAD (coronary artery disease) FATHER (CABG) FH: CHF (congestive heart failure) MOTHER BROTHER GI disorder Hypertension MOTHER Social History Smoking Status: Unknown if Ever Smoked Alcohol Use: none Housing Status: lives with family Current/Historical Medications Scheduled Aspirin (Aspirin Ec), 81 MG PO DAILY Cephalexin (Keflex), 1 CAP PO BID Finasteride (Proscar), 5 MG PO QAM Folic Acid (Folvite), 1 MG PO DAILY Furosemide (Furosemide), 40 MG PO BID17 Gabapentin (Gabapentin), 300 MG PO BID Insulin Aspart (Novolog Flexpen), 10 UNITS SQ TIDM Insulin Glargine (Lantus Solostar), 25 UNITS SQ QPM Magnesium Oxide (Mag-Ox), 400 MG PO DAILY Metolazone (Zaroxolyn), 5 MG PO 2XWK Metoprolol Tartrate (Lopressor) (Lopressor), 12.5 MG PO BID Modafinil (Provigil), 100 MG PO QAM Multivitamin (Multivitamin), 1 TAB PO DAILY Nystatin-Triamcinolone (Nystatin/Triamcinolone), 1 APPLN TOP BID Omeprazole (Prilosec), 20 MG PO QAM Potassium Ext Rel (Klor-Con), 20 MEQ PO BID Simvastatin (Zocor), 40 MG PO QPM Tamsulosin HCl (Tamsulosin HCl), 1 CAP PO HS Venlafaxine Hcl (Effexor), 75 MG PO BID Scheduled PRN Acetaminophen (Tylenol), 1,000 MG PO Q6 PRN for Headache or Pain Loperamide Hcl (Imodium), 2 MG PO BID PRN for Diarrhea Phenazopyridine HCl (Pyridium), 200 MG PO TID PRN for Frequency/Burning w/ Urination Allergies Coded Allergies: Hydromorphone (Verified Adverse Reaction, Severe, DELIRIUM, UNRESPONSIVENESS, 07/08/17) UNRESPONSIVENESS Oxycodone (Verified Adverse Reaction, Unknown, Trouble coming off, 07/08/17 ) Repoted by , NOT ALLERGIC TO THEM Propoxyphene (Verified Adverse Reaction, Unknown, Trouble coming off of Darvocet., 07/08/17) Reported by Physical Exam Vital Signs Date Time Temp Pulse Resp B/P (MAP) Pulse Ox O2 Delivery O2 Flow Rate FiO2 07/08/17 14:06 75 20 130/53 92 Room Air 07/08/17 11:38 36.3 80 18 160/74 91 Room Air Physical Exam GENERAL: Obese. Awake, alert, well-appearing, NAD. Thinning hair. HENT: Normocephalic, atraumatic. Edentulous. EYES: Normal conjunctiva. Sclera non-icteric. NECK: Supple. No nuchal rigidity. FROM. RESPIRATORY: CTAB, no rhonchi, wheezing, crackles CARDIAC: RRR, no MRG ABDOMEN: Large, soft, NTND, BS+. Possible hernia over the suprapubic area. Trace maceration within the skin folds. No evidence of Thelma. : Uncircumcised. Bilateral testes descended. No penile or scrotal pain or swelling. MSK: No chest wall TTP, no LE edema NEURO: GCS 15, CN 2-12 intact, moves all 4s on command SKIN: No rash or jaundice noted. Medical Decision & Procedures Laboratory Results 07/08/17 12:30 Red Blood Count 4.73, Mean Corpuscular Volume 73.4, Mean Corpuscular Hemoglobin 20.9, Mean Corpuscular Hemoglobin Concent 28.5, Mean Platelet Volume 9.6, Neutrophils (%) (Auto) 63.5, Lymphocytes (%) (Auto) 22.1, Monocytes (%) (Auto) 9.0, Eosinophils (%) (Auto) 4.8, Basophils (%) (Auto) 0.3, Neutrophils # (Auto) 4.86, Lymphocytes # (Auto) 1.69, Monocytes # (Auto) 0.69, Eosinophils # (Auto) 0.37, Basophils # (Auto) 0.02 07/08/17 12:30 Test 07/08/17 12:30 07/08/17 12:52 White Blood Count 7.65 K/uL (4.8-10.8) Red Blood Count 4.73 M/uL (4.7-6.1) Hemoglobin 9.9 g/dL (14.0-18.0) Hematocrit 34.7 % (42-52) Mean Corpuscular Volume 73.4 fL (80-100) Mean Corpuscular Hemoglobin 20.9 pg (25-34) Mean Corpuscular Hemoglobin Concent 28.5 g/dl (32-36) Platelet Count 260 K/uL (130-400) Mean Platelet Volume 9.6 fL (7.4-10.4) Neutrophils (%) (Auto) 63.5 % Lymphocytes (%) (Auto) 22.1 % Monocytes (%) (Auto) 9.0 % Eosinophils (%) (Auto) 4.8 % Basophils (%) (Auto) 0.3 % Neutrophils # (Auto) 4.86 K/uL (1.4-6.5) Lymphocytes # (Auto) 1.69 K/uL (1.2-3.4) Monocytes # (Auto) 0.69 K/uL (0.11-0.59) Eosinophils # (Auto) 0.37 K/uL (0-0.5) Basophils # (Auto) 0.02 K/uL (0-0.2) RDW Standard Deviation 47.8 fL (36.4-46.3) RDW Coefficient of Variation 17.8 % (11.5-14.5) Immature Granulocyte % (Auto) 0.3 % Immature Granulocyte # (Auto) 0.02 K/uL (0.00-0.02) Hypochromasia PRESENT Microcytosis PRESENT Stomatocytes 1+ Anion Gap 4.0 mmol/L (3-11) Est Creatinine Clear Calc Drug Dose 67.6 ml/min Estimated GFR () 68.1 Estimated GFR (Non- 58.8 BUN/Creatinine Ratio 22.2 (10-20) Calcium Level 8.6 mg/dl (8.5-10.1) Total Bilirubin 0.4 mg/dl (0.2-1) Direct Bilirubin 0.2 mg/dl (0-0.2) Aspartate Amino Transf (AST/SGOT) 11 U/L (15-37) Alanine Aminotransferase (ALT/SGPT) 14 U/L (12-78) Alkaline Phosphatase 85 U/L (45-117) Total Protein 7.0 gm/dl (6.4-8.2) Albumin 3.0 gm/dl (3.4-5.0) Lipase 80 U/L (73-393) Urine Color RED Urine Appearance CLOUDY (CLEAR) Urine pH 7.5 (4.5-7.5) Urine Specific [place] 1.011 (1.000-1.030) Urine Protein NEG (NEG) Urine Glucose (UA) NEG (NEG) Urine Ketones NEG (NEG) Urine Occult Blood 3+ (NEG) Urine Nitrite NEG (NEG) Urine Bilirubin NEG (NEG) Urine Urobilinogen NEG (NEG) Urine Leukocyte Esterase LARGE (NEG) Urine WBC (Auto) >30 /hpf (0-5) Urine RBC (Auto) >30 /hpf (0-4) Urine Hyaline Casts (Auto) 1-5 /lpf (0-5) Urine Epithelial Cells (Auto) 10-20 /lpf (0-5) Urine Bacteria (Auto) NEG (NEG) Urine Pathogenic Casts /lpf (0) Laboratory results reviewed by me Medications Administered Medications (Trade) Dose Ordered Sig/Bj Route Start Time Stop Time Status Last Admin Dose Admin Acetaminophen (Tylenol Tab) 1,000 mg NOW STAT PO 07/08/17 12:15 07/08/17 12:17 DC 07/08/17 12:45 1,000 MG ED Course 1204: The patient was evaluated in room C2B. A complete history and physical exam was performed. 1425: I reevaluated the patient. Discussed results and discharge instructions: he verbalized understanding and agreement. The patient is ready for discharge. Medical Decision The patient is a 76 year old white male with a past medical history of UTI, IDDM , CHF, BPH, asthma, GERD, HTN, OHS who presents to the ED with a cc of constant scrotal pain beginning 10 days ago. Differential diagnosis: Etiologies such as renal colic, appendicitis, diverticulitis, mesenteric ischemia, aortic pathology, infections, inflammatory bowel disease, PUD, biliary pathology, UTI, as well as others were entertained. Patient was seen and evaluated at the bedside. Patient does have prior history of UTIs. Patient states he did have a Osorio catheter for approximately 1 year time. Patient states this is removed in May. Patient has complained of some suprapubic fullness as well as some dysuria. Patient denies any hematuria. He also denies any fevers or chills. She has no CVA TTP. Patient did have blood work completed along with urinalysis. Patient's blood work fairly unremarkable. Patient does have some baseline chronic anemia which is stable. Patient's urinalysis does not look acutely infected but does have some hematuria. Given that the patient is fairly convinced that he is symptomatic the patient was given first dose of Keflex as well as a per scription as an outpatient. Patient was deemed suitable for outpatient follow-up and treatment at this time. Patient was given strict follow-up, discharge, and return precautions. All questions were answered. Patient was deemed suitable for outpatient follow-up at this time. Patient agreed with the plan of care and was safely discharged home. Medication Reconcilliation Current Medication List: was personally reviewed by me Blood Pressure Screening Patient's blood pressure: Elevated blood pressure Blood pressure disposition: Elevated BP felt to be situational Impression Primary Impression: Symptoms involving urinary system Additional Impressions: Urinary tract infection Anemia Scribe Attestation The scribe's documentation has been prepared under my direction and personally reviewed by me in its entirety. I confirm that the note above accurately reflects all work, treatment, procedures, and medical decision making performed by me. Departure Information Dispostion Home / Self-Care Prescriptions Phenazopyridine HCl (Pyridium) 200 Mg Tab 200 MG PO TID Y for Frequency/Burning w/Urination, #6 TAB Prov: Jamie Patricia M.D. 07/08/17 Cephalexin (KEFLEX) 500 Mg Cap 1 CAP PO BID for 7 Days, #14 CAP Prov: Jamie Patricia M.D. 07/08/17 Referrals Syed Valdivia, D.O. (PCP) Patient Instructions ED UTI Cystitis Male, My [facility] Additional Instructions Please return to the emergency department if you have worsening or recurrent symptoms not amenable to at-home treatment. Please call for a follow-up appointment with her primary care physician. Please take your medications as prescribed. If you have other concerns and/or complaints please feel free to also call your primary care physician's office or return the ED for further evaluation, management, and treatment. You were found to have an elevated blood pressure today (>120 sytolic or >90 diastolic). Per medicare guidelines, you need to follow up with this blood pressure screening with your Primary Care Physician (PCP). For a new PCP call [phone]. You received narcotic or benzodiazepene medication while in the emergency room today. This is an addictive medication that may cause drowziness as well as constipation. Do not drive, operate heavy machinery, or drink alcohol under the influence of this medication. Take your medications as prescribed. If taking an antibiotic consider taking a probiotic and/or eating yogurt, but at the least, please take with food as it can cause upset stomach. You have been examined and treated today on an emergency basis only. This is not a substitute for, or an effort to provide, complete comprehensive medical care. It is impossible to recognize and treat all injuries or illnesses in a single emergency department visit. It is therefore important that you follow up closely with [facility], your PCP, and/or your specialist(s). Call as soon as possible for an appointment. Thank you for your time and consideration. I look forward to speaking with you again soon. Please don't hesitate to call us if you have any questions. Problem Qualifiers Additional Impressions: Urinary tract infection Urinary tract infection type: acute cystitis Hematuria presence: with hematuria Qualified Codes: N30.01 - Acute cystitis with hematuria Anemia Anemia type: unspecified type Qualified Codes: D64.9 - Anemia, unspecified
[2017-07-08 12:44] LABS: HEMATOCRIT 34.7 % (42-52); HEMOGLOBIN 9.9 g/dL (14.0-18.0); MEAN CELL VOLUME 73.4 fL (80-100); MEAN CORPUSCULAR HEMOGLOBIN 20.9 pg (25-34); MEAN CORPUSCULAR HGB CONC 28.5 g/dl (32-36); MEAN PLATELET VOLUME 9.6 fL (7.4-10.4); PLATELET COUNT 260 K/uL (130-400); RED CELL DISTRIBUTION WIDTH CV 17.8 % (11.5-14.5); RED CELL DISTRIBUTION WIDTH SD 47.8 fL (36.4-46.3); WHITE BLOOD COUNT 7.65 K/uL (4.8-10.8)
[2017-07-08 13:02] LABS: CALCIUM 8.6 mg/dl (8.5-10.1); CREATININE 1.2 mg/dl (0.60-1.40)
[2017-07-08 13:11] LABS: BASO % 0.3 %; BASO ABS # 0.02 K/uL (0-0.2); EOS % 4.8 %; EOS ABS # 0.37 K/uL (0-0.5); IG# 0.02 K/uL (0.00-0.02); LYMPH % 22.1 %; LYMPH ABS # 1.69 K/uL (1.2-3.4); MONO ABS # 0.69 K/uL (0.11-0.59); NEUT % 63.5 %; NEUT ABS # 4.86 K/uL (1.4-6.5)
[2017-07-08 14:06] VITALS: BP 130/53; PULSE 75; O2SAT 92
[2017-07-08] MEDS ORDERED: PHEN-876 PO (14:18)
[2017-07-08] MEDS ORDERED: CEPH-571 PO (14:18)
[2017-07-08] MEDS ORDERED: CEPHALEXIN MONOHYDRATE 250 MG CAP PO ONE (14:30)
--- NOTE | 2017-07-10 15:05 | Pharmacy Progress Note ---
ED Pharmacist Culture FollowUp Date of Service: Jul 10, 2017. Called patient regarding URINE culture from 07/08/17. Cx is growing pseudomonas aeruginosa (> 100,000 CFU/mL). Pt was discharged with Rx for Keflex which will not cover this organism. Unfortunately, the organism is intermediate sensitivity to fluoroquinolones thus no PO options are available. I reviewed the results w/ Dr Mendieta. Pt is to return to the ER for eval and initiation of IV antibiotics. D/C Keflex. I contacted the patient via phone ([phone]). He states he still has dysuria, however the Phenazopyridine helps. He denies fever, chills, NV, abd pain or back pain. He stated he would arrange to have a ride bring him back to the ER.
[2017-07-16] MEDS ORDERED: PRED10TA PO (09:56)
[2017-07-16] MEDS ORDERED: CFP2IV IV (09:56)
[2017-07-16] MEDS ORDERED: LCTX PO (09:57)
== END 2017-07-08 14:32 | disposition home or self-care (01) ==
LOC: C.EDB 11:26 → C.EDC 14:32
DX: N30.01 Acute cystitis with hematuria (principal); D64.9 Anemia, unspecified; Z79.82 Long term (current) use of aspirin; N40.0 Benign prostatic hyperplasia without lower urinary tract symptoms; I11.0 Hypertensive heart disease with heart failure; I50.30 Unspecified diastolic (congestive) heart failure; Z79.4 Long term (current) use of insulin; F32.9 Major depressive disorder, single episode, unspecified; E78.5 Hyperlipidemia, unspecified; J45.909 Unspecified asthma, uncomplicated; E11.40 Type 2 diabetes mellitus with diabetic neuropathy, unspecified; K21.9 Gastro-esophageal reflux disease without esophagitis; H54.8 Legal blindness, as defined in USA; E66.2 Morbid (severe) obesity with alveolar hypoventilation; Z88.6 Allergy status to analgesic agent; Z83.3 Family history of diabetes mellitus; Z82.49 Family history of ischemic heart disease and other diseases of the circulatory system; Z83.79 Family history of other diseases of the digestive system

== ENCOUNTER 2017-07-12 09:48 | Inpatient (IN) | payer OTHER ==
[~2017-07-12] VITALS: Ht 177.8 cm; Wt 118.4 kg
[~2017-07-12 09:48] MED LIST changes: +CEPH-571 PO; +PHEN-876 PO
[2017-07-12] MEDS ORDERED: CEFEPIME IV 1,000 MG in DEXTROSE 5% 100ML 100 ML IV STA (10:12)
[2017-07-12 11:03] LABS: HEMOGLOBIN 9.6 g/dL (14.0-18.0); MEAN CELL VOLUME 73.2 fL (80-100); MEAN CORPUSCULAR HEMOGLOBIN 21.3 pg (25-34); MEAN CORPUSCULAR HGB CONC 29.1 g/dl (32-36); MEAN PLATELET VOLUME 9.9 fL (7.4-10.4); PLATELET COUNT 264 K/uL (130-400); RED CELL DISTRIBUTION WIDTH CV 17.7 % (11.5-14.5); RED CELL DISTRIBUTION WIDTH SD 47.8 fL (36.4-46.3); WHITE BLOOD COUNT 8.36 K/uL (4.8-10.8)
[2017-07-12 11:16] LABS: BASO % 0.2 %; BASO ABS # 0.02 K/uL (0-0.2); EOS % 4.7 %; EOS ABS # 0.39 K/uL (0-0.5); IG# 0.02 K/uL (0.00-0.02); LYMPH % 24.4 %; LYMPH ABS # 2.04 K/uL (1.2-3.4); MONO % 7.4 %; MONO ABS # 0.62 K/uL (0.11-0.59); NEUT % 63.1 %; NEUT ABS # 5.27 K/uL (1.4-6.5)
[2017-07-12 11:19] LABS: ALT/SGPT 15 U/L (12-78); AST/SGOT 12 U/L (15-37); BLOOD UREA NITROGEN 29 mg/dl (7-18); CALCIUM 8.3 mg/dl (8.5-10.1); CARBON DIOXIDE 34 mmol/L (21-32); CREATININE 1.29 mg/dl (0.60-1.40); GLUCOSE 124 mg/dl (70-99); LIPASE 68 U/L (73-393); POTASSIUM 3.8 mmol/L (3.5-5.1); SODIUM 139 mmol/L (136-145)
[2017-07-12 11:21] LABS: ALKALINE PHOSPHATASE 96 U/L (45-117); TOTAL PROTEIN 7.4 gm/dl (6.4-8.2)
[2017-07-12] MEDS ORDERED: ALUMINUM/MAGNESIUM/SIMETH (MAALOX MAX) 30 ML UDC PO PRN (12:30)
[2017-07-12] MEDS ORDERED: POLYETHYLENE (MIRALAX) 17 GM PACK PO PRN (12:30)
[2017-07-12] MEDS ORDERED: ONDANSETRON INJ 2 MG/ML 2 ML VIAL IV PRN (12:30)
[2017-07-12 12:47] LABS: INR 0.9 (0.9-1.1); PTT PATIENT 26.6 SECONDS (21.0-31.0)
--- NOTE | 2017-07-12 12:56 | DIAGNOSTIC IMAGING REPORT ---
CHEST ONE VIEW PORTABLE CLINICAL HISTORY: Shortness of breath. COMPARISON STUDY: Chest radiograph June 03, 2017. FINDINGS: Lung volumes are diminished. This is unchanged. There is no pneumothorax. No pleural effusion is visualized. A suspected anterior right shoulder dislocation is again noted. Moderate cardiomegaly is unchanged. Mediastinal widening is unchanged. There is no evidence for pulmonary edema. IMPRESSION: No change in appearance of the chest. Moderate cardiomegaly without radiographic evidence of pulmonary edema. Electronically signed by: Vlad Everett M.D. 07/12/2017 12:54 PM Dictated Date/Time: 07/12/2017 12:53 PM
[2017-07-12] MEDS ORDERED: METHYLPREDNISOLONE IV 125 MG in SYRINGE 0 ML IV ONE (13:00)
--- NOTE | 2017-07-12 13:01 | EMERGENCY ROOM VISIT NOTE ---
History Report prepared by Tr: Miriam Waters Under the Supervision of: Dr. Sixto Ames M.D. First contact with patient: 10:05 Chief Complaint: URINARY SYMPTOMS Stated Complaint: BACTERIAL INFECTION, NEEDS IV MEDS Nursing Triage Summary: Pt seen here last week for UTI, given Cipro. Pt states called and told to return for IV abx. Pt states still having urinary urgency and freq. Denies abd or back pain or n/v. History of Present Illness The patient is a 76 year old male who presents to the Emergency Room with complaints of persistent urinary symptoms starting 1 week ago. The patient was here on the and started on Keflex for UTI. His urine cultures are now showing pseudomonas which is sensitive to cefepime, intermediate to Cipro, and resistant to imipenem. He was told to return to the ED for IV antibiotics. He is still having burning with urination. He has some chills in the evening. He reports some leg swelling. He has been getting fatigued recently, but is unable to sleep. He feels weaker and confused at times. Pt denies LOC, headache, fevers , diaphoresis, visual changes, neck pain, chest pain, breathing difficulties, nausea, vomiting, abdominal pain, back pain, melena, hematochezia, numbness, lymphadenopathy, rash, or other complaints. Source of History: patient Onset: 1 week ago Position: other (urinary) Quality: burning Timing: other (persistent) Associated Symptoms: + chills, + fatigue, + weakness Review of Systems See HPI for pertinent positives and negatives. A total of ten systems were reviewed and were otherwise negative. Past Medical & Surgical Medical Problems: (1) Anxiety (2) Asthma exacerbation (3) Asthma, cough variant (4) Benign prostatic hyperplasia (5) Depression (6) Diabetes mellitus type 2 (7) Diabetic neuropathy (8) Diastolic heart failure (9) Dyslipidemia (10) Essential hypertension (11) Gastroesophageal reflux disease (12) Legal blindness (13) Morbid obesity (14) Nocturnal hypoxemia (15) Obesity hypoventilation syndrome (16) Peripheral venous insufficiency (17) Pseudomonas urinary tract infection (18) Sleep apnea (19) UTI (urinary tract infection) Surgical Problems: (1) S/P cataract surgery (2) S/p eyelid surgery (3) S/P foot surgery, left (4) S/P panniculectomy (5) S/P tonsillectomy Family History Diabetes mellitus MOTHER BROTHER GRANDMOTHER FH: CAD (coronary artery disease) FATHER (CABG) FH: CHF (congestive heart failure) MOTHER BROTHER GI disorder Hypertension MOTHER Social History Smoking Status: Former Smoker Marital Status: Occupation Status: retired Current/Historical Medications Scheduled Aspirin (Aspirin Ec), 81 MG PO DAILY Cephalexin (Keflex), 1 CAP PO BID Finasteride (Proscar), 5 MG PO QAM Folic Acid (Folvite), 1 MG PO DAILY Furosemide (Furosemide), 40 MG PO BID17 Gabapentin (Gabapentin), 300 MG PO BID Insulin Aspart (Novolog Flexpen), 10 UNITS SQ TIDM Insulin Glargine (Lantus Solostar), 25 UNITS SQ QPM Magnesium Oxide (Mag-Ox), 400 MG PO DAILY Metolazone (Zaroxolyn), 5 MG PO 2XWK Metoprolol Tartrate (Lopressor) (Lopressor), 12.5 MG PO BID Modafinil (Provigil), 100 MG PO QAM Multivitamin (Multivitamin), 1 TAB PO DAILY Nystatin-Triamcinolone (Nystatin/Triamcinolone), 1 APPLN TOP BID Omeprazole (Prilosec), 20 MG PO QAM Potassium Ext Rel (Klor-Con), 20 MEQ PO BID Simvastatin (Zocor), 40 MG PO QPM Tamsulosin HCl (Tamsulosin HCl), 1 CAP PO HS Venlafaxine Hcl (Effexor), 75 MG PO BID Scheduled PRN Acetaminophen (Tylenol), 1,000 MG PO Q6 PRN for Headache or Pain Loperamide Hcl (Imodium), 2 MG PO BID PRN for Diarrhea Phenazopyridine HCl (Pyridium), 200 MG PO TID PRN for Frequency/Burning w/ Urination Allergies Coded Allergies: Hydromorphone (Verified Adverse Reaction, Severe, DELIRIUM, UNRESPONSIVENESS, 07/12/17) UNRESPONSIVENESS Oxycodone (Verified Adverse Reaction, Unknown, Trouble coming off, 07/12/17) Repoted by , NOT ALLERGIC TO THEM Propoxyphene (Verified Adverse Reaction, Unknown, Trouble coming off of Darvocet., 07/12/17) Reported by Physical Exam Vital Signs Date Time Temp Pulse Resp B/P (MAP) Pulse Ox O2 Delivery O2 Flow Rate FiO2 07/12/17 12:38 36.8 62 22 159/66 98 Room Air 07/12/17 12:37 98 Nasal Cannula 2.0 07/12/17 12:36 88 Room Air 07/12/17 11:00 36.5 68 18 135/75 91 Room Air 07/12/17 10:19 64 07/12/17 09:52 36.6 81 20 129/57 96 Room Air Physical Exam GENERAL: Awake, alert, tired-appearing, in no distress HENT: Normocephalic, atraumatic. Oropharynx unremarkable. EYES: Normal conjunctiva. Sclera non-icteric. NECK: Supple. No nuchal rigidity. FROM. No masses. RESPIRATORY: Clear to auscultation. No wheezes. CARDIAC: Normal rate. Normal rhythm. No murmurs. No rubs. Extremities warm and well perfused. Pulses equal. No JVD. GI: Soft, non-distended. No tenderness to palpation. No rebound or guarding. No masses. RECTAL: Deferred. MUSCULOSKELETAL: Atraumatic. Chest examination reveals no tenderness. The back is symmetrical on inspection without obvious abnormality. There is no CVA tenderness to palpation. No joint edema. LOWER EXTREMITIES: Calves are equal size bilaterally and non-tender. 2+ edema. Chronic venous discoloration. NEURO: Normal sensorium. No sensory or motor deficits noted. SKIN: No rash or jaundice noted. Medical Decision & Procedures Laboratory Results 07/12/17 10:20 Red Blood Count 4.51, Mean Corpuscular Volume 73.2, Mean Corpuscular Hemoglobin 21.3, Mean Corpuscular Hemoglobin Concent 29.1, Mean Platelet Volume 9.9, Neutrophils (%) (Auto) 63.1, Lymphocytes (%) (Auto) 24.4, Monocytes (%) (Auto) 7.4, Eosinophils (%) (Auto) 4.7, Basophils (%) (Auto) 0.2, Neutrophils # (Auto) 5.27, Lymphocytes # (Auto) 2.04, Monocytes # (Auto) 0.62, Eosinophils # (Auto) 0.39, Basophils # (Auto) 0.02 07/12/17 10:20 Test 07/12/17 10:20 07/12/17 10:40 White Blood Count 8.36 K/uL (4.8-10.8) Red Blood Count 4.51 M/uL (4.7-6.1) Hemoglobin 9.6 g/dL (14.0-18.0) Hematocrit 33.0 % (42-52) Mean Corpuscular Volume 73.2 fL (80-100) Mean Corpuscular Hemoglobin 21.3 pg (25-34) Mean Corpuscular Hemoglobin Concent 29.1 g/dl (32-36) Platelet Count 264 K/uL (130-400) Mean Platelet Volume 9.9 fL (7.4-10.4) Neutrophils (%) (Auto) 63.1 % Lymphocytes (%) (Auto) 24.4 % Monocytes (%) (Auto) 7.4 % Eosinophils (%) (Auto) 4.7 % Basophils (%) (Auto) 0.2 % Neutrophils # (Auto) 5.27 K/uL (1.4-6.5) Lymphocytes # (Auto) 2.04 K/uL (1.2-3.4) Monocytes # (Auto) 0.62 K/uL (0.11-0.59) Eosinophils # (Auto) 0.39 K/uL (0-0.5) Basophils # (Auto) 0.02 K/uL (0-0.2) RDW Standard Deviation 47.8 fL (36.4-46.3) RDW Coefficient of Variation 17.7 % (11.5-14.5) Immature Granulocyte % (Auto) 0.2 % Immature Granulocyte # (Auto) 0.02 K/uL (0.00-0.02) Red Blood Cell Morphology Unremarkable Prothrombin Time 9.9 SECONDS (9.0-12.0) Prothromb Time International Ratio 0.9 (0.9-1.1) Activated Partial Thromboplast Time 26.6 SECONDS (21.0-31.0) Partial Thromboplastin Ratio 1.0 Anion Gap 5.0 mmol/L (3-11) Estimated GFR () 62.4 Estimated GFR (Non- 53.9 BUN/Creatinine Ratio 22.6 (10-20) Calcium Level 8.3 mg/dl (8.5-10.1) Total Bilirubin 0.4 mg/dl (0.2-1) Direct Bilirubin 0.1 mg/dl (0-0.2) Aspartate Amino Transf (AST/SGOT) 12 U/L (15-37) Alanine Aminotransferase (ALT/SGPT) 15 U/L (12-78) Alkaline Phosphatase 96 U/L (45-117) Pro-B-Type Natriuretic Peptide 799 pg/ml (0-900) Total Protein 7.4 gm/dl (6.4-8.2) Albumin 3.0 gm/dl (3.4-5.0) Lipase 68 U/L (73-393) Urine Color DK YELLOW Urine Appearance TURBID (CLEAR) Urine pH 5.5 (4.5-7.5) Urine Specific [place] 1.014 (1.000-1.030) Urine Protein NEG (NEG) Urine Glucose (UA) NEG (NEG) Urine Ketones NEG (NEG) Urine Occult Blood 2+ (NEG) Urine Nitrite POS (NEG) Urine Bilirubin NEG (NEG) Urine Urobilinogen NEG (NEG) Urine Leukocyte Esterase LARGE (NEG) Urine WBC (Auto) >30 /hpf (0-5) Urine RBC (Auto) >30 /hpf (0-4) Urine Hyaline Casts (Auto) 1-5 /lpf (0-5) Urine Epithelial Cells (Auto) 20-30 /lpf (0-5) Urine Bacteria (Auto) NEG (NEG) Laboratory results reviewed by me Medications Administered Medications (Trade) Dose Ordered Sig/Bj Route Start Time Stop Time Status Last Admin Dose Admin Cefepime HCl 1000 mg/Dextrose 111 ml @ 200 mls/hr NOW STAT IV 07/12/17 10:12 07/12/17 10:45 DC 07/12/17 10:52 200 MLS/HR ED Course 1012: Cefepime HCl 1000 mg/Dextrose 111 ml @ 200 mls/hr IV. 1042: The patient was evaluated in room B2. A complete history and physical exam was performed. 1138: Upon reexamination, the patient was resting comfortably. I discussed the test results and treatment plan with him. The patient will be evaluated for further management. 1143: I discussed the patient's case with Christ[facility] Robles [facility] The patient will be evaluated for further treatment and disposition. Medical Decision Triage Nursing notes reviewed. The patient's presentation and history were concerning for urinary symptoms and a resistant culture. Etiologies such as urinary tract infection, sepsis, bacteremia, as well as others were entertained. The patient was evaluated. He was nontoxic. He was generally weak. He was afebrile. Urine culture revealed a pseudomonas that was resistant to imipenem and intermediate to quinolones. Cefepime was sensitive. The patient was given a dose of IV cefepime. CBC didn't show any acute findings. Chemistry panel was unremarkable. Urinalysis from today is concerning for infection. I discussed the case with the ED pharmacist. Cefepime every 12 hours was recommended. The patient had a consultation placed with internal medicine. The patient was evaluated in the Emergency Room for further management. Medication Reconcilliation Current Medication List: was personally reviewed by me Blood Pressure Screening Patient's blood pressure: Elevated blood pressure Referred to hospitalist. Consults Time Called: 1137 Consulting Physician: CHOLO Dasilva hospitalist Returned Call: 1143 Discussed the patient's case. The patient will be evaluated for further treatment and disposition. Impression Primary Impression: Complicated UTI (urinary tract infection) Scribe Attestation The scribe's documentation has been prepared under my direction and personally reviewed by me in its entirety. I confirm that the note above accurately reflects all work, treatment, procedures, and medical decision making performed by me. Departure Information Dispostion Being Evaluated By Hospitalist Referrals Syed Valdivia D.O. (PCP) Patient Instructions My [facility]
--- NOTE | 2017-07-12 13:13 | History and Physical ---
History & Physical Date & Time of Service: Jul 12, 2017 at 13:04 Chief Complaint: Bacterial Infection, Needs Iv Meds Primary Care Physician: Syed Valdivia D.OMalcolm History of Present Illness Source: patient, clinic records, hospital records this is a 76yo M with a PMH of DM II, diastolic HF, asthma, GILLES, obesity hypoventilation syndrome and other medical problems listed below who presents with continued urinary symptoms that began a week ago. Patient was seen in the ED on 07/08 and was found to have a UTI. Was discharged home on Keflex. Urine cultures have since grown pseudomonas which is sensitive to cefepime, intermediate to Cipro and resistant to imipenem. Patient was instructed to come back to ED for IV antibiotic treatment. Still experiencing dysuria, burning and intermittent chills. No fever, suprapubic pain or flank pain. Is incontinent and wears briefs at home. Is wheelchair bound and manages medications. Patient also complaining of SOB, which has worsened since arrival. Endorses wheezing and SOB at rest. Denies any recent URI symptoms. Does not smoke. Sees Dr. Abraham for CHF management and had lasix dose increased to 80mg BID at last week's clinic appointment. Denies any recent weight gain, dietary changes or increased LE swelling. Denies headache, confusion, chest pain, palpitations, nausea, vomiting, abdominal pain, diarrhea, constipation or weakness of extremities. Has a pressure ulcer on the back of his L thigh for which he used to see wound care. Past Medical/Surgical History Medical Problems: (1) Anxiety Status: Chronic (2) Asthma, cough variant Status: Chronic (3) Benign prostatic hyperplasia Status: Chronic (4) Depression Status: Chronic (5) Diabetes mellitus type 2 Status: Chronic (6) Diabetic neuropathy Status: Chronic (7) Diastolic heart failure Status: Chronic (8) Dyslipidemia Status: Chronic (9) Essential hypertension Status: Chronic (10) Gastroesophageal reflux disease Status: Chronic (11) Legal blindness Status: Chronic (12) Morbid obesity Permanent Comment: BMI > 40 Status: Chronic (13) Nocturnal hypoxemia Status: Chronic (14) Obesity hypoventilation syndrome Status: Chronic (15) Peripheral venous insufficiency Status: Chronic (16) Sleep apnea Permanent Comment: noncompliant with CPAP Status: Chronic Surgical Problems: (1) S/P cataract surgery Status: Chronic (2) S/p eyelid surgery Status: Chronic (3) S/P foot surgery, left Status: Chronic (4) S/P panniculectomy Status: Chronic (5) S/P tonsillectomy Status: Chronic Family History Diabetes mellitus MOTHER BROTHER GRANDMOTHER FH: CAD (coronary artery disease) FATHER (CABG) FH: CHF (congestive heart failure) MOTHER BROTHER GI disorder Hypertension MOTHER Social History Smoking Status: Former Smoker Alcohol Use: none Marital Status: Housing status: lives with significant other Occupational Status: retired Immunizations History of Influenza Vaccine: Yes Influenza Vaccine Date: Jan 23, 2017 History of Tetanus Vaccine?: Yes Tetanus Immunization Date: Jun 02, 2013 History of Pneumococcal: Yes Pneumococcal Date: Aug 31, 2015 History of Hepatitis B Vaccine: Unknown Allergies Coded Allergies: Hydromorphone (Verified Adverse Reaction, Severe, DELIRIUM, UNRESPONSIVENESS, 07/12/17) UNRESPONSIVENESS Oxycodone (Verified Adverse Reaction, Unknown, Trouble coming off, 07/12/17) Repoted by , NOT ALLERGIC TO THEM Propoxyphene (Verified Adverse Reaction, Unknown, Trouble coming off of Darvocet., 07/12/17) Reported by Home Medications Scheduled Ascorbic Acid (Vitamin C), 1 TAB PO DAILY Aspirin (Aspirin Ec), 81 MG PO DAILY Calcium Citrate-Vitamin D (Calcium Citrate + D3 Max 315-250 mg-Unit), 1 TAB PO DAILY Cephalexin (Keflex), 1 CAP PO BID Finasteride (Proscar), 5 MG PO QAM Folic Acid (Folvite), 1 MG PO DAILY Furosemide (Lasix), 80 MG PO BID Gabapentin (Gabapentin), 300 MG PO BID Insulin Aspart (Novolog Flexpen), 10 UNITS SQ TIDM Insulin Glargine (Lantus Solostar), 25 UNITS SQ QPM Magnesium Oxide (Mag-Ox), 400 MG PO DAILY Metolazone (Zaroxolyn), 5 MG PO 2XWK Metoprolol Tartrate (Lopressor) (Lopressor), 12.5 MG PO BID Multivitamin (Multivitamin), 1 TAB PO DAILY Nystatin-Triamcinolone (Nystatin/Triamcinolone), 1 APPLN TOP BID Omeprazole (Prilosec), 20 MG PO QAM Potassium Ext Rel (Klor-Con), 20 MEQ PO BID Simvastatin (Zocor), 40 MG PO QPM Tamsulosin HCl (Tamsulosin HCl), 1 CAP PO HS Venlafaxine Hcl (Effexor), 75 MG PO BID Scheduled PRN Acetaminophen (Tylenol), 325 MG PO Q6 PRN for Pain Loperamide Hcl (Imodium), 2 MG PO BID PRN for Diarrhea Phenazopyridine HCl (Pyridium), 200 MG PO TID PRN for Frequency/Burning w/ Urination Review of Systems Ten systems reviewed and negative except as noted in the HPI. Physical Exam Vital Signs Date Time Temp Pulse Resp B/P (MAP) Pulse Ox O2 Delivery O2 Flow Rate FiO2 07/12/17 12:38 36.8 62 22 159/66 98 Room Air 07/12/17 12:37 98 Nasal Cannula 2.0 07/12/17 12:36 88 Room Air 07/12/17 11:00 36.5 68 18 135/75 91 Room Air 07/12/17 10:19 64 07/12/17 09:52 36.6 81 20 129/57 96 Room Air General Appearance: + mild distress, + pertinent finding (Morbidly obese, tachypneic ) Head: normocephalic, atraumatic Eyes: normal inspection (legally blind ), PERRL, sclerae normal ENT: normal ENT inspection, hearing grossly normal, pharynx normal Neck: supple, thyroid normal, no JVD, trachea midline Respiratory/Chest: chest non-tender, + respiratory distress, + wheezing ( inspiratory and expiratory wheezes ) Cardiovascular: regular rate, rhythm, no murmur, normal peripheral pulses, + pertinent finding (2+ bilateral pitting edema to knees. Chronic erythema 2/2 venous stasis ) Abdomen/GI: non tender, soft, no organomegaly Back: normal inspection Extremities/Musculoskelatal: normal inspection, no calf tenderness Neurologic/Psych: no motor/sensory deficits, alert, normal mood/affect, oriented x 3 Skin: warm/dry, + pertinent finding (Pressure ulcer on L posterior thigh ) Diagnostics Laboratory Results Results Past 24 Hours Test 07/12/17 10:20 07/12/17 10:40 Range/Units White Blood Count 8.36 4.8-10.8 K/uL Red Blood Count 4.51 4.7-6.1 M/uL Hemoglobin 9.6 14.0-18.0 g/dL Hematocrit 33.0 42-52 % Mean Corpuscular Volume 73.2 80-100 fL Mean Corpuscular Hemoglobin 21.3 25-34 pg Mean Corpuscular Hemoglobin Concent 29.1 32-36 g/dl Platelet Count 264 130-400 K/uL Mean Platelet Volume 9.9 7.4-10.4 fL Neutrophils (%) (Auto) 63.1 % Lymphocytes (%) (Auto) 24.4 % Monocytes (%) (Auto) 7.4 % Eosinophils (%) (Auto) 4.7 % Basophils (%) (Auto) 0.2 % Neutrophils # (Auto) 5.27 1.4-6.5 K/uL Lymphocytes # (Auto) 2.04 1.2-3.4 K/uL Monocytes # (Auto) 0.62 0.11-0.59 K/uL Eosinophils # (Auto) 0.39 0-0.5 K/uL Basophils # (Auto) 0.02 0-0.2 K/uL RDW Standard Deviation 47.8 36.4-46.3 fL RDW Coefficient of Variation 17.7 11.5-14.5 % Immature Granulocyte % (Auto) 0.2 % Immature Granulocyte # (Auto) 0.02 0.00-0.02 K/uL Red Blood Cell Morphology Unremarkable Prothrombin Time 9.9 9.0-12.0 SECONDS Prothromb Time International Ratio 0.9 0.9-1.1 Activated Partial Thromboplast Time 26.6 21.0-31.0 SECONDS Partial Thromboplastin Ratio 1.0 Sodium Level 139 136-145 mmol/L Potassium Level 3.8 3.5-5.1 mmol/L Chloride Level 100 98-107 mmol/L Carbon Dioxide Level 34 21-32 mmol/L Anion Gap 5.0 3-11 mmol/L Blood Urea Nitrogen 29 7-18 mg/dl Creatinine 1.29 0.60-1.40 mg/dl Estimated GFR () 62.4 Estimated GFR (Non- 53.9 BUN/Creatinine Ratio 22.6 10-20 Random Glucose 124 70-99 mg/dl Calcium Level 8.3 8.5-10.1 mg/dl Total Bilirubin 0.4 0.2-1 mg/dl Direct Bilirubin 0.1 0-0.2 mg/dl Aspartate Amino Transf (AST/SGOT) 12 15-37 U/L Alanine Aminotransferase (ALT/SGPT) 15 12-78 U/L Alkaline Phosphatase 96 45-117 U/L Pro-B-Type Natriuretic Peptide 799 0-900 pg/ml Total Protein 7.4 6.4-8.2 gm/dl Albumin 3.0 3.4-5.0 gm/dl Lipase 68 73-393 U/L Urine Color DK YELLOW Urine Appearance TURBID CLEAR Urine pH 5.5 4.5-7.5 Urine Specific [place] 1.014 1.000-1.030 Urine Protein NEG NEG Urine Glucose (UA) NEG NEG Urine Ketones NEG NEG Urine Occult Blood 2+ NEG Urine Nitrite POS NEG Urine Bilirubin NEG NEG Urine Urobilinogen NEG NEG Urine Leukocyte Esterase LARGE NEG Urine WBC (Auto) >30 0-5 /hpf Urine RBC (Auto) >30 0-4 /hpf Urine Hyaline Casts (Auto) 1-5 0-5 /lpf Urine Epithelial Cells (Auto) 20-30 0-5 /lpf Urine Bacteria (Auto) NEG NEG Microbiology Results 07/12/17 Urine Culture, Received Pending Diagnostic Radiology CXR: IMPRESSION: No change in appearance of the chest. Moderate cardiomegaly without radiographic evidence of pulmonary edema. EKG Sinus rhythm with sinus arrhythmia with 1st degree A-V block Otherwise normal ECG When compared with ECG of 05-JUN-2017 06:24, No significant change was found Impression Assessment and Plan This is a 76yo M with a PMH of DM II, diastolic HF, asthma, GILLES, obesity hypoventilation syndrome and other medical problems listed below who presents with continued urinary symptoms that began a week ago and was found to have a pseudomonas UTI. Complicated UTI: -Started on keflex in ED 07/08 -Urine culture grew pseudomonas -Sensitive to cefepime, intermediate to cipro, levaquin -Continue IV cefepime for treatment -Osorio 2/2 incontinence Acute respiratory failure 2/2 asthma exacerbation: -Became hypoxic in ED to 88% on room air -Diffuse wheezing on exam, tachypneic -Does not require O2 at home -O2 saturation improved on 2L NC -Underlying asthma, obesity hypoventilation -CXR without evidence of opacities, volume overload -IV steroids, nebs, supplemental O2 -D dimer elevated to 2100 -multifactorial -has UTI /need to rule out PE/DVT -high risk for poor mobility -Stat bilateral LE dopplers -negative for PE -Chest/thorax CTA-not ordered as pt has CKD stage 3 Cr at approx baseline -ordered for ECHO ,with evidence of Rt heart strain ,will need CTA of chest for PE work up Chronic diastolic CHF: -Recently seen by Dr. Abraham in clinic -Home dose lasix increased to 80mg BID 2/2 hypervolemic state -CXR without evidence of vascular congestion, BNP wnl -Continue home dose lasix, metolazone, beta boyd -Low Na diet DM II: -Recent a1c of 7.0 in May 2017 -Hold home dose lantus, sliding scale -Glycemic consult in setting of IV steroids HLD: -Cont statin GILLES: -CPAP Depression, anxiety: -Cont Effexor BPH: -Cont tamsulosin, finasteride DVT Ppx: SQ heparin Code status: FULL per discussion with patient PCP: Syed Valdivia Dispo: Admitted to telemetry Patient seen in collaboration with Dr. Youssef. Please see addendum. ATTENDING ADDENDUM : Patient seen and examined, care coordinated with Christal Robles PA-C Labs and images reviewed This is a 76-year-old male with complex past medical history of type 2 diabetes ambulatory dysfunction obesity hypoventilation syndrome, diastolic heart failure , hypertension Came to ER with complaint of generalized weakness fatigue, Patient was seen in the ER on July 08 with urinary symptoms urine culture grew Pseudomonas sensitive to cefepime intermediate sensitive to Cipro, Levaquin Patient was discharged home with p.o. Keflex continued to have urinary symptoms generalized weakness fatigue in ER was found to be lethargic, diffuse wheezing, hypoxic in room air 88%, oxygenation improved to 92% with 2 L O2 via via nasal cannula Chest x-ray shows cardiomegaly, no evidence of effusion or infiltrate Physical exam: As per Christal Robles PA-C Assessment and plan: Acute on chronic respiratory failure/obesity hypoventilation syndrome -Possible secondary to COPD exacerbation, patient presents with diffuse wheezing , symptoms improved with neb treatment and IV Solu-Medrol Patient will be continued with respiratory support with IV Solu-Medrol, as needed and scheduled neb treatment Ordered for ABG CPAP at night Confusion/ lethargy/metabolic encephalopathy: Patient presents with increased somnolence, falls to sleep in between conversation, No focal neurological deficit Possible metabolic encephalopathy due to UTI Stat ABG ordered to assess for CO2 retention Continue to monitor Pseudomonas UTI Patient is started with empiric antibiotic with IV cefepime( sensitive ) Repeat urine culture ordered Chronic diastolic congestive heart failure No evidence of volume overload Patient is continued with outpatient regimen of Lasix and metolazone Follows with cardiology Dr. Abraham Echo on April 28, 2017: Normal LV chamber size with moderate concentric LVH Normal LV systolic function, EF 60-65% No segmental left ventricular wall motion abnormalities are noted. Grade 2 diastolic dysfunction. Aortic valve sclerosis mild, without significant aortic valvular stenosis. Mild tricuspid regurgitation Pulmonary hypertension is likely presents with a RVSP of 40-50 mmHg Unable to accurately assess IVC size due to patient sitting upright during exam Mild biatrial enlargement Repeat echo ordered to assess progression of pulmonary pulmonary hypertension Elevated d-dimer -D-dimer elevated more than 2100 High risk for thrombo-embolic phenomena due to obesity minimum mobility Lower extremity Doppler negative for DVT patient has baseline creatinine of 1.39 IV contrast studies avoided as patient is receiving IV Lasix and metoprolol Echo to assess right heart strain In case of significant clinical suspicion patient will need a CTA of chest to rule out PE Consider holding diuretics and gentle IV hydration to prevent contrast-induced nephropathy CKD stage III Creatinine approximately baseline Monitor creatinine while getting diuretics CODE STATUS full code DVT prophylaxis: Moderate to high risk due to poor mobility body habitus ordered for subcu heparin Disposition: Lives at home with , uses power chair to ambulate PTOT evaluation prior to discharge home social service consulted for discharge planning Please refer to the documentation of Christal Robles PA-C, for further discussion of other chronic issues Radha Youssef MD Resuscitation Status VTE Prophylaxis Will order VTE Prophylaxis: Yes
[2017-07-12] MEDS ORDERED: PHARMACY GLYCEMIC MGMT CONSULT SCH (13:28)
[2017-07-12] MEDS ORDERED: METHYLPREDNISOLONE 125 MG VIAL ONE (13:30)
[2017-07-12] MEDS ORDERED: GLUCOSE 40% GEL 15 GM TUBE PO PRN (13:45)
[2017-07-12] MEDS ORDERED: GLUCOSE 10 TABS/TUBE PO PRN (13:45)
[2017-07-12] MEDS ORDERED: PATIENT'S HEIGHT AND/OR WEIGHT NEEDED SCH (13:45)
[2017-07-12] MEDS ORDERED: DEXTROSE 50% 50 ML SYR IV PRN (13:45)
[2017-07-12] MEDS ORDERED: GLUCAGON FOR INJ 1 MG VIAL SQ PRN (13:45)
[2017-07-12] MEDS ORDERED: ASCO500T3 PO (13:46)
[2017-07-12] MEDS ORDERED: FRS/80 PO (13:46)
[2017-07-12] MEDS ORDERED: ACET-1311 PO (13:46)
[2017-07-12] MEDS ORDERED: CALC-602 PO (13:46)
--- NOTE | 2017-07-12 13:46 | Pharmacy Progress Note ---
Glycemic Control Intl Consult Date of Service Jul 12, 2017. Scope Glycemic Pharmacist consulted by Christal Robles PA-C on 07/12/17 for glycemic control and to write orders per [facility] inpatient glycemic control protocol Objective Accuchecks BSG (last 24hrs): Test 07/12/17 10:20 Random Glucose 124 mg/dl (70-99) Laboratory Data (last 24hrs) Test 07/12/17 10:20 Anion Gap 5.0 mmol/L BUN/Creatinine Ratio 22.6 Blood Urea Nitrogen 29 mg/dl Creatinine 1.29 mg/dl Potassium Level 3.8 mmol/L Sodium Level 139 mmol/L White Blood Count 8.36 K/uL Red Blood Count 4.51 M/uL Hemoglobin 9.6 g/dL Hematocrit 33.0 % Mean Corpuscular Volume 73.2 fL Mean Corpuscular Hemoglobin 21.3 pg Mean Corpuscular Hemoglobin Concent 29.1 g/dl Platelet Count 264 K/uL Mean Platelet Volume 9.9 fL Neutrophils (%) (Auto) 63.1 % Lymphocytes (%) (Auto) 24.4 % Monocytes (%) (Auto) 7.4 % Eosinophils (%) (Auto) 4.7 % Basophils (%) (Auto) 0.2 % Neutrophils # (Auto) 5.27 K/uL Lymphocytes # (Auto) 2.04 K/uL Monocytes # (Auto) 0.62 K/uL Eosinophils # (Auto) 0.39 K/uL Basophils # (Auto) 0.02 K/uL Recent Pertinent Medications Outpatient Anti-diabetic Regimen: * Lantus 25 units HS * Novolog 10 units AC and Sliding scale * A1c = 7.9 % 04/29/17 Risk Factors for Insulin Resistance: * Steroids: Solu-medrol -125mg IV x1 in ED then 60mg IV Q8H * Infection: Pseudomonas UTI - IV Cefepime * Diet: Type 2 DM Assessment & Plan ASSESSMENT: * 76 year old type 2 diabetic admitted for pseudomonas UTI, IV Cefepime. * Pt receiving IV Steroids for asthma exacerbation * Will begin with tight CF and CR and an additional dose of Lantus and accuchecks overnight to cover IV steroid induced hyperglycemia PLAN FOR INPATIENT GLYCEMIC CONTROL: * Basal insulin with LANTUS 25 units SQ x1 dose now then HS * Correctional Insulin with NOVOLOG per scale ACHS or Q6hrs while NPO and overnight at 0000 and 0400 * Goal Range: Low 110 mg/dL - High 140 mg/dL * Correction Factor: 12 mg/dL/unit * Nutritional / Prandial insulin per carb ratio of 1 unit per 4 grams CHO consumed * Please note that the plan above was derived based on current level of insulin resistance and hospital stress. These recommendations are appropriate for inpatient admission only. Plan of care upon discharge will need to be reassessed to avoid potential outpatient hypo/hyperglycemia. Thank you.
[2017-07-12] MEDS ORDERED: CEFEPIME CONSULT ACTIVE PRN (14:13)
[2017-07-12] MEDS ORDERED: PHENAZOPYRIDINE HCL 200 MG TAB PO PRN (14:30)
[2017-07-12] MEDS ORDERED: LOPERAMIDE HCL 2 MG CAP PO PRN (14:30)
--- NOTE | 2017-07-12 14:58 | DIAGNOSTIC IMAGING REPORT ---
VENOUS DOPPLER LWR EXT BILA CLINICAL HISTORY: 76 years-old Male presenting with d dimer 2100. TECHNIQUE: Real-time grayscale and color and spectral Doppler ultrasound imaging of the veins of the bilateral lower extremities was performed. Compression and augmentation were also utilized. COMPARISON: 07/13/2015. FINDINGS: Right: Common femoral vein: Patent. Greater saphenous vein: Patent. Deep femoral vein: Patent. Femoral vein: Patent. Popliteal vein: Patent. Calf veins: Limited visualization. Left: Common femoral vein: Patent. Greater saphenous vein: Patent. Deep femoral vein: Patent. Femoral vein: Patent. Popliteal vein: Patent. Calf veins: Limited visualization. Other: None. IMPRESSION: No evidence of deep venous thrombosis. Electronically signed by: Anant Lugo M.D. 07/12/2017 2:57 PM Dictated Date/Time: 07/12/2017 2:57 PM
[2017-07-12] MEDS: INSULIN GLARGINE SOLOSTAR 100 UNITS/ML 3 ML PEN SC SCH ×2 (15:00→21:44)
[2017-07-12 15:30] VITALS: BP 150/77; PULSE 61; TEMP 36.4; O2SAT 98; Ht 177.8 cm; Wt 118.4 kg
[2017-07-12] MEDS: ALBUT/IPRATROP 3MG/0.5MG NEB 3 ML VIAL INH SCH ×2 (16:04→19:37)
[2017-07-12 16:07] VITALS: PULSE 54; O2SAT 99
[2017-07-12] MEDS: INSULIN ASPART 100 UNITS/ML 3 ML PEN SC SCH ×2 (16:15→21:44)
[2017-07-12] MEDS: POTASSIUM CHLORIDE 20 MEQ TABCR PO SCH (16:56)
[2017-07-12] MEDS ORDERED: ACETAMINOPHEN 325 MG TAB PO PRN (17:45)
[2017-07-12] MEDS: CEFEPIME IV 2,000 MG in SYRINGE 7.5 ML IV SCH (17:48)
[2017-07-12 19:37] VITALS: PULSE 71; O2SAT 96
[2017-07-12 19:55] VITALS: BP 149/68; PULSE 75; TEMP 36.6; O2SAT 96
[2017-07-12 20:00] VITALS: O2SAT 96
[2017-07-12] MEDS ORDERED: GABAPENTIN 300 MG CAP PO SCH (21:00)
[2017-07-12] MEDS: NYSTATIN/TRIAMCINOLONE CR 15 GM TUBE EXT SCH (21:24)
[2017-07-12] MEDS: FUROSEMIDE 80 MG TAB PO SCH (21:27)
[2017-07-12] MEDS: VENLAFAXINE HCL 37.5 MG TAB PO SCH (21:28)
[2017-07-12] MEDS: SIMVASTATIN 40 MG TAB PO SCH (21:28)
[2017-07-12] MEDS: TAMSULOSIN HCL 0.4 MG CAP PO SCH (21:28)
[2017-07-12] MEDS: METOPROLOL TARTRATE 25 MG TAB PO SCH (21:30)
[2017-07-12] MEDS: HEPARIN SOD 5000 UNIT/0.5 ML CARP SQ SCH (21:48)
[2017-07-12] MEDS: METHYLPREDNISOLONE IV 60 MG in SYRINGE 0 ML IV SCH (21:54)
[2017-07-12] MEDS: ACETAMINOPHEN 325 MG TAB PO PRN (21:54)
[2017-07-12 23:21] VITALS: BP 156/60; PULSE 81; TEMP 36.5; O2SAT 94
[2017-07-12] MEDS ORDERED: HALOPERIDOL 1 MG TAB PO ONE (23:50)
[2017-07-13] VITALS (14 sets, daily range): BP systolic 126–163; BP diastolic 54–76; PULSE 74–100; TEMP 36.5–37; O2SAT 90–97
[2017-07-13] MEDS ORDERED: INSULIN HUMAN REGULAR PER UNIT 10 UNITS in SYRINGE 9.9 ML IV SCH (00:15)
[2017-07-13] MEDS: INSULIN ASPART 100 UNITS/ML 3 ML PEN SC SCH ×7 (00:27→21:07)
[2017-07-13] MEDS: CEFEPIME IV 2,000 MG in SYRINGE 7.5 ML IV SCH ×2 (05:58→17:28)
[2017-07-13] MEDS: METHYLPREDNISOLONE IV 60 MG in SYRINGE 0 ML IV SCH (06:00)
[2017-07-13] MEDS: HEPARIN SOD 5000 UNIT/0.5 ML CARP SQ SCH ×3 (06:02→21:06)
[2017-07-13] MEDS: ALBUT/IPRATROP 3MG/0.5MG NEB 3 ML VIAL INH SCH ×4 (06:52→19:58)
[2017-07-13] MEDS: FINASTERIDE 5 MG TAB PO SCH (07:55)
[2017-07-13] MEDS: CALCIUM 600MG + VIT D 400 IU TAB PO SCH (07:55)
[2017-07-13] MEDS: HALOPERIDOL 1 MG TAB PO PRN ×2 (07:55→21:38)
[2017-07-13] MEDS: MULTIVITAMIN TAB PO SCH (07:56)
[2017-07-13] MEDS: VENLAFAXINE HCL 37.5 MG TAB PO SCH ×2 (07:56→20:50)
[2017-07-13] MEDS: ASCORBIC ACID 500 MG TAB PO SCH (07:56)
[2017-07-13] MEDS: MAGNESIUM OXIDE 400 MG TAB PO SCH (07:56)
[2017-07-13] MEDS: FUROSEMIDE 80 MG TAB PO SCH ×2 (07:56→20:48)
[2017-07-13] MEDS: ASPIRIN 81 MG ECTAB PO SCH (07:56)
[2017-07-13] MEDS: POTASSIUM CHLORIDE 20 MEQ TABCR PO SCH ×2 (07:56→17:28)
[2017-07-13] MEDS: NYSTATIN/TRIAMCINOLONE CR 15 GM TUBE EXT SCH ×2 (07:58→20:47)
[2017-07-13] MEDS: PANTOprazole SOD 40 MG TAB PO SCH (07:58)
[2017-07-13 08:21] LABS: CALCIUM 8.7 mg/dl (8.5-10.1); CREATININE 1.19 mg/dl (0.60-1.40)
[2017-07-13 08:28] LABS: HEMATOCRIT 33.6 % (42-52); HEMOGLOBIN 9.8 g/dL (14.0-18.0); MEAN CELL VOLUME 72.6 fL (80-100); MEAN CORPUSCULAR HEMOGLOBIN 21.2 pg (25-34); MEAN CORPUSCULAR HGB CONC 29.2 g/dl (32-36); MEAN PLATELET VOLUME 9.9 fL (7.4-10.4); PLATELET COUNT 248 K/uL (130-400); RED CELL DISTRIBUTION WIDTH CV 17.7 % (11.5-14.5); RED CELL DISTRIBUTION WIDTH SD 47.2 fL (36.4-46.3)
[2017-07-13] MEDS ORDERED: INSULIN GLARGINE SOLOSTAR 100 UNITS/ML 3 ML PEN SC SCH (09:00)
[2017-07-13] MEDS: METOPROLOL TARTRATE 25 MG TAB PO SCH ×2 (09:48→20:48)
--- NOTE | 2017-07-13 10:34 | Pharmacy Progress Note ---
Glycemic Control Progress Note Date of Service Jul 13, 2017. Scope Glycemic Pharmacist consulted for glycemic control to write orders per [facility] inpatient glycemic control protocol. Objective Accuchecks BSG (last 24hrs): Test 07/12/17 16:25 07/12/17 20:42 07/12/17 23:58 07/13/17 00:07 Bedside Glucose 99 mg/dl (70-99) 193 mg/dl (70-99) 384 mg/dl (70-99) 357 mg/dl (70-99) Test 07/13/17 03:56 07/13/17 06:50 07/13/17 07:24 Bedside Glucose 163 mg/dl (70-99) 146 mg/dl (70-99) Random Glucose 133 mg/dl (70-99) HbA1c: 7.9% on 04/29/17 Recent Pertinent Medications The patient is currently receiving: * Basal insulin: Lantus 20-25 units every 12 hours * Correctional Insulin: Novolog Correction per scale ACHS Goal Range: Low 110 mg/dL - High 140 mg/dL Correction Factor: 12 mg/dL/unit * Prandial insulin: Per carb ratio of 1 unit per 4 grams CHO consumed Outpatient Anti-Diabetic Meds Basal Insulin * Lantus 25 units SQ PM Bolus Insulin * NovoLog 10 units SQ AC Total daily outpatient dose = 55 units/day Assessment & Plan ASSESSMENT: * See progress note from 07/12/17 for more background info, in short: * Pt receiving SQ basal bolus insulin regimen for hyperglycemia secondary to baseline DM (outpatient regimen on hold),stress/infection, steroids * Pt with episode of SEVERE hyperglycemia overnight secondary to high dose steroids given in ED and then scheduled Q8hrs for inpatient use. Additional dose of Lantus was ordered ARACELI after Solumedrol 125mg IV given in ED, but, unfortunately this was non-administered by nursing because they thought it was a mistake. Since additional insulin was not given BSG kayy to 386mg/dl. Regular insulin IVP (10 units) plus large SQ doses of NovoLog Q4hrs were required to bring BSG back into range. * Changes needed to insulin regimen: * AM Fasting BSG = 146 mg/dl. This is in goal range for patient based on inpatient targets and co-morbidities. Additional dose of Lantus 20 units SQ was given this morning while Solumedrol 60mg IV Q8hrs was ordered. However, Solumedrol then tapered to 40mg IV Q12hrs. Will need to adjust basal insulin for step down in steroid dosing. * Post-prandial BSGs are in range, however, will empirically loosen CF/CR for step down in steroid dosing. PLAN FOR INPATIENT GLYCEMIC CONTROL: * Basal insulin: decrease dosing back to outpatient dosing for decreased steroid dosing * Lantus 25 units SQ HS (outpatient dosing) * Bolus insulin: empirically loosen parameters for decreased steroid dosing * NovoLog per scale ACHS or Q6hrs while NPO * Goal Range: Low 110 mg/dL - High 140 mg/dL * Correction Factor: 15 mg/dL/unit * Nutritional / Prandial insulin per carb ratio of 1 unit per 5 grams CHO consumed RECOMMENDATIONS FOR DISCHARGE: * A1c is near goal range for patient age and comorbidities @ 7.9% on 04/29/17 * No changes need made at discharge, unless, prednisone taper is ordered at discharge (additional NovoLog with meals may be needed to cover steroid induced hyperglycemia). * Please note that the plan above was derived based on current level of insulin resistance and hospital stress. These recommendations are appropriate for inpatient admission only. Plan of care upon discharge will need to be reassessed to avoid potential outpatient hypo/hyperglycemia. Thank you.
[2017-07-13] MEDS ORDERED: PERFLUTREN LIPID MICROSPHERE (DEFINITY) IV ONE (10:45)
[2017-07-13] MEDS: ACETAMINOPHEN 325 MG TAB PO PRN ×2 (13:33→21:08)
--- NOTE | 2017-07-13 13:47 | PULMONARY CONSULTATION ---
DATE OF CONSULTATION: 07/13/2017 TIME: 9:20 a.m. REPORT OF CONSULTATION: The patient was seen in room 233. He is a 76-year-old male who came to the Emergency Room yesterday. He was told to come because of a urinary tract infection that was resistant to oral medications. He had gone to the ER on July 08. He was started on Keflex for a urinary tract infection. Ultimately, the cultures showed pseudomonas, which was resistant to a variety of agents. He was told to return to the Emergency Department for IV antibiotics. He was still having burning with urination. The patient had reported a lot of fatigue. He reportedly has difficulty sleeping. He has had numerous hospital stays over the past 6 months. He was admitted from 02/03/2017 until 02/09/2017 with altered mental status. He was found to have an elevated pCO2 of 64. He was again admitted from 02/13/2017 until 02/19/2017 with mental status changes. He was hospitalized with CHF from 04/28/2017 until 05/08/2017. He was back in May with respiratory failure and high carbon dioxide levels from 06/03/2017 until 06/07/2017. The patient does carry a history of sleep apnea. He is noncompliant with CPAP. I am not sure we know exactly whether he has CPAP or BiPAP at home and he does not know. I could not find records of old sleep studies. Nonetheless, he admits he is noncompliant. He states he wears it may be 3 hours per night, but I suspect it is less than that. He has been refusing BiPAP here according to nursing staff. He is suspected of having obesity hypoventilation syndrome along with the sleep apnea and this is likely accounting for his hypercarbia. He did have a blood gas done last evening showing a pH of 7.33 with a pCO2 of 65 and a pO2 of 73 on 4 liters of oxygen. The patient denies shortness of breath to me. He denies cough or sputum production. Although he has had altered mental status, he is awake and alert at present. He was able to identify the day, the month where he was, the year, etc. The patient is essentially nonambulatory. He has a scooter in his room that he states he uses at home. He states he sleeps in a hospital bed at home. He does not have any set schedule. He admits to being more sleepy during the day than he is at night. The patient denies cough or sputum production or hemoptysis. He denies chills, fevers or sweats. PAST SURGICAL HISTORY: 1. Cataract surgeries. 2. Eyelid surgery. 3. Left foot surgery. 4. Panniculectomy. 5. Tonsillectomy. PAST MEDICAL HISTORY: 1. Obesity hypoventilation syndrome. 2. Sleep apnea. 3. Diabetes mellitus with neuropathy. 4. Anxiety. 5. Depression. 6. Diastolic congestive heart failure. 7. Hypertension. 8. Reflux. 9. Recurrent urinary tract infections. SOCIAL HISTORY: Tobacco none for 50 years. ETOH -- drank heavily in the past, but also quit in his mid 20s, which is when he also quit smoking. FAMILY HISTORY: Positive for diabetes, coronary artery disease, CHF and hypertension. HOME MEDICATIONS: 1. Vitamin C 1 daily. 2. Aspirin 81 mg daily. 3. Calcium D daily. 4. Keflex. 5. Finasteride 5 mg daily. 6. Folic acid daily. 7. Furosemide 80 mg b.i.d. 8. Gabapentin. 9. Insulin. 10. Imodium p.r.n. 11. Magnesium oxide. 12. Metolazone 5 mg 2 times per week. 13. Metoprolol. 14. Omeprazole. 15. Pyridium. 16. Potassium 20 mEq b.i.d. 17. Simvastatin 40 mg daily. 18. Tamsulosin 0.4 mg at bedtime. 19. Venlafaxine 75 mg b.i.d. REVIEW OF SYSTEMS: The patient is likely not the best historian. He essentially denies all complaints other than urinary symptoms. PHYSICAL EXAMINATION: GENERAL: The patient is a 76-year-old male who for me was very cooperative, alert and oriented. He has been very restless for nursing staff. VITAL SIGNS: Temperature is 36.8. I have not found any fever since admission. He looks very comfortable. The patient's weight is 124 kilograms and his BMI is 39.2. HEENT: Eye exam suggested implants. Nares were clear. Mouth exam shows minimal teeth. NECK: Palpation of the neck reveals no lymph nodes. CARDIAC: Rate is 83 per minute. The rhythm was regular. Blood pressure was 131/62. LUNGS: Auscultation of the lung almodovar revealed rales in both lower lung almodovar posteriorly. Elsewhere, the breath sounds were clear. No wheezing was noted. His respiratory rate was 20. Saturation was 85%, but he did not have the oxygen into the nasal passages. It was 89% after 2 or 3 minutes. ABDOMEN: Markedly obese. Bowel sounds were present and were active. There was no tenderness to palpation. EXTREMITIES: Showed no cyanosis, clubbing or edema. Reportedly, he had leg swelling on admission, but he does not have any this morning. They are not able to keep track of the urine output as he is incontinent. LABORATORY DATA: White count was 8.36. Hemoglobin 9.6. Platelets 264,000. This morning, his white count is down to 4.1. D-dimer was elevated at 2100. Coags were normal. Urinalysis showed 2+ blood, but was negative for bacteria. Blood gas showed a pH of 7.33 with a pCO2 of 65 and a pO2 of 73 on 4 liters. Electrolytes show sodium 139, potassium 4, chloride 99, bicarbonate 35. The BUN was 30 with a creatinine of 1.19. Yesterday, his creatinine was 1.29. BNP was 799. Ammonia level was 20, which is within the limits of normal. Liver functions were not elevated. IMPRESSION: 1. [id number] respiratory failure. 2. Obesity hypoventilation syndrome. 3. Obstructive sleep apnea. 4. Urinary tract infection. 5. Anemia. COMMENTS: The patient seems very comfortable. The Emergency Room and the admitting doctor reported wheezes yesterday. I hear none today. He did have a negative venous Doppler. His chest x-ray from yesterday showed cardiomegaly without definite evidence of pulmonary edema. He had hypoventilatory changes, perhaps from his obesity. The patient's noncompliance with CPAP or BiPAP makes it difficult to improve his status. At the present time, he seems very comfortable. I would have a tendency to substantially decrease the steroids in light of the fact he is not wheezing. I will cut the methylprednisolone down to 40 q. 12 and if he is stable tomorrow, can change to oral. Obviously, this would improve his blood sugar situation and even perhaps the infection. He is getting DuoNeb treatments and I would certainly continue those. I had seen him on 1 prior hospital stay on a consultation basis and I know the patient was very difficult to get to cooperate with therapy. I would encourage him to wear his BiPAP nightly, but I am doubtful that he will do so. I tried to explain to him the benefits related to doing this, but I do not think he has any insight or understanding.I agree with holding on a CT angio due to the kidney disease and in light of clinical improvement. He did have a neg CTA in August 2016. Thank you very much for asking me to assist in his care. ARACELI
--- NOTE | 2017-07-13 14:40 | ECHOCARDIOGRAM REPORT ---
*NOTICE TO RECEIVING DEMOCRAT AGENCY This information is strictly Confidential and protected under [place] law. [place] law prohibits you from making any further disclosure of this information unless further disclosure is expressly permitted by the written consent of the person to whom it pertains or is authorized by law. A general authorization for the release of medical or other information is not sufficient for this purpose. Hospital accepts no responsibility if the information is made available to any other person, INCLUDING THE PATIENT. Interpretation Summary * Name: JAKE LEWIS Study Date: 07/13/2017 10:18 AM BP: 137/65 mmHg * Patient Location: .2T\S\S233\S\1 HR: 74 * : 1940 (M/d/yyyy) Gender: Male Height: 70 in * Age: 76 yrs Ethnicity: [place] Weight: 277 lb * Ordering Physician: Radha Youssef * Referring Physician: Self, Referred * Performed By: Africa Ramirez RDCS * * Reason For Study: Pulmonary hypertension * BSA: 2.4 m2 * Grossly normal valvular structure and function. * -- Conclusions -- * The left ventricle is normal in size. * Ejection Fraction = 65-70%. * The right ventricular systolic function is normal. * The left atrium is mildly dilated. * The right atrium is mildly dilated. * Grossly normal valvular structure and function. Procedure Details * A complete two-dimensional transthoracic echocardiogram was performed (2D, M-mode, Doppler and color flow Doppler). * A contrast injection of Definity was performed to improve assessment of LV function. * Contrast was injected into an intravenous site in the left arm. * One vial of Definity ultrasound contrast was diluted in normal saline to a total volume of 10 ml. A total of '2' ml of solution was administered during imaging. * Lot # [id number] of Definity utilized for procedure. * Expiration date 1 JUL 01. * The attending nurse who injected the contrast agent was Carolina Bryan RN. Left Ventricle * The left ventricle is normal in size. * There is normal left ventricular wall thickness. * Ejection Fraction = 65-70%. * Left ventricular systolic function is normal. * The left ventricular wall motion is normal. Right Ventricle * The right ventricle is grossly normal size. * The right ventricular systolic function is normal. Atria * The left atrium is mildly dilated. * The right atrium is mildly dilated. * No ASD detected; PFO is not assessed. Mitral Valve * There is mild mitral annular calcification. * Significant mitral regurgitation is absent. Tricuspid Valve * The tricuspid valve is not well visualized. * Significant tricuspid regurgitation is absent. Aortic Valve * Aortic valve sclerosis mild, without significant aortic valvular stenosis. * The aortic valve is trileaflet. * There is no significant aortic regurgitation. Pulmonic Valve * The pulmonic valve is not well visualized. * There is no significant pulmonary regurgitation. Great Vessels * The aortic root and proximal ascending aorta are normal sized. Pericardium/Pleural * There is no pericardial effusion. MMode 2D Measurements and Calculations IVSd 0.96 cm LVIDd 4.7 cm LVIDs 3.0 cm LVPWd 1.2 cm IVS/LVPW 0.82 FS 35.1 % EDV(Teich) 102.1 ml ESV(Teich) 36.4 ml EF(Teich) 64.3 % EDV(cubed) 103.5 ml ESV(cubed) 28.4 ml EF(cubed) 72.6 % LV mass(C)d 179.3 grams LV mass(C)dI 74.8 grams/m\S\2 SV(Teich) 65.7 ml SI(Teich) 27.4 ml/m\S\2 SV(cubed) 75.2 ml SI(cubed) 31.4 ml/m\S\2 Ao root diam 3.3 cm Ao root area 8.4 cm\S\2 ACS 2.5 cm LA dimension 3.3 cm asc Aorta Diam 2.9 cm LA/Ao 1.0 LVOT diam 2.1 cm LVOT area 3.6 cm\S\2 LVAd ap4 35.7 cm\S\2 LVLd ap4 7.6 cm EDV(MOD-sp4) 134.5 ml EDV(sp4-el) 142.5 ml LVAs ap4 17.8 cm\S\2 LVLs ap4 5.8 cm ESV(MOD-sp4) 43.0 ml ESV(sp4-el) 46.4 ml EF(MOD-sp4) 68.0 % EF(sp4-el) 67.4 % LVAd ap2 29.3 cm\S\2 LVLd ap2 7.9 cm EDV(MOD-sp2) 88.4 ml EDV(sp2-el) 92.8 ml LVAs ap2 15.1 cm\S\2 LVLs ap2 6.5 cm ESV(MOD-sp2) 28.0 ml ESV(sp2-el) 29.9 ml EF(MOD-sp2) 68.3 % EF(sp2-el) 67.8 % LVLd %diff 3.9 % EDV(MOD-bp) 110.3 ml LVLs %diff 9.9 % ESV(MOD-bp) 36.2 ml EF(MOD-bp) 67.2 % SV(MOD-sp4) 91.5 ml SI(MOD-sp4) 38.2 ml/m\S\2 SV(MOD-sp2) 60.3 ml SI(MOD-sp2) 25.2 ml/m\S\2 SV(MOD-bp) 74.1 ml SI(MOD-bp) 30.9 ml/m\S\2 SV(sp4-el) 96.1 ml SI(sp4-el) 40.1 ml/m\S\2 SV(sp2-el) 62.9 ml SI(sp2-el) 26.2 ml/m\S\2 Doppler Measurements and Calculations MV E max gerry 102.3 cm/sec MV A max gerry 79.5 cm/sec MV E/A 1.3 MV P1/2t max gerry 110.3 cm/sec MV P1/2t 48.9 msec MVA(P1/2t) 4.5 cm\S\2 MV dec slope 661.4 cm/sec\S\2 MV dec time 0.21 sec Ao V2 max 133.0 cm/sec Ao max PG 7.1 mmHg Ao max PG (full) 2.5 mmHg CAITLIN(V,A) 2.9 cm\S\2 CAITLIN(V,D) 2.9 cm\S\2 LV V1 max PG 4.6 mmHg LV V1 max 106.7 cm/sec PA V2 max 142.5 cm/sec PA max PG 8.1 mmHg PA acc slope 522.0 cm/sec\S\2 PA acc time 0.13 sec TR max gerry 241.6 cm/sec PA pr(Accel) 18.8 mmHg
[2017-07-13] MEDS ORDERED: NURSING DECISION MEDICATION ORDER SCH (18:45)
--- NOTE | 2017-07-13 18:54 | Progress Note ---
Internal Med Progress Note Date of Service: Jul 13, 2017. Provider Documentation: SUBJECTIVE: resting comfortably afebrile denies sob no chest pain no nausea wants to go home but agrees to stay OBJECTIVE: Vital Signs-as noted below Exam: General-alert and oriented not in distress. Morbidly obese Neck-no neck masses Lungs-cta b/l no wheezing or crackles Heart-s1 and s2 heard regular no murmurs Abdomen-soft bowel sounds present non tender no distension Extremities-no edema no erythema Neuro-alert and oriented moves extremities Lab data as noted below. ASSESSMENT & PLAN: This is a 76yo M with a PMH of DM II, diastolic HF, asthma, GILLES, obesity hypoventilation syndrome and other medical problems listed below who presents with continued urinary symptoms that began a week ago and was found to have a pseudomonas UTI. Complicated UTI: Was Started on keflex in ED 07/08 Urine culture grew pseudomonas -Sensitive to cefepime, intermediate to cipro, levaquin started on cefepime needs picc line Acute respiratory failure 2/2 asthma exacerbation: Became hypoxic in ED to 88% on room air Underlying history of asthma, obesity hypoventilation CXR unremarkable Was started on IV steroids, nebs, supplemental O2 -D dimer elevated to 2100 Lower extremity doppler negative echo no right heart strain pulmonary o board and appreciate inputs no wheezing today cutting back on iv steroids. Chronic diastolic CHF: Was Recently seen by Dr. Abraham in clinic Home dose lasix increased to 80mg BID 2/2 hypervolemic state to home dose lasix, metolazone, beta boyd Low Na diet will monitor DM II: Recent a1c of 7.0 in May 2017 Holding home dose lantus, sliding scale Glycemic consult in setting of IV steroids on Lantus and iss will monitor HLD: On statin GILLES: CPAP Depression, anxiety: On Effexor BPH: On tamsulosin, finasteride DVT Ppx: SQ heparin Code status: FULL per admission Dispo: Transfer to medical floor Vital Signs: Date Time Temp Pulse Resp B/P (MAP) Pulse Ox O2 Delivery O2 Flow Rate FiO2 07/13/17 16:00 90 Room Air 07/13/17 15:10 36.7 83 18 126/54 (78) 90 Room Air 07/13/17 14:55 78 18 92 Room Air 07/13/17 11:35 36.9 87 16 151/75 (100) 91 Room Air 07/13/17 11:26 37.0 83 18 96 1.0 07/13/17 11:10 83 18 96 Nasal Cannula 2.0 07/13/17 10:51 37.0 100 20 127/73 (91) 94 Nasal Cannula 2.0 07/13/17 08:00 Nasal Cannula 2.0 07/13/17 07:38 36.8 84 20 131/62 (85) 93 Nasal Cannula 2.0 07/13/17 06:53 78 18 97 Nasal Cannula 3.0 07/13/17 04:00 95 Nasal Cannula 3.0 07/13/17 04:00 36.9 74 137/65 (89) 95 Nasal Cannula 3.0 07/13/17 00:00 92 Nasal Cannula 2.0 07/12/17 23:21 36.5 81 22 156/60 (92) 94 Nasal Cannula 2.0 07/12/17 20:00 96 Nasal Cannula 07/12/17 19:55 36.6 75 18 149/68 (95) 96 Nasal Cannula 07/12/17 19:37 71 18 96 Nasal Cannula 2.0 Lab Results: Results Past 24 Hours Test 07/12/17 20:42 07/12/17 23:58 07/13/17 00:07 07/13/17 03:56 Range/Units Bedside Glucose 193 384 357 163 70-99 mg/dl Test 07/13/17 06:50 07/13/17 07:24 07/13/17 09:35 07/13/17 11:19 Range/Units Bedside Glucose 146 233 70-99 mg/dl White Blood Count 4.10 4.8-10.8 K/uL Red Blood Count 4.63 4.7-6.1 M/uL Hemoglobin 9.8 14.0-18.0 g/dL Hematocrit 33.6 42-52 % Mean Corpuscular Volume 72.6 80-100 fL Mean Corpuscular Hemoglobin 21.2 25-34 pg Mean Corpuscular Hemoglobin Concent 29.2 32-36 g/dl RDW Standard Deviation 47.2 36.4-46.3 fL RDW Coefficient of Variation 17.7 11.5-14.5 % Platelet Count 248 130-400 K/uL Mean Platelet Volume 9.9 7.4-10.4 fL Sodium Level 139 136-145 mmol/L Potassium Level 4.0 3.5-5.1 mmol/L Chloride Level 99 98-107 mmol/L Carbon Dioxide Level 35 21-32 mmol/L Anion Gap 4.0 3-11 mmol/L Blood Urea Nitrogen 30 7-18 mg/dl Creatinine 1.19 0.60-1.40 mg/dl Est Creatinine Clear Calc Drug Dose 70.9 ml/min Estimated GFR () 68.8 Estimated GFR (Non- 59.4 BUN/Creatinine Ratio 25.1 10-20 Random Glucose 133 70-99 mg/dl Calcium Level 8.7 8.5-10.1 mg/dl Magnesium Level 2.4 1.8-2.4 mg/dl Thyroid Stimulating Hormone (TSH) 0.337 0.300-4.500 uIu/ml Arterial Blood pH 7.44 7.35-7.45 Arterial Blood Partial Pressure CO2 50 35-46 mmHg Arterial Blood Partial Pressure O2 75 80-95 mm/Hg Arterial Blood HCO3 33 19-24 mmol/L Arterial Blood Oxygen Saturation 93.3 90-95 % Arterial Blood Base Excess 7.8 -9-1.8 mEq/L Arterial Blood Gas Delivery 2L Khoa Test POS POS Test 07/13/17 16:56 Range/Units Bedside Glucose 157 70-99 mg/dl
[2017-07-13] MEDS ORDERED: MICONAZOLE NITRATE POWDER 43 GM EXT PRN (19:00)
[2017-07-13] MEDS: METHYLPREDNISOLONE IV 40 MG in SYRINGE 0 ML IV SCH (20:47)
[2017-07-13] MEDS: SIMVASTATIN 40 MG TAB PO SCH (20:49)
[2017-07-13] MEDS: TAMSULOSIN HCL 0.4 MG CAP PO SCH (20:50)
[2017-07-13] MEDS: INSULIN GLARGINE SOLOSTAR 100 UNITS/ML 3 ML PEN SC SCH (21:07)
[2017-07-14] VITALS (12 sets, daily range): BP systolic 136–175; BP diastolic 70–85; PULSE 77–85; TEMP 36.4–36.9; O2SAT 91–96
[2017-07-14] MEDS: ACETAMINOPHEN 325 MG TAB PO PRN ×2 (00:51→05:05)
[2017-07-14] MEDS ORDERED: GABAPENTIN 250 MG/5 ML 470 ML BTL PO ONE (01:05)
[2017-07-14] MEDS: INSULIN ASPART 100 UNITS/ML 3 ML PEN SC SCH ×5 (03:59→21:06)
[2017-07-14] MEDS: HEPARIN SOD 5000 UNIT/0.5 ML CARP SQ SCH ×3 (05:03→21:07)
[2017-07-14] MEDS: CEFEPIME IV 2,000 MG in SYRINGE 7.5 ML IV SCH ×2 (05:09→17:59)
[2017-07-14] MEDS: ALBUT/IPRATROP 3MG/0.5MG NEB 3 ML VIAL INH SCH ×4 (07:11→19:43)
[2017-07-14] MEDS: ASPIRIN 81 MG ECTAB PO SCH (07:46)
[2017-07-14] MEDS: VENLAFAXINE HCL 37.5 MG TAB PO SCH ×2 (07:46→21:09)
[2017-07-14] MEDS: CALCIUM 600MG + VIT D 400 IU TAB PO SCH (07:46)
[2017-07-14] MEDS: NYSTATIN/TRIAMCINOLONE CR 15 GM TUBE EXT SCH ×2 (07:46→21:07)
[2017-07-14] MEDS: FUROSEMIDE 80 MG TAB PO SCH ×2 (07:47→21:08)
[2017-07-14] MEDS: MULTIVITAMIN TAB PO SCH (07:47)
[2017-07-14] MEDS: METOPROLOL TARTRATE 25 MG TAB PO SCH ×2 (07:47→21:08)
[2017-07-14] MEDS: ASCORBIC ACID 500 MG TAB PO SCH (07:47)
[2017-07-14] MEDS: POTASSIUM CHLORIDE 20 MEQ TABCR PO SCH ×2 (07:47→17:38)
[2017-07-14] MEDS: MAGNESIUM OXIDE 400 MG TAB PO SCH (07:47)
[2017-07-14] MEDS: METHYLPREDNISOLONE IV 40 MG in SYRINGE 0 ML IV SCH (07:47)
[2017-07-14] MEDS: FINASTERIDE 5 MG TAB PO SCH (07:47)
[2017-07-14] MEDS: PANTOprazole SOD 40 MG TAB PO SCH (07:47)
[2017-07-14] MEDS ORDERED: INSULIN GLARGINE SOLOSTAR 100 UNITS/ML 3 ML PEN SC ONE (09:15)
[2017-07-14] MEDS: GABAPENTIN 250 MG/5 ML 470 ML BTL PO SCH ×2 (10:36→21:15)
--- NOTE | 2017-07-14 14:23 | Pharmacy Progress Note ---
Pharmacy Glycemic Short Note 2 Date of Service Jul 14, 2017. OUTPATIENT ANTIDIABETIC REGIMEN: * Lantus 25 units SQ HS * NovoLog 10 units SQ TIDM ASSESSMENT: * 76yo T2DM male receiving stressed outpatient SQ basal bolus insulin dosing for steroid induced hyperglycemia * Pt has been receiving ~ 100 units of insulin per day with near adequate control * 35-45 units of basal insulin + 55-65 units of prandial/correctional insulin * Preferred distribution of basal:prandial insulin for steroid induced hyperglycemia is 30%basal:70% prandial since steroids have their most profound effect on post-prandial hyperglycemia. Additionally, do not want overdosage of basal insulin on board when steroids are tapered. Current insulin dosing distribution is adequate. * AM fasting BSG is in goal range at 133mg/dl. Steroids decreased from Soluemdrol 60mg IV Q8hrs to Solumedrol 40mg IV Q12hrs. This should yield an improvement in BSGs, will empirically decrease basal * Since total dose of steroids is still >80mg/day will continue with max stress dosing of CF/CR PLAN FOR INPATIENT GLYCEMIC CONTROL: * Hold outpatient oral diabetes medications * Basal insulin * Lantus 10-15 units SQ daily in AM + 25 units SQ in PM * Bolus insulin * NovoLog per scale ACHS or Q6hrs while NPO * Goal Range: Low 110 mg/dL - High 140 mg/dL * Correction Factor: 15 mg/dL/unit * Nutritional / Prandial insulin per carb ratio of 1 unit per 5 grams CHO consumed RECOMMENDATIONS FOR DISCHARGE: * A1c is near goal range for patient age and comorbidities @ 7.9% on 04/29/17 * No changes need made at discharge, unless, prednisone taper is ordered at discharge (additional NovoLog with meals may be needed to cover steroid induced hyperglycemia).
--- NOTE | 2017-07-14 17:34 | PULMONARY PROGRESS NOTE ---
DATE: 07/14/2017 TIME: 5:10 p.m. SUBJECTIVE: The patient is not complaining of anything. He is dozing off and sleeping a lot. He does awaken readily, but was soon as you are done with him, he goes back to sleep. I spoke with nursing who does not have any specific complaints. His saturation had gone down at some point in time, so they put some oxygen on him. The patient refused CPAP or BiPAP last night as he usually does. OBJECTIVE: GENERAL: The patient is comfortable. He did awaken readily. He seemed oriented. VITAL SIGNS: Temperature 36.5. HEART: The heart rate was 85 per minute. Rhythm is regular. Blood pressure 136/70. LUNGS: Auscultation of the lung almodovar reveals rales posteriorly, bilaterally. They were involving not just the lower lung almodovar, but mid and upper lung lamodovar as well. They seemed a little more prominent than yesterday, but he does not seem to be symptomatic. His respiratory rate was 20. The patient was sitting in his scooter at the time of this evaluation. DATA: Repeat blood gas done yesterday showed a pH of 7.44 with a pCO2 of 50 and a pO2 of 75. That was on 2 liters of oxygen. It represented improvement from the night before when his pCO2 had been 65. IMPRESSIONS: 1. Acute on chronic respiratory failure with hypoxia and hypercarbia. 2. Obesity hypoventilation syndrome. 3. Obstructive sleep apnea. 4. Urinary tract infection. 5. Anemia. COMMENTS AND RECOMMENDATIONS: The patient seems stable. His noncompliance makes treatment more difficult. I have no specific suggestions at present and will sign off. Please feel free to call again if you would like the patient reevaluated.
--- NOTE | 2017-07-14 18:43 | Progress Note ---
Internal Med Progress Note Date of Service: Jul 14, 2017. Provider Documentation: SUBJECTIVE: resting comfortably on his wheel chair afebrile says no cough breathing is fine no chest pain moved bowels urine is clear wants to go home tomorrow OBJECTIVE: Vital Signs-as noted below Exam: General-alert and oriented not in distress. Morbidly obese Neck-no neck masses Lungs-cta b/l no wheezing or crackles Heart-s1 and s2 heard regular no murmurs Abdomen-soft bowel sounds present non tender no distension Extremities-no edema no erythema Neuro-alert and oriented moves extremities Lab data as noted below. ASSESSMENT & PLAN: This is a 76yo M with a PMH of DM II, diastolic HF, asthma, GILLES, obesity hypoventilation syndrome and other medical problems listed below who presents with continued urinary symptoms that began a week ago and was found to have a pseudomonas UTI. Complicated UTI: Was Started on keflex in ED 07/08 Urine culture grew pseudomonas -Sensitive to cefepime, intermediate to cipro, levaquin started on cefepime plan for picc line stable currently Acute respiratory failure 2/2 asthma exacerbation: Became hypoxic in ED to 88% on room air Underlying history of asthma, obesity hypoventilation CXR unremarkable Was started on IV steroids, nebs, supplemental O2 -D dimer elevated to 2100 Lower extremity doppler negative echo no right heart strain pulmonary o board and appreciate inputs no wheezing today cutting back on iv steroids to po steroids stable Chronic diastolic CHF: Was Recently seen by Dr. Abraham in clinic Home dose lasix increased to 80mg BID 2/2 hypervolemic state to home dose lasix, metolazone, beta boyd Low Na diet stable will monitor DM II: Recent a1c of 7.0 in May 2017 Holding home dose lantus, sliding scale Glycemic consult in setting of IV steroids on Lantus and iss will monitor HLD: On statin GILLES: CPAP Depression, anxiety: On Effexor BPH: On tamsulosin, finasteride DVT Ppx: SQ heparin Code status: FULL per admission Dispo: pt/ot social service for d/c planning possible d/c in am Vital Signs: Date Time Temp Pulse Resp B/P (MAP) Pulse Ox O2 Delivery O2 Flow Rate FiO2 07/14/17 15:50 91 Nasal Cannula 2.0 07/14/17 15:49 36.5 85 20 136/70 (92) 91 Room Air 07/14/17 15:01 80 18 93 Room Air 07/14/17 11:22 77 18 93 Room Air 07/14/17 11:17 36.5 80 20 162/74 (103) 94 07/14/17 08:01 92 Nasal Cannula 2.0 07/14/17 07:41 36.4 82 20 175/85 (115) 91 Room Air 07/14/17 07:11 83 18 94 Room Air 07/14/17 04:45 36.9 84 20 144/78 (100) 94 Nasal Cannula 2.0 07/14/17 00:20 Room Air 07/13/17 23:58 36.7 82 22 163/76 (105) 91 Room Air 07/13/17 20:20 36.5 86 20 134/59 (84) 92 Room Air 07/13/17 19:25 83 18 94 Room Air Lab Results: Results Past 24 Hours Test 07/13/17 20:48 07/14/17 00:31 07/14/17 03:35 07/14/17 05:41 Range/Units Bedside Glucose 89 114 207 70-99 mg/dl Magnesium Level 2.5 1.8-2.4 mg/dl Test 07/14/17 08:00 07/14/17 11:46 07/14/17 16:39 Range/Units Bedside Glucose 133 197 194 70-99 mg/dl
[2017-07-14] MEDS: INSULIN GLARGINE SOLOSTAR 100 UNITS/ML 3 ML PEN SC SCH (21:06)
[2017-07-14] MEDS: TAMSULOSIN HCL 0.4 MG CAP PO SCH (21:09)
[2017-07-14] MEDS: SIMVASTATIN 40 MG TAB PO SCH (21:10)
[2017-07-15] VITALS (11 sets, daily range): BP systolic 151–177; BP diastolic 72–98; PULSE 65–84; TEMP 36.4–37; O2SAT 90–99
[2017-07-15] MEDS: HEPARIN SOD 5000 UNIT/0.5 ML CARP SQ SCH ×3 (05:42→21:16)
[2017-07-15] MEDS: CEFEPIME IV 2,000 MG in SYRINGE 7.5 ML IV SCH ×2 (05:44→17:50)
[2017-07-15] MEDS: ALBUT/IPRATROP 3MG/0.5MG NEB 3 ML VIAL INH SCH ×4 (07:15→20:00)
[2017-07-15 07:18] LABS: HEMATOCRIT 35.8 % (42-52); HEMOGLOBIN 10.3 g/dL (14.0-18.0); MEAN CELL VOLUME 73.2 fL (80-100); MEAN CORPUSCULAR HEMOGLOBIN 21.1 pg (25-34); MEAN CORPUSCULAR HGB CONC 28.8 g/dl (32-36); PLATELET COUNT 278 K/uL (130-400); RED CELL DISTRIBUTION WIDTH CV 17.9 % (11.5-14.5); RED CELL DISTRIBUTION WIDTH SD 47.8 fL (36.4-46.3); WHITE BLOOD COUNT 9.32 K/uL (4.8-10.8)
[2017-07-15 07:21] LABS: CREATININE 1.33 mg/dl (0.60-1.40)
[2017-07-15] MEDS ORDERED: INSULIN GLARGINE SOLOSTAR 100 UNITS/ML 3 ML PEN SC SCH (08:00)
[2017-07-15] MEDS ORDERED: NovoLIN-N (NPH) PER UNIT CHARGE SQ ONE (08:15)
[2017-07-15] MEDS: NYSTATIN/TRIAMCINOLONE CR 15 GM TUBE EXT SCH ×2 (08:21→20:06)
[2017-07-15] MEDS: CALCIUM 600MG + VIT D 400 IU TAB PO SCH (08:23)
[2017-07-15] MEDS: ASPIRIN 81 MG ECTAB PO SCH (08:24)
[2017-07-15] MEDS: VENLAFAXINE HCL 37.5 MG TAB PO SCH ×2 (08:25→20:06)
[2017-07-15] MEDS: POTASSIUM CHLORIDE 20 MEQ TABCR PO SCH ×2 (08:27→17:50)
[2017-07-15] MEDS: FUROSEMIDE 80 MG TAB PO SCH ×2 (08:28→20:06)
[2017-07-15] MEDS: METOPROLOL TARTRATE 25 MG TAB PO SCH ×2 (08:33→20:06)
[2017-07-15] MEDS: MAGNESIUM OXIDE 400 MG TAB PO SCH (08:34)
[2017-07-15] MEDS: MULTIVITAMIN TAB PO SCH (08:35)
[2017-07-15] MEDS: FINASTERIDE 5 MG TAB PO SCH (08:36)
[2017-07-15] MEDS: ASCORBIC ACID 500 MG TAB PO SCH (08:37)
[2017-07-15] MEDS: PANTOprazole SOD 40 MG TAB PO SCH (08:37)
[2017-07-15] MEDS: GABAPENTIN 250 MG/5 ML 470 ML BTL PO SCH ×2 (08:49→20:12)
[2017-07-15] MEDS: INSULIN ASPART 100 UNITS/ML 3 ML PEN SC SCH ×4 (09:18→21:15)
--- NOTE | 2017-07-15 13:25 | Pharmacy Progress Note ---
Pharmacy Glycemic Short Note 2 Date of Service Jul 15, 2017. OUTPATIENT ANTIDIABETIC REGIMEN: * Lantus 25 units SQ HS * NovoLog 10 units SQ TIDM ASSESSMENT: * Mr. Bowen received 87 units of insulin yesterday with BSGs ranging from 113- 223 mg/dL in the past 24 hours * He has been switched to once daily prednisone, starting today * Will plan to switch AM Lantus to a once daily NPH dose to coincide with the once daily prednisone, which has similar kinetics in terms of BSG effects * We typically use 0.4 units/kg of NPH when on 40 mg of prednisone, however, I' m concerned to use this high of a dose since I still want to use some Novolog coverage, which he usually does at home * I'm estimating that prandial needs are around 50 units/day so will give 1/2 of this as NPH this AM and the other 1/2 from his Novolog. Will plan to loosen CF to 7 to equal ~25 units of prandial coverage for the day. PLAN FOR INPATIENT GLYCEMIC CONTROL: * Hold outpatient oral diabetes medications * Basal insulin * Continue Lantus 25 units SQ in PM (home dose) * Add NPH 25 units x 1 this AM to be given w/ prednisone dose - further doses dependent on BSGs * Bolus insulin * NovoLog per scale ACHS or Q6hrs while NPO * Goal Range: Low 110 mg/dL - High 140 mg/dL * Correction Factor: 15 mg/dL/unit * LOOSEN to Nutritional / Prandial insulin per carb ratio of 1 unit per 7 grams CHO consumed RECOMMENDATIONS FOR DISCHARGE: * A1c is near goal range for patient age and comorbidities @ 7.9% on 04/29/17 * No changes need made at discharge, unless, prednisone taper is ordered at discharge (additional NovoLog with meals may be needed to cover steroid induced hyperglycemia).
--- NOTE | 2017-07-15 18:05 | Progress Note ---
Internal Med Progress Note Date of Service: Jul 15, 2017. Provider Documentation: SUBJECTIVE: resting comfortably on the bed afebrile denies sob or cough eating fine no abdominal pain ok to stay one day OBJECTIVE: Vital Signs-as noted below Exam: General-alert and oriented not in distress. Morbidly obese Neck-no neck masses Lungs-cta b/l no wheezing or crackles Heart-s1 and s2 heard regular no murmurs Abdomen-soft bowel sounds present non tender no distension Extremities-no edema no erythema Neuro-alert and oriented moves extremities Lab data as noted below. ASSESSMENT & PLAN: This is a 76yo M with a PMH of DM II, diastolic HF, asthma, GILLES, obesity hypoventilation syndrome and other medical problems listed below who presents with continued urinary symptoms that began a week ago and was found to have a pseudomonas UTI. Complicated UTI: Was Started on keflex in ED 07/08 Urine culture grew pseudomonas -Sensitive to cefepime, intermediate to cipro, levaquin started on cefepime s/p picc line plan for home abx. Acute respiratory failure 2/2 asthma exacerbation: Became hypoxic in ED to 88% on room air Underlying history of asthma, obesity hypoventilation CXR unremarkable Was started on IV steroids, nebs, supplemental O2 -D dimer elevated to 2100 Lower extremity doppler negative echo no right heart strain pulmonary o board and appreciate inputs no wheezing today cutting back on iv steroids to po steroids stable will d/c on steroid taper Chronic diastolic CHF: Was Recently seen by Dr. Abraham in clinic Home dose lasix increased to 80mg BID 2/2 hypervolemic state to home dose lasix, metolazone, beta boyd Low Na diet stable will monitor DM II: Recent a1c of 7.0 in May 2017 Holding home dose lantus, sliding scale Glycemic consult in setting of IV steroids on Lantus and iss will monitor HLD: On statin GILLES: CPAP Depression, anxiety: On Effexor BPH: On tamsulosin, finasteride DVT Ppx: SQ heparin Code status: FULL per admission Dispo: pt/ot social service for d/c planning possible d/c in am with home health Vital Signs: Date Time Temp Pulse Resp B/P (MAP) Pulse Ox O2 Delivery O2 Flow Rate FiO2 07/15/17 16:38 36.7 72 20 151/89 (109) 94 Room Air 07/15/17 15:54 Room Air 07/15/17 15:16 75 16 92 Room Air 07/15/17 09:41 90 Room Air 07/15/17 09:00 Room Air 07/15/17 08:16 36.4 68 16 162/83 (109) 90 Room Air 07/15/17 07:15 65 16 99 Nasal Cannula 2.0 07/15/17 03:34 36.5 77 18 159/72 (101) 92 Nasal Cannula 2.0 07/15/17 00:16 96 Room Air 07/14/17 21:19 78 150/70 (96) 07/14/17 20:00 36.5 81 20 173/75 (107) 92 Room Air 07/14/17 19:46 80 16 96 Nasal Cannula 2.0 Lab Results: Results Past 24 Hours Test 07/14/17 20:38 07/15/17 06:03 07/15/17 08:24 07/15/17 12:02 Range/Units Bedside Glucose 223 113 146 70-99 mg/dl White Blood Count 9.32 4.8-10.8 K/uL Red Blood Count 4.89 4.7-6.1 M/uL Hemoglobin 10.3 14.0-18.0 g/dL Hematocrit 35.8 42-52 % Mean Corpuscular Volume 73.2 80-100 fL Mean Corpuscular Hemoglobin 21.1 25-34 pg Mean Corpuscular Hemoglobin Concent 28.8 32-36 g/dl RDW Standard Deviation 47.8 36.4-46.3 fL RDW Coefficient of Variation 17.9 11.5-14.5 % Platelet Count 278 130-400 K/uL Mean Platelet Volume 10.0 7.4-10.4 fL Creatinine 1.33 0.60-1.40 mg/dl Est Creatinine Clear Calc Drug Dose 61.8 ml/min Estimated GFR () 60.2 Estimated GFR (Non- 51.9 Magnesium Level 2.4 1.8-2.4 mg/dl Test 07/15/17 16:00 07/15/17 16:41 Range/Units Bedside Glucose 53 86 70-99 mg/dl
[2017-07-15] MEDS: SIMVASTATIN 40 MG TAB PO SCH (20:06)
[2017-07-15] MEDS: TAMSULOSIN HCL 0.4 MG CAP PO SCH (20:06)
[2017-07-15] MEDS: INSULIN GLARGINE SOLOSTAR 100 UNITS/ML 3 ML PEN SC SCH (21:15)
[2017-07-16] MEDS: HALOPERIDOL 1 MG TAB PO PRN (01:21)
[2017-07-16] MEDS: ACETAMINOPHEN 325 MG TAB PO PRN (01:22)
[2017-07-16 03:00] VITALS: BP 126/71; PULSE 78; TEMP 37; O2SAT 98
[2017-07-16] MEDS: CEFEPIME IV 2,000 MG in SYRINGE 7.5 ML IV SCH (06:36)
[2017-07-16] MEDS: HEPARIN SOD 5000 UNIT/0.5 ML CARP SQ SCH (06:39)
[2017-07-16 07:23] VITALS: PULSE 77; O2SAT 95
[2017-07-16] MEDS: ALBUT/IPRATROP 3MG/0.5MG NEB 3 ML VIAL INH SCH (07:23)
[2017-07-16] MEDS ORDERED: INSULIN GLARGINE SOLOSTAR 100 UNITS/ML 3 ML PEN SC SCH (08:00)
[2017-07-16] MEDS ORDERED: METOLAZONE 5 MG TAB PO SCH (08:30)
[2017-07-16] MEDS: ASPIRIN 81 MG ECTAB PO SCH (08:46)
[2017-07-16] MEDS: PANTOprazole SOD 40 MG TAB PO SCH (08:47)
[2017-07-16] MEDS: FINASTERIDE 5 MG TAB PO SCH (08:47)
[2017-07-16] MEDS: VENLAFAXINE HCL 37.5 MG TAB PO SCH (08:47)
[2017-07-16] MEDS: POTASSIUM CHLORIDE 20 MEQ TABCR PO SCH (08:47)
[2017-07-16] MEDS: ASCORBIC ACID 500 MG TAB PO SCH (08:47)
[2017-07-16] MEDS: METOPROLOL TARTRATE 25 MG TAB PO SCH (08:47)
[2017-07-16] MEDS: FUROSEMIDE 80 MG TAB PO SCH (08:48)
[2017-07-16] MEDS: MULTIVITAMIN TAB PO SCH (08:48)
[2017-07-16] MEDS: MAGNESIUM OXIDE 400 MG TAB PO SCH (08:48)
[2017-07-16] MEDS: CALCIUM 600MG + VIT D 400 IU TAB PO SCH (08:48)
[2017-07-16] MEDS: NYSTATIN/TRIAMCINOLONE CR 15 GM TUBE EXT SCH (08:50)
[2017-07-16] MEDS: INSULIN ASPART 100 UNITS/ML 3 ML PEN SC SCH (08:57)
[2017-07-16] MEDS: GABAPENTIN 250 MG/5 ML 470 ML BTL PO SCH (08:58)
[2017-07-16 09:53] VITALS: BP 126/71; PULSE 77; TEMP 37; O2SAT 95
[2017-07-16] MEDS ORDERED: CFP2IV IV (09:56)
[2017-07-16] MEDS ORDERED: PRED10TA PO (09:56)
[2017-07-16] MEDS ORDERED: LCTX PO (09:57)
--- NOTE | 2017-07-16 09:59 | Discharge Instructions ---
Discharge Instructions Date of Service Jul 16, 2017. Admission Reason for Admission: Acute Respiratory Failure, Pseudomonas Uti Discharge Discharge Diagnosis / Problem: ASTHMA EX, UTI WITH PSEUDOMONAS Discharge Goals Goal(s): Improve function Activity Recommendations Activity Limitations: resume your previous activity . Instructions / Follow-Up Instructions / Follow-Up FOLLOWUP WITH FAMILY DOCTOR ON July AT 1:45PM. Current Hospital Diet Patient's current hospital diet: Diabetes Type 2 Diet, Low Sodium Diet (2gm Na) Discharge Diet Recommended Diet: Low Sodium Diet (2gm Na), Diabetes Type 2 Diet Pending Studies Studies pending at discharge: no Laboratory Results Hemoglobin A1c Test 04/29/17 07:11 Range/Units Estimated Average Glucose 180 mg/dl Hemoglobin A1c 7.9 H 4.5-5.6 % Medical Emergencies . Who to Call and When: Medical Emergencies: If at any time you feel your situation is an emergency, please call 911 immediately. . Non-Emergent Contact Non-Emergency issues call your: Primary Care Provider . . "Provider Documentation" section prepared by Michael Alexander. .
--- NOTE | 2017-07-16 10:22 | Medical Consult ---
Consultation Date of Consultation: Jul 16, 2017. Attending Physician: Michael Alexander MD Reason for Consultation: Recurrent UTI, concerned History of Present Illness 76-year-old male with multiple medical comorbidities including diabetes mellitus , obstructive sleep apnea, hypoventilation syndrome, COPD, prior prolonged Osorio catheter use with recurrent urinary tract infection, who had his Osorio catheter ultimately removed during his prior admission. Was seen on July 08 in the emergency department for several days of dysuria and frequency with discolored urine, and was diagnosed with urinary tract infection and given cephalexin. Symptoms worsen, patient developed chills and some suprapubic pain , and cultures returned positive for a somewhat resistant Pseudomonas aeruginosa. Patient returned to the hospital July 12 and was started on IV cefepime. He has improved significantly with clearing of his urine, resolution of chills and abdominal pain, and resolution of dysuria and frequency. Has been tolerating his cefepime without apparent difficulty. Home antibiotics being arranged. PICC line has been placed. Patient has had no fever. Past Medical/Surgical History Medical Problems: (1) Acute urinary retention Status: Acute (2) Altered mental status Status: Acute (3) Altered mental status Status: Acute (4) Altered mental status Status: Acute (5) Anemia Status: Acute (6) Bronchitis Status: Acute (7) CHF (congestive heart failure) Status: Acute (8) CHF (congestive heart failure) Status: Acute (9) CO2 retention Status: Acute (10) Complication of catheter Status: Acute (11) Congestive heart failure Status: Acute (12) Dystonic drug reaction Status: Acute (13) Failure to thrive Status: Acute (14) Hypercarbia Status: Acute (15) Hypoglycemia Status: Acute (16) Hypoxemia Status: Acute (17) Hypoxemia Status: Acute (18) Hypoxia Status: Acute (19) Hypoxia Status: Acute (20) Malfunction of Osorio catheter Status: Acute (21) Pneumonia Status: Acute (22) Respiratory acidosis Status: Acute (23) Right flank pain Status: Acute (24) Sepsis Status: Acute (25) Symptoms involving urinary system Status: Acute (26) Urethral pain Status: Acute (27) Urinary retention Status: Acute (28) Urinary retention Status: Acute (29) Urinary tract infection Status: Acute (30) Urinary tract infection Status: Acute (31) Urinary tract infection Status: Acute (32) UTI (urinary tract infection) Status: Acute (33) UTI (urinary tract infection) Status: Acute (34) UTI (urinary tract infection) Status: Acute (35) UTI (urinary tract infection) Status: Acute (36) UTI (urinary tract infection) due to urinary indwelling catheter Status: Acute (37) Weakness Status: Acute Medical Problems: (1) Acute respiratory failure (2) Anxiety (3) Asthma, cough variant (4) Benign prostatic hyperplasia (5) Depression (6) Diabetes mellitus type 2 (7) Diabetic neuropathy (8) Diastolic heart failure (9) Dyslipidemia (10) Essential hypertension (11) Gastroesophageal reflux disease (12) Legal blindness (13) Morbid obesity (14) Nocturnal hypoxemia (15) Obesity hypoventilation syndrome (16) Peripheral venous insufficiency (17) Sleep apnea (18) UTI (urinary tract infection) Surgical Problems: (1) S/P cataract surgery (2) S/p eyelid surgery (3) S/P foot surgery, left (4) S/P panniculectomy (5) S/P tonsillectomy Family History Diabetes mellitus MOTHER BROTHER GRANDMOTHER FH: CAD (coronary artery disease) FATHER (CABG) FH: CHF (congestive heart failure) MOTHER BROTHER GI disorder Hypertension MOTHER Social History Smoking Status: Former Smoker Alcohol Use: none Marital Status: Occupation Status: retired Allergies Coded Allergies: Hydromorphone (Verified Adverse Reaction, Severe, DELIRIUM, UNRESPONSIVENESS, 07/12/17) UNRESPONSIVENESS Oxycodone (Verified Adverse Reaction, Unknown, Trouble coming off, 07/12/17) Repoted by , NOT ALLERGIC TO THEM Propoxyphene (Verified Adverse Reaction, Unknown, Trouble coming off of Darvocet., 07/12/17) Reported by Current Inpatient Medications Current Inpatient Medications Medications (Trade) Dose Ordered Sig/Bj Route Start Time Stop Time Status Last Admin Dose Admin Heparin Sodium (Porcine) (Heparin Sq 5000 Unit/0.5ml) 5,000 unit Q8 SQ 07/12/17 22:00 08/11/17 21:59 07/16/17 06:39 5,000 UNIT Acetaminophen (Tylenol Tab) 650 mg Q4H PRN PO 07/12/17 12:30 08/11/17 12:29 07/16/17 01:22 650 MG Al Hydrox/Mg Hydrox/Simethicone (Maalox Max Susp) 15 ml Q4H PRN PO 07/12/17 12:30 08/11/17 12:29 Polyethylene (Miralax Powder Packet) 17 gm DAILY PRN PO 07/12/17 12:30 08/11/17 12:29 Ondansetron HCl (Zofran Inj) 4 mg Q6H PRN IV 07/12/17 12:30 08/11/17 12:29 Cefepime HCl (Consult) 1 ea UD PRN N/A 07/12/17 14:13 08/11/17 14:12 Albuterol/ Ipratropium (Duoneb) 3 ml QIDR INH 07/12/17 16:00 08/11/17 15:59 07/16/17 07:23 3 ML Miscellaneous Information (Consult Glycemic Management Pharmacy) 1 ea UD N/A 07/12/17 13:28 08/11/17 13:27 Glucose (Glucose 40% Gel) 15-30 GRAMS 15 GRAMS... UD PRN PO 07/12/17 13:45 08/11/17 13:44 Glucose (Glucose Chew Tab) 4-8 Tablets 4 Tabl... UD PRN PO 07/12/17 13:45 08/11/17 13:44 Dextrose (Dextrose 50% 50ML Syringe) 25-50ML OF 50% DW IV FOR... UD PRN IV 07/12/17 13:45 08/11/17 13:44 Glucagon (Glucagon Inj) 1 mg UD PRN SQ 07/12/17 13:45 08/11/17 13:44 Insulin Glargine (Lantus Solostar Pen) 25 units HS SC 07/12/17 15:00 08/11/17 14:59 07/15/17 21:15 25 UNITS Ascorbic Acid (Vitamin C Tab) 500 mg DAILY PO 07/13/17 09:00 08/12/17 08:59 07/16/17 08:47 500 MG Aspirin (Ecotrin Tab) 81 mg DAILY PO 07/13/17 09:00 08/12/17 08:59 07/16/17 08:46 81 MG Finasteride (Proscar Tab) 5 mg QAM PO 07/13/17 09:00 08/12/17 08:59 07/16/17 08:47 5 MG Folic Acid (Folvite Tab) 1 mg DAILY PO 07/13/17 09:00 08/12/17 08:59 07/16/17 08:46 1 MG Gabapentin (Neurontin Cap) 300 mg BID PO 07/12/17 21:00 08/11/17 20:59 Future Hold Loperamide HCl (Imodium Cap) 2 mg BID PRN PO 07/12/17 14:30 08/11/17 14:29 Magnesium Oxide (Mag-Ox Tab) 400 mg DAILY PO 07/13/17 09:00 08/12/17 08:59 07/16/17 08:48 400 MG Phenazopyridine HCl (Pyridium Tab) 200 mg TID PRN PO 07/12/17 14:30 08/11/17 14:29 Potassium Chloride (Klor-Con Tab) 20 meq BIDM PO 07/12/17 16:45 08/11/17 17:59 07/16/17 08:47 20 MEQ Simvastatin (Zocor Tab) 40 mg QPM PO 07/12/17 21:00 08/11/17 20:59 07/15/17 20:06 40 MG Tamsulosin HCl (Flomax Cap) 0.4 mg HS PO 07/12/17 21:00 08/11/17 20:59 07/15/17 20:06 0.4 MG Calcium/Vitamin D (Caltrate Plus Tab) 1 tab DAILY PO 07/13/17 09:00 08/12/17 08:59 07/16/17 08:48 1 TAB Pantoprazole Sodium (Protonix Tab) 40 mg QAM PO 07/13/17 09:00 08/12/17 08:59 07/16/17 08:47 40 MG Metoprolol Tartrate (Lopressor Tab) 12.5 mg BID PO 07/12/17 21:00 08/11/17 20:59 07/16/17 08:47 12.5 MG Venlafaxine HCl (effeXOR TAB) 75 mg BID PO 07/12/17 21:00 08/11/17 20:59 07/16/17 08:47 75 MG Cefepime HCl 2000 mg/Syringe 20 ml @ 5 mls/min Q12H IV 07/12/17 18:00 07/22/17 17:59 07/16/17 06:36 5 MLS/MIN Furosemide (Lasix Tab) 80 mg BID PO 07/12/17 21:00 08/11/17 20:59 07/16/17 08:48 80 MG Metolazone (Zaroxolyn Tab) 5 mg TuTh@0830,2030 PO 07/16/17 08:30 08/15/17 08:29 07/16/17 08:47 5 MG Multivitamins (Multivitamin Tab) 1 tab DAILY PO 07/13/17 09:00 08/12/17 08:59 07/16/17 08:48 1 TAB Nystatin/ Triamcinolone Acetonide (Mycogen II Crm) 1 appln BID EXT 07/12/17 21:00 08/11/17 20:59 07/16/17 08:50 1 APPLN Haloperidol (Haldol Tab) 2 mg Q4H PRN PO 07/13/17 00:00 08/12/17 00:00 07/16/17 01:21 2 MG Miconazole Nitrate (Desenex Powder) 1 appln DAILY PRN EXT 07/13/17 19:00 08/12/17 18:59 Gabapentin (Neurontin) 300 mg BID PO 07/14/17 08:00 08/13/17 07:59 07/16/17 08:58 300 MG Prednisone (PredniSONE TAB) 40 mg DAILY PO 07/15/17 08:00 08/14/17 07:59 07/16/17 08:47 40 MG Insulin Aspart (novoLOG ASPART) SLIDING SCALE ACHS SC 07/15/17 11:00 08/14/17 10:59 07/16/17 08:57 8 UNITS Insulin Glargine (Lantus Solostar Pen) 10 units QAM SC 07/16/17 08:00 08/15/17 07:59 07/16/17 08:57 10 UNITS Review of Systems All systems were reviewed and are negative except as per HPI Physical Exam Date Time Temp Pulse Resp B/P (MAP) Pulse Ox O2 Delivery O2 Flow Rate FiO2 07/16/17 09:53 37.0 77 16 95 Room Air 07/16/17 08:00 Room Air 07/16/17 07:23 77 16 95 Room Air 07/16/17 03:00 37.0 78 20 126/71 (89) 98 Room Air 07/16/17 00:50 Room Air 07/15/17 23:06 37.0 79 18 167/84 (111) 92 Room Air 07/15/17 20:47 36.7 84 18 177/98 (124) 91 Room Air 07/15/17 20:46 36.7 84 20 170/84 (112) 94 Room Air 2.0 68 07/15/17 20:10 84 170/84 (112) 07/15/17 20:00 Room Air 07/15/17 16:38 36.7 72 20 151/89 (109) 94 Room Air 07/15/17 15:54 Room Air 07/15/17 15:16 75 16 92 Room Air General Appearance: WD/WN, no apparent distress, + obese Head: normocephalic, atraumatic Eyes: normal inspection, EOMI, sclerae normal ENT: normal ENT inspection, hearing grossly normal, pharynx normal Neck: supple, no adenopathy, thyroid normal, trachea midline Respiratory/Chest: chest non-tender, lungs clear, normal breath sounds, no respiratory distress Cardiovascular: regular rate, rhythm, no gallop, no murmur Abdomen/GI: normal bowel sounds, non tender, soft, no organomegaly Back: normal inspection, no CVA tenderness Extremities/Musculoskelatal: no calf tenderness, normal capillary refill, non- tender Neurologic/Psych: alert, normal mood/affect, oriented x 3 Skin: normal color, warm/dry, no rash Lymphatic: no adenopathy Laboratory Results --- RUN DATE: 07/14/17 [facility] LAB PAGE 1 RUN TIME: 1053 Specimen Inquiry PATIENT: JAKE LEWIS LOC: [facility] U # : [id number] AGE/SX: 76/M ROOM: 10 REG : 07/12/[address]: Michael Alexander MD : 1940 BED: 1 DIS : STATUS: ADM IN TLOC: SPEC #: [id number] JENNIFER: 07/12/17 STATUS: COMP REQ #: [id number] RECD: 07/12/[address] [facility] [address]: Sixto Ames MD SOURCE: ERICA, CC ENTR: 07/12/[address]: Syed Valdivia D.OMalcolm SPDESC: ORDERED: CULTURE URCLEAN Procedure Result Verified Site URINE CULTURE Final 07/14/17 Organism 1 PSEUDOMONAS AERUGINOSA COLONY COUNT >100,000 CFU/ml SENS SENSITIVITY TO FOLLOW Organism 2 PSEUDOMONAS AERUGINOSA#2 COLONY COUNT 70,000 CFU/ml SENS SENSITIVITY TO FOLLOW PSEUD AERG PSEUD AERG#2 M.I.C. RX M.I.C. RX --------- ------ --------- ------ CEFTAZIDIME 8 S 4 S CEFEPIME 8 S <=4 S IMIPENEM >8 R >8 R AZTREONAM >16 R <=4 S GENTAMICIN <=4 S <=4 S TOBRAMYCIN <=4 S <=4 S AMIKACIN 32 I <=16 S CIPROFLOXACIN 2 I <=1 S LEVOFLOXACIN 4 I <=2 S PIP/TAZO 64 S <=16 S 1. PSEUDOMONAS AERUGINOSA Target Route Dose RX AB Cost M.I.C. IQ ------ ----- ------ -- ------ -------- - ------ CEFTAZIDIME S 8 CEFEPIME S 8 IMIPENEM R >8 AZTREONAM R >16 GENTAMICIN S <=4 TOBRAMYCIN S <=4 AMIKACIN I 32 CIPROFLOXACIN I 2 LEVOFLOXACIN I 4 PIP/TAZO S 64 2. PSEUDOMONAS AERUGINOSA#2 Target Route Dose RX AB Cost M.I.C. IQ ------ ----- ------ -- ------ -------- - ------ CEFTAZIDIME S 4 CEFEPIME S <=4 IMIPENEM R >8 CONTINUED ON NEXT PAGE RUN DATE: 07/14/17 [facility] LAB PAGE 2 RUN TIME: 1053 Specimen Inquiry SPEC: [id number] PATIENT: JAKE LEWIS [id number] ( Continued) Procedure Result Verified Site URINE CULTURE Final (continued) 07/14/17-105 2. PSEUDOMONAS AERUGINOSA#2 (continued) Target Route Dose RX AB Cost M.I.C. IQ ------ ----- ------ -- ------ -------- - ------ AZTREONAM S <=4 GENTAMICIN S <=4 TOBRAMYCIN S <=4 AMIKACIN S <=16 CIPROFLOXACIN S <=1 LEVOFLOXACIN S <=2 PIP/TAZO S <=16 S = SENSITIVE I = INTERMEDIATE R = RESISTANT END OF REPORT Last 24 Hours Test 07/15/17 12:02 07/15/17 16:00 07/15/17 16:41 07/15/17 20:28 Bedside Glucose 146 mg/dl 53 mg/dl 86 mg/dl 220 mg/dl Test 07/16/17 05:53 07/16/17 07:43 Magnesium Level 2.4 mg/dl Bedside Glucose 124 mg/dl Patient Name: JAKE LEWIS Unit Number: [id number] Dictated: 07/12/171252 Transcribed: 07/12/171252 JA Printed Date/Time: [~ rep prt dt]/[~ rep prt tm] [~ rep ct labl] - [~ rep ct ivnm] [facility] Radiology [place] [address] Dictated: 07/12/171252 Transcribed: 07/12/171252 JA Printed Date/Time: [~ rep prt dt]/[~ rep prt tm] [~ rep ct labl] - [~ rep ct ivnm] CHEST ONE VIEW PORTABLE CLINICAL HISTORY: Shortness of breath. COMPARISON STUDY: Chest radiograph June 03, 2017. FINDINGS: Lung volumes are diminished. This is unchanged. There is no pneumothorax. No pleural effusion is visualized. A suspected anterior right shoulder dislocation is again noted. Moderate cardiomegaly is unchanged. Mediastinal widening is unchanged. There is no evidence for pulmonary edema. IMPRESSION: No change in appearance of the chest. Moderate cardiomegaly without radiographic evidence of pulmonary edema. Electronically signed by: Vlad Everett M.D. 07/12/2017 12:54 PM Dictated Date/Time: 07/12/2017 12:53 PM The status of this report is Signed. Draft = Not yet reviewed or approved by Radiologist. Signed = Reviewed and approved by Radiologist. <AttendingPhy></AttendingPhy> <FamilyPhy>Syed Valdivia D.Komal.</FamilyPhy> < PrimaryPhy>Syed Valdivia D.O.</PrimaryPhy> <UnitNumber>[id number]</ UnitNumber> <VisitNumber>[id number]</VisitNumber> <PatientName>JAKE LEWIS</ PatientName> <DateOfBirth>1940</DateOfBirth> <Location>C.EDB</Location> < ServiceDate>07/12/17</ServiceDate> <MNE>ESINDI</MNE> <OrderingPhy>Christal Robles P.A.-C.</OrderingPhy> <OrderingPhyMNE>f rep ord dr bustos</OrderingPhyMNE> < DictatingPhyMNE>f rep dict dr bustos</DictatingPhyMNE> <CCListMNE>f rep ct mne</ CCListMNE> <AdmittingPhyMNE>f pt admit dr bustos</AdmittingPhyMNE> <AttendingPhyMNE >f pt attend dr bustos</AttendingPhyMNE> <ConsultingPhyMNE>f pt consult dr bustos</ConsultingPhyMNE> <FamilyPhyMNE>f pt fam dr bustos</FamilyPhyMNE> <OtherPhyMNE>f pt other dr bustos</OtherPhyMNE> < PrimaryPhyMNE>f pt prim care dr bustos</PrimaryPhyMNE> <ReferringPhyMNE>f pt referring dr bustos</ReferringPhyMNE> Assessment & Plan Recurrent urinary tract infection with Pseudomonas aeruginosa in the setting of prior prolonged Osorio catheterization. Patient is responding appropriately to IV cefepime, would continue for 10 days total. Will discuss with all involved.
--- NOTE | 2017-07-16 11:32 | Progress Note ---
Internal Med Progress Note Date of Service: Jul 16, 2017. Provider Documentation: SUBJECTIVE: resting comfortably ready for discharge moved bowels denies sob or cough no chest pain afebrile OBJECTIVE: Vital Signs-as noted below Exam: General-alert and oriented not in distress. Morbidly obese Neck-no neck masses Lungs-cta b/l no wheezing or crackles Heart-s1 and s2 heard regular no murmurs Abdomen-soft bowel sounds present non tender no distension Extremities-no edema no erythema Neuro-alert and oriented moves extremities Lab data as noted below. ASSESSMENT & PLAN: This is a 76yo M with a PMH of DM II, diastolic HF, asthma, GILLES, obesity hypoventilation syndrome and other medical problems listed below who presents with continued urinary symptoms that began a week ago and was found to have a pseudomonas UTI. Complicated UTI: Was Started on keflex in ED 07/08 Urine culture grew pseudomonas -Sensitive to cefepime, intermediate to cipro, levaquin started on cefepime#5 s/p picc line plan for home abx for 10 days. Acute respiratory failure 2/2 asthma exacerbation: Became hypoxic in ED to 88% on room air Underlying history of asthma, obesity hypoventilation CXR unremarkable Was started on IV steroids, nebs, supplemental O2 -D dimer elevated to 2100 Lower extremity doppler negative echo no right heart strain pulmonary on board and appreciate inputs no wheezing today cutting back on iv steroids to po steroids stable will d/c on steroid taper f/u with pcp Chronic diastolic CHF: Was Recently seen by Dr. Abraham in clinic Home dose Lasix increased to 80mg BID 2/2 hypervolemic state to home dose Lasix, metolazone, beta boyd Low Na diet stable will monitor DM II: Recent a1c of 7.0 in May 2017 Holding home dose lantus, sliding scale Glycemic consult in setting of IV steroids on Lantus and iss d/c on home meds HLD: On statin GILLES: CPAP Depression, anxiety: On Effexor BPH: On tamsulosin, finasteride discharged home with home health Vital Signs: Date Time Temp Pulse Resp B/P (MAP) Pulse Ox O2 Delivery O2 Flow Rate FiO2 07/16/17 09:53 37.0 77 16 95 Room Air 07/16/17 08:00 Room Air 07/16/17 07:23 77 16 95 Room Air 07/16/17 03:00 37.0 78 20 126/71 (89) 98 Room Air 07/16/17 00:50 Room Air 07/15/17 23:06 37.0 79 18 167/84 (111) 92 Room Air 07/15/17 20:47 36.7 84 18 177/98 (124) 91 Room Air 07/15/17 20:46 36.7 84 20 170/84 (112) 94 Room Air 2.0 68 07/15/17 20:10 84 170/84 (112) 07/15/17 20:00 Room Air 07/15/17 16:38 36.7 72 20 151/89 (109) 94 Room Air 07/15/17 15:54 Room Air 07/15/17 15:16 75 16 92 Room Air Lab Results: Results Past 24 Hours Test 07/15/17 12:02 07/15/17 16:00 07/15/17 16:41 07/15/17 20:28 Range/Units Bedside Glucose 146 53 86 220 70-99 mg/dl Test 07/16/17 05:53 07/16/17 07:43 Range/Units Magnesium Level 2.4 1.8-2.4 mg/dl Bedside Glucose 124 70-99 mg/dl
--- NOTE | 2017-07-16 11:34 | Discharge Summary ---
Discharge Summary Date of Service Jul 16, 2017. Discharge Summary Admission Date: Jul 12, 2017 at 14:21 Discharge Date: Jul 16, 2017 Discharge Disposition: Home with services Principal Diagnosis: asthma ex UTI with fluoroquinolone resistant pseudomonas Secondary Diagnoses/Problems: (1) Anxiety Status: Chronic (2) Asthma, cough variant Status: Chronic (3) Benign prostatic hyperplasia Status: Chronic (4) Depression Status: Chronic (5) Diabetes mellitus type 2 Status: Chronic (6) Diabetic neuropathy Status: Chronic (7) Diastolic heart failure Status: Chronic (8) Dyslipidemia Status: Chronic (9) Essential hypertension Status: Chronic (10) Gastroesophageal reflux disease Status: Chronic (11) Legal blindness Status: Chronic (12) Morbid obesity Permanent Comment: BMI > 40 Status: Chronic (13) Nocturnal hypoxemia Status: Chronic (14) Obesity hypoventilation syndrome Status: Chronic (15) Peripheral venous insufficiency Status: Chronic (16) Sleep apnea Permanent Comment: noncompliant with CPAP Status: Chronic Procedures: CXR: No change in appearance of the chest. Moderate cardiomegaly without radiographic evidence of pulmonary edema. VENOUS DOPPLER: No evidence of deep venous thrombosis. Consultations: PULMONARY Medication Reconciliation New Medications: Cefepime HCl (Cefepime) 2 Gm Inj 2 GM IV BID for 7 Days Lactobacillus Acidophilus (Lactinex) Tab 2 TAB PO BID for 10 Days, TAB Prednisone Tab (Prednisone) 10 Mg Tab 30 MG PO UD, #12 TAB PREDNISONE 30MG PO DAILY X 2 DAYS THEN PREDNISONE 20MG PO DAILY X 2 DAYS THEN PREDNISONE 10MG PO DAILY X 2 DAYS THEN STOP Continued Medications: Acetaminophen (Tylenol) 325 Mg Tab 325 MG PO Q6 PRN for Pain, TAB Ascorbic Acid (Vitamin C) 500 Mg Tab 1 TAB PO DAILY Aspirin (Aspirin Ec) 81 Mg Tab 81 MG PO DAILY Calcium Citrate-Vitamin D (Calcium Citrate + D3 Max 315-250 mg-Unit) 1 Tab Tab 1 TAB PO DAILY Finasteride (Proscar) 5 Mg Tab 5 MG PO QAM, 0 Refills Folic Acid (Folvite) 1 Mg Tab 1 MG PO DAILY, TAB Furosemide (Lasix) 80 Mg Tab 80 MG PO BID, TAB Gabapentin (Gabapentin) 300 Mg Cap 300 MG PO BID for 15 Days, #30 CAP 0 Refills Insulin Aspart (Novolog Flexpen) 100 Units/Ml Inj 10 UNITS SQ TIDM PLUS SLIDING SCALE Insulin Glargine (Lantus Solostar) 100 Unit/Ml Inj 25 UNITS SQ QPM, PEN Loperamide Hcl (Imodium) 2 Mg Cap 2 MG PO BID PRN for Diarrhea for 7 Days, #14 CAP Magnesium Oxide (Mag-Ox) 400 Mg Tab 400 MG PO DAILY for 7 Days, #7 TAB Metolazone (Zaroxolyn) 5 Mg Tab 5 MG PO 2XWK 1/2 hour prior to AM dose of Furosemide. PATIENT TAKES TUES AND THURS Metoprolol Tartrate (Lopressor) (Lopressor) 25 Mg Tab 12.5 MG PO BID, TAB Multivitamin (Multivitamin) Tab 1 TAB PO DAILY, TAB Nystatin-Triamcinolone (Nystatin/Triamcinolone) 1 Cre Cre 1 APPLN TOP BID, #15 GM 1 Refill Apply to groin and perineal area twice daily. Omeprazole (Prilosec) 20 Mg Capcr 20 MG PO QAM Phenazopyridine HCl (Pyridium) 200 Mg Tab 200 MG PO TID PRN for Frequency/Burning w/Urination, #6 TAB Potassium Ext Rel (Klor-Con) 20 Meq Tabcr 20 MEQ PO BID Simvastatin (Zocor) 80 Mg Tab 40 MG PO QPM, TAB Tamsulosin HCl (Tamsulosin HCl) 0.4 Mg Cap 1 CAP PO HS Venlafaxine Hcl (Effexor) 75 Mg Tab 75 MG PO BID Admission Information HPI (per Admitting provider): this is a 76yo M with a PMH of DM II, diastolic HF, asthma, GILLES, obesity hypoventilation syndrome and other medical problems listed below who presents with continued urinary symptoms that began a week ago. Patient was seen in the ED on 07/08 and was found to have a UTI. Was discharged home on Keflex. Urine cultures have since grown pseudomonas which is sensitive to cefepime, intermediate to Cipro and resistant to imipenem. Patient was instructed to come back to ED for IV antibiotic treatment. Still experiencing dysuria, burning and intermittent chills. No fever, suprapubic pain or flank pain. Is incontinent and wears briefs at home. Is wheelchair bound and manages medications. Patient also complaining of SOB, which has worsened since arrival. Endorses wheezing and SOB at rest. Denies any recent URI symptoms. Does not smoke. Sees Dr. Abraham for CHF management and had lasix dose increased to 80mg BID at last week's clinic appointment. Denies any recent weight gain, dietary changes or increased LE swelling. Denies headache, confusion, chest pain, palpitations, nausea, vomiting, abdominal pain, diarrhea, constipation or weakness of extremities. Has a pressure ulcer on the back of his L thigh for which he used to see wound care. Physical Exam (per Admitting): General Appearance: + mild distress, + pertinent finding (Morbidly obese, tachypneic ) Head: normocephalic, atraumatic Eyes: normal inspection (legally blind ), PERRL, sclerae normal ENT: normal ENT inspection, hearing grossly normal, pharynx normal Neck: supple, thyroid normal, no JVD, trachea midline Respiratory/Chest: chest non-tender, + respiratory distress, + wheezing ( inspiratory and expiratory wheezes ) Cardiovascular: regular rate, rhythm, no murmur, normal peripheral pulses, + pertinent finding (2+ bilateral pitting edema to knees. Chronic erythema 2/2 venous stasis ) Abdomen/GI: non tender, soft, no organomegaly Back: normal inspection Extremities/Musculoskelatal: normal inspection, no calf tenderness Neurologic/Psych: no motor/sensory deficits, alert, normal mood/affect, oriented x 3 Skin: warm/dry, + pertinent finding (Pressure ulcer on L posterior thigh ) Hospital Course This is a 76yo M with a PMH of DM II, diastolic HF, asthma, GILLES, obesity hypoventilation syndrome and other medical problems listed below who presents with continued urinary symptoms that began a week ago and was found to have a pseudomonas UTI. Complicated UTI: Was Started on keflex in ED 07/08 Urine culture grew pseudomonas -Sensitive to cefepime, intermediate to cipro, levaquin started on cefepime#5 s/p picc line plan for home abx for 10 days. Acute respiratory failure 2/2 asthma exacerbation: Became hypoxic in ED to 88% on room air Underlying history of asthma, obesity hypoventilation CXR unremarkable Was started on IV steroids, nebs, supplemental O2 -D dimer elevated to 2100 Lower extremity doppler negative echo no right heart strain pulmonary on board and appreciate inputs no wheezing today cutting back on iv steroids to po steroids stable will d/c on steroid taper f/u with pcp Chronic diastolic CHF: Was Recently seen by Dr. Abraham in clinic Home dose Lasix increased to 80mg BID 2/2 hypervolemic state to home dose Lasix, metolazone, beta boyd Low Na diet stable will monitor DM II: Recent a1c of 7.0 in May 2017 Holding home dose lantus, sliding scale Glycemic consult in setting of IV steroids on Lantus and iss d/c on home meds HLD: On statin GILLES: CPAP Depression, anxiety: On Effexor BPH: On tamsulosin, finasteride discharged home with home health Total time spent on discharge = 35MINUTES This includes examination of the patient, discharge planning, medication reconciliation, and communication with other providers. Discharge Instructions Discharge Instructions Date of Service Jul 16, 2017. Admission Reason for Admission: Acute Respiratory Failure, Pseudomonas Uti Discharge Discharge Diagnosis / Problem: ASTHMA EX, UTI WITH PSEUDOMONAS Discharge Goals Goal(s): Improve function Activity Recommendations Activity Limitations: resume your previous activity . Instructions / Follow-Up Instructions / Follow-Up FOLLOWUP WITH FAMILY DOCTOR ON July AT 1:45PM. Current Hospital Diet Patient's current hospital diet: Diabetes Type 2 Diet, Low Sodium Diet (2gm Na) Discharge Diet Recommended Diet: Low Sodium Diet (2gm Na), Diabetes Type 2 Diet Pending Studies Studies pending at discharge: no Laboratory Results Hemoglobin A1c Test 04/29/17 07:11 Range/Units Estimated Average Glucose 180 mg/dl Hemoglobin A1c 7.9 H 4.5-5.6 % Medical Emergencies . Who to Call and When: Medical Emergencies: If at any time you feel your situation is an emergency, please call 911 immediately. . Non-Emergent Contact Non-Emergency issues call your: Primary Care Provider . . "Provider Documentation" section prepared by Michael Alexander.
--- NOTE | 2017-07-18 16:43 | EDITING REQUIRED CODING QUERY ---
CODING QUERY To promote full compliance with coding requirements relating to patient care, provider participation is requested in all cases of entry level business analyst uncertainty. Please assist us with the question(s) below: Coding Question(s): In the medical consultation report, Dr. 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 As attending physician, please clarify if you agree that the UTI was: ( ) A complication of prolonged Osorio catheterization ( ) Not a complication of prolonged Osorio catheterization ( ) Other, please explain ( ) Unable to determine (will be coded as a complication) Physician's Response(s): Thank you for your time, MAYRA Nieto, PROFESSIONAL DRIVER
== END 2017-07-16 10:40 | disposition home health service (06) | DRG 698 ==
LOC: C.EDB 09:49 → EDBEDREQ 12:49 → C.2T 14:21 → CANBEDREQ 14:21 → EDBEDREQ 14:31 → ENRESERV 14:34 → EDBEDREQ 07-13 10:38 → ENRESERV 07-13 10:48 → C.4E 07-13 11:44
PROVIDERS: ADMIT Hospitalist; ATTEND Internal Medicine
PROC: 02HV33Z Insertion of Infusion Device into Superior Vena Cava, Percutaneous Approach (ICD-10-PCS; principal; 2017-07-15)
DX: T83.518A Infection and inflammatory reaction due to other urinary catheter, initial encounter (principal); J96.21 Acute and chronic respiratory failure with hypoxia; G93.41 Metabolic encephalopathy; N39.0 Urinary tract infection, site not specified; J45.901 Unspecified asthma with (acute) exacerbation; I50.32 Chronic diastolic (congestive) heart failure; E66.2 Morbid (severe) obesity with alveolar hypoventilation; Z68.41 Body mass index [BMI] 40.0-44.9, adult; Y73.2 Prosthetic and other implants, materials and accessory gastroenterology and urology devices associated with adverse incidents; J45.991 Cough variant asthma; L89.899 Pressure ulcer of other site, unspecified stage; B96.5 Pseudomonas (aeruginosa) (mallei) (pseudomallei) as the cause of diseases classified elsewhere; Z16.23 Resistance to quinolones and fluoroquinolones; Z91.19 Patient's noncompliance with other medical treatment and regimen; R79.1 Abnormal coagulation profile; D64.9 Anemia, unspecified; E11.22 Type 2 diabetes mellitus with diabetic chronic kidney disease; N18.3 Chronic kidney disease, stage 3 (moderate); E11.40 Type 2 diabetes mellitus with diabetic neuropathy, unspecified; K21.9 Gastro-esophageal reflux disease without esophagitis; E78.5 Hyperlipidemia, unspecified; N40.1 Benign prostatic hyperplasia with lower urinary tract symptoms; R32 Unspecified urinary incontinence; H54.8 Legal blindness, as defined in USA; F32.9 Major depressive disorder, single episode, unspecified; F41.9 Anxiety disorder, unspecified; Z53.29 Procedure and treatment not carried out because of patient's decision for other reasons; Z99.3 Dependence on wheelchair; Z87.891 Personal history of nicotine dependence; Z79.82 Long term (current) use of aspirin; Z79.4 Long term (current) use of insulin; Z79.899 Other long term (current) drug therapy; Z88.5 Allergy status to narcotic agent

== ENCOUNTER → 2017-07-24 | Outpatient (CLI) | payer OTHER ==
[~2017-07-24] MED LIST changes: -ACET-1256 PO; +ACET-1311 PO; +ASCO500T3 PO; +CALC-602 PO; -CEPH-571 PO; +CFP2IV IV; +FRS/80 PO; +LCTX PO; -LSX40 PO; -MODA1TAB5 PO; +PRED10TA PO
[2017-07-24 12:03] LABS: ALBUMIN 2.9 gm/dl (3.4-5.0); ALT/SGPT 15 U/L (12-78); BLOOD UREA NITROGEN 46 mg/dl (7-18); CALCIUM 8.7 mg/dl (8.5-10.1); CARBON DIOXIDE 30 mmol/L (21-32); CREATININE 1.51 mg/dl (0.60-1.40); GLUCOSE 342 mg/dl (70-99); POTASSIUM 4.9 mmol/L (3.5-5.1); SODIUM 129 mmol/L (136-145)
[2017-07-24 12:05] LABS: AST/SGOT 11 U/L (15-37); TOTAL PROTEIN 7.1 gm/dl (6.4-8.2)
[2017-07-24 12:13] LABS: ALKALINE PHOSPHATASE 96 U/L (45-117)
[2017-07-24 12:49] LABS: HEMATOCRIT 37.1 % (42-52); HEMOGLOBIN 10.7 g/dL (14.0-18.0); MEAN CELL VOLUME 71.5 fL (80-100); MEAN CORPUSCULAR HEMOGLOBIN 20.6 pg (25-34); MEAN CORPUSCULAR HGB CONC 28.8 g/dl (32-36); MEAN PLATELET VOLUME 10.9 fL (7.4-10.4); PLATELET COUNT 237 K/uL (130-400); RED CELL DISTRIBUTION WIDTH CV 17.3 % (11.5-14.5); RED CELL DISTRIBUTION WIDTH SD 45.5 fL (36.4-46.3); WHITE BLOOD COUNT 11.11 K/uL (4.8-10.8)
== END | disposition home or self-care (01) ==
LOC: C.LABSPEC 11:02
PROVIDERS: ATTEND Internal Medicine Infectious Disease
DX: Z79.899 Other long term (current) drug therapy (principal)

== ENCOUNTER 2017-08-01 04:50 | Inpatient (IN) | payer OTHER ==
[~2017-08-01] VITALS: Ht 177.8 cm; Wt 117.2 kg
[~2017-08-01 04:50] MED LIST changes: -LCTX PO
--- NOTE | 2017-08-01 05:32 | EMERGENCY ROOM VISIT NOTE ---
History Report prepared by Tr: Jean Carlos Ortega Under the Supervision of: Dr. Lay Brooks D.O. First contact with patient: 05:01 Chief Complaint: UNABLE TO VOID Stated Complaint: URINE SYMPTOMS/UNABLE TO VOID History of Present Illness The patient is a 76 year old male who presents to the Emergency Room with complaints of the constant inability to void beginning last evening. The patient states he is experiencing intermittent, lower abdominal pain that lasts 20 mins and is a 10/10 in severity. He reports his discomfort is alleviated when he releases gas. The patient notes he typically has a bowel movement daily , and he did not have one yesterday. He states he has a history of a catheter and had it removed when he left the hospital recently. The patient denies blood in his urine, fevers, chills, nausea, vomiting, or a history of prostate issues. The patient does describe some increasing shortness of breath and a cough. Source of History: patient Onset: last evening Quality: other (inability to void) Timing: constant Associated Symptoms: + abdominal pain, No fevers, No chills, No cough, No SOB, No nausea, No vomiting Note: Denies: blood in urine Review of Systems See HPI for pertinent positives & negatives. A total of 10 systems reviewed and were otherwise negative. Past Medical & Surgical Medical Problems: (1) Acute on chronic diastolic heart failure (2) Acute respiratory failure (3) Anxiety (4) Asthma, cough variant (5) Benign prostatic hyperplasia (6) Depression (7) Diabetes mellitus type 2 (8) Diabetic neuropathy (9) Diastolic heart failure (10) Dyslipidemia (11) Essential hypertension (12) Gastroesophageal reflux disease (13) Legal blindness (14) Morbid obesity (15) Nocturnal hypoxemia (16) Obesity hypoventilation syndrome (17) Peripheral venous insufficiency (18) Sleep apnea (19) UTI (urinary tract infection) Surgical Problems: (1) S/P cataract surgery (2) S/p eyelid surgery (3) S/P foot surgery, left (4) S/P panniculectomy (5) S/P tonsillectomy Family History Diabetes mellitus MOTHER BROTHER GRANDMOTHER FH: CAD (coronary artery disease) FATHER (CABG) FH: CHF (congestive heart failure) MOTHER BROTHER GI disorder Hypertension MOTHER Social History Smoking Status: Former Smoker Marital Status: Occupation Status: retired Current/Historical Medications Scheduled Ascorbic Acid (Vitamin C), 1 TAB PO DAILY Aspirin (Aspirin Ec), 81 MG PO DAILY Calcium Citrate-Vitamin D (Calcium Citrate + D3 Max 315-250 mg-Unit), 1 TAB PO DAILY Cefepime HCl (Cefepime), 2 GM IV BID Finasteride (Proscar), 5 MG PO QAM Folic Acid (Folvite), 1 MG PO DAILY Furosemide (Lasix), 80 MG PO BID Gabapentin (Gabapentin), 300 MG PO BID Insulin Aspart (Novolog Flexpen), 10 UNITS SQ TIDM Insulin Glargine (Lantus Solostar), 25 UNITS SQ QPM Magnesium Oxide (Mag-Ox), 400 MG PO DAILY Metolazone (Zaroxolyn), 5 MG PO 2XWK Metoprolol Tartrate (Lopressor) (Lopressor), 12.5 MG PO BID Multivitamin (Multivitamin), 1 TAB PO DAILY Nystatin-Triamcinolone (Nystatin/Triamcinolone), 1 APPLN TOP BID Omeprazole (Prilosec), 20 MG PO QAM Potassium Ext Rel (Klor-Con), 20 MEQ PO BID Simvastatin (Zocor), 40 MG PO QPM Tamsulosin HCl (Tamsulosin HCl), 1 CAP PO HS Venlafaxine Hcl (Effexor), 75 MG PO BID Scheduled PRN Acetaminophen (Tylenol), 325 MG PO Q6 PRN for Pain Loperamide Hcl (Imodium), 2 MG PO BID PRN for Diarrhea Allergies Coded Allergies: Hydromorphone (Verified Adverse Reaction, Severe, DELIRIUM, UNRESPONSIVENESS, 08/01/17) UNRESPONSIVENESS Oxycodone (Verified Adverse Reaction, Unknown, Trouble coming off, 08/01/17 ) Repoted by , NOT ALLERGIC TO THEM Propoxyphene (Verified Adverse Reaction, Unknown, Trouble coming off of Darvocet., 08/01/17) Reported by Physical Exam Vital Signs Date Time Temp Pulse Resp B/P (MAP) Pulse Ox O2 Delivery O2 Flow Rate FiO2 08/01/17 08:18 37.5 93 16 121/62 93 Nasal Cannula 2.0 08/01/17 06:54 93 Nasal Cannula 2.0 08/01/17 06:52 83 20 129/89 89 Room Air 08/01/17 05:00 36.7 83 20 131/64 94 Room Air Physical Exam General: Morbidly obese and appears uncomfortable. HEENT: Head - normocephalic and atraumatic Pupils are equal, round, and reactive to light. Extraocular eye muscles are intact, and sclera are anicteric. Nose - moist nasal mucosa without discharge. Mouth - moist buccal mucosa. Oropharynx is nonerythematous and there is no tonsillar exudate or edema noted. Neck: Supple; no JVD, nuchal rigidity, cervical lymphadenopathy. Heart: Regular rate and rhythm. There is a normal S1 and S2 with no murmurs, clicks, or gallops appreciated. Heart tones are distant secondary to body habitus. Lungs: Diminished breath sounds bilaterally with no wheezes, rales, or rhonchi. Abdomen: Soft, completely nontender, nondistended, with good bowel sounds. There are no palpable pulsatile masses or hepatosplenomegaly. There is no guarding, rigidity, or rebound noted. Extremities: No evidence of cyanosis, clubbing, or edema. There are easily palpable peripheral pulses. PICC line in right arm. Skin: Moderate skin break down on posterior scrotum and buttocks bilaterally. Medical Decision & Procedures ER Provider Diagnostic Interpretation: X-ray results as stated below per interpretation by me and the radiologist: CHEST ONE VIEW PORTABLE CLINICAL HISTORY: 76 years-old Male presenting with cough. TECHNIQUE: Portable upright AP view of the chest was obtained. COMPARISON: 07/12/2017. FINDINGS: The patient is AGGARWAL rotated. Interval placement of a right upper extremity PICC, which terminates at the superior cavoatrial junction. Atherosclerosis of aortic arch. Cardiac silhouette moderately enlarged, unchanged. Interval increase in pulmonary vascular prominence. Increased bronchial wall thickening and right greater than left perihilar/central predominant opacities. No large pleural effusion or pneumothorax. A prominent pericardial fat pad and patient rotation likely accounts for obscuration of the left ventricular apex. Degenerative changes of the thoracic spine. Upper abdomen normal. IMPRESSION: 1. Interval placement of a right upper extremity PICC, which is appropriately positioned. No pneumothorax. 2. Moderate cardiomegaly with evidence of volume overload and possible developing pulmonary edema. 3. Central predominant right lung consolidation could relate to edema though the asymmetry to the left lung raises concern for underlying consolidation/pneumonia. The appearance may be due to patient rotation. If there is concern, dedicated PA and lateral views could be obtained. Electronically signed by: Anant Lugo M.D. 08/01/2017 7:39 AM Dictated Date/Time: 08/01/2017 7:37 AM Laboratory Results 08/01/17 06:46 Red Blood Count 4.85, Mean Corpuscular Volume 70.5, Mean Corpuscular Hemoglobin 20.8, Mean Corpuscular Hemoglobin Concent 29.5, Mean Platelet Volume 9.8, Neutrophils (%) (Auto) 69.6, Lymphocytes (%) (Auto) 17.2, Monocytes (%) (Auto) 8.3, Eosinophils (%) (Auto) 4.5, Basophils (%) (Auto) 0.1, Neutrophils # (Auto) 6.16, Lymphocytes # (Auto) 1.53, Monocytes # (Auto) 0.74, Eosinophils # (Auto) 0.40, Basophils # (Auto) 0.01 08/01/17 06:46 Test 08/01/17 06:30 08/01/17 06:46 Urine Color YELLOW Urine Appearance CLEAR (CLEAR) Urine pH 8.0 (4.5-7.5) Urine Specific [place] 1.011 (1.000-1.030) Urine Protein NEG (NEG) Urine Glucose (UA) NEG (NEG) Urine Ketones NEG (NEG) Urine Occult Blood 1+ (NEG) Urine Nitrite NEG (NEG) Urine Bilirubin NEG (NEG) Urine Urobilinogen NEG (NEG) Urine Leukocyte Esterase NEG (NEG) Urine WBC (Auto) 1-5 /hpf (0-5) Urine RBC (Auto) 10-30 /hpf (0-4) Urine Hyaline Casts (Auto) 0 /lpf (0-5) Urine Epithelial Cells (Auto) 5-10 /lpf (0-5) Urine Bacteria (Auto) NEG (NEG) White Blood Count 8.87 K/uL (4.8-10.8) Red Blood Count 4.85 M/uL (4.7-6.1) Hemoglobin 10.1 g/dL (14.0-18.0) Hematocrit 34.2 % (42-52) Mean Corpuscular Volume 70.5 fL (80-100) Mean Corpuscular Hemoglobin 20.8 pg (25-34) Mean Corpuscular Hemoglobin Concent 29.5 g/dl (32-36) Platelet Count 246 K/uL (130-400) Mean Platelet Volume 9.8 fL (7.4-10.4) Neutrophils (%) (Auto) 69.6 % Lymphocytes (%) (Auto) 17.2 % Monocytes (%) (Auto) 8.3 % Eosinophils (%) (Auto) 4.5 % Basophils (%) (Auto) 0.1 % Neutrophils # (Auto) 6.16 K/uL (1.4-6.5) Lymphocytes # (Auto) 1.53 K/uL (1.2-3.4) Monocytes # (Auto) 0.74 K/uL (0.11-0.59) Eosinophils # (Auto) 0.40 K/uL (0-0.5) Basophils # (Auto) 0.01 K/uL (0-0.2) RDW Standard Deviation 45.0 fL (36.4-46.3) RDW Coefficient of Variation 17.7 % (11.5-14.5) Immature Granulocyte % (Auto) 0.3 % Immature Granulocyte # (Auto) 0.03 K/uL (0.00-0.02) Hypochromasia PRESENT Microcytosis PRESENT Anion Gap 5.0 mmol/L (3-11) Est Creatinine Clear Calc Drug Dose 75.2 ml/min Estimated GFR () 72.5 Estimated GFR (Non- 62.6 BUN/Creatinine Ratio 27.3 (10-20) Calcium Level 8.7 mg/dl (8.5-10.1) Pro-B-Type Natriuretic Peptide 1747 pg/ml (0-900) Laboratory results per my review. Medications Administered Medications (Trade) Dose Ordered Sig/Bj Route Start Time Stop Time Status Last Admin Dose Admin Lidocaine HCl (Xylocaine Jelly 2%) 5 ml STK-MED ONCE EXT 08/01/17 06:24 08/01/17 06:25 DC 08/01/17 06:24 5 ML Procedure 0624: Ordered Lidocaine HCl 5ml EXT ED Course 0510: Past medical records reviewed. The patient was evaluated in room B07 by the medical student under my supervision. 0531:The patient was evaluated in room B07 by me. A complete history and physical exam was performed. The bladder scan showed 0cc of fluid, and the patient's brief was completely soaked. 0624: Ordered Lidocaine HCl 5ml EXT for cath UA. Labs were drawn as above. 0637: The patient is requesting coffee. The patient had an episode of hypoxia and a chest x-ray was obtained. 0743: I reevaluated the patient. He is much more comfortable. He is no longer having episodes of abdominal pain. Without supplemental oxygen, the patient's O2 saturation was 88%. 0753: I discussed the patient's case with Elizabeth Figueroa Hospitalist. The patient will be evaluated for further management and care. Radiology recommended a 2 view chest x-ray to rule out an acute pneumonia. This will be obtained. 0758: Upon reevaluation, I discussed findings and results with him. He verbalized agreement of the treatment plan. The patient will be evaluated for further management and care. Medical Decision The patient is a 76 year old male who presents to the ED with the inability to void. Differential diagnosis includes bladder spasm, cystitis, urinary retention. Lab results show: UA: 1+ blood, 10-30 RBC - no signs of infection. Sodium of 133 , BUN of 31, creatinine of 1.1, glucose of 187, WBC of 8.8, hemoglobin of 10.1. This is a 76-year-old male patient who is chronically ill-appearing and presents to the emergency department for episodes of severe suprapubic abdominal pain. The patient explains that he is not able to pass his urine. Although on physical exam, his brief was completely soaked. Bladder scan revealed no evidence of urinary retention. Urinalysis was obtained and revealed no signs of infection. The patient has a PICC line in place and continues to receive IV antibiotics for a most recent Pseudomonas urinary infection. During his evaluation for the suprapubic abdominal pain, the patient complained of a cough with increasing shortness of breath. He did have an episode of hypoxia. Chest x-ray showed evidence of mild congestive heart failure. I discussed the case with the hospitalist and they will evaluate for further management. I was concerned about the patient's hypoxia as he does not have supplemental oxygen at home. He also has significant skin breakdown on his buttocks. Medication Reconcilliation Current Medication List: was personally reviewed by me Blood Pressure Screening Patient's blood pressure: Normal blood pressure Blood pressure disposition: Did not require urgent referral Consults Time Called: 0750 Consulting Physician: Talat Figueroaer Hospitalist Returned Call: [phone] I discussed the patient's case [facility] The patient will be evaluated for further management and care. Impression Primary Impression: Hypoxia Additional Impressions: CHF (congestive heart failure) Lower abdominal pain Scribe Attestation The scribe's documentation has been prepared under my direction and personally reviewed by me in its entirety. I confirm that the note above accurately reflects all work, treatment, procedures, and medical decision making performed by me. Departure Information Dispostion Being Evaluated By Hospitalist Referrals No Doctor, Assigned (PCP) Patient Instructions My [facility] Problem Qualifiers Additional Impressions: CHF (congestive heart failure) Heart failure type: unspecified Heart failure chronicity: acute on chronic Qualified Codes: I50.9 - Heart failure, unspecified
[2017-08-01] MEDS ORDERED: LIDOCAINE 2% JELLY 5 ML TUBE EXT ONE (06:24)
[2017-08-01 07:15] LABS: HEMATOCRIT 34.2 % (42-52); HEMOGLOBIN 10.1 g/dL (14.0-18.0); MEAN CELL VOLUME 70.5 fL (80-100); MEAN CORPUSCULAR HEMOGLOBIN 20.8 pg (25-34); MEAN CORPUSCULAR HGB CONC 29.5 g/dl (32-36); MEAN PLATELET VOLUME 9.8 fL (7.4-10.4); PLATELET COUNT 246 K/uL (130-400); RED CELL DISTRIBUTION WIDTH CV 17.7 % (11.5-14.5); WHITE BLOOD COUNT 8.87 K/uL (4.8-10.8)
[2017-08-01 07:17] LABS: CALCIUM 8.7 mg/dl (8.5-10.1); CREATININE 1.14 mg/dl (0.60-1.40); POTASSIUM 3.7 mmol/L (3.5-5.1)
[2017-08-01 07:29] LABS: BASO % 0.1 %; BASO ABS # 0.01 K/uL (0-0.2); EOS % 4.5 %; IG# 0.03 K/uL (0.00-0.02); LYMPH % 17.2 %; LYMPH ABS # 1.53 K/uL (1.2-3.4); MONO % 8.3 %; MONO ABS # 0.74 K/uL (0.11-0.59); NEUT % 69.6 %; NEUT ABS # 6.16 K/uL (1.4-6.5)
--- NOTE | 2017-08-01 07:40 | DIAGNOSTIC IMAGING REPORT ---
CHEST ONE VIEW PORTABLE CLINICAL HISTORY: 76 years-old Male presenting with cough. TECHNIQUE: Portable upright AP view of the chest was obtained. COMPARISON: 07/12/2017. FINDINGS: The patient is AGGARWAL rotated. Interval placement of a right upper extremity PICC, which terminates at the superior cavoatrial junction. Atherosclerosis of aortic arch. Cardiac silhouette moderately enlarged, unchanged. Interval increase in pulmonary vascular prominence. Increased bronchial wall thickening and right greater than left perihilar/central predominant opacities. No large pleural effusion or pneumothorax. A prominent pericardial fat pad and patient rotation likely accounts for obscuration of the left ventricular apex. Degenerative changes of the thoracic spine. Upper abdomen normal. IMPRESSION: 1. Interval placement of a right upper extremity PICC, which is appropriately positioned. No pneumothorax. 2. Moderate cardiomegaly with evidence of volume overload and possible developing pulmonary edema. 3. Central predominant right lung consolidation could relate to edema though the asymmetry to the left lung raises concern for underlying consolidation/pneumonia. The appearance may be due to patient rotation. If there is concern, dedicated PA and lateral views could be obtained. Electronically signed by: Anant Lugo M.D. 08/01/2017 7:39 AM Dictated Date/Time: 08/01/2017 7:37 AM
--- NOTE | 2017-08-01 08:26 | DIAGNOSTIC IMAGING REPORT ---
CHEST 2 VIEWS ROUTINE HISTORY: eval for right sided consolidation COMPARISON: Chest 08/01/2017. FINDINGS: A right PICC terminates in the distal SVC. The heart remains enlarged. No pneumothorax. No pleural effusions. Bilateral perihilar interstitial and vascular thickening with a right perihilar hazy airspace opacity. This remains unchanged. This favors mild asymmetric pulmonary edema. The heart remains enlarged. The patient is rotated on this study. There appears to be a right anterior shoulder dislocation. Severe degenerative changes within the left shoulder. IMPRESSION: 1. No change in the cardiomegaly and suspected mild asymmetric pulmonary edema. 2. 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 3. Right PICC terminates in the SVC. Electronically signed by: Ed Turner M.D. 08/01/2017 8:25 AM Dictated Date/Time: 08/01/2017 8:19 AM
[2017-08-01] MEDS ORDERED: NITROGLYCERIN 0.4 MG SL PER TAB CHARGE SL PRN (09:00)
[2017-08-01] MEDS ORDERED: MAGNESIUM HYDROXIDE SUSP 30 ML UDC PO PRN (09:00)
[2017-08-01] MEDS ORDERED: GLUCOSE 40% GEL 15 GM TUBE PO PRN (09:30)
[2017-08-01] MEDS ORDERED: GLUCAGON FOR INJ 1 MG VIAL SQ PRN (09:30)
[2017-08-01] MEDS ORDERED: GLUCOSE 10 TABS/TUBE PO PRN (09:30)
[2017-08-01] MEDS ORDERED: DEXTROSE 50% 50 ML SYR IV PRN (09:30)
[2017-08-01] MEDS ORDERED: NYSTATIN POWDER 15GM BTL EXT PRN (09:45)
--- NOTE | 2017-08-01 10:55 | History and Physical ---
History & Physical Date & Time of Service: Aug 01, 2017 at 09:03 Chief Complaint: Urine Symptoms/Unable To Void Primary Care Physician: Syed Valdivia D.OMalcolm History of Present Illness Source: patient, clinic records, hospital records Pt is 76 y/o M with PMH HTN, HLD, DM II, depression/anxiety, chronic diastolic CHF obesity hypoventilation syndrome presented to ER with complaint of inability to urinate. Patient with recent admission 07/11/17 to 07/16 for Pseudomonas UTI, acute on chronic respiratory failure. Patient was treated with cefepime sent home with PICC line and cefepime IV twice daily 7 days. Patient has not had Osorio catheter recently. Pt is denying any SOB or CP at this time. Pt becomes irritable when asked if he has been using his Bipap HS recently. Patient noncompliant with Bipap HS for GILLES. Reported patient with increased intermittent confusion, increased lethargy and has been expressing increased difficulty caring for patient at home. Outpatient [facility] [address] shoe caser has been in contact with patient and , has expressed consideration of long-term placement for patient. Patient with some confusion upon my evaluation today. Patient denies shortness of breath, chest pain, headache. He reports he thinks he has been eating and drinking okay. He does not think that he has had a fever, states will sometimes get a chill intermittently. Reports chronic lower extremity edema, back pain, flank pain, current abdominal pain, cough, rhinorrhea, choking. Further ROS unable to be obtained secondary to confusion. Patient with multiple hospitalizations over the past several months. Admission 02/03/17 for altered mental status and elevated PCO2 of 64. Admission 02/13/17 altered mental status. Admission 04/28/17 CHF. Admission 06/03/17 for acute respiratory failure and high CO2 levels. In the ER today patient noted to be 94 % on room air drops to 89% on room air and increases to 92% on 2 L. Past Medical/Surgical History Medical Problems: (1) Anxiety Status: Chronic (2) Asthma, cough variant Status: Chronic (3) Benign prostatic hyperplasia Status: Chronic (4) Depression Status: Chronic (5) Diabetes mellitus type 2 Status: Chronic (6) Diabetic neuropathy Status: Chronic (7) Diastolic heart failure Status: Chronic (8) Dyslipidemia Status: Chronic (9) Essential hypertension Status: Chronic (10) Gastroesophageal reflux disease Status: Chronic (11) Legal blindness Status: Chronic (12) Morbid obesity Permanent Comment: BMI > 40 Status: Chronic (13) Nocturnal hypoxemia Status: Chronic (14) Obesity hypoventilation syndrome Status: Chronic (15) Peripheral venous insufficiency Status: Chronic (16) Sleep apnea Permanent Comment: noncompliant with CPAP Status: Chronic Surgical Problems: (1) S/P cataract surgery Status: Chronic (2) S/p eyelid surgery Status: Chronic (3) S/P foot surgery, left Status: Chronic (4) S/P panniculectomy Status: Chronic (5) S/P tonsillectomy Status: Chronic Family History Diabetes mellitus MOTHER BROTHER GRANDMOTHER FH: CAD (coronary artery disease) FATHER (CABG) FH: CHF (congestive heart failure) MOTHER BROTHER GI disorder Hypertension MOTHER Social History Smoking Status: Never Smoker Smokeless Tobacco Use: No Alcohol Use: none Drug Use: none Marital Status: Housing status: lives with significant other Occupational Status: retired Immunizations History of Influenza Vaccine: Yes Influenza Vaccine Date: Jan 23, 2017 History of Tetanus Vaccine?: Yes Tetanus Immunization Date: Jun 02, 2013 History of Pneumococcal: Yes Pneumococcal Date: Aug 31, 2015 History of Hepatitis B Vaccine: Unknown Allergies Coded Allergies: Hydromorphone (Verified Adverse Reaction, Severe, DELIRIUM, UNRESPONSIVENESS, 08/01/17) UNRESPONSIVENESS Oxycodone (Verified Adverse Reaction, Unknown, Trouble coming off, 08/01/17 ) Repoted by , NOT ALLERGIC TO THEM Propoxyphene (Verified Adverse Reaction, Unknown, Trouble coming off of Darvocet., 08/01/17) Reported by Home Medications Scheduled Ascorbic Acid (Vitamin C), 1 TAB PO DAILY Aspirin (Aspirin Ec), 81 MG PO DAILY Calcium Citrate-Vitamin D (Calcium Citrate + D3 Max 315-250 mg-Unit), 1 TAB PO DAILY Cefepime HCl (Cefepime), 2 GM IV BID Finasteride (Proscar), 5 MG PO QAM Folic Acid (Folvite), 1 MG PO DAILY Furosemide (Lasix), 80 MG PO BID Gabapentin (Gabapentin), 300 MG PO BID Insulin Aspart (Novolog Flexpen), 10 UNITS SQ TIDM Insulin Glargine (Lantus Solostar), 25 UNITS SQ QPM Magnesium Oxide (Mag-Ox), 400 MG PO DAILY Metolazone (Zaroxolyn), 5 MG PO 2XWK Metoprolol Tartrate (Lopressor) (Lopressor), 12.5 MG PO BID Multivitamin (Multivitamin), 1 TAB PO DAILY Nystatin-Triamcinolone (Nystatin/Triamcinolone), 1 APPLN TOP BID Omeprazole (Prilosec), 20 MG PO QAM Potassium Ext Rel (Klor-Con), 20 MEQ PO BID Simvastatin (Zocor), 40 MG PO QPM Tamsulosin HCl (Tamsulosin HCl), 1 CAP PO HS Venlafaxine Hcl (Effexor), 75 MG PO BID Scheduled PRN Acetaminophen (Tylenol), 325 MG PO Q6 PRN for Pain Loperamide Hcl (Imodium), 2 MG PO BID PRN for Diarrhea Physical Exam Vital Signs Date Time Temp Pulse Resp B/P (MAP) Pulse Ox O2 Delivery O2 Flow Rate FiO2 08/01/17 08:18 37.5 93 16 121/62 93 Nasal Cannula 2.0 08/01/17 06:54 93 Nasal Cannula 2.0 08/01/17 06:52 83 20 129/89 89 Room Air 08/01/17 05:00 36.7 83 20 131/64 94 Room Air General Appearance: + obese, + pertinent finding (Patient lying on left side, appears unable to get comfortable.) Head: normocephalic, atraumatic Eyes: + pertinent finding (No scleral icterus) ENT: pharynx normal, + pertinent finding (Mucous membranes moist) Neck: supple, no JVD, trachea midline Respiratory/Chest: no respiratory distress, no accessory muscle use, + pertinent finding (Diminished breath sounds throughout, mild rales noted bilateral bases no wheezing noted.) Cardiovascular: regular rate, rhythm, no murmur Abdomen/GI: normal bowel sounds, non tender, soft (Distended secondary to adipose tissue) Back: no CVA tenderness Extremities/Musculoskelatal: no calf tenderness, non-tender, + pertinent finding (Edema erythema) Neurologic/Psych: alert, + pertinent finding (Oriented to person, confused on day, nose and hospital and sure which one.) Skin: warm/dry, + pertinent finding (Erythema skin breakdown buttocks scrotum) Diagnostics Laboratory Results Results Past 24 Hours Test 08/01/17 06:30 08/01/17 06:46 Range/Units Urine Color YELLOW Urine Appearance CLEAR CLEAR Urine pH 8.0 4.5-7.5 Urine Specific Geraldine 1.011 1.000-1.030 Urine Protein NEG NEG Urine Glucose (UA) NEG NEG Urine Ketones NEG NEG Urine Occult Blood 1+ NEG Urine Nitrite NEG NEG Urine Bilirubin NEG NEG Urine Urobilinogen NEG NEG Urine Leukocyte Esterase NEG NEG Urine WBC (Auto) 1-5 0-5 /hpf Urine RBC (Auto) 10-30 0-4 /hpf Urine Hyaline Casts (Auto) 0 0-5 /lpf Urine Epithelial Cells (Auto) 5-10 0-5 /lpf Urine Bacteria (Auto) NEG NEG White Blood Count 8.87 4.8-10.8 K/uL Red Blood Count 4.85 4.7-6.1 M/uL Hemoglobin 10.1 14.0-18.0 g/dL Hematocrit 34.2 42-52 % Mean Corpuscular Volume 70.5 80-100 fL Mean Corpuscular Hemoglobin 20.8 25-34 pg Mean Corpuscular Hemoglobin Concent 29.5 32-36 g/dl Platelet Count 246 130-400 K/uL Mean Platelet Volume 9.8 7.4-10.4 fL Neutrophils (%) (Auto) 69.6 % Lymphocytes (%) (Auto) 17.2 % Monocytes (%) (Auto) 8.3 % Eosinophils (%) (Auto) 4.5 % Basophils (%) (Auto) 0.1 % Neutrophils # (Auto) 6.16 1.4-6.5 K/uL Lymphocytes # (Auto) 1.53 1.2-3.4 K/uL Monocytes # (Auto) 0.74 0.11-0.59 K/uL Eosinophils # (Auto) 0.40 0-0.5 K/uL Basophils # (Auto) 0.01 0-0.2 K/uL RDW Standard Deviation 45.0 36.4-46.3 fL RDW Coefficient of Variation 17.7 11.5-14.5 % Immature Granulocyte % (Auto) 0.3 % Immature Granulocyte # (Auto) 0.03 0.00-0.02 K/uL Hypochromasia PRESENT Microcytosis PRESENT Sodium Level 133 136-145 mmol/L Potassium Level 3.7 3.5-5.1 mmol/L Chloride Level 91 98-107 mmol/L Carbon Dioxide Level 37 21-32 mmol/L Anion Gap 5.0 3-11 mmol/L Blood Urea Nitrogen 31 7-18 mg/dl Creatinine 1.14 0.60-1.40 mg/dl Est Creatinine Clear Calc Drug Dose 75.2 ml/min Estimated GFR () 72.5 Estimated GFR (Non- 62.6 BUN/Creatinine Ratio 27.3 10-20 Random Glucose 187 70-99 mg/dl Calcium Level 8.7 8.5-10.1 mg/dl Troponin I < 0.015 0-0.045 ng/ml Pro-B-Type Natriuretic Peptide 1747 0-900 pg/ml Microbiology Results 08/01/17 Urine Culture, Received Pending Diagnostic Radiology CXR 2 VIEW: IMPRESSION: 1. No change in the cardiomegaly and suspected mild asymmetric pulmonary edema. 2. 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 3. Right PICC terminates in the SVC. CXR SINGLE VIEW: IMPRESSION: 1. Interval placement of a right upper extremity PICC, which is appropriately positioned. No pneumothorax. 2. Moderate cardiomegaly with evidence of volume overload and possible developing pulmonary edema. 3. Central predominant right lung consolidation could relate to edema though the asymmetry to the left lung raises concern for underlying consolidation/pneumonia. The appearance may be due to patient rotation. If there is concern, dedicated PA and lateral views could be obtained. Impression Assessment and Plan ACUTE ON CHRONIC DIASTOLIC HEART FAILURE Pt on lasix 80mg bid and Zaroxolyn 5mg on , at home. Follows with Dr Abraham. Pt with O2 94% on RA down to 89% on RA up to 93% on 2L NC in ER. BNP: 1747, was 799 on 07/12/17. Initial troponin negative. Pt denies SOB or CP. CXR: The heart remains enlarged. No pneumothorax. No pleural effusions. Bilateral perihilar interstitial and vascular thickening with a right perihilar hazy airspace opacity. This remains unchanged. This favors mild asymmetric pulmonary edema. ECHO on 07/12/17: EF: 65/70% -lasix 80mg bid -monitor renal functions -Monitor I&O's and daily weights -Consider Osorio catheter if pt not urinating on own ACUTE ON CHRONIC RESPIRATORY FAILURE/OBESITY HYPOVENTILATION SYNDROME/GILLES Pt with hypoxia in ER down to 89% on RA up to 93% on 2L NC. No leukocytosis. Denies SOB or CP. Pt non-compliant with bipap HS at home. -ABG ordered -Bipap HS CONFUSION/LETHARGY Pt's reports intermittent worsening confusion with pt, and pt sleeping most of day. Is wheelchair bound, reports spends most of time in hospital bed at home. expresses too much to take care of pt at home now, and is considering shelter placement, has been in contact with gopi BERTRAND in out pt clinic. In ER today no focal deficits noted. -ABG to r/o CO2 retention -continue to monitor RECENT PSEUDOMONAS UTI Pt d/c hospital on07/16/17, and d/c home with cefepime IV x 7 days. Pt report to ER today with c/o sensation unable to urinate. In ER bladder scan showed no urine. Pt had cath U/A which was unremarkable -pending urine culture -bladder scan and may need to consider Osorio if pt unable to urinate DM II HA1C: 7.0 on 05/15/17 -Continue Lantus, with novolog sliding scale WOUND BUTTOCKS -ancef -wound care consult CKD III Cr: 1.1, baseline -monitor renal functions -avoid nephrotoxic agents when possible HTN -continue metoprolol HYPERLIPIDEMIA -continue statin CHRONIC ANEMIA Hgb: 10, is baseline BPH -continue proscar, flomax GERD -continue PPI DEPRESSION/ANXIETY -continue venlafaxine DVT Prophylaxis -heparin SQ Disposition admit Tele Full Code as per discussion with pt Follows with Dr Valdivia for routine care Pt was seen with Dr Christensen. See addendum Attending addendum. The patient was seen and examined in emergency room. He came in today with history of inability to pass urine. Bladder scan was negative and later on he was noted to have low saturation of 80 % associated with shortness of breath. He has been very noncompliant with his CPAP and/or BiPAP or oxygen. He was noted to have CHF and was advised for admission. On examination in the emergency room. Moderate shortness of breath at rest. Hemodynamically stable with low saturation of 90% Chest-decreased breath sounds with occasional crackles at the bases. Heart-S1-S2 regular, no murmur Abdomen-distended, soft, difficult to palpate, bowel sounds present. Local examination of the buttock and perineal area: Sloughing of skin noted INVESTIGATOR VICE-alert awake oriented 3 Moving all the limbs, no focal neuro deficit. Labs and imaging studies reviewed. Very noncompliant patient with possible CHF and decubiti ulcers over her buttocks and perineal area Admitted to telemetry unit. Agree with assessment and plan. Dr. Charlee Christensen Resuscitation Status VTE Prophylaxis Will order VTE Prophylaxis: Yes Additional Copies To Syed Valdivia D.O.
[2017-08-01] MEDS ORDERED: INSULIN ASPART 100 UNITS/ML 3 ML PEN SQ SCH (12:00)
[2017-08-01 12:59] VITALS: BP 127/56; PULSE 98; TEMP 37.7; O2SAT 96; BMI 38.8
[2017-08-01] MEDS: CEFAZOLIN IV 1,000 MG in SYRINGE 0 ML IV SCH ×2 (13:30→22:28)
[2017-08-01] MEDS ORDERED: INSULIN GLARGINE SOLOSTAR 100 UNITS/ML 3 ML PEN SC SCH (13:30)
[2017-08-01] MEDS: INSULIN ASPART 100 UNITS/ML 3 ML PEN SC SCH ×3 (13:36→21:30)
[2017-08-01 15:31] VITALS: BP 125/65; PULSE 87; TEMP 37; O2SAT 96
[2017-08-01 16:00] VITALS: O2SAT 96
[2017-08-01] MEDS: HEPARIN SOD 5000 UNIT/0.5 ML CARP SQ SCH ×2 (16:08→22:26)
[2017-08-01] MEDS ORDERED: IV FLUIDS COMPLETED PRN (16:45)
[2017-08-01] MEDS: INSULIN GLARGINE SOLOSTAR 100 UNITS/ML 3 ML PEN SC SCH ×2 (16:54→22:27)
[2017-08-01] MEDS: FUROSEMIDE INJ 80 MG in SYRINGE 0 ML IV SCH (18:22)
[2017-08-01 19:46] VITALS: BP 134/71; PULSE 81; O2SAT 97
[2017-08-01 20:00] VITALS: O2SAT 96
[2017-08-01] MEDS: VENLAFAXINE HCL 50 MG TAB PO SCH (20:05)
[2017-08-01] MEDS: TAMSULOSIN HCL 0.4 MG CAP PO SCH (20:06)
[2017-08-01] MEDS: POTASSIUM CHLORIDE 20 MEQ TABCR PO SCH (20:07)
[2017-08-01] MEDS: SIMVASTATIN 40 MG TAB PO SCH (20:08)
[2017-08-01] MEDS: GABAPENTIN 300 MG CAP PO SCH (20:08)
[2017-08-01] MEDS: METOPROLOL TARTRATE 25 MG TAB PO SCH (20:10)
[2017-08-01 23:29] VITALS: BP 154/53; PULSE 73; TEMP 36.8; O2SAT 100
[2017-08-02 03:05] VITALS: BP 103/59; PULSE 72; TEMP 36.8; O2SAT 92
[2017-08-02 04:59] LABS: HEMATOCRIT 31.2 % (42-52); MEAN CELL VOLUME 72.2 fL (80-100); MEAN CORPUSCULAR HEMOGLOBIN 20.8 pg (25-34); MEAN CORPUSCULAR HGB CONC 28.8 g/dl (32-36); MEAN PLATELET VOLUME 9.7 fL (7.4-10.4); PLATELET COUNT 224 K/uL (130-400); RED CELL DISTRIBUTION WIDTH CV 17.8 % (11.5-14.5); RED CELL DISTRIBUTION WIDTH SD 47.4 fL (36.4-46.3); WHITE BLOOD COUNT 6.79 K/uL (4.8-10.8)
[2017-08-02 05:19] LABS: CALCIUM 8.3 mg/dl (8.5-10.1); CREATININE 0.9 mg/dl (0.60-1.40); POTASSIUM 3.4 mmol/L (3.5-5.1)
[2017-08-02] MEDS: HEPARIN SOD 5000 UNIT/0.5 ML CARP SQ SCH ×3 (05:27→21:57)
[2017-08-02] MEDS: CEFAZOLIN IV 1,000 MG in SYRINGE 0 ML IV SCH (05:46)
[2017-08-02 07:00] VITALS: BP 128/74; PULSE 74; TEMP 36.8; O2SAT 100
[2017-08-02] MEDS: INSULIN ASPART 100 UNITS/ML 3 ML PEN SC SCH ×4 (07:33→20:47)
[2017-08-02] MEDS: FINASTERIDE 5 MG TAB PO SCH (07:34)
[2017-08-02] MEDS: GABAPENTIN 300 MG CAP PO SCH ×2 (07:35→20:14)
[2017-08-02] MEDS: POTASSIUM CHLORIDE 20 MEQ TABCR PO SCH ×2 (07:35→20:15)
[2017-08-02] MEDS: MAGNESIUM OXIDE 400 MG TAB PO SCH (07:36)
[2017-08-02] MEDS: ASPIRIN 81 MG ECTAB PO SCH (07:36)
[2017-08-02] MEDS: CALCIUM 600MG + VIT D 400 IU TAB PO SCH (07:36)
[2017-08-02] MEDS: ASCORBIC ACID 500 MG TAB PO SCH (07:36)
[2017-08-02] MEDS: PANTOprazole SOD 40 MG TAB PO SCH (07:36)
[2017-08-02] MEDS: MULTIVITAMIN TAB PO SCH (07:36)
[2017-08-02] MEDS: VENLAFAXINE HCL 50 MG TAB PO SCH ×2 (07:37→20:14)
[2017-08-02] MEDS: INSULIN GLARGINE SOLOSTAR 100 UNITS/ML 3 ML PEN SC SCH ×2 (07:39→21:56)
[2017-08-02] MEDS: METOPROLOL TARTRATE 25 MG TAB PO SCH ×2 (08:09→20:15)
[2017-08-02] MEDS: FUROSEMIDE INJ 80 MG in SYRINGE 0 ML IV SCH ×2 (08:11→17:15)
[2017-08-02] MEDS ORDERED: CEFEPIME IV 2,000 MG in DEXTROSE 5% 100ML 100 ML IV SCH (09:00)
[2017-08-02] MEDS: AMOXICILLIN/CLAVULANATE TAB 875 MG TAB PO SCH ×2 (09:30→17:15)
[2017-08-02] MEDS: ACETAMINOPHEN 325 MG TAB PO PRN ×3 (09:31→23:54)
[2017-08-02 09:36] VITALS: BMI 38.0
[2017-08-02 12:34] VITALS: BP 129/83; PULSE 65; TEMP 36.9; O2SAT 98
[2017-08-02 15:02] VITALS: BP 105/66; PULSE 66; TEMP 36.8; O2SAT 96
--- NOTE | 2017-08-02 17:47 | Progress Note ---
Internal Med Progress Note Date of Service: Aug 02, 2017. Provider Documentation: SUBJECTIVE: The patient was seen and examined in to telemetry. Complains to have pain in the perineal area and requesting for Tylenol Does not want any Osorio and/or straight catheter, once to use his diaper Denies any more shortness of breath than usual, no chest pain and/or palpitation. Remains noncompliant OBJECTIVE: Vital Signs-as noted below Exam: General-no distress at rest Eyes-normal ENT-normal Neck-supple Lungs-decreased breath sounds both sides with minimal crackles at the bases. Heart-regular, no murmur appreciated. Abdomen-benign, distended, nontender, bowel sounds present. Extremities-trace to 1+ edema bilaterally Neuro-alert and awake, oriented 3 Generally weak, no focal neuro deficit. Lab data as noted below. ASSESSMENT & PLAN: ACUTE ON CHRONIC DIASTOLIC HEART FAILURE Pt on lasix 80mg bid and Zaroxolyn 5mg on , at home. Follows with Dr Abraham. Pt with O2 94% on RA down to 89% on RA up to 93% on 2L NC in ER. BNP: 1747, was 799 on 07/12/17. Initial troponin negative. Pt denies SOB or CP. CXR: The heart remains enlarged. No pneumothorax. No pleural effusions. Bilateral perihilar interstitial and vascular thickening with a right perihilar hazy airspace opacity. This remains unchanged. This favors mild asymmetric pulmonary edema. ECHO on 07/12/17: EF: 65/70% -Lasix 80mg bid -Monitor renal functions -Monitor I&O's and daily weights -Try to avoid putting Osorio and or Straight cath -Use Diaper instead ACUTE ON CHRONIC RESPIRATORY FAILURE/OBESITY HYPOVENTILATION SYNDROME/GILLES Pt with hypoxia in ER down to 89% on RA up to 93% on 2L NC. No leukocytosis. Denies SOB or CP. Pt non-compliant with bipap HS at home. -ABG -Mildly hypoxic and Hypercarbic -Refusing BIPAP and or CPAP -continue NC Oxygen CONFUSION/LETHARGY-Cleared Pt's reports intermittent worsening confusion with pt, and pt sleeping most of day. Is wheelchair bound, reports spends most of time in hospital bed at home. expresses too much to take care of pt at home now, and is considering [facility] placement, has been in contact with gopi BERTRAND in out pt clinic. In ER today no focal deficits noted. -ABG to r/o CO2 retention -unremarkable -continue to monitor RECENT PSEUDOMONAS UTI Pt d/c hospital on07/16/17, and d/c home with cefepime IV x 7 days. Pt report to ER today with c/o sensation unable to urinate. In ER bladder scan showed no urine. Pt had cath U/A which was unremarkable -pending urine culture -Will change antibiotic to Augmentin DM II HA1C: 7.0 on 05/15/17 -Continue Lantus, with novolog sliding scale WOUND BUTTOCKS -Ancef ,changed to Augmentin -wound care consult CKD III Cr: 1.1, baseline -monitor renal functions -avoid nephrotoxic agents when possible HTN -continue metoprolol HYPERLIPIDEMIA -continue statin CHRONIC ANEMIA Hgb: 10, is baseline BPH -continue Proscar, Flomax GERD -continue PPI DEPRESSION/ANXIETY -continue venlafaxine DVT Prophylaxis -heparin SQ Disposition admit Tele Full Code as per discussion with pt Follows with Dr Valdivia for routine care PT/OT -likely to need Rehab .Social svc consulted Vital Signs: Date Time Temp Pulse Resp B/P (MAP) Pulse Ox O2 Delivery O2 Flow Rate FiO2 08/02/17 16:00 Nasal Cannula 4.0 08/02/17 15:02 36.8 66 20 105/66 (79) 96 Nasal Cannula 4.0 08/02/17 12:34 36.9 65 24 129/83 (98) 98 Nasal Cannula 4.0 08/02/17 12:00 Nasal Cannula 4.0 08/02/17 08:00 Nasal Cannula 4.0 08/02/17 07:00 36.8 74 20 128/74 (92) 100 Nasal Cannula 4.0 08/02/17 04:00 Nasal Cannula 4.0 08/02/17 04:00 Nasal Cannula 4.0 08/02/17 03:05 36.8 72 19 103/59 (74) 92 Nasal Cannula 4.0 08/02/17 00:00 Nasal Cannula 4.0 08/01/17 23:29 36.8 73 19 154/53 (86) 100 Oxymask 16.0 08/01/17 20:00 96 Oxymask 10.0 08/01/17 19:46 81 20 134/71 (92) 97 Oxymask 15.0 Lab Results: Results Past 24 Hours Test 08/01/17 18:43 08/01/17 20:18 08/02/17 04:40 08/02/17 07:09 Range/Units Troponin I < 0.015 0-0.045 ng/ml Bedside Glucose 155 73 70-99 mg/dl White Blood Count 6.79 4.8-10.8 K/uL Red Blood Count 4.32 4.7-6.1 M/uL Hemoglobin 9.0 14.0-18.0 g/dL Hematocrit 31.2 42-52 % Mean Corpuscular Volume 72.2 80-100 fL Mean Corpuscular Hemoglobin 20.8 25-34 pg Mean Corpuscular Hemoglobin Concent 28.8 32-36 g/dl RDW Standard Deviation 47.4 36.4-46.3 fL RDW Coefficient of Variation 17.8 11.5-14.5 % Platelet Count 224 130-400 K/uL Mean Platelet Volume 9.7 7.4-10.4 fL Sodium Level 137 136-145 mmol/L Potassium Level 3.4 3.5-5.1 mmol/L Chloride Level 94 98-107 mmol/L Carbon Dioxide Level 40 21-32 mmol/L Anion Gap 3.0 3-11 mmol/L Blood Urea Nitrogen 21 7-18 mg/dl Creatinine 0.90 0.60-1.40 mg/dl Est Creatinine Clear Calc Drug Dose 93.1 ml/min Estimated GFR () 96.5 Estimated GFR (Non- 83.3 BUN/Creatinine Ratio 23.8 10-20 Random Glucose 61 70-99 mg/dl Calcium Level 8.3 8.5-10.1 mg/dl Test 08/02/17 11:32 08/02/17 16:14 Range/Units Bedside Glucose 157 108 70-99 mg/dl
[2017-08-02 20:13] VITALS: BP 125/70; PULSE 70; TEMP 36.4; O2SAT 91
[2017-08-02] MEDS: SIMVASTATIN 40 MG TAB PO SCH (20:14)
[2017-08-02] MEDS: TAMSULOSIN HCL 0.4 MG CAP PO SCH (20:15)
[2017-08-02 23:40] VITALS: BP 170/81; PULSE 71; TEMP 36.5; O2SAT 100
[2017-08-03 03:40] VITALS: BP 147/70; PULSE 73; TEMP 36.8; O2SAT 93
[2017-08-03 04:50] LABS: CALCIUM 8.3 mg/dl (8.5-10.1); CREATININE 1.1 mg/dl (0.60-1.40); POTASSIUM 3.6 mmol/L (3.5-5.1)
[2017-08-03] MEDS: HEPARIN SOD 5000 UNIT/0.5 ML CARP SQ SCH ×3 (05:11→21:59)
[2017-08-03 08:00] VITALS: BP 107/63; PULSE 74; TEMP 36.5; O2SAT 100
[2017-08-03] MEDS: FUROSEMIDE INJ 80 MG in SYRINGE 0 ML IV SCH (08:15)
[2017-08-03] MEDS: ASCORBIC ACID 500 MG TAB PO SCH (08:15)
[2017-08-03] MEDS: VENLAFAXINE HCL 50 MG TAB PO SCH ×2 (08:15→21:56)
[2017-08-03] MEDS: POTASSIUM CHLORIDE 20 MEQ TABCR PO SCH ×2 (08:16→21:57)
[2017-08-03] MEDS: FINASTERIDE 5 MG TAB PO SCH (08:16)
[2017-08-03] MEDS: AMOXICILLIN/CLAVULANATE TAB 875 MG TAB PO SCH ×2 (08:16→17:42)
[2017-08-03] MEDS: MAGNESIUM OXIDE 400 MG TAB PO SCH (08:17)
[2017-08-03] MEDS: CALCIUM 600MG + VIT D 400 IU TAB PO SCH (08:17)
[2017-08-03] MEDS: MULTIVITAMIN TAB PO SCH (08:17)
[2017-08-03] MEDS: GABAPENTIN 300 MG CAP PO SCH ×2 (08:17→21:57)
[2017-08-03] MEDS: ASPIRIN 81 MG ECTAB PO SCH (08:17)
[2017-08-03] MEDS: METOPROLOL TARTRATE 25 MG TAB PO SCH ×2 (08:18→21:57)
[2017-08-03] MEDS: PANTOprazole SOD 40 MG TAB PO SCH (08:18)
[2017-08-03] MEDS: INSULIN ASPART 100 UNITS/ML 3 ML PEN SC SCH ×4 (08:28→21:00)
[2017-08-03] MEDS: INSULIN GLARGINE SOLOSTAR 100 UNITS/ML 3 ML PEN SC SCH ×2 (08:29→21:58)
[2017-08-03] MEDS: ACETAMINOPHEN 325 MG TAB PO PRN ×2 (08:58→13:03)
[2017-08-03 11:51] VITALS: BP 110/54; PULSE 82; TEMP 36.5; O2SAT 92
--- NOTE | 2017-08-03 14:12 | Progress Note ---
Internal Med Progress Note Date of Service: Aug 03, 2017. Provider Documentation: SUBJECTIVE: The patient was seen and examined in to telemetry. Complains to have pain in the perineal area and requesting for Tylenol Does not want any Osorio and/or straight catheter, once to use his diaper Denies any more shortness of breath than usual, no chest pain and/or palpitation. Remains noncompliant 08/02 Wants to go home Denies any complaints OBJECTIVE: Vital Signs-as noted below Exam: General-no distress at rest OOB in a chair Eyes-normal ENT-normal Neck-supple Lungs-decreased breath sounds both sides with minimal crackles at the bases. Heart-regular, no murmur appreciated. Abdomen-benign, distended, nontender, bowel sounds present. Extremities-trace to 1+ edema bilaterally Neuro-alert and awake, oriented 3 Generally weak, no focal neuro deficit. Lab data as noted below. ASSESSMENT & PLAN: ACUTE ON CHRONIC DIASTOLIC HEART FAILURE Pt on lasix 80mg bid and Zaroxolyn 5mg on , at home. Follows with Dr Abraham. Pt with O2 94% on RA down to 89% on RA up to 93% on 2L NC in ER. BNP: 1747, was 799 on 07/12/17. Initial troponin negative. Pt denies SOB or CP. CXR: The heart remains enlarged. No pneumothorax. No pleural effusions. Bilateral perihilar interstitial and vascular thickening with a right perihilar hazy airspace opacity. This remains unchanged. This favors mild asymmetric pulmonary edema. ECHO on 07/12/17: EF: 65/70% -Lasix 80mg bid -Monitor renal functions -Monitor I&O's and daily weights -Try to avoid putting Osorio and or Straight cath -Use Diaper instead -change IV Lasix to oral -Clinically a lot better ACUTE ON CHRONIC RESPIRATORY FAILURE/OBESITY HYPOVENTILATION SYNDROME/GILLES Pt with hypoxia in ER down to 89% on RA up to 93% on 2L NC. No leukocytosis. Denies SOB or CP. Pt non-compliant with bipap HS at home. -ABG -Mildly hypoxic and Hypercarbic -Refusing BIPAP and or CPAP -continue NC Oxygen CONFUSION/LETHARGY-Cleared Pt's reports intermittent worsening confusion with pt, and pt sleeping most of day. Is wheelchair bound, reports spends most of time in hospital bed at home. expresses too much to take care of pt at home now, and is considering manager program management placement, has been in contact with gopi BERTRAND in out pt clinic. In ER today no focal deficits noted. -ABG to r/o CO2 retention -unremarkable -continue to monitor RECENT PSEUDOMONAS UTI Pt d/c hospital on07/16/17, and d/c home with cefepime IV x 7 days. Pt report to ER today with c/o sensation unable to urinate. In ER bladder scan showed no urine. Pt had cath U/A which was unremarkable -pending urine culture -Will change antibiotic to Augmentin -Enterococci-Sensitive to Ampicillin DM II HA1C: 7.0 on 05/15/17 -Continue Lantus, with novolog sliding scale WOUND BUTTOCKS -Ancef ,changed to Augmentin -wound care consult CKD III Cr: 1.1, baseline -monitor renal functions -avoid nephrotoxic agents when possible HTN -continue metoprolol HYPERLIPIDEMIA -continue statin CHRONIC ANEMIA Hgb: 10, is baseline BPH -continue Proscar, Flomax GERD -continue PPI DEPRESSION/ANXIETY -continue venlafaxine DVT Prophylaxis -heparin SQ Disposition admit Tele Full Code as per discussion with pt Follows with Dr Valdivia for routine care PT/OT -likely to need Rehab .Social svc consulted Vital Signs: Date Time Temp Pulse Resp B/P (MAP) Pulse Ox O2 Delivery O2 Flow Rate FiO2 08/03/17 12:00 Nasal Cannula 4.0 08/03/17 11:51 36.5 82 16 110/54 (72) 92 08/03/17 08:00 36.5 74 20 107/63 (78) 100 Nasal Cannula 4.0 08/03/17 08:00 Nasal Cannula 4.0 08/03/17 04:00 Nasal Cannula 4.0 08/03/17 03:40 36.8 73 20 147/70 (95) 93 Nasal Cannula 4.0 08/03/17 00:00 Nasal Cannula 4.0 08/02/17 23:40 36.5 71 20 170/81 (110) 100 Nasal Cannula 4.0 08/02/17 20:13 36.4 70 18 125/70 (88) 91 Nasal Cannula 4.0 08/02/17 20:00 Nasal Cannula 4.0 08/02/17 16:00 Nasal Cannula 4.0 08/02/17 15:02 36.8 66 20 105/66 (79) 96 Nasal Cannula 4.0 Lab Results: Results Past 24 Hours Test 08/02/17 16:14 08/02/17 20:24 08/03/17 03:57 08/03/17 06:41 Range/Units Bedside Glucose 108 82 223 70-99 mg/dl Sodium Level 133 136-145 mmol/L Potassium Level 3.6 3.5-5.1 mmol/L Chloride Level 90 98-107 mmol/L Carbon Dioxide Level 39 21-32 mmol/L Anion Gap 4.0 3-11 mmol/L Blood Urea Nitrogen 21 7-18 mg/dl Creatinine 1.10 0.60-1.40 mg/dl Est Creatinine Clear Calc Drug Dose 75.4 ml/min Estimated GFR () 75.7 Estimated GFR (Non- 65.3 BUN/Creatinine Ratio 19.3 10-20 Random Glucose 146 70-99 mg/dl Calcium Level 8.3 8.5-10.1 mg/dl Magnesium Level 1.8 1.8-2.4 mg/dl
[2017-08-03 15:53] VITALS: BP 117/71; PULSE 72; TEMP 36.9; O2SAT 98
[2017-08-03] MEDS: FUROSEMIDE 80 MG TAB PO SCH (17:42)
[2017-08-03 19:26] VITALS: BP 105/56; PULSE 73; TEMP 36.5; O2SAT 93
[2017-08-03] MEDS: TAMSULOSIN HCL 0.4 MG CAP PO SCH (21:57)
[2017-08-03] MEDS: SIMVASTATIN 40 MG TAB PO SCH (21:57)
[2017-08-03 23:34] VITALS: BP 138/73; PULSE 81; TEMP 36.6; O2SAT 92
[2017-08-03] MEDS ORDERED: COUGH DROP (SUGAR FREE) LOZ 24 LOZ/1 BOX LOZ ONE (23:39)
[2017-08-04] VITALS (7 sets, daily range): BP systolic 102–146; BP diastolic 54–77; PULSE 71–86; TEMP 36.4–37.3; O2SAT 91–97
[2017-08-04] MEDS ORDERED: LORAZEPAM 2 MG/ML 1 ML VIAL IV STA (01:57)
[2017-08-04] MEDS: HEPARIN SOD 5000 UNIT/0.5 ML CARP SQ SCH ×3 (05:23→20:54)
[2017-08-04] MEDS: INSULIN ASPART 100 UNITS/ML 3 ML PEN SC SCH ×4 (08:27→20:43)
[2017-08-04] MEDS: FINASTERIDE 5 MG TAB PO SCH (08:28)
[2017-08-04] MEDS: FUROSEMIDE 80 MG TAB PO SCH ×2 (08:28→17:34)
[2017-08-04] MEDS: INSULIN GLARGINE SOLOSTAR 100 UNITS/ML 3 ML PEN SC SCH ×2 (08:28→20:53)
[2017-08-04] MEDS: CALCIUM 600MG + VIT D 400 IU TAB PO SCH (08:28)
[2017-08-04] MEDS: VENLAFAXINE HCL 50 MG TAB PO SCH ×2 (08:29→20:56)
[2017-08-04] MEDS: ASPIRIN 81 MG ECTAB PO SCH (08:29)
[2017-08-04] MEDS: MAGNESIUM OXIDE 400 MG TAB PO SCH (08:29)
[2017-08-04] MEDS: ASCORBIC ACID 500 MG TAB PO SCH (08:29)
[2017-08-04] MEDS: MULTIVITAMIN TAB PO SCH (08:29)
[2017-08-04] MEDS: PANTOprazole SOD 40 MG TAB PO SCH (08:29)
[2017-08-04] MEDS: AMOXICILLIN/CLAVULANATE TAB 875 MG TAB PO SCH ×2 (08:30→17:35)
[2017-08-04] MEDS: POTASSIUM CHLORIDE 20 MEQ TABCR PO SCH ×2 (08:30→20:55)
[2017-08-04] MEDS: GABAPENTIN 300 MG CAP PO SCH ×2 (08:30→20:54)
[2017-08-04] MEDS: METOPROLOL TARTRATE 25 MG TAB PO SCH ×2 (08:31→20:52)
--- NOTE | 2017-08-04 09:38 | Progress Note ---
Internal Med Progress Note Date of Service: Aug 04, 2017. Provider Documentation: SUBJECTIVE: The patient was seen and examined in to telemetry. Complains to have pain in the perineal area and requesting for Tylenol Does not want any Osorio and/or straight catheter, once to use his diaper Denies any more shortness of breath than usual, no chest pain and/or palpitation. Remains noncompliant 08/02 Wants to go home Denies any complaints 08/04 Denies any complaints .Wants to go home OBJECTIVE: Vital Signs-as noted below Exam: General-minimal distress at rest OOB in a chair -seems uncomfortable Eyes-normal ENT-normal Neck-supple Lungs-decreased breath sounds both sides with minimal crackles at the bases. Heart-regular, no murmur appreciated. Abdomen-benign, distended, nontender, bowel sounds present. Extremities-trace to 1+ edema bilaterally Neuro-alert and awake, oriented 3 Generally weak, no focal neuro deficit. Lab data as noted below. ASSESSMENT & PLAN: ACUTE ON CHRONIC DIASTOLIC HEART FAILURE Pt on lasix 80mg bid and Zaroxolyn 5mg on at home. Follows with Dr Abraham. Pt with O2 94% on RA down to 89% on RA up to 93% on 2L NC in ER. BNP: 1747, was 799 on 07/12/17. Initial troponin negative. Pt denies SOB or CP. CXR: The heart remains enlarged. No pneumothorax. No pleural effusions. Bilateral perihilar interstitial and vascular thickening with a right perihilar hazy airspace opacity. This remains unchanged. This favors mild asymmetric pulmonary edema. ECHO on 07/12/17: EF: 65/70% -Lasix 80mg bid -Monitor renal functions -Monitor I&O's and daily weights -Try to avoid putting Osorio and or Straight cath -Use Diaper instead -change IV Lasix to oral -Clinically a lot better with oral Lasix ACUTE ON CHRONIC RESPIRATORY FAILURE/OBESITY HYPOVENTILATION SYNDROME/GILLES Pt with hypoxia in ER down to 89% on RA up to 93% on 2L NC. No leukocytosis. Denies SOB or CP. Pt non-compliant with bipap HS at home. -ABG -Mildly hypoxic and Hypercarbic -Refusing BIPAP and or CPAP -continue NC Oxygen CONFUSION/LETHARGY-Cleared Pt's reports intermittent worsening confusion with pt, and pt sleeping most of day. Is wheelchair bound, reports spends most of time in hospital bed at home. expresses too much to take care of pt at home now, and is considering alf placement, has been in contact with gopi BERTRAND in out pt clinic. In ER today no focal deficits noted. -ABG to r/o CO2 retention -unremarkable -continue to monitor RECENT PSEUDOMONAS UTI AND NOW ENTEROCOCCI UTI Pt d/c hospital on07/16/17, and d/c home with cefepime IV x 7 days. Pt report to ER today with c/o sensation unable to urinate. In ER bladder scan showed no urine. Pt had cath U/A which was unremarkable -Will change antibiotic to Augmentin -Enterococci-Sensitive to Ampicillin DM II HA1C: 7.0 on 05/15/17 -Continue Lantus, with novolog sliding scale WOUND BUTTOCKS -Ancef ,changed to Augmentin -wound care consult CKD III Cr: 1.1, baseline -monitor renal functions -avoid nephrotoxic agents when possible HTN -continue metoprolol HYPERLIPIDEMIA -continue statin CHRONIC ANEMIA Hgb: 10, is baseline BPH -continue Proscar, Flomax GERD -continue PPI DEPRESSION/ANXIETY -continue venlafaxine DVT Prophylaxis -heparin SQ Disposition admit Tele Full Code as per discussion with pt Follows with Dr Valdivia for routine care PT/OT -likely to need Rehab .Social svc consulted WILL NEED TO TALK TO THE BEFORE DISCHARGE Vital Signs: Date Time Temp Pulse Resp B/P (MAP) Pulse Ox O2 Delivery O2 Flow Rate FiO2 08/04/17 07:34 36.8 78 18 115/69 (84) 94 08/04/17 04:04 Nasal Cannula 2.0 08/04/17 03:56 37.3 86 20 135/74 (94) 97 Nasal Cannula 4.0 08/04/17 00:02 Room Air 08/03/17 23:34 36.6 81 20 138/73 (94) 92 Room Air 08/03/17 20:00 Nasal Cannula 2.0 08/03/17 19:26 36.5 73 20 105/56 (72) 93 Nasal Cannula 4.0 08/03/17 16:00 Nasal Cannula 4.0 08/03/17 15:53 36.9 72 18 117/71 (86) 98 Nasal Cannula 4.0 08/03/17 12:00 Nasal Cannula 4.0 08/03/17 11:51 36.5 82 16 110/54 (72) 92 Lab Results: Results Past 24 Hours Test 08/03/17 11:33 08/03/17 16:25 08/03/17 16:28 08/03/17 20:03 Range/Units Bedside Glucose 177 60 73 96 70-99 mg/dl Test 08/04/17 01:15 08/04/17 06:55 Range/Units Bedside Glucose 203 140 70-99 mg/dl
[2017-08-04] MEDS: TAMSULOSIN HCL 0.4 MG CAP PO SCH (20:55)
[2017-08-04] MEDS: SIMVASTATIN 40 MG TAB PO SCH (20:58)
[2017-08-05] VITALS: O2SAT 91
[2017-08-05] MEDS: ACETAMINOPHEN 325 MG TAB PO PRN ×2 (02:56→12:59)
[2017-08-05] MEDS ORDERED: MICONAZOLE NITRATE POWDER 43 GM ONE (05:13)
[2017-08-05] MEDS: HEPARIN SOD 5000 UNIT/0.5 ML CARP SQ SCH ×3 (05:48→21:21)
[2017-08-05 07:11] VITALS: BP 122/69; PULSE 90; TEMP 36.8; O2SAT 91
[2017-08-05] MEDS: ASPIRIN 81 MG ECTAB PO SCH (07:41)
[2017-08-05] MEDS: CALCIUM 600MG + VIT D 400 IU TAB PO SCH (07:41)
[2017-08-05] MEDS: VENLAFAXINE HCL 50 MG TAB PO SCH ×2 (07:41→21:17)
[2017-08-05] MEDS: AMOXICILLIN/CLAVULANATE TAB 875 MG TAB PO SCH ×2 (07:41→16:49)
[2017-08-05] MEDS: POTASSIUM CHLORIDE 20 MEQ TABCR PO SCH ×2 (07:42→21:15)
[2017-08-05] MEDS: MAGNESIUM OXIDE 400 MG TAB PO SCH (07:43)
[2017-08-05] MEDS: FINASTERIDE 5 MG TAB PO SCH (07:43)
[2017-08-05] MEDS: PANTOprazole SOD 40 MG TAB PO SCH (07:43)
[2017-08-05] MEDS: METOPROLOL TARTRATE 25 MG TAB PO SCH ×2 (07:43→21:16)
[2017-08-05] MEDS: MULTIVITAMIN TAB PO SCH (07:43)
[2017-08-05] MEDS: GABAPENTIN 300 MG CAP PO SCH ×2 (07:43→21:14)
[2017-08-05] MEDS: ASCORBIC ACID 500 MG TAB PO SCH (07:43)
[2017-08-05] MEDS: FUROSEMIDE 80 MG TAB PO SCH ×2 (07:44→16:50)
[2017-08-05] MEDS: INSULIN GLARGINE SOLOSTAR 100 UNITS/ML 3 ML PEN SC SCH ×2 (07:46→21:20)
[2017-08-05] MEDS: INSULIN ASPART 100 UNITS/ML 3 ML PEN SC SCH ×4 (08:39→21:20)
[2017-08-05] MEDS ORDERED: LORAZEPAM 0.5 MG TAB PO ONE (09:24)
[2017-08-05] MEDS ORDERED: LORAZEPAM 0.5 MG TAB PO PRN (09:30)
[2017-08-05 14:51] VITALS: Ht 177.8 cm; Wt 117.2 kg
[2017-08-05 15:26] VITALS: BP 143/75; PULSE 81; TEMP 37; O2SAT 94
--- NOTE | 2017-08-05 16:20 | Progress Note ---
Internal Med Progress Note Date of Service: Aug 05, 2017. Provider Documentation: SUBJECTIVE: The patient was seen and examined in to telemetry. Complains to have pain in the perineal area and requesting for Tylenol Does not want any Osorio and/or straight catheter, once to use his diaper Denies any more shortness of breath than usual, no chest pain and/or palpitation. Remains noncompliant 08/02 Wants to go home Denies any complaints 08/04-08/05 Denies any complaints .Wants to go home Agreeable to go to short term rehab Likely to discharge when accepted OBJECTIVE: Vital Signs-as noted below Exam: General-minimal distress at rest OOB in a chair -seems uncomfortable Eyes-normal ENT-normal Neck-supple Lungs-decreased breath sounds both sides with minimal crackles at the bases. Heart-regular, no murmur appreciated. Abdomen-benign, distended, nontender, bowel sounds present. Extremities-trace to 1+ edema bilaterally Neuro-alert and awake, oriented 3 Generally weak, no focal neuro deficit. Lab data as noted below. ASSESSMENT & PLAN: ACUTE ON CHRONIC DIASTOLIC HEART FAILURE Pt on lasix 80mg bid and Zaroxolyn 5mg on , at home. Follows with Dr Abraham. Pt with O2 94% on RA down to 89% on RA up to 93% on 2L NC in ER. BNP: 1747, was 799 on 07/12/17. Initial troponin negative. Pt denies SOB or CP. CXR: The heart remains enlarged. No pneumothorax. No pleural effusions. Bilateral perihilar interstitial and vascular thickening with a right perihilar hazy airspace opacity. This remains unchanged. This favors mild asymmetric pulmonary edema. ECHO on 07/12/17: EF: 65/70% -Lasix 80mg bid -Monitor renal functions -Monitor I&O's and daily weights -Try to avoid putting Osorio and or Straight cath -Use Diaper instead -change IV Lasix to oral -Clinically a lot better with oral Lasix -denies any symptoms ACUTE ON CHRONIC RESPIRATORY FAILURE/OBESITY HYPOVENTILATION SYNDROME/GILLES Pt with hypoxia in ER down to 89% on RA up to 93% on 2L NC. No leukocytosis. Denies SOB or CP. Pt non-compliant with bipap HS at home. -ABG -Mildly hypoxic and Hypercarbic -Refusing BIPAP and or CPAP -continue NC Oxygen and CPAP PRN CONFUSION/LETHARGY-Cleared Pt's reports intermittent worsening confusion with pt, and pt sleeping most of day. Is wheelchair bound, reports spends most of time in hospital bed at home. 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 In ER today no focal deficits noted. -ABG to r/o CO2 retention -unremarkable -continue to monitor RECENT PSEUDOMONAS UTI AND NOW ENTEROCOCCI UTI Pt d/c hospital on07/16/17, and d/c home with cefepime IV x 7 days. Pt report to ER today with c/o sensation unable to urinate. In ER bladder scan showed no urine. Pt had cath U/A which was unremarkable -Will change antibiotic to Augmentin -Enterococci-Sensitive to Ampicillin -no acute symptoms DM II HA1C: 7.0 on 05/15/17 -Continue Lantus, with novolog sliding scale WOUND BUTTOCKS -Ancef ,changed to Augmentin -wound care consult CKD III Cr: 1.1, baseline -monitor renal functions -avoid nephrotoxic agents when possible HTN -continue metoprolol HYPERLIPIDEMIA -continue statin CHRONIC ANEMIA Hgb: 10, is baseline BPH -continue Proscar, Flomax GERD -continue PPI DEPRESSION/ANXIETY -continue venlafaxine DVT Prophylaxis -heparin SQ Disposition admit Tele Full Code as per discussion with pt Follows with Dr Valdivia for routine care PT/OT -likely to need Rehab .Social svc consulted WILL NEED TO TALK TO THE BEFORE DISCHARGE Agreeable to go to Rehab for a short term Vital Signs: Date Time Temp Pulse Resp B/P (MAP) Pulse Ox O2 Delivery O2 Flow Rate FiO2 08/05/17 15:26 37.0 81 20 143/75 (97) 94 Nasal Cannula 2.0 08/05/17 10:20 Nasal Cannula 2.0 08/05/17 07:11 36.8 90 20 122/69 (86) 91 08/05/17 00:00 91 Nasal Cannula 2.0 08/04/17 23:38 36.4 79 20 146/54 (84) 95 Nasal Cannula 2.0 08/04/17 21:42 71 91 Lab Results: Results Past 24 Hours Test 08/04/17 16:27 08/04/17 19:54 08/05/17 07:17 08/05/17 11:26 Range/Units Bedside Glucose 182 162 320 111 70-99 mg/dl
[2017-08-05] MEDS: SIMVASTATIN 40 MG TAB PO SCH (21:14)
[2017-08-05] MEDS: TAMSULOSIN HCL 0.4 MG CAP PO SCH (21:15)
[2017-08-05 23:00] VITALS: BP 117/73; PULSE 77; TEMP 36.8; O2SAT 95
[2017-08-06] MEDS: ACETAMINOPHEN 325 MG TAB PO PRN ×2 (02:57→08:20)
[2017-08-06] MEDS: HEPARIN SOD 5000 UNIT/0.5 ML CARP SQ SCH ×2 (06:01→13:34)
[2017-08-06 06:21] LABS: CALCIUM 8.6 mg/dl (8.5-10.1); CREATININE 1.27 mg/dl (0.60-1.40); POTASSIUM 4.2 mmol/L (3.5-5.1)
[2017-08-06 06:25] LABS: HEMATOCRIT 32.3 % (42-52); HEMOGLOBIN 9.3 g/dL (14.0-18.0); MEAN CELL VOLUME 72.3 fL (80-100); MEAN CORPUSCULAR HEMOGLOBIN 20.8 pg (25-34); MEAN CORPUSCULAR HGB CONC 28.8 g/dl (32-36); MEAN PLATELET VOLUME 9.7 fL (7.4-10.4); PLATELET COUNT 263 K/uL (130-400); RED CELL DISTRIBUTION WIDTH CV 17.8 % (11.5-14.5); RED CELL DISTRIBUTION WIDTH SD 46.8 fL (36.4-46.3)
[2017-08-06 07:39] VITALS: BP 154/69; PULSE 81; TEMP 36.7; O2SAT 98
[2017-08-06] MEDS: CALCIUM 600MG + VIT D 400 IU TAB PO SCH (08:16)
[2017-08-06] MEDS: AMOXICILLIN/CLAVULANATE TAB 875 MG TAB PO SCH (08:16)
[2017-08-06] MEDS: ASPIRIN 81 MG ECTAB PO SCH (08:17)
[2017-08-06] MEDS: POTASSIUM CHLORIDE 20 MEQ TABCR PO SCH (08:17)
[2017-08-06] MEDS: VENLAFAXINE HCL 50 MG TAB PO SCH (08:17)
[2017-08-06] MEDS: GABAPENTIN 300 MG CAP PO SCH (08:18)
[2017-08-06] MEDS: FINASTERIDE 5 MG TAB PO SCH (08:18)
[2017-08-06] MEDS: MULTIVITAMIN TAB PO SCH (08:18)
[2017-08-06] MEDS: MAGNESIUM OXIDE 400 MG TAB PO SCH (08:18)
[2017-08-06] MEDS: METOPROLOL TARTRATE 25 MG TAB PO SCH (08:18)
[2017-08-06] MEDS: FUROSEMIDE 80 MG TAB PO SCH (08:19)
[2017-08-06] MEDS: PANTOprazole SOD 40 MG TAB PO SCH (08:19)
[2017-08-06] MEDS: ASCORBIC ACID 500 MG TAB PO SCH (08:19)
[2017-08-06] MEDS: INSULIN ASPART 100 UNITS/ML 3 ML PEN SC SCH ×2 (08:25→12:25)
[2017-08-06] MEDS: INSULIN GLARGINE SOLOSTAR 100 UNITS/ML 3 ML PEN SC SCH (08:26)
[2017-08-06] MEDS ORDERED: METOLAZONE 5 MG TAB PO SCH (08:30)
--- NOTE | 2017-08-06 09:36 | Progress Note ---
Internal Med Progress Note Date of Service: Aug 06, 2017. Provider Documentation: SUBJECTIVE: The patient was seen and examined in to telemetry. Complains to have pain in the perineal area and requesting for Tylenol Does not want any Osorio and/or straight catheter, once to use his diaper Denies any more shortness of breath than usual, no chest pain and/or palpitation. Remains noncompliant 08/02 Wants to go home Denies any complaints 08/04-08/05 Denies any complaints .Wants to go home Agreeable to go to short term rehab Likely to discharge when accepted 08/06 Denies any complaints Lying in bed comfortably Willing to go to Rehab OBJECTIVE: Vital Signs-as noted below Exam: General-minimal distress at rest Obese Eyes-normal ENT-normal Neck-supple Lungs-decreased breath sounds both sides with minimal crackles at the bases. Heart-regular, no murmur appreciated. Abdomen-benign, distended, nontender, bowel sounds present. Extremities-trace to 1+ edema bilaterally Neuro-alert and awake, oriented 3 Generally weak, no focal neuro deficit. Lab data as noted below. ASSESSMENT & PLAN: ACUTE ON CHRONIC DIASTOLIC HEART FAILURE Pt on lasix 80mg bid and Zaroxolyn 5mg on , at home. Follows with Dr Abraham. Pt with O2 94% on RA down to 89% on RA up to 93% on 2L NC in ER. BNP: 1747, was 799 on 07/12/17. Initial troponin negative. Pt denies SOB or CP. CXR: The heart remains enlarged. No pneumothorax. No pleural effusions. Bilateral perihilar interstitial and vascular thickening with a right perihilar hazy airspace opacity. This remains unchanged. This favors mild asymmetric pulmonary edema. ECHO on 07/12/17: EF: 65/70% -Lasix 80mg bid -Monitor renal functions -Monitor I&O's and daily weights -Try to avoid putting Osorio and or Straight cath -Use Diaper instead -change IV Lasix to oral -Clinically a lot better with oral Lasix -denies any symptoms -Continue Oral Lasix -likely to be discharged today to Rehab ACUTE ON CHRONIC RESPIRATORY FAILURE/OBESITY HYPOVENTILATION SYNDROME/GILLES Pt with hypoxia in ER down to 89% on RA up to 93% on 2L NC. No leukocytosis. Denies SOB or CP. Pt non-compliant with bipap HS at home. -ABG -Mildly hypoxic and Hypercarbic -Refusing BIPAP and or CPAP -continue NC Oxygen and CPAP PRN -very noncompliant -ok with NC Oxygen at the least CONFUSION/LETHARGY-Cleared Pt's reports intermittent worsening confusion with pt, and pt sleeping most of day. Is wheelchair bound, reports spends most of time in hospital bed at home. 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 In ER today no focal deficits noted. -ABG to r/o CO2 retention -unremarkable -continue to monitor RECENT PSEUDOMONAS UTI AND NOW ENTEROCOCCI UTI Pt d/c hospital on07/16/17, and d/c home with cefepime IV x 7 days. Pt report to ER today with c/o sensation unable to urinate. In ER bladder scan showed no urine. Pt had cath U/A which was unremarkable -Will change antibiotic to Augmentin -Enterococci-Sensitive to Ampicillin -no acute symptoms DM II HA1C: 7.0 on 05/15/17 -Continue Lantus, with novolog sliding scale WOUND BUTTOCKS -Ancef ,changed to Augmentin -wound care consult -Not healing the way it supposed to be due to repeated exposure to URINE -Does not want Cath in any way CKD III Cr: 1.1, baseline -monitor renal functions -avoid nephrotoxic agents when possible HTN -continue metoprolol HYPERLIPIDEMIA -continue statin CHRONIC ANEMIA Hgb: 10, is baseline BPH -continue Proscar, Flomax GERD -continue PPI DEPRESSION/ANXIETY -continue venlafaxine DVT Prophylaxis -heparin SQ Disposition admit Tele Full Code as per discussion with pt Follows with Dr Valdivia for routine care PT/OT -likely to need Rehab .Social svc consulted Discussed with the -Agreeable to go to Rehab for a short term. Vital Signs: Date Time Temp Pulse Resp B/P (MAP) Pulse Ox O2 Delivery O2 Flow Rate FiO2 08/06/17 07:39 36.7 81 20 154/69 (97) 98 Nasal Cannula 2.0 08/06/17 00:25 Nasal Cannula 2.0 08/05/17 23:00 36.8 77 16 117/73 (88) 95 Nasal Cannula 2.0 08/05/17 16:30 Nasal Cannula 2.0 08/05/17 15:26 37.0 81 20 143/75 (97) 94 Nasal Cannula 2.0 08/05/17 10:20 Nasal Cannula 2.0 Lab Results: Results Past 24 Hours Test 08/05/17 11:26 08/05/17 16:17 08/05/17 20:39 08/06/17 05:26 Range/Units Bedside Glucose 111 244 187 70-99 mg/dl White Blood Count 6.60 4.8-10.8 K/uL Red Blood Count 4.47 4.7-6.1 M/uL Hemoglobin 9.3 14.0-18.0 g/dL Hematocrit 32.3 42-52 % Mean Corpuscular Volume 72.3 80-100 fL Mean Corpuscular Hemoglobin 20.8 25-34 pg Mean Corpuscular Hemoglobin Concent 28.8 32-36 g/dl RDW Standard Deviation 46.8 36.4-46.3 fL RDW Coefficient of Variation 17.8 11.5-14.5 % Platelet Count 263 130-400 K/uL Mean Platelet Volume 9.7 7.4-10.4 fL Sodium Level 135 136-145 mmol/L Potassium Level 4.2 3.5-5.1 mmol/L Chloride Level 94 98-107 mmol/L Carbon Dioxide Level 36 21-32 mmol/L Anion Gap 5.0 3-11 mmol/L Blood Urea Nitrogen 25 7-18 mg/dl Creatinine 1.27 0.60-1.40 mg/dl Est Creatinine Clear Calc Drug Dose 64.4 ml/min Estimated GFR () 63.6 Estimated GFR (Non- 54.9 BUN/Creatinine Ratio 19.7 10-20 Random Glucose 219 70-99 mg/dl Calcium Level 8.6 8.5-10.1 mg/dl Magnesium Level 2.0 1.8-2.4 mg/dl Test 08/06/17 07:57 Range/Units Bedside Glucose 208 70-99 mg/dl
[2017-08-06] MEDS ORDERED: AMOX1TAB43 PO (10:27)
--- NOTE | 2017-08-06 10:31 | Discharge Instructions ---
Discharge Instructions Date of Service Aug 06, 2017. Admission Reason for Admission: Chf (Congestive Hearth Failure) Discharge Discharge Diagnosis / Problem: Acute on Chronic Diastolic Heart Failure,UTI,GILLES Discharge Goals Goal(s): Prevent Disease Progression Activity Recommendations Activity Level: Assistance Required Therapies: Physical Therapy, Occupational Therapy . Additional Information Patient informed of condition: Yes Advance Directives: No DNR: No Level of Care: Skilled Communicable Disease: No Prognosis: Stable Oxygen at (LPM): 2 liters/min via NC as needed Osorio Catheter: No (Does not want Osorio cath) Instructions / Follow-Up Instructions / Follow-Up Please make an appointment with your PCP in 1 week. Please use CPAP and oxygen as advised Current Hospital Diet Patient's current hospital diet: AHA Diet (Heart Healthy), Diabetes Type 2 Diet Discharge Diet Recommended Diet: AHA Diet (Heart Healthy), Low Sodium Diet (2gm Na), Diabetes Type 2 Diet Fluid Restriction: 2000 ml (8 cups) Pending Studies Studies pending at discharge: no Medical Emergencies . Who to Call and When: Medical Emergencies: If at any time you feel your situation is an emergency, please call 911 immediately. . Non-Emergent Contact Non-Emergency issues call your: Primary Care Provider . Past History Medical & Surgical History: (1) Pseudomonas urinary tract infection (2) Acute respiratory failure (3) Acute on chronic diastolic heart failure (4) Depression (5) Diabetes mellitus type 2 (6) Diabetic neuropathy (7) Obesity hypoventilation syndrome (8) S/P panniculectomy (9) S/P tonsillectomy (10) S/P foot surgery, left (11) S/P cataract surgery (12) S/p eyelid surgery . "Provider Documentation" section prepared by Filemon Christensen. . Core Measure Problem Core Measures: None
--- NOTE | 2017-08-06 11:48 | Discharge Summary ---
Discharge Summary Date of Service Aug 06, 2017. Discharge Summary Admission Date: Aug 02, 2017 at 11:51 Discharge Date: Aug 06, 2017 Discharge Disposition: [facility] facility Principal Diagnosis: Acute on Chronic Diastolic Heart Failure,UTI,GILLES Secondary Diagnoses/Problems: Please see H&P and Hospital progress note Medication Reconciliation New Medications: Amoxicillin & Pot Clavulanate (Amoxicillin/Clavulanate P) 1 Tab Tab 875 MG PO BIDM for 5 Days, #10 TAB Continued Medications: Acetaminophen (Tylenol) 325 Mg Tab 325 MG PO Q6 PRN for Pain, TAB Ascorbic Acid (Vitamin C) 500 Mg Tab 1 TAB PO DAILY Aspirin (Aspirin Ec) 81 Mg Tab 81 MG PO DAILY Calcium Citrate-Vitamin D (Calcium Citrate + D3 Max 315-250 mg-Unit) 1 Tab Tab 1 TAB PO DAILY Finasteride (Proscar) 5 Mg Tab 5 MG PO QAM, 0 Refills Folic Acid (Folvite) 1 Mg Tab 1 MG PO DAILY, TAB Furosemide (Lasix) 80 Mg Tab 80 MG PO BID, TAB Gabapentin (Gabapentin) 300 Mg Cap 300 MG PO BID for 15 Days, #30 CAP 0 Refills Insulin Aspart (Novolog Flexpen) 100 Units/Ml Inj 10 UNITS SQ TIDM PLUS SLIDING SCALE Insulin Glargine (Lantus Solostar) 100 Unit/Ml Inj 25 UNITS SQ QPM, PEN Magnesium Oxide (Mag-Ox) 400 Mg Tab 400 MG PO DAILY for 7 Days, #7 TAB Metolazone (Zaroxolyn) 5 Mg Tab 5 MG PO 2XWK 1/2 hour prior to AM dose of Furosemide. PATIENT TAKES TUES AND Metoprolol Tartrate (Lopressor) (Lopressor) 25 Mg Tab 12.5 MG PO BID, TAB Multivitamin (Multivitamin) Tab 1 TAB PO DAILY, TAB Nystatin-Triamcinolone (Nystatin/Triamcinolone) 1 Cre Cre 1 APPLN TOP BID, #15 GM 1 Refill Apply to groin and perineal area twice daily. Omeprazole (Prilosec) 20 Mg Capcr 20 MG PO QAM Potassium Ext Rel (Klor-Con) 20 Meq Tabcr 20 MEQ PO BID Simvastatin (Zocor) 80 Mg Tab 40 MG PO QPM, TAB Tamsulosin HCl (Tamsulosin HCl) 0.4 Mg Cap 1 CAP PO HS Venlafaxine Hcl (Effexor) 75 Mg Tab 75 MG PO BID Discontinued Medications: Cefepime HCl (Cefepime) 2 Gm Inj 2 GM IV BID for 7 Days Loperamide Hcl (Imodium) 2 Mg Cap 2 MG PO BID PRN for Diarrhea for 7 Days, #14 CAP Admission Information HPI (per Admitting provider): Pt is 76 y/o M with PMH HTN, HLD, DM II, depression/anxiety, chronic diastolic CHF obesity hypoventilation syndrome presented to ER with complaint of inability to urinate. Patient with recent admission 07/11/17 to 07/16 for Pseudomonas UTI, acute on chronic respiratory failure. Patient was treated with cefepime sent home with PICC line and cefepime IV twice daily 7 days. Patient has not had Osorio catheter recently. Pt is denying any SOB or CP at this time. Pt becomes irritable when asked if he has been using his Bipap HS recently. Patient noncompliant with Bipap HS for GILLES. Reported patient with increased intermittent confusion, increased lethargy and has been expressing increased difficulty caring for patient at home. Outpatient [facility] pillowcase maker has been in contact with patient and , has expressed consideration of long-term placement for patient. Patient with some confusion upon my evaluation today. Patient denies shortness of breath, chest pain, headache. He reports he thinks he has been eating and drinking okay. He does not think that he has had a fever, states will sometimes get a chill intermittently. Reports chronic lower extremity edema, back pain, flank pain, current abdominal pain, cough, rhinorrhea, choking. Further ROS unable to be obtained secondary to confusion. Patient with multiple hospitalizations over the past several months. Admission 02/03/17 for altered mental status and elevated PCO2 of 64. Admission 02/13/17 altered mental status. Admission 04/28/17 CHF. Admission 06/03/17 for acute respiratory failure and high CO2 levels. In the ER today patient noted to be 94 % on room air drops to 89% on room air and increases to 92% on 2 L. Past Medical/Surgical History Medical Problems: (1) Anxiety Status: Chronic (2) Asthma, cough variant Status: Chronic (3) Benign prostatic hyperplasia Status: Chronic (4) Depression Status: Chronic (5) Diabetes mellitus type 2 Status: Chronic (6) Diabetic neuropathy Status: Chronic (7) Diastolic heart failure Status: Chronic (8) Dyslipidemia Status: Chronic (9) Essential hypertension Status: Chronic (10) Gastroesophageal reflux disease Status: Chronic (11) Legal blindness Status: Chronic (12) Morbid obesity Permanent Comment: BMI > 40 Status: Chronic (13) Nocturnal hypoxemia Status: Chronic (14) Obesity hypoventilation syndrome Status: Chronic (15) Peripheral venous insufficiency Status: Chronic (16) Sleep apnea Permanent Comment: noncompliant with CPAP Status: Chronic Surgical Problems: (1) S/P cataract surgery Status: Chronic (2) S/p eyelid surgery Status: Chronic (3) S/P foot surgery, left Status: Chronic (4) S/P panniculectomy Status: Chronic (5) S/P tonsillectomy Status: Chronic Family History Diabetes mellitus MOTHER BROTHER GRANDMOTHER FH: CAD (coronary artery disease) FATHER (CABG) FH: CHF (congestive heart failure) MOTHER BROTHER GI disorder Hypertension MOTHER Social History Smoking Status: Never Smoker Smokeless Tobacco Use: No Alcohol Use: none Drug Use: none Marital Status: Housing status: lives with significant other Occupational Status: retired Immunizations History of Influenza Vaccine: Yes Influenza Vaccine Date: Jan 23, 2017 History of Tetanus Vaccine?: Yes Tetanus Immunization Date: Jun 02, 2013 History of Pneumococcal: Yes Pneumococcal Date: Aug 31, 2015 History of Hepatitis B Vaccine: Unknown Allergies Coded Allergies: Hydromorphone (Verified Adverse Reaction, Severe, DELIRIUM, UNRESPONSIVENESS, 08/01/17) UNRESPONSIVENESS Oxycodone (Verified Adverse Reaction, Unknown, Trouble coming off, 08/01/17 ) Repoted by , NOT ALLERGIC TO THEM Propoxyphene (Verified Adverse Reaction, Unknown, Trouble coming off of Darvocet., 08/01/17) Reported by Home Medications Scheduled Ascorbic Acid (Vitamin C), 1 TAB PO DAILY Aspirin (Aspirin Ec), 81 MG PO DAILY Calcium Citrate-Vitamin D (Calcium Citrate + D3 Max 315-250 mg-Unit), 1 TAB PO DAILY Cefepime HCl (Cefepime), 2 GM IV BID Finasteride (Proscar), 5 MG PO QAM Folic Acid (Folvite), 1 MG PO DAILY Furosemide (Lasix), 80 MG PO BID Gabapentin (Gabapentin), 300 MG PO BID Insulin Aspart (Novolog Flexpen), 10 UNITS SQ TIDM Insulin Glargine (Lantus Solostar), 25 UNITS SQ QPM Magnesium Oxide (Mag-Ox), 400 MG PO DAILY Metolazone (Zaroxolyn), 5 MG PO 2XWK Metoprolol Tartrate (Lopressor) (Lopressor), 12.5 MG PO BID Multivitamin (Multivitamin), 1 TAB PO DAILY Nystatin-Triamcinolone (Nystatin/Triamcinolone), 1 APPLN TOP BID Omeprazole (Prilosec), 20 MG PO QAM Potassium Ext Rel (Klor-Con), 20 MEQ PO BID Simvastatin (Zocor), 40 MG PO QPM Tamsulosin HCl (Tamsulosin HCl), 1 CAP PO HS Venlafaxine Hcl (Effexor), 75 MG PO BID Scheduled PRN Acetaminophen (Tylenol), 325 MG PO Q6 PRN for Pain Loperamide Hcl (Imodium), 2 MG PO BID PRN for Diarrhea Physical Exam H&P v2 Physical Exam Vital Signs Date Time Temp Pulse Resp B/P (MAP) Pulse Ox O2 Delivery O2 Flow Rate FiO2 08/01/17 08:18 37.5 93 16 121/62 93 Nasal Cannula 2.0 08/01/17 06:54 93 Nasal Cannula 2.0 08/01/17 06:52 83 20 129/89 89 Room Air 08/01/17 05:00 36.7 83 20 131/64 94 Room Air General Appearance: + obese, + pertinent finding (Patient lying on left side, appears unable to get comfortable.) Head: normocephalic, atraumatic Eyes: + pertinent finding (No scleral icterus) ENT: pharynx normal, + pertinent finding (Mucous membranes moist) Neck: supple, no JVD, trachea midline Respiratory/Chest: no respiratory distress, no accessory muscle use, + pertinent finding (Diminished breath sounds throughout, mild rales noted bilateral bases no wheezing noted.) Cardiovascular: regular rate, rhythm, no murmur Abdomen/GI: normal bowel sounds, non tender, soft (Distended secondary to adipose tissue) Back: no CVA tenderness Extremities/Musculoskelatal: no calf tenderness, non-tender, + pertinent finding (Edema erythema) Neurologic/Psych: alert, + pertinent finding (Oriented to person, confused on day, nose and hospital and sure which one.) Skin: warm/dry, + pertinent finding (Erythema skin breakdown buttocks scrotum) Diagnostics H&P v2 Diagnostics Laboratory Results Results Past 24 Hours Test 08/01/17 06:30 08/01/17 06:46 Range/Units Urine Color YELLOW Urine Appearance CLEAR CLEAR Urine pH 8.0 4.5-7.5 Urine Specific Valentine 1.011 1.000-1.030 Urine Protein NEG NEG Urine Glucose (UA) NEG NEG Urine Ketones NEG NEG Urine Occult Blood 1+ NEG Urine Nitrite NEG NEG Urine Bilirubin NEG NEG Urine Urobilinogen NEG NEG Urine Leukocyte Esterase NEG NEG Urine WBC (Auto) 1-5 0-5 /hpf Urine RBC (Auto) 10-30 0-4 /hpf Urine Hyaline Casts (Auto) 0 0-5 /lpf Urine Epithelial Cells (Auto) 5-10 0-5 /lpf Urine Bacteria (Auto) NEG NEG White Blood Count 8.87 4.8-10.8 K/uL Red Blood Count 4.85 4.7-6.1 M/uL Hemoglobin 10.1 14.0-18.0 g/dL Hematocrit 34.2 42-52 % Mean Corpuscular Volume 70.5 80-100 fL Mean Corpuscular Hemoglobin 20.8 25-34 pg Mean Corpuscular Hemoglobin Concent 29.5 32-36 g/dl Platelet Count 246 130-400 K/uL Mean Platelet Volume 9.8 7.4-10.4 fL Neutrophils (%) (Auto) 69.6 % Lymphocytes (%) (Auto) 17.2 % Monocytes (%) (Auto) 8.3 % Eosinophils (%) (Auto) 4.5 % Basophils (%) (Auto) 0.1 % Neutrophils # (Auto) 6.16 1.4-6.5 K/uL Lymphocytes # (Auto) 1.53 1.2-3.4 K/uL Monocytes # (Auto) 0.74 0.11-0.59 K/uL Eosinophils # (Auto) 0.40 0-0.5 K/uL Basophils # (Auto) 0.01 0-0.2 K/uL RDW Standard Deviation 45.0 36.4-46.3 fL RDW Coefficient of Variation 17.7 11.5-14.5 % Immature Granulocyte % (Auto) 0.3 % Immature Granulocyte # (Auto) 0.03 0.00-0.02 K/uL Hypochromasia PRESENT Microcytosis PRESENT Sodium Level 133 136-145 mmol/L Potassium Level 3.7 3.5-5.1 mmol/L Chloride Level 91 98-107 mmol/L Carbon Dioxide Level 37 21-32 mmol/L Anion Gap 5.0 3-11 mmol/L Blood Urea Nitrogen 31 7-18 mg/dl Creatinine 1.14 0.60-1.40 mg/dl Est Creatinine Clear Calc Drug Dose 75.2 ml/min Estimated GFR () 72.5 Estimated GFR (Non- 62.6 BUN/Creatinine Ratio 27.3 10-20 Random Glucose 187 70-99 mg/dl Calcium Level 8.7 8.5-10.1 mg/dl Troponin I < 0.015 0-0.045 ng/ml Pro-B-Type Natriuretic Peptide 1747 0-900 pg/ml Microbiology Results 08/01/17 Urine Culture, Received Pending Diagnostic Radiology CXR 2 VIEW: IMPRESSION: 1. No change in the cardiomegaly and suspected mild asymmetric pulmonary edema. 2. 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 3. Right PICC terminates in the SVC. CXR SINGLE VIEW: IMPRESSION: 1. Interval placement of a right upper extremity PICC, which is appropriately positioned. No pneumothorax. 2. Moderate cardiomegaly with evidence of volume overload and possible developing pulmonary edema. 3. Central predominant right lung consolidation could relate to edema though the asymmetry to the left lung raises concern for underlying consolidation/pneumonia. The appearance may be due to patient rotation. If there is concern, dedicated PA and lateral views could be obtained. Impression H&P v2 Impression Assessment and Plan ACUTE ON CHRONIC DIASTOLIC HEART FAILURE Pt on lasix 80mg bid and Zaroxolyn 5mg on at home. Follows with Dr Abraham. Pt with O2 94% on RA down to 89% on RA up to 93% on 2L NC in ER. BNP: 1747, was 799 on 07/12/17. Initial troponin negative. Pt denies SOB or CP. CXR: The heart remains enlarged. No pneumothorax. No pleural effusions. Bilateral perihilar interstitial and vascular thickening with a right perihilar hazy airspace opacity. This remains unchanged. This favors mild asymmetric pulmonary edema. ECHO on 07/12/17: EF: 65/70% -lasix 80mg bid -monitor renal functions -Monitor I&O's and daily weights -Consider Osorio catheter if pt not urinating on own ACUTE ON CHRONIC RESPIRATORY FAILURE/OBESITY HYPOVENTILATION SYNDROME/GILLES Pt with hypoxia in ER down to 89% on RA up to 93% on 2L NC. No leukocytosis. Denies SOB or CP. Pt non-compliant with bipap HS at home. -ABG ordered -Bipap HS CONFUSION/LETHARGY Pt's reports intermittent worsening confusion with pt, and pt sleeping most of day. Is wheelchair bound, reports spends most of time in hospital bed at home. expresses too much to take care of pt at home now, and is considering analysis evaluator placement, has been in contact with gopi BERTRAND in out pt clinic. In ER today no focal deficits noted. -ABG to r/o CO2 retention -continue to monitor RECENT PSEUDOMONAS UTI Pt d/c hospital on07/16/17, and d/c home with cefepime IV x 7 days. Pt report to ER today with c/o sensation unable to urinate. In ER bladder scan showed no urine. Pt had cath U/A which was unremarkable -pending urine culture -bladder scan and may need to consider Osorio if pt unable to urinate DM II HA1C: 7.0 on 05/15/17 -Continue Lantus, with novolog sliding scale WOUND BUTTOCKS -ancef -wound care consult CKD III Cr: 1.1, baseline -monitor renal functions -avoid nephrotoxic agents when possible HTN -continue metoprolol HYPERLIPIDEMIA -continue statin CHRONIC ANEMIA Hgb: 10, is baseline BPH -continue proscar, flomax GERD -continue PPI DEPRESSION/ANXIETY -continue venlafaxine DVT Prophylaxis -heparin SQ Disposition admit Tele Full Code as per discussion with pt Follows with Dr Valdivia for routine care Pt was seen with Dr Christensen. See addendum Attending addendum. The patient was seen and examined in emergency room. He came in today with history of inability to pass urine. Bladder scan was negative and later on he was noted to have low saturation of 80 % associated with shortness of breath. He has been very noncompliant with his CPAP and/or BiPAP or oxygen. He was noted to have CHF and was advised for admission. On examination in the emergency room. Moderate shortness of breath at rest. Hemodynamically stable with low saturation of 90% Chest-decreased breath sounds with occasional crackles at the bases. Heart-S1-S2 regular, no murmur Abdomen-distended, soft, difficult to palpate, bowel sounds present. Local examination of the buttock and perineal area: Sloughing of skin noted [employer]-alert awake oriented 3 Moving all the limbs, no focal neuro deficit. Labs and imaging studies reviewed. Very noncompliant patient with possible CHF and decubiti ulcers over her buttocks and perineal area Admitted to telemetry unit. Agree with assessment and plan. Dr. Charlee Christensen Resuscitation Status VTE Prophylaxis Will order VTE Prophylaxis: Yes Additional Copies To Syed Valdivia D.O. Physical Exam (per Admitting): General Appearance: + obese, + pertinent finding (Patient lying on left side , appears unable to get comfortable.) Head: normocephalic, atraumatic Eyes: + pertinent finding (No scleral icterus) ENT: pharynx normal, + pertinent finding (Mucous membranes moist) Neck: supple, no JVD, trachea midline Respiratory/Chest: no respiratory distress, no accessory muscle use, + pertinent finding (Diminished breath sounds throughout, mild rales noted bilateral bases no wheezing noted.) Cardiovascular: regular rate, rhythm, no murmur Abdomen/GI: normal bowel sounds, non tender, soft (Distended secondary to adipose tissue) Back: no CVA tenderness Extremities/Musculoskelatal: no calf tenderness, non-tender, + pertinent finding (Edema erythema) Neurologic/Psych: alert, + pertinent finding (Oriented to person, confused on day, nose and hospital and sure which one.) Skin: warm/dry, + pertinent finding (Erythema skin breakdown buttocks scrotum) Hospital Course ACUTE ON CHRONIC DIASTOLIC HEART FAILURE Pt on lasix 80mg bid and Zaroxolyn 5mg on , at home. Follows with Dr Abraham. Pt with O2 94% on RA down to 89% on RA up to 93% on 2L NC in ER. BNP: 1747, was 799 on 07/12/17. Initial troponin negative. Pt denies SOB or CP. CXR: The heart remains enlarged. No pneumothorax. No pleural effusions. Bilateral perihilar interstitial and vascular thickening with a right perihilar hazy airspace opacity. This remains unchanged. This favors mild asymmetric pulmonary edema. ECHO on 07/12/17: EF: 65/70% -Lasix 80mg bid -Monitor renal functions -Monitor I&O's and daily weights -Try to avoid putting Osorio and or Straight cath -Use Diaper instead -change IV Lasix to oral -Clinically a lot better with oral Lasix -denies any symptoms -Continue Oral Lasix -likely to be discharged today to Rehab ACUTE ON CHRONIC RESPIRATORY FAILURE/OBESITY HYPOVENTILATION SYNDROME/GILLES Pt with hypoxia in ER down to 89% on RA up to 93% on 2L NC. No leukocytosis. Denies SOB or CP. Pt non-compliant with bipap HS at home. -ABG -Mildly hypoxic and Hypercarbic -Refusing BIPAP and or CPAP -continue NC Oxygen and CPAP PRN -very noncompliant -ok with NC Oxygen at the least CONFUSION/LETHARGY-Cleared Pt's reports intermittent worsening confusion with pt, and pt sleeping most of day. Is wheelchair bound, reports spends most of time in hospital bed at home. expresses too much to take care of pt at home now, and is considering analysis evaluator placement, has been in contact with gopi BERTRAND in out pt clinic. In ER today no focal deficits noted. -ABG to r/o CO2 retention -unremarkable -continue to monitor RECENT PSEUDOMONAS UTI AND NOW ENTEROCOCCI UTI Pt d/c hospital on07/16/17, and d/c home with cefepime IV x 7 days. Pt report to ER today with c/o sensation unable to urinate. In ER bladder scan showed no urine. Pt had cath U/A which was unremarkable -Will change antibiotic to Augmentin -Enterococci-Sensitive to Ampicillin -no acute symptoms DM II HA1C: 7.0 on 05/15/17 -Continue Lantus, with novolog sliding scale WOUND BUTTOCKS -Ancef ,changed to Augmentin -wound care consult -Not healing the way it supposed to be due to repeated exposure to URINE -Does not want Cath in any way CKD III Cr: 1.1, baseline -monitor renal functions -avoid nephrotoxic agents when possible HTN -continue metoprolol HYPERLIPIDEMIA -continue statin CHRONIC ANEMIA Hgb: 10, is baseline BPH -continue Proscar, Flomax GERD -continue PPI DEPRESSION/ANXIETY -continue venlafaxine DVT Prophylaxis -heparin SQ Disposition admit Tele Full Code as per discussion with pt Follows with Dr Valdivia for routine care PT/OT -likely to need Rehab .Social svc consulted Discussed with the -Agreeable to go to Rehab for a short term. Total time spent on discharge = 35 minuted This includes examination of the patient, discharge planning, medication reconciliation, and communication with other providers. Discharge Instructions Date of Service Aug 06, 2017. Admission Reason for Admission: Chf (Congestive Hearth Failure) Discharge Discharge Diagnosis / Problem: Acute on Chronic Diastolic Heart Failure,UTI,GILLES Discharge Goals Goal(s): Prevent Disease Progression Activity Recommendations Activity Level: Assistance Required Therapies: Physical Therapy, Occupational Therapy . Additional Information Patient informed of condition: Yes Advance Directives: No DNR: No Level of Care: Skilled Communicable Disease: No Prognosis: Stable Oxygen at (LPM): 2 liters/min via NC as needed Osorio Catheter: No (Does not want Osorio cath) Current Hospital Diet Patient's current hospital diet: AHA Diet (Heart Healthy), Diabetes Type 2 Diet Discharge Diet Recommended Diet: AHA Diet (Heart Healthy), Low Sodium Diet (2gm Na), Diabetes Type 2 Diet Fluid Restriction: 2000 ml (8 cups) Pending Studies Studies pending at discharge: no Medical Emergencies . Who to Call and When: Medical Emergencies: If at any time you feel your situation is an emergency, please call 911 immediately. . Non-Emergent Contact Non-Emergency issues call your: Primary Care Provider . Past History Medical & Surgical History: (1) Pseudomonas urinary tract infection (2) Acute respiratory failure (3) Acute on chronic diastolic heart failure (4) Depression (5) Diabetes mellitus type 2 (6) Diabetic neuropathy (7) Obesity hypoventilation syndrome (8) S/P panniculectomy (9) S/P tonsillectomy (10) S/P foot surgery, left (11) S/P cataract surgery (12) S/p eyelid surgery . "Provider Documentation" section prepared by Filemon Christensen. . Core Measure Problem Core Measures: None <Electronically signed by Filemon Christensen M.D.> Signed: 08/06/17 1134 Signed: Additional Copies To Syed Valdivia D.OMalcolm
[2017-08-06 12:31] VITALS: BP 154/69; PULSE 81; TEMP 36.7; O2SAT 98
== END 2017-08-06 15:45 | DRG 291 ==
LOC: EDBD 04:50 → C.EDB 04:51 → C.2T 08:57 → ENRESERV 12:12 → OBSVTOIN 08-02 11:51 → C.4E 08-04 09:39 → ENRESERV 08-04 10:00
PROVIDERS: ADMIT Internal Medicine; ATTEND Internal Medicine
DX: I13.0 Hypertensive heart and chronic kidney disease with heart failure and stage 1 through stage 4 chronic kidney disease, or unspecified chronic kidney disease (principal); I50.33 Acute on chronic diastolic (congestive) heart failure; J96.21 Acute and chronic respiratory failure with hypoxia; E66.2 Morbid (severe) obesity with alveolar hypoventilation; N39.0 Urinary tract infection, site not specified; B95.2 Enterococcus as the cause of diseases classified elsewhere; R41.0 Disorientation, unspecified; R53.83 Other fatigue; Z99.3 Dependence on wheelchair; L89.309 Pressure ulcer of unspecified buttock, unspecified stage; E11.22 Type 2 diabetes mellitus with diabetic chronic kidney disease; N18.3 Chronic kidney disease, stage 3 (moderate); E78.5 Hyperlipidemia, unspecified; D64.9 Anemia, unspecified; N40.0 Benign prostatic hyperplasia without lower urinary tract symptoms; K21.9 Gastro-esophageal reflux disease without esophagitis; F32.9 Major depressive disorder, single episode, unspecified; F41.9 Anxiety disorder, unspecified; Z91.19 Patient's noncompliance with other medical treatment and regimen; Z68.38 Body mass index [BMI] 38.0-38.9, adult; Z87.440 Personal history of urinary (tract) infections; Z79.4 Long term (current) use of insulin; Z79.82 Long term (current) use of aspirin; Z79.899 Other long term (current) drug therapy; Z88.5 Allergy status to narcotic agent; Z83.3 Family history of diabetes mellitus; Z82.49 Family history of ischemic heart disease and other diseases of the circulatory system; Z83.79 Family history of other diseases of the digestive system

== ENCOUNTER 2017-08-27 17:07 | Inpatient (IN) | payer OTHER ==
[2017-08-27] VITALS (7 sets, daily range): BP systolic 129–132; BP diastolic 60–66; PULSE 79–109; TEMP 37.3–38.2; O2SAT 91–97; BMI 41.1
[~2017-08-27] VITALS: Ht 177.8 cm; Wt 105.0 kg
[~2017-08-27 17:07] MED LIST changes: +AMOX1TAB43 PO; -CFP2IV IV; -IMD2X PO; -PHEN-876 PO; +POTA-639 PO; -POTA20TA16 PO; -PRED10TA PO
[2017-08-27] MEDS ORDERED: PIPERACILLIN/TAZOBACTAM 4.5 GM/100ML D5W IV STA (17:29)
--- NOTE | 2017-08-27 18:00 | EMERGENCY ROOM VISIT NOTE ---
History Report prepared by Tr: Daphne Ellis Under the Supervision of: Dr. Porfirio Mendieta M.D. First contact with patient: 17:21 Stated Complaint: CONFUSION, LETHARGIC, EDEMA TO EXTREMITIES History of Present Illness The patient is a 77 year old male who presents to the Emergency Room with complaints of constant confusion beginning [employer]. The patient lives at home with his . His was not home today and received a phone call from the home health nurse stating that the patient was acting very confused today. He was up out of his motorized wheelchair and attempting to walk around. He was in rooms that he typically does not go into. EMS was called. They are familiar with the patient and found him to be more confused than usual. He does not typically wear oxygen but was found to be in the low 80s on room air. The patient has a history of COPD and CHF. He was recently discharged from the hospital on after being treated for hypoxia. Nursing staff reports that the patient was incontinent of urine upon arrival to the ED and his urine was very foul- smelling. Source of History: patient Onset: [employer] Position: head Quality: other (confusion) Timing: constant Associated Symptoms: + SOB, + urinary symptoms Review of Systems See HPI for pertinent positives & negatives. A total of 10 systems reviewed and were otherwise negative. Past Medical & Surgical Medical Problems: (1) Acute on chronic diastolic heart failure (2) Acute respiratory failure (3) Anxiety (4) Asthma, cough variant (5) Benign prostatic hyperplasia (6) Depression (7) Diabetes mellitus type 2 (8) Diabetic neuropathy (9) Diastolic heart failure (10) Dyslipidemia (11) Essential hypertension (12) Gastroesophageal reflux disease (13) Legal blindness (14) Morbid obesity (15) Nocturnal hypoxemia (16) Obesity hypoventilation syndrome (17) Peripheral venous insufficiency (18) Sleep apnea (19) UTI (urinary tract infection) Surgical Problems: (1) S/P cataract surgery (2) S/p eyelid surgery (3) S/P foot surgery, left (4) S/P panniculectomy (5) S/P tonsillectomy Family History Diabetes mellitus MOTHER BROTHER GRANDMOTHER FH: CAD (coronary artery disease) FATHER (CABG) FH: CHF (congestive heart failure) MOTHER BROTHER GI disorder Hypertension MOTHER Social History Smoking Status: Former Smoker Drug Use: none Marital Status: Occupation Status: retired Current/Historical Medications Scheduled Ascorbic Acid (Vitamin C), 1 TAB PO DAILY Aspirin (Aspirin Ec), 81 MG PO DAILY Calcium Citrate-Vitamin D (Calcium Citrate + D3 Max 315-250 mg-Unit), 1 TAB PO DAILY Finasteride (Proscar), 5 MG PO QAM Folic Acid (Folvite), 1 MG PO DAILY Furosemide (Lasix), 80 MG PO BID Gabapentin (Gabapentin), 300 MG PO BID Insulin Aspart (Novolog Flexpen), 10 UNITS SQ TIDM Insulin Glargine (Lantus Solostar), 25 UNITS SQ QPM Magnesium Oxide (Mag-Ox), 400 MG PO DAILY Metolazone (Zaroxolyn), 5 MG PO 2XWK Metoprolol Tartrate (Lopressor) (Lopressor), 12.5 MG PO BID Multivitamin (Multivitamin), 1 TAB PO DAILY Nystatin-Triamcinolone (Nystatin/Triamcinolone), 1 APPLN TOP BID Omeprazole (Prilosec), 20 MG PO QAM Potassium Ext Rel (Klor-Con), 20 MEQ PO BID Simvastatin (Zocor), 40 MG PO QPM Tamsulosin HCl (Tamsulosin HCl), 1 CAP PO HS Venlafaxine Hcl (Effexor), 75 MG PO BID Scheduled PRN Acetaminophen (Tylenol), 325 MG PO Q6 PRN for Pain Allergies Coded Allergies: Hydromorphone (Verified Adverse Reaction, Severe, DELIRIUM, UNRESPONSIVENESS, 08/01/17) UNRESPONSIVENESS Oxycodone (Verified Adverse Reaction, Unknown, Trouble coming off, 08/01/17 ) Repoted by , NOT ALLERGIC TO THEM Propoxyphene (Verified Adverse Reaction, Unknown, Trouble coming off of Darvocet., 08/01/17) Reported by Physical Exam Vital Signs Date Time Temp Pulse Resp B/P (MAP) Pulse Ox O2 Delivery O2 Flow Rate FiO2 08/27/17 20:15 97 26 91 Nasal Cannula 2.0 08/27/17 18:32 87 24 125/92 100 Nebulizer 08/27/17 18:28 79 92 30 08/27/17 18:26 80 15 91 BiPAP/CPAP 30 08/27/17 17:47 83 97 30 08/27/17 17:35 84 08/27/17 17:28 37.3 90 28 110/50 91 Nasal Cannula 2.0 08/27/17 17:28 91 Nasal Cannula 2.0 Physical Exam GENERAL: Patient is in no acute distress. HEENT: Abrasion to the left forehead, no laceration requiring repair, no hematoma, mucous membranes moist, PERRL. NECK: No stridor, no adenopathy, no meningismus, trachea is midline. LUNGS: A few scattered wheezes. There is some accessory muscle use, increased respiratory rate, breath sounds equal. HEART: Distant heart tones, rhythm seems regular ABDOMEN: Soft, nontender, bowel sounds positive, no hernias, no peritonitis. EXTREMITIES: Bilateral pedal edema, right lower extremity erythema and warmth to the distal leg and ankle, no drainage. NEUROLOGIC: Somnolent but awakens to voices, some speech slur, no focal motor deficits, does answer simple questions. SKIN: No rash, no jaundice, no diaphoresis. Medical Decision & Procedures ER Provider Diagnostic Interpretation: Radiology results as stated below per my review and radiologist interpretation: CHEST ONE VIEW PORTABLE CLINICAL HISTORY: Sepsis COMPARISON STUDY: 08/01/2017 FINDINGS: The study is significantly limited from a technical standpoint. The patient's chin obscures the upper lung zones. The heart is enlarged. There is mild elevation of the interstitium. Mild pulmonary vascular congestion is suspected. There are low lung volumes. There are no large pleural effusions. There is stable right hilar enlargement. There is possible subluxation of the right shoulder.[ IMPRESSION: 1. Technically limited study 2. Suspected mild pulmonary vascular congestion. 3. No evidence of lobar consolidation. Electronically signed by: Oliverio Kramer M.D. 08/27/2017 6:44 PM Dictated Date/Time: 08/27/2017 6:43 PM Laboratory Results 08/27/17 18:00 Red Blood Count 4.51, Mean Corpuscular Volume 69.8, Mean Corpuscular Hemoglobin 20.8, Mean Corpuscular Hemoglobin Concent 29.8, Mean Platelet Volume 9.1, Neutrophils (%) (Auto) 86.7, Lymphocytes (%) (Auto) 5.6, Monocytes (%) (Auto) 7.1, Eosinophils (%) (Auto) 0.2, Basophils (%) (Auto) 0.1, Neutrophils # (Auto) 13.12, Lymphocytes # (Auto) 0.85, Monocytes # (Auto) 1.07, Eosinophils # (Auto) 0.03, Basophils # (Auto) 0.02 08/27/17 18:00 Test 08/27/17 17:34 08/27/17 18:00 08/27/17 18:36 08/27/17 19:01 Bedside Glucose 254 mg/dl (70-99) White Blood Count 15.14 K/uL (4.8-10.8) Red Blood Count 4.51 M/uL (4.7-6.1) Hemoglobin 9.4 g/dL (14.0-18.0) Hematocrit 31.5 % (42-52) Mean Corpuscular Volume 69.8 fL (80-100) Mean Corpuscular Hemoglobin 20.8 pg (25-34) Mean Corpuscular Hemoglobin Concent 29.8 g/dl (32-36) Platelet Count 299 K/uL (130-400) Mean Platelet Volume 9.1 fL (7.4-10.4) Neutrophils (%) (Auto) 86.7 % Lymphocytes (%) (Auto) 5.6 % Monocytes (%) (Auto) 7.1 % Eosinophils (%) (Auto) 0.2 % Basophils (%) (Auto) 0.1 % Neutrophils # (Auto) 13.12 K/uL (1.4-6.5) Lymphocytes # (Auto) 0.85 K/uL (1.2-3.4) Monocytes # (Auto) 1.07 K/uL (0.11-0.59) Eosinophils # (Auto) 0.03 K/uL (0-0.5) Basophils # (Auto) 0.02 K/uL (0-0.2) RDW Standard Deviation 45.8 fL (36.4-46.3) RDW Coefficient of Variation 17.9 % (11.5-14.5) Immature Granulocyte % (Auto) 0.3 % Immature Granulocyte # (Auto) 0.05 K/uL (0.00-0.02) Hypochromasia PRESENT Microcytosis PRESENT Prothrombin Time 10.8 SECONDS (9.0-12.0) Prothromb Time International Ratio 1.0 (0.9-1.1) Activated Partial Thromboplast Time 28.9 SECONDS (21.0-31.0) Partial Thromboplastin Ratio 1.1 Anion Gap 7.0 mmol/L (3-11) Est Creatinine Clear Calc Drug Dose 50.9 ml/min Estimated GFR () 45.4 Estimated GFR (Non- 39.2 BUN/Creatinine Ratio 28.0 (10-20) Calcium Level 8.4 mg/dl (8.5-10.1) Magnesium Level 2.2 mg/dl (1.8-2.4) Total Bilirubin 0.8 mg/dl (0.2-1) Aspartate Amino Transf (AST/SGOT) 18 U/L (15-37) Alanine Aminotransferase (ALT/SGPT) 15 U/L (12-78) Alkaline Phosphatase 86 U/L (45-117) Pro-B-Type Natriuretic Peptide 2903 pg/ml (0-1800) Total Protein 6.7 gm/dl (6.4-8.2) Albumin 2.6 gm/dl (3.4-5.0) Globulin 4.1 gm/dl (2.5-4.0) Albumin/Globulin Ratio 0.6 (0.9-2) Venous Blood pH 7.44 (7.36-7.41) Venous Blood Partial Pressure CO2 57 mmHg (38.0-50.0) Venous Blood Partial Pressure O2 42 mmHg Venous Blood HCO3 38 mmol/L Venous Blood Oxygen Saturation 74.9 % Venous Blood Base Excess 12.3 mEq/L Ammonia 19.4 umol/L (11-32) Bedside Lactic Acid Venous 1.60 mmol/L (0.90-1.70) Laboratory results reviewed by me. Medications Administered Medications (Trade) Dose Ordered Sig/Bj Route Start Time Stop Time Status Last Admin Dose Admin Piperacillin Sod/ Tazobactam Sod (Zosyn Iv) 4.5 gm ONE STAT IV 08/27/17 17:29 08/27/17 17:34 DC 08/27/17 19:13 4.5 GM Albuterol/ Ipratropium (Duoneb) 12 ml NOW STAT INH 08/27/17 18:24 08/27/17 18:25 DC 08/27/17 18:26 12 ML Sodium Chloride 500 ml @ 999 mls/hr Q31M STAT IV 08/27/17 19:13 08/27/17 19:43 DC 08/27/17 20:13 999 MLS/HR Potassium Chloride (Kcl 10 Meq / Wtr) 10 meq NOW STAT IV 08/27/17 19:30 08/27/17 19:31 DC 08/27/17 20:13 10 MEQ ECG Per My Interpretation Indication: altered mental status Rate (beats per minute): 85 Rhythm: sinus rhythm Findings: 1st degree AV block, no ectopy, other (baseline artifact; no ST elevation; no PVCs) ED Course 1720: The patient was evaluated in room C2B. A complete history and physical exam was performed. 1728: Zosyn 4.5 gm IV 1820: I reevaluated the patient at this time and he is on BiPAP. There respiratory therapist was at the bedside and was familiar with the patient. Respiratory therapist states that this is how he typically acts when his CO2 is high. 1823: DuoNeb 12 ml INH 1901: I reevaluated the patient and he is doing well and table at this time. 1912: NSS 500 ml @ 999 mls/hr IV 1922: I spoke with Dr. Alexander. We discussed the patient's case. [facility]. Medical Decision Differential diagnoses includes intracranial bleeding, liver or renal failure, CO2 retention, pneumonia, CHF, sepsis, UTI. There is a moderate leukocytosis at 15,000, this is consistent with infection. The patient is anemic but this is baseline looking back at previous testing.. VBG demonstrates some mild CO2 retention, no acidosis. Chest film shows some congestion, no obvious CHF, no obvious pneumonia or pneumothorax. EKG shows a sinus rhythm, no acute ischemia. Brain CT shows no acute bleed or mass-effect. Lactic acid level is not elevated making severe sepsis less likely. Renal panel testing shows some renal insufficiency/dehydration. Potassium slightly low at 2.9, no evidence for hepatitis. Ammonia level was not elevated. Blood cultures are pending. Urinalysis result is pending. The patient received a small bolus of IV saline, he was placed on BiPAP with a DuoNeb. He received a dose of IV Zosyn. He received a dose of IV potassium. The patient presents with a change in mental status. He does have what appears to be a right leg cellulitis. I think infection is the main cause for his mental status decline. He does not have significant CO2 retention that would cause this type of somnolence. His ammonia level is not elevated. There is no evidence for intracranial bleeding or acute stroke. The patient did improve with the BiPAP and with his care. He became more awake and actually took off the BiPAP apparatus. The nurses are continuing to work on a urine sample. I did speak with the patient and case management. The on-call hospitalist was consulted. Medication Reconcilliation Current Medication List: was personally reviewed by me Blood Pressure Screening Patient's blood pressure: Normal blood pressure Consults Time Called: 1920 Consulting Physician: Dr. Alexander Returned Call: [address] Alexander. We discussed the patient's case. [facility]. Impression Primary Impression: Change in mental status Additional Impressions: Cellulitis Hypokalemia Shortness of breath Critical Care I have personally spent greater than 40 minutes of critical care time in the direct management of this patient. This includes bedside care, interpretation of diagnostic studies, and testing, discussion with consultants, patient, and family members, and other required patient management activities. This 40 minutes is in excess of all separately billable procedures. Scribe Attestation The scribe's documentation has been prepared under my direction and personally reviewed by me in its entirety. I confirm that the note above accurately reflects all work, treatment, procedures, and medical decision making performed by me. Departure Information Dispostion Being Evaluated By Hospitalist Referrals Syed Valdivia D.O. (PCP) Problem Qualifiers
[2017-08-27] MEDS ORDERED: ALBUT/IPRATROP 3MG/0.5MG NEB 3 ML VIAL INH STA (18:24)
[2017-08-27 18:34] LABS: PTT PATIENT 28.9 SECONDS (21.0-31.0)
--- NOTE | 2017-08-27 18:45 | DIAGNOSTIC IMAGING REPORT ---
CHEST ONE VIEW PORTABLE CLINICAL HISTORY: Sepsis COMPARISON STUDY: 08/01/2017 FINDINGS: The study is significantly limited from a technical standpoint. The patient's chin obscures the upper lung zones. The heart is enlarged. There is mild elevation of the interstitium. Mild pulmonary vascular congestion is suspected. There are low lung volumes. There are no large pleural effusions. There is stable right hilar enlargement. There is possible subluxation of the right shoulder.[ IMPRESSION: 1. Technically limited study 2. Suspected mild pulmonary vascular congestion. 3. No evidence of lobar consolidation. Electronically signed by: Oliverio Kramer M.D. 08/27/2017 6:44 PM Dictated Date/Time: 08/27/2017 6:43 PM
[2017-08-27 18:48] LABS: CREATININE 1.67 mg/dl (0.60-1.40)
[2017-08-27 18:49] LABS: ALBUMIN 2.6 gm/dl (3.4-5.0); CALCIUM 8.4 mg/dl (8.5-10.1); POTASSIUM 2.9 mmol/L (3.5-5.1)
[2017-08-27 18:53] LABS: TOTAL PROTEIN 6.7 gm/dl (6.4-8.2)
[2017-08-27 18:56] LABS: HEMATOCRIT 31.5 % (42-52); HEMOGLOBIN 9.4 g/dL (14.0-18.0); MEAN CELL VOLUME 69.8 fL (80-100); MEAN CORPUSCULAR HEMOGLOBIN 20.8 pg (25-34); MEAN CORPUSCULAR HGB CONC 29.8 g/dl (32-36); MEAN PLATELET VOLUME 9.1 fL (7.4-10.4); PLATELET COUNT 299 K/uL (130-400); RED CELL DISTRIBUTION WIDTH CV 17.9 % (11.5-14.5); RED CELL DISTRIBUTION WIDTH SD 45.8 fL (36.4-46.3); WHITE BLOOD COUNT 15.14 K/uL (4.8-10.8)
[2017-08-27 18:57] LABS: BASO % 0.1 %; BASO ABS # 0.02 K/uL (0-0.2); EOS % 0.2 %; EOS ABS # 0.03 K/uL (0-0.5); IG# 0.05 K/uL (0.00-0.02); LYMPH % 5.6 %; LYMPH ABS # 0.85 K/uL (1.2-3.4); MONO % 7.1 %; MONO ABS # 1.07 K/uL (0.11-0.59); NEUT % 86.7 %; NEUT ABS # 13.12 K/uL (1.4-6.5)
[2017-08-27] MEDS ORDERED: SODIUM CHLORIDE 0.9% 500ML 500 ML IV STA (19:13)
[2017-08-27] MEDS ORDERED: POTASSIUM CHLORIDE 10 MEQ / 100ML WTR IV STA (19:30)
--- NOTE | 2017-08-27 20:01 | DIAGNOSTIC IMAGING REPORT ---
CT HEAD WITHOUT CONTRAST (CT) CLINICAL HISTORY: confusion LETHARGY COMPARISON STUDY: 02/16/2017 TECHNIQUE: Axial CT of the brain is performed from the vertex to the skull base. IV contrast was not administered for this examination. A dose lowering technique was utilized adhering to the principles of ALARA. CT DOSE: 844.62 mGy.cm FINDINGS: No intra or extra-axial mass lesions are visualized. There is no CT evidence of acute cortical infarction. There is no evidence of midline shift. There is no acute hemorrhage. No calvarial fractures are visualized. There are patchy white matter hypodensities likely on a small vessel basis. There is no evidence of pathologic ventricular dilatation. There is no evidence of acute sinusitis IMPRESSION: No acute intracranial findings Electronically signed by: Oliverio Kramer M.D. 08/27/2017 8:00 PM Dictated Date/Time: 08/27/2017 7:59 PM
[2017-08-27] MEDS ORDERED: ALUMINUM/MAGNESIUM/SIMETH (MAALOX MAX) 30 ML UDC PO PRN (20:30)
[2017-08-27] MEDS ORDERED: NITROGLYCERIN 0.4 MG SL PER TAB CHARGE SL PRN (20:30)
[2017-08-27] MEDS ORDERED: PIPERACILL/TAZOBAC CONSULT ACTIVE PRN (20:30)
[2017-08-27] MEDS ORDERED: ONDANSETRON INJ 2 MG/ML 2 ML VIAL IV PRN (20:30)
[2017-08-27] MEDS ORDERED: VANCOMYCIN CONSULT ACTIVE PRN (20:30)
[2017-08-27] MEDS ORDERED: POLYETHYLENE (MIRALAX) 17 GM PACK PO PRN (20:30)
[2017-08-27] MEDS ORDERED: FUROSEMIDE INJ 40 MG in SYRINGE 0 ML IV SCH (21:00)
[2017-08-27] MEDS ORDERED: VANCOMYCIN IV 2,750 MG in SODIUM CHLORIDE 0.9% 500ML 500 ML IV ONE (22:00)
[2017-08-27] MEDS ORDERED: POTASSIUM CHLORIDE PWD 20 MEQ PACK PO ONE (22:00)
--- NOTE | 2017-08-27 22:20 | Pharmacy Progress Note ---
Pharmacy Abx Initial Consult Date of Service Aug 27, 2017. Pharmacy Dosing Scope Date of Consult: 08/27/17 Consultation requested by: Dr. Alexander Pharmacy is consulted to initiate vancomycin/Zosyn IV dosing therapy, order appropriate labs and adjust drug dose/frequency. Subjective The patient is a 77 year old male admitted on Aug 27, 2017 at 20:28. Objective Height (Feet): 5 Height (Inches): 10.00 Weight (Kilograms): 129.800 Vital Signs (Past 12Hrs) Vital Signs Past 12 Hours Date Time Temp Pulse Resp B/P (MAP) Pulse Ox O2 Delivery O2 Flow Rate FiO2 08/27/17 21:58 37.3 100 20 132/66 (88) 93 Nasal Cannula 3.0 08/27/17 21:27 Nasal Cannula 2.0 08/27/17 21:14 88 24 120/83 92 Nasal Cannula 2.0 08/27/17 21:09 97 24 120/83 90 08/27/17 20:15 97 26 91 Nasal Cannula 2.0 08/27/17 18:32 87 24 125/92 100 Nebulizer 08/27/17 18:28 79 92 30 08/27/17 18:26 80 15 91 BiPAP/CPAP 30 08/27/17 17:47 83 97 30 08/27/17 17:35 84 08/27/17 17:28 37.3 90 28 110/50 91 Nasal Cannula 2.0 08/27/17 17:28 91 Nasal Cannula 2.0 Lab Results (24Hrs) Laboratory Tests (24 Hours) Test 08/27/17 18:00 White Blood Count 15.14 K/uL (4.8-10.8) H Red Blood Count 4.51 M/uL (4.7-6.1) L Hemoglobin 9.4 g/dL (14.0-18.0) L Hematocrit 31.5 % (42-52) L Mean Corpuscular Volume 69.8 fL (80-100) L Mean Corpuscular Hemoglobin 20.8 pg (25-34) L Mean Corpuscular Hemoglobin Concent 29.8 g/dl (32-36) L Platelet Count 299 K/uL (130-400) Mean Platelet Volume 9.1 fL (7.4-10.4) Neutrophils (%) (Auto) 86.7 % Lymphocytes (%) (Auto) 5.6 % Monocytes (%) (Auto) 7.1 % Eosinophils (%) (Auto) 0.2 % Basophils (%) (Auto) 0.1 % Neutrophils # (Auto) 13.12 K/uL (1.4-6.5) H Lymphocytes # (Auto) 0.85 K/uL (1.2-3.4) L Monocytes # (Auto) 1.07 K/uL (0.11-0.59) H Eosinophils # (Auto) 0.03 K/uL (0-0.5) Basophils # (Auto) 0.02 K/uL (0-0.2) Micro Results Date/Time Source Procedure Growth Status 08/27/17 18:36 Blood Blood Culture Pending Received 08/27/17 18:00 Blood Blood Culture Pending Received Risk Factors for Resistance * Hospitalization for 48 hours or more within the past 90 days * History of infection with a multidrug-resistant organism: Pseudomonas ( sensitive to Zosyn), Enterococcus (sensitive to ampicillin), and MRSA * antibiotic use within the last 90 days Assessment & Plan Assessment 77 year old male with a PMH of COPD on home oxygen, CHF, BPH, GERD, and multiple infections who presents with altered MS and edema to legs. Start on vancomycin and Zosyn for empiric infection presumably skin. Plan vancomycin/Zosyn for treatment of skin infection h/o MRSA Vancomycin IV * Loading dose: 2750 mg (27 mg/kg) * Maintenance dose: 1750 mg IV (13.5 mg/kg) every 24 hours * Goal trough level for cellulitis w/ h/o MRSA : 15 to 20 mcg/mL * DID NOT order trough level as patient's kidney function is elevated.... evaluate tomorrow morning * A less than traditional dose and extended dosing interval have been selected due to likelihood of drug accumulation in obese patient and patient with h/o CKD. Piperacillin/tazobactam * 4.5 g bolus administered over 30 minutes, then 4.5 g IV extended infusion every 8 hours for CrCl greater than 20 mL/min * Aggressive dosing selected due to BMI 35 Pharmacy will continue to follow and will adjust dose/frequency as necessary. Thank you.
[2017-08-27] MEDS: POTASSIUM CHLR 10 MEQ / WTR 10 MEQ in PREMIXED WATER 100 ML IV SCH ×2 (22:23→23:39)
[2017-08-27] MEDS: SIMVASTATIN 40 MG TAB PO SCH (22:26)
[2017-08-27] MEDS: METOPROLOL TARTRATE 25 MG TAB PO SCH (22:27)
[2017-08-27] MEDS: NYSTATIN/TRIAMCINOLONE CR 15 GM TUBE EXT SCH (22:28)
[2017-08-27] MEDS: POTASSIUM CHLORIDE 20 MEQ TABCR PO SCH (22:29)
[2017-08-27] MEDS: GABAPENTIN 300 MG CAP PO SCH (22:30)
[2017-08-27] MEDS: TAMSULOSIN HCL 0.4 MG CAP PO SCH (22:30)
[2017-08-27] MEDS: VENLAFAXINE HCL 37.5 MG TAB PO SCH (22:31)
--- NOTE | 2017-08-27 22:40 | HISTORY & PHYSICAL EXAMINATION ---
DATE OF ADMISSION: 08/27/2017 CHIEF COMPLAINT: Confusion. HISTORY OF PRESENT ILLNESS: This is a 77-year-old male with past medical history significant for morbid obesity, obstructive sleep apnea, noncompliant with BiPAP, diastolic CHF, abdominal pannus, diabetes, BPH, GERD, hyperlipidemia, depression, COPD who has multiple admissions in the recent past for CO2 retention with noncompliance with BiPAP and CHF and UTI with pseudomonas and enterococcus. Was recently discharged from hospital on 2017, to [facility] and he was discharged back home and seen by his family doctor on 08/23/2017. Still has some ambulatory dysfunction. He was walking only 40 feet and he was on and off with Osorio catheter and it was planned for sending him to see Dr. Hameed, urology.Patient also told the family doctor that he is not happy at home and he was agreeable for assisted living. The family doctor is working on it but today, patient was more confused at home and EMS was called and patient was brought in. Patient is somewhat drowsy, but arousable, answers appropriate questions and obeys simple commands. Complaints of pain all over, mostly in his back, at his decubitus ulcer. Denies any fevers but feel chills. Denies any chest pain or belly pain but says he has pain all over the body and but says his breathing is okay. Denies any cough. Denies any nausea. Denies any vomiting. Says his appetite is very good.Normal bowel and bladder movements. Says no blood in the stools. Currently, somewhat restless. Patient is somewhat irritable but he is hemodynamically stable. His ABG was done in the ER showed a CO2 of 57 on the venous gases. Patient agrees that he is noncompliant with BiPAP because he feels he is choked up, but agrees to put on BiPAP currently. ALLERGIES: No known drug allergies. PAST MEDICAL HISTORY: As mentioned above. PAST SURGICAL HISTORY: Excision of excessive skin of the abdomen related to abdominoplasty, tonsillectomy and cataract surgeries. MEDICATIONS: Patient is currently on Tylenol 325 mg every 6 hours p.r.n., aspirin 81 mg p.o. daily, calcium citrate 1 tablet p.o. daily, Cipro 500 mg p.o. b.i.d., Proscar 5 mg p.o. daily, folic acid 1 mg p.o. daily, Lasix 80 mg p.o. b.i.d., gabapentin 300 mg p.o. b.i.d., NovoLog 10 units t.i.d., Lantus 25 units at bedtime, magnesium oxide 400 mg p.o. daily, Zaroxolyn 5 mg 1 tablet every Saturday and , Lopressor 12.5 mg p.o. b.i.d., multivitamin 1 tablet p.o. daily, omeprazole 20 mg p.o. daily, potassium chloride 20 mEq 1 tablet b.i.d., simvastatin 40 mg p.o. at bedtime, Flomax 0.4 mg p.o. at bedtime, vitamin C 500 mg p.o. daily, nystatin triamcinolone to apply b.i.d. FAMILY HISTORY: Significant for father had eye problems, Crohn's disease, heart disorder, bypass surgery. Mother had CHF and hypertension and diabetes. Brother has diabetes. SOCIAL HISTORY: Former smoker, quit in 2004. Prior to that smoked 0.3 packs a day for 30 years. No alcohol use, no drug use. and lives with his . REVIEW OF SYSTEMS: As per HPI, could not get complete review of symptoms as patient is somewhat drowsy and irritable. PHYSICAL EXAMINATION: VITAL SIGNS: Temperature 37.3, pulse 87, respiratory rate 24, blood pressure 122/92, oxygen 92% on BiPAP. HEENT: No pallor, no icterus. Pupils equal, round, reactive to light. NECK: No JVD, no neck masses, no carotid bruits. CARDIOVASCULAR: S1, S2 heard, regular rate and rhythm, no murmur, no gallop. RESPIRATORY SYSTEM: Normal. Mild tachypnea, somewhat diminished breath sounds. No wheezing, mild bibasilar crackles. ABDOMEN: Soft, nontender. No distention. Mild skin ulcers seen in the panniculus. CENTRAL NERVOUS SYSTEM: Alert and oriented x2, not able to tell time, drowsy but arousable, somewhat irritable. Obeys simple commands. Moves his extremities. EXTREMITIES: Bilateral lower extremity edema present. Right lower extremity erythematous up to the wheeler, from ankle to wheeler. Left lower extremity mildly erythematous around the ankle region. LABS: WBC is 15.1, hemoglobin 9.4, hematocrit 31.5, platelets 299. Sodium 134, potassium 2.9, chloride 91, bicarb 26, BUN 47, creatinine 1.6, serum glucose 254, point of care lactic acid 1.6, calcium 8.4, magnesium 2.2, total bilirubin 0.8, AST 18, ALT 15, alkaline phosphatase 86, ammonia 19.4. BNP 2900. PT 10.8, INR 1, PTT 28.9. ABG, venous blood gas: pH 7.4, pCO2 57, pO2 42, bicarbonate 38. CT of the head, no acute intracranial findings seen. Chest x-ray, mild vascular congestion, no evidence of lobar consolidation. EKG: Sinus rhythm with first degree AV block, prolonged QT at 492 at rate of 85. No acute ST changes seen. ASSESSMENT AND PLAN: 1. This is a 77-year-old male who presents with altered mental status, encephalopathy, mostly metabolic secondary to carbon dioxide retention and cellulitis. We placed him on BiPAP. Patient has a history of pseudomonas urinary tract infection and Enterococcus urinary tract infection. We will check the urine sample. Patient also has cellulitis. We will place him on IV Zosyn and IV vancomycin for now and wait for the cultures. [facility] p.r.n. Monitor on the tele floor. Patient has history of multiple admissions for carbon dioxide retention and congestive heart failure and urinary tract infections. Close monitor. 2. History of [id number] diastolic congestive heart failure. Patient is on Lasix 80 mg b.i.d. at home and Zaroxolyn 5 mg on Tuesdays and . Will start on IV Lasix 40 b.i.d., continue . potassium supplements. We will follow the response. Echo done in July 2017, ejection fraction was normal, grossly normal ejection fraction and valvular function. Will consulting cardiology. 3. Question of a fib on monitor. could not get ekg as patient was not cooperative.Currently seems sinus on monitor. Will consult cardiology for further recommendation.\ 4. Benign prostatic hypertrophy and urinary retention. Patient is on Proscar and Flomax which we will continue. Patient was on Osorio on and off. Plan to consult Dr. Hameed as outpatient. We will place him on Osorio catheter and follow the urine cultures, antibiotics as above and will consider consulting Dr. Hameed while patient is in the hospital. Patient was also placed on Cipro while he was discharged from the [facility] which will be stopped for now. 5. Diabetes. We will continue his Lantus. Hold an insulin sliding scale. We will follow the blood sugars. 6. Obstructive sleep apnea and chronic obstructive pulmonary disease. Patient is not on inhalers at home and noncompliant with CPAP at home. He has mild CO2 retention. We will place him on BiPAP while in the hospital and readdress the complaints issue when the patient is more stable. 7. Hypertension. Continue Lopressor. Patient is on Lasix. Monitor the blood pressure in the hospital. 8. History of hyperlipidemia. Continue statin. 9. Gastroesophageal reflux disease. Continue proton pump inhibitor. 10. Morbid obesity, needs counseling. 11. Sacral decubitus ulcer stage I to II. Wound care consult. Antibiotics as above. 12.Acuite renal failure on Chronic kidney disease stage III, baseline creatinine 1.1. Today creatinine is 1.6. Monitor the response while patient is on IV Lasix. 13. Hypokalemia, we will replace the potassium and follow the labs while patient is on Lasix. 14. Chronic anemia. Hemoglobin is 9.4. We will follow the labs. 15. Hyponatremia, chronic mild, we will follow the labs. 16. Depression, anxiety. Continue venlafaxine. 17. Deep vein thrombosis prophylaxis. Heparin subQ. 18. Disposition: Admit to tele floor. As per outpatient records, patient likes to go to assisted living. Social service to help with discharge planning. PT and OT prior to discharge. Code status level 1 full code.per the previous record. MTDD
[2017-08-27] MEDS: HEPARIN SOD 5000 UNIT/0.5 ML CARP SQ SCH (22:43)
[2017-08-27] MEDS: INSULIN ASPART 100 UNITS/ML 3 ML PEN SC SCH (22:44)
[2017-08-27] MEDS: INSULIN GLARGINE SOLOSTAR 100 UNITS/ML 3 ML PEN SQ SCH (22:45)
[2017-08-28] MEDS: POTASSIUM CHLR 10 MEQ / WTR 10 MEQ in PREMIXED WATER 100 ML IV SCH ×2 (01:17→02:15)
[2017-08-28] MEDS: PIPERACILL/TAZOBAC IV 4.5 GM in DEXTROSE 5% 100ML 100 ML IV SCH ×3 (01:17→16:36)
[2017-08-28] MEDS: HEPARIN SOD 5000 UNIT/0.5 ML CARP SQ SCH ×3 (06:00→20:08)
[2017-08-28 06:36] LABS: HEMATOCRIT 29.8 % (42-52); HEMOGLOBIN 8.5 g/dL (14.0-18.0); MEAN CELL VOLUME 70.3 fL (80-100); MEAN CORPUSCULAR HGB CONC 28.5 g/dl (32-36); PLATELET COUNT 237 K/uL (130-400); RED CELL DISTRIBUTION WIDTH CV 18.1 % (11.5-14.5); WHITE BLOOD COUNT 29.95 K/uL (4.8-10.8)
--- NOTE | 2017-08-28 06:48 | Clinical Documentation Query ---
CLINICAL DOCUMENTATION QUERY QUERY 1 OF 2 77 yo male admitted with AMS, cellulitis, and carbon dioxide retention. WBC = 15, HR = 109, Resp = 28, Temp = 38.2. Patient was treated with Zosyn and Vancomycin IV. In your clinical opinion is this patient being managed for: ( x ) Sepsis ( ) Not Agree ( ) Other explanation of clinical findings (Please Explain) ( ) Unable to determine (Please Define) ( ) Need to Discuss The medical record reflects the following clinical findings, treatment, and risk factors. Clinical Indicators: As above Treatment: As above, O2 via BiPAP Risk Factors: Age, cellulitis, frequent UTI QUERY 2 OF 2 Patient's creatinine is 1.67, trending up from 1.27 in July. GFR is 39.2, trending down from 54.9. In your clinical opinion is this patient being managed for: (x ) Acute kidney failure ( ) Not Agree ( ) Other explanation of clinical findings (Please Explain) ( ) Unable to determine (Please Define) ( ) Need to Discuss The medical record reflects the following clinical findings, treatment, and risk factors. Clinical Indicators: As above Treatment: IV hydration, serial PRPs Risk Factors: CHF, CKD, metabolic encephalopathy, possible sepsis Please clarify and document your clinical opinion in the progress notes and discharge summary. Terms such as "probable", "suspected", "likely", "questionable", "possible", or "still to be ruled out" are acceptable. IF IN AGREEMENT, YOU MUST DOCUMENT ABOVE DIAGNOSTIC STATEMENT IN DAILY PROGRESS NOTES AND DISCHARGE SUMMARY. This document is not part of the patient's record. Thank You, Jen Catalan RN [phone]
[2017-08-28 07:03] LABS: CALCIUM 8.1 mg/dl (8.5-10.1); CREATININE 1.98 mg/dl (0.60-1.40); POTASSIUM 3.6 mmol/L (3.5-5.1)
[2017-08-28 07:12] VITALS: BP 112/67; PULSE 80; TEMP 36.4; O2SAT 97
[2017-08-28 07:12] LABS: BASO ABS # 0.01 K/uL (0-0.2); IG# 0.11 K/uL (0.00-0.02); LYMPH % 4.2 %; LYMPH ABS # 1.27 K/uL (1.2-3.4); MONO % 5.6 %; MONO ABS # 1.69 K/uL (0.11-0.59); NEUT % 89.8 %; NEUT ABS # 26.87 K/uL (1.4-6.5)
[2017-08-28 07:30] VITALS: PULSE 89; O2SAT 98
[2017-08-28] MEDS ORDERED: LEVALBUTEROL/IPRATROPIUM NEB INH PRN (08:15)
[2017-08-28] MEDS ORDERED: LEVALBUTEROL 1.25MG/0.5ML NEB INH PRN (08:30)
[2017-08-28] MEDS ORDERED: IPRATROPIUM BROMIDE NEB SOLN 0.02% 2.5 ML VIAL INH PRN (08:30)
[2017-08-28] MEDS: INSULIN ASPART 100 UNITS/ML 3 ML PEN SC SCH ×5 (08:42→21:00)
[2017-08-28] MEDS: POTASSIUM CHLORIDE 20 MEQ TABCR PO SCH (09:17)
[2017-08-28] MEDS: MULTIVITAMIN TAB PO SCH (09:18)
[2017-08-28] MEDS: FINASTERIDE 5 MG TAB PO SCH (09:18)
[2017-08-28] MEDS: VENLAFAXINE HCL 37.5 MG TAB PO SCH ×2 (09:18→20:00)
[2017-08-28] MEDS: CALCIUM 600MG + VIT D 400 IU TAB PO SCH (09:18)
[2017-08-28] MEDS: ASPIRIN 81 MG ECTAB PO SCH (09:18)
[2017-08-28] MEDS: NYSTATIN/TRIAMCINOLONE CR 15 GM TUBE EXT SCH ×2 (09:19→19:56)
[2017-08-28] MEDS: ASCORBIC ACID 500 MG TAB PO SCH (09:19)
[2017-08-28] MEDS: MAGNESIUM OXIDE 400 MG TAB PO SCH (09:19)
[2017-08-28] MEDS: PANTOprazole SOD 40 MG TAB PO SCH (09:19)
[2017-08-28] MEDS: GABAPENTIN 300 MG CAP PO SCH ×2 (09:20→19:57)
[2017-08-28] MEDS: METOPROLOL TARTRATE 25 MG TAB PO SCH ×2 (09:20→19:58)
--- NOTE | 2017-08-28 10:22 | Cardiology Consultation ---
Cardiology Consultation Date of Consultation: Aug 28, 2017. Requesting Physician: Dr. Alexander Attending Physician: Dr. Mitchell Reason for Consultation: CHF/Atrial fibrillation Pt evaluation today including: conversation w/ patient, physical exam, chart review, lab review, review of studies, conversation w/ tour consultant, review of inpatient medication list, conversation w/ attending History of Present Illness Mr. Bowen is a 77-year-old male with a past medical history significant for chronic diastolic CHF, obesity hypoventilation syndrome, obstructive sleep apnea , hypertension, hyperlipidemia, iron deficiency anemia, type 2 diabetes on insulin, venous insufficiency, and chronic sacral wounds who presented last evening with altered mental status and encephalopathy. His preliminary blood cultures show gram negative bacilli. The consult was requested due to his history of CHF. Patient was also noted to have possible atrial fibrillation on telemetry monitoring. ECG shows sinus rhythm. The patient is followed by Dr. Abraham for his outpatient cardiovascular care. He has had multiple hospital admission recently for CO2 retention with noncompliance with BiPAP, CHF, and UTI. He continues to be mildly confused, but is in no acute distress. He denies any chest discomfort or shortness of breath. He denies orthopnea or edema. He has not experienced any palpitations, lightheadedness, dizziness, syncope, or presyncope. He denies abnormal bleeding such as melena, hematochezia, or hematuria. He noted significant back pain on arrival, but denies any pain currently. He has noted a dry cough. Review of Systems: As noted in HPI. All other 10 point ROS are reviewed and otherwise negative at this time. Family History Diabetes mellitus MOTHER BROTHER GRANDMOTHER FH: CAD (coronary artery disease) FATHER (CABG) FH: CHF (congestive heart failure) MOTHER BROTHER GI disorder Hypertension MOTHER Social History Smoking Status: Former Smoker History of Alcohol Use: No Lives at home with his . No alcohol, tobacco, or illicit drug use. Allergies Coded Allergies: Hydromorphone (Verified Adverse Reaction, Severe, DELIRIUM, UNRESPONSIVENESS, 08/01/17) UNRESPONSIVENESS Oxycodone (Verified Adverse Reaction, Unknown, Trouble coming off, 08/01/17 ) Repoted by , NOT ALLERGIC TO THEM Propoxyphene (Verified Adverse Reaction, Unknown, Trouble coming off of Darvocet., 08/01/17) Reported by Medications Current Inpatient Medications Medications (Trade) Dose Ordered Sig/Bj Route Start Time Stop Time Status Last Admin Dose Admin Heparin Sodium (Porcine) (Heparin Sq 5000 Unit/0.5ml) 5,000 unit Q8 SQ 08/27/17 22:00 09/26/17 21:59 08/27/17 22:43 5,000 UNIT Acetaminophen (Tylenol Tab) 650 mg Q4H PRN PO 08/27/17 20:30 09/26/17 20:29 Al Hydrox/Mg Hydrox/Simethicone (Maalox Max Susp) 15 ml Q4H PRN PO 08/27/17 20:30 09/26/17 20:29 Ondansetron HCl (Zofran Inj) 4 mg Q6H PRN IV 08/27/17 20:30 09/26/17 20:29 Nitroglycerin (Nitrostat Tab) 0.4 mg UD PRN SL 08/27/17 20:30 09/26/17 20:29 Polyethylene (Miralax Powder Packet) 17 gm DAILY PRN PO 08/27/17 20:30 09/26/17 20:29 Ascorbic Acid (Vitamin C Tab) 500 mg DAILY PO 08/28/17 09:00 09/27/17 08:59 08/28/17 09:19 500 MG Aspirin (Ecotrin Tab) 81 mg DAILY PO 08/28/17 09:00 09/27/17 08:59 08/28/17 09:18 81 MG Finasteride (Proscar Tab) 5 mg QAM PO 08/28/17 09:00 09/27/17 08:59 08/28/17 09:18 5 MG Folic Acid (Folvite Tab) 1 mg DAILY PO 08/28/17 09:00 09/27/17 08:59 08/28/17 09:18 1 MG Gabapentin (Neurontin Cap) 300 mg BID PO 08/27/17 21:00 09/26/17 20:59 08/28/17 09:20 300 MG Insulin Glargine (Lantus Solostar Pen) 25 units QPM SQ 08/27/17 21:00 09/26/17 20:59 08/27/17 22:45 25 UNITS Magnesium Oxide (Mag-Ox Tab) 400 mg DAILY PO 08/28/17 09:00 09/27/17 08:59 08/28/17 09:19 400 MG Metoprolol Tartrate (Lopressor Tab) 12.5 mg BID PO 08/27/17 21:00 09/26/17 20:59 08/28/17 09:20 12.5 MG Multivitamins (Multivitamin Tab) 1 tab DAILY PO 08/28/17 09:00 09/27/17 08:59 08/28/17 09:18 1 TAB Nystatin/ Triamcinolone Acetonide (Mycogen II Crm) 1 appln BID EXT 08/27/17 21:00 09/26/17 20:59 08/28/17 09:19 1 APPLN Potassium Chloride (Klor-Con Tab) 20 meq BID PO 08/27/17 21:00 09/26/17 20:59 08/28/17 09:17 20 MEQ Simvastatin (Zocor Tab) 40 mg QPM PO 08/27/17 21:00 09/26/17 20:59 08/27/17 22:26 40 MG Tamsulosin HCl (Flomax Cap) 0.4 mg HS PO 08/27/17 21:00 09/26/17 20:59 08/27/17 22:30 0.4 MG Venlafaxine HCl (effeXOR TAB) 75 mg BID PO 08/27/17 21:00 09/26/17 20:59 08/28/17 09:18 75 MG Calcium/Vitamin D (Caltrate Plus Tab) 1 tab DAILY PO 08/28/17 09:00 09/27/17 08:59 08/28/17 09:18 1 TAB Pantoprazole Sodium (Protonix Tab) 40 mg QAM PO 08/28/17 09:00 09/27/17 08:59 08/28/17 09:19 40 MG Furosemide 40 mg/ Syringe 4 ml @ 4 mls/min BID17 IV 08/27/17 21:00 09/26/17 20:59 Future Hold 08/27/17 22:29 4 MLS/MIN Piperacillin Sod/ Tazobactam Sod 4.5 gm/Dextrose 120 ml @ 30 mls/hr Q8H IV 08/28/17 00:00 09/07/17 00:00 08/28/17 09:16 30 MLS/HR Miscellaneous Information (Consult) 1 ea UD PRN N/A 08/27/17 20:30 09/26/17 20:29 Vancomycin HCl 1750 mg/Sodium Chloride 535 ml @ 200 mls/hr Q24H IV 08/28/17 17:00 09/07/17 16:59 Miscellaneous Information (Consult) 1 ea UD PRN N/A 08/27/17 20:30 09/26/17 20:29 Insulin Aspart (novoLOG ASPART) SLIDING SCALE G... ACHS SC 08/27/17 21:00 09/26/17 20:59 08/28/17 08:42 8 UNITS Ipratropium Pryor (Atrovent 0.02% 0.5MG/2.5ML Neb) 0.5 mg Q4 PRN INH 08/28/17 08:30 09/27/17 08:29 Levalbuterol (Xopenex 1.25MG/ 0.5ML Neb) 1.25 mg Q4 PRN INH 08/28/17 08:30 09/27/17 08:29 Physical Exam Vital Signs Past 12 Hours Date Time Temp Pulse Resp B/P (MAP) Pulse Ox O2 Delivery O2 Flow Rate FiO2 08/28/17 08:00 BiPAP 08/28/17 07:30 89 98 35 08/28/17 07:12 36.4 80 20 112/67 (82) 97 BiPAP 08/28/17 04:49 BiPAP 08/28/17 00:00 BiPAP 08/27/17 23:25 38.2 97 24 129/60 (83) 97 BiPAP 08/27/17 22:40 109 92 35 08/27/17 22:00 93 BiPAP 3.0 30 08/27/17 21:58 37.3 100 20 132/66 (88) 93 Nasal Cannula 3.0 Constitutional: Alert, in no acute distress, mildly confused HEENT: Head is atraumatic and normocephalic. EOMs intact. Sclera anicteric. Face is symmetric. No perioral cyanosis. Mucous membranes moist. Neck: Supple, no appreciable JVD but difficult exam Pulmonary: Normal respiratory effort, bibasilar crackles Cardiac: Distant heart sounds. Regular rate and rhythm, normal S1 and S2, no gallops, no rubs, no obvious murmurs Extremities: Trace lower extremity edema. No clubbing or cyanosis. Pulses intact Abdomen: Obese. Normal bowel sounds, soft, non-tender, no abdominal mass palpated Skin: Erythema of right lower extremity. Mild erythema of left lower extremity. No skin lesions Neurological: Oriented to person, place Data Laboratory Results: Last 24 Hours Test 08/27/17 17:34 08/27/17 18:00 08/27/17 18:36 08/27/17 19:01 Bedside Glucose 254 mg/dl White Blood Count 15.14 K/uL Red Blood Count 4.51 M/uL Hemoglobin 9.4 g/dL Hematocrit 31.5 % Mean Corpuscular Volume 69.8 fL Mean Corpuscular Hemoglobin 20.8 pg Mean Corpuscular Hemoglobin Concent 29.8 g/dl Platelet Count 299 K/uL Mean Platelet Volume 9.1 fL Neutrophils (%) (Auto) 86.7 % Lymphocytes (%) (Auto) 5.6 % Monocytes (%) (Auto) 7.1 % Eosinophils (%) (Auto) 0.2 % Basophils (%) (Auto) 0.1 % Neutrophils # (Auto) 13.12 K/uL Lymphocytes # (Auto) 0.85 K/uL Monocytes # (Auto) 1.07 K/uL Eosinophils # (Auto) 0.03 K/uL Basophils # (Auto) 0.02 K/uL RDW Standard Deviation 45.8 fL RDW Coefficient of Variation 17.9 % Immature Granulocyte % (Auto) 0.3 % Immature Granulocyte # (Auto) 0.05 K/uL Hypochromasia PRESENT Microcytosis PRESENT Prothrombin Time 10.8 SECONDS Prothromb Time International Ratio 1.0 Activated Partial Thromboplast Time 28.9 SECONDS Partial Thromboplastin Ratio 1.1 Sodium Level 134 mmol/L Potassium Level 2.9 mmol/L Chloride Level 91 mmol/L Carbon Dioxide Level 36 mmol/L Anion Gap 7.0 mmol/L Blood Urea Nitrogen 47 mg/dl Creatinine 1.67 mg/dl Est Creatinine Clear Calc Drug Dose 50.9 ml/min Estimated GFR () 45.4 Estimated GFR (Non- 39.2 BUN/Creatinine Ratio 28.0 Random Glucose 236 mg/dl Calcium Level 8.4 mg/dl Magnesium Level 2.2 mg/dl Total Bilirubin 0.8 mg/dl Aspartate Amino Transf (AST/SGOT) 18 U/L Alanine Aminotransferase (ALT/SGPT) 15 U/L Alkaline Phosphatase 86 U/L Pro-B-Type Natriuretic Peptide 2903 pg/ml Total Protein 6.7 gm/dl Albumin 2.6 gm/dl Globulin 4.1 gm/dl Albumin/Globulin Ratio 0.6 Venous Blood pH 7.44 Venous Blood Partial Pressure CO2 57 mmHg Venous Blood Partial Pressure O2 42 mmHg Venous Blood HCO3 38 mmol/L Venous Blood Oxygen Saturation 74.9 % Venous Blood Base Excess 12.3 mEq/L Ammonia 19.4 umol/L Bedside Lactic Acid Venous 1.60 mmol/L Test 08/27/17 21:55 08/28/17 06:10 08/28/17 07:15 08/28/17 08:35 Bedside Glucose 264 mg/dl 293 mg/dl White Blood Count 29.95 K/uL Red Blood Count 4.24 M/uL Hemoglobin 8.5 g/dL Hematocrit 29.8 % Mean Corpuscular Volume 70.3 fL Mean Corpuscular Hemoglobin 20.0 pg Mean Corpuscular Hemoglobin Concent 28.5 g/dl Platelet Count 237 K/uL Mean Platelet Volume 9.0 fL Neutrophils (%) (Auto) 89.8 % Lymphocytes (%) (Auto) 4.2 % Monocytes (%) (Auto) 5.6 % Eosinophils (%) (Auto) 0.0 % Basophils (%) (Auto) 0.0 % Neutrophils # (Auto) 26.87 K/uL Lymphocytes # (Auto) 1.27 K/uL Monocytes # (Auto) 1.69 K/uL Eosinophils # (Auto) 0.00 K/uL Basophils # (Auto) 0.01 K/uL RDW Standard Deviation 46.0 fL RDW Coefficient of Variation 18.1 % Immature Granulocyte % (Auto) 0.4 % Immature Granulocyte # (Auto) 0.11 K/uL Microcytosis PRESENT Sodium Level 136 mmol/L Potassium Level 3.6 mmol/L Chloride Level 95 mmol/L Carbon Dioxide Level 36 mmol/L Anion Gap 5.0 mmol/L Blood Urea Nitrogen 50 mg/dl Creatinine 1.98 mg/dl Est Creatinine Clear Calc Drug Dose 41.9 ml/min Estimated GFR () 36.9 Estimated GFR (Non- 31.9 BUN/Creatinine Ratio 25.4 Random Glucose 175 mg/dl Calcium Level 8.1 mg/dl Magnesium Level 2.1 mg/dl Arterial Blood pH 7.43 Arterial Blood Partial Pressure CO2 56 mmHg Arterial Blood Partial Pressure O2 68 mm/Hg Arterial Blood HCO3 36 mmol/L Arterial Blood Oxygen Saturation 91.0 % Arterial Blood Base Excess 11.0 mEq/L Arterial Blood Gas Delivery BIPAP FIO2 35% Khoa Test POS Head CT: No acute intracranial findings Chest x-ray: Suspected mild pulmonary vascular congestion. No evidence of lobar consolidation. EKG: Sinus rhythm with first degree AV block. Prolonged QT. Telemetry reviewed: Sinus rhythm with PACs and PVCs. Assessment & Plan ASSESSMENT/PLAN: 1. Chronic diastolic CHF: His BUN and creatinine were elevated on arrival, and his diuretic therapy is currently on hold. He typically takes PO Lasix 80 mg BID and metolazone 5 mg twice weekly as an outpatient. Would continue to monitor his volume status closely and resume his usual PO diuretic therapy when appropriate. Continue close monitoring of PRP and I's&O's. Check daily weights. Low sodium diet, <2,000 mg daily. 2. Possible atrial fibrillation: Patient was thought to possibly have short runs of atrial fibrillation on telemetry monitoring. The telemetry strips were reviewed and appear consistent with sinus rhythm with PACs as well as PVCs. There is no definite atrial fibrillation identified. Would therefore not initiate an anticoagulant at this time. Continue to monitor on telemetry. His rate has been well controlled overall with low dose beta boyd therapy. 3. Hypertension: BP has been well controlled. Continue current therapy. 4. Dyslipidemia: Continue statin therapy. Thank you for allowing us to see this patient in consultation. The patient was discussed with Dr. Mitchell who will also be in to see the patient later today. ADDENDUM by cardiology attending: Patient was seen and examined. Agree with above with following additions. Patient denies chest pain, shortness of breath, syncope, palpitations. He was found to be agitated and confused at home. His presented to the bedside while I was in the room. She acknowledges that he was confused at home and appeared to be worsening in front of her eyes and therefore she sought medical attention. He was found to be bacteremic, and presumed to have metabolic encephalopathy from infection. Diuretic therapy has been held by primary hospitalist due to his current infection. There was concern that on telemetry there was atrial fibrillation. Telemetry has been reviewed in detail, personally. History, medications, labs, ECG, telemetry reviewed. Exam was notable for: Generally: Alert and oriented x3. No acute distress Neck: No appreciable JVD or hepatic jugular reflux. Cardiac: Regular with ectopy. Normal S1 and S2. No audible murmurs. Lungs: Clear to auscultation bilaterally Abdomen: Nontender, nondistended, soft. Extremities: 1+ bilateral lower extremity edema. Erythema of the distal right lower extremity.No cyanosis. ECG 08/27/17: Sinus rhythm with first-degree block 85 bpm. Prolonged QT. Echo 07/13/2017: Normal LV size and systolic function. EF 65-70%. No significant valvular abnormalities reported. Mild biatrial dilation. ASSESSMENT/PLAN: 1. Abnormal ECG: Telemetry was noted to have irregular rate. Upon careful review, there is no obvious atrial fibrillation. There is significant artifact at times but when there is less artifact, there appears to be P-waves, consistent with sinus rhythm with first-degree AV block. Without definitive atrial fibrillation, would not require anticoagulation for stroke risk reduction at this time. He does have frequent ectopy/PACs. No specific treatment required at this time. 2. Chronic diastolic CHF: It is difficult to know his intravascular volume status. Diuretics were currently on hold by primary service due to worsening renal function in the setting of bacteremia. When he starts to show improvement from an infection standpoint, would have low threshold to resume outpatient diuretic regimen. Low-sodium diet, strict I&Os if possible, and daily weights recommended. 3. Hypertension: Blood pressure adequately controlled. Can continue current regimen. 4. Cellulitis/bacteremia: There is concerns for UTI as the cause of bacteremia and also he has cellulitis. Treatment as per Infectious Disease and primary service. 5. Disposition: Patient care has been discussed with Dr. Youssef, the primary hospitalist service. Please call with any other questions or concerns. Thank you for allowing me to participate in the care of your patient. Please call for any other questions or concerns. Sincerely, Alber Mitchell M.D.
--- NOTE | 2017-08-28 10:54 | Medical Consult ---
Consultation Date of Consultation: Aug 28, 2017. Attending Physician: Radha Youssef M.D. Reason for Consultation: Gram negative bacteremia History of Present Illness 77-year-old male well known to the Infectious Disease service, with morbid obesity, sleep apnea, COPD, BPH, urinary retention, recurrent urinary tract infections, with recent hospitalization with urinary tract infection with Pseudomonas and Enterococcus, reportedly with intermittent Osorio catheterization after discharge, now admitted to the hospital with acute change in mental status with confusion and now reported to have positive blood cultures for gram-negative bacteria. Patient has been started empirically on vancomycin and Zosyn. Mental status has improved somewhat, but still unable to give adequate history. No report of fever prior to his admission. Past Medical/Surgical History Medical Problems: (1) Acute urinary retention Status: Acute (2) Altered mental status Status: Acute (3) Altered mental status Status: Acute (4) Altered mental status Status: Acute (5) Anemia Status: Acute (6) Bronchitis Status: Acute (7) Cellulitis Status: Acute (8) Change in mental status Status: Acute (9) CHF (congestive heart failure) Status: Acute (10) CHF (congestive heart failure) Status: Acute (11) CHF (congestive heart failure) Status: Acute (12) CO2 retention Status: Acute (13) Complication of catheter Status: Acute (14) Congestive heart failure Status: Acute (15) Dystonic drug reaction Status: Acute (16) Failure to thrive Status: Acute (17) Hypercarbia Status: Acute (18) Hypoglycemia Status: Acute (19) Hypokalemia Status: Acute (20) Hypoxemia Status: Acute (21) Hypoxemia Status: Acute (22) Hypoxia Status: Acute (23) Hypoxia Status: Acute (24) Hypoxia Status: Acute (25) Lower abdominal pain Status: Acute (26) Malfunction of Osorio catheter Status: Acute (27) Pneumonia Status: Acute (28) Respiratory acidosis Status: Acute (29) Right flank pain Status: Acute (30) Sepsis Status: Acute (31) Shortness of breath Status: Acute (32) Symptoms involving urinary system Status: Acute (33) Urethral pain Status: Acute (34) Urinary retention Status: Acute (35) Urinary retention Status: Acute (36) Urinary tract infection Status: Acute (37) Urinary tract infection Status: Acute (38) Urinary tract infection Status: Acute (39) UTI (urinary tract infection) Status: Acute (40) UTI (urinary tract infection) Status: Acute (41) UTI (urinary tract infection) Status: Acute (42) UTI (urinary tract infection) Status: Acute (43) UTI (urinary tract infection) due to urinary indwelling catheter Status: Acute (44) Weakness Status: Acute Medical Problems: (1) Acute on chronic diastolic heart failure (2) Acute respiratory failure (3) Anxiety (4) Asthma, cough variant (5) Benign prostatic hyperplasia (6) Depression (7) Diabetes mellitus type 2 (8) Diabetic neuropathy (9) Diastolic heart failure (10) Dyslipidemia (11) Essential hypertension (12) Gastroesophageal reflux disease (13) Legal blindness (14) Morbid obesity (15) Nocturnal hypoxemia (16) Obesity hypoventilation syndrome (17) Peripheral venous insufficiency (18) Sleep apnea (19) UTI (urinary tract infection) Surgical Problems: (1) S/P cataract surgery (2) S/p eyelid surgery (3) S/P foot surgery, left (4) S/P panniculectomy (5) S/P tonsillectomy Family History Diabetes mellitus MOTHER BROTHER GRANDMOTHER FH: CAD (coronary artery disease) FATHER (CABG) FH: CHF (congestive heart failure) MOTHER BROTHER GI disorder Hypertension MOTHER Social History Smoking Status: Former Smoker Drug Use: none Marital Status: Occupation Status: retired Allergies Coded Allergies: Hydromorphone (Verified Adverse Reaction, Severe, DELIRIUM, UNRESPONSIVENESS, 08/01/17) UNRESPONSIVENESS Oxycodone (Verified Adverse Reaction, Unknown, Trouble coming off, 08/01/17 ) Repoted by , NOT ALLERGIC TO THEM Propoxyphene (Verified Adverse Reaction, Unknown, Trouble coming off of Darvocet., 08/01/17) Reported by Current Inpatient Medications Current Inpatient Medications Medications (Trade) Dose Ordered Sig/Bj Route Start Time Stop Time Status Last Admin Dose Admin Heparin Sodium (Porcine) (Heparin Sq 5000 Unit/0.5ml) 5,000 unit Q8 SQ 08/27/17 22:00 09/26/17 21:59 08/27/17 22:43 5,000 UNIT Acetaminophen (Tylenol Tab) 650 mg Q4H PRN PO 08/27/17 20:30 09/26/17 20:29 Al Hydrox/Mg Hydrox/Simethicone (Maalox Max Susp) 15 ml Q4H PRN PO 08/27/17 20:30 09/26/17 20:29 Ondansetron HCl (Zofran Inj) 4 mg Q6H PRN IV 08/27/17 20:30 09/26/17 20:29 Nitroglycerin (Nitrostat Tab) 0.4 mg UD PRN SL 08/27/17 20:30 09/26/17 20:29 Polyethylene (Miralax Powder Packet) 17 gm DAILY PRN PO 08/27/17 20:30 09/26/17 20:29 Ascorbic Acid (Vitamin C Tab) 500 mg DAILY PO 08/28/17 09:00 09/27/17 08:59 08/28/17 09:19 500 MG Aspirin (Ecotrin Tab) 81 mg DAILY PO 08/28/17 09:00 09/27/17 08:59 08/28/17 09:18 81 MG Finasteride (Proscar Tab) 5 mg QAM PO 08/28/17 09:00 09/27/17 08:59 08/28/17 09:18 5 MG Folic Acid (Folvite Tab) 1 mg DAILY PO 08/28/17 09:00 09/27/17 08:59 08/28/17 09:18 1 MG Gabapentin (Neurontin Cap) 300 mg BID PO 08/27/17 21:00 09/26/17 20:59 08/28/17 09:20 300 MG Insulin Glargine (Lantus Solostar Pen) 25 units QPM SQ 08/27/17 21:00 09/26/17 20:59 08/27/17 22:45 25 UNITS Magnesium Oxide (Mag-Ox Tab) 400 mg DAILY PO 08/28/17 09:00 09/27/17 08:59 08/28/17 09:19 400 MG Metoprolol Tartrate (Lopressor Tab) 12.5 mg BID PO 08/27/17 21:00 09/26/17 20:59 08/28/17 09:20 12.5 MG Multivitamins (Multivitamin Tab) 1 tab DAILY PO 08/28/17 09:00 09/27/17 08:59 08/28/17 09:18 1 TAB Nystatin/ Triamcinolone Acetonide (Mycogen II Crm) 1 appln BID EXT 08/27/17 21:00 09/26/17 20:59 08/28/17 09:19 1 APPLN Potassium Chloride (Klor-Con Tab) 20 meq BID PO 08/27/17 21:00 09/26/17 20:59 08/28/17 09:17 20 MEQ Simvastatin (Zocor Tab) 40 mg QPM PO 08/27/17 21:00 09/26/17 20:59 08/27/17 22:26 40 MG Tamsulosin HCl (Flomax Cap) 0.4 mg HS PO 08/27/17 21:00 09/26/17 20:59 08/27/17 22:30 0.4 MG Venlafaxine HCl (effeXOR TAB) 75 mg BID PO 08/27/17 21:00 09/26/17 20:59 08/28/17 09:18 75 MG Calcium/Vitamin D (Caltrate Plus Tab) 1 tab DAILY PO 08/28/17 09:00 09/27/17 08:59 08/28/17 09:18 1 TAB Pantoprazole Sodium (Protonix Tab) 40 mg QAM PO 08/28/17 09:00 09/27/17 08:59 08/28/17 09:19 40 MG Furosemide 40 mg/ Syringe 4 ml @ 4 mls/min BID17 IV 08/27/17 21:00 09/26/17 20:59 Future Hold 08/27/17 22:29 4 MLS/MIN Piperacillin Sod/ Tazobactam Sod 4.5 gm/Dextrose 120 ml @ 30 mls/hr Q8H IV 08/28/17 00:00 09/07/17 00:00 08/28/17 09:16 30 MLS/HR Miscellaneous Information (Consult) 1 ea PRN N/A 08/27/17 20:30 09/26/17 20:29 Vancomycin HCl 1750 mg/Sodium Chloride 535 ml @ 200 mls/hr Q24H IV 08/28/17 17:00 09/07/17 16:59 Miscellaneous Information (Consult) 1 [facility] PRN N/A 08/27/17 20:30 09/26/17 20:29 Insulin Aspart (novoLOG ASPART) SLIDING SCALE G... ACHS SC 08/27/17 21:00 5/17/18 20:59 08/28/17 08:42 8 UNITS Ipratropium [place] (Atrovent 0.02% 0.5MG/2.5ML Neb) 0.5 mg Q4 PRN INH 08/28/17 08:30 09/27/17 08:29 Levalbuterol (Xopenex 1.25MG/ 0.5ML Neb) 1.25 mg Q4 PRN INH 08/28/17 08:30 09/27/17 08:29 Review of Systems Not obtainable because of patient's mental status Physical Exam Date Time Temp Pulse Resp B/P (MAP) Pulse Ox O2 Delivery O2 Flow Rate FiO2 08/28/17 08:00 BiPAP 08/28/17 07:30 89 98 35 08/28/17 07:12 36.4 80 20 112/67 (82) 97 BiPAP 08/28/17 04:49 BiPAP 08/28/17 00:00 BiPAP 08/27/17 23:25 38.2 97 24 129/60 (83) 97 BiPAP 08/27/17 22:40 109 92 35 08/27/17 22:00 93 BiPAP 3.0 30 08/27/17 21:58 37.3 100 20 132/66 (88) 93 Nasal Cannula 3.0 08/27/17 21:27 Nasal Cannula 2.0 08/27/17 21:14 88 24 120/83 92 Nasal Cannula 2.0 08/27/17 21:09 97 24 120/83 90 08/27/17 20:15 97 26 91 Nasal Cannula 2.0 08/27/17 18:32 87 24 125/92 100 Nebulizer 08/27/17 18:28 79 92 30 08/27/17 18:26 80 15 91 BiPAP/CPAP 30 08/27/17 17:47 83 97 30 08/27/17 17:35 84 08/27/17 17:28 37.3 90 28 110/50 91 Nasal Cannula 2.0 08/27/17 17:28 91 Nasal Cannula 2.0 General Appearance: WD/WN, no apparent distress Head: normocephalic, atraumatic Eyes: normal inspection, EOMI, sclerae normal ENT: normal ENT inspection, pharynx normal Neck: supple, no adenopathy, thyroid normal, trachea midline Respiratory/Chest: chest non-tender, no respiratory distress, no accessory muscle use, + rales Cardiovascular: regular rate, rhythm, no gallop, no murmur Abdomen/GI: normal bowel sounds, non tender, soft, no organomegaly Back: normal inspection, no CVA tenderness Extremities/Musculoskelatal: no calf tenderness, + inflammation (LLE), + swelling (LLE) Neurologic/Psych: alert, + pertinent finding (orriented x 2) Skin: normal color, no rash, + pertinent finding (LLE erythema) Lymphatic: no adenopathy Laboratory Results Date/Time Source Procedure Growth Status 08/27/17 18:36 Blood Blood Culture - Preliminary Gram Negative Bacilli Resulted 08/27/17 18:00 Blood Blood Culture - Preliminary Gram Negative Bacilli Resulted 08/28/17 10:04 Nasal MRSA DNA Surveillance Screen Pending Received Last 24 Hours Test 08/27/17 17:34 08/27/17 18:00 08/27/17 18:36 08/27/17 19:01 Bedside Glucose 254 mg/dl White Blood Count 15.14 K/uL Red Blood Count 4.51 M/uL Hemoglobin 9.4 g/dL Hematocrit 31.5 % Mean Corpuscular Volume 69.8 fL Mean Corpuscular Hemoglobin 20.8 pg Mean Corpuscular Hemoglobin Concent 29.8 g/dl Platelet Count 299 K/uL Mean Platelet Volume 9.1 fL Neutrophils (%) (Auto) 86.7 % Lymphocytes (%) (Auto) 5.6 % Monocytes (%) (Auto) 7.1 % Eosinophils (%) (Auto) 0.2 % Basophils (%) (Auto) 0.1 % Neutrophils # (Auto) 13.12 K/uL Lymphocytes # (Auto) 0.85 K/uL Monocytes # (Auto) 1.07 K/uL Eosinophils # (Auto) 0.03 K/uL Basophils # (Auto) 0.02 K/uL RDW Standard Deviation 45.8 fL RDW Coefficient of Variation 17.9 % Immature Granulocyte % (Auto) 0.3 % Immature Granulocyte # (Auto) 0.05 K/uL Hypochromasia PRESENT Microcytosis PRESENT Prothrombin Time 10.8 SECONDS Prothromb Time International Ratio 1.0 Activated Partial Thromboplast Time 28.9 SECONDS Partial Thromboplastin Ratio 1.1 Sodium Level 134 mmol/L Potassium Level 2.9 mmol/L Chloride Level 91 mmol/L Carbon Dioxide Level 36 mmol/L Anion Gap 7.0 mmol/L Blood Urea Nitrogen 47 mg/dl Creatinine 1.67 mg/dl Est Creatinine Clear Calc Drug Dose 50.9 ml/min Estimated GFR () 45.4 Estimated GFR (Non- 39.2 BUN/Creatinine Ratio 28.0 Random Glucose 236 mg/dl Calcium Level 8.4 mg/dl Magnesium Level 2.2 mg/dl Total Bilirubin 0.8 mg/dl Aspartate Amino Transf (AST/SGOT) 18 U/L Alanine Aminotransferase (ALT/SGPT) 15 U/L Alkaline Phosphatase 86 U/L Pro-B-Type Natriuretic Peptide 2903 pg/ml Total Protein 6.7 gm/dl Albumin 2.6 gm/dl Globulin 4.1 gm/dl Albumin/Globulin Ratio 0.6 Venous Blood pH 7.44 Venous Blood Partial Pressure CO2 57 mmHg Venous Blood Partial Pressure O2 42 mmHg Venous Blood HCO3 38 mmol/L Venous Blood Oxygen Saturation 74.9 % Venous Blood Base Excess 12.3 mEq/L Ammonia 19.4 umol/L Bedside Lactic Acid Venous 1.60 mmol/L Test 08/27/17 21:55 08/28/17 06:10 08/28/17 07:15 08/28/17 08:35 Bedside Glucose 264 mg/dl 293 mg/dl White Blood Count 29.95 K/uL Red Blood Count 4.24 M/uL Hemoglobin 8.5 g/dL Hematocrit 29.8 % Mean Corpuscular Volume 70.3 fL Mean Corpuscular Hemoglobin 20.0 pg Mean Corpuscular Hemoglobin Concent 28.5 g/dl Platelet Count 237 K/uL Mean Platelet Volume 9.0 fL Neutrophils (%) (Auto) 89.8 % Lymphocytes (%) (Auto) 4.2 % Monocytes (%) (Auto) 5.6 % Eosinophils (%) (Auto) 0.0 % Basophils (%) (Auto) 0.0 % Neutrophils # (Auto) 26.87 K/uL Lymphocytes # (Auto) 1.27 K/uL Monocytes # (Auto) 1.69 K/uL Eosinophils # (Auto) 0.00 K/uL Basophils # (Auto) 0.01 K/uL RDW Standard Deviation 46.0 fL RDW Coefficient of Variation 18.1 % Immature Granulocyte % (Auto) 0.4 % Immature Granulocyte # (Auto) 0.11 K/uL Microcytosis PRESENT Sodium Level 136 mmol/L Potassium Level 3.6 mmol/L Chloride Level 95 mmol/L Carbon Dioxide Level 36 mmol/L Anion Gap 5.0 mmol/L Blood Urea Nitrogen 50 mg/dl Creatinine 1.98 mg/dl Est Creatinine Clear Calc Drug Dose 41.9 ml/min Estimated GFR () 36.9 Estimated GFR (Non- 31.9 BUN/Creatinine Ratio 25.4 Random Glucose 175 mg/dl Calcium Level 8.1 mg/dl Magnesium Level 2.1 mg/dl Arterial Blood pH 7.43 Arterial Blood Partial Pressure CO2 56 mmHg Arterial Blood Partial Pressure O2 68 mm/Hg Arterial Blood HCO3 36 mmol/L Arterial Blood Oxygen Saturation 91.0 % Arterial Blood Base Excess 11.0 mEq/L Arterial Blood Gas Delivery BIPAP FIO2 35% Khoa Test POS [~ rep ct add3]] CHEST ONE VIEW PORTABLE CLINICAL HISTORY: Sepsis COMPARISON STUDY: 08/01/2017 FINDINGS: The study is significantly limited from a technical standpoint. The patient's chin obscures the upper lung zones. The heart is enlarged. There is mild elevation of the interstitium. Mild pulmonary vascular congestion is suspected. There are low lung volumes. There are no large pleural effusions. There is stable right hilar enlargement. There is possible subluxation of the right shoulder.[ IMPRESSION: 1. Technically limited study 2. Suspected mild pulmonary vascular congestion. 3. No evidence of lobar consolidation. Electronically signed by: Oliverio Kramer M.D. 08/27/2017 6:44 PM Dictated Date/Time: 08/27/2017 6:43 PM The status of this report is Signed. D Assessment & Plan Gram negative bacteremia with encephalopathy, likely from urinary tract source. Also may have LLE cellulitis as well. Will continue present antibiotics pending final culture rresults. Will follow.
[2017-08-28] MEDS ORDERED: PHARMACY GLYCEMIC MGMT CONSULT PRN (14:27)
--- NOTE | 2017-08-28 14:51 | Pharmacy Progress Note ---
Pharmacy Glycemic Short Note 2 Date of Service Aug 28, 2017. OUTPATIENT ANTIDIABETIC REGIMEN: * Lantus 25 units SQ qPM * Novolog 10 units SQ TID with meals * HbA1c: pending w/ am labs (04/29/17: 7.9%) ASSESSMENT: * Mr Bowen is a 77yo diabetic gentleman well-known to the pharmacy glycemic management service from past admissions. * Patient was admitted last evening with cellulitis and altered mental status. * No steroids are ordered during this admission thus far. * Pt is ordered a diabetic diet, which he appears to be tolerating. * Pt has been hyperglycemic since admission, likely d/t infectious process. PLAN FOR INPATIENT GLYCEMIC CONTROL: * Basal insulin * Lantus 25 units SQ qPM * Bolus insulin -- tighten parameters * NovoLog per scale ACHS or Q6hrs while NPO * Goal Range: Low 110 mg/dL - High 140 mg/dL * Correction Factor: 25 mg/dL/unit * Nutritional / Prandial insulin per carb ratio of 1 unit per 8 grams CHO consumed PLAN FOR DISCHARGE: * pending current A1c w/ tomorrow's labs
[2017-08-28 15:18] VITALS: BMI 39.2
[2017-08-28 16:40] VITALS: BP 98/44; PULSE 83; TEMP 37.2; O2SAT 92
--- NOTE | 2017-08-28 16:54 | Progress Note ---
Internal Med Progress Note Date of Service: Aug 28, 2017. Provider Documentation: SUBJECTIVE: Patient remains confused, lethargic Able to open eyes with voice ,follows simple commands Trying to get out of bed ordered for bed alarm present at bedside OBJECTIVE: Vital Signs-as noted below Exam: General-obese, confused Eyes-sclera nonicteric, pupils reactive to light ENT-moist oral mucosa Neck-no JVD noted Lungs-positive rales at bilateral bases Heart-regular S1-S2 Abdomen-obese nontender, soft Extremities-right lower extremity: Positive erythema/increased warmth/tenderness Chronic venous stasis changes noted on the left, no evidence of inflammation or infection Neuro-confused, lethargic, oriented to person only, no focal neurological deficit noted Lab data as noted below. ASSESSMENT & PLAN: SEVERE SEPSIS/GRAM-NEGATIVE BACTEREMIA: Meets criteria, Patient presented with fever/ leukocytosis/tachycardia/tachypnea/hypotension/ acute renal failure/confusion Possible source of infection: UTI/right lower extremity cellulitis Patient started with empiric broad-spectrum antibiotic with IV vancomycin/Zosyn Prior history of Pseudomonas and enterococcus urinary tract infection Ordered for UA and culture Patient is incontinent and confused to provide a clean-catch urine Unable to to put a Osorio catheter or straight cath by nursing due to history of BPH ID eval requested-appreciate input from Dr. Martinez recommend to continue with IV vancomycin and Zosyn Lab work shows worsening of leukocytosis from 15 K to 29.9K On IV vancomycin and Zosyn Continue to monitor in telemetry, low threshold to transfer to ICU if patient becomes hemodynamically unstable Repeat blood cultures ordered in a.m. HYPOXEMIA/RESPIRATORY DISTRESS: Next possible due to combination of decompensated CHF with diastolic dysfunction /CO2 retention in the setting of confusion and lethargy Patient was placed on BiPAP overnight At present on oxygen via nasal cannula Continue broad-spectrum antibiotic as above Ordered for neb treatment ACUTE ON CHRONIC DIASTOLIC CONGESTIVE HEART FAILURE Very hard to assess volume status due to patient's body habitus In the setting of severe sepsis-risk of intravascular volume depletion remains high Outpatient Lasix and Zaroxolyn kept on hold . Echo done in July 2017, ejection fraction was normal, grossly normal ejection fraction and valvular function. Plan of care discussed with cardiology In agreement to hold diuretics in the setting of severe sepsis /RENEA Per cardiology diarrheic discussed food be resumed as soon as possible when patient clinically improves RENEA ON CKD STAGE III Due to severe sepsis/infection Continue to hold diuretics IV hydration not ordered secondary to acute diastolic CHF Continue to monitor vitals and volume status avoid nephrotoxins /Contrast study BPH History of chronic urinary retention due to BPH On Proscar and Flomax Follows with urology Dr. Hameed Patient was on chronic Osorio was discontinued After discharge from rehab at [facility] a week ago Urology recommended intermediates straight cath Patient is unable to do self straight cath Concern for urinary retention causing recurrent UTI Osorio could not be placed by nursing bedside Urology eval requested CONFUSION/METABOLIC ENCEPHALOPATHY Due to severe sepsis/acute renal failure Continue treatment as outlined above Part of life patient has mild improvement as he can recognize and sounding Continue to monitor High fall risk, ordered bed alarm, low boy bed Consider one-to-one observation in setting of agitation/worsening of confusion/ sundowning CARDIAC ARRHYTHMIA NOTED ON MONITOR Appreciate input from cardiology No evidence of A. fib noted Patient had frequent PAC/PVC possible secondary to sepsis/acute renal failure No cardiac intervention indicated Cardiology recommends to correct underlying cause TYPE 2 DIABETES: Blood sugar elevated secondary to severe sepsis Continue Lantus Insulin sliding scale Pharmacy consulted for glycemic management OBSTRUCTIVE SLEEP APNEA Continue BiPAP at night HYPERTENSION At present hypotensive secondary to severe sepsis Diuretics on hold On Lopressor with holding parameters Will consider IV fluid bolus if hemodynamic instability noted due to severe sepsis SACRAL DECUBITUS ULCER STAGE I TO II. Present on admission Appreciate wound care consult. CODE STATUS: Full code DVT PROPHYLAXIS Moderate to high risk Subcu heparin DISPOSITION To be determined Presents with significant deconditioning/confusion/severe sepsis PT OT evaluation requested Was recently at [facility] for rehab, per patient had significant benefit May need rehab when medically stable Social service consulted for discharge planning Vital Signs: Date Time Temp Pulse Resp B/P (MAP) Pulse Ox O2 Delivery O2 Flow Rate FiO2 08/28/17 16:40 37.2 83 17 98/44 (62) 92 Nasal Cannula 4.0 08/28/17 08:00 BiPAP 08/28/17 07:30 89 98 35 08/28/17 07:12 36.4 80 20 112/67 (82) 97 BiPAP 08/28/17 04:49 BiPAP 08/28/17 00:00 BiPAP 08/27/17 23:25 38.2 97 24 129/60 (83) 97 BiPAP 4/17/18 22:40 109 92 35 08/27/17 22:00 93 BiPAP 3.0 30 08/27/17 21:58 37.3 100 20 132/66 (88) 93 Nasal Cannula 3.0 08/27/17 21:27 Nasal Cannula 2.0 08/27/17 21:14 88 24 120/83 92 Nasal Cannula 2.0 08/27/17 21:09 97 24 120/83 90 08/27/17 20:15 97 26 91 Nasal Cannula 2.0 08/27/17 18:32 87 24 125/92 100 Nebulizer 08/27/17 18:28 79 92 30 08/27/17 18:26 80 15 91 BiPAP/CPAP 30 08/27/17 17:47 83 97 30 08/27/17 17:35 84 08/27/17 17:28 37.3 90 28 110/50 91 Nasal Cannula 2.0 08/27/17 17:28 91 Nasal Cannula 2.0 Lab Results: Results Past 24 Hours Test 08/27/17 17:34 08/27/17 18:00 08/27/17 18:36 08/27/17 19:01 Range/Units Bedside Glucose 254 70-99 mg/dl White Blood Count 15.14 4.8-10.8 K/uL Red Blood Count 4.51 4.7-6.1 M/uL Hemoglobin 9.4 14.0-18.0 g/dL Hematocrit 31.5 42-52 % Mean Corpuscular Volume 69.8 80-100 fL Mean Corpuscular Hemoglobin 20.8 25-34 pg Mean Corpuscular Hemoglobin Concent 29.8 32-36 g/dl Platelet Count 299 130-400 K/uL Mean Platelet Volume 9.1 7.4-10.4 fL Neutrophils (%) (Auto) 86.7 % Lymphocytes (%) (Auto) 5.6 % Monocytes (%) (Auto) 7.1 % Eosinophils (%) (Auto) 0.2 % Basophils (%) (Auto) 0.1 % Neutrophils # (Auto) 13.12 1.4-6.5 K/uL Lymphocytes # (Auto) 0.85 1.2-3.4 K/uL Monocytes # (Auto) 1.07 0.11-0.59 K/uL Eosinophils # (Auto) 0.03 0-0.5 K/uL Basophils # (Auto) 0.02 0-0.2 K/uL RDW Standard Deviation 45.8 36.4-46.3 fL RDW Coefficient of Variation 17.9 11.5-14.5 % Immature Granulocyte % (Auto) 0.3 % Immature Granulocyte # (Auto) 0.05 0.00-0.02 K/uL Hypochromasia PRESENT Microcytosis PRESENT Prothrombin Time 10.8 9.0-12.0 SECONDS Prothromb Time International Ratio 1.0 0.9-1.1 Activated Partial Thromboplast Time 28.9 21.0-31.0 SECONDS Partial Thromboplastin Ratio 1.1 Sodium Level 134 136-145 mmol/L Potassium Level 2.9 3.5-5.1 mmol/L Chloride Level 91 98-107 mmol/L Carbon Dioxide Level 36 21-32 mmol/L Anion Gap 7.0 3-11 mmol/L Blood Urea Nitrogen 47 7-18 mg/dl Creatinine 1.67 0.60-1.40 mg/dl Est Creatinine Clear Calc Drug Dose 50.9 ml/min Estimated GFR () 45.4 Estimated GFR (Non- 39.2 BUN/Creatinine Ratio 28.0 10-20 Random Glucose 236 70-99 mg/dl Calcium Level 8.4 8.5-10.1 mg/dl Magnesium Level 2.2 1.8-2.4 mg/dl Total Bilirubin 0.8 0.2-1 mg/dl Aspartate Amino Transf (AST/SGOT) 18 15-37 U/L Alanine Aminotransferase (ALT/SGPT) 15 12-78 U/L Alkaline Phosphatase 86 45-117 U/L Pro-B-Type Natriuretic Peptide 2903 0-1800 pg/ml Total Protein 6.7 6.4-8.2 gm/dl Albumin 2.6 3.4-5.0 gm/dl Globulin 4.1 2.5-4.0 gm/dl Albumin/Globulin Ratio 0.6 0.9-2 Venous Blood pH 7.44 7.36-7.41 Venous Blood Partial Pressure CO2 57 38.0-50.0 mmHg Venous Blood Partial Pressure O2 42 mmHg Venous Blood HCO3 38 mmol/L Venous Blood Oxygen Saturation 74.9 % Venous Blood Base Excess 12.3 mEq/L Ammonia 19.4 11-32 umol/L Bedside Lactic Acid Venous 1.60 0.90-1.70 mmol/L Test 08/27/17 21:55 08/28/17 06:10 08/28/17 07:15 08/28/17 08:35 Range/Units Bedside Glucose 264 293 70-99 mg/dl White Blood Count 29.95 4.8-10.8 K/uL Red Blood Count 4.24 4.7-6.1 M/uL Hemoglobin 8.5 14.0-18.0 g/dL Hematocrit 29.8 42-52 % Mean Corpuscular Volume 70.3 80-100 fL Mean Corpuscular Hemoglobin 20.0 25-34 pg Mean Corpuscular Hemoglobin Concent 28.5 32-36 g/dl Platelet Count 237 130-400 K/uL Mean Platelet Volume 9.0 7.4-10.4 fL Neutrophils (%) (Auto) 89.8 % Lymphocytes (%) (Auto) 4.2 % Monocytes (%) (Auto) 5.6 % Eosinophils (%) (Auto) 0.0 % Basophils (%) (Auto) 0.0 % Neutrophils # (Auto) 26.87 1.4-6.5 K/uL Lymphocytes # (Auto) 1.27 1.2-3.4 K/uL Monocytes # (Auto) 1.69 0.11-0.59 K/uL Eosinophils # (Auto) 0.00 0-0.5 K/uL Basophils # (Auto) 0.01 0-0.2 K/uL RDW Standard Deviation 46.0 36.4-46.3 fL RDW Coefficient of Variation 18.1 11.5-14.5 % Immature Granulocyte % (Auto) 0.4 % Immature Granulocyte # (Auto) 0.11 0.00-0.02 K/uL Microcytosis PRESENT Sodium Level 136 136-145 mmol/L Potassium Level 3.6 3.5-5.1 mmol/L Chloride Level 95 98-107 mmol/L Carbon Dioxide Level 36 21-32 mmol/L Anion Gap 5.0 3-11 mmol/L Blood Urea Nitrogen 50 7-18 mg/dl Creatinine 1.98 0.60-1.40 mg/dl Est Creatinine Clear Calc Drug Dose 41.9 ml/min Estimated GFR () 36.9 Estimated GFR (Non- 31.9 BUN/Creatinine Ratio 25.4 10-20 Random Glucose 175 70-99 mg/dl Calcium Level 8.1 8.5-10.1 mg/dl Magnesium Level 2.1 1.8-2.4 mg/dl Arterial Blood pH 7.43 7.35-7.45 Arterial Blood Partial Pressure CO2 56 35-46 mmHg Arterial Blood Partial Pressure O2 68 80-95 mm/Hg Arterial Blood HCO3 36 19-24 mmol/L Arterial Blood Oxygen Saturation 91.0 90-95 % Arterial Blood Base Excess 11.0 -9-1.8 mEq/L Arterial Blood Gas Delivery BIPAP FIO2 35% Khoa Test POS POS Test 08/28/17 11:28 08/28/17 13:25 08/28/17 16:28 Range/Units Bedside Glucose 187 212 124 70-99 mg/dl Microbiology Results 08/27/17 Blood Culture - Preliminary, Resulted Gram Negative Bacilli 08/27/17 Blood Culture - Preliminary, Resulted Gram Negative Bacilli 08/28/17 MRSA DNA Surveillance Screen - Final, Complete Specimen Positive for MRSA by DNA Probe
[2017-08-28] MEDS ORDERED: VANCOMYCIN IV 1,750 MG in SODIUM CHLORIDE 0.9% 500ML 500 ML IV SCH (17:00)
[2017-08-28 18:00] VITALS: BP 106/53
[2017-08-28 19:30] VITALS: BP 117/58; PULSE 89; TEMP 37; O2SAT 95
[2017-08-28] MEDS: ACETAMINOPHEN 325 MG TAB PO PRN (19:55)
[2017-08-28] MEDS: SIMVASTATIN 40 MG TAB PO SCH (19:57)
[2017-08-28] MEDS: TAMSULOSIN HCL 0.4 MG CAP PO SCH (20:03)
[2017-08-28] MEDS: INSULIN GLARGINE SOLOSTAR 100 UNITS/ML 3 ML PEN SQ SCH (20:07)
[2017-08-28 23:45] VITALS: BP 108/63; PULSE 75; TEMP 36.8; O2SAT 98
[2017-08-29] VITALS (12 sets, daily range): BP systolic 100–149; BP diastolic 57–74; PULSE 71–95; TEMP 36.5–38.1; O2SAT 91–98; Ht 177.8 cm; Wt 105.0 kg
[2017-08-29] MEDS: PIPERACILL/TAZOBAC IV 4.5 GM in DEXTROSE 5% 100ML 100 ML IV SCH ×3 (01:06→16:20)
[2017-08-29] MEDS: HEPARIN SOD 5000 UNIT/0.5 ML CARP SQ SCH ×3 (05:51→21:42)
[2017-08-29 08:19] LABS: HEMATOCRIT 31.2 % (42-52); HEMOGLOBIN 8.8 g/dL (14.0-18.0); MEAN CELL VOLUME 72.6 fL (80-100); MEAN CORPUSCULAR HEMOGLOBIN 20.5 pg (25-34); MEAN CORPUSCULAR HGB CONC 28.2 g/dl (32-36); MEAN PLATELET VOLUME 9.5 fL (7.4-10.4); PLATELET COUNT 211 K/uL (130-400); RED CELL DISTRIBUTION WIDTH CV 18.2 % (11.5-14.5); RED CELL DISTRIBUTION WIDTH SD 48.4 fL (36.4-46.3); WHITE BLOOD COUNT 16.68 K/uL (4.8-10.8)
[2017-08-29] MEDS: INSULIN ASPART 100 UNITS/ML 3 ML PEN SC SCH ×4 (08:24→21:00)
[2017-08-29 08:35] LABS: ALBUMIN 2.4 gm/dl (3.4-5.0); CALCIUM 8.5 mg/dl (8.5-10.1); CREATININE 2.35 mg/dl (0.60-1.40); POTASSIUM 3.7 mmol/L (3.5-5.1)
[2017-08-29 08:38] LABS: TOTAL PROTEIN 6.8 gm/dl (6.4-8.2)
[2017-08-29 08:42] LABS: HEMOGLOBIN A1C 9.1 % (4.5-5.6)
[2017-08-29] MEDS: CALCIUM 600MG + VIT D 400 IU TAB PO SCH (09:00)
[2017-08-29] MEDS: PANTOprazole SOD 40 MG TAB PO SCH (09:00)
[2017-08-29] MEDS: VENLAFAXINE HCL 37.5 MG TAB PO SCH ×2 (09:00→21:00)
[2017-08-29] MEDS: MULTIVITAMIN TAB PO SCH (09:00)
[2017-08-29] MEDS: GABAPENTIN 300 MG CAP PO SCH ×2 (09:00→21:00)
[2017-08-29] MEDS: ASCORBIC ACID 500 MG TAB PO SCH (09:00)
[2017-08-29] MEDS: FINASTERIDE 5 MG TAB PO SCH (09:00)
[2017-08-29] MEDS: MAGNESIUM OXIDE 400 MG TAB PO SCH (09:00)
[2017-08-29] MEDS: ASPIRIN 81 MG ECTAB PO SCH (09:00)
[2017-08-29] MEDS: METOPROLOL TARTRATE 25 MG TAB PO SCH ×2 (09:00→21:00)
[2017-08-29 09:04] LABS: EOS % 0.1 %; EOS ABS # 0.01 K/uL (0-0.5); IG# 0.04 K/uL (0.00-0.02); LYMPH ABS # 0.66 K/uL (1.2-3.4); MONO % 4.8 %; NEUT % 90.9 %; NEUT ABS # 15.17 K/uL (1.4-6.5)
--- NOTE | 2017-08-29 09:16 | Procedure Note ---
Procedure Note Date of Service Aug 29, 2017. Procedure Note Called for inability to place rodriguez, need for I&Os. Patient disoriented, agitated. Attempted at placing 18 coude - firm resistance in proximal bulbar urethra without blood in eyelet - c/w stricture. Downsized with inability to pass strictured area until 12 fr rodriguez - able to pass with return of small amounts of clear urine. 10 cc in balloon, catheter to gravity drainage. Would restrain and monitor patient to avoid traumatic self-discontinuation of rodriguez. If it comes out, leave out. See full consult for further details.
[2017-08-29] MEDS ORDERED: HALOPERIDOL LACTATE 5 MG/ML 1 ML VIAL IM STA (09:18)
--- NOTE | 2017-08-29 09:25 | Progress Note ---
Internal Med Progress Note Date of Service: Aug 29, 2017. Provider Documentation: SUBJECTIVE: Patient remains confused, lethargic Able to open eyes with voice ,follows simple commands Trying to get out of bed ordered for bed alarm present at bedside OBJECTIVE: Vital Signs-as noted below Exam: General-obese, confused Eyes-sclera nonicteric, pupils reactive to light ENT-moist oral mucosa Neck-no JVD noted Lungs-positive rales at bilateral bases Heart-regular S1-S2 Abdomen-obese nontender, soft Extremities-right lower extremity: Positive erythema/increased warmth/tenderness Chronic venous stasis changes noted on the left, no evidence of inflammation or infection Neuro-confused, lethargic, oriented to person only, no focal neurological deficit noted Lab data as noted below. ASSESSMENT & PLAN: SEVERE SEPSIS/GRAM-NEGATIVE BACTEREMIA: Meets criteria, Patient presented with fever/ leukocytosis/tachycardia/tachypnea/hypotension/ acute renal failure/confusion Possible source of infection: UTI/right lower extremity cellulitis Patient started with empiric broad-spectrum antibiotic with IV vancomycin/Zosyn Prior history of Pseudomonas and enterococcus urinary tract infection Ordered for UA and culture Patient is incontinent and confused to provide a clean-catch urine Unable to to put a Osorio catheter or straight cath by nursing due to history of BPH ID eval requested-appreciate input from Dr. Martinez recommend to continue with IV vancomycin and Zosyn Lab work shows worsening of leukocytosis from 15 K to 29.9K On IV vancomycin and Zosyn Continue to monitor in telemetry, low threshold to transfer to ICU if patient becomes hemodynamically unstable Repeat blood cultures ordered in a.m. HYPOXEMIA/RESPIRATORY DISTRESS: Next possible due to combination of decompensated CHF with diastolic dysfunction /CO2 retention in the setting of confusion and lethargy Patient was placed on BiPAP overnight At present on oxygen via nasal cannula Continue broad-spectrum antibiotic as above Ordered for neb treatment ACUTE ON CHRONIC DIASTOLIC CONGESTIVE HEART FAILURE Very hard to assess volume status due to patient's body habitus In the setting of severe sepsis-risk of intravascular volume depletion remains high Outpatient Lasix and Zaroxolyn kept on hold . Echo done in July 2017, ejection fraction was normal, grossly normal ejection fraction and valvular function. Plan of care discussed with cardiology In agreement to hold diuretics in the setting of severe sepsis /RENEA Per cardiology diarrheic discussed food be resumed as soon as possible when patient clinically improves RENEA ON CKD STAGE III Due to severe sepsis/infection Continue to hold diuretics IV hydration not ordered secondary to acute diastolic CHF Continue to monitor vitals and volume status avoid nephrotoxins /Contrast study BPH History of chronic urinary retention due to BPH On Proscar and Flomax Follows with urology Dr. Hameed Patient was on chronic Osorio was discontinued After discharge from rehab at [facility] a week ago Urology recommended intermediates straight cath Patient is unable to do self straight cath Concern for urinary retention causing recurrent UTI Osorio could not be placed by nursing bedside Urology eval requested CONFUSION/METABOLIC ENCEPHALOPATHY Due to severe sepsis/acute renal failure Continue treatment as outlined above Part of life patient has mild improvement as he can recognize and sounding Continue to monitor High fall risk, ordered bed alarm, low boy bed Consider one-to-one observation in setting of agitation/worsening of confusion/ sundowning CARDIAC ARRHYTHMIA NOTED ON MONITOR Appreciate input from cardiology No evidence of A. fib noted Patient had frequent PAC/PVC possible secondary to sepsis/acute renal failure No cardiac intervention indicated Cardiology recommends to correct underlying cause TYPE 2 DIABETES: Blood sugar elevated secondary to severe sepsis Continue Lantus Insulin sliding scale Pharmacy consulted for glycemic management OBSTRUCTIVE SLEEP APNEA Continue BiPAP at night HYPERTENSION SBP in 104 cont to monitor closely At present hypotensive secondary to severe sepsis Diuretics on hold On Lopressor with holding parameters Will consider IV fluid bolus if hemodynamic instability noted due to severe sepsis SACRAL DECUBITUS ULCER STAGE I TO II. Present on admission Appreciate wound care consult. CODE STATUS: Full code DVT PROPHYLAXIS Moderate to high risk SubQ heparin DISPOSITION To be determined Presents with significant deconditioning/confusion/severe sepsis PT OT evaluation requested Was recently at [facility] for rehab, per patient had significant benefit May need rehab when medically stable Social service consulted for discharge planning called Mrs Cherie Bowen -left message -updated regarding pt's worsening of confusion /agitation Vital Signs: Date Time Temp Pulse Resp B/P (MAP) Pulse Ox O2 Delivery O2 Flow Rate FiO2 08/29/17 07:40 37.7 95 20 104/71 (82) 93 4.0 08/29/17 04:00 Nasal Cannula 4.0 08/29/17 03:45 37.3 83 25 100/74 (83) 94 Nasal Cannula 4.0 08/29/17 00:00 Nasal Cannula 4.0 08/28/17 23:45 36.8 75 23 108/63 (78) 98 Nasal Cannula 3.0 08/28/17 20:00 Nasal Cannula 4.0 08/28/17 19:30 37.0 89 20 117/58 (77) 95 08/28/17 18:00 106/53 (70) 08/28/17 16:40 37.2 83 17 98/44 (62) 92 Nasal Cannula 4.0 08/28/17 16:00 Nasal Cannula 4.0 Lab Results: Results Past 24 Hours Test 08/28/17 11:28 08/28/17 13:25 08/28/17 16:28 08/28/17 17:38 Range/Units Bedside Glucose 187 212 124 70-99 mg/dl Lactic Acid Level 1.0 0.4-2.0 mmol/L Procalcitonin 13.21 0-0.5 ng/ml Test 08/28/17 20:00 08/29/17 07:03 08/29/17 07:42 08/29/17 09:16 Range/Units Bedside Glucose 169 71 70-99 mg/dl White Blood Count 16.68 4.8-10.8 K/uL Red Blood Count 4.30 4.7-6.1 M/uL Hemoglobin 8.8 14.0-18.0 g/dL Hematocrit 31.2 42-52 % Mean Corpuscular Volume 72.6 80-100 fL Mean Corpuscular Hemoglobin 20.5 25-34 pg Mean Corpuscular Hemoglobin Concent 28.2 32-36 g/dl Platelet Count 211 130-400 K/uL Mean Platelet Volume 9.5 7.4-10.4 fL Neutrophils (%) (Auto) 90.9 % Lymphocytes (%) (Auto) 4.0 % Monocytes (%) (Auto) 4.8 % Eosinophils (%) (Auto) 0.1 % Basophils (%) (Auto) 0.0 % Neutrophils # (Auto) 15.17 1.4-6.5 K/uL Lymphocytes # (Auto) 0.66 1.2-3.4 K/uL Monocytes # (Auto) 0.80 0.11-0.59 K/uL Eosinophils # (Auto) 0.01 0-0.5 K/uL Basophils # (Auto) 0.00 0-0.2 K/uL RDW Standard Deviation 48.4 36.4-46.3 fL RDW Coefficient of Variation 18.2 11.5-14.5 % Immature Granulocyte % (Auto) 0.2 % Immature Granulocyte # (Auto) 0.04 0.00-0.02 K/uL Hypochromasia PRESENT Microcytosis PRESENT Sodium Level 137 136-145 mmol/L Potassium Level 3.7 3.5-5.1 mmol/L Chloride Level 95 98-107 mmol/L Carbon Dioxide Level 35 21-32 mmol/L Anion Gap 7.0 3-11 mmol/L Blood Urea Nitrogen 60 7-18 mg/dl Creatinine 2.35 0.60-1.40 mg/dl Est Creatinine Clear Calc Drug Dose 34.3 ml/min Estimated GFR () 30.0 Estimated GFR (Non- 25.9 BUN/Creatinine Ratio 25.6 10-20 Random Glucose 73 70-99 mg/dl Estimated Average Glucose 214 mg/dl Hemoglobin A1c 9.1 4.5-5.6 % Lactic Acid Level 1.5 0.4-2.0 mmol/L Calcium Level 8.5 8.5-10.1 mg/dl Magnesium Level 2.5 1.8-2.4 mg/dl Total Bilirubin 0.6 0.2-1 mg/dl Direct Bilirubin 0.3 0-0.2 mg/dl Aspartate Amino Transf (AST/SGOT) 34 15-37 U/L Alanine Aminotransferase (ALT/SGPT) 20 12-78 U/L Alkaline Phosphatase 84 45-117 U/L Total Protein 6.8 6.4-8.2 gm/dl Albumin 2.4 3.4-5.0 gm/dl Procalcitonin 10.51 0-0.5 ng/ml Microbiology Results 08/29/17 Blood Culture, Received Pending 08/29/17 Blood Culture, Received Pending 08/28/17 MRSA DNA Surveillance Screen - Final, Complete Specimen Positive for MRSA by DNA Probe
--- NOTE | 2017-08-29 09:56 | Urology Consultation ---
History General Date of Service: Aug 29, 2017. Chief Complaint: unable to place rodriguez catheter, chronic retention Primary Care Physician: Syed Valdivia D.O. Pt seen a urologist before?: Yes (Dr. Hameed ) If yes, why?: urinary retention History of Present Illness 77 yo male admitted for AMS, encephalopathy. consulted for urinary retention and rodriguez placement. Failed attempts by nursing staff to place rodriguez. The pt has a hx of BPH, recurrent UTI, and chronic rodriguez for which he has seen Dr. Hameed in the past. Last seen by myself in the office in February 2016. Previously failed attempts at [facility]. Pt currently confused and agitated screaming out. Unable to provide PMH for himself. Laboratory Last 24 Hours Test 08/28/17 11:28 08/28/17 13:25 08/28/17 16:28 08/28/17 17:38 Bedside Glucose 187 mg/dl 212 mg/dl 124 mg/dl Lactic Acid Level 1.0 mmol/L Procalcitonin 13.21 ng/ml Test 08/28/17 20:00 08/29/17 07:03 08/29/17 07:42 08/29/17 09:16 Bedside Glucose 169 mg/dl 71 mg/dl White Blood Count 16.68 K/uL Red Blood Count 4.30 M/uL Hemoglobin 8.8 g/dL Hematocrit 31.2 % Mean Corpuscular Volume 72.6 fL Mean Corpuscular Hemoglobin 20.5 pg Mean Corpuscular Hemoglobin Concent 28.2 g/dl Platelet Count 211 K/uL Mean Platelet Volume 9.5 fL Neutrophils (%) (Auto) 90.9 % Lymphocytes (%) (Auto) 4.0 % Monocytes (%) (Auto) 4.8 % Eosinophils (%) (Auto) 0.1 % Basophils (%) (Auto) 0.0 % Neutrophils # (Auto) 15.17 K/uL Lymphocytes # (Auto) 0.66 K/uL Monocytes # (Auto) 0.80 K/uL Eosinophils # (Auto) 0.01 K/uL Basophils # (Auto) 0.00 K/uL RDW Standard Deviation 48.4 fL RDW Coefficient of Variation 18.2 % Immature Granulocyte % (Auto) 0.2 % Immature Granulocyte # (Auto) 0.04 K/uL Hypochromasia PRESENT Microcytosis PRESENT Sodium Level 137 mmol/L Potassium Level 3.7 mmol/L Chloride Level 95 mmol/L Carbon Dioxide Level 35 mmol/L Anion Gap 7.0 mmol/L Blood Urea Nitrogen 60 mg/dl Creatinine 2.35 mg/dl Est Creatinine Clear Calc Drug Dose 34.3 ml/min Estimated GFR () 30.0 Estimated GFR (Non- 25.9 BUN/Creatinine Ratio 25.6 Random Glucose 73 mg/dl Estimated Average Glucose 214 mg/dl Hemoglobin A1c 9.1 % Lactic Acid Level 1.5 mmol/L Calcium Level 8.5 mg/dl Magnesium Level 2.5 mg/dl Total Bilirubin 0.6 mg/dl Direct Bilirubin 0.3 mg/dl Aspartate Amino Transf (AST/SGOT) 34 U/L Alanine Aminotransferase (ALT/SGPT) 20 U/L Alkaline Phosphatase 84 U/L Total Protein 6.8 gm/dl Albumin 2.4 gm/dl Procalcitonin 10.51 ng/ml Problem List Medical Problems: (1) Acute urinary retention Status: Acute (2) Altered mental status Status: Acute (3) Altered mental status Status: Acute (4) Altered mental status Status: Acute (5) Anemia Status: Acute (6) Bronchitis Status: Acute (7) Cellulitis Status: Acute (8) Change in mental status Status: Acute (9) CHF (congestive heart failure) Status: Acute (10) CHF (congestive heart failure) Status: Acute (11) CHF (congestive heart failure) Status: Acute (12) CO2 retention Status: Acute (13) Complication of catheter Status: Acute (14) Congestive heart failure Status: Acute (15) Dystonic drug reaction Status: Acute (16) Failure to thrive Status: Acute (17) Hypercarbia Status: Acute (18) Hypoglycemia Status: Acute (19) Hypokalemia Status: Acute (20) Hypoxemia Status: Acute (21) Hypoxemia Status: Acute (22) Hypoxia Status: Acute (23) Hypoxia Status: Acute (24) Hypoxia Status: Acute (25) Lower abdominal pain Status: Acute (26) Malfunction of Rodriguez catheter Status: Acute (27) Pneumonia Status: Acute (28) Respiratory acidosis Status: Acute (29) Right flank pain Status: Acute (30) Sepsis Status: Acute (31) Shortness of breath Status: Acute (32) Symptoms involving urinary system Status: Acute (33) Urethral pain Status: Acute (34) Urinary retention Status: Acute (35) Urinary retention Status: Acute (36) Urinary tract infection Status: Acute (37) Urinary tract infection Status: Acute (38) Urinary tract infection Status: Acute (39) UTI (urinary tract infection) Status: Acute (40) UTI (urinary tract infection) Status: Acute (41) UTI (urinary tract infection) Status: Acute (42) UTI (urinary tract infection) Status: Acute (43) UTI (urinary tract infection) due to urinary indwelling catheter Status: Acute (44) Weakness Status: Acute Past History BPH, congestive heart failure (diastolic ), COPD, depression, diabetes, GERD, heart disease, high cholesterol, radiation treatment, urinary tract infection, vascular disease, other (morbid obesity, obstructive sleep apnea ) Past Surgical History: tonsillectomy, other (abdominoplasty cataract surgery ) Family History Diabetes mellitus MOTHER BROTHER GRANDMOTHER FH: CAD (coronary artery disease) FATHER (CABG) FH: CHF (congestive heart failure) MOTHER BROTHER GI disorder Hypertension MOTHER Social History Hx Tobacco Use In Past Year?: No Smoking: quit greater than 1 year (quit in 2004; previously smoked 1/3 packs a day for 30 years ) Alcohol: never Drug use: none Marital status: Housing status: lives with significant other Occupation status: retired Immunizations History of Influenza Vaccine: Yes Influenza Vaccine Date: Jan 23, 2017 History of Tetanus Vaccine?: Yes Tetanus Immunization Date: Jun 02, 2013 History of Pneumococcal: Yes Pneumococcal Date: Aug 31, 2015 History of Hepatitis B Vaccine: Unknown History of MDRO Yes Type of MDRO: VRE, MRSA Allergies Coded Allergies: Hydromorphone (Verified Adverse Reaction, Severe, DELIRIUM, UNRESPONSIVENESS, 08/01/17) UNRESPONSIVENESS Oxycodone (Verified Adverse Reaction, Unknown, Trouble coming off, 08/01/17 ) Repoted by , NOT ALLERGIC TO THEM Propoxyphene (Verified Adverse Reaction, Unknown, Trouble coming off of Darvocet., 08/01/17) Reported by Medications Home Medications: Home Meds and Scripts Medications Dose Route/Sig Max Daily Dose Days Date Category Dose Instructions Lasix (Furosemide) 80 Mg Tab 80 Mg PO BID 07/12/17 Reported Vitamin C (Ascorbic Acid) 500 Mg Tab 1 Tab PO DAILY 07/12/17 Reported Calcium Citrate + D3 Max 315-250 mg-Unit (Calcium Citrate-Vitamin D) 1 Tab Tab 1 Tab PO DAILY 07/12/17 Reported Tylenol (Acetaminophen) 325 Mg Tab 325 Mg PO Q6 PRN 07/12/17 Reported Zocor (Simvastatin) 80 Mg Tab 40 Mg PO QPM 04/28/17 Reported Lantus Solostar (Insulin Glargine) 100 Unit/Ml Inj 25 Units SQ QPM 04/11/17 Reported Novolog Flexpen (Insulin Aspart) 100 Units/Ml Inj 10 Units SQ TIDM 04/11/17 Reported PLUS SLIDING SCALE Gabapentin 300 Mg Cap 300 Mg PO BID 15 02/19/17 Rx Folvite (Folic Acid) 1 Mg Tab 1 Mg PO DAILY 02/13/17 Reported Mag-Ox (Magnesium Oxide) 400 Mg Tab 400 Mg PO DAILY 7 02/13/17 Reported Nystatin/Triamcinolone (Nystatin-Triamcinolone) 1 Cre Cre 1 Appln TOP BID 08/14/16 Reported Apply to groin and perineal area twice daily. Aspirin Ec (Aspirin) 81 Mg Tab 81 Mg PO DAILY 08/14/16 Reported Lopressor (Metoprolol Tartrate) 25 Mg Tab 12.5 Mg PO BID 08/14/16 Reported Tamsulosin HCl 0.4 Mg Cap 1 Cap PO HS 04/13/16 Reported Klor-Con (Potassium Chloride) 20 Meq Tabcr 20 Meq PO BID 04/13/16 Reported Multivitamin (Multivitamins) Tab 1 Tab PO DAILY 04/13/16 Reported Effexor (Venlafaxine Hcl) 75 Mg Tab 75 Mg PO BID 01/03/14 Reported Prilosec (Omeprazole) 20 Mg Capcr 20 Mg PO QAM 03/09/13 Reported Zaroxolyn (Metolazone) 5 Mg Tab 5 Mg PO 2XWK 12/26/12 Reported 1/2 hour prior to AM dose of Furosemide. PATIENT TAKES TUES AND THURS Proscar (Finasteride) 5 Mg Tab 5 Mg PO QAM 09/05/11 Reported Inpatient Medications: Current Inpatient Medications Medications (Trade) Dose Ordered Sig/Bj Route Start Time Stop Time Status Last Admin Dose Admin Heparin Sodium (Porcine) (Heparin Sq 5000 Unit/0.5ml) 5,000 unit Q8 SQ 08/27/17 22:00 09/26/17 21:59 08/29/17 05:51 5,000 UNIT Acetaminophen (Tylenol Tab) 650 mg Q4H PRN PO 08/27/17 20:30 09/26/17 20:29 08/28/17 19:55 650 MG Al Hydrox/Mg Hydrox/Simethicone (Maalox Max Susp) 15 ml Q4H PRN PO 08/27/17 20:30 09/26/17 20:29 Ondansetron HCl (Zofran Inj) 4 mg Q6H PRN IV 08/27/17 20:30 09/26/17 20:29 Nitroglycerin (Nitrostat Tab) 0.4 mg UD PRN SL 08/27/17 20:30 09/26/17 20:29 Polyethylene (Miralax Powder Packet) 17 gm DAILY PRN PO 08/27/17 20:30 09/26/17 20:29 Ascorbic Acid (Vitamin C Tab) 500 mg DAILY PO 08/28/17 09:00 09/27/17 08:59 08/28/17 09:19 500 MG Aspirin (Ecotrin Tab) 81 mg DAILY PO 08/28/17 09:00 09/27/17 08:59 08/28/17 09:18 81 MG Finasteride (Proscar Tab) 5 mg QAM PO 08/28/17 09:00 09/27/17 08:59 08/28/17 09:18 5 MG Folic Acid (Folvite Tab) 1 mg DAILY PO 08/28/17 09:00 09/27/17 08:59 08/28/17 09:18 1 MG Gabapentin (Neurontin Cap) 300 mg BID PO 08/27/17 21:00 09/26/17 20:59 08/28/17 19:57 300 MG Insulin Glargine (Lantus Solostar Pen) 25 units QPM SQ 08/27/17 21:00 09/26/17 20:59 08/28/17 20:07 25 UNITS Magnesium Oxide (Mag-Ox Tab) 400 mg DAILY PO 08/28/17 09:00 09/27/17 08:59 08/28/17 09:19 400 MG Metoprolol Tartrate (Lopressor Tab) 12.5 mg BID PO 08/27/17 21:00 09/26/17 20:59 08/28/17 19:58 12.5 MG Multivitamins (Multivitamin Tab) 1 tab DAILY PO 08/28/17 09:00 09/27/17 08:59 08/28/17 09:18 1 TAB Nystatin/ Triamcinolone Acetonide (Mycogen II Crm) 1 appln BID EXT 08/27/17 21:00 09/26/17 20:59 08/28/17 19:56 1 APPLN Potassium Chloride (Klor-Con Tab) 20 meq BID PO 08/27/17 21:00 09/26/17 20:59 Future Hold 08/28/17 09:17 20 MEQ Simvastatin (Zocor Tab) 40 mg QPM PO 08/27/17 21:00 09/26/17 20:59 08/28/17 19:57 40 MG Tamsulosin HCl (Flomax Cap) 0.4 mg HS PO 08/27/17 21:00 09/26/17 20:59 08/28/17 20:03 0.4 MG Venlafaxine HCl (effeXOR TAB) 75 mg BID PO 08/27/17 21:00 09/26/17 20:59 08/28/17 20:00 75 MG Calcium/Vitamin D (Caltrate Plus Tab) 1 tab DAILY PO 08/28/17 09:00 09/27/17 08:59 08/28/17 09:18 1 TAB Pantoprazole Sodium (Protonix Tab) 40 mg QAM PO 08/28/17 09:00 09/27/17 08:59 08/28/17 09:19 40 MG Furosemide 40 mg/ Syringe 4 ml @ 4 mls/min BID17 IV 08/27/17 21:00 09/26/17 20:59 Future Hold 08/27/17 22:29 4 MLS/MIN Piperacillin Sod/ Tazobactam Sod 4.5 gm/Dextrose 120 ml @ 30 mls/hr Q8H IV 08/28/17 00:00 09/07/17 00:00 08/29/17 01:06 30 MLS/HR Miscellaneous Information (Consult) 1 ea UD PRN N/A 08/27/17 20:30 09/26/17 20:29 Vancomycin HCl 1750 mg/Sodium Chloride 535 ml @ 200 mls/hr Q24H IV 08/28/17 17:00 09/07/17 16:59 08/28/17 17:30 200 MLS/HR Miscellaneous Information (Consult) 1 [facility] PRN N/A 08/27/17 20:30 09/26/17 20:29 Insulin Aspart (novoLOG ASPART) SLIDING SCALE G... ACHS SC 08/27/17 21:00 09/26/17 20:59 08/28/17 16:45 7 UNITS Ipratropium [place] (Atrovent 0.02% 0.5MG/2.5ML Neb) 0.5 mg Q4 PRN INH 08/28/17 08:30 09/27/17 08:29 Levalbuterol (Xopenex 1.25MG/ 0.5ML Neb) 1.25 mg Q4 PRN INH 08/28/17 08:30 09/27/17 08:29 Miscellaneous Information (Consult Glycemic Management Pharmacy) 1 [facility] PRN N/A 08/28/17 14:27 09/27/17 14:26 Review of Systems Review of Systems Additional Comments: Pr screaming out and agitated. Unable to answer questions d/t AMS this morning. Physical Exam Vital Signs: Vital Signs Past 12 Hours Date Time Temp Pulse Resp B/P (MAP) Pulse Ox O2 Delivery O2 Flow Rate FiO2 08/29/17 07:40 37.7 95 20 104/71 (82) 93 4.0 08/29/17 04:00 Nasal Cannula 4.0 08/29/17 03:45 37.3 83 25 100/74 (83) 94 Nasal Cannula 4.0 08/29/17 00:00 Nasal Cannula 4.0 08/28/17 23:45 36.8 75 23 108/63 (78) 98 Nasal Cannula 3.0 Physical Exam: General Appearance: + moderate distress, + obese Eyes: bilateral eyes normal inspection ENT: hearing grossly normal Neck: no JVD Respiratory/Chest: no respiratory distress, no accessory muscle use Cardiovascular: no JVD Genitourinary - Male: Penis: normal penis Extremities: normal inspection Neurologic/Psychiatric: alert, + disoriented Skin: normal color Assessment & Plan Assessment & Plan A/P: Urinary retention Pt extremely agitated and confused this morning. Crying out for help. 12Fr rodriguez catheter placed by Dr. Qureshi this morning. See separate procedure note. Noted to have a urethral stricture. Specimen obtained for culture as well. Pt is extremely likely to pull out catheter in this altered mental state. Recommend mitts, 1:1 supervision, and sedation as needed to prevent him from pulling on the catheter. Will need outpatient cysto to assess the urethral stricture. Will arrange with Dr. Hameed. Thanks for the consult. Will continue to follow along with primary service. The pt was seen and assessed with Dr. Qureshi this morning.
[2017-08-29] MEDS: NYSTATIN/TRIAMCINOLONE CR 15 GM TUBE EXT SCH ×2 (11:18→21:41)
--- NOTE | 2017-08-29 11:42 | Pharmacy Progress Note ---
Pharmacy Glycemic Short Note 2 Date of Service Aug 29, 2017. OUTPATIENT ANTIDIABETIC REGIMEN: * Lantus 25 units SQ qPM * Novolog 10 units SQ TID with meals * HbA1c: pending w/ am labs (04/29/17: 7.9%) ASSESSMENT: 08/28/17 * Mr Bowen is a 77yo diabetic gentleman well-known to the pharmacy glycemic management service from past admissions. * Patient was admitted last evening with cellulitis and altered mental status. * No steroids are ordered during this admission thus far. * Pt is ordered a diabetic diet, which he appears to be tolerating. * Pt has been hyperglycemic since admission, likely d/t infectious process. 08/29/17 * BSGs have trended down over the last 24 hours, dropping to a low of 71 this AM * He was likely initially hyperglycemic due to stress of illness / infxn / sepsis * He is bacteremic (e coli) * Confusion has worsened and he is quite lethargic today and not eating well * Will reduce his basal insulin dose at this time as it appears to be too much based upon current BSG trend and poor nutrition PLAN FOR INPATIENT GLYCEMIC CONTROL: * Basal insulin (dose reduction) * Lantus SQ qPM per the following scale: less than 110 give 0 units; 110-180 give 10 units; > 180 give 15 units * Bolus insulin * NovoLog per scale ACHS or Q6hrs while NPO * Goal Range: Low 110 mg/dL - High 140 mg/dL * Correction Factor: 25 mg/dL/unit * Nutritional / Prandial insulin per carb ratio of 1 unit per 8 grams CHO consumed PLAN FOR DISCHARGE: * A1c 9.1%, would recommend prompt f/u with PCP or dormitory supervisor on discharge to adjust outpt medication regimen. His A1c has increased over the last 4 months. His inpatient insulin requirements are much lower vs outpt requirements , perhaps compliance with diet and medications are partially to blame?
[2017-08-29] MEDS ORDERED: NURSING DECISION MEDICATION ORDER SCH (14:15)
[2017-08-29] MEDS ORDERED: MICONAZOLE NITRATE POWDER 43 GM EXT PRN (15:30)
[2017-08-29] MEDS ORDERED: VANCOMYCIN TROUGH ONE (16:30)
[2017-08-29] MEDS: SIMVASTATIN 40 MG TAB PO SCH (21:00)
[2017-08-29] MEDS: TAMSULOSIN HCL 0.4 MG CAP PO SCH (21:00)
[2017-08-29] MEDS ORDERED: INSULIN GLARGINE SOLOSTAR 100 UNITS/ML 3 ML PEN SQ SCH ×2 (21:00)
[2017-08-29] MEDS: MICONAZOLE NITRATE POWDER 43 GM EXT SCH (21:41)
[2017-08-29] MEDS: HALOPERIDOL LACTATE 5 MG/ML 1 ML VIAL IM PRN (21:55)
--- NOTE | 2017-08-29 22:00 | Pharmacy Progress Note ---
Pharmacy Abx Dose Short Note Date of Service Aug 29, 2017. Assessment & Plan Assessment 77 year old male receiving vancomycin for treatment of AMS and possible cellulitis Day # 3 of antimicrobial therapy. Plan Vancomycin * Trough level of 21.5 mcg/mL is supratherapeutic and random level 5 hours later was 20.5 mcg/mL. * Continue to hold dose as patient's kidney function has worsened substantially since admission. Plus patient is not clearing drug rapidly. * Random level ordered for: 08/30/17 with AM labs Pharmacy will continue to follow and will adjust dose/frequency as necessary. Thank you.
[2017-08-30] VITALS (8 sets, daily range): BP systolic 110–141; BP diastolic 71–84; PULSE 65–77; TEMP 36.4–36.9; O2SAT 94–100
[2017-08-30] MEDS: PIPERACILL/TAZOBAC IV 4.5 GM in DEXTROSE 5% 100ML 100 ML IV SCH ×4 (00:02→23:41)
[2017-08-30] MEDS: HEPARIN SOD 5000 UNIT/0.5 ML CARP SQ SCH ×3 (06:03→21:10)
[2017-08-30 06:11] LABS: HEMATOCRIT 31.6 % (42-52); HEMOGLOBIN 8.7 g/dL (14.0-18.0); MEAN CELL VOLUME 72.5 fL (80-100); MEAN CORPUSCULAR HGB CONC 27.5 g/dl (32-36); MEAN PLATELET VOLUME 8.9 fL (7.4-10.4); PLATELET COUNT 194 K/uL (130-400); RED CELL DISTRIBUTION WIDTH CV 18.2 % (11.5-14.5); RED CELL DISTRIBUTION WIDTH SD 48.2 fL (36.4-46.3); WHITE BLOOD COUNT 9.47 K/uL (4.8-10.8)
[2017-08-30 06:30] LABS: BASO % 0.1 %; BASO ABS # 0.01 K/uL (0-0.2); EOS % 0.2 %; EOS ABS # 0.02 K/uL (0-0.5); IG# 0.01 K/uL (0.00-0.02); LYMPH % 10.3 %; LYMPH ABS # 0.98 K/uL (1.2-3.4); MONO ABS # 1.04 K/uL (0.11-0.59); NEUT % 78.3 %; NEUT ABS # 7.41 K/uL (1.4-6.5)
[2017-08-30 06:43] LABS: ALBUMIN 2.1 gm/dl (3.4-5.0); CALCIUM 8.5 mg/dl (8.5-10.1); CREATININE 1.76 mg/dl (0.60-1.40); POTASSIUM 3.2 mmol/L (3.5-5.1)
[2017-08-30 06:45] LABS: TOTAL PROTEIN 6.7 gm/dl (6.4-8.2)
[2017-08-30] MEDS ORDERED: VANCOMYCIN IV 1,750 MG in SODIUM CHLORIDE 0.9% 500ML 500 ML IV ONE (08:00)
--- NOTE | 2017-08-30 08:39 | Progress Note ---
Subjective Date of Service: Aug 30, 2017. Subjective Pt evaluation today including: conversation w/ patient, chart review, lab review Voiding: rodriguez catheter in place (patent, draining clear, yellow urine ) 77 yo male with sepsis. 12Fr rodriguez catheter placed yesterday by Dr. Qureshi. Pt noted to have a urethral stricture. Pt c/o pain this morning, but cannot state where. He is sitting at the bedside eating his breakfast. He states it is delicious. He is oriented to place and time this morning. Much more coherent than yesterday. White count has normalized. Cr improved to 1.76. Repeat blood cultures growing gram negative bacilli. Previous cultures grew e coli. UC&S pending. Problem List Medical Problems: (1) Acute urinary retention Status: Acute (2) Altered mental status Status: Acute (3) Altered mental status Status: Acute (4) Altered mental status Status: Acute (5) Anemia Status: Acute (6) Bronchitis Status: Acute (7) Cellulitis Status: Acute (8) Change in mental status Status: Acute (9) CHF (congestive heart failure) Status: Acute (10) CHF (congestive heart failure) Status: Acute (11) CHF (congestive heart failure) Status: Acute (12) CO2 retention Status: Acute (13) Complication of catheter Status: Acute (14) Congestive heart failure Status: Acute (15) Dystonic drug reaction Status: Acute (16) Failure to thrive Status: Acute (17) Hypercarbia Status: Acute (18) Hypoglycemia Status: Acute (19) Hypokalemia Status: Acute (20) Hypoxemia Status: Acute (21) Hypoxemia Status: Acute (22) Hypoxia Status: Acute (23) Hypoxia Status: Acute (24) Hypoxia Status: Acute (25) Lower abdominal pain Status: Acute (26) Malfunction of Rodriguez catheter Status: Acute (27) Pneumonia Status: Acute (28) Respiratory acidosis Status: Acute (29) Right flank pain Status: Acute (30) Sepsis Status: Acute (31) Shortness of breath Status: Acute (32) Symptoms involving urinary system Status: Acute (33) Urethral pain Status: Acute (34) Urinary retention Status: Acute (35) Urinary retention Status: Acute (36) Urinary tract infection Status: Acute (37) Urinary tract infection Status: Acute (38) Urinary tract infection Status: Acute (39) UTI (urinary tract infection) Status: Acute (40) UTI (urinary tract infection) Status: Acute (41) UTI (urinary tract infection) Status: Acute (42) UTI (urinary tract infection) Status: Acute (43) UTI (urinary tract infection) due to urinary indwelling catheter Status: Acute (44) Weakness Status: Acute Review of Systems Constitutional: No fever, No chills Respiratory: No shortness of breath Cardiac: No chest pain Abdomen: No pain, No nausea, No vomiting Male : No hematuria Heme: No abnormal bleeding/bruising Objective Vital Signs Date Time Temp Pulse Resp B/P (MAP) Pulse Ox O2 Delivery O2 Flow Rate FiO2 08/30/17 08:06 36.9 72 20 138/75 (96) 94 Nasal Cannula 4.0 08/30/17 04:00 Nasal Cannula 4.0 08/30/17 03:59 36.9 76 20 139/84 (102) 95 Nasal Cannula 4.0 08/30/17 02:04 76 96 40 08/29/17 23:59 BiPAP 40 08/29/17 22:53 36.8 72 18 149/57 (87) 98 BiPAP 08/29/17 22:17 73 97 40 08/29/17 20:00 94 BiPAP 4.0 50 08/29/17 19:31 71 94 50 08/29/17 18:53 37.3 73 20 117/69 (85) 98 08/29/17 16:00 91 BiPAP 4.0 50 08/29/17 15:29 37.0 83 21 132/63 (86) 93 BiPAP 08/29/17 12:00 BiPAP 50 08/29/17 11:04 38.1 91 17 136/62 (86) 92 BiPAP 50 08/29/17 10:30 89 98 50 Physical Exam General Appearance: no apparent distress, + obese Eyes: normal inspection ENT: hearing grossly normal Neck: no JVD Respiratory/Chest: no respiratory distress, no accessory muscle use Cardiovascular: no JVD Extremities: normal inspection Neurologic/Psychiatric: alert, normal mood/affect, oriented x 3 Skin: normal color Laboratory Results Last 24 Hours Test 08/29/17 09:15 08/29/17 10:04 08/29/17 10:05 08/29/17 10:12 Urine Color YELLOW Urine Appearance CLOUDY Urine pH 5.0 Urine Specific [place] 1.020 Urine Protein 1+ Urine Glucose (UA) NEG Urine Ketones NEG Urine Occult Blood 1+ Urine Nitrite NEG Urine Bilirubin NEG Urine Urobilinogen NEG Urine Leukocyte Esterase MODERATE Urine WBC (Auto) >30 /hpf Urine RBC (Auto) 5-10 /hpf Urine Hyaline Casts (Auto) 1-5 /lpf Urine Epithelial Cells (Auto) >30 /lpf Urine Bacteria (Auto) NEG Urine Renal Epithelial Cells 5-10 /lpf Urine Crystals AMORPHOUS SEDIMENT Urine Yeast (Auto) Ammonia 18.0 umol/L Arterial Blood pH 7.35 Arterial Blood Partial Pressure CO2 63 mmHg Arterial Blood Partial Pressure O2 90 mm/Hg Arterial Blood HCO3 34 mmol/L Arterial Blood Oxygen Saturation 93.9 % Arterial Blood Base Excess 7.0 mEq/L Arterial Blood Gas Delivery 5 L [place] Test POS Total Creatine Kinase 137 U/L Bedside Glucose 87 mg/dl Test 08/29/17 16:25 08/29/17 16:30 08/29/17 20:03 08/29/17 21:03 Bedside Glucose 104 mg/dl 79 mg/dl Vancomycin Level Trough 21.5 mcg/ml Random Vancomycin Level 20.5 mcg/ml Test 08/30/17 05:55 08/30/17 06:42 White Blood Count 9.47 K/uL Red Blood Count 4.36 M/uL Hemoglobin 8.7 g/dL Hematocrit 31.6 % Mean Corpuscular Volume 72.5 fL Mean Corpuscular Hemoglobin 20.0 pg Mean Corpuscular Hemoglobin Concent 27.5 g/dl Platelet Count 194 K/uL Mean Platelet Volume 8.9 fL Neutrophils (%) (Auto) 78.3 % Lymphocytes (%) (Auto) 10.3 % Monocytes (%) (Auto) 11.0 % Eosinophils (%) (Auto) 0.2 % Basophils (%) (Auto) 0.1 % Neutrophils # (Auto) 7.41 K/uL Lymphocytes # (Auto) 0.98 K/uL Monocytes # (Auto) 1.04 K/uL Eosinophils # (Auto) 0.02 K/uL Basophils # (Auto) 0.01 K/uL RDW Standard Deviation 48.2 fL RDW Coefficient of Variation 18.2 % Immature Granulocyte % (Auto) 0.1 % Immature Granulocyte # (Auto) 0.01 K/uL Hypersegmented Polys 1+ Hypochromasia PRESENT Microcytosis PRESENT Sodium Level 141 mmol/L Potassium Level 3.2 mmol/L Chloride Level 100 mmol/L Carbon Dioxide Level 35 mmol/L Anion Gap 6.0 mmol/L Blood Urea Nitrogen 52 mg/dl Creatinine 1.76 mg/dl Est Creatinine Clear Calc Drug Dose 46.2 ml/min Estimated GFR () 42.6 Estimated GFR (Non- 36.7 BUN/Creatinine Ratio 29.7 Random Glucose 102 mg/dl Calcium Level 8.5 mg/dl Magnesium Level 2.8 mg/dl Total Bilirubin 0.7 mg/dl Direct Bilirubin 0.3 mg/dl Aspartate Amino Transf (AST/SGOT) 30 U/L Alanine Aminotransferase (ALT/SGPT) 20 U/L Alkaline Phosphatase 101 U/L Total Protein 6.7 gm/dl Albumin 2.1 gm/dl Random Vancomycin Level 16.7 mcg/ml Bedside Glucose 128 mg/dl Assessment and Plan A/P: Sepsis, Urinary retention, urethral stricture AFVSS. Pt clinically improving. Will plan for outpatient cysto with Dr. Hameed to evaluate urethral stricture. Plan to keep rodriguez catheter until that time. Continue abx per primary service. No further management at this time. Recall PRN issues. Thanks for allowing us to participate in this pt's care.
[2017-08-30] MEDS: VENLAFAXINE HCL 37.5 MG TAB PO SCH ×2 (08:55→21:06)
[2017-08-30] MEDS: MAGNESIUM OXIDE 400 MG TAB PO SCH (08:55)
[2017-08-30] MEDS: ASCORBIC ACID 500 MG TAB PO SCH (08:55)
[2017-08-30] MEDS: FINASTERIDE 5 MG TAB PO SCH (08:55)
[2017-08-30] MEDS: MULTIVITAMIN TAB PO SCH (08:55)
[2017-08-30] MEDS: TAMSULOSIN HCL 0.4 MG CAP PO SCH (08:55)
[2017-08-30] MEDS: METOPROLOL TARTRATE 25 MG TAB PO SCH ×2 (08:55→21:05)
[2017-08-30] MEDS: CALCIUM 600MG + VIT D 400 IU TAB PO SCH (08:55)
[2017-08-30] MEDS: GABAPENTIN 300 MG CAP PO SCH ×2 (08:55→21:06)
[2017-08-30] MEDS: SIMVASTATIN 40 MG TAB PO SCH (08:56)
[2017-08-30] MEDS: PANTOprazole SOD 40 MG TAB PO SCH (08:56)
[2017-08-30] MEDS: MICONAZOLE NITRATE POWDER 43 GM EXT SCH ×2 (08:57→21:06)
[2017-08-30] MEDS: NYSTATIN/TRIAMCINOLONE CR 15 GM TUBE EXT SCH ×2 (08:57→21:06)
[2017-08-30] MEDS: INSULIN ASPART 100 UNITS/ML 3 ML PEN SC SCH ×4 (09:01→21:08)
[2017-08-30] MEDS: ASPIRIN 81 MG ECTAB PO SCH (12:07)
--- NOTE | 2017-08-30 12:16 | Pharmacy Progress Note ---
Pharmacy Abx Dose Short Note Date of Service Aug 30, 2017. Assessment & Plan Assessment * 77 year old male receiving VANCOMYCIN and ZOSYN IV for treatment of sepsis secondary to RLE cellulitis +/- UTI, e. coli bacteremia * Day # 4 of antimicrobial therapy * Blood cx's are growing e coli, sensitive to Zosyn and other ABX (including Rocephin and Ancef) * Urine Cx is still pending at this time. He had grown ps aeruginosa and enterococcus faecalis in urine cx's in July of this year. * Patient has nasal colonization with MRSA * RENEA still present, however SCr may have peaked yesterday and has leveled out. Baseline SCr ~1.1; SCr decreased today (2.35 -->1.76) * Tmax 38.1 last 24 hrs; sat well on 4L NC, BP and HR stable * Encephalopathy improved today Plan Vancomycin * Trough level drawn last evening prior to 2nd maintenance dose due to declining renal fxn. Trough = 20.5 so dose was held and repeat levels ordered for HS last evening and again this AM. * Random level this AM is 16.7. This level was drawn ~ 36 hours after last dose administered. * Will redose vancomycin this AM, 1750mg (~15mg/kg) IV x 1. * Will not order a set maintenance dose a renal fxn appears to be changing. Will order another level w/ AM labs tomorrow to help guide dosing. * Goal trough level for cellulitis : 10 to 20 mcg/mL Zosyn * Continue 4.5gm IV ext-infusion over 4 hours Q 8 hrs for eCrCl > 20cc/min and B <I > 35 * Might consider deescalation to Rocephin if urine cx does not grow ps aeruginosa or enterococcus. Pharmacy will continue to follow and will adjust dose/frequency as necessary. Thank you.
[2017-08-30] MEDS ORDERED: INSULIN GLARGINE SOLOSTAR 100 UNITS/ML 3 ML PEN SQ ONE (13:30)
--- NOTE | 2017-08-30 13:52 | Pharmacy Progress Note ---
Pharmacy Glycemic Short Note 2 Date of Service Aug 30, 2017. OUTPATIENT ANTIDIABETIC REGIMEN: * Lantus 25 units SQ qPM * Novolog 10 units SQ TID with meals * HbA1c: pending w/ am labs (04/29/17: 7.9%) ASSESSMENT: 08/28/17 * Mr Bowen is a 77yo diabetic gentleman well-known to the pharmacy glycemic management service from past admissions. * Patient was admitted last evening with cellulitis and altered mental status. * No steroids are ordered during this admission thus far. * Pt is ordered a diabetic diet, which he appears to be tolerating. * Pt has been hyperglycemic since admission, likely d/t infectious process. 08/29/17 * BSGs have trended down over the last 24 hours, dropping to a low of 71 this AM * He was likely initially hyperglycemic due to stress of illness / infxn / sepsis * He is bacteremic (e coli) * Confusion has worsened and he is quite lethargic today and not eating well * Will reduce his basal insulin dose at this time as it appears to be too much based upon current BSG trend and poor nutrition 08/30/17 * BSGs have ranged 79-128 over the last 24 hours * Fasting BSG 102-128 this AM with 0 units Lantus on board - the dose was held last evening per scale as BSG was only 79 * Patient's encephalopathy is improving and he did eat his breakfast and lunch today. * Renal fxn also improving. SCr 2.35 -->1.76 * BSG up to 168 pre-lunch, will resume a reduced dose of Lantus today and given now rather than waiting for HS. A scale will be used to guide HS Lantus dose. * CR performed well with breakfast PLAN FOR INPATIENT GLYCEMIC CONTROL: * Basal insulin (dose increase) * Lantus 12 units SQ x 1 now * Lantus SQ qPM per the following scale: less than 150 give 0 units; 150 or greater give 5 units * Bolus insulin (no changes) * NovoLog per scale ACHS or Q6hrs while NPO * Goal Range: Low 110 mg/dL - High 140 mg/dL * Correction Factor: 25 mg/dL/unit * Nutritional / Prandial insulin per carb ratio of 1 unit per 8 grams CHO consumed PLAN FOR DISCHARGE: * A1c 9.1%, would recommend prompt f/u with PCP or library serials assistant on discharge to adjust outpt medication regimen. His A1c has increased over the last 4 months. His inpatient insulin requirements are much lower vs outpt requirements , perhaps compliance with diet and medications are partially to blame?
--- NOTE | 2017-08-30 16:03 | Progress Note ---
Internal Med Progress Note Date of Service: Aug 30, 2017. Provider Documentation: SUBJECTIVE: Appeared to be more alert than yesterday Sitting on edge of the bed Still has confusion. No agitation noted Continues to have moist productive cough OBJECTIVE: Vital Signs-as noted below Exam: General-obese, confused Eyes-sclera nonicteric, pupils reactive to light ENT-moist oral mucosa Neck-no JVD noted Lungs-positive rales at bilateral bases Heart-regular S1-S2 Abdomen-obese nontender, soft Extremities-right lower extremity: Positive erythema/increased warmth/tenderness Chronic venous stasis changes noted on the left, no evidence of inflammation or infection Neuro-generalized weakness, confusion/no agitation noted Lab data as noted below. ASSESSMENT & PLAN: SEVERE SEPSIS/GRAM-NEGATIVE BACTEREMIA: Admitted with severe sepsis: Met criteria As patient presented with fever/ leukocytosis/tachycardia/tachypnea/hypotension/ acute renal failure/confusion Possible source of infection: UTI/right lower extremity cellulitis Patient started with empiric broad-spectrum antibiotic with IV vancomycin/Zosyn Prior history of Pseudomonas and enterococcus urinary tract infection Ordered for UA and culture Patient is incontinent and confused to provide a clean-catch urine Unable to to put a Osorio catheter or straight cath by nursing due to history of BPH Urology consulted Osorio placed by Dr. Qureshi ID rickeyal requested-appreciate input from Dr. Martinez recommend to continue with IV vancomycin and Zosyn Leukocytosis has improved Remain afebrile On IV vancomycin and Zosyn HYPOXEMIA/RESPIRATORY DISTRESS: Next possible due to combination of decompensated CHF with diastolic dysfunction /CO2 retention in the setting of confusion and lethargy Patient was placed on BiPAP overnight At present on oxygen via nasal cannula Continue broad-spectrum antibiotic as above Ordered for neb treatment ACUTE ON CHRONIC DIASTOLIC CONGESTIVE HEART FAILURE Very hard to assess volume status due to patient's body habitus In the setting of severe sepsis-risk of intravascular volume depletion remains high Outpatient Lasix and Zaroxolyn kept on hold . Echo done in July 2017, ejection fraction was normal, grossly normal ejection fraction and valvular function. 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 Hameed Urology eval requested-appreciate input Osorio catheter placed by Dr. Qureshi Recommend patient to continue to keep Osorio catheter on discharge Have outpatient follow-up with Dr. Hameed-will need outpatient cystoscopy to evaluate urethral stricture CONFUSION/METABOLIC ENCEPHALOPATHY Due to severe sepsis/acute renal failure Developed acute delirium 24 hours back Mental status much improved today/no agitation noted Continue to monitor High fall risk, ordered bed alarm, low boy bed Consider one-to-one observation in setting of agitation/worsening of confusion/ sundowning CARDIAC ARRHYTHMIA NOTED ON MONITOR Appreciate input from cardiology No evidence of A. fib noted Patient had frequent PAC/PVC possible secondary to sepsis/acute renal failure No cardiac intervention indicated Cardiology recommends to correct underlying cause TYPE 2 DIABETES: Blood sugar elevated secondary to severe sepsis Continue Lantus Insulin sliding scale Pharmacy consulted for glycemic management OBSTRUCTIVE SLEEP APNEA Continue BiPAP at night HYPERTENSION Blood pressure stable Diuretics on hold-due to a care On Lopressor with holding parameters SACRAL DECUBITUS ULCER STAGE I TO II. Present on admission Appreciate wound care consult. CODE STATUS: Full code DVT PROPHYLAXIS Moderate to high risk SubQ heparin DISPOSITION Presents with significant deconditioning/confusion/severe sepsis PT OT evaluation requested Was recently at [facility] for rehab, per patient had significant benefit May need rehab when medically stable Social service consulted for discharge planning Vital Signs: Date Time Temp Pulse Resp B/P (MAP) Pulse Ox O2 Delivery O2 Flow Rate FiO2 08/31/17 19:32 36.5 73 22 175/75 (108) 99 Nasal Cannula 4.0 08/31/17 16:00 Nasal Cannula 4.0 08/31/17 15:31 36.5 63 22 139/82 (101) 99 Nasal Cannula 4.0 08/31/17 12:00 Nasal Cannula 4.0 08/31/17 11:46 36.4 74 19 142/78 (99) 99 Nasal Cannula 2.0 08/31/17 08:10 36.5 72 22 122/60 (80) 96 Nasal Cannula 4.0 08/31/17 08:00 Nasal Cannula 4.0 08/31/17 04:00 Nasal Cannula 4.0 08/31/17 03:43 36.8 67 23 100/50 (67) 97 Nasal Cannula 4.0 08/31/17 00:00 Nasal Cannula 4.0 08/30/17 23:45 36.4 65 23 121/71 (88) 100 Nasal Cannula 4.0 08/30/17 20:00 Nasal Cannula 4.0 Lab Results: Results Past 24 Hours Test 08/30/17 20:25 08/31/17 05:36 08/31/17 07:12 08/31/17 11:19 Range/Units Bedside Glucose 252 146 145 70-99 mg/dl Creatinine 1.39 0.60-1.40 mg/dl Est Creatinine Clear Calc Drug Dose 60.1 ml/min Estimated GFR () 56.7 Estimated GFR (Non- 48.9 Total Bilirubin 0.7 0.2-1 mg/dl Direct Bilirubin 0.2 0-0.2 mg/dl Aspartate Amino Transf (AST/SGOT) 26 15-37 U/L Alanine Aminotransferase (ALT/SGPT) 20 12-78 U/L Alkaline Phosphatase 109 45-117 U/L Total Protein 6.4 6.4-8.2 gm/dl Albumin 2.1 3.4-5.0 gm/dl Random Vancomycin Level 18.5 mcg/ml Test 08/31/17 16:29 Range/Units Bedside Glucose 108 70-99 mg/dl Microbiology Results 08/31/17 Blood Culture, Ordered Pending 08/31/17 Blood Culture, Ordered Pending
--- NOTE | 2017-08-30 19:33 | Infectious Disease Progress Nt ---
Progress Note Date of Service Aug 30, 2017. Subjective Pt evaluation today including: conversation w/ patient, conversation w/ family , physical exam, chart review, lab review, review of studies, conversation w/ financial analysis consultant, review of inpatient medication list Patient remains confused, somewhat more alert than yesterday. No fever. Blood cultures positive for E coli. All Other Systems: Reviewed and Negative Medications Current Inpatient Medications Medications (Trade) Dose Ordered Sig/Bj Route Start Time Stop Time Status Last Admin Dose Admin Heparin Sodium (Porcine) (Heparin Sq 5000 Unit/0.5ml) 5,000 unit Q8 SQ 08/27/17 22:00 09/26/17 21:59 08/30/17 09:02 5,000 UNIT Acetaminophen (Tylenol Tab) 650 mg Q4H PRN PO 08/27/17 20:30 09/26/17 20:29 08/28/17 19:55 650 MG Al Hydrox/Mg Hydrox/Simethicone (Maalox Max Susp) 15 ml Q4H PRN PO 08/27/17 20:30 09/26/17 20:29 Ondansetron HCl (Zofran Inj) 4 mg Q6H PRN IV 08/27/17 20:30 09/26/17 20:29 Nitroglycerin (Nitrostat Tab) 0.4 mg UD PRN SL 08/27/17 20:30 09/26/17 20:29 Polyethylene (Miralax Powder Packet) 17 gm DAILY PRN PO 08/27/17 20:30 09/26/17 20:29 Ascorbic Acid (Vitamin C Tab) 500 mg DAILY PO 08/28/17 09:00 09/27/17 08:59 08/30/17 08:55 500 MG Aspirin (Ecotrin Tab) 81 mg DAILY PO 08/28/17 09:00 09/27/17 08:59 08/30/17 12:07 81 MG Finasteride (Proscar Tab) 5 mg QAM PO 08/28/17 09:00 09/27/17 08:59 08/30/17 08:55 5 MG Folic Acid (Folvite Tab) 1 mg DAILY PO 08/28/17 09:00 09/27/17 08:59 08/30/17 08:55 1 MG Gabapentin (Neurontin Cap) 300 mg BID PO 08/27/17 21:00 09/26/17 20:59 08/30/17 08:55 300 MG Magnesium Oxide (Mag-Ox Tab) 400 mg DAILY PO 08/28/17 09:00 09/27/17 08:59 08/30/17 08:55 400 MG Metoprolol Tartrate (Lopressor Tab) 12.5 mg BID PO 08/27/17 21:00 09/26/17 20:59 08/30/17 08:55 12.5 MG Multivitamins (Multivitamin Tab) 1 tab DAILY PO 08/28/17 09:00 09/27/17 08:59 08/30/17 08:55 1 TAB Nystatin/ Triamcinolone Acetonide (Mycogen II Crm) 1 appln BID EXT 08/27/17 21:00 09/26/17 20:59 08/30/17 08:57 1 APPLN Potassium Chloride (Klor-Con Tab) 20 meq BID PO 08/27/17 21:00 09/26/17 20:59 Future Hold 08/28/17 09:17 20 MEQ Simvastatin (Zocor Tab) 40 mg QPM PO 08/27/17 21:00 09/26/17 20:59 08/30/17 08:56 40 MG Tamsulosin HCl (Flomax Cap) 0.4 mg HS PO 08/27/17 21:00 09/26/17 20:59 08/30/17 08:55 0.4 MG Venlafaxine HCl (effeXOR TAB) 75 mg BID PO 08/27/17 21:00 09/26/17 20:59 08/30/17 08:55 75 MG Calcium/Vitamin D (Caltrate Plus Tab) 1 tab DAILY PO 08/28/17 09:00 09/27/17 08:59 08/30/17 08:55 1 TAB Pantoprazole Sodium (Protonix Tab) 40 mg QAM PO 08/28/17 09:00 09/27/17 08:59 08/30/17 08:56 40 MG Furosemide 40 mg/ Syringe 4 ml @ 4 mls/min BID17 IV 08/27/17 21:00 09/26/17 20:59 Future Hold 08/27/17 22:29 4 MLS/MIN Piperacillin Sod/ Tazobactam Sod 4.5 gm/Dextrose 120 ml @ 30 mls/hr Q8H IV 08/28/17 00:00 4/28/18 00:00 08/30/17 17:09 30 MLS/HR Miscellaneous Information (Consult) 1 UD PRN N/A 08/27/17 20:30 09/26/17 20:29 Miscellaneous Information (Consult) 1 [facility] PRN N/A 08/27/17 20:30 09/26/17 20:29 Insulin Aspart (novoLOG ASPART) SLIDING SCALE G... ACHS SC 08/27/17 21:00 09/26/17 20:59 08/30/17 17:12 5 UNITS Ipratropium [place] (Atrovent 0.02% 0.5MG/2.5ML Neb) 0.5 mg Q4 PRN INH 08/28/17 08:30 09/27/17 08:29 Levalbuterol (Xopenex 1.25MG/ 0.5ML Neb) 1.25 mg Q4 PRN INH 08/28/17 08:30 09/27/17 08:29 Miscellaneous Information (Consult Glycemic Management Pharmacy) 1 [facility] PRN N/A 08/28/17 14:27 09/27/17 14:26 Haloperidol Lactate (Haldol Inj) 5 mg Q6 PRN IM 08/29/17 10:00 09/28/17 09:59 08/29/17 21:55 5 MG Miconazole Nitrate (Desenex Powder) 1 appln BID EXT 08/29/17 21:00 09/28/17 20:59 08/30/17 08:57 1 APPLN Miconazole Nitrate (Desenex Powder) 1 appln PRN PRN EXT 08/29/17 15:30 09/28/17 15:29 Insulin Glargine (Lantus Solostar Pen) See Protocol Text HS SQ 08/30/17 21:00 09/29/17 20:59 Objective Vital Signs Date Time Temp Pulse Resp B/P (MAP) Pulse Ox O2 Delivery O2 Flow Rate FiO2 08/30/17 18:42 36.6 77 20 110/74 (86) 100 Room Air 08/30/17 16:00 Nasal Cannula 4.0 08/30/17 15:23 36.9 67 18 123/72 (89) 99 4.0 100 08/30/17 12:00 Nasal Cannula 4.0 08/30/17 11:34 36.7 75 20 141/78 (99) 96 Nasal Cannula 4.0 08/30/17 08:06 36.9 72 20 138/75 (96) 94 Nasal Cannula 4.0 08/30/17 08:00 95 Nasal Cannula 4.0 08/30/17 04:00 Nasal Cannula 4.0 08/30/17 03:59 36.9 76 20 139/84 (102) 95 Nasal Cannula 4.0 08/30/17 02:04 76 96 40 08/29/17 23:59 BiPAP 40 08/29/17 22:53 36.8 72 18 149/57 (87) 98 BiPAP 08/29/17 22:17 73 97 40 08/29/17 20:00 94 BiPAP 4.0 50 Physical Exam General Appearance: WD/WN, no apparent distress Eyes: normal inspection, EOMI, sclerae normal ENT: normal ENT inspection, pharynx normal Neck: supple, no adenopathy, thyroid normal, trachea midline Respiratory/Chest: chest non-tender, lungs clear, normal breath sounds, no respiratory distress Cardiovascular: regular rate, rhythm, no gallop, no murmur Abdomen: normal bowel sounds, non tender, soft, no organomegaly Extremities: + inflammation (Right leg), + swelling (Right leg) Neurologic/Psychiatric: alert, + disoriented Skin: normal color, + pertinent finding (Right lower leg erythema) Lymphatic: no adenopathy Laboratory Results Last 24 Hours Test 08/29/17 20:03 08/29/17 21:03 08/30/17 05:55 08/30/17 06:42 Bedside Glucose 79 mg/dl 128 mg/dl Random Vancomycin Level 20.5 mcg/ml 16.7 mcg/ml White Blood Count 9.47 K/uL Red Blood Count 4.36 M/uL Hemoglobin 8.7 g/dL Hematocrit 31.6 % Mean Corpuscular Volume 72.5 fL Mean Corpuscular Hemoglobin 20.0 pg Mean Corpuscular Hemoglobin Concent 27.5 g/dl Platelet Count 194 K/uL Mean Platelet Volume 8.9 fL Neutrophils (%) (Auto) 78.3 % Lymphocytes (%) (Auto) 10.3 % Monocytes (%) (Auto) 11.0 % Eosinophils (%) (Auto) 0.2 % Basophils (%) (Auto) 0.1 % Neutrophils # (Auto) 7.41 K/uL Lymphocytes # (Auto) 0.98 K/uL Monocytes # (Auto) 1.04 K/uL Eosinophils # (Auto) 0.02 K/uL Basophils # (Auto) 0.01 K/uL RDW Standard Deviation 48.2 fL RDW Coefficient of Variation 18.2 % Immature Granulocyte % (Auto) 0.1 % Immature Granulocyte # (Auto) 0.01 K/uL Hypersegmented Polys 1+ Hypochromasia PRESENT Microcytosis PRESENT Sodium Level 141 mmol/L Potassium Level 3.2 mmol/L Chloride Level 100 mmol/L Carbon Dioxide Level 35 mmol/L Anion Gap 6.0 mmol/L Blood Urea Nitrogen 52 mg/dl Creatinine 1.76 mg/dl Est Creatinine Clear Calc Drug Dose 46.2 ml/min Estimated GFR () 42.6 Estimated GFR (Non- 36.7 BUN/Creatinine Ratio 29.7 Random Glucose 102 mg/dl Calcium Level 8.5 mg/dl Magnesium Level 2.8 mg/dl Total Bilirubin 0.7 mg/dl Direct Bilirubin 0.3 mg/dl Aspartate Amino Transf (AST/SGOT) 30 U/L Alanine Aminotransferase (ALT/SGPT) 20 U/L Alkaline Phosphatase 101 U/L Total Protein 6.7 gm/dl Albumin 2.1 gm/dl Test 08/30/17 11:39 Bedside Glucose 168 mg/dl Assessment and Plan E. coli bacteremia with encephalopathy, likely from urinary tract source. Patient should be able to be treated with ceftriaxone 2 gm daily. This should cover possible right lower extremity cellulitis as well. Will follow.
[2017-08-30] MEDS: INSULIN GLARGINE SOLOSTAR 100 UNITS/ML 3 ML PEN SQ SCH (21:09)
[2017-08-31 03:43] VITALS: BP 100/50; PULSE 67; TEMP 36.8; O2SAT 97
[2017-08-31] MEDS: ACETAMINOPHEN 325 MG TAB PO PRN (03:51)
[2017-08-31] MEDS: HEPARIN SOD 5000 UNIT/0.5 ML CARP SQ SCH ×3 (06:06→20:42)
[2017-08-31 07:14] LABS: ALBUMIN 2.1 gm/dl (3.4-5.0); CREATININE 1.39 mg/dl (0.60-1.40)
[2017-08-31 07:17] LABS: TOTAL PROTEIN 6.4 gm/dl (6.4-8.2)
[2017-08-31 08:10] VITALS: BP 122/60; PULSE 72; TEMP 36.5; O2SAT 96
[2017-08-31] MEDS: PIPERACILL/TAZOBAC IV 4.5 GM in DEXTROSE 5% 100ML 100 ML IV SCH ×2 (08:52→16:54)
[2017-08-31] MEDS: ASPIRIN 81 MG ECTAB PO SCH (08:53)
[2017-08-31] MEDS: MICONAZOLE NITRATE POWDER 43 GM EXT SCH ×2 (08:53→20:36)
[2017-08-31] MEDS: MULTIVITAMIN TAB PO SCH (08:55)
[2017-08-31] MEDS: MAGNESIUM OXIDE 400 MG TAB PO SCH (08:56)
[2017-08-31] MEDS: FINASTERIDE 5 MG TAB PO SCH (08:56)
[2017-08-31] MEDS: PANTOprazole SOD 40 MG TAB PO SCH (08:56)
[2017-08-31] MEDS: VENLAFAXINE HCL 37.5 MG TAB PO SCH ×2 (08:56→20:37)
[2017-08-31] MEDS: GABAPENTIN 300 MG CAP PO SCH ×2 (08:56→20:38)
[2017-08-31] MEDS: METOPROLOL TARTRATE 25 MG TAB PO SCH ×2 (08:56→20:38)
[2017-08-31] MEDS: CALCIUM 600MG + VIT D 400 IU TAB PO SCH (08:56)
[2017-08-31] MEDS: ASCORBIC ACID 500 MG TAB PO SCH (08:56)
[2017-08-31] MEDS: NYSTATIN/TRIAMCINOLONE CR 15 GM TUBE EXT SCH ×2 (08:57→20:36)
[2017-08-31] MEDS: INSULIN ASPART 100 UNITS/ML 3 ML PEN SC SCH ×4 (09:01→20:38)
[2017-08-31] MEDS ORDERED: VANCOMYCIN IV 1,750 MG in SODIUM CHLORIDE 0.9% 500ML 500 ML IV ONE (10:00)
[2017-08-31 11:46] VITALS: BP 142/78; PULSE 74; TEMP 36.4; O2SAT 99
--- NOTE | 2017-08-31 12:02 | Pharmacy Progress Note ---
Pharmacy Glycemic Short Note 2 Date of Service Aug 31, 2017. OUTPATIENT ANTIDIABETIC REGIMEN: * Lantus 25 units SQ qPM * Novolog 10 units SQ TID with meals * HbA1c: pending w/ am labs (04/29/17: 7.9%) ASSESSMENT: * Pt was receiving outpatient dosing of Lantus 08/27-08/28 which lead to a "lower " BSG on 08/29. Basal insulin dosing decreased for 08/29 PM (held). Then, basal isulin restarted 08/30 at reduced dosing * Pt has received 39 units of insulin over the past 24hrs with adequate control * 17 units of basal insulin with lantus * 22 units of prandial insulin with NovoLog * BSGs ranging 128-252mg/dl but BSGs all in goal range today. Will make slight adjustments to maintain goal range BSGs * PLAN FOR INPATIENT GLYCEMIC CONTROL: * Basal insulin * Lantus 17 units SQ HS * Will give increased dose of 22 units if BSG > 180 mg/dl * Bolus insulin (no changes) * NovoLog per scale ACHS or Q6hrs while NPO * Goal Range: Low 110 mg/dL - High 140 mg/dL * Correction Factor: 25 mg/dL/unit * Nutritional / Prandial insulin per carb ratio of 1 unit per 8 grams CHO consumed PLAN FOR DISCHARGE: * A1c 9.1%, would recommend prompt f/u with PCP or [facility] gang sawyer on discharge to adjust outpt medication regimen. His A1c has increased over the last 4 months. His inpatient insulin requirements are much lower vs outpt requirements , perhaps compliance with diet and medications are partially to blame?
--- NOTE | 2017-08-31 13:15 | Pharmacy Progress Note ---
Pharmacy Abx Dose Short Note Date of Service Aug 31, 2017. Assessment & Plan Assessment 77 year old male receiving Vancomycin for treatment of RLE cellulitis. Day # 5/10 of antimicrobial therapy. Plan Vancomycin * Trough level of 18.5 mcg/mL is therapeutic. * Renal function seems to be improving from 1.76 yesterday to 1.39 today. Crcl = 60.1 today. * Patient was re-dosed with Vanco 1750 mg IV x 1 this AM. * Goal trough level: 15 to 20 mcg/mL * A random level ordered for 09/01/17 with AM labs. Pharmacy will continue to follow and will adjust dose/frequency as necessary. Thank you.
[2017-08-31 15:31] VITALS: BP 139/82; PULSE 63; TEMP 36.5; O2SAT 99
[2017-08-31 19:32] VITALS: BP 175/75; PULSE 73; TEMP 36.5; O2SAT 99
[2017-08-31] MEDS ORDERED: FUROSEMIDE 40 MG TAB PO ONE (20:00)
[2017-08-31] MEDS ORDERED: ERTAPENEM IV 1 GM in SODIUM CHLOR 0.9% AD-VAN 50ML 50 ML IV SCH (20:00)
--- NOTE | 2017-08-31 20:02 | Progress Note ---
Internal Med Progress Note Date of Service: Aug 31, 2017. Provider Documentation: SUBJECTIVE: More awake and alert today Denies of any discomfort OBJECTIVE: Vital Signs-as noted below Exam: General-obese, confused Eyes-sclera nonicteric, pupils reactive to light ENT-moist oral mucosa Neck-no JVD noted Lungs-positive rales at bilateral bases Heart-regular S1-S2 Abdomen-obese nontender, soft Extremities-right lower extremity: Positive erythema/increased warmth/tenderness Chronic venous stasis changes noted on the left, no evidence of inflammation or infection Neuro-generalized weakness, no focal neurological deficit Lab data as noted below. ASSESSMENT & PLAN: SEVERE SEPSIS/GRAM-NEGATIVE BACTEREMIA/E. COLI MULTIDRUG RESISTANT: Admitted with severe sepsis: Met criteria As patient presented with fever/ leukocytosis/tachycardia/tachypnea/hypotension/ acute renal failure/confusion Patient started with empiric broad-spectrum antibiotic with IV vancomycin/Zosyn Prior history of Pseudomonas and enterococcus urinary tract infection Ordered for UA and culture Patient is incontinent and confused to provide a clean-catch urine Unable to to put a Osorio catheter or straight cath by nursing due to history of BPH Urology consulted Osorio placed by Dr. Qureshi Urine culture catheterized sample no growth/patient was already been on IV antibiotic treatment Patient has been afebrile/blood pressure remained stable/WBC normal 08/27/17; 2 sets blood culture; gram-negative bacilli E. coli: Multidrug-resistant: Resistant to quinolone/ampicillin Sensitive to Rocephin/Invanz/imipenem Appreciate input from ID Antibiotic adjusted IV vancomycin/IV Zosyn discontinued Patient started with IV Rocephin 2 g daily Repeat blood culture on 08-29-17: Gram-negative bacilli Ordered for repeat blood cultures tomorrow Patient will need long-term IV antibiotics/ Will need PICC line HYPOXEMIA/RESPIRATORY DISTRESS: Respiratory status improved possible due to combination of decompensated CHF with diastolic dysfunction/CO2 retention in the setting of confusion and lethargy At present on oxygen via nasal cannula Continue broad-spectrum antibiotic as above Ordered for neb treatment ACUTE ON CHRONIC DIASTOLIC CONGESTIVE HEART FAILURE At present compensated Very hard to assess volume status due to patient's body habitus Outpatient Lasix and Zaroxolyn was kept on hold-In the setting of severe sepsis -risk of intravascular volume depletion remains high . Echo done in July 2017, ejection fraction was normal, grossly normal ejection fraction and valvular function. 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 Hameed Urology eval requested-appreciate input Osorio catheter placed by Dr. Qureshi Recommend patient to continue to keep Osorio catheter on discharge Have outpatient follow-up with Dr. Hameed-will need outpatient cystoscopy to evaluate urethral stricture CONFUSION/METABOLIC ENCEPHALOPATHY Due to severe sepsis/acute renal failure Mental status continues to improve With treatment of infection/correction of hypoxemia/resolution of renal High fall risk, ordered bed alarm, low boy bed Consider one-to-one observation in setting of agitation/worsening of confusion/ sundowning CARDIAC ARRHYTHMIA NOTED ON MONITOR Appreciate input from cardiology No evidence of A. fib noted Patient had frequent PAC/PVC possible secondary to sepsis/acute renal failure No cardiac intervention indicated Cardiology recommends to correct underlying cause TYPE 2 DIABETES: Blood sugar elevated secondary to severe sepsis Continue Lantus Insulin sliding scale Pharmacy consulted for glycemic management OBSTRUCTIVE SLEEP APNEA Continue BiPAP at night HYPERTENSION Blood pressure stable Lasix resume On Lopressor with holding parameters SACRAL DECUBITUS ULCER STAGE I TO II. Present on admission Appreciate wound care consult. CODE STATUS: Full code DVT PROPHYLAXIS Moderate to high risk SubQ heparin DISPOSITION Presents with significant deconditioning/confusion/severe sepsis PT OT evaluation requested Was recently at [facility] for rehab, per patient had significant benefit May need rehab when medically stable Social service consulted for discharge planning Vital Signs: Date Time Temp Pulse Resp B/P (MAP) Pulse Ox O2 Delivery O2 Flow Rate FiO2 08/31/17 19:32 36.5 73 22 175/75 (108) 99 Nasal Cannula 4.0 08/31/17 16:00 Nasal Cannula 4.0 08/31/17 15:31 36.5 63 22 139/82 (101) 99 Nasal Cannula 4.0 08/31/17 12:00 Nasal Cannula 4.0 08/31/17 11:46 36.4 74 19 142/78 (99) 99 Nasal Cannula 2.0 08/31/17 08:10 36.5 72 22 122/60 (80) 96 Nasal Cannula 4.0 08/31/17 08:00 Nasal Cannula 4.0 08/31/17 04:00 Nasal Cannula 4.0 08/31/17 03:43 36.8 67 23 100/50 (67) 97 Nasal Cannula 4.0 08/31/17 00:00 Nasal Cannula 4.0 08/30/17 23:45 36.4 65 23 121/71 (88) 100 Nasal Cannula 4.0 Lab Results: Results Past 24 Hours Test 08/30/17 20:25 08/31/17 05:36 08/31/17 07:12 08/31/17 11:19 Range/Units Bedside Glucose 252 146 145 70-99 mg/dl Creatinine 1.39 0.60-1.40 mg/dl Est Creatinine Clear Calc Drug Dose 60.1 ml/min Estimated GFR () 56.7 Estimated GFR (Non- 48.9 Total Bilirubin 0.7 0.2-1 mg/dl Direct Bilirubin 0.2 0-0.2 mg/dl Aspartate Amino Transf (AST/SGOT) 26 15-37 U/L Alanine Aminotransferase (ALT/SGPT) 20 12-78 U/L Alkaline Phosphatase 109 45-117 U/L Total Protein 6.4 6.4-8.2 gm/dl Albumin 2.1 3.4-5.0 gm/dl Random Vancomycin Level 18.5 mcg/ml Test 08/31/17 16:29 Range/Units Bedside Glucose 108 70-99 mg/dl Microbiology Results 08/31/17 Blood Culture, Ordered Pending 08/31/17 Blood Culture, Ordered Pending
[2017-08-31] MEDS: CEFTRIAXONE SOD INJ 2,000 MG in DEXTROSE 5% 50ML 50 ML IV SCH (20:18)
[2017-08-31] MEDS: TAMSULOSIN HCL 0.4 MG CAP PO SCH (20:37)
[2017-08-31] MEDS: SIMVASTATIN 40 MG TAB PO SCH (20:38)
[2017-08-31] MEDS: INSULIN GLARGINE SOLOSTAR 100 UNITS/ML 3 ML PEN SQ SCH (20:41)
[2017-08-31 22:49] VITALS: BP 144/95; PULSE 73; TEMP 37.1; O2SAT 100
[2017-09-01 04:09] VITALS: BP 113/62; PULSE 83; TEMP 36.5; O2SAT 90
[2017-09-01] MEDS: HEPARIN SOD 5000 UNIT/0.5 ML CARP SQ SCH ×3 (05:54→20:56)
[2017-09-01 07:10] LABS: ALBUMIN 2.2 gm/dl (3.4-5.0); CREATININE 1.27 mg/dl (0.60-1.40)
[2017-09-01 07:13] LABS: TOTAL PROTEIN 6.6 gm/dl (6.4-8.2)
[2017-09-01 07:40] VITALS: BP 149/77; PULSE 78; TEMP 36.7; O2SAT 96
[2017-09-01] MEDS: ASCORBIC ACID 500 MG TAB PO SCH (07:49)
[2017-09-01] MEDS: GABAPENTIN 300 MG CAP PO SCH ×2 (07:49→20:51)
[2017-09-01] MEDS: MULTIVITAMIN TAB PO SCH (07:49)
[2017-09-01] MEDS: PANTOprazole SOD 40 MG TAB PO SCH (07:49)
[2017-09-01] MEDS: SIMVASTATIN 40 MG TAB PO SCH (07:49)
[2017-09-01] MEDS: ASPIRIN 81 MG ECTAB PO SCH (07:49)
[2017-09-01] MEDS: MAGNESIUM OXIDE 400 MG TAB PO SCH (07:49)
[2017-09-01] MEDS: VENLAFAXINE HCL 37.5 MG TAB PO SCH ×2 (07:49→20:51)
[2017-09-01] MEDS: CALCIUM 600MG + VIT D 400 IU TAB PO SCH (07:49)
[2017-09-01] MEDS: FINASTERIDE 5 MG TAB PO SCH (07:49)
[2017-09-01] MEDS: NYSTATIN/TRIAMCINOLONE CR 15 GM TUBE EXT SCH ×2 (07:50→20:51)
[2017-09-01] MEDS: METOPROLOL TARTRATE 25 MG TAB PO SCH ×2 (07:50→20:51)
[2017-09-01] MEDS: MICONAZOLE NITRATE POWDER 43 GM EXT SCH ×2 (07:51→20:51)
[2017-09-01] MEDS: INSULIN ASPART 100 UNITS/ML 3 ML PEN SC SCH ×4 (07:56→20:48)
[2017-09-01] MEDS ORDERED: FUROSEMIDE 40 MG TAB PO SCH (09:00)
[2017-09-01 11:52] VITALS: BP 137/90; PULSE 76; TEMP 36.3; O2SAT 96
--- NOTE | 2017-09-01 12:44 | Progress Note ---
Subjective Date of Service: Sep 01, 2017. Subjective Pt evaluation today including: conversation w/ patient, lab review, conversation w/ service delivery management consultant Pain: pt denies rodriguez pain but is somnolent Voiding: rodriguez catheter in place Problem List Medical Problems: (1) Acute urinary retention Status: Acute (2) Altered mental status Status: Acute (3) Altered mental status Status: Acute (4) Altered mental status Status: Acute (5) Anemia Status: Acute (6) Bronchitis Status: Acute (7) Cellulitis Status: Acute (8) Change in mental status Status: Acute (9) CHF (congestive heart failure) Status: Acute (10) CHF (congestive heart failure) Status: Acute (11) CHF (congestive heart failure) Status: Acute (12) CO2 retention Status: Acute (13) Complication of catheter Status: Acute (14) Congestive heart failure Status: Acute (15) Dystonic drug reaction Status: Acute (16) Failure to thrive Status: Acute (17) Hypercarbia Status: Acute (18) Hypoglycemia Status: Acute (19) Hypokalemia Status: Acute (20) Hypoxemia Status: Acute (21) Hypoxemia Status: Acute (22) Hypoxia Status: Acute (23) Hypoxia Status: Acute (24) Hypoxia Status: Acute (25) Lower abdominal pain Status: Acute (26) Malfunction of Rodriguez catheter Status: Acute (27) Pneumonia Status: Acute (28) Respiratory acidosis Status: Acute (29) Right flank pain Status: Acute (30) Sepsis Status: Acute (31) Shortness of breath Status: Acute (32) Symptoms involving urinary system Status: Acute (33) Urethral pain Status: Acute (34) Urinary retention Status: Acute (35) Urinary retention Status: Acute (36) Urinary tract infection Status: Acute (37) Urinary tract infection Status: Acute (38) Urinary tract infection Status: Acute (39) UTI (urinary tract infection) Status: Acute (40) UTI (urinary tract infection) Status: Acute (41) UTI (urinary tract infection) Status: Acute (42) UTI (urinary tract infection) Status: Acute (43) UTI (urinary tract infection) due to urinary indwelling catheter Status: Acute (44) Weakness Status: Acute Objective Vital Signs Date Time Temp Pulse Resp B/P (MAP) Pulse Ox O2 Delivery O2 Flow Rate FiO2 09/01/17 12:00 Nasal Cannula 4.0 09/01/17 11:52 36.3 76 20 137/90 (106) 96 Nasal Cannula 4.0 09/01/17 08:00 Nasal Cannula 4.0 09/01/17 07:40 36.7 78 22 149/77 (101) 96 Nasal Cannula 4.0 09/01/17 04:09 36.5 83 22 113/62 (79) 90 Nasal Cannula 4.0 09/01/17 04:00 Nasal Cannula 4.0 09/01/17 00:00 Nasal Cannula 4.0 08/31/17 22:49 37.1 73 22 144/95 (111) 100 Nasal Cannula 4.0 08/31/17 20:00 Nasal Cannula 4.0 08/31/17 19:32 36.5 73 22 175/75 (108) 99 Nasal Cannula 4.0 08/31/17 16:00 Nasal Cannula 4.0 08/31/17 15:31 36.5 63 22 139/82 (101) 99 Nasal Cannula 4.0 Laboratory Results Last 24 Hours Test 08/31/17 16:29 08/31/17 20:20 09/01/17 05:38 09/01/17 06:21 Bedside Glucose 108 mg/dl 120 mg/dl 123 mg/dl Creatinine 1.27 mg/dl Est Creatinine Clear Calc Drug Dose 65.5 ml/min Estimated GFR () 63.2 Estimated GFR (Non- 54.5 Total Bilirubin 0.4 mg/dl Direct Bilirubin 0.2 mg/dl Aspartate Amino Transf (AST/SGOT) 24 U/L Alanine Aminotransferase (ALT/SGPT) 20 U/L Alkaline Phosphatase 117 U/L Total Protein 6.6 gm/dl Albumin 2.2 gm/dl Test 09/01/17 11:19 Bedside Glucose 144 mg/dl Assessment and Plan leave jennifer in for now
--- NOTE | 2017-09-01 15:32 | Progress Note ---
Internal Med Progress Note Date of Service: Sep 01, 2017. Provider Documentation: SUBJECTIVE: pt more lucid today has moist productive cough denies of SOB had interrupted sleep last night , visiting OBJECTIVE: Vital Signs-as noted below Exam: General-obese, confused Eyes-sclera nonicteric, pupils reactive to light ENT-moist oral mucosa Neck-no JVD noted Lungs-positive rales at bilateral bases Heart-regular S1-S2 Abdomen-obese nontender, soft Extremities-right lower extremity: Positive erythema/increased warmth/tenderness Chronic venous stasis changes noted on the left, no evidence of inflammation or infection Neuro-generalized weakness, no focal neurological deficit Lab data as noted below. ASSESSMENT & PLAN: SEVERE SEPSIS/GRAM-NEGATIVE BACTEREMIA/E. COLI MULTIDRUG RESISTANT: Admitted with severe sepsis: Met criteria As patient presented with fever/ leukocytosis/tachycardia/tachypnea/hypotension/ acute renal failure/confusion Patient started with empiric broad-spectrum antibiotic with IV vancomycin/Zosyn Prior history of Pseudomonas and enterococcus urinary tract infection Ordered for UA and culture Patient is incontinent and confused to provide a clean-catch urine Unable to to put a Osorio catheter or straight cath by nursing due to history of BPH Urology consulted Osorio placed by Dr. Qureshi Urine culture catheterized sample no growth/patient was already been on IV antibiotic treatment Patient has been afebrile/blood pressure remained stable/WBC normal 08/27/17; 2 sets blood culture; gram-negative bacilli E. coli: Multidrug-resistant: Resistant to quinolone/ampicillin Sensitive to Rocephin/Invanz/imipenem Appreciate input from ID Antibiotic adjusted IV vancomycin/IV Zosyn discontinued Patient started with IV Rocephin 2 g daily Repeat blood culture on 08-29-17: Gram-negative bacilli Ordered for repeat blood cultures tomorrow Patient will need long-term IV antibiotics/ Will need PICC line HYPOXEMIA/RESPIRATORY DISTRESS: Respiratory status improved possible due to combination of decompensated CHF with diastolic dysfunction/CO2 retention in the setting of confusion and lethargy At present on oxygen via nasal cannula Continue broad-spectrum antibiotic as above Ordered for neb treatment ACUTE ON CHRONIC DIASTOLIC CONGESTIVE HEART FAILURE At present compensated Very hard to assess volume status due to patient's body habitus Outpatient Lasix and Zaroxolyn was kept on hold-In the setting of severe sepsis -risk of intravascular volume depletion remains high . Echo done in July 2017, ejection fraction was normal, grossly normal ejection fraction and valvular function. 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 Hameed Urology eval requested-appreciate input Osorio catheter placed by Dr. Qureshi Recommend patient to continue to keep Osorio catheter on discharge Have outpatient follow-up with Dr. Hameed-will need outpatient cystoscopy to evaluate urethral stricture CONFUSION/METABOLIC ENCEPHALOPATHY Due to severe sepsis/acute renal failure Mental status continues to improve With treatment of infection/correction of hypoxemia/resolution of renal High fall risk, ordered bed alarm, low boy bed Consider one-to-one observation in setting of agitation/worsening of confusion/ sundowning CARDIAC ARRHYTHMIA NOTED ON MONITOR Appreciate input from cardiology No evidence of A. fib noted Patient had frequent PAC/PVC possible secondary to sepsis/acute renal failure No cardiac intervention indicated Cardiology recommends to correct underlying cause TYPE 2 DIABETES: Blood sugar elevated secondary to severe sepsis Continue Lantus Insulin sliding scale Pharmacy consulted for glycemic management OBSTRUCTIVE SLEEP APNEA Continue BiPAP at night HYPERTENSION Blood pressure stable Lasix resume On Lopressor with holding parameters SACRAL DECUBITUS ULCER STAGE I TO II. Present on admission Appreciate wound care consult. CODE STATUS: Full code DVT PROPHYLAXIS Moderate to high risk SubQ heparin DISPOSITION Presents with significant deconditioning/confusion/severe sepsis PT OT evaluation requested Was recently at [facility] for rehab, per patient had significant benefit May need rehab when medically stable Social service consulted for discharge planning Vital Signs: Date Time Temp Pulse Resp B/P (MAP) Pulse Ox O2 Delivery O2 Flow Rate FiO2 09/02/17 16:00 Nasal Cannula 4.0 09/02/17 15:21 36.3 75 20 143/71 (95) 96 BiPAP 40 09/02/17 12:00 BiPAP 40 09/02/17 11:17 36.5 68 24 160/84 (109) 93 CPAP 09/02/17 08:00 BiPAP 40 09/02/17 07:12 36.7 66 20 150/62 (91) 95 CPAP 09/02/17 04:42 36.9 74 18 141/61 (87) 95 CPAP 40 4/23/18 04:00 BiPAP 40 09/02/17 02:09 73 15 97 BiPAP/CPAP 30 09/02/17 02:08 73 97 40 09/02/17 00:00 Nasal Cannula 3.0 09/01/17 23:22 37.9 83 25 97/49 (65) 98 Nasal Cannula 4.0 09/01/17 20:00 Nasal Cannula 3.0 09/01/17 19:23 37.1 96 17 169/92 (117) 98 Nasal Cannula 4.0 Lab Results: Results Past 24 Hours Test 09/01/17 20:13 09/02/17 00:38 09/02/17 04:58 09/02/17 06:48 Range/Units Bedside Glucose 102 136 70-99 mg/dl White Blood Count 6.08 4.8-10.8 K/uL Red Blood Count 4.39 4.7-6.1 M/uL Hemoglobin 8.7 14.0-18.0 g/dL Hematocrit 32.0 42-52 % Mean Corpuscular Volume 72.9 80-100 fL Mean Corpuscular Hemoglobin 19.8 25-34 pg Mean Corpuscular Hemoglobin Concent 27.2 32-36 g/dl Platelet Count 152 130-400 K/uL Mean Platelet Volume 9.2 7.4-10.4 fL Neutrophils (%) (Auto) 70.8 % Lymphocytes (%) (Auto) 15.6 % Monocytes (%) (Auto) 12.3 % Eosinophils (%) (Auto) 0.7 % Basophils (%) (Auto) 0.3 % Neutrophils # (Auto) 4.30 1.4-6.5 K/uL Lymphocytes # (Auto) 0.95 1.2-3.4 K/uL Monocytes # (Auto) 0.75 0.11-0.59 K/uL Eosinophils # (Auto) 0.04 0-0.5 K/uL Basophils # (Auto) 0.02 0-0.2 K/uL RDW Standard Deviation 48.5 36.4-46.3 fL RDW Coefficient of Variation 18.1 11.5-14.5 % Immature Granulocyte % (Auto) 0.3 % Immature Granulocyte # (Auto) 0.02 0.00-0.02 K/uL Red Blood Cell Morphology Unremarkable Arterial Blood pH 7.38 7.36 7.35-7.45 Arterial Blood Partial Pressure CO2 75 79 35-46 mmHg Arterial Blood Partial Pressure O2 103 66 80-95 mm/Hg Arterial Blood HCO3 43 43 19-24 mmol/L Arterial Blood Oxygen Saturation 95.8 88.8 90-95 % Arterial Blood Base Excess 15.2 15.6 -9-1.8 mEq/L Arterial Blood Gas Delivery 4 L 40% Khoa Test POS POS POS Sodium Level 141 136-145 mmol/L Potassium Level 3.4 3.5-5.1 mmol/L Chloride Level 96 98-107 mmol/L Carbon Dioxide Level 42 21-32 mmol/L Anion Gap 4.0 3-11 mmol/L Blood Urea Nitrogen 23 7-18 mg/dl Creatinine 1.09 0.60-1.40 mg/dl Est Creatinine Clear Calc Drug Dose 76.3 ml/min Estimated GFR () 76.0 Estimated GFR (Non- 65.6 BUN/Creatinine Ratio 21.4 10-20 Random Glucose 114 70-99 mg/dl Lactic Acid Level 1.0 0.4-2.0 mmol/L Calcium Level 8.4 8.5-10.1 mg/dl Magnesium Level 1.9 1.8-2.4 mg/dl Test 09/02/17 10:18 09/02/17 11:30 09/02/17 16:46 Range/Units Sodium Level 140 136-145 mmol/L Potassium Level 3.1 3.5-5.1 mmol/L Chloride Level 96 98-107 mmol/L Carbon Dioxide Level 44 21-32 mmol/L Anion Gap 0.0 3-11 mmol/L Blood Urea Nitrogen 20 7-18 mg/dl Creatinine 0.99 0.60-1.40 mg/dl Est Creatinine Clear Calc Drug Dose 84.0 ml/min Estimated GFR () 85.4 Estimated GFR (Non- 73.7 BUN/Creatinine Ratio 20.5 10-20 Random Glucose 105 70-99 mg/dl Calcium Level 8.6 8.5-10.1 mg/dl Bedside Glucose 133 98 70-99 mg/dl
[2017-09-01] MEDS ORDERED: FUROSEMIDE INJ 40 MG in SYRINGE 0 ML IV ONE (15:45)
--- NOTE | 2017-09-01 15:52 | DIAGNOSTIC IMAGING REPORT ---
CHEST ONE VIEW PORTABLE CLINICAL HISTORY: SOB /chf dyspnea COMPARISON STUDY: 08/27/2017 FINDINGS: Persistent cardiomegaly. Increased prominence of pulmonary vasculature. Diaphragms are smooth. IMPRESSION: Congestive heart failure slightly progressive from the prior study. The above report was generated using voice recognition software. It may contain grammatical, syntax or spelling errors. Electronically signed by: Madhu Aguilar M.D. 09/01/2017 3:51 PM Dictated Date/Time: 09/01/2017 3:51 PM
[2017-09-01 15:57] VITALS: BP 123/66; PULSE 76; TEMP 36.8; O2SAT 94
[2017-09-01 19:23] VITALS: BP 169/92; PULSE 96; TEMP 37.1; O2SAT 98
[2017-09-01] MEDS: CEFTRIAXONE SOD INJ 2,000 MG in DEXTROSE 5% 50ML 50 ML IV SCH (19:51)
[2017-09-01] MEDS: TAMSULOSIN HCL 0.4 MG CAP PO SCH (20:51)
[2017-09-01] MEDS: INSULIN GLARGINE SOLOSTAR 100 UNITS/ML 3 ML PEN SQ SCH (20:55)
[2017-09-01] MEDS: POTASSIUM CHLORIDE 20 MEQ TABCR PO SCH (21:45)
[2017-09-01] MEDS: HALOPERIDOL LACTATE 5 MG/ML 1 ML VIAL IM PRN (22:40)
[2017-09-01 23:22] VITALS: BP 97/49; PULSE 83; TEMP 37.9; O2SAT 98
[2017-09-02] VITALS (9 sets, daily range): BP systolic 118–160; BP diastolic 61–92; PULSE 66–79; TEMP 36.3–37.1; O2SAT 91–97
[2017-09-02] MEDS ORDERED: ACETAMINOPHEN 325 MG TAB PO ONE (00:07)
[2017-09-02] MEDS ORDERED: ALBUT/IPRATROP 3MG/0.5MG NEB 3 ML VIAL INH STA (00:12)
[2017-09-02] MEDS ORDERED: ALBUT/IPRATROP 3MG/0.5MG NEB 3 ML VIAL INH PRN (00:15)
[2017-09-02 01:08] LABS: CALCIUM 8.4 mg/dl (8.5-10.1); CREATININE 1.09 mg/dl (0.60-1.40); POTASSIUM 3.4 mmol/L (3.5-5.1)
[2017-09-02] MEDS ORDERED: POTASSIUM CHLORIDE 10 MEQ TABCR PO STA (01:19)
[2017-09-02 01:21] LABS: HEMOGLOBIN 8.7 g/dL (14.0-18.0); MEAN CELL VOLUME 72.9 fL (80-100); MEAN CORPUSCULAR HEMOGLOBIN 19.8 pg (25-34); MEAN CORPUSCULAR HGB CONC 27.2 g/dl (32-36); MEAN PLATELET VOLUME 9.2 fL (7.4-10.4); PLATELET COUNT 152 K/uL (130-400); RED CELL DISTRIBUTION WIDTH CV 18.1 % (11.5-14.5); RED CELL DISTRIBUTION WIDTH SD 48.5 fL (36.4-46.3); WHITE BLOOD COUNT 6.08 K/uL (4.8-10.8)
[2017-09-02 01:22] LABS: BASO % 0.3 %; BASO ABS # 0.02 K/uL (0-0.2); EOS % 0.7 %; EOS ABS # 0.04 K/uL (0-0.5); IG# 0.02 K/uL (0.00-0.02); LYMPH % 15.6 %; LYMPH ABS # 0.95 K/uL (1.2-3.4); MONO % 12.3 %; MONO ABS # 0.75 K/uL (0.11-0.59); NEUT % 70.8 %
[2017-09-02] MEDS ORDERED: MAGNESIUM SULFATE 1GM / D5W 100 ML IV STA (01:22)
[2017-09-02] MEDS ORDERED: MAGNESIUM SULFATE 1GM / D5W 1 GM in PREMIXED IN D5W 100 ML IV ONE (01:30)
[2017-09-02] MEDS ORDERED: FUROSEMIDE INJ 40 MG in SYRINGE 0 ML IV STA (01:37)
[2017-09-02] MEDS: HEPARIN SOD 5000 UNIT/0.5 ML CARP SQ SCH ×3 (06:04→20:39)
--- NOTE | 2017-09-02 06:50 | DIAGNOSTIC IMAGING REPORT ---
CHEST ONE VIEW PORTABLE CLINICAL HISTORY: Hypoxia COMPARISON STUDY: 09/01/2017 FINDINGS: The heart remains enlarged. There is radiographic evidence of pulmonary vascular congestion. There is no lobar consolidation.[ IMPRESSION: Cardiomegaly and radiographic evidence of mild congestive failure/fluid overload. No evidence of acute parenchymal consolidation Electronically signed by: Oliverio Kramer M.D. 09/02/2017 6:48 AM Dictated Date/Time: 09/02/2017 6:48 AM
[2017-09-02] MEDS: INSULIN ASPART 100 UNITS/ML 3 ML PEN SC SCH ×4 (07:00→20:38)
[2017-09-02] MEDS ORDERED: FUROSEMIDE INJ 40 MG in SYRINGE 0 ML IV SCH ×2 (09:00→21:00)
[2017-09-02] MEDS: ASPIRIN 81 MG ECTAB PO SCH (09:11)
[2017-09-02] MEDS: GABAPENTIN 300 MG CAP PO SCH (09:11)
[2017-09-02] MEDS: ASCORBIC ACID 500 MG TAB PO SCH (09:11)
[2017-09-02] MEDS: FINASTERIDE 5 MG TAB PO SCH (09:11)
[2017-09-02] MEDS: CALCIUM 600MG + VIT D 400 IU TAB PO SCH (09:11)
[2017-09-02] MEDS: MAGNESIUM OXIDE 400 MG TAB PO SCH (09:11)
[2017-09-02] MEDS: VENLAFAXINE HCL 37.5 MG TAB PO SCH ×2 (09:12→20:35)
[2017-09-02] MEDS: MULTIVITAMIN TAB PO SCH (09:12)
[2017-09-02] MEDS: PANTOprazole SOD 40 MG TAB PO SCH (09:12)
[2017-09-02] MEDS: METOPROLOL TARTRATE 25 MG TAB PO SCH ×2 (09:12→20:36)
[2017-09-02] MEDS: MICONAZOLE NITRATE POWDER 43 GM EXT SCH ×2 (09:13→20:34)
[2017-09-02] MEDS: NYSTATIN/TRIAMCINOLONE CR 15 GM TUBE EXT SCH ×2 (09:13→20:35)
[2017-09-02] MEDS: POTASSIUM CHLORIDE 20 MEQ TABCR PO SCH ×2 (09:14→20:35)
[2017-09-02 10:55] LABS: CALCIUM 8.6 mg/dl (8.5-10.1); CREATININE 0.99 mg/dl (0.60-1.40); POTASSIUM 3.1 mmol/L (3.5-5.1)
--- NOTE | 2017-09-02 10:56 | Pharmacy Progress Note ---
Pharmacy Glycemic Short Note 2 Date of Service Sep 02, 2017. OUTPATIENT ANTIDIABETIC REGIMEN: * Lantus 25 units SQ qPM * Novolog 10 units SQ TID with meals * HbA1c: pending w/ am labs (04/29/17: 7.9%) Item Value Date Time Bedside Glucose 136 mg/dl H 09/02/17 0648 Bedside Glucose 102 mg/dl H 09/01/172012 Bedside Glucose 115 mg/dl H 09/01/17 1644 Bedside Glucose 144 mg/dl H 09/01/17 1119 Bedside Glucose 123 mg/dl H 09/01/17 0621 ASSESSMENT: 09/02/17 * BSGs have ranged 102-144 over the last 24 hours * Fasting BSG 136 with 17 units Lantus on board. Fasting BSGs have been at goal with 17 units Lantus on board last 3 days. As mental status and diet continue to improve he may ultimately require a slightly higher dose of basal insulin. Continuing the current HS Lantus scale is reasonable. * Post-prandial BSGs controlled well with current CF and CR * Requiring ~33-39units/day while consuming 3 meals PLAN FOR INPATIENT GLYCEMIC CONTROL: * Basal insulin (no change) * Lantus 17 units SQ HS * Will give increased dose of 22 units if BSG > 180 mg/dl * Bolus insulin (no changes) * NovoLog per scale ACHS or Q6hrs while NPO * Goal Range: Low 110 mg/dL - High 140 mg/dL * Correction Factor: 25 mg/dL/unit * Nutritional / Prandial insulin per carb ratio of 1 unit per 8 grams CHO consumed PLAN FOR DISCHARGE: * A1c 9.1%, would recommend prompt f/u with PCP or managing manager on discharge to adjust outpt medication regimen. His A1c has increased over the last 4 months. His inpatient insulin requirements are much lower vs outpt requirements , perhaps compliance with diet and medications are partially to blame?
--- NOTE | 2017-09-02 14:52 | Infectious Disease Progress Nt ---
Progress Note Date of Service Sep 02, 2017. Subjective Pt evaluation today including: conversation w/ patient, physical exam, chart review, lab review, review of studies, conversation w/ financial reporting consultant, review of inpatient medication list Patient alert but remains confused. Offers no new specific complaints. Remains afebrile. Follow-up blood cultures no growth to date. All Other Systems: Reviewed and Negative Medications Current Inpatient Medications Medications (Trade) Dose Ordered Sig/Bj Route Start Time Stop Time Status Last Admin Dose Admin Heparin Sodium (Porcine) (Heparin Sq 5000 Unit/0.5ml) 5,000 unit Q8 SQ 08/27/17 22:00 09/26/17 21:59 09/02/17 06:04 5,000 UNIT Acetaminophen (Tylenol Tab) 650 mg Q4H PRN PO 08/27/17 20:30 09/26/17 20:29 08/31/17 03:51 650 MG Al Hydrox/Mg Hydrox/Simethicone (Maalox Max Susp) 15 ml Q4H PRN PO 08/27/17 20:30 09/26/17 20:29 Ondansetron HCl (Zofran Inj) 4 mg Q6H PRN IV 08/27/17 20:30 09/26/17 20:29 Nitroglycerin (Nitrostat Tab) 0.4 mg UD PRN SL 08/27/17 20:30 09/26/17 20:29 Polyethylene (Miralax Powder Packet) 17 gm DAILY PRN PO 08/27/17 20:30 09/26/17 20:29 Ascorbic Acid (Vitamin C Tab) 500 mg DAILY PO 08/28/17 09:00 09/27/17 08:59 09/02/17 09:11 500 MG Aspirin (Ecotrin Tab) 81 mg DAILY PO 08/28/17 09:00 09/27/17 08:59 09/02/17 09:11 81 MG Finasteride (Proscar Tab) 5 mg QAM PO 08/28/17 09:00 09/27/17 08:59 09/02/17 09:11 5 MG Folic Acid (Folvite Tab) 1 mg DAILY PO 08/28/17 09:00 09/27/17 08:59 09/02/17 09:11 1 MG Gabapentin (Neurontin Cap) 300 mg BID PO 08/27/17 21:00 09/26/17 20:59 09/02/17 09:11 300 MG Magnesium Oxide (Mag-Ox Tab) 400 mg DAILY PO 08/28/17 09:00 09/27/17 08:59 09/02/17 09:11 400 MG Metoprolol Tartrate (Lopressor Tab) 12.5 mg BID PO 08/27/17 21:00 09/26/17 20:59 09/02/17 09:12 12.5 MG Multivitamins (Multivitamin Tab) 1 tab DAILY PO 08/28/17 09:00 09/27/17 08:59 09/02/17 09:12 1 TAB Nystatin/ Triamcinolone Acetonide (Mycogen II Crm) 1 appln BID EXT 08/27/17 21:00 09/26/17 20:59 09/02/17 09:13 1 APPLN Potassium Chloride (Klor-Con Tab) 20 meq BID PO 08/27/17 21:00 09/26/17 20:59 Future hold 09/02/17 09:14 20 MEQ Simvastatin (Zocor Tab) 40 mg QPM PO 08/27/17 21:00 09/26/17 20:59 09/01/17 07:49 40 MG Tamsulosin HCl (Flomax Cap) 0.4 mg HS PO 08/27/17 21:00 09/26/17 20:59 09/01/17 20:51 0.4 MG Venlafaxine HCl (effeXOR TAB) 75 mg BID PO 08/27/17 21:00 09/26/17 20:59 09/02/17 09:12 75 MG Calcium/Vitamin D (Caltrate Plus Tab) 1 tab DAILY PO 08/28/17 09:00 09/27/17 08:59 09/02/17 09:11 1 TAB Pantoprazole Sodium (Protonix Tab) 40 mg QAM PO 08/28/17 09:00 09/27/17 08:59 09/02/17 09:12 40 MG Furosemide 40 mg/ Syringe 4 ml @ 4 mls/min BID17 IV 08/27/17 21:00 09/26/17 20:59 Future Hold 08/27/17 22:29 4 MLS/MIN Insulin Aspart (novoLOG ASPART) SLIDING SCALE G... ACHS SC 08/27/17 21:00 09/26/17 20:59 09/01/17 17:01 3 UNITS Ipratropium [place] (Atrovent 0.02% 0.5MG/2.5ML Neb) 0.5 mg Q4 PRN INH 08/28/17 08:30 09/27/17 08:29 Levalbuterol (Xopenex 1.25MG/ 0.5ML Neb) 1.25 mg Q4 PRN INH 08/28/17 08:30 09/27/17 08:29 Miscellaneous Information (Consult Glycemic Management Pharmacy) 1 ea UD PRN N/A 08/28/17 14:27 09/27/17 14:26 Haloperidol Lactate (Haldol Inj) 5 mg Q6 PRN IM 08/29/17 10:00 09/28/17 09:59 09/01/17 22:40 5 MG Miconazole Nitrate (Desenex Powder) 1 appln BID EXT 08/29/17 21:00 09/28/17 20:59 09/02/17 09:13 1 APPLN Miconazole Nitrate (Desenex Powder) 1 appln PRN PRN EXT 08/29/17 15:30 09/28/17 15:29 Insulin Glargine (Lantus Solostar Pen) See Protocol Text HS SQ 08/30/17 21:00 09/29/17 20:59 09/01/17 20:55 17 UNITS Ceftriaxone Sodium 2000 mg/ Dextrose 70 ml @ 100 mls/hr Q24H IV 08/31/17 20:00 09/14/17 19:59 09/01/17 19:51 100 MLS/HR Albuterol/ Ipratropium (Duoneb) 3 ml Q2H PRN INH 09/02/17 00:15 10/02/17 00:14 Furosemide 40 mg/ Syringe 4 ml @ 4 mls/min Q12 IV 09/02/17 21:00 10/02/17 08:59 Objective Vital Signs Date Time Temp Pulse Resp B/P (MAP) Pulse Ox O2 Delivery O2 Flow Rate FiO2 09/02/17 12:00 BiPAP 40 09/02/17 11:17 36.5 68 24 160/84 (109) 93 CPAP 09/02/17 08:00 BiPAP 40 09/02/17 07:12 36.7 66 20 150/62 (91) 95 CPAP 09/02/17 04:42 36.9 74 18 141/61 (87) 95 CPAP 40 09/02/17 04:00 BiPAP 40 09/02/17 02:09 73 15 97 BiPAP/CPAP 30 09/02/17 02:08 73 97 40 09/02/17 00:00 Nasal Cannula 3.0 09/01/17 23:22 37.9 83 25 97/49 (65) 98 Nasal Cannula 4.0 09/01/17 20:00 Nasal Cannula 3.0 09/01/17 19:23 37.1 96 17 169/92 (117) 98 Nasal Cannula 4.0 09/01/17 16:00 Nasal Cannula 4.0 09/01/17 15:57 36.8 76 17 123/66 (85) 94 Nasal Cannula 4.0 Physical Exam General Appearance: WD/WN, no apparent distress Eyes: normal inspection, EOMI, sclerae normal ENT: normal ENT inspection, TMs normal Neck: supple, no adenopathy, thyroid normal, trachea midline Respiratory/Chest: chest non-tender, lungs clear, normal breath sounds, no respiratory distress Cardiovascular: regular rate, rhythm, no gallop, no murmur Abdomen: normal bowel sounds, non tender, soft, no organomegaly Extremities: non-tender, no calf tenderness Neurologic/Psychiatric: alert, + disoriented Skin: normal color, no rash, + pertinent finding (Slightly improved right leg erythema) Lymphatic: no adenopathy Laboratory Results RUN DATE: 09/02/17 LAB PAGE 1 RUN TIME: 707 Specimen Inquiry PATIENT: JAKE LEWIS LOC: [facility] U # : [id number] AGE/SX: 77/M ROOM: E210 REG : 08/27/[address]: Radha Youssef M.D. : 1940 BED: 1 DIS : STATUS: ADM IN TLOC: SPEC #: [id number] JENNIFER: 08/31/17 STATUS: RES REQ #: [id number] RECD: 08/31/[address]: Radha Youssef M.D. SOURCE: BLOOD ENTR: 08/31/17-[address]: Derek Martinez MD SPDC: Minh Nair, Syed Schuler , D.OMichael Ortez MD Yingling, Christopher T. M.D. ORDERED: BLOOD CULTURE Procedure Result Verified Site BLD CULT Preliminary 09/02/17-706 NO GROWTH TO DATE. Last 24 Hours Test 09/01/17 15:44 09/01/17 16:44 09/01/17 20:13 09/02/17 00:38 Pro-B-Type Natriuretic Peptide 58944 pg/ml Bedside Glucose 115 mg/dl 102 mg/dl White Blood Count 6.08 K/uL Red Blood Count 4.39 M/uL Hemoglobin 8.7 g/dL Hematocrit 32.0 % Mean Corpuscular Volume 72.9 fL Mean Corpuscular Hemoglobin 19.8 pg Mean Corpuscular Hemoglobin Concent 27.2 g/dl Platelet Count 152 K/uL Mean Platelet Volume 9.2 fL Neutrophils (%) (Auto) 70.8 % Lymphocytes (%) (Auto) 15.6 % Monocytes (%) (Auto) 12.3 % Eosinophils (%) (Auto) 0.7 % Basophils (%) (Auto) 0.3 % Neutrophils # (Auto) 4.30 K/uL Lymphocytes # (Auto) 0.95 K/uL Monocytes # (Auto) 0.75 K/uL Eosinophils # (Auto) 0.04 K/uL Basophils # (Auto) 0.02 K/uL RDW Standard Deviation 48.5 fL RDW Coefficient of Variation 18.1 % Immature Granulocyte % (Auto) 0.3 % Immature Granulocyte # (Auto) 0.02 K/uL Red Blood Cell Morphology Unremarkable Arterial Blood pH 7.38 Arterial Blood Partial Pressure CO2 75 mmHg Arterial Blood Partial Pressure O2 103 mm/Hg Arterial Blood HCO3 43 mmol/L Arterial Blood Oxygen Saturation 95.8 % Arterial Blood Base Excess 15.2 mEq/L Arterial Blood Gas Delivery 4 L Khoa Test POS Sodium Level 141 mmol/L Potassium Level 3.4 mmol/L Chloride Level 96 mmol/L Carbon Dioxide Level 42 mmol/L Anion Gap 4.0 mmol/L Blood Urea Nitrogen 23 mg/dl Creatinine 1.09 mg/dl Est Creatinine Clear Calc Drug Dose 76.3 ml/min Estimated GFR () 76.0 Estimated GFR (Non- 65.6 BUN/Creatinine Ratio 21.4 Random Glucose 114 mg/dl Lactic Acid Level 1.0 mmol/L Calcium Level 8.4 mg/dl Magnesium Level 1.9 mg/dl Test 09/02/17 04:58 09/02/17 06:48 09/02/17 10:18 09/02/17 11:30 Arterial Blood pH 7.36 Arterial Blood Partial Pressure CO2 79 mmHg Arterial Blood Partial Pressure O2 66 mm/Hg Arterial Blood HCO3 43 mmol/L Arterial Blood Oxygen Saturation 88.8 % Arterial Blood Base Excess 15.6 mEq/L Arterial Blood Gas Delivery 40% Khoa Test POS Bedside Glucose 136 mg/dl 133 mg/dl Sodium Level 140 mmol/L Potassium Level 3.1 mmol/L Chloride Level 96 mmol/L Carbon Dioxide Level 44 mmol/L Anion Gap 0.0 mmol/L Blood Urea Nitrogen 20 mg/dl Creatinine 0.99 mg/dl Est Creatinine Clear Calc Drug Dose 84.0 ml/min Estimated GFR () 85.4 Estimated GFR (Non- 73.7 BUN/Creatinine Ratio 20.5 Random Glucose 105 mg/dl Calcium Level 8.6 mg/dl [~ rep ct add3]] CHEST ONE VIEW PORTABLE CLINICAL HISTORY: Hypoxia COMPARISON STUDY: 09/01/2017 FINDINGS: The heart remains enlarged. There is radiographic evidence of pulmonary vascular congestion. There is no lobar consolidation.[ IMPRESSION: Cardiomegaly and radiographic evidence of mild congestive failure/fluid overload. No evidence of acute parenchymal consolidation Electronically signed by: Oliverio Kramer M.D. 09/02/2017 6:48 AM Dictated Date/Time: 09/02/2017 6:48 AM The status of this report is Signed. Draft = Not yet reviewed or approved by Radiologist. Signed = Reviewed and approved by Radiologist. Assessment and Plan E. coli bacteremia with encephalopathy, likely from urinary tract source. Patient should be able to be treated with ceftriaxone 2 gm daily. Recommend 7 days of IV antibiotics with transition to oral if remains afebrile.
[2017-09-02] MEDS: HALOPERIDOL LACTATE 5 MG/ML 1 ML VIAL IM PRN (17:05)
--- NOTE | 2017-09-02 19:14 | Progress Note ---
Internal Med Progress Note Date of Service: Sep 02, 2017. Provider Documentation: SUBJECTIVE: having coarse cough still confused, trying to get out of bed 1:1 sitter present OBJECTIVE: Vital Signs-as noted below Exam: General-obese, confused Eyes-sclera nonicteric, pupils reactive to light ENT-moist oral mucosa Neck-no JVD noted Lungs-positive rales at bilateral bases Heart-regular S1-S2 Abdomen-obese nontender, soft Extremities-right lower extremity: Positive erythema/increased warmth/tenderness Chronic venous stasis changes noted on the left, no evidence of inflammation or infection Neuro-generalized weakness, no focal neurological deficit Lab data as noted below. ASSESSMENT & PLAN: SEVERE SEPSIS/GRAM-NEGATIVE BACTEREMIA/E. COLI MULTIDRUG RESISTANT: Admitted with severe sepsis: Met criteria As patient presented with fever/ leukocytosis/tachycardia/tachypnea/hypotension/ acute renal failure/confusion Patient started with empiric broad-spectrum antibiotic with IV vancomycin/Zosyn Prior history of Pseudomonas and enterococcus urinary tract infection Ordered for UA and culture Patient is incontinent and confused to provide a clean-catch urine Unable to to put a Osorio catheter or straight cath by nursing due to history of BPH Urology consulted Osorio placed by Dr. Qureshi Urine culture catheterized sample no growth/patient was already been on IV antibiotic treatment Patient has been afebrile/blood pressure remained stable/WBC normal 08/27/17; 2 sets blood culture; gram-negative bacilli E. coli: Multidrug-resistant: Resistant to quinolone/ampicillin Sensitive to Rocephin/Invanz/imipenem Appreciate input from ID Antibiotic adjusted IV vancomycin/IV Zosyn discontinued Patient started with IV Rocephin 2 g daily Repeat blood culture on 08-29-17: Gram-negative bacilli Blood culture : now growth ordered for PICC Line per ID : E. coli bacteremia with encephalopathy , likely from urinary tract source. Patient should be able to be treated with ceftriaxone 2 gm daily. Recommend 7 days of IV antibiotics with transition to oral if remains afebrile. HYPOXEMIA/RESPIRATORY DISTRESS: Respiratory status improved possible due to combination of decompensated CHF with diastolic dysfunction/CO2 retention in the setting of confusion and lethargy At present on oxygen via nasal cannula Continue broad-spectrum antibiotic as above cont Neb tx ACUTE ON CHRONIC DIASTOLIC CONGESTIVE HEART FAILURE Outpatient Lasix and Zaroxolyn was kept on hold-In the setting of severe sepsis -risk of intravascular volume depletion remains high . Echo done in July 2017, ejection fraction was normal, grossly normal ejection fraction and valvular function. 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 Hameed Urology eval requested-appreciate input Osorio catheter placed by Dr. Qureshi Recommend patient to continue to keep Osorio catheter on discharge Have outpatient follow-up with Dr. Hameed-will need outpatient cystoscopy to evaluate urethral stricture CONFUSION/METABOLIC ENCEPHALOPATHY Due to severe sepsis/acute renal failure Mental status continues to improve With treatment of infection/correction of hypoxemia/resolution of renal High fall risk, ordered bed alarm, low boy bed Consider one-to-one observation in setting of agitation/worsening of confusion/ sundowning CARDIAC ARRHYTHMIA NOTED ON MONITOR Appreciate input from cardiology No evidence of A. fib noted Patient had frequent PAC/PVC possible secondary to sepsis/acute renal failure No cardiac intervention indicated Cardiology recommends to correct underlying cause TYPE 2 DIABETES: Blood sugar elevated secondary to severe sepsis Continue Lantus Insulin sliding scale Pharmacy consulted for glycemic management OBSTRUCTIVE SLEEP APNEA Continue BiPAP at night HYPERTENSION Blood pressure stable Lasix resume On Lopressor with holding parameters SACRAL DECUBITUS ULCER STAGE I TO II. Present on admission Appreciate wound care consult. CODE STATUS: Full code DVT PROPHYLAXIS Moderate to high risk SubQ heparin DISPOSITION Discussed with Cherie Bowen for discharge planning - pt will need skilled rehab does not want to pt to go to [facility] for rehab wants pt to have skilled rehab [facility] /then any other place in [place] that is available Vital Signs: Date Time Temp Pulse Resp B/P (MAP) Pulse Ox O2 Delivery O2 Flow Rate FiO2 09/07/17 07:13 36.9 88 24 127/75 (92) 94 Nasal Cannula 4.0 09/07/17 06:50 86 20 93 Nasal Cannula 4.0 09/07/17 04:00 BiPAP 6.0 09/07/17 03:38 37.0 63 20 112/67 (82) 100 Nasal Cannula 4.0 Humidified Oxygen 09/07/17 01:45 86 20 99 Nasal Cannula 4.0 09/07/17 00:00 BiPAP 6.0 09/06/17 22:59 37.0 85 20 120/72 (88) 91 CPAP 09/06/17 20:13 110 124/65 (84) 09/06/17 20:00 96 Nasal Cannula 4.0 09/06/17 19:11 36.8 111 24 174/64 (100) 94 3.0 09/06/17 18:44 90 18 98 Nasal Cannula 4.0 09/06/17 16:00 96 Nasal Cannula 4.0 09/06/17 14:18 81 18 94 Nasal Cannula 4.0 09/06/17 14:11 36.9 91 20 137/78 (97) 92 Nasal Cannula 4.0 09/06/17 12:00 96 Nasal Cannula 6.0 Lab Results: Results Past 24 Hours Test 09/06/17 11:39 09/06/17 16:22 09/06/17 20:16 09/07/17 05:27 Range/Units Bedside Glucose 238 166 161 70-99 mg/dl White Blood Count 8.01 4.8-10.8 K/uL Red Blood Count 4.71 4.7-6.1 M/uL Hemoglobin 9.4 14.0-18.0 g/dL Hematocrit 34.3 42-52 % Mean Corpuscular Volume 72.8 80-100 fL Mean Corpuscular Hemoglobin 20.0 25-34 pg Mean Corpuscular Hemoglobin Concent 27.4 32-36 g/dl RDW Standard Deviation 50.8 36.4-46.3 fL RDW Coefficient of Variation 19.4 11.5-14.5 % Platelet Count 212 130-400 K/uL Mean Platelet Volume 9.4 7.4-10.4 fL Test 09/07/17 07:40 09/07/17 08:10 Range/Units Bedside Glucose 122 70-99 mg/dl Sodium Level 141 136-145 mmol/L Potassium Level 3.8 3.5-5.1 mmol/L Chloride Level 100 98-107 mmol/L Carbon Dioxide Level 40 21-32 mmol/L Anion Gap 2.0 3-11 mmol/L Blood Urea Nitrogen 16 7-18 mg/dl Creatinine 0.99 0.60-1.40 mg/dl Est Creatinine Clear Calc Drug Dose 78.8 ml/min Estimated GFR () 85.4 Estimated GFR (Non- 73.7 BUN/Creatinine Ratio 15.9 10-20 Random Glucose 117 70-99 mg/dl Calcium Level 8.5 8.5-10.1 mg/dl
[2017-09-02] MEDS: TAMSULOSIN HCL 0.4 MG CAP PO SCH (20:35)
[2017-09-02] MEDS: CEFTRIAXONE SOD INJ 2,000 MG in DEXTROSE 5% 50ML 50 ML IV SCH (20:35)
[2017-09-02] MEDS: SIMVASTATIN 40 MG TAB PO SCH (20:36)
[2017-09-02] MEDS: INSULIN GLARGINE SOLOSTAR 100 UNITS/ML 3 ML PEN SQ SCH (20:39)
[2017-09-02] MEDS ORDERED: NURSING VERBAL MED ORDER ONE (21:00)
[2017-09-02] MEDS ORDERED: HALOPERIDOL LACTATE 5 MG/ML 1 ML VIAL IM PRN (21:15)
[2017-09-02] MEDS ORDERED: FUROSEMIDE INJ 20 MG in SYRINGE 0 ML IV STA (23:24)
[2017-09-02] MEDS ORDERED: LEVALBUTEROL/IPRATROPIUM NEB INH STA (23:33)
[2017-09-03] VITALS (12 sets, daily range): BP systolic 102–176; BP diastolic 51–87; PULSE 79–91; TEMP 36.6–37; O2SAT 90–99
[2017-09-03] MEDS ORDERED: FUROSEMIDE 40 MG/4 ML VIAL IV STA ×2 (00:03→11:08)
[2017-09-03] MEDS ORDERED: IPRATROPIUM BROMIDE NEB SOLN 0.02% 2.5 ML VIAL INH STA (00:05)
[2017-09-03] MEDS ORDERED: LEVALBUTEROL 1.25MG/0.5ML NEB INH STA (00:05)
[2017-09-03] MEDS: LEVALBUTEROL 1.25MG/0.5ML NEB INH SCH ×4 (01:28→19:12)
[2017-09-03] MEDS: IPRATROPIUM BROMIDE NEB SOLN 0.02% 2.5 ML VIAL INH SCH ×4 (01:28→19:16)
[2017-09-03] MEDS ORDERED: LEVALBUTEROL/IPRATROPIUM NEB INH SCH (03:00)
[2017-09-03 04:37] LABS: CALCIUM 8.5 mg/dl (8.5-10.1); CREATININE 0.85 mg/dl (0.60-1.40); POTASSIUM 3.5 mmol/L (3.5-5.1)
[2017-09-03] MEDS ORDERED: POTASSIUM CHLORIDE 10 MEQ TABCR PO STA (05:00)
[2017-09-03] MEDS: MAGNESIUM SULFATE 1GM / D5W 1 GM in PREMIXED IN D5W 100 ML IV SCH ×2 (05:35→05:37)
[2017-09-03] MEDS: HEPARIN SOD 5000 UNIT/0.5 ML CARP SQ SCH ×3 (05:57→20:28)
[2017-09-03] MEDS: INSULIN ASPART 100 UNITS/ML 3 ML PEN SC SCH ×4 (07:00→20:27)
[2017-09-03] MEDS ORDERED: FUROSEMIDE 40 MG TAB PO SCH (09:00)
[2017-09-03] MEDS: MICONAZOLE NITRATE POWDER 43 GM EXT SCH ×2 (09:42→20:05)
[2017-09-03] MEDS: NYSTATIN/TRIAMCINOLONE CR 15 GM TUBE EXT SCH ×2 (09:42→20:06)
--- NOTE | 2017-09-03 10:38 | DIAGNOSTIC IMAGING REPORT ---
SINGLE VIEW CHEST CLINICAL HISTORY: Worsening dyspnea. FINDINGS: An AP, portable, upright chest radiograph is compared to study dated 09/02/2017. The examination is degraded by portable technique, large body habitus, and patient rotation. A right PICC line as been placed. The tip of the catheter projects over the right atrium. The heart is enlarged and there is atherosclerotic calcification of the thoracic ureter. There is pulmonary vascular congestion. Bilateral airspace opacities likely represent interstitial edema. Trace pleural effusions are suspected. There is bibasilar atelectasis. No pneumothorax is seen. The skeletal structures are osteopenic. The bony thorax is grossly intact. Advanced arthritic change is seen in the shoulders. IMPRESSION: 1. Cardiomegaly with evidence of congestive failure. This has worsened from yesterday. 2. Bilateral airspace opacities likely represent interstitial edema. Correlate clinically for evidence of a superimposed infectious/inflammatory pneumonitis. 3. Suspect small pleural effusions. 4. A right PICC line has been placed. The tip of the catheter projects over the right atrium. Electronically signed by: Porfirio Santillan M.D. 09/03/2017 10:36 AM Dictated Date/Time: 09/03/2017 10:34 AM
[2017-09-03] MEDS ORDERED: FUROSEMIDE INJ 40 MG in SYRINGE 0 ML IV SCH (11:30)
--- NOTE | 2017-09-03 15:15 | PULMONARY CONSULTATION ---
DATE OF CONSULTATION: 09/03/2017 Pulmonary consultation TIME: 1:45 p.m. TIME OF CONSULTATION: Performed at 11:20 a.m. REPORT OF CONSULTATION: The patient was seen in room 210. He is a 77-year-old male who was admitted on 08/27/2017 due to change in mental status. He was more lethargic than usual. The patient has had numerous hospital stays over the past 6 months. This has been approximately 5 or 6 admissions. He was recently discharged on 08/06/2017 to [facility]. He was discharged back to home. He has had ambulatory dysfunction. He has had an indwelling Osorio catheter. He has had recurring infections in the urinary tract with pseudomonas and enterococcus. The patient has a history of COPD, restrictive lung disease, obstructive sleep apnea for which he has been noncompliant, and pulmonary hypertension. He also has a history of chronic diastolic congestive heart failure. He has had numerous other admissions with change in mental status and weakness. At this time, the patient is totally unresponsive. Nursing staff tells me he has been waxing and waning. Three days ago and 2 days ago by notes he was fairly alert and awake. Yesterday more lethargic and today very lethargic. He did have a CT of the head on admission that was unremarkable. As part of the evaluation, he had a blood gas done today in the clinical associate hours that showed a pH of 7.41 with a pCO2 of 85 and a pO2 of 79. This was done reportedly with BiPAP, although I am told he did not wear it all that much last night. The patient as noted currently is unresponsive. He is nonverbal. Although his pCO2 was very high, in light of the fact his pH is normal, this would indicate that his pCO2 is always high. Thus, I am not convinced the elevated CO2 is responsible for his mental status change. He is unable to give me any history at present. As recently as early July he was hospitalized and had a blood gas at that time showing a pCO2 of 65 and actually his pH was 7.33. That would maintain that his baseline pCO2 should be lower than 65. PAST SURGICAL HISTORY: 1. Cataract surgeries. 2. Eyelid surgery. 3. Left foot surgery. 4. Panniculectomy. 5. Tonsillectomy. PAST MEDICAL HISTORY: 1. Obesity hypoventilation syndrome. 2. Sleep apnea. 3. Diabetes with neuropathy. 4. Anxiety. 5. Depression. 6. Diastolic CHF. 7. Hypertension. 8. Reflux. 9. Recurrent urinary tract infections. SOCIAL HISTORY: Tobacco none for 50 years. ETOH -- drank heavily in the past but also quit in his mid 20s, which is when he also quit smoking. FAMILY HISTORY: Positive for diabetes, coronary artery disease, CHF, and hypertension. MEDICATIONS: At home: 1. Vitamin C 500 mg daily. 2. Aspirin 81 mg daily. 3. Calcium D daily. 4. Finasteride 5 mg daily. 5. Folic acid 1 mg daily. 6. Furosemide 80 mg b.i.d. 7. Gabapentin 300 mg b.i.d. 8. NovoLog 10 units subcutaneous t.i.d. 9. Lantus 25 units in the evening. 10. Magnesium oxide 400 mg daily. 11. Metolazone 5 mg 2 times per week. 12. Metoprolol 25 mg one-half tab b.i.d. 13. Multivitamin daily. 14. Omeprazole 20 mg daily. 15. Potassium 20 mEq b.i.d. 16. Simvastatin 80 mg half-tab daily. 17. Tamsulosin 0.4 mg at bedtime. 18. Venlafaxine 75 mg b.i.d. REVIEW OF SYSTEMS: Unobtainable. PHYSICAL EXAMINATION: GENERAL: The patient is a 77-year-old male who was unresponsive. He had a BiPAP in place. There was an aide in the room with him who says he has been this way most of the morning. VITAL SIGNS: Temperature is 36.8. HEENT: Eye exam showed implants. The BiPAP mask was in place and thus I could not examine the nasal passages or oropharynx. He is having some leak out of the lower right portion of the mask. CHEST: The patient has respiratory rate increased at 28. He has abdominal breathing. Oxygen saturation was 92%. Breath sounds were decreased. No definite wheezes were heard. ABDOMEN: Obese. He has areas of ecchymosis on the anterior abdominal wall. Bowel sounds were present. There was no tenderness to palpation or masses. EXTREMITIES: Revealed good pulses peripherally. There was no cyanosis, clubbing or edema. The patient has had serial chest x-rays done. The most recent done 09/02/2017 shows cardiomegaly with a suggestion of interstitial edema. Trace effusions were suspected. A PICC line is in place on the right. Cannot exclude superimposed inflammatory process. Because it is portable and because the patient is obese, it is somewhat difficult to interpret this x-ray. He has had serial x-rays since admission. LABORATORY DATA: White count had been as high as 29.95 on August 28. White count yesterday was 6.08. Hemoglobin was 8.7. Platelets 152,000. Coags were normal. Urinalysis shows greater than 30 WBCs with 5-10 RBCs. Blood gas done this morning shows pH 7.41, pCO2 85, pO2 79 on BiPAP. Electrolytes show sodium 141, potassium 3.5, chloride 95, bicarbonate 49. Blood sugar today was 113. Calcium and magnesium were 8.5 and 1.9 respectively. IMPRESSION: 1. Acute on chronic respiratory failure with hypercarbia. 2. Chronic obstructive pulmonary disease. 3. Obstructive sleep apnea. 4. Obesity hypoventilation syndrome. 5. Cor pulmonale. 6. Pulmonary hypertension. COMMENTS AND RECOMMENDATIONS: The patient is doing abdominal breathing. This is on the BiPAP. I have suggested that we lower his oxygen saturations down to between 86 and 90%. This would help stimulate ventilation. He is on nebulizer treatments every 6 hours. He is on ceftriaxone. I would continue these. He needs close monitoring to make sure there is not a nonpulmonary reason for his altered mental status. I would check a TSH if it has not been done within the last month or so. We will decide later about whether we need to repeat the blood gas or not in the very near future. Unfortunately, the patient is typically noncompliant once he is feeling better. This would be with BiPAP but perhaps with other things as well. Thank you for asking me to assist in his care.
--- NOTE | 2017-09-03 16:29 | Infectious Disease Progress Nt ---
Progress Note Date of Service Sep 03, 2017. Subjective Pt evaluation today including: conversation w/ patient, physical exam, chart review, lab review, review of studies, conversation w/ dietitian consultant, review of inpatient medication list Patient remains confused. Hemodynamically stable, still having problems with oxygenation. Pulmonary consult noted. Follow-up blood cultures are negative to date. All Other Systems: Reviewed and Negative Medications Current Inpatient Medications Medications (Trade) Dose Ordered Sig/Bj Route Start Time Stop Time Status Last Admin Dose Admin Heparin Sodium (Porcine) (Heparin Sq 5000 Unit/0.5ml) 5,000 unit Q8 SQ 08/27/17 22:00 09/26/17 21:59 09/03/17 14:18 5,000 UNIT Acetaminophen (Tylenol Tab) 650 mg Q4H PRN PO 08/27/17 20:30 09/26/17 20:29 08/31/17 03:51 650 MG Al Hydrox/Mg Hydrox/Simethicone (Maalox Max Susp) 15 ml Q4H PRN PO 08/27/17 20:30 09/26/17 20:29 Ondansetron HCl (Zofran Inj) 4 mg Q6H PRN IV 08/27/17 20:30 09/26/17 20:29 Nitroglycerin (Nitrostat Tab) 0.4 mg UD PRN SL 08/27/17 20:30 09/26/17 20:29 Polyethylene (Miralax Powder Packet) 17 gm DAILY PRN PO 08/27/17 20:30 09/26/17 20:29 Ascorbic Acid (Vitamin C Tab) 500 mg DAILY PO 08/28/17 09:00 09/27/17 08:59 09/02/17 09:11 500 MG Aspirin (Ecotrin Tab) 81 mg DAILY PO 08/28/17 09:00 09/27/17 08:59 09/02/17 09:11 81 MG Finasteride (Proscar Tab) 5 mg QAM PO 08/28/17 09:00 09/27/17 08:59 09/02/17 09:11 5 MG Folic Acid (Folvite Tab) 1 mg DAILY PO 08/28/17 09:00 09/27/17 08:59 09/02/17 09:11 1 MG Gabapentin (Neurontin Cap) 300 mg BID PO 08/27/17 21:00 09/26/17 20:59 Future Hold 09/02/17 09:11 300 MG Magnesium Oxide (Mag-Ox Tab) 400 mg DAILY PO 08/28/17 09:00 09/27/17 08:59 09/02/17 09:11 400 MG Metoprolol Tartrate (Lopressor Tab) 12.5 mg BID PO 08/27/17 21:00 09/26/17 20:59 09/02/17 20:36 12.5 MG Multivitamins (Multivitamin Tab) 1 tab DAILY PO 08/28/17 09:00 09/27/17 08:59 09/02/17 09:12 1 TAB Nystatin/ Triamcinolone Acetonide (Mycogen II Crm) 1 appln BID EXT 08/27/17 21:00 09/26/17 20:59 09/03/17 09:42 1 APPLN Potassium Chloride (Klor-Con Tab) 20 meq BID PO 08/27/17 21:00 09/26/17 20:59 Future hold 09/02/17 20:35 20 MEQ Simvastatin (Zocor Tab) 40 mg QPM PO 08/27/17 21:00 09/26/17 20:59 09/02/17 20:36 40 MG Tamsulosin HCl (Flomax Cap) 0.4 mg HS PO 08/27/17 21:00 09/26/17 20:59 09/02/17 20:35 0.4 MG Venlafaxine HCl (effeXOR TAB) 75 mg BID PO 08/27/17 21:00 09/26/17 20:59 09/02/17 20:35 75 MG Calcium/Vitamin D (Caltrate Plus Tab) 1 tab DAILY PO 08/28/17 09:00 09/27/17 08:59 09/02/17 09:11 1 TAB Pantoprazole Sodium (Protonix Tab) 40 mg QAM PO 08/28/17 09:00 09/27/17 08:59 09/02/17 09:12 40 MG Insulin Aspart (novoLOG ASPART) SLIDING SCALE G... ACHS SC 08/27/17 21:00 09/26/17 20:59 09/02/17 20:38 2 UNITS Ipratropium Mereta (Atrovent 0.02% 0.5MG/2.5ML Neb) 0.5 mg Q4 PRN INH 08/28/17 08:30 09/27/17 08:29 Levalbuterol (Xopenex 1.25MG/ 0.5ML Neb) 1.25 mg Q4 PRN INH 08/28/17 08:30 09/27/17 08:29 Miscellaneous Information (Consult Glycemic Management Pharmacy) 1 ea UD PRN N/A 08/28/17 14:27 09/27/17 14:26 Miconazole Nitrate (Desenex Powder) 1 appln BID EXT 08/29/17 21:00 09/28/17 20:59 09/03/17 09:42 1 APPLN Miconazole Nitrate (Desenex Powder) 1 appln PRN PRN EXT 08/29/17 15:30 09/28/17 15:29 Insulin Glargine (Lantus Solostar Pen) See Protocol Text HS SQ 08/30/17 21:00 09/29/17 20:59 09/02/17 20:39 22 UNITS Ceftriaxone Sodium 2000 mg/ Dextrose 70 ml @ 100 mls/hr Q24H IV 08/31/17 20:00 09/14/17 19:59 09/02/17 20:35 100 MLS/HR Albuterol/ Ipratropium (Duoneb) 3 ml Q2H PRN INH 09/02/17 00:15 10/02/17 00:14 Heparin Sodium (Porcine) (Heparin 10 Unit/ ml 5 ml Flush) 5 ml PRN PRN FLUSH 09/02/17 17:45 10/02/17 17:44 Haloperidol Lactate (Haldol Inj) 5 mg Q6H PRN IM 09/02/17 21:15 10/02/17 21:14 09/03/17 00:26 5 MG Ipratropium Mereta (Atrovent 0.02% 0.5MG/2.5ML Neb) 0.5 mg Q6R INH 09/03/17 03:00 10/03/17 02:59 09/03/17 14:12 0.5 MG Levalbuterol (Xopenex 1.25MG/ 0.5ML Neb) 1.25 mg Q6R INH 09/03/17 03:00 10/03/17 02:59 09/03/17 14:12 1.25 MG Furosemide 60 mg/ Syringe 6 ml @ 4 mls/min BID17 IV 09/03/17 21:00 10/03/17 20:59 Objective Vital Signs Date Time Temp Pulse Resp B/P (MAP) Pulse Ox O2 Delivery O2 Flow Rate FiO2 09/03/17 15:02 36.9 85 24 138/65 (89) 99 BiPAP 09/03/17 14:16 91 31 90 BiPAP/CPAP 30 09/03/17 14:15 91 97 30 09/03/17 12:00 BiPAP 30 09/03/17 11:30 36.8 84 24 135/62 (86) 92 BiPAP 09/03/17 08:00 BiPAP 40 09/03/17 07:23 79 97 40 09/03/17 07:10 83 24 124/65 (84) 98 4.0 09/03/17 07:08 84 18 94 Nasal Cannula 4.0 09/03/17 04:00 Nasal Cannula 3.0 09/03/17 03:46 37.0 89 20 102/51 (68) 90 Nasal Cannula 4.0 09/03/17 01:19 85 18 93 Nasal Cannula 4.0 09/03/17 00:00 Nasal Cannula 3.0 09/02/17 22:52 37.1 78 19 118/92 (101) 91 Nasal Cannula 4.0 09/02/17 20:00 Nasal Cannula 3.0 09/02/17 18:59 37.1 77 20 146/72 (96) 96 Nasal Cannula 4.0 09/02/17 18:55 79 22 97 Nasal Cannula 4.0 Physical Exam General Appearance: WD/WN, no apparent distress Eyes: normal inspection, EOMI, sclerae normal ENT: normal ENT inspection, pharynx normal Neck: supple, no adenopathy, thyroid normal, trachea midline Respiratory/Chest: chest non-tender, no respiratory distress, no accessory muscle use, + rales Cardiovascular: regular rate, rhythm, no gallop, no murmur Abdomen: normal bowel sounds, non tender, soft, no organomegaly Extremities: non-tender, no calf tenderness Neurologic/Psychiatric: alert, + disoriented Skin: normal color, warm/dry, no rash Lymphatic: no adenopathy Laboratory Results RUN DATE: 09/02/17 [facility] PAGE 1 RUN TIME: 707 Specimen Inquiry PATIENT: JAKE LEWIS LOC: [facility] U # : [id number] AGE/SX: 77/M ROOM: 10 REG : 08/27/[address]: Radha Youssef M.D. : 1940 BED: 1 DIS : STATUS: ADM IN TLOC: SPEC #: [id number] JENNIFER: 08/31/17 STATUS: RES REQ #: [id number] RECD: 08/31/[address]: Radha Youssef M.D. SOURCE: BLOOD ENTR: 08/31/[address]: Derek Martinez MD [facility]: Minh Nair, Syed Schuler , D.OMichael Ortez , Minh Sethi M.D. ORDERED: BLOOD CULTURE Procedure Result Verified Site BLD CULT Preliminary 09/02/17-07 NO GROWTH TO DATE. Last 24 Hours Test 09/02/17 16:46 09/02/17 20:16 09/03/17 04:00 09/03/17 06:56 Bedside Glucose 98 mg/dl 190 mg/dl 138 mg/dl Sodium Level 141 mmol/L Potassium Level 3.5 mmol/L Chloride Level 95 mmol/L Carbon Dioxide Level 49 mmol/L Anion Gap -3.0 mmol/L Blood Urea Nitrogen 16 mg/dl Creatinine 0.85 mg/dl Est Creatinine Clear Calc Drug Dose 97.8 ml/min Estimated GFR () 98.1 Estimated GFR (Non- 84.6 BUN/Creatinine Ratio 19.2 Random Glucose 120 mg/dl Calcium Level 8.5 mg/dl Magnesium Level 1.9 mg/dl Test 09/03/17 07:43 09/03/17 08:14 09/03/17 11:41 Blood Gas Sample Site L Radial Bedside Blood Gas pH (LAB) 7.41 Bedside Blood Gas pCO2 (LAB) 85 mmHg Bedside Blood Gas pO2 (LAB) 79 mmHg Bedside Blood Gas HCO3 (LAB) 54 meq/L Bedside Blood Gas Total CO2 < 5 mEq/l Bedside Blood Gas Base Excess (LAB) 29.0 meq/L Bedside Blood Gas O2 Saturation 94.0 % Khoa Test Pass Oxygen Delivery Device BIPAP Bedside Oxygen Rate (breaths/min) 14 Bedside FiO2 40 % Blood Gas IPAP 15 Bedside Glucose 130 mg/dl 113 mg/dl Patient Name: JAKE LEWIS Unit Number: [id number] Dictated: 09/03/171033 Transcribed: 09/03/171033 EV Printed Date/Time: [~ rep prt dt]/[~ rep prt tm] [~ rep ct labl] - [~ rep ct ivnm] [facility] [place] [address] Dictated: 09/03/171033 Transcribed: 09/03/171033 EV Printed Date/Time: [~ rep prt dt]/[~ rep prt tm] [~ rep ct labl] - [~ rep ct ivnm] [~ rep ct add3]] SINGLE VIEW CHEST CLINICAL HISTORY: Worsening dyspnea. FINDINGS: An AP, portable, upright chest radiograph is compared to study dated 09/02/2017. The examination is degraded by portable technique, large body habitus, and patient rotation. A right PICC line as been placed. The tip of the catheter projects over the right atrium. The heart is enlarged and there is atherosclerotic calcification of the thoracic ureter. There is pulmonary vascular congestion. Bilateral airspace opacities likely represent interstitial edema. Trace pleural effusions are suspected. There is bibasilar atelectasis. No pneumothorax is seen. The skeletal structures are osteopenic. The bony thorax is grossly intact. Advanced arthritic change is seen in the shoulders. IMPRESSION: 1. Cardiomegaly with evidence of congestive failure. This has worsened from yesterday. 2. Bilateral airspace opacities likely represent interstitial edema. Correlate clinically for evidence of a superimposed infectious/inflammatory pneumonitis. 3. Suspect small pleural effusions. 4. A right PICC line has been placed. The tip of the catheter projects over the right atrium. Electronically signed by: Porfirio Santillan M.D. 09/03/2017 10:36 AM Dictated Date/Time: 09/03/2017 10:34 AM The status of this report is Signed. Draft = Not yet reviewed or approved by Radiologist. Signed = Reviewed and approved by Radiologist. <AttendingPhy>Naila Frances D.O.</AttendingPhy> <FamilyPhy>Syed Valdivia D.O.</FamilyPhy> <PrimaryPhy>Syed Valdivia D.O.</PrimaryPhy> < UnitNumber>[id number]</UnitNumber> <VisitNumber>[id number]</VisitNumber> < PatientName>JAKE LEWIS</PatientName> <DateOfBirth>1940</DateOfBirth> < Location>[facility]</Location> <ServiceDate>08/27/17</ServiceDate> <MNE>ESINDI</MNE> < OrderingPhy>Naila Frances D.O.</OrderingPhy> <OrderingPhyMNE>f rep ord dr bustos</ OrderingPhyMNE> <DictatingPhyMNE>f rep dict dr bustos</DictatingPhyMNE> <CCListMNE> f rep ct mne</CCListMNE> <AdmittingPhyMNE>f pt admit dr bustos</AdmittingPhyMNE> < AttendingPhyMNE>f pt attend dr bustos</AttendingPhyMNE> <ConsultingPhyMNE>f pt consult dr bustos</ConsultingPhyMNE> <FamilyPhyMNE>f pt fam dr bustos</FamilyPhyMNE> <OtherPhyMNE>f pt other dr bustos</OtherPhyMNE> < PrimaryPhyMNE>f pt prim care dr bustos</PrimaryPhyMNE> <ReferringPhyMNE>f pt referring dr bustos</ReferringPhyMNE> Assessment and Plan E. coli bacteremia with encephalopathy, likely from urinary tract source. Patient should be able to be treated with ceftriaxone 2 gm daily. Recommend 7 days of IV antibiotics with transition to oral if remains afebrile.
--- NOTE | 2017-09-03 17:26 | Progress Note ---
Medicine Progress Note Date & Time of Visit: Sep 03, 2017 at 16:54. Subjective Patient was reportedly more confused overnight, was not keeping the Bipap on; this morning had been sleeping and has occasionally tried to remove the bipap when he wakes up. No complaints of SOB however patient is confused and not a good historian at this time. No other events noted. Objective Last 8 Hrs Date Time Temp Pulse Resp B/P (MAP) Pulse Ox O2 Delivery O2 Flow Rate FiO2 09/03/17 15:02 36.9 85 24 138/65 (89) 99 BiPAP 09/03/17 14:16 91 31 90 BiPAP/CPAP 30 09/03/17 14:15 91 97 30 09/03/17 12:00 BiPAP 30 09/03/17 11:30 36.8 84 24 135/62 (86) 92 BiPAP Physical Exam: GENERAL: Patient is in no acute distress. HEENT: No acute trauma, normocephalic, mucous membranes moist, no nasal congestion, no scleral icterus. NECK: No stridor, trachea is midline. LUNGS: Bilateral expiratory wheezes, no rhonchi, breath sounds equal. Diminished bases HEART: Without murmurs gallops or rubs, regular rate and rhythm. ABDOMEN: Soft, nontender, bowel sounds positive EXTREMITIES: No cyanosis or edema, full range of motion of all the joints without pain or difficulty, no signs for acute trauma. NEUROLOGIC: Confused, no apparent acute motor or sensory deficits, no focal weakness. Awakens to verbal but is confused and tries to remove bipap mask SKIN: No rash, no jaundice, no diaphoresis. Laboratory Results: Last 24 Hours Test 09/02/17 20:16 09/03/17 04:00 09/03/17 06:56 09/03/17 07:43 Bedside Glucose 190 mg/dl 138 mg/dl Sodium Level 141 mmol/L Potassium Level 3.5 mmol/L Chloride Level 95 mmol/L Carbon Dioxide Level 49 mmol/L Anion Gap -3.0 mmol/L Blood Urea Nitrogen 16 mg/dl Creatinine 0.85 mg/dl Est Creatinine Clear Calc Drug Dose 97.8 ml/min Estimated GFR () 98.1 Estimated GFR (Non- 84.6 BUN/Creatinine Ratio 19.2 Random Glucose 120 mg/dl Calcium Level 8.5 mg/dl Magnesium Level 1.9 mg/dl Blood Gas Sample Site L Radial Bedside Blood Gas pH (LAB) 7.41 Bedside Blood Gas pCO2 (LAB) 85 mmHg Bedside Blood Gas pO2 (LAB) 79 mmHg Bedside Blood Gas HCO3 (LAB) 54 meq/L Bedside Blood Gas Total CO2 < 5 mEq/l Bedside Blood Gas Base Excess (LAB) 29.0 meq/L Bedside Blood Gas O2 Saturation 94.0 % Khoa Test Pass Oxygen Delivery Device BIPAP Bedside Oxygen Rate (breaths/min) 14 Bedside FiO2 40 % Blood Gas IPAP 15 Test 09/03/17 08:14 09/03/17 11:41 Bedside Glucose 130 mg/dl 113 mg/dl Assessment & Plan SEVERE SEPSIS: from BACTEREMIA -cultures grew MDR E.COLI from blood cultures X 2 sets -met criteria for severe sepsis on admission with fever/ leukocytosis/ tachycardia/tachypnea/hypotension/acute renal failure/confusion -initially treated with empiric broad-spectrum antibiotic with IV vancomycin/ Zosyn -recent history of Pseudomonas and enterococcus urinary tract infection -was unable to provide a clean catch urine on admission, and nursing unable to to put a Rodriguez catheter or straight cath by nursing due to history of BPH -Urology consulted and rodriguez placed by attending -Urine culture catheterized sample no growth/patient was already been on IV antibiotic treatment -remains afebrile, BP improved, no leukocytosis -08/27/17; 2 sets blood culture; gram-negative bacilli-->E. coli: Multidrug- resistant: Resistant to quinolone/ampicillin; Sensitive to Rocephin/Invanz/ imipenem -ID consulted, IV vancomycin/IV Zosyn discontinued; started on IV Rocephin 2 g daily -Repeat blood culture on 08-29-17: Grew E coli with same sensitivities -3rd set Blood cultures: no growth -PICC Line placed; -per ID: patient should be treated with ceftriaxone 2 gm daily. Recommend 7 days of IV antibiotics with transition to oral if remains afebrile following that HYPOXEMIA/ACUTE ON CHRONIC RESPIRATORY FAILURE: -likely multifactorial from decompensated CHF with diastolic dysfunction/CO2 retention from OHS and GILLES with poor outpatient compliance -has been on Bipap since early this AM, ABG POC showed: -continue on Neb tx -Pulmonary consulted, appreciate recs -No role for steroids at this time -diuresis as tolerated CONFUSION/METABOLIC ENCEPHALOPATHY: -possibly due to severe sepsis/acute renal failure, but also noted to have CO2 trending upward which could be contributing -patient worse today per staff -on treatment of infection/correction of hypoxemia/resolution of renal, Bipap as tolerated and qHS -remains high fall risk, ordered bed alarm, low boy bed -on 1:1 observation due to increased agitation/worsening of confusion/sundowning ACUTE ON CHRONIC DIASTOLIC CONGESTIVE HEART FAILURE EXACERBATION: -Lasix and Zaroxolyn were on hold initially in setting of severe sepsis/risk of intravascular volume depletion -TTE from July 2017, normal EF and valvular function. -Cardiology eval appreciated -was subsequently given Lasix 40 mg IV BID for evidence of vol over load ( CXR showed pulm congestion /elevated Pro BNP ) and pt diuresed > 2.5 L -CXR today demonstrated b/l pleural effusions and worsening congestive changes, will thus increase lasix from PO to IV at 60mg BID -monitor daily weights and I's and O's closely ARRHYTHMIA: PAC/PVC -Cardiology was consulted, appreciate input -No evidence of A. fib noted -noted to have frequent PAC/PVC possible secondary to sepsis/acute renal failure -No cardiac intervention indicated -Cardiology recommended correction of the underlying cause DM TYPE II: -continue Lantus + correction scale insulin -Pharmacy consulted for glycemic management, appreciate assistance OBSTRUCTIVE SLEEP APNEA: -continue BiPAP at night -known non-compliance at home HTN: -stable, occasionally on lower side of normal -Lasix resumed; changed back to IV -continued on Lopressor with holding parameters RENEA ON CKD STAGE III: resolved -had RENEA due to severe sepsis/infection-intravascular volume depletion -renal function at approximate baseline -resumed Lasix 40 mg PO twice daily: this was changed today to IV lasix 60mg BID due to worsening CXR/CHF BPH: -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 Qureshi, and recommended patient to continue to keep Rodriguez catheter upon discharge -also has outpatient follow-up with Dr. Hameed and will need outpatient cystoscopy to evaluate for urethral stricture SACRAL DECUBITUS ULCER: STAGE I/II -was present on admission -Wound care consulted, appreciate recs Current Inpatient Medications: Current Inpatient Medications Medications (Trade) Dose Ordered Sig/Bj Route Start Time Stop Time Status Last Admin Dose Admin Heparin Sodium (Porcine) (Heparin Sq 5000 Unit/0.5ml) 5,000 unit Q8 SQ 08/27/17 22:00 09/26/17 21:59 09/03/17 14:18 5,000 UNIT Acetaminophen (Tylenol Tab) 650 mg Q4H PRN PO 08/27/17 20:30 09/26/17 20:29 08/31/17 03:51 650 MG Al Hydrox/Mg Hydrox/Simethicone (Maalox Max Susp) 15 ml Q4H PRN PO 08/27/17 20:30 09/26/17 20:29 Ondansetron HCl (Zofran Inj) 4 mg Q6H PRN IV 08/27/17 20:30 09/26/17 20:29 Nitroglycerin (Nitrostat Tab) 0.4 mg UD PRN SL 08/27/17 20:30 09/26/17 20:29 Polyethylene (Miralax Powder Packet) 17 gm DAILY PRN PO 08/27/17 20:30 09/26/17 20:29 Ascorbic Acid (Vitamin C Tab) 500 mg DAILY PO 08/28/17 09:00 09/27/17 08:59 09/02/17 09:11 500 MG Aspirin (Ecotrin Tab) 81 mg DAILY PO 08/28/17 09:00 09/27/17 08:59 09/02/17 09:11 81 MG Finasteride (Proscar Tab) 5 mg QAM PO 08/28/17 09:00 09/27/17 08:59 09/02/17 09:11 5 MG Folic Acid (Folvite Tab) 1 mg DAILY PO 08/28/17 09:00 09/27/17 08:59 09/02/17 09:11 1 MG Gabapentin (Neurontin Cap) 300 mg BID PO 08/27/17 21:00 09/26/17 20:59 Future Hold 09/02/17 09:11 300 MG Magnesium Oxide (Mag-Ox Tab) 400 mg DAILY PO 08/28/17 09:00 09/27/17 08:59 09/02/17 09:11 400 MG Metoprolol Tartrate (Lopressor Tab) 12.5 mg BID PO 08/27/17 21:00 09/26/17 20:59 09/02/17 20:36 12.5 MG Multivitamins (Multivitamin Tab) 1 tab DAILY PO 08/28/17 09:00 09/27/17 08:59 09/02/17 09:12 1 TAB Nystatin/ Triamcinolone Acetonide (Mycogen II Crm) 1 appln BID EXT 08/27/17 21:00 09/26/17 20:59 09/03/17 09:42 1 APPLN Potassium Chloride (Klor-Con Tab) 20 meq BID PO 08/27/17 21:00 09/26/17 20:59 Future hold 09/02/17 20:35 20 MEQ Simvastatin (Zocor Tab) 40 mg QPM PO 08/27/17 21:00 09/26/17 20:59 09/02/17 20:36 40 MG Tamsulosin HCl (Flomax Cap) 0.4 mg HS PO 08/27/17 21:00 09/26/17 20:59 09/02/17 20:35 0.4 MG Venlafaxine HCl (effeXOR TAB) 75 mg BID PO 08/27/17 21:00 09/26/17 20:59 09/02/17 20:35 75 MG Calcium/Vitamin D (Caltrate Plus Tab) 1 tab DAILY PO 08/28/17 09:00 09/27/17 08:59 09/02/17 09:11 1 TAB Pantoprazole Sodium (Protonix Tab) 40 mg QAM PO 08/28/17 09:00 09/27/17 08:59 09/02/17 09:12 40 MG Insulin Aspart (novoLOG ASPART) SLIDING SCALE G... ACHS SC 08/27/17 21:00 09/26/17 20:59 09/02/17 20:38 2 UNITS Ipratropium [place] (Atrovent 0.02% 0.5MG/2.5ML Neb) 0.5 mg Q4 PRN INH 08/28/17 08:30 09/27/17 08:29 Levalbuterol (Xopenex 1.25MG/ 0.5ML Neb) 1.25 mg Q4 PRN INH 08/28/17 08:30 09/27/17 08:29 Miscellaneous Information (Consult Glycemic Management Pharmacy) 1 ea UD PRN N/A 08/28/17 14:27 09/27/17 14:26 Miconazole Nitrate (Desenex Powder) 1 appln BID EXT 08/29/17 21:00 09/28/17 20:59 09/03/17 09:42 1 APPLN Miconazole Nitrate (Desenex Powder) 1 appln PRN PRN EXT 08/29/17 15:30 09/28/17 15:29 Insulin Glargine (Lantus Solostar Pen) See Protocol Text HS SQ 08/30/17 21:00 09/29/17 20:59 09/02/17 20:39 22 UNITS Ceftriaxone Sodium 2000 mg/ Dextrose 70 ml @ 100 mls/hr Q24H IV 08/31/17 20:00 09/14/17 19:59 09/02/17 20:35 100 MLS/HR Albuterol/ Ipratropium (Duoneb) 3 ml Q2H PRN INH 09/02/17 00:15 10/02/17 00:14 Heparin Sodium (Porcine) (Heparin 10 Unit/ ml 5 ml Flush) 5 ml PRN PRN FLUSH 09/02/17 17:45 10/02/17 17:44 Haloperidol Lactate (Haldol Inj) 5 mg Q6H PRN IM 09/02/17 21:15 10/02/17 21:14 09/03/17 00:26 5 MG Ipratropium [place] (Atrovent 0.02% 0.5MG/2.5ML Neb) 0.5 mg Q6R INH 09/03/17 03:00 10/03/17 02:59 09/03/17 14:12 0.5 MG Levalbuterol (Xopenex 1.25MG/ 0.5ML Neb) 1.25 mg Q6R INH 09/03/17 03:00 10/03/17 02:59 09/03/17 14:12 1.25 MG Furosemide 60 mg/ Syringe 6 ml @ 4 mls/min BID17 IV 09/03/17 21:00 10/03/17 20:59
[2017-09-03] MEDS: MAGNESIUM OXIDE 400 MG TAB PO SCH (18:19)
[2017-09-03] MEDS: MULTIVITAMIN TAB PO SCH (18:20)
[2017-09-03] MEDS: ASPIRIN 81 MG ECTAB PO SCH (18:20)
[2017-09-03] MEDS: METOPROLOL TARTRATE 25 MG TAB PO SCH ×2 (18:20→20:06)
[2017-09-03] MEDS: CALCIUM 600MG + VIT D 400 IU TAB PO SCH (18:21)
[2017-09-03] MEDS: FINASTERIDE 5 MG TAB PO SCH (18:21)
[2017-09-03] MEDS: PANTOprazole SOD 40 MG TAB PO SCH (18:21)
[2017-09-03] MEDS: VENLAFAXINE HCL 37.5 MG TAB PO SCH ×2 (18:22→20:06)
[2017-09-03] MEDS: ASCORBIC ACID 500 MG TAB PO SCH (18:23)
[2017-09-03] MEDS: POTASSIUM CHLORIDE 20 MEQ TABCR PO SCH ×2 (18:23→20:06)
[2017-09-03] MEDS: QUETIAPINE FUMARATE 25 MG TAB PO SCH ×2 (20:00→20:28)
[2017-09-03] MEDS: TAMSULOSIN HCL 0.4 MG CAP PO SCH (20:06)
[2017-09-03] MEDS: SIMVASTATIN 40 MG TAB PO SCH (20:06)
[2017-09-03] MEDS: CEFTRIAXONE SOD INJ 2,000 MG in DEXTROSE 5% 50ML 50 ML IV SCH (20:24)
[2017-09-03] MEDS: INSULIN GLARGINE SOLOSTAR 100 UNITS/ML 3 ML PEN SQ SCH (20:28)
[2017-09-03] MEDS ORDERED: FUROSEMIDE INJ 60 MG in SYRINGE 0 ML IV SCH (21:00)
[2017-09-04] VITALS (15 sets, daily range): BP systolic 136–194; BP diastolic 76–101; PULSE 79–102; TEMP 36.7–37.7; O2SAT 65–94
[2017-09-04] MEDS: IPRATROPIUM BROMIDE NEB SOLN 0.02% 2.5 ML VIAL INH SCH ×4 (02:02→19:04)
[2017-09-04] MEDS: LEVALBUTEROL 1.25MG/0.5ML NEB INH SCH ×4 (02:02→19:04)
[2017-09-04 04:52] LABS: HEMATOCRIT 34.2 % (42-52); HEMOGLOBIN 9.1 g/dL (14.0-18.0); MEAN CELL VOLUME 74.5 fL (80-100); MEAN CORPUSCULAR HEMOGLOBIN 19.8 pg (25-34); MEAN CORPUSCULAR HGB CONC 26.6 g/dl (32-36); MEAN PLATELET VOLUME 8.9 fL (7.4-10.4); PLATELET COUNT 177 K/uL (130-400); RED CELL DISTRIBUTION WIDTH CV 18.8 % (11.5-14.5); RED CELL DISTRIBUTION WIDTH SD 51.4 fL (36.4-46.3); WHITE BLOOD COUNT 5.73 K/uL (4.8-10.8)
[2017-09-04 05:06] LABS: CALCIUM 8.7 mg/dl (8.5-10.1); CREATININE 0.95 mg/dl (0.60-1.40); PHOSPHORUS 1.7 mg/dl (2.5-4.9); POTASSIUM 3.7 mmol/L (3.5-5.1)
[2017-09-04] MEDS ORDERED: MAGNESIUM SULFATE 1GM / D5W 100 ML IV STA (05:31)
[2017-09-04] MEDS: HEPARIN SOD 5000 UNIT/0.5 ML CARP SQ SCH ×3 (05:31→21:21)
[2017-09-04] MEDS ORDERED: METHYLPREDNISOLONE IV 20 MG in SYRINGE 0 ML IV ONE (05:50)
[2017-09-04] MEDS ORDERED: FUROSEMIDE INJ 60 MG in SYRINGE 0 ML IV STA (05:51)
[2017-09-04] MEDS ORDERED: LEVALBUTEROL/IPRATROPIUM NEB INH STA (05:52)
--- NOTE | 2017-09-04 06:25 | Progress Note ---
Internal Med Progress Note Date of Service: Sep 04, 2017. Provider Documentation: Made aware by RN of respiratory distress, increasing disorientation/agitation this a.m. Patient refuses to wear BiPAP. Patient's updated of developments over the phone and possibility of patient decompensation with worsening respiratory failure with patient's refusal to comply with BiPAP. CODE STATUS de-escalated to DNR as per ' s request. Continue medical management however. Will relay developments to AM provider. Vital Signs: Date Time Temp Pulse Resp B/P (MAP) Pulse Ox O2 Delivery O2 Flow Rate FiO2 09/04/17 08:00 BiPAP 30 09/04/17 07:34 100 91 30 09/04/17 07:10 97 40 86 Nasal Cannula 3.0 09/04/17 07:06 37.7 102 28 169/95 (119) 85 09/04/17 06:12 96 32 93 Nasal Cannula 5.0 09/04/17 04:01 36.8 86 32 167/78 (107) 87 BiPAP 30 09/04/17 04:00 BiPAP 30 09/04/17 02:03 79 88 30 09/04/17 02:02 89 28 88 BiPAP/CPAP 30 09/04/17 00:00 BiPAP 30 09/03/17 23:19 36.6 88 23 176/87 (116) 90 BiPAP 30 09/03/17 20:00 BiPAP 30 09/03/17 19:17 36.8 90 22 138/65 (89) 92 09/03/17 19:17 90 92 30 09/03/17 19:16 90 37 92 BiPAP/CPAP 30 09/03/17 16:00 BiPAP 30 09/03/17 15:02 36.9 85 24 138/65 (89) 99 BiPAP 09/03/17 14:16 91 31 90 BiPAP/CPAP 30 09/03/17 14:15 91 97 30 09/03/17 12:00 BiPAP 30 09/03/17 11:30 36.8 84 24 135/62 (86) 92 BiPAP Lab Results: Results Past 24 Hours Test 09/03/17 11:41 09/03/17 15:53 09/03/17 19:55 09/04/17 04:31 Range/Units Bedside Glucose 113 97 213 70-99 mg/dl White Blood Count 5.73 4.8-10.8 K/uL Red Blood Count 4.59 4.7-6.1 M/uL Hemoglobin 9.1 14.0-18.0 g/dL Hematocrit 34.2 42-52 % Mean Corpuscular Volume 74.5 80-100 fL Mean Corpuscular Hemoglobin 19.8 25-34 pg Mean Corpuscular Hemoglobin Concent 26.6 32-36 g/dl RDW Standard Deviation 51.4 36.4-46.3 fL RDW Coefficient of Variation 18.8 11.5-14.5 % Platelet Count 177 130-400 K/uL Mean Platelet Volume 8.9 7.4-10.4 fL Sodium Level 144 136-145 mmol/L Potassium Level 3.7 3.5-5.1 mmol/L Chloride Level 96 98-107 mmol/L Carbon Dioxide Level 52 21-32 mmol/L Anion Gap -4.0 3-11 mmol/L Blood Urea Nitrogen 13 7-18 mg/dl Creatinine 0.95 0.60-1.40 mg/dl Est Creatinine Clear Calc Drug Dose 84.8 ml/min Estimated GFR () 89.8 Estimated GFR (Non- 77.4 BUN/Creatinine Ratio 13.8 10-20 Random Glucose 102 70-99 mg/dl Calcium Level 8.7 8.5-10.1 mg/dl Phosphorus Level 1.7 2.5-4.9 mg/dl Magnesium Level 2.1 1.8-2.4 mg/dl Test 09/04/17 06:15 09/04/17 06:41 Range/Units Arterial Blood pH 7.38 7.35-7.45 Arterial Blood Partial Pressure CO2 82 35-46 mmHg Arterial Blood Partial Pressure O2 188 80-95 mm/Hg Arterial Blood HCO3 47 19-24 mmol/L Arterial Blood Oxygen Saturation 98.2 90-95 % Arterial Blood Base Excess 18.6 -9-1.8 mEq/L Arterial Blood Gas Delivery 5L Khoa Test POS POS Bedside Glucose 129 70-99 mg/dl
[2017-09-04] MEDS ORDERED: HALOPERIDOL LACTATE 5 MG/ML 1 ML VIAL IM PRN (06:30)
[2017-09-04] MEDS ORDERED: HALOPERIDOL 1 MG TAB PO PRN ×2 (06:30→06:45)
[2017-09-04] MEDS: INSULIN ASPART 100 UNITS/ML 3 ML PEN SC SCH ×4 (07:00→21:21)
--- NOTE | 2017-09-04 07:18 | DIAGNOSTIC IMAGING REPORT ---
SINGLE VIEW CHEST CLINICAL HISTORY: Hypoxia. FINDINGS: An AP, portable, upright chest radiograph is compared to study dated 09/03/2017. The examination is degraded by portable technique, large body habitus, and patient rotation. A right PICC line is unchanged in position. The tip of the catheter projects over the right atrium. The heart is enlarged and there is atherosclerotic calcification of the thoracic aorta. There is pulmonary vascular congestion. Bilateral airspace opacities likely represent interstitial edema, and are most confluent in the right midlung. Trace pleural effusions are suspected. There is bibasilar atelectasis. No pneumothorax is seen. The skeletal structures are osteopenic. The bony thorax is grossly intact. Advanced arthritic change is seen in the shoulders. IMPRESSION: 1. Cardiomegaly with evidence of congestive failure. This has modestly improved from yesterday. 2. Bilateral airspace opacities likely represent interstitial edema. Correlate clinically for evidence of superimposed pneumonia. 3. Suspect small pleural effusions. Electronically signed by: Porfirio Santillan M.D. 09/04/2017 7:16 AM Dictated Date/Time: 09/04/2017 7:15 AM
[2017-09-04] MEDS: VENLAFAXINE HCL 37.5 MG TAB PO SCH ×2 (09:00→20:55)
[2017-09-04] MEDS: MAGNESIUM OXIDE 400 MG TAB PO SCH (09:00)
[2017-09-04] MEDS: MULTIVITAMIN TAB PO SCH (09:00)
[2017-09-04] MEDS: ASPIRIN 81 MG ECTAB PO SCH (09:00)
[2017-09-04] MEDS: METOPROLOL TARTRATE 25 MG TAB PO SCH ×2 (09:00→20:56)
[2017-09-04] MEDS: CALCIUM 600MG + VIT D 400 IU TAB PO SCH (09:00)
[2017-09-04] MEDS: POTASSIUM CHLORIDE 20 MEQ TABCR PO SCH ×2 (09:00→20:56)
[2017-09-04] MEDS: FINASTERIDE 5 MG TAB PO SCH (09:00)
[2017-09-04] MEDS: PANTOprazole SOD 40 MG TAB PO SCH (09:00)
[2017-09-04] MEDS: ASCORBIC ACID 500 MG TAB PO SCH (09:00)
--- NOTE | 2017-09-04 11:10 | Pharmacy Progress Note ---
Pharmacy Glycemic Short Note 2 Date of Service Sep 04, 2017. OUTPATIENT ANTIDIABETIC REGIMEN: * Lantus 25 units SQ qPM * Novolog 10 units SQ TID with meals * HbA1c: pending w/ am labs (04/29/17: 7.9%) Item Value Date Time Bedside Glucose 129 mg/dl H 09/04/17 0641 Bedside Glucose 213 mg/dl H 09/03/17 1955 Bedside Glucose 97 mg/dl 09/03/17 1553 Bedside Glucose 113 mg/dl H 09/03/17 1141 Bedside Glucose 130 mg/dl H 09/03/17 0814 Bedside Glucose 138 mg/dl H 09/03/17 0656 ASSESSMENT: 09/02/17 * BSGs have ranged 102-144 over the last 24 hours * Fasting BSG 136 with 17 units Lantus on board. Fasting BSGs have been at goal with 17 units Lantus on board last 3 days. As mental status and diet continue to improve he may ultimately require a slightly higher dose of basal insulin. Continuing the current HS Lantus scale is reasonable. * Post-prandial BSGs controlled well with current CF and CR * Requiring ~33-39units/day while consuming 3 meals 09/03/17 * Patient again disoriented with hypercarbic resp failure * PO intake has been poor for several days, however BSGs have been well controlled for the most-part * BSGs are more reflective of fasting results and have ranged 97-129 with 22 units of Lantus on board. * Will give a set dose of Lantus at bedtime, slightly lower as patient more obtunded today than prior days in which he did have a little PO intake * CF has performed well. CR not being used due to patient's dietary habits and lack of PO intake. PLAN FOR INPATIENT GLYCEMIC CONTROL: * Basal insulin * Lantus 18 units SQ HS * Bolus insulin (no changes) * NovoLog per scale ACHS or Q6hrs while NPO * Goal Range: Low 110 mg/dL - High 140 mg/dL * Correction Factor: 25 mg/dL/unit * Nutritional / Prandial insulin per carb ratio of 1 unit per 8 grams CHO consumed PLAN FOR DISCHARGE: * A1c 9.1%, would recommend prompt f/u with PCP or machine stapler on discharge to adjust outpt medication regimen. His A1c has increased over the last 4 months. His inpatient insulin requirements are much lower vs outpt requirements , perhaps compliance with diet and medications are partially to blame?
[2017-09-04] MEDS: MICONAZOLE NITRATE POWDER 43 GM EXT SCH ×2 (11:53→21:15)
[2017-09-04] MEDS: PANTOprazole INJ 40 MG in SYRINGE 0 ML IV SCH (11:53)
[2017-09-04] MEDS: NYSTATIN/TRIAMCINOLONE CR 15 GM TUBE EXT SCH ×2 (11:54→21:16)
--- NOTE | 2017-09-04 13:40 | PULMONARY PROGRESS NOTE ---
DATE: 09/04/2017 PULMONARY PROGRESS NOTE. PROBLEM LIST: Includes: 1. [id number] respiratory failure with hypercarbia: 2. COPD. 3. Sleep apnea. 4. Obesity hypoventilation syndrome. 5. COR pulmonale. SUBJECTIVE: The patient is sleeping this morning. He will arouse slightly but does not really provide any conversation or history. From what I can tell; from Dr. Cox's note yesterday, he is about the same as he was yesterday. In reviewing the notes and discussed with the staff, apparently early this morning, he became very violent and combative, pulled the BiPAP off, when staff found him, his oxygen saturations dipped down to the 68 to 72%. They did remove the BiPAP and put him on nasal cannula 5 liters. His oxygen did come back up to 95%. He was given Haldol and Seroquel overnight. According to nursing staff, he has been sleeping for the past couple of hours with the BiPAP mode. In discussing with nursing staff, the patient's is not present currently, but apparently discussion was undertaken that they are looking at making the patient comfort measures later this afternoon. The was going to discuss this with the family. OBJECTIVE: GENERAL: Patient is a 77-year-old male, lying in bed, not really responding, does arouse slightly with verbal stimuli. VITAL SIGNS: Temperature was slightly elevated at 37.7, pulse 97, respirations 40, blood pressure 169/95, pulse ox is fluctuating from 88 to 94% while I was in there with patient on BiPAP and oxygen. NECK: Short, thick. No mass. No adenopathy. No bruits. CHEST: Coarse breath sounds throughout. He does have some abdominal breathing. CARDIOVASCULAR: At this time, regular rate and rhythm. He does have a few runs of AFib on rhythm strip. ABDOMEN: Obese, soft. Bowel sounds present. EXTREMITIES: No erythema or edema. IMAGING: Chest x-ray done this morning does show some cardiomegaly with possible interstitial edema. LABORATORY DATA: White count of 5000, H & H are 9.1 and 34.2, platelet count 177,000. The patient did have a blood gas this morning, pH was normal at 7.38, pCO2 was elevated at 82, pO2 was significantly elevated at 188. This is on 5 liters via nasal cannula. Serum CO2 this morning was 52. IMPRESSION: 1. [id number]-[id number]-euvlvom respiratory failure with hypercarbia. 2. Chronic obstructive pulmonary disease. 3. Obstructive sleep apnea. 4. Obesity hypoventilation syndrome. 5. COR pulmonale. 6. Pulmonary hypertension. PLAN: At this point, we recommend to continue BiPAP. Patient's saturations are running in the recommended range of 88 to 92% while I was in with him on the BiPAP. At this time, according to the nursing staff, family is discussing the comfort measures. I think that this is appropriate in this instance. Until then, keep current medications as far as pulmonary toilet and respiratory medications as they are.
[2017-09-04] MEDS ORDERED: FUROSEMIDE INJ 60 MG in SYRINGE 0 ML IV SCH (17:00)
--- NOTE | 2017-09-04 17:26 | Progress Note ---
Medicine Progress Note Date & Time of Visit: Sep 04, 2017 at 17:25. Subjective Patient was seen earlier this AM while his Cherie was at the bedside; again overnight the patient was agitated and combative and yelling out as well as not wanting the bipap on. The patient was easily awakened but was very confused and drowsy. Later this afternoon was called to the bedside as the patient A&Ox3 and off the bipap. Cherie was at the bedside and a POLST form was completed with discussion between the patient, his , and myself. The patient has elected to change code status to level 5 DNR, but he is ok with bipap, antibiotics, and medications. POLST form signed and given to the director community organization. Was NPO much of the day, will resume PO now that patient is awake and following directions. Objective Last 8 Hrs Date Time Temp Pulse Resp B/P (MAP) Pulse Ox O2 Delivery O2 Flow Rate FiO2 09/04/17 17:18 37.0 95 26 92 3.0 09/04/17 16:00 Nasal Cannula 3.0 09/04/17 15:05 37.0 95 26 168/77 (107) 92 Nasal Cannula 2.5 09/04/17 14:15 95 25 92 BiPAP/CPAP 30 09/04/17 14:14 95 92 30 09/04/17 14:07 37.1 92 20 194/101 (132) 90 BiPAP 09/04/17 12:00 BiPAP 30 Physical Exam: GENERAL: Patient is in no acute distress. HEENT: No acute trauma, normocephalic, mucous membranes moist, no nasal congestion, no scleral icterus. NECK: No stridor, trachea is midline. LUNGS: Slight expiratory wheezes, no rhonchi, breath sounds equal. Diminished bases HEART: Without murmurs gallops or rubs, regular rate and rhythm. ABDOMEN: Soft, nontender, bowel sounds positive EXTREMITIES: No cyanosis; dependent edema, full range of motion of all the joints without pain or difficulty, no signs for acute trauma. NEUROLOGIC: Confused, no apparent acute motor or sensory deficits, no focal weakness. Awakens to verbal but was confused this morning SKIN: No rash, no jaundice, no diaphoresis. Laboratory Results: Last 24 Hours Test 09/03/17 19:55 09/04/17 04:31 09/04/17 06:15 09/04/17 06:41 Bedside Glucose 213 mg/dl 129 mg/dl White Blood Count 5.73 K/uL Red Blood Count 4.59 M/uL Hemoglobin 9.1 g/dL Hematocrit 34.2 % Mean Corpuscular Volume 74.5 fL Mean Corpuscular Hemoglobin 19.8 pg Mean Corpuscular Hemoglobin Concent 26.6 g/dl RDW Standard Deviation 51.4 fL RDW Coefficient of Variation 18.8 % Platelet Count 177 K/uL Mean Platelet Volume 8.9 fL Sodium Level 144 mmol/L Potassium Level 3.7 mmol/L Chloride Level 96 mmol/L Carbon Dioxide Level 52 mmol/L Anion Gap -4.0 mmol/L Blood Urea Nitrogen 13 mg/dl Creatinine 0.95 mg/dl Est Creatinine Clear Calc Drug Dose 84.8 ml/min Estimated GFR () 89.8 Estimated GFR (Non- 77.4 BUN/Creatinine Ratio 13.8 Random Glucose 102 mg/dl Calcium Level 8.7 mg/dl Phosphorus Level 1.7 mg/dl Magnesium Level 2.1 mg/dl Arterial Blood pH 7.38 Arterial Blood Partial Pressure CO2 82 mmHg Arterial Blood Partial Pressure O2 188 mm/Hg Arterial Blood HCO3 47 mmol/L Arterial Blood Oxygen Saturation 98.2 % Arterial Blood Base Excess 18.6 mEq/L Arterial Blood Gas Delivery 5L Khoa Test POS Test 09/04/17 11:15 Bedside Glucose 156 mg/dl Assessment & Plan SEVERE SEPSIS: from BACTEREMIA -cultures grew MDR E.COLI from blood cultures X 2 sets -met criteria for severe sepsis on admission with fever/ leukocytosis/ tachycardia/tachypnea/hypotension/acute renal failure/confusion -initially treated with empiric broad-spectrum antibiotic with IV vancomycin/ Zosyn -recent history of Pseudomonas and enterococcus urinary tract infection -was unable to provide a clean catch urine on admission, and nursing unable to to put a Rodriguez catheter or straight cath by nursing due to history of BPH -Urology consulted and rodriguez placed by attending -Urine culture catheterized sample no growth/patient was already been on IV antibiotic treatment -remains afebrile, BP improved, no leukocytosis -08/27/17; 2 sets blood culture; gram-negative bacilli-->E. coli: Multidrug- resistant: Resistant to quinolone/ampicillin; Sensitive to Rocephin/Invanz/ imipenem -ID consulted, IV vancomycin/IV Zosyn discontinued; started on IV Rocephin 2 g daily -Repeat blood culture on 08-29-17: Grew E coli with same sensitivities -3rd set Blood cultures: no growth -PICC Line placed; -per ID: patient should be treated with ceftriaxone 2 gm daily. Recommend 7 days of IV antibiotics with transition to oral if remains afebrile following that HYPOXEMIA/ACUTE ON CHRONIC RESPIRATORY FAILURE: -likely multifactorial from decompensated CHF with diastolic dysfunction/CO2 retention from OHS and GILLES with poor outpatient compliance -has been on Bipap since early this AM, ABG POC showed: -continue on Neb tx -Pulmonary consulted, appreciate recs -No role for steroids at this time -diuresis as tolerated CONFUSION/METABOLIC ENCEPHALOPATHY: -possibly due to severe sepsis/acute renal failure, but also noted to have CO2 trending upward which could be contributing -patient worse today per staff -on treatment of infection/correction of hypoxemia/resolution of renal, Bipap as tolerated and qHS -remains high fall risk, ordered bed alarm, low boy bed -on 1:1 observation due to increased agitation/worsening of confusion/sundowning ACUTE ON CHRONIC DIASTOLIC CONGESTIVE HEART FAILURE EXACERBATION: -Lasix and Zaroxolyn were on hold initially in setting of severe sepsis/risk of intravascular volume depletion -TTE from July 2017, normal EF and valvular function. -Cardiology eval appreciated -was subsequently given Lasix 40 mg IV BID for evidence of vol over load ( CXR showed pulm congestion /elevated Pro BNP ) and pt diuresed > 2.5 L -CXR today demonstrated b/l pleural effusions and worsening congestive changes, will thus increase lasix from PO to IV at 60mg BID -monitor daily weights and I's and O's closely -lasix held for today due to NPO status ARRHYTHMIA: PAC/PVC -Cardiology was consulted, appreciate input -No evidence of A. fib noted -noted to have frequent PAC/PVC possible secondary to sepsis/acute renal failure -No cardiac intervention indicated -Cardiology recommended correction of the underlying cause DM TYPE II: -continue Lantus + correction scale insulin -Pharmacy consulted for glycemic management, appreciate assistance OBSTRUCTIVE SLEEP APNEA: -continue BiPAP at night -known non-compliance at home HTN: -stable, occasionally on lower side of normal -Lasix resumed; changed back to IV -continued on Lopressor with holding parameters RENEA ON CKD STAGE III: resolved -had RENEA due to severe sepsis/infection-intravascular volume depletion -renal function at approximate baseline -resumed Lasix 40 mg PO twice daily: this was changed today to IV lasix 60mg BID due to worsening CXR/CHF BPH: -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 Qureshi, and recommended patient to continue to keep Rodriguez catheter upon discharge -also has outpatient follow-up with Dr. Hameed and will need outpatient cystoscopy to evaluate for urethral stricture SACRAL DECUBITUS ULCER: STAGE I/II -was present on admission -Wound care consulted, appreciate recs Current Inpatient Medications: Current Inpatient Medications Medications (Trade) Dose Ordered Sig/Bj Route Start Time Stop Time Status Last Admin Dose Admin Heparin Sodium (Porcine) (Heparin Sq 5000 Unit/0.5ml) 5,000 unit Q8 SQ 08/27/17 22:00 09/26/17 21:59 09/04/17 14:18 5,000 UNIT Acetaminophen (Tylenol Tab) 650 mg Q4H PRN PO 08/27/17 20:30 09/26/17 20:29 08/31/17 03:51 650 MG Al Hydrox/Mg Hydrox/Simethicone (Maalox Max Susp) 15 ml Q4H PRN PO 08/27/17 20:30 09/26/17 20:29 Ondansetron HCl (Zofran Inj) 4 mg Q6H PRN IV 08/27/17 20:30 09/26/17 20:29 Nitroglycerin (Nitrostat Tab) 0.4 mg UD PRN SL 08/27/17 20:30 09/26/17 20:29 Polyethylene (Miralax Powder Packet) 17 gm DAILY PRN PO 08/27/17 20:30 09/26/17 20:29 Ascorbic Acid (Vitamin C Tab) 500 mg DAILY PO 08/28/17 09:00 09/27/17 08:59 09/03/17 18:23 500 MG Aspirin (Ecotrin Tab) 81 mg DAILY PO 08/28/17 09:00 09/27/17 08:59 09/03/17 18:20 81 MG Finasteride (Proscar Tab) 5 mg QAM PO 08/28/17 09:00 09/27/17 08:59 09/03/17 18:21 5 MG Folic Acid (Folvite Tab) 1 mg DAILY PO 08/28/17 09:00 09/27/17 08:59 09/03/17 18:22 1 MG Gabapentin (Neurontin Cap) 300 mg BID PO 08/27/17 21:00 09/26/17 20:59 Future Hold 09/02/17 09:11 300 MG Magnesium Oxide (Mag-Ox Tab) 400 mg DAILY PO 08/28/17 09:00 09/27/17 08:59 09/03/17 18:19 400 MG Metoprolol Tartrate (Lopressor Tab) 12.5 mg BID PO 08/27/17 21:00 09/26/17 20:59 09/03/17 18:20 12.5 MG Multivitamins (Multivitamin Tab) 1 tab DAILY PO 08/28/17 09:00 09/27/17 08:59 09/03/17 18:20 1 TAB Nystatin/ Triamcinolone Acetonide (Mycogen II Crm) 1 appln BID EXT 08/27/17 21:00 09/26/17 20:59 09/04/17 11:54 1 APPLN Potassium Chloride (Klor-Con Tab) 20 meq BID PO 08/27/17 21:00 09/26/17 20:59 Future hold 09/03/17 18:23 20 MEQ Simvastatin (Zocor Tab) 40 mg QPM PO 08/27/17 21:00 09/26/17 20:59 09/02/17 20:36 40 MG Tamsulosin HCl (Flomax Cap) 0.4 mg HS PO 08/27/17 21:00 09/26/17 20:59 09/02/17 20:35 0.4 MG Venlafaxine HCl (effeXOR TAB) 75 mg BID PO 08/27/17 21:00 09/26/17 20:59 09/03/17 18:22 75 MG Calcium/Vitamin D (Caltrate Plus Tab) 1 tab DAILY PO 08/28/17 09:00 09/27/17 08:59 09/03/17 18:21 1 TAB Insulin Aspart (novoLOG ASPART) SLIDING SCALE G... ACHS SC 08/27/17 21:00 09/26/17 20:59 09/04/17 11:56 1 UNITS Ipratropium [place] (Atrovent 0.02% 0.5MG/2.5ML Neb) 0.5 mg Q4 PRN INH 08/28/17 08:30 09/27/17 08:29 Levalbuterol (Xopenex 1.25MG/ 0.5ML Neb) 1.25 mg Q4 PRN INH 08/28/17 08:30 09/27/17 08:29 Miscellaneous Information (Consult Glycemic Management Pharmacy) 1 ea UD PRN N/A 08/28/17 14:27 09/27/17 14:26 Miconazole Nitrate (Desenex Powder) 1 appln BID EXT 08/29/17 21:00 09/28/17 20:59 09/04/17 11:53 1 APPLN Miconazole Nitrate (Desenex Powder) 1 appln PRN PRN EXT 08/29/17 15:30 09/28/17 15:29 Ceftriaxone Sodium 2000 mg/ Dextrose 70 ml @ 100 mls/hr Q24H IV 08/31/17 20:00 09/14/17 19:59 09/03/17 20:24 100 MLS/HR Albuterol/ Ipratropium (Duoneb) 3 ml Q2H PRN INH 09/02/17 00:15 10/02/17 00:14 Heparin Sodium (Porcine) (Heparin 10 Unit/ ml 5 ml Flush) 5 ml PRN PRN FLUSH 09/02/17 17:45 10/02/17 17:44 Ipratropium [place] (Atrovent 0.02% 0.5MG/2.5ML Neb) 0.5 mg Q6R INH 09/03/17 03:00 10/03/17 02:59 09/04/17 14:12 0.5 MG Levalbuterol (Xopenex 1.25MG/ 0.5ML Neb) 1.25 mg Q6R INH 09/03/17 03:00 10/03/17 02:59 09/04/17 14:12 1.25 MG Insulin Glargine (Lantus Solostar Pen) 18 units HS SQ 09/04/17 21:00 10/04/17 20:59 Haloperidol Lactate (Haldol Inj) 2 mg Q2H PRN IM 09/04/17 06:30 10/04/17 06:29 Haloperidol (Haldol Tab) 2 mg Q4H PRN PO 09/04/17 06:45 10/04/17 06:29 Pantoprazole Sodium 40 mg/ Syringe 10 ml @ 5 mls/min DAILY@11 IV 09/04/17 11:00 10/04/17 10:59 09/04/17 11:53 5 MLS/MIN
--- NOTE | 2017-09-04 17:29 | Infectious Disease Progress Nt ---
Progress Note Date of Service Sep 04, 2017. Subjective Pt evaluation today including: conversation w/ patient, physical exam, chart review, lab review, review of studies, conversation w/ call center consultant, review of inpatient medication list Remains confused, otherwise no obvious significant change. Follow-up blood cultures are negative to date. No fever. All Other Systems: Reviewed and Negative Medications Current Inpatient Medications Medications (Trade) Dose Ordered Sig/Bj Route Start Time Stop Time Status Last Admin Dose Admin Heparin Sodium (Porcine) (Heparin Sq 5000 Unit/0.5ml) 5,000 unit Q8 SQ 08/27/17 22:00 09/26/17 21:59 09/04/17 14:18 5,000 UNIT Acetaminophen (Tylenol Tab) 650 mg Q4H PRN PO 08/27/17 20:30 09/26/17 20:29 08/31/17 03:51 650 MG Al Hydrox/Mg Hydrox/Simethicone (Maalox Max Susp) 15 ml Q4H PRN PO 08/27/17 20:30 09/26/17 20:29 Ondansetron HCl (Zofran Inj) 4 mg Q6H PRN IV 08/27/17 20:30 09/26/17 20:29 Nitroglycerin (Nitrostat Tab) 0.4 mg UD PRN SL 08/27/17 20:30 09/26/17 20:29 Polyethylene (Miralax Powder Packet) 17 gm DAILY PRN PO 08/27/17 20:30 09/26/17 20:29 Ascorbic Acid (Vitamin C Tab) 500 mg DAILY PO 08/28/17 09:00 09/27/17 08:59 09/03/17 18:23 500 MG Aspirin (Ecotrin Tab) 81 mg DAILY PO 08/28/17 09:00 09/27/17 08:59 09/03/17 18:20 81 MG Finasteride (Proscar Tab) 5 mg QAM PO 08/28/17 09:00 09/27/17 08:59 09/03/17 18:21 5 MG Folic Acid (Folvite Tab) 1 mg DAILY PO 08/28/17 09:00 09/27/17 08:59 09/03/17 18:22 1 MG Gabapentin (Neurontin Cap) 300 mg BID PO 08/27/17 21:00 09/26/17 20:59 Future Hold 09/02/17 09:11 300 MG Magnesium Oxide (Mag-Ox Tab) 400 mg DAILY PO 08/28/17 09:00 09/27/17 08:59 09/03/17 18:19 400 MG Metoprolol Tartrate (Lopressor Tab) 12.5 mg BID PO 08/27/17 21:00 09/26/17 20:59 09/03/17 18:20 12.5 MG Multivitamins (Multivitamin Tab) 1 tab DAILY PO 08/28/17 09:00 09/27/17 08:59 09/03/17 18:20 1 TAB Nystatin/ Triamcinolone Acetonide (Mycogen II Crm) 1 appln BID EXT 08/27/17 21:00 09/26/17 20:59 09/04/17 11:54 1 APPLN Potassium Chloride (Klor-Con Tab) 20 meq BID PO 08/27/17 21:00 09/26/17 20:59 Future hold 09/03/17 18:23 20 MEQ Simvastatin (Zocor Tab) 40 mg QPM PO 08/27/17 21:00 09/26/17 20:59 09/02/17 20:36 40 MG Tamsulosin HCl (Flomax Cap) 0.4 mg HS PO 08/27/17 21:00 09/26/17 20:59 09/02/17 20:35 0.4 MG Venlafaxine HCl (effeXOR TAB) 75 mg BID PO 08/27/17 21:00 09/26/17 20:59 09/03/17 18:22 75 MG Calcium/Vitamin D (Caltrate Plus Tab) 1 tab DAILY PO 08/28/17 09:00 09/27/17 08:59 09/03/17 18:21 1 TAB Insulin Aspart (novoLOG ASPART) SLIDING SCALE G... ACHS SC 08/27/17 21:00 09/26/17 20:59 09/04/17 11:56 1 UNITS Ipratropium [place] (Atrovent 0.02% 0.5MG/2.5ML Neb) 0.5 mg Q4 PRN INH 08/28/17 08:30 09/27/17 08:29 Levalbuterol (Xopenex 1.25MG/ 0.5ML Neb) 1.25 mg Q4 PRN INH 08/28/17 08:30 09/27/17 08:29 Miscellaneous Information (Consult Glycemic Management Pharmacy) 1 ea UD PRN N/A 08/28/17 14:27 09/27/17 14:26 Miconazole Nitrate (Desenex Powder) 1 appln BID EXT 08/29/17 21:00 09/28/17 20:59 09/04/17 11:53 1 APPLN Miconazole Nitrate (Desenex Powder) 1 appln PRN PRN EXT 08/29/17 15:30 09/28/17 15:29 Ceftriaxone Sodium 2000 mg/ Dextrose 70 ml @ 100 mls/hr Q24H IV 08/31/17 20:00 09/14/17 19:59 09/03/17 20:24 100 MLS/HR Albuterol/ Ipratropium (Duoneb) 3 ml Q2H PRN INH 09/02/17 00:15 10/02/17 00:14 Heparin Sodium (Porcine) (Heparin 10 Unit/ ml 5 ml Flush) 5 ml PRN PRN FLUSH 09/02/17 17:45 10/02/17 17:44 Ipratropium [place] (Atrovent 0.02% 0.5MG/2.5ML Neb) 0.5 mg Q6R INH 09/03/17 03:00 10/03/17 02:59 09/04/17 14:12 0.5 MG Levalbuterol (Xopenex 1.25MG/ 0.5ML Neb) 1.25 mg Q6R INH 09/03/17 03:00 10/03/17 02:59 09/04/17 14:12 1.25 MG Insulin Glargine (Lantus Solostar Pen) 18 units HS SQ 09/04/17 21:00 10/04/17 20:59 Haloperidol Lactate (Haldol Inj) 2 mg Q2H PRN IM 09/04/17 06:30 10/04/17 06:29 Haloperidol (Haldol Tab) 2 mg Q4H PRN PO 09/04/17 06:45 10/04/17 06:29 Pantoprazole Sodium 40 mg/ Syringe 10 ml @ 5 mls/min DAILY@11 IV 09/04/17 11:00 10/04/17 10:59 09/04/17 11:53 5 MLS/MIN Objective Vital Signs Date Time Temp Pulse Resp B/P (MAP) Pulse Ox O2 Delivery O2 Flow Rate FiO2 09/04/17 17:18 37.0 95 26 92 3.0 09/04/17 16:00 Nasal Cannula 3.0 09/04/17 15:05 37.0 95 26 168/77 (107) 92 Nasal Cannula 2.5 09/04/17 14:15 95 25 92 BiPAP/CPAP 30 09/04/17 14:14 95 92 30 09/04/17 14:07 37.1 92 20 194/101 (132) 90 BiPAP 09/04/17 12:00 BiPAP 30 09/04/17 08:00 BiPAP 30 09/04/17 07:34 100 91 30 09/04/17 07:10 97 40 86 Nasal Cannula 3.0 09/04/17 07:06 37.7 102 28 169/95 (119) 85 09/04/17 06:12 96 32 93 Nasal Cannula 5.0 09/04/17 04:01 36.8 86 32 167/78 (107) 87 BiPAP 30 09/04/17 04:00 BiPAP 30 09/04/17 02:03 79 88 30 09/04/17 02:02 89 28 88 BiPAP/CPAP 30 09/04/17 00:00 BiPAP 30 09/03/17 23:19 36.6 88 23 176/87 (116) 90 BiPAP 30 09/03/17 20:00 BiPAP 30 09/03/17 19:17 36.8 90 22 138/65 (89) 92 09/03/17 19:17 90 92 30 09/03/17 19:16 90 37 92 BiPAP/CPAP 30 Physical Exam General Appearance: WD/WN, no apparent distress Eyes: normal inspection, EOMI, sclerae normal ENT: normal ENT inspection, pharynx normal Neck: supple, no adenopathy, thyroid normal, trachea midline Respiratory/Chest: chest non-tender, lungs clear, normal breath sounds, no respiratory distress Cardiovascular: regular rate, rhythm, no gallop, no murmur Abdomen: normal bowel sounds, non tender, soft, no organomegaly Extremities: non-tender, no pedal edema Neurologic/Psychiatric: alert, + disoriented Skin: normal color, no rash Lymphatic: no adenopathy Laboratory Results Last 24 Hours Test 09/03/17 19:55 09/04/17 04:31 09/04/17 06:15 09/04/17 06:41 Bedside Glucose 213 mg/dl 129 mg/dl White Blood Count 5.73 K/uL Red Blood Count 4.59 M/uL Hemoglobin 9.1 g/dL Hematocrit 34.2 % Mean Corpuscular Volume 74.5 fL Mean Corpuscular Hemoglobin 19.8 pg Mean Corpuscular Hemoglobin Concent 26.6 g/dl RDW Standard Deviation 51.4 fL RDW Coefficient of Variation 18.8 % Platelet Count 177 K/uL Mean Platelet Volume 8.9 fL Sodium Level 144 mmol/L Potassium Level 3.7 mmol/L Chloride Level 96 mmol/L Carbon Dioxide Level 52 mmol/L Anion Gap -4.0 mmol/L Blood Urea Nitrogen 13 mg/dl Creatinine 0.95 mg/dl Est Creatinine Clear Calc Drug Dose 84.8 ml/min Estimated GFR () 89.8 Estimated GFR (Non- 77.4 BUN/Creatinine Ratio 13.8 Random Glucose 102 mg/dl Calcium Level 8.7 mg/dl Phosphorus Level 1.7 mg/dl Magnesium Level 2.1 mg/dl Arterial Blood pH 7.38 Arterial Blood Partial Pressure CO2 82 mmHg Arterial Blood Partial Pressure O2 188 mm/Hg Arterial Blood HCO3 47 mmol/L Arterial Blood Oxygen Saturation 98.2 % Arterial Blood Base Excess 18.6 mEq/L Arterial Blood Gas Delivery 5L Khoa Test POS Test 09/04/17 11:15 Bedside Glucose 156 mg/dl Assessment and Plan E. coli bacteremia with encephalopathy, likely from urinary tract source. Patient to be treated with ceftriaxone 2 gm daily. Recommend 7 days of IV antibiotics with transition to oral if remains afebrile.
[2017-09-04] MEDS: SIMVASTATIN 40 MG TAB PO SCH (20:56)
[2017-09-04] MEDS: TAMSULOSIN HCL 0.4 MG CAP PO SCH (20:56)
[2017-09-04] MEDS ORDERED: INSULIN GLARGINE SOLOSTAR 100 UNITS/ML 3 ML PEN SQ SCH ×2 (21:00)
[2017-09-04] MEDS: CEFTRIAXONE SOD INJ 2,000 MG in DEXTROSE 5% 50ML 50 ML IV SCH (21:15)
[2017-09-05] VITALS (13 sets, daily range): BP systolic 127–164; BP diastolic 63–83; PULSE 78–110; TEMP 36.6–37.1; O2SAT 94–100
[2017-09-05] MEDS: IPRATROPIUM BROMIDE NEB SOLN 0.02% 2.5 ML VIAL INH SCH ×3 (01:36→14:07)
[2017-09-05] MEDS: LEVALBUTEROL 1.25MG/0.5ML NEB INH SCH ×3 (01:36→14:07)
[2017-09-05] MEDS: HEPARIN SOD 5000 UNIT/0.5 ML CARP SQ SCH ×3 (05:49→21:47)
[2017-09-05 06:22] LABS: HEMATOCRIT 36.6 % (42-52); HEMOGLOBIN 9.7 g/dL (14.0-18.0); MEAN CELL VOLUME 74.5 fL (80-100); MEAN CORPUSCULAR HEMOGLOBIN 19.8 pg (25-34); MEAN CORPUSCULAR HGB CONC 26.5 g/dl (32-36); MEAN PLATELET VOLUME 9.4 fL (7.4-10.4); PLATELET COUNT 211 K/uL (130-400); RED CELL DISTRIBUTION WIDTH CV 19.5 % (11.5-14.5); RED CELL DISTRIBUTION WIDTH SD 52.5 fL (36.4-46.3); WHITE BLOOD COUNT 5.96 K/uL (4.8-10.8)
[2017-09-05 06:56] LABS: CALCIUM 9.1 mg/dl (8.5-10.1); CREATININE 0.93 mg/dl (0.60-1.40); POTASSIUM 3.5 mmol/L (3.5-5.1)
[2017-09-05] MEDS: METOPROLOL TARTRATE 25 MG TAB PO SCH ×2 (08:52→21:40)
[2017-09-05] MEDS: MICONAZOLE NITRATE POWDER 43 GM EXT SCH ×2 (08:54→21:45)
[2017-09-05] MEDS: INSULIN ASPART 100 UNITS/ML 3 ML PEN SC SCH ×4 (08:57→21:47)
[2017-09-05] MEDS: NYSTATIN/TRIAMCINOLONE CR 15 GM TUBE EXT SCH ×2 (08:59→21:45)
[2017-09-05] MEDS: ASCORBIC ACID 500 MG TAB PO SCH (09:00)
[2017-09-05] MEDS: MAGNESIUM OXIDE 400 MG TAB PO SCH (09:00)
[2017-09-05] MEDS: MULTIVITAMIN TAB PO SCH (09:00)
[2017-09-05] MEDS: CALCIUM 600MG + VIT D 400 IU TAB PO SCH (09:00)
[2017-09-05] MEDS: VENLAFAXINE HCL 37.5 MG TAB PO SCH ×2 (09:06→21:40)
[2017-09-05] MEDS: FINASTERIDE 5 MG TAB PO SCH (09:10)
[2017-09-05] MEDS: POTASSIUM CHLORIDE 20 MEQ TABCR PO SCH ×2 (09:14→21:40)
[2017-09-05] MEDS: ASPIRIN 81 MG ECTAB PO SCH (09:15)
[2017-09-05] MEDS: FUROSEMIDE 40 MG TAB PO SCH ×2 (10:24→16:30)
[2017-09-05] MEDS: PANTOprazole INJ 40 MG in SYRINGE 0 ML IV SCH (10:24)
--- NOTE | 2017-09-05 13:52 | Pharmacy Progress Note ---
Pharmacy Glycemic Short Note 2 Date of Service Sep 05, 2017. OUTPATIENT ANTIDIABETIC REGIMEN: * Lantus 25 units SQ qPM * Novolog 10 units SQ TID with meals * HbA1c: 9.1% August 2017 Test 09/04/17 16:06 09/04/17 19:55 09/05/17 05:40 09/05/17 07:28 Bedside Glucose 139 mg/dl (70-99) 180 mg/dl (70-99) 171 mg/dl (70-99) Random Glucose 140 mg/dl (70-99) ASSESSMENT: * BSGs have ranged 102-180 over the last 24 hours, only requiring 16 units TDD yesterday * Lantus dose reduced last night to prevent hypoglycemia. Will place Lantus on a scale based on BSG to minimize chance of hypoglycemia. * I will tighten CF and CR slightly, as pt did not correct down to goal with correction last night. PLAN FOR INPATIENT GLYCEMIC CONTROL: * Basal insulin * Lantus SQ HS * BSG < 100mg/dl - 0 units * BSG 100-180mg/dl - 13 units * BSG > 180mg/dl - 18 units * Bolus insulin * NovoLog per scale ACHS or Q6hrs while NPO * Goal Range: Low 110 mg/dL - High 140 mg/dL * CHANGE: Correction Factor: 20 mg/dL/unit * CHANGE: Nutritional / Prandial insulin per carb ratio of 1 unit per 7 grams CHO consumed PLAN FOR DISCHARGE: * A1c 9.1%, would recommend prompt f/u with PCP or purification supervisor on discharge to adjust outpt medication regimen. His A1c has increased over the last 4 months. His inpatient insulin requirements are much lower vs outpt requirements , perhaps compliance with diet and medications are partially to blame?
--- NOTE | 2017-09-05 13:56 | PULMONARY PROGRESS NOTE ---
DATE: 09/05/2017 PROBLEM LIST: Includes: 1. Acute on chronic respiratory failure with hypercarbia: 1. COPD. 2. Sleep apnea. 3. Obesity hypoventilation syndrome. 4. COR pulmonale. SUBJECTIVE: The patient is again sleeping today. He does arouse up slightly with verbal stimuli but returns to sleep immediately. He does not appear in any distress. Unfortunately, he is unable to provide any type of history. In reviewing the chart, the patient apparently had aroused up earlier this morning and according to the nurse's note, he was alert and oriented x4. Apparently, he ate breakfast this shift, but had BiPAP placed back on and has been sleeping since he got the BiPAP on. No other complaints in reviewing the chart as well. Apparently, family has made the patient a DNR. Prior to this, he apparently was a DNI. The patient at this point is a DNR according to nurses' note POLST form signed. I reviewed Dr. Martinez's note and the patient has had E. Coli/sepsis/bacteremia with encephalopathy. Recommendations are for ceftriaxone 2 grams daily for seven days and then transition to oral if the patient remains afebrile. Unfortunately, no other history is able to be obtained. OBJECTIVE: GENERAL: The patient is a 77-year-old male lying in bed, has BiPAP on. Again, does arouse up with verbal stimuli, but provides no answers, unable to ascertain orientation status. VITAL SIGNS: Temperature 37.1, pulse 84, respirations 28, blood pressure 164/72, pulse ox 96% on 5 to 6 liters of nasal cannula. The patient is on BiPAP, currently saturating about 93%. NECK: Short, thick, no mass, no adenopathy, no bruits. CHEST: The patient has some coarse breath sounds throughout, difficult to ascertain if he has any wheezing due to his coarse breath sounds and the noise from the BiPAP. CARDIOVASCULAR: Regular rate and rhythm. No murmurs, gallops or rubs at present. ABDOMEN: Bowel sounds are present. Abdomen is soft, obese and nontender. No guarding, rigidity or organomegaly. EXTREMITIES: No erythema or edema. LABORATORY DATA: Shows white count of 5,900, H and H of 9.7 and 36.6, platelet count 211,000. Serum CO2 has dropped from 52 down to 45. No new radiologic data. IMPRESSION: 1. A 77-year-old male with acute on chronic respiratory failure with hypercarbia. 2. Chronic obstructive pulmonary disease. 3. Sleep apnea. 4. Obesity hypoventilation syndrome. 5. COR pulmonale. PLAN: At this point is for patient continued BiPAP, appears to be saturating well. From what I can gather from the nurse's note, he does have periods of time where he is alert and oriented, but when he is on the BiPAP, he sleeps very deeply and it is difficult to arouse. At this point, we will continue his nebulization at q. 6 hours with Atrovent and Xopenex. Continue BiPAP, continue oxygen supplementation to maintain sats between 88% and 92%.
--- NOTE | 2017-09-05 17:41 | Progress Note ---
Medicine Progress Note Date & Time of Visit: Sep 05, 2017 at 17:41. Subjective Patient was seen earlier in the day, was awake and oriented, did not wear bipap overnight but agrees to wear it today. No overnight events noted. Took PO meds and diet this morning. No complaints otherwise. Was seen again later in the day with family present at the bedside, patient was appearing more awake and alert and was still a bit drowsy but was interactive. Objective Last 8 Hrs Date Time Temp Pulse Resp B/P (MAP) Pulse Ox O2 Delivery O2 Flow Rate FiO2 09/05/17 16:00 BiPAP 09/05/17 15:13 37.1 86 24 157/83 (107) 98 BiPAP 09/05/17 14:07 96 40 09/05/17 14:07 88 22 96 BiPAP/CPAP 40 09/05/17 13:20 37.1 78 27 127/80 (96) 100 6.0 09/05/17 12:00 94 Nasal Cannula 6.0 09/05/17 10:22 85 148/71 (96) Physical Exam: GENERAL: Patient is in no acute distress. HEENT: No acute trauma, normocephalic, mucous membranes moist, no nasal congestion, no scleral icterus. NECK: No stridor, trachea is midline. LUNGS: Expiratory wheezes, no rhonchi, breath sounds equal. Diminished bases HEART: Without murmurs gallops or rubs, regular rate and rhythm. ABDOMEN: Soft, nontender, bowel sounds positive EXTREMITIES: No cyanosis; + dependent edema, full range of motion of all the joints without pain or difficulty, no signs for acute trauma. NEUROLOGIC: Drowsy but awake and oriented, no apparent acute motor or sensory deficits, no focal weakness. SKIN: No rash, no jaundice, no diaphoresis. Laboratory Results: Last 24 Hours Test 09/04/17 19:55 09/05/17 05:40 09/05/17 07:28 Bedside Glucose 180 mg/dl 171 mg/dl White Blood Count 5.96 K/uL Red Blood Count 4.91 M/uL Hemoglobin 9.7 g/dL Hematocrit 36.6 % Mean Corpuscular Volume 74.5 fL Mean Corpuscular Hemoglobin 19.8 pg Mean Corpuscular Hemoglobin Concent 26.5 g/dl RDW Standard Deviation 52.5 fL RDW Coefficient of Variation 19.5 % Platelet Count 211 K/uL Mean Platelet Volume 9.4 fL Sodium Level 142 mmol/L Potassium Level 3.5 mmol/L Chloride Level 96 mmol/L Carbon Dioxide Level 45 mmol/L Anion Gap 2.0 mmol/L Blood Urea Nitrogen 15 mg/dl Creatinine 0.93 mg/dl Est Creatinine Clear Calc Drug Dose 83.5 ml/min Estimated GFR () 92.1 Estimated GFR (Non- 79.5 BUN/Creatinine Ratio 15.9 Random Glucose 140 mg/dl Calcium Level 9.1 mg/dl Magnesium Level 2.1 mg/dl Assessment & Plan SEVERE SEPSIS: from BACTEREMIA -cultures grew MDR E.COLI from blood cultures X 2 sets -met criteria for severe sepsis on admission with fever/ leukocytosis/ tachycardia/tachypnea/hypotension/acute renal failure/confusion -initially treated with empiric broad-spectrum antibiotic with IV vancomycin/ Zosyn -recent history of Pseudomonas and enterococcus urinary tract infection -was unable to provide a clean catch urine on admission, and nursing unable to to put a Rodriguez catheter or straight cath by nursing due to history of BPH -Urology consulted and rodriguez placed by attending -Urine culture catheterized sample no growth/patient was already been on IV antibiotic treatment -remains afebrile, BP improved, no leukocytosis -08/27/17; 2 sets blood culture; gram-negative bacilli-->E. coli: Multidrug- resistant: Resistant to quinolone/ampicillin; Sensitive to Rocephin/Invanz/ imipenem -ID consulted, IV vancomycin/IV Zosyn discontinued; started on IV Rocephin 2 g daily -Repeat blood culture on 08-29-17: Grew E coli with same sensitivities -3rd set Blood cultures: no growth -repeat urine culture negative -PICC Line placed; -per ID: patient should be treated with ceftriaxone 2 gm daily. Recommend 7 days of IV antibiotics with transition to oral if remains afebrile following that HYPOXEMIA/ACUTE ON CHRONIC RESPIRATORY FAILURE: -likely multifactorial from decompensated CHF with diastolic dysfunction/CO2 retention from OHS and GILLES with poor outpatient compliance -has been on Bipap during the day, encouraged patient to wear it overnight, his even brought his bipap and mask from home for patient's comfort -continue on Neb tx -Pulmonary consulted, appreciate recs -No role for steroids at this time -diuresis as tolerated CONFUSION/METABOLIC ENCEPHALOPATHY: -possibly due to severe sepsis/acute renal failure, but also noted to have CO2 trending upward which could be contributing -on treatment of infection/correction of hypoxemia/resolution of renal, Bipap as tolerated and qHS -remains high fall risk, ordered bed alarm, low boy bed -still requiring 1:1 observation due to increased agitation/worsening of confusion/sundowning and removal of bipap or oxygen ACUTE ON CHRONIC DIASTOLIC CONGESTIVE HEART FAILURE EXACERBATION: -Lasix and Zaroxolyn were on hold initially in setting of severe sepsis/risk of intravascular volume depletion -TTE from July 2017, normal EF and valvular function. -Cardiology eval appreciated -CXR demonstrated b/l pleural effusions and worsening congestive changes, thus increased lasix from PO to IV at 60mg BID; but held and changed to PO due to poor intake -monitor daily weights and I's and O's closely -lasix resumed PO ARRHYTHMIA: PAC/PVC -Cardiology was consulted, appreciate input -No evidence of A. fib noted -noted to have frequent PAC/PVC possible secondary to sepsis/acute renal failure -No cardiac intervention indicated -Cardiology recommended correction of the underlying cause DM TYPE II: -continue Lantus + correction scale insulin -Pharmacy consulted for glycemic management, appreciate assistance OBSTRUCTIVE SLEEP APNEA: -continue BiPAP at night -known non-compliance at home HTN: -stable, occasionally on lower side of normal -Lasix resumed -continued on Lopressor with holding parameters RENEA ON CKD STAGE III: resolved -had RENEA due to severe sepsis/infection-intravascular volume depletion -renal function at approximate baseline -resumed Lasix BID PO BPH: -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 Qureshi, and recommended patient to continue to keep Rodriguez catheter upon discharge -also has outpatient follow-up with Dr. Hameed and will need outpatient cystoscopy to evaluate for urethral stricture SACRAL DECUBITUS ULCER: STAGE I/II -was present on admission -Wound care consulted, appreciate recs Current Inpatient Medications: Current Inpatient Medications Medications (Trade) Dose Ordered Sig/Bj Route Start Time Stop Time Status Last Admin Dose Admin Heparin Sodium (Porcine) (Heparin Sq 5000 Unit/0.5ml) 5,000 unit Q8 SQ 08/27/17 22:00 5/17/18 21:59 09/05/17 13:06 5,000 UNIT Acetaminophen (Tylenol Tab) 650 mg Q4H PRN PO 08/27/17 20:30 09/26/17 20:29 08/31/17 03:51 650 MG Al Hydrox/Mg Hydrox/Simethicone (Maalox Max Susp) 15 ml Q4H PRN PO 08/27/17 20:30 09/26/17 20:29 Ondansetron HCl (Zofran Inj) 4 mg Q6H PRN IV 08/27/17 20:30 09/26/17 20:29 Nitroglycerin (Nitrostat Tab) 0.4 mg UD PRN SL 08/27/17 20:30 09/26/17 20:29 Polyethylene (Miralax Powder Packet) 17 gm DAILY PRN PO 08/27/17 20:30 09/26/17 20:29 Ascorbic Acid (Vitamin C Tab) 500 mg DAILY PO 08/28/17 09:00 09/27/17 08:59 09/03/17 18:23 500 MG Aspirin (Ecotrin Tab) 81 mg DAILY PO 08/28/17 09:00 09/27/17 08:59 09/05/17 09:15 81 MG Finasteride (Proscar Tab) 5 mg QAM PO 08/28/17 09:00 09/27/17 08:59 09/05/17 09:10 5 MG Folic Acid (Folvite Tab) 1 mg DAILY PO 08/28/17 09:00 09/27/17 08:59 09/03/17 18:22 1 MG Gabapentin (Neurontin Cap) 300 mg BID PO 08/27/17 21:00 09/26/17 20:59 Future Hold 09/02/17 09:11 300 MG Magnesium Oxide (Mag-Ox Tab) 400 mg DAILY PO 08/28/17 09:00 09/27/17 08:59 09/03/17 18:19 400 MG Metoprolol Tartrate (Lopressor Tab) 12.5 mg BID PO 08/27/17 21:00 09/26/17 20:59 09/05/17 08:52 12.5 MG Multivitamins (Multivitamin Tab) 1 tab DAILY PO 08/28/17 09:00 09/27/17 08:59 09/03/17 18:20 1 TAB Nystatin/ Triamcinolone Acetonide (Mycogen II Crm) 1 appln BID EXT 08/27/17 21:00 09/26/17 20:59 09/05/17 08:59 1 APPLN Potassium Chloride (Klor-Con Tab) 20 meq BID PO 08/27/17 21:00 09/26/17 20:59 Future hold 09/05/17 09:14 20 MEQ Simvastatin (Zocor Tab) 40 mg QPM PO 08/27/17 21:00 09/26/17 20:59 09/02/17 20:36 40 MG Tamsulosin HCl (Flomax Cap) 0.4 mg HS PO 08/27/17 21:00 09/26/17 20:59 09/02/17 20:35 0.4 MG Venlafaxine HCl (effeXOR TAB) 75 mg BID PO 08/27/17 21:00 09/26/17 20:59 09/05/17 09:06 75 MG Calcium/Vitamin D (Caltrate Plus Tab) 1 tab DAILY PO 08/28/17 09:00 09/27/17 08:59 09/03/17 18:21 1 TAB Insulin Aspart (novoLOG ASPART) SLIDING SCALE G... ACHS SC 08/27/17 21:00 09/26/17 20:59 09/05/17 13:06 6 UNITS Ipratropium [place] (Atrovent 0.02% 0.5MG/2.5ML Neb) 0.5 mg Q4 PRN INH 08/28/17 08:30 09/27/17 08:29 Levalbuterol (Xopenex 1.25MG/ 0.5ML Neb) 1.25 mg Q4 PRN INH 08/28/17 08:30 09/27/17 08:29 Miscellaneous Information (Consult Glycemic Management Pharmacy) 1 ea UD PRN N/A 08/28/17 14:27 09/27/17 14:26 Miconazole Nitrate (Desenex Powder) 1 appln BID EXT 08/29/17 21:00 09/28/17 20:59 09/05/17 08:54 1 APPLN Miconazole Nitrate (Desenex Powder) 1 appln PRN PRN EXT 08/29/17 15:30 09/28/17 15:29 09/04/17 21:15 1 APPLN Ceftriaxone Sodium 2000 mg/ Dextrose 70 ml @ 100 mls/hr Q24H IV 08/31/17 20:00 09/14/17 19:59 09/04/17 21:15 100 MLS/HR Albuterol/ Ipratropium (Duoneb) 3 ml Q2H PRN INH 09/02/17 00:15 10/02/17 00:14 Heparin Sodium (Porcine) (Heparin 10 Unit/ ml 5 ml Flush) 5 ml PRN PRN FLUSH 09/02/17 17:45 10/02/17 17:44 09/05/17 10:25 5 ML Ipratropium [place] (Atrovent 0.02% 0.5MG/2.5ML Neb) 0.5 mg Q6R INH 09/03/17 03:00 10/03/17 02:59 09/05/17 14:07 0.5 MG Levalbuterol (Xopenex 1.25MG/ 0.5ML Neb) 1.25 mg Q6R INH 09/03/17 03:00 10/03/17 02:59 09/05/17 14:07 1.25 MG Haloperidol Lactate (Haldol Inj) 2 mg Q2H PRN IM 09/04/17 06:30 10/04/17 06:29 Haloperidol (Haldol Tab) 2 mg Q4H PRN PO 09/04/17 06:45 10/04/17 06:29 Pantoprazole Sodium 40 mg/ Syringe 10 ml @ 5 mls/min DAILY@11 IV 09/04/17 11:00 10/04/17 10:59 09/05/17 10:24 5 MLS/MIN Furosemide (Lasix Tab) 40 mg BID17 PO 09/05/17 10:00 10/05/17 09:59 09/05/17 16:30 40 MG Insulin Glargine (Lantus Solostar Pen) SEE PROTOCOL HS SQ 09/05/17 21:00 10/05/17 20:59
[2017-09-05] MEDS: CEFTRIAXONE SOD INJ 2,000 MG in DEXTROSE 5% 50ML 50 ML IV SCH (19:43)
[2017-09-05] MEDS: SIMVASTATIN 40 MG TAB PO SCH (21:39)
[2017-09-05] MEDS: TAMSULOSIN HCL 0.4 MG CAP PO SCH (21:39)
[2017-09-05] MEDS: INSULIN GLARGINE SOLOSTAR 100 UNITS/ML 3 ML PEN SQ SCH (21:46)
[2017-09-06] VITALS (17 sets, daily range): BP systolic 114–174; BP diastolic 64–80; PULSE 77–111; TEMP 36.6–37; O2SAT 91–100
[2017-09-06] MEDS: IPRATROPIUM BROMIDE NEB SOLN 0.02% 2.5 ML VIAL INH SCH ×4 (02:06→18:42)
[2017-09-06] MEDS: LEVALBUTEROL 1.25MG/0.5ML NEB INH SCH ×4 (02:06→18:42)
[2017-09-06] MEDS: HEPARIN SOD 5000 UNIT/0.5 ML CARP SQ SCH ×3 (06:04→20:20)
[2017-09-06 06:22] LABS: HEMATOCRIT 38.2 % (42-52); HEMOGLOBIN 10.3 g/dL (14.0-18.0); MEAN CELL VOLUME 74.6 fL (80-100); MEAN CORPUSCULAR HEMOGLOBIN 20.1 pg (25-34); MEAN PLATELET VOLUME 9.6 fL (7.4-10.4); PLATELET COUNT 209 K/uL (130-400); RED CELL DISTRIBUTION WIDTH CV 19.5 % (11.5-14.5); RED CELL DISTRIBUTION WIDTH SD 52.6 fL (36.4-46.3); WHITE BLOOD COUNT 6.64 K/uL (4.8-10.8)
[2017-09-06 07:00] LABS: CALCIUM 8.7 mg/dl (8.5-10.1); CREATININE 0.96 mg/dl (0.60-1.40); POTASSIUM 3.8 mmol/L (3.5-5.1)
[2017-09-06] MEDS: NYSTATIN/TRIAMCINOLONE CR 15 GM TUBE EXT SCH ×2 (08:21→20:17)
[2017-09-06] MEDS: MICONAZOLE NITRATE POWDER 43 GM EXT SCH ×2 (08:21→20:21)
[2017-09-06] MEDS: PANTOprazole SOD 40 MG TAB PO SCH (08:22)
[2017-09-06] MEDS: MULTIVITAMIN TAB PO SCH (08:22)
[2017-09-06] MEDS: VENLAFAXINE HCL 37.5 MG TAB PO SCH ×2 (08:23→20:14)
[2017-09-06] MEDS: FINASTERIDE 5 MG TAB PO SCH (08:23)
[2017-09-06] MEDS: ASPIRIN 81 MG ECTAB PO SCH (08:24)
[2017-09-06] MEDS: METOPROLOL TARTRATE 25 MG TAB PO SCH ×2 (08:25→20:15)
[2017-09-06] MEDS: FUROSEMIDE 40 MG TAB PO SCH ×2 (08:25→17:04)
[2017-09-06] MEDS: POTASSIUM CHLORIDE 20 MEQ TABCR PO SCH ×2 (08:26→20:13)
[2017-09-06] MEDS: MAGNESIUM OXIDE 400 MG TAB PO SCH (08:26)
[2017-09-06] MEDS: ASCORBIC ACID 500 MG TAB PO SCH (08:27)
[2017-09-06] MEDS: CALCIUM 600MG + VIT D 400 IU TAB PO SCH (08:27)
[2017-09-06] MEDS: INSULIN ASPART 100 UNITS/ML 3 ML PEN SC SCH ×4 (08:29→20:18)
--- NOTE | 2017-09-06 13:21 | Pharmacy Progress Note ---
Pharmacy Glycemic Short Note 2 Date of Service Sep 06, 2017. OUTPATIENT ANTIDIABETIC REGIMEN: * Lantus 25 units SQ qPM * Novolog 10 units SQ TID with meals * HbA1c: 9.1% August 2017 Test 09/05/17 16:31 09/05/17 20:31 09/06/17 05:45 09/06/17 07:35 Bedside Glucose 187 mg/dl (70-99) 166 mg/dl (70-99) 160 mg/dl (70-99) Random Glucose 173 mg/dl (70-99) Test 09/06/17 11:39 Bedside Glucose 238 mg/dl (70-99) ASSESSMENT: * BSGs have ranged 16-238 over the last 24 hours, pt received 13 units of Lantus last night per scale, which was likely not enough for his 24 hour needs, will adjust BSG cut offs so patient will usually get 18 units * CF and CR tightened slightly yesterday, will see if increase in Lantus helps for now PLAN FOR INPATIENT GLYCEMIC CONTROL: * Basal insulin * Lantus SQ HS * BSG < 100mg/dl - 0 units * BSG 100-140mg/dl - 13 units * BSG > 140mg/dl - 18 units * Bolus insulin * NovoLog per scale ACHS or Q6hrs while NPO * Goal Range: Low 110 mg/dL - High 140 mg/dL * Correction Factor: 20 mg/dL/unit * Nutritional / Prandial insulin per carb ratio of 1 unit per 7 grams CHO consumed PLAN FOR DISCHARGE: * A1c 9.1%, would recommend prompt f/u with PCP or meeting specialist on discharge to adjust outpt medication regimen. His A1c has increased over the last 4 months. His inpatient insulin requirements are much lower vs outpt requirements , perhaps compliance with diet and medications are partially to blame?
--- NOTE | 2017-09-06 14:54 | PROGRESS NOTE ---
DATE: 09/06/2017 PROBLEM LIST: Includes: 1. Acute on chronic respiratory failure with hypercarbia. 2. COPD. 3. Sleep apnea. 4. Obesity hypoventilation syndrome. 5. Cor pulmonale. SUBJECTIVE: The patient is actually awake and alert today. His son was with him when I entered. He reports that his breathing feels like it is improving. He states that he feels the BiPAP is helping. He is not coughing as much. He is not as short of breath. Overall, he feels better. He has no chest congestion or tightness. He will cough with a little bit of mucus up from time to time, but nothing significant. No chest pain, no abdominal pain, no pain or swelling in his legs or extremities. OBJECTIVE: GENERAL: The patient is a 77-year-old male lying in bed. He does have BiPAP on via nasal mask. He is interactive and cooperative. VITAL SIGNS: Temp 36.6, pulse 91, respirations 20, blood pressure 143/76, pulse ox 96% on 6 liters. HEENT: Normocephalic, atraumatic. Pupils equal, round react to light and accommodation. Miller moist gingival and buccal mucosa. NECK: Short. No mass, no adenopathy, no bruit. CHEST: Diminished, few scattered wheezes throughout. No rale or rhonchi noted. CARDIOVASCULAR: Regular rate and rhythm. No murmurs, gallops or rubs. ABDOMEN: Obese, soft, nontender. No guarding, rigidity or organomegaly. Bowel sounds are present throughout. EXTREMITIES: No erythema or edema. LABORATORY DATA: White count of 6000, H and H 10.3 and 32, platelet 209,000. Final blood cultures are showing no growth. RADIOLOGY DATA: No new imaging. IMPRESSION: 1. A 77-year-old male with acute on chronic respiratory failure with hypercarbia: 2. Chronic obstructive pulmonary disease. 3. Sleep apnea. 4. Obesity hypoventilation. 5. Cor pulmonale. PLAN: At this point is to continue BiPAP, continue rest of his meds and slowly taper prednisone. He is stable from a pulmonary standpoint at this time. We will sign off. If there is anything that changes or if we need to re-evaluate the patient, please contact us immediately. ARACELI
--- NOTE | 2017-09-06 18:04 | Progress Note ---
Medicine Progress Note Date & Time of Visit: Sep 06, 2017 at 18:03. Subjective Patient doing ok, did wear his bipap last night and this AM and denies any difficulty tolerating it; taking PO and meds better today. No overnight events noted. Still requiring a 1:1 as patient does get confused. No complaints from patient. Objective Last 8 Hrs Date Time Temp Pulse Resp B/P (MAP) Pulse Ox O2 Delivery O2 Flow Rate FiO2 09/06/17 16:00 96 Nasal Cannula 4.0 09/06/17 14:18 81 18 94 Nasal Cannula 4.0 09/06/17 14:11 36.9 91 20 137/78 (97) 92 Nasal Cannula 4.0 09/06/17 12:00 96 Nasal Cannula 6.0 Physical Exam: GENERAL: Patient is in no acute distress. HEENT: No acute trauma, normocephalic, mucous membranes moist, no nasal congestion, no scleral icterus. NECK: No stridor, trachea is midline. LUNGS: Expiratory wheezes, no rhonchi, breath sounds equal. Diminished bases HEART: Without murmurs gallops or rubs, regular rate and rhythm. ABDOMEN: Soft, nontender, bowel sounds positive EXTREMITIES: No cyanosis; + dependent edema, full range of motion of all the joints without pain or difficulty, no signs for acute trauma. NEUROLOGIC: Drowsy but awake and oriented, no apparent acute motor or sensory deficits, no focal weakness. SKIN: No rash, no jaundice, no diaphoresis. Laboratory Results: Last 24 Hours Test 09/05/17 20:31 09/06/17 05:45 09/06/17 07:35 09/06/17 11:39 Bedside Glucose 166 mg/dl 160 mg/dl 238 mg/dl White Blood Count 6.64 K/uL Red Blood Count 5.12 M/uL Hemoglobin 10.3 g/dL Hematocrit 38.2 % Mean Corpuscular Volume 74.6 fL Mean Corpuscular Hemoglobin 20.1 pg Mean Corpuscular Hemoglobin Concent 27.0 g/dl RDW Standard Deviation 52.6 fL RDW Coefficient of Variation 19.5 % Platelet Count 209 K/uL Mean Platelet Volume 9.6 fL Sodium Level 142 mmol/L Potassium Level 3.8 mmol/L Chloride Level 99 mmol/L Carbon Dioxide Level 41 mmol/L Anion Gap 2.0 mmol/L Blood Urea Nitrogen 17 mg/dl Creatinine 0.96 mg/dl Est Creatinine Clear Calc Drug Dose 79.1 ml/min Estimated GFR () 88.6 Estimated GFR (Non- 76.5 BUN/Creatinine Ratio 17.4 Random Glucose 173 mg/dl Calcium Level 8.7 mg/dl Test 09/06/17 16:22 Bedside Glucose 166 mg/dl Assessment & Plan SEVERE SEPSIS: from BACTEREMIA -cultures grew MDR E.COLI from blood cultures X 2 sets -met criteria for severe sepsis on admission with fever/ leukocytosis/ tachycardia/tachypnea/hypotension/acute renal failure/confusion -initially treated with empiric broad-spectrum antibiotic with IV vancomycin/ Zosyn -recent history of Pseudomonas and enterococcus urinary tract infection -was unable to provide a clean catch urine on admission, and nursing unable to to put a Rodriguez catheter or straight cath by nursing due to history of BPH -Urology consulted and rodriguez placed by attending -Urine culture catheterized sample no growth/patient was already been on IV antibiotic treatment -remains afebrile, BP improved, no leukocytosis -08/27/17; 2 sets blood culture; gram-negative bacilli-->E. coli: Multidrug- resistant: Resistant to quinolone/ampicillin; Sensitive to Rocephin/Invanz/ imipenem -ID consulted, IV vancomycin/IV Zosyn discontinued; changed to IV Rocephin 2 g daily -Repeat blood culture on 08-29-17: Grew E coli with same sensitivities -3rd set Blood cultures: no growth -repeat urine culture negative -PICC Line placed; -per ID: patient should be treated with ceftriaxone 2 gm daily. Recommend 7 days of IV antibiotics with transition to oral if remains afebrile following that HYPOXEMIA/ACUTE ON CHRONIC RESPIRATORY FAILURE: -likely multifactorial from decompensated CHF with diastolic dysfunction/CO2 retention from OHS and GILLES with poor outpatient compliance -has been on Bipap during the day, encouraged patient to wear it overnight, his even brought his bipap and mask from home for patient's comfort -continue on Neb tx -Pulmonary consulted, appreciate recs -No role for steroids at this time -diuresis as tolerated CONFUSION/METABOLIC ENCEPHALOPATHY: -possibly due to severe sepsis/acute renal failure, but also noted to have CO2 trending upward which could be contributing -on treatment of infection/correction of hypoxemia/resolution of renal, Bipap as tolerated and qHS -remains high fall risk, ordered bed alarm, low boy bed -still requiring 1:1 observation due to increased agitation/worsening of confusion/sundowning and removal of bipap or oxygen -improving; as CO2 is trending down patient seems more alert and oriented but not yet at baseline ACUTE ON CHRONIC DIASTOLIC CONGESTIVE HEART FAILURE EXACERBATION: -Lasix and Zaroxolyn were on hold initially in setting of severe sepsis/risk of intravascular volume depletion -TTE from July 2017, normal EF and valvular function. -Cardiology eval appreciated -CXR demonstrated b/l pleural effusions and worsening congestive changes, thus increased lasix from PO to IV at 60mg BID; but held and changed back to PO due to poor intake -monitor daily weights and I's and O's closely -lasix resumed PO ARRHYTHMIA: PAC/PVC -Cardiology was consulted, appreciate input -No evidence of A. fib noted -noted to have frequent PAC/PVC possible secondary to sepsis/acute renal failure -No cardiac intervention indicated -Cardiology recommended correction of the underlying cause DM TYPE II: -continue Lantus + correction scale insulin -Pharmacy consulted for glycemic management, appreciate assistance OBSTRUCTIVE SLEEP APNEA: -continue BiPAP at night -known non-compliance at home, patient also struggles with compliance in the hospital HTN: -stable, occasionally on lower side of normal -Lasix resumed -continued on Lopressor with holding parameters RENEA ON CKD STAGE III: resolved -had RENEA due to severe sepsis/infection-intravascular volume depletion -renal function at approximate baseline -resumed Lasix BID PO BPH: -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 Qureshi, and recommended patient to continue to keep Rodriguez catheter upon discharge -also has outpatient follow-up with Dr. Hameed and will need outpatient cystoscopy to evaluate for urethral stricture SACRAL DECUBITUS ULCER: STAGE I/II -was present on admission -Wound care consulted, appreciate recs Current Inpatient Medications: Current Inpatient Medications Medications (Trade) Dose Ordered Sig/Bj Route Start Time Stop Time Status Last Admin Dose Admin Heparin Sodium (Porcine) (Heparin Sq 5000 Unit/0.5ml) 5,000 unit Q8 SQ 08/27/17 22:00 09/26/17 21:59 09/06/17 13:13 5,000 UNIT Acetaminophen (Tylenol Tab) 650 mg Q4H PRN PO 08/27/17 20:30 09/26/17 20:29 08/31/17 03:51 650 MG Al Hydrox/Mg Hydrox/Simethicone (Maalox Max Susp) 15 ml Q4H PRN PO 08/27/17 20:30 09/26/17 20:29 Ondansetron HCl (Zofran Inj) 4 mg Q6H PRN IV 08/27/17 20:30 09/26/17 20:29 Nitroglycerin (Nitrostat Tab) 0.4 mg UD PRN SL 08/27/17 20:30 09/26/17 20:29 Polyethylene (Miralax Powder Packet) 17 gm DAILY PRN PO 08/27/17 20:30 09/26/17 20:29 Ascorbic Acid (Vitamin C Tab) 500 mg DAILY PO 08/28/17 09:00 09/27/17 08:59 09/06/17 08:27 500 MG Aspirin (Ecotrin Tab) 81 mg DAILY PO 08/28/17 09:00 09/27/17 08:59 09/06/17 08:24 81 MG Finasteride (Proscar Tab) 5 mg QAM PO 08/28/17 09:00 09/27/17 08:59 09/06/17 08:23 5 MG Folic Acid (Folvite Tab) 1 mg DAILY PO 08/28/17 09:00 09/27/17 08:59 09/06/17 08:26 1 MG Gabapentin (Neurontin Cap) 300 mg BID PO 08/27/17 21:00 09/26/17 20:59 Future Hold 09/02/17 09:11 300 MG Magnesium Oxide (Mag-Ox Tab) 400 mg DAILY PO 08/28/17 09:00 09/27/17 08:59 09/06/17 08:26 400 MG Metoprolol Tartrate (Lopressor Tab) 12.5 mg BID PO 08/27/17 21:00 09/26/17 20:59 09/06/17 08:25 12.5 MG Multivitamins (Multivitamin Tab) 1 tab DAILY PO 08/28/17 09:00 09/27/17 08:59 09/06/17 08:22 1 TAB Nystatin/ Triamcinolone Acetonide (Mycogen II Crm) 1 appln BID EXT 4/17/18 21:00 09/26/17 20:59 09/06/17 08:21 1 APPLN Potassium Chloride (Klor-Con Tab) 20 meq BID PO 08/27/17 21:00 09/26/17 20:59 Future hold 09/06/17 08:26 20 MEQ Simvastatin (Zocor Tab) 40 mg QPM PO 08/27/17 21:00 09/26/17 20:59 09/05/17 21:39 40 MG Tamsulosin HCl (Flomax Cap) 0.4 mg HS PO 08/27/17 21:00 09/26/17 20:59 09/05/17 21:39 0.4 MG Venlafaxine HCl (effeXOR TAB) 75 mg BID PO 08/27/17 21:00 09/26/17 20:59 09/06/17 08:23 75 MG Calcium/Vitamin D (Caltrate Plus Tab) 1 tab DAILY PO 08/28/17 09:00 09/27/17 08:59 09/03/17 18:21 1 TAB Insulin Aspart (novoLOG ASPART) SLIDING SCALE G... ACHS SC 08/27/17 21:00 09/26/17 20:59 09/06/17 13:13 10 UNITS Ipratropium [place] (Atrovent 0.02% 0.5MG/2.5ML Neb) 0.5 mg Q4 PRN INH 08/28/17 08:30 09/27/17 08:29 Levalbuterol (Xopenex 1.25MG/ 0.5ML Neb) 1.25 mg Q4 PRN INH 08/28/17 08:30 09/27/17 08:29 Miscellaneous Information (Consult Glycemic Management Pharmacy) 1 ea UD PRN N/A 08/28/17 14:27 09/27/17 14:26 Miconazole Nitrate (Desenex Powder) 1 appln BID EXT 08/29/17 21:00 09/28/17 20:59 09/06/17 08:21 1 APPLN Miconazole Nitrate (Desenex Powder) 1 appln PRN PRN EXT 08/29/17 15:30 09/28/17 15:29 09/04/17 21:15 1 APPLN Ceftriaxone Sodium 2000 mg/ Dextrose 70 ml @ 100 mls/hr Q24H IV 08/31/17 20:00 09/14/17 19:59 09/05/17 19:43 100 MLS/HR Albuterol/ Ipratropium (Duoneb) 3 ml Q2H PRN INH 09/02/17 00:15 10/02/17 00:14 Heparin Sodium (Porcine) (Heparin 10 Unit/ ml 5 ml Flush) 5 ml PRN PRN FLUSH 09/02/17 17:45 10/02/17 17:44 09/06/17 11:52 5 ML Ipratropium [place] (Atrovent 0.02% 0.5MG/2.5ML Neb) 0.5 mg Q6R INH 09/03/17 03:00 10/03/17 02:59 09/06/17 14:18 0.5 MG Levalbuterol (Xopenex 1.25MG/ 0.5ML Neb) 1.25 mg Q6R INH 09/03/17 03:00 10/03/17 02:59 09/06/17 14:18 1.25 MG Haloperidol Lactate (Haldol Inj) 2 mg Q2H PRN IM 09/04/17 06:30 10/04/17 06:29 Haloperidol (Haldol Tab) 2 mg Q4H PRN PO 09/04/17 06:45 10/04/17 06:29 Furosemide (Lasix Tab) 40 mg BID17 PO 09/05/17 10:00 10/05/17 09:59 09/06/17 17:04 40 MG Insulin Glargine (Lantus Solostar Pen) SEE PROTOCOL HS SQ 09/05/17 21:00 10/05/17 20:59 09/05/17 21:46 13 UNITS Pantoprazole Sodium (Protonix Tab) 40 mg QAM PO 09/06/17 09:00 10/06/17 08:59 09/06/17 08:22 40 MG
[2017-09-06] MEDS: CEFTRIAXONE SOD INJ 2,000 MG in DEXTROSE 5% 50ML 50 ML IV SCH (20:11)
[2017-09-06] MEDS: TAMSULOSIN HCL 0.4 MG CAP PO SCH (20:14)
[2017-09-06] MEDS: SIMVASTATIN 40 MG TAB PO SCH (20:16)
[2017-09-06] MEDS: INSULIN GLARGINE SOLOSTAR 100 UNITS/ML 3 ML PEN SQ SCH (20:19)
[2017-09-07] VITALS (13 sets, daily range): BP systolic 112–144; BP diastolic 67–77; PULSE 63–88; TEMP 36.6–37; O2SAT 93–100
[2017-09-07] MEDS: LEVALBUTEROL 1.25MG/0.5ML NEB INH SCH ×4 (01:45→19:32)
[2017-09-07] MEDS: IPRATROPIUM BROMIDE NEB SOLN 0.02% 2.5 ML VIAL INH SCH ×4 (01:45→19:32)
[2017-09-07 05:55] LABS: HEMATOCRIT 34.3 % (42-52); HEMOGLOBIN 9.4 g/dL (14.0-18.0); MEAN CELL VOLUME 72.8 fL (80-100); MEAN CORPUSCULAR HGB CONC 27.4 g/dl (32-36); MEAN PLATELET VOLUME 9.4 fL (7.4-10.4); PLATELET COUNT 212 K/uL (130-400); RED CELL DISTRIBUTION WIDTH CV 19.4 % (11.5-14.5); RED CELL DISTRIBUTION WIDTH SD 50.8 fL (36.4-46.3); WHITE BLOOD COUNT 8.01 K/uL (4.8-10.8)
[2017-09-07] MEDS: HEPARIN SOD 5000 UNIT/0.5 ML CARP SQ SCH ×3 (06:12→20:55)
[2017-09-07] MEDS: CEFTRIAXONE SOD INJ 2,000 MG in DEXTROSE 5% 50ML 50 ML IV SCH (06:30)
[2017-09-07] MEDS: INSULIN ASPART 100 UNITS/ML 3 ML PEN SC SCH ×4 (06:30→20:55)
[2017-09-07] MEDS: NYSTATIN/TRIAMCINOLONE CR 15 GM TUBE EXT SCH ×2 (08:50→21:03)
[2017-09-07] MEDS: MICONAZOLE NITRATE POWDER 43 GM EXT SCH ×2 (08:50→21:00)
[2017-09-07] MEDS: PANTOprazole SOD 40 MG TAB PO SCH (08:51)
[2017-09-07] MEDS: CALCIUM 600MG + VIT D 400 IU TAB PO SCH (08:51)
[2017-09-07] MEDS: FUROSEMIDE 40 MG TAB PO SCH ×2 (08:51→17:16)
[2017-09-07] MEDS: MULTIVITAMIN TAB PO SCH (08:51)
[2017-09-07] MEDS: FINASTERIDE 5 MG TAB PO SCH (08:51)
[2017-09-07] MEDS: METOPROLOL TARTRATE 25 MG TAB PO SCH ×2 (08:51→21:00)
[2017-09-07] MEDS: ASCORBIC ACID 500 MG TAB PO SCH (08:52)
[2017-09-07] MEDS: POTASSIUM CHLORIDE 20 MEQ TABCR PO SCH ×2 (08:52→20:59)
[2017-09-07] MEDS: VENLAFAXINE HCL 37.5 MG TAB PO SCH ×2 (08:52→20:58)
[2017-09-07] MEDS: ASPIRIN 81 MG ECTAB PO SCH (08:52)
[2017-09-07] MEDS: MAGNESIUM OXIDE 400 MG TAB PO SCH (08:52)
[2017-09-07 09:05] LABS: CALCIUM 8.5 mg/dl (8.5-10.1); CREATININE 0.99 mg/dl (0.60-1.40); POTASSIUM 3.8 mmol/L (3.5-5.1)
--- NOTE | 2017-09-07 17:43 | Progress Note ---
Medicine Progress Note Date & Time of Visit: Sep 07, 2017 at 17:43. Subjective Patient doing ok, seems more somnolent today. Family was at the bedside from out of town and updated. Patient was non-compliant with bipap last night but agrees to wear it today. No overnight events noted otherwise. Tolerating PO but appetite has been less today. Patient denies any complaints. Objective Last 8 Hrs Date Time Temp Pulse Resp B/P (MAP) Pulse Ox O2 Delivery O2 Flow Rate FiO2 09/07/17 15:44 94 BiPAP 4.0 09/07/17 15:31 80 20 96 BiPAP/CPAP 4.0 09/07/17 15:00 36.7 83 24 124/67 (86) 09/07/17 12:05 94 Nasal Cannula 4.0 09/07/17 10:55 36.6 83 24 133/72 (92) 98 Nasal Cannula 4.0 Physical Exam: GENERAL: Patient is in no acute distress. HEENT: No acute trauma, normocephalic, mucous membranes moist, no nasal congestion, no scleral icterus. NECK: No stridor, trachea is midline. LUNGS: Few expiratory wheezes, no rhonchi, breath sounds equal. Diminished bases HEART: Without murmurs gallops or rubs, regular rate and rhythm. ABDOMEN: Soft, nontender, bowel sounds positive EXTREMITIES: No cyanosis; + dependent edema, full range of motion of all the joints without pain or difficulty, no signs for acute trauma. NEUROLOGIC: Drowsy but awake and oriented, no apparent acute motor or sensory deficits, no focal weakness. SKIN: No rash, no jaundice, no diaphoresis. Laboratory Results: Last 24 Hours Test 09/06/17 20:16 09/07/17 05:27 09/07/17 07:40 09/07/17 08:10 Bedside Glucose 161 mg/dl 122 mg/dl White Blood Count 8.01 K/uL Red Blood Count 4.71 M/uL Hemoglobin 9.4 g/dL Hematocrit 34.3 % Mean Corpuscular Volume 72.8 fL Mean Corpuscular Hemoglobin 20.0 pg Mean Corpuscular Hemoglobin Concent 27.4 g/dl RDW Standard Deviation 50.8 fL RDW Coefficient of Variation 19.4 % Platelet Count 212 K/uL Mean Platelet Volume 9.4 fL Sodium Level 141 mmol/L Potassium Level 3.8 mmol/L Chloride Level 100 mmol/L Carbon Dioxide Level 40 mmol/L Anion Gap 2.0 mmol/L Blood Urea Nitrogen 16 mg/dl Creatinine 0.99 mg/dl Est Creatinine Clear Calc Drug Dose 78.8 ml/min Estimated GFR () 85.4 Estimated GFR (Non- 73.7 BUN/Creatinine Ratio 15.9 Random Glucose 117 mg/dl Calcium Level 8.5 mg/dl Test 09/07/17 11:37 09/07/17 16:36 Bedside Glucose 187 mg/dl 151 mg/dl Assessment & Plan SEVERE SEPSIS: from BACTEREMIA -cultures grew MDR E.COLI from blood cultures X 2 sets -met criteria for severe sepsis on admission with fever/ leukocytosis/ tachycardia/tachypnea/hypotension/acute renal failure/confusion -initially treated with empiric broad-spectrum antibiotic with IV vancomycin/ Zosyn -recent history of Pseudomonas and enterococcus urinary tract infection -was unable to provide a clean catch urine on admission, and nursing unable to to put a Rodriguez catheter or straight cath by nursing due to history of BPH -Urology consulted and rodriguez placed by attending -Urine culture catheterized sample no growth/patient was already been on IV antibiotic treatment -remains afebrile, BP improved, no leukocytosis -08/27/17; 2 sets blood culture; gram-negative bacilli-->E. coli: Multidrug- resistant: Resistant to quinolone/ampicillin; Sensitive to Rocephin/Invanz/ imipenem -ID consulted, IV vancomycin/IV Zosyn discontinued; changed to IV Rocephin 2 g daily -Repeat blood culture on 08-29-17: Grew E coli with same sensitivities -3rd set Blood cultures: no growth -repeat urine culture negative -PICC Line placed; -per ID: patient should be treated with ceftriaxone 2 gm daily. Recommend 7 days of IV antibiotics with transition to oral if remains afebrile following that HYPOXEMIA/ACUTE ON CHRONIC RESPIRATORY FAILURE: -likely multifactorial from decompensated CHF with diastolic dysfunction/CO2 retention from OHS and GILLES with poor outpatient compliance -has been on Bipap during the day, encouraged patient to wear it overnight, his even brought his bipap and mask from home for patient's comfort -continue on Neb tx -Pulmonary consulted, appreciate recs -No role for steroids at this time -diuresis as tolerated -as discussed with family, they would like to consider Palliative care involvement and are aware of the cycle that the patient keeps repeating and with repeated admissions to the hospital with more difficult recovery each time , they are concerned and would want the focus to be more upon comfort but want to discuss it again with the patient and Palliative care. CONFUSION/METABOLIC ENCEPHALOPATHY: -possibly due to severe sepsis/acute renal failure, but also noted to have CO2 trending upward which could be contributing -on treatment of infection/correction of hypoxemia/resolution of renal, Bipap as tolerated and qHS -remains high fall risk, ordered bed alarm, low boy bed -still requiring 1:1 observation due to increased agitation/worsening of confusion/sundowning and removal of bipap or oxygen -improving; as CO2 is trending down patient seems more alert and oriented but not yet at baseline ACUTE ON CHRONIC DIASTOLIC CONGESTIVE HEART FAILURE EXACERBATION: -Lasix and Zaroxolyn were on hold initially in setting of severe sepsis/risk of intravascular volume depletion -TTE from July 2017, normal EF and valvular function. -Cardiology eval appreciated -CXR demonstrated b/l pleural effusions and worsening congestive changes, thus increased lasix from PO to IV at 60mg BID; but held and changed back to PO due to poor intake -monitor daily weights and I's and O's closely -lasix resumed PO ARRHYTHMIA: PAC/PVC -Cardiology was consulted, appreciate input -No evidence of A. fib noted -noted to have frequent PAC/PVC possible secondary to sepsis/acute renal failure -No cardiac intervention indicated -Cardiology recommended correction of the underlying cause DM TYPE II: -continue Lantus + correction scale insulin -Pharmacy consulted for glycemic management, appreciate assistance OBSTRUCTIVE SLEEP APNEA: -continue BiPAP at night -known non-compliance at home, patient also struggles with compliance in the hospital HTN: -stable, occasionally on lower side of normal -Lasix resumed -continued on Lopressor with holding parameters RENEA ON CKD STAGE III: resolved -had RENEA due to severe sepsis/infection-intravascular volume depletion -renal function at approximate baseline -resumed Lasix BID PO BPH: -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 Qureshi, and recommended patient to continue to keep Rodriguez catheter upon discharge -also has outpatient follow-up with Dr. Hameed and will need outpatient cystoscopy to evaluate for urethral stricture SACRAL DECUBITUS ULCER: STAGE I/II -was present on admission -Wound care consulted, gerald recs Current Inpatient Medications: Current Inpatient Medications Medications (Trade) Dose Ordered Sig/Bj Route Start Time Stop Time Status Last Admin Dose Admin Heparin Sodium (Porcine) (Heparin Sq 5000 Unit/0.5ml) 5,000 unit Q8 SQ 08/27/17 22:00 09/26/17 21:59 09/07/17 06:12 5,000 UNIT Acetaminophen (Tylenol Tab) 650 mg Q4H PRN PO 08/27/17 20:30 09/26/17 20:29 08/31/17 03:51 650 MG Al Hydrox/Mg Hydrox/Simethicone (Maalox Max Susp) 15 ml Q4H PRN PO 08/27/17 20:30 09/26/17 20:29 Ondansetron HCl (Zofran Inj) 4 mg Q6H PRN IV 08/27/17 20:30 09/26/17 20:29 Nitroglycerin (Nitrostat Tab) 0.4 mg UD PRN SL 08/27/17 20:30 09/26/17 20:29 Polyethylene (Miralax Powder Packet) 17 gm DAILY PRN PO 08/27/17 20:30 09/26/17 20:29 Ascorbic Acid (Vitamin C Tab) 500 mg DAILY PO 08/28/17 09:00 09/27/17 08:59 09/07/17 08:52 500 MG Aspirin (Ecotrin Tab) 81 mg DAILY PO 08/28/17 09:00 09/27/17 08:59 09/07/17 08:52 81 MG Finasteride (Proscar Tab) 5 mg QAM PO 08/28/17 09:00 09/27/17 08:59 09/07/17 08:51 5 MG Folic Acid (Folvite Tab) 1 mg DAILY PO 08/28/17 09:00 09/27/17 08:59 09/07/17 08:51 1 MG Gabapentin (Neurontin Cap) 300 mg BID PO 08/27/17 21:00 09/26/17 20:59 Future Hold 09/02/17 09:11 300 MG Magnesium Oxide (Mag-Ox Tab) 400 mg DAILY PO 08/28/17 09:00 09/27/17 08:59 09/07/17 08:52 400 MG Metoprolol Tartrate (Lopressor Tab) 12.5 mg BID PO 08/27/17 21:00 09/26/17 20:59 09/07/17 08:51 12.5 MG Multivitamins (Multivitamin Tab) 1 tab DAILY PO 08/28/17 09:00 09/27/17 08:59 09/07/17 08:51 1 TAB Nystatin/ Triamcinolone Acetonide (Mycogen II Crm) 1 appln BID EXT 08/27/17 21:00 09/26/17 20:59 09/07/17 08:50 1 APPLN Potassium Chloride (Klor-Con Tab) 20 meq BID PO 08/27/17 21:00 09/26/17 20:59 Future hold 09/07/17 08:52 20 MEQ Simvastatin (Zocor Tab) 40 mg QPM PO 08/27/17 21:00 09/26/17 20:59 09/06/17 20:16 40 MG Tamsulosin HCl (Flomax Cap) 0.4 mg HS PO 08/27/17 21:00 09/26/17 20:59 09/06/17 20:14 0.4 MG Venlafaxine HCl (effeXOR TAB) 75 mg BID PO 08/27/17 21:00 09/26/17 20:59 09/07/17 08:52 75 MG Calcium/Vitamin D (Caltrate Plus Tab) 1 tab DAILY PO 08/28/17 09:00 09/27/17 08:59 09/07/17 08:51 1 TAB Insulin Aspart (novoLOG ASPART) SLIDING SCALE G... ACHS SC 08/27/17 21:00 09/26/17 20:59 09/06/17 20:18 2 UNITS Ipratropium [place] (Atrovent 0.02% 0.5MG/2.5ML Neb) 0.5 mg Q4 PRN INH 08/28/17 08:30 09/27/17 08:29 Levalbuterol (Xopenex 1.25MG/ 0.5ML Neb) 1.25 mg Q4 PRN INH 08/28/17 08:30 09/27/17 08:29 Miscellaneous Information (Consult Glycemic Management Pharmacy) 1 ea UD PRN N/A 08/28/17 14:27 09/27/17 14:26 Miconazole Nitrate (Desenex Powder) 1 appln BID EXT 08/29/17 21:00 09/28/17 20:59 09/07/17 08:50 1 APPLN Miconazole Nitrate (Desenex Powder) 1 appln PRN PRN EXT 08/29/17 15:30 09/28/17 15:29 09/04/17 21:15 1 APPLN Albuterol/ Ipratropium (Duoneb) 3 ml Q2H PRN INH 09/02/17 00:15 10/02/17 00:14 Heparin Sodium (Porcine) (Heparin 10 Unit/ ml 5 ml Flush) 5 ml PRN PRN FLUSH 09/02/17 17:45 10/02/17 17:44 09/06/17 11:52 5 ML Ipratropium [place] (Atrovent 0.02% 0.5MG/2.5ML Neb) 0.5 mg Q6R INH 09/03/17 03:00 10/03/17 02:59 09/07/17 15:00 0.5 MG Levalbuterol (Xopenex 1.25MG/ 0.5ML Neb) 1.25 mg Q6R INH 09/03/17 03:00 10/03/17 02:59 09/07/17 15:00 1.25 MG Haloperidol Lactate (Haldol Inj) 2 mg Q2H PRN IM 09/04/17 06:30 10/04/17 06:29 Haloperidol (Haldol Tab) 2 mg Q4H PRN PO 09/04/17 06:45 10/04/17 06:29 Furosemide (Lasix Tab) 40 mg BID17 PO 09/05/17 10:00 10/05/17 09:59 09/07/17 17:16 40 MG Insulin Glargine (Lantus Solostar Pen) SEE PROTOCOL HS SQ 09/05/17 21:00 10/05/17 20:59 09/06/17 20:19 18 UNITS Pantoprazole Sodium (Protonix Tab) 40 mg QAM PO 09/06/17 09:00 10/06/17 08:59 09/07/17 08:51 40 MG Ceftriaxone Sodium 2000 mg/ Dextrose 70 ml @ 100 mls/hr Q24H IV 4/29/18 06:00 09/15/17 05:59
[2017-09-07] MEDS: INSULIN GLARGINE SOLOSTAR 100 UNITS/ML 3 ML PEN SQ SCH (20:54)
[2017-09-07] MEDS: SIMVASTATIN 40 MG TAB PO SCH (20:57)
[2017-09-07] MEDS: TAMSULOSIN HCL 0.4 MG CAP PO SCH (20:58)
[2017-09-08] VITALS (15 sets, daily range): BP systolic 105–161; BP diastolic 60–95; PULSE 74–88; TEMP 36.3–37.1; O2SAT 91–100
[2017-09-08] MEDS: IPRATROPIUM BROMIDE NEB SOLN 0.02% 2.5 ML VIAL INH SCH ×4 (02:08→19:28)
[2017-09-08] MEDS: LEVALBUTEROL 1.25MG/0.5ML NEB INH SCH ×4 (02:08→19:28)
[2017-09-08 05:52] LABS: MEAN CELL VOLUME 73.2 fL (80-100); MEAN CORPUSCULAR HGB CONC 27.3 g/dl (32-36); MEAN PLATELET VOLUME 9.7 fL (7.4-10.4); PLATELET COUNT 222 K/uL (130-400); RED CELL DISTRIBUTION WIDTH CV 19.4 % (11.5-14.5); RED CELL DISTRIBUTION WIDTH SD 51.6 fL (36.4-46.3); WHITE BLOOD COUNT 7.12 K/uL (4.8-10.8)
[2017-09-08 06:06] LABS: CALCIUM 8.2 mg/dl (8.5-10.1); CREATININE 0.84 mg/dl (0.60-1.40); POTASSIUM 3.9 mmol/L (3.5-5.1)
[2017-09-08] MEDS: CEFTRIAXONE SOD INJ 2,000 MG in DEXTROSE 5% 50ML 50 ML IV SCH (06:22)
[2017-09-08] MEDS: HEPARIN SOD 5000 UNIT/0.5 ML CARP SQ SCH ×3 (06:24→21:03)
[2017-09-08] MEDS: INSULIN ASPART 100 UNITS/ML 3 ML PEN SC SCH ×4 (06:30→21:02)
[2017-09-08] MEDS: FINASTERIDE 5 MG TAB PO SCH (08:45)
[2017-09-08] MEDS: MAGNESIUM OXIDE 400 MG TAB PO SCH (08:45)
[2017-09-08] MEDS: FUROSEMIDE 40 MG TAB PO SCH ×2 (08:46→17:56)
[2017-09-08] MEDS: METOPROLOL TARTRATE 25 MG TAB PO SCH ×2 (08:46→20:53)
[2017-09-08] MEDS: MULTIVITAMIN TAB PO SCH (08:46)
[2017-09-08] MEDS: PANTOprazole SOD 40 MG TAB PO SCH (08:46)
[2017-09-08] MEDS: VENLAFAXINE HCL 37.5 MG TAB PO SCH ×2 (08:47→20:51)
[2017-09-08] MEDS: ASCORBIC ACID 500 MG TAB PO SCH (08:47)
[2017-09-08] MEDS: POTASSIUM CHLORIDE 20 MEQ TABCR PO SCH ×2 (08:47→20:52)
[2017-09-08] MEDS: CALCIUM 600MG + VIT D 400 IU TAB PO SCH (08:49)
[2017-09-08] MEDS: NYSTATIN/TRIAMCINOLONE CR 15 GM TUBE EXT SCH ×2 (08:50→22:21)
[2017-09-08] MEDS: MICONAZOLE NITRATE POWDER 43 GM EXT SCH ×2 (08:50→20:58)
[2017-09-08] MEDS: ASPIRIN 81 MG ECTAB PO SCH (08:50)
[2017-09-08] MEDS: ACETAMINOPHEN 325 MG TAB PO PRN (09:04)
--- NOTE | 2017-09-08 15:04 | Pharmacy Progress Note ---
Glycemic: Assessment & Plan Date of Service Sep 08, 2017. Assessment & Plan Assessment * BSG's ranging 105-226 mg/dL over the last 24 hours * AM fasting BSG good at 105 mg/dL after increase in Lantus last night - will continue * All post-prandial BSG's 150-230 mg/dL x2-3 days. OK to tighten CHO ratio slightly. Plan * Lantus qHS based on BSG * 10 units for BSG less than 100 mg/dL * 15 units for BSG 100-140 mg/dL * 20 units for BSG greater than 140 mg/dL * Novolog ACHS * Goal range 110-140 mg/dL * Correction factor: 20 mg/dL/unit * Tighten Carb ratio: 1 unit for every 6 g CHO consumed Pharmacy will continue to monitor patient daily and write orders per [facility] inpatient glycemic control protocol. Thanks. * Please note that the plan above was derived based on current level of insulin resistance and hospital stress. These recommendations are appropriate for inpatient admission only. Plan of care upon discharge will need to be reassessed to avoid potential outpatient hypo/hyperglycemia.
[2017-09-08] MEDS ORDERED: DEXTROSE 50% 50 ML SYR ONE (16:30)
[2017-09-08] MEDS ORDERED: GLUCOSE 10 TABS/TUBE PO PRN (16:45)
[2017-09-08] MEDS ORDERED: DEXTROSE 50% 50 ML SYR IV PRN (16:45)
[2017-09-08] MEDS ORDERED: GLUCOSE 40% GEL 15 GM TUBE PO PRN (16:45)
[2017-09-08] MEDS ORDERED: GLUCAGON FOR INJ 1 MG VIAL SQ PRN (16:45)
--- NOTE | 2017-09-08 18:55 | Progress Note ---
Medicine Progress Note Date & Time of Visit: Sep 08, 2017 at 18:55. Subjective Patient doing well, has been wearing bipap much of the day as he did not wear it overnight. His family was able to purchase a different mask for him to use which has made the bipap more tolerable. Has had some confusion overnight. Does not sleep well at night but this AM is drowsy, however he awakens easily and participates in conversation. No other events noted. Tolerating PO. Appetite improving. Objective Last 8 Hrs Date Time Temp Pulse Resp B/P (MAP) Pulse Ox O2 Delivery O2 Flow Rate FiO2 09/08/17 16:03 94 BiPAP 4.0 09/08/17 14:57 81 20 93 BiPAP/CPAP 4.0 09/08/17 14:44 36.3 78 20 105/69 (81) 91 Nasal Cannula 4.0 09/08/17 12:05 94 BiPAP 4.0 09/08/17 11:20 84 95 09/08/17 11:11 36.5 83 20 105/69 (81) 97 Nasal Cannula 4.0 Physical Exam: GENERAL: Patient is in no acute distress. HEENT: No acute trauma, normocephalic, mucous membranes moist, no nasal congestion, no scleral icterus. NECK: No stridor, trachea is midline. LUNGS: Rare expiratory wheezes, no rhonchi, breath sounds equal. Diminished bases HEART: Without murmurs gallops or rubs, regular rate and rhythm. ABDOMEN: Soft, nontender, bowel sounds positive EXTREMITIES: No cyanosis; + dependent edema, full range of motion of all the joints without pain or difficulty, no signs for acute trauma. NEUROLOGIC: Drowsy but awake and oriented, no apparent acute motor or sensory deficits, no focal weakness. SKIN: No rash, no jaundice, no diaphoresis. Laboratory Results: Last 24 Hours Test 09/07/17 20:23 09/08/17 05:25 09/08/17 07:26 09/08/17 11:52 Bedside Glucose 198 mg/dl 101 mg/dl 226 mg/dl White Blood Count 7.12 K/uL Red Blood Count 4.51 M/uL Hemoglobin 9.0 g/dL Hematocrit 33.0 % Mean Corpuscular Volume 73.2 fL Mean Corpuscular Hemoglobin 20.0 pg Mean Corpuscular Hemoglobin Concent 27.3 g/dl RDW Standard Deviation 51.6 fL RDW Coefficient of Variation 19.4 % Platelet Count 222 K/uL Mean Platelet Volume 9.7 fL Sodium Level 143 mmol/L Potassium Level 3.9 mmol/L Chloride Level 103 mmol/L Carbon Dioxide Level 40 mmol/L Anion Gap 0.0 mmol/L Blood Urea Nitrogen 16 mg/dl Creatinine 0.84 mg/dl Est Creatinine Clear Calc Drug Dose 92.9 ml/min Estimated GFR () 98.6 Estimated GFR (Non- 85.1 BUN/Creatinine Ratio 19.6 Random Glucose 113 mg/dl Calcium Level 8.2 mg/dl Test 09/08/17 16:11 09/08/17 16:27 09/08/17 16:53 Bedside Glucose 55 mg/dl 46 mg/dl 133 mg/dl Assessment & Plan SEVERE SEPSIS: from BACTEREMIA -cultures grew MDR E.COLI from blood cultures X 2 sets -met criteria for severe sepsis on admission with fever/ leukocytosis/ tachycardia/tachypnea/hypotension/acute renal failure/confusion -initially treated with empiric broad-spectrum antibiotic with IV vancomycin/ Zosyn -recent history of Pseudomonas and enterococcus urinary tract infection -was unable to provide a clean catch urine on admission, and nursing unable to to put a Rodriguez catheter or straight cath by nursing due to history of BPH -Urology consulted and rodriguez placed by attending -Urine culture catheterized sample no growth/patient was already been on IV antibiotic treatment -remains afebrile, BP improved, no leukocytosis -08/27/17; 2 sets blood culture; gram-negative bacilli-->E. coli: Multidrug- resistant: Resistant to quinolone/ampicillin; Sensitive to Rocephin/Invanz/ imipenem -ID consulted, IV vancomycin/IV Zosyn discontinued; changed to IV Rocephin 2 g daily -Repeat blood culture on 08-29-17: Grew E coli with same sensitivities -3rd set Blood cultures: no growth -repeat urine culture negative -PICC Line placed; -per ID: patient should be treated with ceftriaxone 2 gm daily. Recommend 7 days of IV antibiotics with transition to oral if remains afebrile following that HYPOXEMIA/ACUTE ON CHRONIC RESPIRATORY FAILURE: -likely multifactorial from decompensated CHF with diastolic dysfunction/CO2 retention from OHS and GILLES with poor outpatient compliance -has been on Bipap during the day, encouraged patient to wear it overnight, his even brought his bipap and mask from home for patient's comfort -continue on Neb tx -Pulmonary consulted, appreciate recs -No role for steroids at this time -diuresis as tolerated -as discussed with family, they would like to consider Palliative care involvement and are aware of the cycle that the patient keeps repeating and with repeated admissions to the hospital with more difficult recovery each time , they are concerned and would want the focus to be more upon comfort but want to discuss it again with the patient and Palliative care. CONFUSION/METABOLIC ENCEPHALOPATHY: -possibly due to severe sepsis/acute renal failure, but also noted to have CO2 trending upward which could be contributing -on treatment of infection/correction of hypoxemia/resolution of renal, Bipap as tolerated and qHS -remains high fall risk, ordered bed alarm, low boy bed -still requiring 1:1 observation due to increased agitation/worsening of confusion/sundowning and removal of bipap or oxygen -improving; as CO2 is trending down patient seems more alert and oriented but not yet at baseline ACUTE ON CHRONIC DIASTOLIC CONGESTIVE HEART FAILURE EXACERBATION: -Lasix and Zaroxolyn were on hold initially in setting of severe sepsis/risk of intravascular volume depletion -TTE from July 2017, normal EF and valvular function. -Cardiology eval appreciated -CXR demonstrated b/l pleural effusions and worsening congestive changes, thus increased lasix from PO to IV at 60mg BID; but held and changed back to PO due to poor intake -monitor daily weights and I's and O's closely -lasix resumed PO ARRHYTHMIA: PAC/PVC -Cardiology was consulted, appreciate input -No evidence of A. fib noted -noted to have frequent PAC/PVC possible secondary to sepsis/acute renal failure -No cardiac intervention indicated -Cardiology recommended correction of the underlying cause DM TYPE II: -continue Lantus + correction scale insulin -Pharmacy consulted for glycemic management, appreciate assistance OBSTRUCTIVE SLEEP APNEA: -continue BiPAP at night -known non-compliance at home, patient also struggles with compliance in the hospital HTN: -stable, occasionally on lower side of normal -Lasix resumed -continued on Lopressor with holding parameters RENEA ON CKD STAGE III: resolved -had RENEA due to severe sepsis/infection-intravascular volume depletion -renal function at approximate baseline -resumed Lasix BID PO and tolerating this without difficulty BPH: -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 Qureshi, and recommended patient to continue to keep Rodriguez catheter upon discharge -also has outpatient follow-up with Dr. Hameed and will need outpatient cystoscopy to evaluate for urethral stricture SACRAL DECUBITUS ULCER: STAGE I/II -was present on admission -Wound care consulted, appreciate recs Current Inpatient Medications: Current Inpatient Medications Medications (Trade) Dose Ordered Sig/Bj Route Start Time Stop Time Status Last Admin Dose Admin Heparin Sodium (Porcine) (Heparin Sq 5000 Unit/0.5ml) 5,000 unit Q8 SQ 08/27/17 22:00 09/26/17 21:59 09/08/17 12:39 5,000 UNIT Acetaminophen (Tylenol Tab) 650 mg Q4H PRN PO 08/27/17 20:30 09/26/17 20:29 09/08/17 09:04 650 MG Al Hydrox/Mg Hydrox/Simethicone (Maalox Max Susp) 15 ml Q4H PRN PO 08/27/17 20:30 09/26/17 20:29 Ondansetron HCl (Zofran Inj) 4 mg Q6H PRN IV 08/27/17 20:30 09/26/17 20:29 Nitroglycerin (Nitrostat Tab) 0.4 mg UD PRN SL 08/27/17 20:30 09/26/17 20:29 Polyethylene (Miralax Powder Packet) 17 gm DAILY PRN PO 08/27/17 20:30 09/26/17 20:29 Ascorbic Acid (Vitamin C Tab) 500 mg DAILY PO 08/28/17 09:00 09/27/17 08:59 09/08/17 08:47 500 MG Aspirin (Ecotrin Tab) 81 mg DAILY PO 08/28/17 09:00 09/27/17 08:59 09/08/17 08:50 81 MG Finasteride (Proscar Tab) 5 mg QAM PO 08/28/17 09:00 09/27/17 08:59 09/08/17 08:45 5 MG Folic Acid (Folvite Tab) 1 mg DAILY PO 08/28/17 09:00 09/27/17 08:59 09/08/17 08:47 1 MG Gabapentin (Neurontin Cap) 300 mg BID PO 08/27/17 21:00 09/26/17 20:59 Future Hold 09/02/17 09:11 300 MG Magnesium Oxide (Mag-Ox Tab) 400 mg DAILY PO 08/28/17 09:00 09/27/17 08:59 09/08/17 08:45 400 MG Metoprolol Tartrate (Lopressor Tab) 12.5 mg BID PO 08/27/17 21:00 09/26/17 20:59 09/08/17 08:46 12.5 MG Multivitamins (Multivitamin Tab) 1 tab DAILY PO 08/28/17 09:00 09/27/17 08:59 09/08/17 08:46 1 TAB Nystatin/ Triamcinolone Acetonide (Mycogen II Crm) 1 appln BID EXT 08/27/17 21:00 09/26/17 20:59 09/08/17 08:50 1 APPLN Potassium Chloride (Klor-Con Tab) 20 meq BID PO 08/27/17 21:00 09/26/17 20:59 Future hold 09/08/17 08:47 20 MEQ Simvastatin (Zocor Tab) 40 mg QPM PO 08/27/17 21:00 09/26/17 20:59 09/07/17 20:57 40 MG Tamsulosin HCl (Flomax Cap) 0.4 mg HS PO 08/27/17 21:00 09/26/17 20:59 09/07/17 20:58 0.4 MG Venlafaxine HCl (effeXOR TAB) 75 mg BID PO 08/27/17 21:00 09/26/17 20:59 09/08/17 08:47 75 MG Calcium/Vitamin D (Caltrate Plus Tab) 1 tab DAILY PO 08/28/17 09:00 09/27/17 08:59 09/08/17 08:49 1 TAB Insulin Aspart (novoLOG ASPART) SLIDING SCALE G... ACHS SC 08/27/17 21:00 09/26/17 20:59 09/08/17 12:38 14 UNITS Ipratropium [place] (Atrovent 0.02% 0.5MG/2.5ML Neb) 0.5 mg Q4 PRN INH 08/28/17 08:30 09/27/17 08:29 Levalbuterol (Xopenex 1.25MG/ 0.5ML Neb) 1.25 mg Q4 PRN INH 08/28/17 08:30 09/27/17 08:29 Miscellaneous Information (Consult Glycemic Management Pharmacy) 1 ea UD PRN N/A 08/28/17 14:27 09/27/17 14:26 Miconazole Nitrate (Desenex Powder) 1 appln BID EXT 08/29/17 21:00 09/28/17 20:59 09/08/17 08:50 1 APPLN Miconazole Nitrate (Desenex Powder) 1 appln PRN PRN EXT 08/29/17 15:30 09/28/17 15:29 09/04/17 21:15 1 APPLN Albuterol/ Ipratropium (Duoneb) 3 ml Q2H PRN INH 09/02/17 00:15 10/02/17 00:14 Heparin Sodium (Porcine) (Heparin 10 Unit/ ml 5 ml Flush) 5 ml PRN PRN FLUSH 09/02/17 17:45 10/02/17 17:44 09/06/17 11:52 5 ML Ipratropium [place] (Atrovent 0.02% 0.5MG/2.5ML Neb) 0.5 mg Q6R INH 09/03/17 03:00 10/03/17 02:59 09/08/17 14:57 0.5 MG Levalbuterol (Xopenex 1.25MG/ 0.5ML Neb) 1.25 mg Q6R INH 09/03/17 03:00 10/03/17 02:59 09/08/17 14:57 1.25 MG Haloperidol Lactate (Haldol Inj) 2 mg Q2H PRN IM 09/04/17 06:30 10/04/17 06:29 Haloperidol (Haldol Tab) 2 mg Q4H PRN PO 09/04/17 06:45 10/04/17 06:29 Furosemide (Lasix Tab) 40 mg BID17 PO 09/05/17 10:00 10/05/17 09:59 09/08/17 17:56 40 MG Insulin Glargine (Lantus Solostar Pen) SEE PROTOCOL HS SQ 09/05/17 21:00 10/05/17 20:59 09/07/17 20:54 20 UNITS Pantoprazole Sodium (Protonix Tab) 40 mg QAM PO 09/06/17 09:00 10/06/17 08:59 09/08/17 08:46 40 MG Ceftriaxone Sodium 2000 mg/ Dextrose 70 ml @ 100 mls/hr Q24H IV 09/08/17 06:00 09/15/17 05:59 09/08/17 06:22 100 MLS/HR Glucose (Glucose 40% Gel) 15-30 GRAMS 15 GRAMS... UD PRN PO 09/08/17 16:45 10/08/17 16:44 Glucose (Glucose Chew Tab) 4-8 Tablets 4 Tabl... UD PRN PO 09/08/17 16:45 10/08/17 16:44 Dextrose (Dextrose 50% 50ML Syringe) 25-50ML OF 50% DW IV FOR... UD PRN IV 09/08/17 16:45 10/08/17 16:44 Glucagon (Glucagon Inj) 1 mg UD PRN SQ 09/08/17 16:45 10/08/17 16:44
[2017-09-08] MEDS: SIMVASTATIN 40 MG TAB PO SCH (20:52)
[2017-09-08] MEDS: TAMSULOSIN HCL 0.4 MG CAP PO SCH (20:53)
[2017-09-08] MEDS: INSULIN GLARGINE SOLOSTAR 100 UNITS/ML 3 ML PEN SQ SCH (21:03)
[2017-09-08] MEDS ORDERED: PHENAZOPYRIDINE HCL 200 MG TAB PO ONE (22:00)
[2017-09-09] VITALS (10 sets, daily range): BP systolic 112–148; BP diastolic 60–88; PULSE 73–97; TEMP 36.1–37.1; O2SAT 94–99
[2017-09-09] MEDS: ACETAMINOPHEN 325 MG TAB PO PRN (00:45)
[2017-09-09] MEDS ORDERED: COUGH DROP (SUGAR FREE) LOZ 24 LOZ/1 BOX LOZ PRN (01:00)
[2017-09-09] MEDS ORDERED: NURSING DECISION MEDICATION ORDER SCH (01:00)
[2017-09-09] MEDS: IPRATROPIUM BROMIDE NEB SOLN 0.02% 2.5 ML VIAL INH SCH ×4 (02:02→20:04)
[2017-09-09] MEDS: LEVALBUTEROL 1.25MG/0.5ML NEB INH SCH ×4 (02:03→20:04)
[2017-09-09 06:04] LABS: HEMATOCRIT 33.7 % (42-52); HEMOGLOBIN 9.4 g/dL (14.0-18.0); MEAN CELL VOLUME 72.5 fL (80-100); MEAN CORPUSCULAR HEMOGLOBIN 20.2 pg (25-34); MEAN CORPUSCULAR HGB CONC 27.9 g/dl (32-36); MEAN PLATELET VOLUME 9.9 fL (7.4-10.4); PLATELET COUNT 228 K/uL (130-400); RED CELL DISTRIBUTION WIDTH CV 19.3 % (11.5-14.5)
[2017-09-09] MEDS: CEFTRIAXONE SOD INJ 2,000 MG in DEXTROSE 5% 50ML 50 ML IV SCH (06:04)
[2017-09-09] MEDS: HEPARIN SOD 5000 UNIT/0.5 ML CARP SQ SCH ×3 (06:04→21:22)
[2017-09-09 06:13] LABS: CALCIUM 8.1 mg/dl (8.5-10.1); CREATININE 0.87 mg/dl (0.60-1.40); POTASSIUM 4.1 mmol/L (3.5-5.1)
[2017-09-09] MEDS: FUROSEMIDE 40 MG TAB PO SCH ×2 (08:10→17:08)
[2017-09-09] MEDS: FINASTERIDE 5 MG TAB PO SCH (08:10)
[2017-09-09] MEDS: ASCORBIC ACID 500 MG TAB PO SCH (08:10)
[2017-09-09] MEDS: MAGNESIUM OXIDE 400 MG TAB PO SCH (08:10)
[2017-09-09] MEDS: PANTOprazole SOD 40 MG TAB PO SCH (08:11)
[2017-09-09] MEDS: CALCIUM 600MG + VIT D 400 IU TAB PO SCH (08:11)
[2017-09-09] MEDS: ASPIRIN 81 MG ECTAB PO SCH (08:11)
[2017-09-09] MEDS: VENLAFAXINE HCL 37.5 MG TAB PO SCH ×2 (08:11→21:12)
[2017-09-09] MEDS: MULTIVITAMIN TAB PO SCH (08:11)
[2017-09-09] MEDS: MICONAZOLE NITRATE POWDER 43 GM EXT SCH ×2 (08:12→21:11)
[2017-09-09] MEDS: POTASSIUM CHLORIDE 20 MEQ TABCR PO SCH (08:12)
[2017-09-09] MEDS: NYSTATIN/TRIAMCINOLONE CR 15 GM TUBE EXT SCH ×2 (08:12→21:12)
[2017-09-09] MEDS: METOPROLOL TARTRATE 25 MG TAB PO SCH ×2 (08:12→21:14)
[2017-09-09] MEDS: INSULIN ASPART 100 UNITS/ML 3 ML PEN SC SCH ×4 (08:24→21:20)
--- NOTE | 2017-09-09 09:08 | Pharmacy Progress Note ---
Pharmacy Glycemic Short Note 2 Date of Service Sep 09, 2017. OUTPATIENT ANTIDIABETIC REGIMEN: * Lantus 25 units SQ qPM * Novolog 10 units SQ TID with meals * HbA1c: 9.1% August 2017 Item Value Date Time Bedside Glucose 101 mg/dl H 09/08/17 0726 Bedside Glucose 226 mg/dl H 09/08/17 1152 Bedside Glucose 55 mg/dl *L 09/08/17 1611 Bedside Glucose 46 mg/dl *L 09/08/17 1627 Bedside Glucose 133 mg/dl H 09/08/17 1653 Bedside Glucose 159 mg/dl H 09/08/172020 Bedside Glucose 119 mg/dl H 09/09/17 0734 ASSESSMENT: * Pt has been receiving ~ 30-35 units of insulin per day with adequate control. However, pt with LOW BSG yesterday secondary to too much CHO coverage. * CF/CR loosened for hypoglycemia yesterday * Low most likely due to decreased PO intake over the past few days and pt was refusing NovoLog coverage. No changes made to NovoLog parameters since BSGs were in goal range. Pt had a relatively large lunch as compared to previous days PO intake (60g CHO) and this large dose of NovoLog 14 units resulted in LOW BSG prior to dinner. * AM fasting BSG remains in goal range with Lantus 20 units SQ HS. No changes needed * PLAN FOR INPATIENT GLYCEMIC CONTROL: * Basal insulin * Lantus SQ HS * BSG < 100mg/dl - 10 units * BSG 100-140mg/dl - 15 units * BSG > 140mg/dl - 20 units * Bolus insulin: parameters loosened last evening after hypo * NovoLog per scale ACHS or Q6hrs while NPO * Goal Range: Low 110 mg/dL - High 140 mg/dL * Correction Factor: 25 mg/dL/unit * Nutritional / Prandial insulin per carb ratio of 1 unit per 8 grams CHO consumed
[2017-09-09] MEDS ORDERED: PHENAZOPYRIDINE HCL 100 MG TAB PO PRN (10:45)
--- NOTE | 2017-09-09 12:53 | Palliative Care Consultation ---
Consultation Date of Consultation: Sep 09, 2017. Requesting Physician: Dr. Frances Attending Physician: Dr. Frances Reason for Consultation: GOALS OF CARE History of Present Illness This patient is a 77 year old male with multiple recurrent hospitalizations ( FIVE in the past 6 months) due to acute on chronic respiratory failure and CHF exacerbations. He was discharged from the hospital most recently on 08/06/17 and was in rehab and apparently discharged home. Patient has been noted to be non- compliant with medications, treatments and discharge recommendations. Additional contributing PMH include BPH and GILLES for which he is to wear BiPAP overnight. The patient has a , son, and [id number], who are involved with his care. Upon meeting this patient, he was sitting in the bedside chair, but required 2+ assist to transition back to the bed. He was continuously trying to get out of bed but kept saying to "move the chair closer" and "get it now, yeah, this way now" which was clear to me that he was intermittently confused. He does have E.Coli that has grown with two sets of blood cultures. His most recent ABG was September 04 with a pCO2 82 - it appears that his baseline on admission was in the 50s and he appears to be COMPENSATED with that PCO2 level. The patient was able to hold a conversation with me, but was intermittently confused. I did ask him if he was feeling like his breathing was worsening and he stated " you don't know what the H this feels like" and "you guys don't know anything here". He did let me know that he lives in a one story home with 2 bedrooms and has been wheelchair bound for the past 10 years - the patient does have significant peripheral neuropathy. I did talk with the son, Flash, in the hallway while he was going out to get some lunch. He stated that his Mom ( patient's ) would be coming around 2PM for which a GOALS OF CARE discussion will be held with Dr. Aquino at the bedside with the patient, , son and daughter-in law.A POLST form was completed on September [address] Frances - we will confirm that there are not any changes and will document an addendum to this note indicating the outcome of the GOALS OF CARE meeting. Past Medical/Surgical History Medical History: BPH GILLES DM CKD CHF COPD Social History Smoking Status: Former Smoker History of Alcohol Use: No Drug Use: none Marital Status: Housing Status: lives with significant other Occupation Status: retired Review of Systems Patient denies CP, dizziness - patient is unreliable to answer ROS questions. Allergies Coded Allergies: Hydromorphone (Verified Adverse Reaction, Severe, DELIRIUM, UNRESPONSIVENESS, 08/01/17) UNRESPONSIVENESS Oxycodone (Verified Adverse Reaction, Unknown, Trouble coming off, 08/01/17 ) Repoted by , NOT ALLERGIC TO THEM Propoxyphene (Verified Adverse Reaction, Unknown, Trouble coming off of Darvocet., 08/01/17) Reported by Medications Current Inpatient Medications Medications (Trade) Dose Ordered Sig/Bj Route Start Time Stop Time Status Last Admin Dose Admin Heparin Sodium (Porcine) (Heparin Sq 5000 Unit/0.5ml) 5,000 unit Q8 SQ 08/27/17 22:00 09/26/17 21:59 09/09/17 12:23 5,000 UNIT Acetaminophen (Tylenol Tab) 650 mg Q4H PRN PO 08/27/17 20:30 09/26/17 20:29 09/09/17 00:45 650 MG Al Hydrox/Mg Hydrox/Simethicone (Maalox Max Susp) 15 ml Q4H PRN PO 08/27/17 20:30 09/26/17 20:29 Ondansetron HCl (Zofran Inj) 4 mg Q6H PRN IV 08/27/17 20:30 09/26/17 20:29 Nitroglycerin (Nitrostat Tab) 0.4 mg UD PRN SL 08/27/17 20:30 09/26/17 20:29 Polyethylene (Miralax Powder Packet) 17 gm DAILY PRN PO 08/27/17 20:30 09/26/17 20:29 Ascorbic Acid (Vitamin C Tab) 500 mg DAILY PO 08/28/17 09:00 09/27/17 08:59 09/09/17 08:10 500 MG Aspirin (Ecotrin Tab) 81 mg DAILY PO 08/28/17 09:00 09/27/17 08:59 09/09/17 08:11 81 MG Finasteride (Proscar Tab) 5 mg QAM PO 08/28/17 09:00 09/27/17 08:59 09/09/17 08:10 5 MG Folic Acid (Folvite Tab) 1 mg DAILY PO 08/28/17 09:00 09/27/17 08:59 09/09/17 08:11 1 MG Gabapentin (Neurontin Cap) 300 mg BID PO 08/27/17 21:00 09/26/17 20:59 Future Hold 09/02/17 09:11 300 MG Magnesium Oxide (Mag-Ox Tab) 400 mg DAILY PO 08/28/17 09:00 09/27/17 08:59 09/09/17 08:10 400 MG Metoprolol Tartrate (Lopressor Tab) 12.5 mg BID PO 08/27/17 21:00 09/26/17 20:59 09/09/17 08:12 12.5 MG Multivitamins (Multivitamin Tab) 1 tab DAILY PO 08/28/17 09:00 09/27/17 08:59 09/09/17 08:11 1 TAB Nystatin/ Triamcinolone Acetonide (Mycogen II Crm) 1 appln BID EXT 08/27/17 21:00 09/26/17 20:59 09/09/17 08:12 1 APPLN Potassium Chloride (Klor-Con Tab) 20 meq BID PO 08/27/17 21:00 09/26/17 20:59 Future hold 09/09/17 08:12 20 MEQ Simvastatin (Zocor Tab) 40 mg QPM PO 08/27/17 21:00 09/26/17 20:59 09/08/17 20:52 40 MG Tamsulosin HCl (Flomax Cap) 0.4 mg HS PO 08/27/17 21:00 09/26/17 20:59 09/08/17 20:53 0.4 MG Venlafaxine HCl (effeXOR TAB) 75 mg BID PO 08/27/17 21:00 09/26/17 20:59 09/09/17 08:11 75 MG Calcium/Vitamin D (Caltrate Plus Tab) 1 tab DAILY PO 08/28/17 09:00 09/27/17 08:59 09/09/17 08:11 1 TAB Insulin Aspart (novoLOG ASPART) SLIDING SCALE G... ACHS SC 08/27/17 21:00 09/26/17 20:59 09/09/17 12:23 7 UNITS Ipratropium [place] (Atrovent 0.02% 0.5MG/2.5ML Neb) 0.5 mg Q4 PRN INH 08/28/17 08:30 09/27/17 08:29 Levalbuterol (Xopenex 1.25MG/ 0.5ML Neb) 1.25 mg Q4 PRN INH 08/28/17 08:30 09/27/17 08:29 Miscellaneous Information (Consult Glycemic Management Pharmacy) 1 ea UD PRN N/A 08/28/17 14:27 09/27/17 14:26 Miconazole Nitrate (Desenex Powder) 1 appln BID EXT 08/29/17 21:00 09/28/17 20:59 09/09/17 08:12 1 APPLN Miconazole Nitrate (Desenex Powder) 1 appln PRN PRN EXT 08/29/17 15:30 09/28/17 15:29 09/04/17 21:15 1 APPLN Albuterol/ Ipratropium (Duoneb) 3 ml Q2H PRN INH 09/02/17 00:15 10/02/17 00:14 Heparin Sodium (Porcine) (Heparin 10 Unit/ ml 5 ml Flush) 5 ml PRN PRN FLUSH 09/02/17 17:45 10/02/17 17:44 09/09/17 11:38 5 ML Ipratropium [place] (Atrovent 0.02% 0.5MG/2.5ML Neb) 0.5 mg Q6R INH 09/03/17 03:00 10/03/17 02:59 09/09/17 07:29 0.5 MG Levalbuterol (Xopenex 1.25MG/ 0.5ML Neb) 1.25 mg Q6R INH 09/03/17 03:00 10/03/17 02:59 09/09/17 07:29 1.25 MG Haloperidol Lactate (Haldol Inj) 2 mg Q2H PRN IM 09/04/17 06:30 10/04/17 06:29 Haloperidol (Haldol Tab) 2 mg Q4H PRN PO 09/04/17 06:45 10/04/17 06:29 09/09/17 00:00 2 MG Furosemide (Lasix Tab) 40 mg BID17 PO 09/05/17 10:00 5/26/18 09:59 09/09/17 08:10 40 MG Insulin Glargine (Lantus Solostar Pen) SEE PROTOCOL HS SQ 09/05/17 21:00 10/05/17 20:59 09/08/17 21:03 20 UNITS Pantoprazole Sodium (Protonix Tab) 40 mg QAM PO 09/06/17 09:00 10/06/17 08:59 09/09/17 08:11 40 MG Ceftriaxone Sodium 2000 mg/ Dextrose 70 ml @ 100 mls/hr Q24H IV 09/08/17 06:00 09/15/17 05:59 09/09/17 06:04 100 MLS/HR Glucose (Glucose 40% Gel) 15-30 GRAMS 15 GRAMS... UD PRN PO 09/08/17 16:45 10/08/17 16:44 Glucose (Glucose Chew Tab) 4-8 Tablets 4 Tabl... UD PRN PO 09/08/17 16:45 10/08/17 16:44 Dextrose (Dextrose 50% 50ML Syringe) 25-50ML OF 50% DW IV FOR... UD PRN IV 09/08/17 16:45 10/08/17 16:44 Glucagon (Glucagon Inj) 1 mg UD PRN SQ 09/08/17 16:45 10/08/17 16:44 Menthol (Nice Shae) 1 shae PRN PRN SHAE 09/09/17 01:00 10/09/17 00:59 09/09/17 01:09 1 SHAE Phenazopyridine HCl (Pyridium Tab) 100 mg Q8 PRN PO 09/09/17 10:45 10/09/17 10:44 09/09/17 12:17 100 MG Physical Exam Date Time Temp Pulse Resp B/P (MAP) Pulse Ox O2 Delivery O2 Flow Rate FiO2 09/09/17 12:47 36.5 79 20 115/67 (83) 95 Nasal Cannula 4.0 09/09/17 12:36 Nasal Cannula 4.0 09/09/17 08:20 Nasal Cannula 4.0 09/09/17 07:29 84 20 95 Nasal Cannula 4.0 09/09/17 07:00 36.7 73 24 148/76 (100) 97 Nasal Cannula 4.0 09/09/17 04:41 37.1 80 20 133/65 (87) 99 Nasal Cannula 4.0 09/09/17 04:00 Nasal Cannula 4.0 09/09/17 02:05 79 20 96 Nasal Cannula 4.0 09/09/17 00:00 Nasal Cannula 4.0 09/08/17 22:55 36.4 80 18 114/74 (87) 97 Nasal Cannula 3.0 09/08/17 21:00 88 131/71 (91) 09/08/17 20:00 Nasal Cannula 4.0 09/08/17 19:45 36.5 88 18 161/95 (117) 100 Nasal Cannula 4.0 09/08/17 19:31 86 20 97 Nasal Cannula 4.0 09/08/17 16:03 94 BiPAP 4.0 09/08/17 14:57 81 20 93 BiPAP/CPAP 4.0 09/08/17 14:44 36.3 78 20 105/69 (81) 91 Nasal Cannula 4.0 General Appearance: + mild distress (patient ) Respiratory: chest non-tender, + pertinent finding (lungs are coarse throughout - with audible and auscultated expiratory wheezes) Cardiovascular: regular rate, rhythm, no gallop, no JVD, no murmur Abdomen: non tender, + pertinent finding (large abdomen with panus - hypoactive bowel sounds, non tender) Musculoskeletal: pertinent finding (B/L UE 3+/5, B/L LE unable to wiggle toes and 1/5 for strength) Neurologic/Psychiatric: + pertinent finding (patient with periods of confusion - patient oriented to self, time and location - patient not able to be consistent with current complexity of medical condition) Laboratory Results Last 24 Hours Test 09/08/17 16:11 09/08/17 16:27 09/08/17 16:53 09/08/17 20:21 Bedside Glucose 55 mg/dl 46 mg/dl 133 mg/dl 159 mg/dl Test 09/09/17 05:14 09/09/17 07:34 09/09/17 11:24 White Blood Count 7.40 K/uL Red Blood Count 4.65 M/uL Hemoglobin 9.4 g/dL Hematocrit 33.7 % Mean Corpuscular Volume 72.5 fL Mean Corpuscular Hemoglobin 20.2 pg Mean Corpuscular Hemoglobin Concent 27.9 g/dl RDW Standard Deviation 50.0 fL RDW Coefficient of Variation 19.3 % Platelet Count 228 K/uL Mean Platelet Volume 9.9 fL Sodium Level 142 mmol/L Potassium Level 4.1 mmol/L Chloride Level 104 mmol/L Carbon Dioxide Level 36 mmol/L Anion Gap 3.0 mmol/L Blood Urea Nitrogen 13 mg/dl Creatinine 0.87 mg/dl Est Creatinine Clear Calc Drug Dose 89.7 ml/min Estimated GFR () 97.2 Estimated GFR (Non- 83.8 BUN/Creatinine Ratio 14.9 Random Glucose 125 mg/dl Calcium Level 8.1 mg/dl Bedside Glucose 119 mg/dl 117 mg/dl Assessment & Plan Palliative Performance Scale: 20 % Palliative Care Encounter Goals of Care Acute on Chronic Respiratory Failure CHF GILLES Palliative Care Recommendations: -Continue with supportive treatment currently in place. -GOALS OF CARE meeting to be held with patient and patient's family at 1400 today. Discharge planning to be discussed as well. -Downgrade to medical status from Tele status Thank you kindly for this consult - we will continue to follow as needed throughout this patient's hospitalization. Counseling and Coordination Total time spent 70 minutes with > 50% of that time assessing patient, discussing GOALS OF CARE with patient in the room, and son and daughter-in law in the hallway.
[2017-09-09] MEDS: PHENAZOPYRIDINE HCL 100 MG TAB PO PRN ×2 (18:20→23:38)
--- NOTE | 2017-09-09 18:35 | Progress Note ---
Medicine Progress Note Date & Time of Visit: Sep 09, 2017 at 17:51. Subjective Patient is awake but remains drowsy and intermittently confused. He was refusing to wear the bipap since this AM and it was finally left off. The patient was seen earlier today with his son and daughter in law at the bedside. The family is aware that Palliative care will be here today to speak to the patient and themselves. No other overnight events noted. PO intake is good, family has been bringing him meals from outside per his request. The patient only complains of burning in his penis from the catheter and reports some relief from the pyridium. Palliative care did see the patient and had an extensive conversation with the patient and family, they have decided to pursue comfort measures due to the progressively worsening pattern that the patient keeps falling into with his bipap refusal, elevated CO2, repeated readmissions, and increased immobility. They are aware the patient is highly unlikely to recover from this and that even if he were to leave the hospital for rehab or placement, he would never recover enough to come home and the patient would not want to live that way. Objective Last 8 Hrs Date Time Temp Pulse Resp B/P (MAP) Pulse Ox O2 Delivery O2 Flow Rate FiO2 09/09/17 15:10 36.1 78 24 115/68 (84) 98 09/09/17 14:06 93 22 94 Nasal Cannula 4.0 09/09/17 12:47 36.5 79 20 115/67 (83) 95 Nasal Cannula 4.0 09/09/17 12:36 Nasal Cannula 4.0 Physical Exam: GENERAL: Patient is in no acute distress. HEENT: No acute trauma, normocephalic, mucous membranes moist, no nasal congestion, no scleral icterus. NECK: No stridor, trachea is midline. LUNGS: CTA bilaterally, no rhonchi, breath sounds equal. Diminished bases HEART: Without murmurs gallops or rubs, regular rate and rhythm. ABDOMEN: Soft, nontender, bowel sounds positive EXTREMITIES: No cyanosis; no edema, full range of motion of all the joints without pain or difficulty, no signs for acute trauma. NEUROLOGIC: Awake and oriented, but unable to stay fully awake and forgetful, no apparent acute motor or sensory deficits, no focal weakness. SKIN: No rash, no jaundice, no diaphoresis. Laboratory Results: Last 24 Hours Test 4/29/18 20:21 09/09/17 05:14 09/09/17 07:34 09/09/17 11:24 Bedside Glucose 159 mg/dl 119 mg/dl 117 mg/dl White Blood Count 7.40 K/uL Red Blood Count 4.65 M/uL Hemoglobin 9.4 g/dL Hematocrit 33.7 % Mean Corpuscular Volume 72.5 fL Mean Corpuscular Hemoglobin 20.2 pg Mean Corpuscular Hemoglobin Concent 27.9 g/dl RDW Standard Deviation 50.0 fL RDW Coefficient of Variation 19.3 % Platelet Count 228 K/uL Mean Platelet Volume 9.9 fL Sodium Level 142 mmol/L Potassium Level 4.1 mmol/L Chloride Level 104 mmol/L Carbon Dioxide Level 36 mmol/L Anion Gap 3.0 mmol/L Blood Urea Nitrogen 13 mg/dl Creatinine 0.87 mg/dl Est Creatinine Clear Calc Drug Dose 89.7 ml/min Estimated GFR () 97.2 Estimated GFR (Non- 83.8 BUN/Creatinine Ratio 14.9 Random Glucose 125 mg/dl Calcium Level 8.1 mg/dl Test 09/09/17 16:28 Bedside Glucose 68 mg/dl Assessment & Plan SEVERE SEPSIS: from BACTEREMIA: resolved -cultures grew MDR E.COLI from blood cultures X 2 sets -met criteria for severe sepsis on admission with fever/ leukocytosis/ tachycardia/tachypnea/hypotension/acute renal failure/confusion -initially treated with empiric broad-spectrum antibiotic with IV vancomycin/ Zosyn -recent history of Pseudomonas and enterococcus urinary tract infection -was unable to provide a clean catch urine on admission, and nursing unable to to put a Rodriguez catheter or straight cath by nursing due to history of BPH -Urology consulted and rodriguez placed by attending -Urine culture catheterized sample no growth/patient was already been on IV antibiotic treatment -remains afebrile, BP improved, no leukocytosis -08/27/17; 2 sets blood culture; gram-negative bacilli-->E. coli: Multidrug- resistant: Resistant to quinolone/ampicillin; Sensitive to Rocephin/Invanz/ imipenem -ID consulted, IV vancomycin/IV Zosyn discontinued; changed to IV Rocephin 2 g daily -Repeat blood culture on 08-29-17: Grew E. coli with same sensitivities -3rd set Blood cultures: no growth -repeat urine culture negative -PICC Line placed; -per ID: patient should be treated with ceftriaxone 2 gm daily. Recommended 7 days of IV antibiotics with transition to oral if remains afebrile following that; patient has completed this and remains afebrile with negative cultures and no symptoms. HYPOXEMIA/ACUTE ON CHRONIC RESPIRATORY FAILURE: -likely multifactorial from decompensated CHF with diastolic dysfunction/CO2 retention from OHS and GILLES with poor outpatient compliance -intermittently on Bipap during the day, encouraged patient to wear it overnight , his even brought his bipap and mask from home for patient's comfort, but patient continues to refuse it and per discussion with Palliative care today, the bipap will no longer be encouraged to the patient as he does not wish to wear it and the family does not want the patient to be forced to use it -continue on Neb tx PRN comfort -Pulmonary consulted, appreciate recs -No role for steroids at this time -diuresis as tolerated, continue this for comfort -Palliative care consulted, per discussion with the family and patient, the patient is going to be made comfort measures and non-comfort medications will be stopped, bipap will be stopped, and the focus will be on comfort and pain control only. CONFUSION/METABOLIC ENCEPHALOPATHY: -possibly due to severe sepsis/acute renal failure, but also noted to have CO2 trending upward which could be contributing -on treatment of infection/correction of hypoxemia/resolution of renal, Bipap as tolerated and qHS -remains high fall risk, ordered bed alarm, low boy bed -still requiring 1:1 observation due to increased agitation/worsening of confusion/sundowning and removal of bipap or oxygen -improving; as CO2 is trending down patient seems more oriented but not yet at baseline, and still confused and drowsy intermittently ACUTE ON CHRONIC DIASTOLIC CONGESTIVE HEART FAILURE EXACERBATION: -Lasix and Zaroxolyn were on hold initially in setting of severe sepsis/risk of intravascular volume depletion -TTE from July 2017, normal EF and valvular function. -Cardiology eval appreciated -CXR demonstrated b/l pleural effusions and worsening congestive changes, thus increased lasix from PO to IV at 60mg BID; but held and changed back to PO due to poor intake -monitor daily weights and I's and O's closely -lasix resumed PO, will continue this in comfort measures as well as metoprolol -will stop vital signs and labs per discussion with the family ARRHYTHMIA: PAC/PVC -Cardiology was consulted, appreciate input -No evidence of A. fib noted -noted to have frequent PAC/PVC possible secondary to sepsis/acute renal failure -No cardiac intervention indicated -Cardiology recommended correction of the underlying cause -continue metoprolol -d/c tele monitoring DM TYPE II: -continue Lantus + correction scale insulin -Pharmacy consulted for glycemic management, appreciate assistance OBSTRUCTIVE SLEEP APNEA: -continue BiPAP at night; patient refuses, will stop this now as comfort measures -known non-compliance at home, patient also struggles with compliance in the hospital HTN: -stable, occasionally on lower side of normal -Lasix resumed -continued on Lopressor with holding parameters -stop aggressive monitoring RENEA ON CKD STAGE III: resolved -had RENEA due to severe sepsis/infection-intravascular volume depletion -renal function at approximate baseline -resumed Lasix BID PO and tolerating this without difficulty -no lab draws; lasix PRN comfort for breathing and edema management BPH: -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 Qureshi, and recommended patient to continue to keep Rodriguez catheter upon discharge -also has outpatient follow-up with Dr. Hameed and will need outpatient cystoscopy to evaluate for urethral stricture SACRAL DECUBITUS ULCER: STAGE I/II -was present on admission -Wound care consulted, appreciate recs Dispo: Patient is comfort measures as of today (09/09/17) as per discussion of the family and Palliative care with the patient. This was confirmed when I spoke with the this evening as well. The patient will not be coaxed into wearing the bipap, or take all of the medications that he has been, nor will he undergo aggressive vitals or lab draws. Current Inpatient Medications: Current Inpatient Medications Medications (Trade) Dose Ordered Sig/Bj Route Start Time Stop Time Status Last Admin Dose Admin Heparin Sodium (Porcine) (Heparin Sq 5000 Unit/0.5ml) 5,000 unit Q8 SQ 08/27/17 22:00 09/26/17 21:59 09/09/17 12:23 5,000 UNIT Acetaminophen (Tylenol Tab) 650 mg Q4H PRN PO 08/27/17 20:30 09/26/17 20:29 09/09/17 00:45 650 MG Al Hydrox/Mg Hydrox/Simethicone (Maalox Max Susp) 15 ml Q4H PRN PO 08/27/17 20:30 09/26/17 20:29 Ondansetron HCl (Zofran Inj) 4 mg Q6H PRN IV 08/27/17 20:30 09/26/17 20:29 Nitroglycerin (Nitrostat Tab) 0.4 mg UD PRN SL 08/27/17 20:30 09/26/17 20:29 Polyethylene (Miralax Powder Packet) 17 gm DAILY PRN PO 08/27/17 20:30 09/26/17 20:29 Aspirin (Ecotrin Tab) 81 mg DAILY PO 08/28/17 09:00 09/27/17 08:59 09/09/17 08:11 81 MG Finasteride (Proscar Tab) 5 mg QAM PO 08/28/17 09:00 09/27/17 08:59 09/09/17 08:10 5 MG Folic Acid (Folvite Tab) 1 mg DAILY PO 08/28/17 09:00 09/27/17 08:59 09/09/17 08:11 1 MG Gabapentin (Neurontin Cap) 300 mg BID PO 08/27/17 21:00 09/26/17 20:59 Future Hold 09/02/17 09:11 300 MG Metoprolol Tartrate (Lopressor Tab) 12.5 mg BID PO 08/27/17 21:00 09/26/17 20:59 09/09/17 08:12 12.5 MG Nystatin/ Triamcinolone Acetonide (Mycogen II Crm) 1 appln BID EXT 08/27/17 21:00 09/26/17 20:59 09/09/17 08:12 1 APPLN Tamsulosin HCl (Flomax Cap) 0.4 mg HS PO 08/27/17 21:00 09/26/17 20:59 09/08/17 20:53 0.4 MG Venlafaxine HCl (effeXOR TAB) 75 mg BID PO 08/27/17 21:00 09/26/17 20:59 09/09/17 08:11 75 MG Insulin Aspart (novoLOG ASPART) SLIDING SCALE G... ACHS SC 08/27/17 21:00 09/26/17 20:59 09/09/17 12:23 7 UNITS Ipratropium [place] (Atrovent 0.02% 0.5MG/2.5ML Neb) 0.5 mg Q4 PRN INH 08/28/17 08:30 09/27/17 08:29 Levalbuterol (Xopenex 1.25MG/ 0.5ML Neb) 1.25 mg Q4 PRN INH 08/28/17 08:30 09/27/17 08:29 Miscellaneous Information (Consult Glycemic Management Pharmacy) 1 ea UD PRN N/A 08/28/17 14:27 09/27/17 14:26 Miconazole Nitrate (Desenex Powder) 1 appln BID EXT 08/29/17 21:00 09/28/17 20:59 09/09/17 08:12 1 APPLN Miconazole Nitrate (Desenex Powder) 1 appln PRN PRN EXT 08/29/17 15:30 09/28/17 15:29 09/04/17 21:15 1 APPLN Albuterol/ Ipratropium (Duoneb) 3 ml Q2H PRN INH 09/02/17 00:15 10/02/17 00:14 Heparin Sodium (Porcine) (Heparin 10 Unit/ ml 5 ml Flush) 5 ml PRN PRN FLUSH 09/02/17 17:45 10/02/17 17:44 09/09/17 11:38 5 ML Ipratropium [place] (Atrovent 0.02% 0.5MG/2.5ML Neb) 0.5 mg Q6R INH 09/03/17 03:00 10/03/17 02:59 09/09/17 14:06 0.5 MG Levalbuterol (Xopenex 1.25MG/ 0.5ML Neb) 1.25 mg Q6R INH 09/03/17 03:00 10/03/17 02:59 09/09/17 14:06 1.25 MG Haloperidol Lactate (Haldol Inj) 2 mg Q2H PRN IM 09/04/17 06:30 10/04/17 06:29 Haloperidol (Haldol Tab) 2 mg Q4H PRN PO 09/04/17 06:45 10/04/17 06:29 09/09/17 00:00 2 MG Furosemide (Lasix Tab) 40 mg BID17 PO 09/05/17 10:00 10/05/17 09:59 09/09/17 17:08 40 MG Insulin Glargine (Lantus Solostar Pen) SEE PROTOCOL HS SQ 09/05/17 21:00 10/05/17 20:59 09/08/17 21:03 20 UNITS Pantoprazole Sodium (Protonix Tab) 40 mg QAM PO 09/06/17 09:00 10/06/17 08:59 09/09/17 08:11 40 MG Glucose (Glucose 40% Gel) 15-30 GRAMS 15 GRAMS... UD PRN PO 09/08/17 16:45 10/08/17 16:44 Glucose (Glucose Chew Tab) 4-8 Tablets 4 Tabl... UD PRN PO 09/08/17 16:45 10/08/17 16:44 Dextrose (Dextrose 50% 50ML Syringe) 25-50ML OF 50% DW IV FOR... UD PRN IV 09/08/17 16:45 10/08/17 16:44 Glucagon (Glucagon Inj) 1 mg UD PRN SQ 09/08/17 16:45 10/08/17 16:44 Menthol (Nice Shae) 1 shae PRN PRN SHAE 09/09/17 01:00 10/09/17 00:59 09/09/17 01:09 1 SHAE Phenazopyridine HCl (Pyridium Tab) 100 mg Q6 PRN PO 09/09/17 17:45 10/09/17 10:44 Morphine Sulfate (Roxanol Oral Soln) 2.5 mg Q2R PRN PO 09/09/17 17:45 09/23/17 17:44
--- NOTE | 2017-09-09 19:52 | Infectious Disease Progress Nt ---
Progress Note Date of Service Sep 09, 2017. Subjective Pt evaluation today including: conversation w/ patient, physical exam, chart review, lab review, review of studies, conversation w/ senior talent management consultant, review of inpatient medication list Patient remains confused. Palliative care consultation noted, patient now transferred to comfort care. All Other Systems: Reviewed and Negative Medications Current Inpatient Medications Medications (Trade) Dose Ordered Sig/Bj Route Start Time Stop Time Status Last Admin Dose Admin Heparin Sodium (Porcine) (Heparin Sq 5000 Unit/0.5ml) 5,000 unit Q8 SQ 08/27/17 22:00 09/26/17 21:59 09/09/17 12:23 5,000 UNIT Acetaminophen (Tylenol Tab) 650 mg Q4H PRN PO 08/27/17 20:30 09/26/17 20:29 09/09/17 00:45 650 MG Al Hydrox/Mg Hydrox/Simethicone (Maalox Max Susp) 15 ml Q4H PRN PO 08/27/17 20:30 09/26/17 20:29 Ondansetron HCl (Zofran Inj) 4 mg Q6H PRN IV 08/27/17 20:30 09/26/17 20:29 Nitroglycerin (Nitrostat Tab) 0.4 mg UD PRN SL 08/27/17 20:30 09/26/17 20:29 Polyethylene (Miralax Powder Packet) 17 gm DAILY PRN PO 08/27/17 20:30 09/26/17 20:29 Aspirin (Ecotrin Tab) 81 mg DAILY PO 08/28/17 09:00 09/27/17 08:59 09/09/17 08:11 81 MG Finasteride (Proscar Tab) 5 mg QAM PO 08/28/17 09:00 09/27/17 08:59 09/09/17 08:10 5 MG Folic Acid (Folvite Tab) 1 mg DAILY PO 08/28/17 09:00 09/27/17 08:59 09/09/17 08:11 1 MG Gabapentin (Neurontin Cap) 300 mg BID PO 08/27/17 21:00 09/26/17 20:59 Future Hold 09/02/17 09:11 300 MG Metoprolol Tartrate (Lopressor Tab) 12.5 mg BID PO 08/27/17 21:00 09/26/17 20:59 09/09/17 08:12 12.5 MG Nystatin/ Triamcinolone Acetonide (Mycogen II Crm) 1 appln BID EXT 08/27/17 21:00 09/26/17 20:59 09/09/17 08:12 1 APPLN Tamsulosin HCl (Flomax Cap) 0.4 mg HS PO 08/27/17 21:00 09/26/17 20:59 09/08/17 20:53 0.4 MG Venlafaxine HCl (effeXOR TAB) 75 mg BID PO 08/27/17 21:00 09/26/17 20:59 09/09/17 08:11 75 MG Insulin Aspart (novoLOG ASPART) SLIDING SCALE G... ACHS SC 08/27/17 21:00 09/26/17 20:59 09/09/17 12:23 7 UNITS Ipratropium [place] (Atrovent 0.02% 0.5MG/2.5ML Neb) 0.5 mg Q4 PRN INH 08/28/17 08:30 09/27/17 08:29 Levalbuterol (Xopenex 1.25MG/ 0.5ML Neb) 1.25 mg Q4 PRN INH 08/28/17 08:30 09/27/17 08:29 Miscellaneous Information (Consult Glycemic Management Pharmacy) 1 ea UD PRN N/A 08/28/17 14:27 09/27/17 14:26 Miconazole Nitrate (Desenex Powder) 1 appln BID EXT 08/29/17 21:00 09/28/17 20:59 09/09/17 08:12 1 APPLN Miconazole Nitrate (Desenex Powder) 1 appln PRN PRN EXT 08/29/17 15:30 09/28/17 15:29 09/04/17 21:15 1 APPLN Albuterol/ Ipratropium (Duoneb) 3 ml Q2H PRN INH 09/02/17 00:15 10/02/17 00:14 Heparin Sodium (Porcine) (Heparin 10 Unit/ ml 5 ml Flush) 5 ml PRN PRN FLUSH 09/02/17 17:45 10/02/17 17:44 09/09/17 11:38 5 ML Ipratropium [place] (Atrovent 0.02% 0.5MG/2.5ML Neb) 0.5 mg Q6R INH 09/03/17 03:00 10/03/17 02:59 09/09/17 14:06 0.5 MG Levalbuterol (Xopenex 1.25MG/ 0.5ML Neb) 1.25 mg Q6R INH 09/03/17 03:00 10/03/17 02:59 09/09/17 14:06 1.25 MG Haloperidol Lactate (Haldol Inj) 2 mg Q2H PRN IM 09/04/17 06:30 10/04/17 06:29 Haloperidol (Haldol Tab) 2 mg Q4H PRN PO 09/04/17 06:45 10/04/17 06:29 09/09/17 00:00 2 MG Furosemide (Lasix Tab) 40 mg BID17 PO 09/05/17 10:00 10/05/17 09:59 09/09/17 17:08 40 MG Insulin Glargine (Lantus Solostar Pen) SEE PROTOCOL HS SQ 09/05/17 21:00 10/05/17 20:59 09/08/17 21:03 20 UNITS Pantoprazole Sodium (Protonix Tab) 40 mg QAM PO 09/06/17 09:00 10/06/17 08:59 09/09/17 08:11 40 MG Glucose (Glucose 40% Gel) 15-30 GRAMS 15 GRAMS... UD PRN PO 09/08/17 16:45 10/08/17 16:44 Glucose (Glucose Chew Tab) 4-8 Tablets 4 Tabl... UD PRN PO 09/08/17 16:45 10/08/17 16:44 Dextrose (Dextrose 50% 50ML Syringe) 25-50ML OF 50% DW IV FOR... UD PRN IV 09/08/17 16:45 10/08/17 16:44 Glucagon (Glucagon Inj) 1 mg UD PRN SQ 09/08/17 16:45 10/08/17 16:44 Menthol (Nice [place]rest[place]) 1 orestes PRN PRN ORESTES 09/09/17 01:00 10/09/17 00:59 09/09/17 01:09 1 ORESTES Phenazopyridine HCl (Pyridium Tab) 100 mg Q6 PRN PO 09/09/17 17:45 10/09/17 10:44 09/09/17 18:20 100 MG Morphine Sulfate (Roxanol Oral Soln) 2.5 mg Q2R PRN PO 09/09/17 17:45 09/23/17 17:44 Objective Vital Signs Date Time Temp Pulse Resp B/P (MAP) Pulse Ox O2 Delivery O2 Flow Rate FiO2 09/09/17 17:54 Nasal Cannula 4.0 09/09/17 15:10 36.1 78 24 115/68 (84) 98 09/09/17 14:06 93 22 94 Nasal Cannula 4.0 09/09/17 12:47 36.5 79 20 115/67 (83) 95 Nasal Cannula 4.0 09/09/17 12:36 Nasal Cannula 4.0 09/09/17 08:20 Nasal Cannula 4.0 09/09/17 07:29 84 20 95 Nasal Cannula 4.0 09/09/17 07:00 36.7 73 24 148/76 (100) 97 Nasal Cannula 4.0 09/09/17 04:41 37.1 80 20 133/65 (87) 99 Nasal Cannula 4.0 09/09/17 04:00 Nasal Cannula 4.0 09/09/17 02:05 79 20 96 Nasal Cannula 4.0 09/09/17 00:00 Nasal Cannula 4.0 09/08/17 22:55 36.4 80 18 114/74 (87) 97 Nasal Cannula 3.0 09/08/17 21:00 88 131/71 (91) 09/08/17 20:00 Nasal Cannula 4.0 Physical Exam General Appearance: WD/WN, no apparent distress Eyes: normal inspection, EOMI, sclerae normal ENT: normal ENT inspection, pharynx normal Neck: supple, no adenopathy, thyroid normal, trachea midline Respiratory/Chest: chest non-tender, lungs clear, normal breath sounds, no respiratory distress Cardiovascular: regular rate, rhythm, no gallop, no murmur Abdomen: normal bowel sounds, non tender, soft, no organomegaly Extremities: non-tender, normal inspection, no calf tenderness Neurologic/Psychiatric: alert, + disoriented Skin: normal color, warm/dry, no rash Lymphatic: no adenopathy Laboratory Results Last 24 Hours Test 09/08/17 20:21 09/09/17 05:14 09/09/17 07:34 09/09/17 11:24 Bedside Glucose 159 mg/dl 119 mg/dl 117 mg/dl White Blood Count 7.40 K/uL Red Blood Count 4.65 M/uL Hemoglobin 9.4 g/dL Hematocrit 33.7 % Mean Corpuscular Volume 72.5 fL Mean Corpuscular Hemoglobin 20.2 pg Mean Corpuscular Hemoglobin Concent 27.9 g/dl RDW Standard Deviation 50.0 fL RDW Coefficient of Variation 19.3 % Platelet Count 228 K/uL Mean Platelet Volume 9.9 fL Sodium Level 142 mmol/L Potassium Level 4.1 mmol/L Chloride Level 104 mmol/L Carbon Dioxide Level 36 mmol/L Anion Gap 3.0 mmol/L Blood Urea Nitrogen 13 mg/dl Creatinine 0.87 mg/dl Est Creatinine Clear Calc Drug Dose 89.7 ml/min Estimated GFR () 97.2 Estimated GFR (Non- 83.8 BUN/Creatinine Ratio 14.9 Random Glucose 125 mg/dl Calcium Level 8.1 mg/dl Test 09/09/17 16:28 Bedside Glucose 68 mg/dl Assessment and Plan E. coli bacteremia with encephalopathy, likely from urinary tract source, now with negative blood cultures after treatment with ceftriaxone. Patient now on comfort care, antibiotics have been discontinued. Will discontinue daily ID follow-up at this time, please consult us if any further input necessary.
[2017-09-09] MEDS: TAMSULOSIN HCL 0.4 MG CAP PO SCH (21:12)
[2017-09-09] MEDS: INSULIN GLARGINE SOLOSTAR 100 UNITS/ML 3 ML PEN SQ SCH (21:21)
[2017-09-10] VITALS (7 sets, daily range): BP systolic 96–165; BP diastolic 60–91; PULSE 75–90; TEMP 36.4–36.9; O2SAT 93–100
[2017-09-10] MEDS: IPRATROPIUM BROMIDE NEB SOLN 0.02% 2.5 ML VIAL INH SCH ×4 (02:33→19:31)
[2017-09-10] MEDS: LEVALBUTEROL 1.25MG/0.5ML NEB INH SCH ×4 (02:34→19:31)
[2017-09-10] MEDS: HEPARIN SOD 5000 UNIT/0.5 ML CARP SQ SCH ×3 (05:54→21:56)
[2017-09-10] MEDS: ASPIRIN 81 MG ECTAB PO SCH (08:02)
[2017-09-10] MEDS: VENLAFAXINE HCL 37.5 MG TAB PO SCH ×2 (08:02→19:44)
[2017-09-10] MEDS: PANTOprazole SOD 40 MG TAB PO SCH (08:03)
[2017-09-10] MEDS: METOPROLOL TARTRATE 25 MG TAB PO SCH ×2 (08:04→19:45)
[2017-09-10] MEDS: FINASTERIDE 5 MG TAB PO SCH (08:04)
[2017-09-10] MEDS: FUROSEMIDE 40 MG TAB PO SCH ×2 (08:05→17:01)
[2017-09-10] MEDS: INSULIN ASPART 100 UNITS/ML 3 ML PEN SC SCH ×4 (08:06→21:55)
[2017-09-10] MEDS: PHENAZOPYRIDINE HCL 100 MG TAB PO PRN ×3 (08:07→21:49)
[2017-09-10] MEDS: MICONAZOLE NITRATE POWDER 43 GM EXT SCH ×2 (11:21→19:41)
[2017-09-10] MEDS: NYSTATIN/TRIAMCINOLONE CR 15 GM TUBE EXT SCH ×2 (11:22→19:41)
[2017-09-10] MEDS: ACETAMINOPHEN 325 MG TAB PO PRN ×2 (11:32→17:02)
--- NOTE | 2017-09-10 13:23 | Pharmacy Progress Note ---
Pharmacy Glycemic Short Note 2 Date of Service September 10, 2017. OUTPATIENT ANTIDIABETIC REGIMEN: * Lantus 25 units SQ qPM * Novolog 10 units SQ TID with meals * HbA1c: 9.1% August 2017 Item Value Date Time Bedside Glucose 101 mg/dl H 09/08/17 0726 Bedside Glucose 226 mg/dl H 09/08/17 1152 Bedside Glucose 55 mg/dl *L 09/08/17 1611 Bedside Glucose 46 mg/dl *L 09/08/17 1627 Bedside Glucose 133 mg/dl H 09/08/17 1653 Bedside Glucose 159 mg/dl H 09/08/17 2021 Bedside Glucose 119 mg/dl H 09/09/17 0734 Item Value Date Time Bedside Glucose 117 mg/dl H 09/09/17 1124 Bedside Glucose 68 mg/dl *L 09/09/17 1628 Bedside Glucose 228 mg/dl H 09/09/17 2059 Bedside Glucose 108 mg/dl H 09/10/17 0735 Bedside Glucose 163 mg/dl H 09/10/17 1132 ASSESSMENT: * Pt has been receiving ~ 30-35 units of insulin per day with adequate control. However, pt with LOW BSG prior to dinner on 09/08 & 09/09 secondary to too much CHO coverage. * CF/CR loosened for hypoglycemia yesterday --> will further loosen today * AM fasting BSG trending downwards with Lantus 20 units SQ HS. Will lower dose slightly to prevent hypoglycemia. PLAN FOR INPATIENT GLYCEMIC CONTROL: * Basal insulin : decrease dosing * Lantus 17 units SQ HS * Bolus insulin: loosen parameters * NovoLog per scale ACHS or Q6hrs while NPO * Goal Range: Low 110 mg/dL - High 140 mg/dL * Correction Factor: 30 mg/dL/unit * Nutritional / Prandial insulin per carb ratio of 1 unit per 9 grams CHO consumed
--- NOTE | 2017-09-10 13:46 | Palliative Care Progress Note ---
Palliative Care Progress Note Date of Service September 10, 2017. Subjective Pt evaluation today including: conversation w/ patient, conversation w/ family , physical exam Pain: appears comfortable - does complain of urethral burning Voiding: rodriguez catheter in place Patient was evaluated at the bedside. Family was in the room and asked to have a meeting with Dr. Beltran, Palliative care and Service excellence, in order to complete an Advanced Directive. The patient's breathing appears to be more comfortable today lying in bed. He is sitting more upright and able to have a full conversation - with intermittent confusion. The family agrees that the patient will remain on comfort with no further lab draws or heart monitoring. The patient will take his meds as he wishes, but does not want us to discontinue them all together. We did confirm that the patient will be transferred to a nursing facility with hospice and we will ensure that case management follows up with them directly in order to establish a plan. It appears that the family would like to pursue [facility]. All questions were answered and case management made aware. Review of Systems Pt denies CP, palpitations, dizziness, abdominal pain, swelling. Objective Vital Signs Date Time Temp Pulse Resp B/P (MAP) Pulse Ox O2 Delivery O2 Flow Rate FiO2 09/10/17 11:00 36.5 85 20 165/91 (115) 100 Nasal Cannula 4.0 09/10/17 09:04 Nasal Cannula 4.0 09/10/17 07:20 36.8 89 20 112/66 (81) 95 Nasal Cannula 4.0 09/10/17 07:01 90 22 96 Nasal Cannula 4.0 09/10/17 04:05 36.4 81 20 144/65 (91) 97 Nasal Cannula 4.0 09/10/17 04:00 Nasal Cannula 4.0 09/10/17 00:00 Nasal Cannula 4.0 09/09/17 23:20 36.9 82 24 123/60 (81) 96 Nasal Cannula 4.0 09/09/17 21:13 97 112/88 (96) 09/09/17 20:05 91 22 99 Nasal Cannula 4.0 09/09/17 17:54 Nasal Cannula 4.0 09/09/17 15:10 36.1 78 24 115/68 (84) 98 09/09/17 14:06 93 22 94 Nasal Cannula 4.0 Physical Exam General Appearance: + mild distress (patient complaining of urethral burning) Neck: no JVD Respiratory/Chest: + pertinent finding (expiratory wheezes throughout) Cardiovascular: + pertinent finding (+1 LE B/L pitting edema) Abdomen: + pertinent finding (large, soft, non tender - hypoactive bowel sounds ) Neurologic/Psychiatric: + pertinent finding (oriented to self, location but unsure patient understands and can discuss the complexity of his medical condition) Skin: warm/dry (some scaling and skin peeling on the bottom of his feet) Laboratory Results Last 24 Hours Test 09/09/17 16:28 09/09/17 20:59 09/10/17 07:35 09/10/17 11:32 Bedside Glucose 68 mg/dl 228 mg/dl 108 mg/dl 163 mg/dl Assessment and Plan Palliative Care Encounter Goals of Care Acute on Chronic respiratory failure CHF Palliative Care Recommendations: -Patient to remain DNR/DNI - comfort measures -Patient to be downgraded off of tele status - transition to . -Case management made aware regarding goal of transferring to [facility] - family aware to fill out [facility] benefit to proceed with Hospice eligibility -No further lab draws to be completed and monitoring to be D/C Palliative Performance Scale: 20 % Continued [facility] stay due to: other (discharge planning in place) Discharge planning: halfway facility (for comfort) Counseling and Coordination Total time spent 35 minutes with > 50% of that time spent assessing patient and discussing GOALS OF CARE with patient, , and family at the bedside.
[2017-09-10] MEDS: MoRPHine SULFATE 2.5 MG/0.125 ML UDP PO PRN ×2 (14:16→17:28)
--- NOTE | 2017-09-10 17:42 | Progress Note ---
Medicine Progress Note Date & Time of Visit: September 10, 2017 at 17:30. Subjective seen with his Cherie and children at the bedside comfortable, alert, oriented x 2, not in distress, comfortable states he feels "super" but also mentions burning in his rodriguez cath site denies dyspnea, chest pain, palpitations, dizziness no other symptoms Objective Last 8 Hrs Date Time Temp Pulse Resp B/P (MAP) Pulse Ox O2 Delivery O2 Flow Rate FiO2 09/10/17 16:00 Nasal Cannula 4.0 09/10/17 14:18 78 20 98 Nasal Cannula 4.0 09/10/17 11:00 36.5 85 20 165/91 (115) 100 Nasal Cannula 4.0 Physical Exam: General- oriented x 2, not in distress, speaks in sentences with no effort Head- atraumatic Eyes- PERRL, EOMI, anicteric ENT- oropharynx clear Neck- supple, no JVD, no adenopathy, no thyromegaly Lungs- mild rales bilateral bases no wheezing Heart- regular rhythm; no murmur, normal rate Abdomen- normal bowel sounds, soft, nontender Extremities- no pretibial edema, no calf tenderness; peripheral pulses intact Neuro- alert, oriented x 2 no gross focal deficits Skin- warm & dry Laboratory Results: Last 24 Hours Test 09/09/17 20:59 09/10/17 07:35 09/10/17 11:32 09/10/17 16:56 Bedside Glucose 228 mg/dl 108 mg/dl 163 mg/dl 100 mg/dl Assessment & Plan SEVERE SEPSIS: from BACTEREMIA: resolved -PICC Line placed; -per ID: patient should be treated with ceftriaxone 2 gm daily. Recommended 7 days of IV antibiotics with transition to oral if remains afebrile following that; patient has completed this and remains afebrile with negative cultures and no symptoms. HYPOXEMIA/ACUTE ON CHRONIC RESPIRATORY FAILURE: Pulmonary consulted Palliative care consulted- patient and family have decided to transition to Palliative/Comfort Measures Had an extensive discussion with patient and family today, including goals of care Plan is to transition to SNF with hospice-- >bottle caser consulted Patient would still like to take his usual medications at this time Would use Bipap if patient has dyspnea and agreeable CONFUSION/METABOLIC ENCEPHALOPATHY: -possibly due to severe sepsis/acute renal failure, but also noted to have CO2 trending upward which could be contributing -above medical conditions treated -improving; as CO2 is trending down patient seems more oriented but not yet at baseline, and still confused and drowsy intermittently ACUTE ON CHRONIC DIASTOLIC CONGESTIVE HEART FAILURE EXACERBATION: -Lasix and Zaroxolyn were on hold initially in setting of severe sepsis/risk of intravascular volume depletion -TTE from July 2017, normal EF and valvular function. -Cardiology eval appreciated -lasix resumed PO, will continue this in comfort measures as well as metoprolol -will stop vital signs and labs per discussion with the family ARRHYTHMIA: PAC/PVC -Cardiology was consulted, appreciate input -continue metoprolol -d/c tele monitoring DM TYPE II: -continue Lantus + correction scale insulin -Pharmacy consulted for glycemic management, appreciate assistance - patient would still like to receive Insulin at this time OBSTRUCTIVE SLEEP APNEA: -continue BiPAP at night; patient refuses, will stop this now as comfort measures -known non-compliance at home, patient also struggles with compliance in the hospital HTN: -stable, occasionally on lower side of normal -Lasix resumed -continued on Lopressor with holding parameters -stop aggressive monitoring RENEA ON CKD STAGE III: Resolved -had RENEA due to severe sepsis/infection-intravascular volume depletion -renal function at approximate baseline -resumed Lasix BID PO and tolerating this without difficulty -no lab draws; lasix PRN comfort for breathing and edema management BPH: -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 Qureshi, and recommended patient to continue to keep Rodriguez catheter upon discharge SACRAL DECUBITUS ULCER: STAGE I/II -was present on admission -Wound care consulted, appreciate recs Dispo: plan is to transition patient to SNF with hospice- [facility] [employer] of [employer] on board Continued [facility] stay due to: other (discharge planning in place) [facility]charge planning[facility] ([facility]) Current Inpatient Medications: Current Inpatient Medications Medications (Trade) Dose Ordered Sig/Bj Route Start Time Stop Time Status Last Admin Dose Admin Heparin Sodium (Porcine) (Heparin Sq 5000 Unit/0.5ml) 5,000 unit Q8 SQ 08/27/17 22:00 09/26/17 21:59 09/09/17 21:22 5,000 UNIT Acetaminophen (Tylenol Tab) 650 mg Q4H PRN PO 08/27/17 20:30 09/26/17 20:29 09/10/17 17:02 650 MG Al Hydrox/Mg Hydrox/Simethicone (Maalox Max Susp) 15 ml Q4H PRN PO 08/27/17 20:30 09/26/17 20:29 Ondansetron HCl (Zofran Inj) 4 mg Q6H PRN IV 08/27/17 20:30 09/26/17 20:29 Nitroglycerin (Nitrostat Tab) 0.4 mg UD PRN SL 08/27/17 20:30 09/26/17 20:29 Polyethylene (Miralax Powder Packet) 17 gm DAILY PRN PO 08/27/17 20:30 09/26/17 20:29 Aspirin (Ecotrin Tab) 81 mg DAILY PO 08/28/17 09:00 09/27/17 08:59 09/10/17 08:02 81 MG Finasteride (Proscar Tab) 5 mg QAM PO 08/28/17 09:00 09/27/17 08:59 09/10/17 08:04 5 MG Folic Acid (Folvite Tab) 1 mg DAILY PO 08/28/17 09:00 09/27/17 08:59 09/10/17 08:04 1 MG Gabapentin (Neurontin Cap) 300 mg BID PO 08/27/17 21:00 09/26/17 20:59 Future Hold 09/02/17 09:11 300 MG Metoprolol Tartrate (Lopressor Tab) 12.5 mg BID PO 08/27/17 21:00 09/26/17 20:59 09/10/17 08:04 12.5 MG Nystatin/ Triamcinolone Acetonide (Mycogen II Crm) 1 appln BID EXT 08/27/17 21:00 09/26/17 20:59 09/10/17 11:22 1 APPLN Tamsulosin HCl (Flomax Cap) 0.4 mg HS PO 08/27/17 21:00 09/26/17 20:59 09/09/17 21:12 0.4 MG Venlafaxine HCl (effeXOR TAB) 75 mg BID PO 08/27/17 21:00 09/26/17 20:59 09/10/17 08:02 75 MG Insulin Aspart (novoLOG ASPART) SLIDING SCALE G... ACHS SC 08/27/17 21:00 09/26/17 20:59 09/10/17 13:36 7 UNITS Ipratropium [place] (Atrovent 0.02% 0.5MG/2.5ML Neb) 0.5 mg Q4 PRN INH 08/28/17 08:30 09/27/17 08:29 Levalbuterol (Xopenex 1.25MG/ 0.5ML Neb) 1.25 mg Q4 PRN INH 08/28/17 08:30 09/27/17 08:29 Miscellaneous Information (Consult Glycemic Management Pharmacy) 1 ea UD PRN N/A 08/28/17 14:27 09/27/17 14:26 Miconazole Nitrate (Desenex Powder) 1 appln BID EXT 08/29/17 21:00 09/28/17 20:59 09/10/17 11:21 1 APPLN Miconazole Nitrate (Desenex Powder) 1 appln PRN PRN EXT 08/29/17 15:30 09/28/17 15:29 09/04/17 21:15 1 APPLN Albuterol/ Ipratropium (Duoneb) 3 ml Q2H PRN INH 09/02/17 00:15 10/02/17 00:14 Heparin Sodium (Porcine) (Heparin 10 Unit/ ml 5 ml Flush) 5 ml PRN PRN FLUSH 09/02/17 17:45 10/02/17 17:44 09/09/17 11:38 5 ML Ipratropium [place] (Atrovent 0.02% 0.5MG/2.5ML Neb) 0.5 mg Q6R INH 09/03/17 03:00 10/03/17 02:59 09/10/17 14:18 0.5 MG Levalbuterol (Xopenex 1.25MG/ 0.5ML Neb) 1.25 mg Q6R INH 09/03/17 03:00 10/03/17 02:59 09/10/17 14:18 1.25 MG Haloperidol Lactate (Haldol Inj) 2 mg Q2H PRN IM 09/04/17 06:30 10/04/17 06:29 Haloperidol (Haldol Tab) 2 mg Q4H PRN PO 09/04/17 06:45 10/04/17 06:29 09/09/17 00:00 2 MG Furosemide (Lasix Tab) 40 mg BID17 PO 09/05/17 10:00 10/05/17 09:59 09/10/17 17:01 40 MG Pantoprazole Sodium (Protonix Tab) 40 mg QAM PO 09/06/17 09:00 10/06/17 08:59 09/10/17 08:03 40 MG Glucose (Glucose 40% Gel) 15-30 GRAMS 15 GRAMS... UD PRN PO 09/08/17 16:45 10/08/17 16:44 Glucose (Glucose Chew Tab) 4-8 Tablets 4 Tabl... UD PRN PO 09/08/17 16:45 10/08/17 16:44 Dextrose (Dextrose 50% 50ML Syringe) 25-50ML OF 50% DW IV FOR... UD PRN IV 09/08/17 16:45 10/08/17 16:44 Glucagon (Glucagon Inj) 1 mg UD PRN SQ 09/08/17 16:45 10/08/17 16:44 Menthol (Nice Shae) 1 shae PRN PRN SHAE 09/09/17 01:00 10/09/17 00:59 09/09/17 01:09 1 SAHE Phenazopyridine HCl (Pyridium Tab) 100 mg Q6 PRN PO 09/09/17 17:45 10/09/17 10:44 09/10/17 13:37 100 MG Morphine Sulfate (Roxanol Oral Soln) 2.5 mg Q2R PRN PO 09/09/17 17:45 09/23/17 17:44 09/10/17 14:16 2.5 MG Insulin Glargine (Lantus Solostar Pen) 17 units HS SQ 09/10/17 21:00 10/10/17 20:59
[2017-09-10] MEDS: MoRPHine SULFATE 4 MG/ML 1 ML CARP\\VIAL IV PRN (18:28)
[2017-09-10] MEDS ORDERED: INSULIN GLARGINE SOLOSTAR 100 UNITS/ML 3 ML PEN SQ SCH (21:00)
[2017-09-10] MEDS: TAMSULOSIN HCL 0.4 MG CAP PO SCH (21:47)
[2017-09-11] MEDS: LEVALBUTEROL 1.25MG/0.5ML NEB INH SCH ×3 (01:45→14:10)
[2017-09-11] MEDS: IPRATROPIUM BROMIDE NEB SOLN 0.02% 2.5 ML VIAL INH SCH ×3 (01:45→14:10)
[2017-09-11] MEDS: MoRPHine SULFATE 2.5 MG/0.125 ML UDP PO PRN ×2 (02:20→06:08)
[2017-09-11] MEDS: MoRPHine SULFATE 4 MG/ML 1 ML CARP\\VIAL IV PRN ×2 (03:48→08:05)
[2017-09-11] MEDS: HEPARIN SOD 5000 UNIT/0.5 ML CARP SQ SCH ×2 (06:09→13:15)
[2017-09-11] MEDS: INSULIN ASPART 100 UNITS/ML 3 ML PEN SC SCH ×2 (06:30→11:00)
[2017-09-11 06:59] VITALS: PULSE 92; O2SAT 95
[2017-09-11] MEDS: METOPROLOL TARTRATE 25 MG TAB PO SCH (07:55)
[2017-09-11] MEDS: ASPIRIN 81 MG ECTAB PO SCH (07:56)
[2017-09-11] MEDS: VENLAFAXINE HCL 37.5 MG TAB PO SCH (07:56)
[2017-09-11] MEDS: FUROSEMIDE 40 MG TAB PO SCH (07:56)
[2017-09-11] MEDS: NYSTATIN/TRIAMCINOLONE CR 15 GM TUBE EXT SCH (08:05)
[2017-09-11] MEDS: MICONAZOLE NITRATE POWDER 43 GM EXT SCH (08:05)
[2017-09-11 11:52] VITALS: BP 96/60; PULSE 92; TEMP 36.9; O2SAT 95
--- NOTE | 2017-09-11 13:20 | Progress Note ---
Medicine Progress Note Date & Time of Visit: September 11, 2017 at 13:07. Subjective seen resting in bed, sleeping, not in distress/no accessory muscle use patient is drowsy, opens eyes to tactile stimuli then goes back to sleep Objective Last 8 Hrs Date Time Temp Pulse Resp B/P (MAP) Pulse Ox O2 Delivery O2 Flow Rate FiO2 09/11/17 11:52 36.9 92 22 95 Nasal Cannula 09/11/17 08:00 Nasal Cannula 4.0 09/11/17 06:59 92 22 95 Nasal Cannula 2.0 Physical Exam: General- oriented x 2, not in distress, speaks in sentences with no effort Eyes- anicteric Neck- supple, no JVD Lungs- mild rhonchi at the bases Heart- regular rhythm; no murmur, normal rate Abdomen- normal bowel sounds, soft, nontender Extremities- no pretibial edema, no calf tenderness; peripheral pulses intact Neuro- alert, oriented x 2 no gross focal deficits Skin- warm & dry Laboratory Results: Last 24 Hours Test 09/10/17 16:56 09/10/17 20:56 09/11/17 08:19 09/11/17 11:31 Bedside Glucose 100 mg/dl 193 mg/dl 96 mg/dl 123 mg/dl Assessment & Plan SEVERE SEPSIS: from BACTEREMIA -08/27/17; 2 sets blood culture; gram-negative bacilli-->E. coli: Multidrug- resistant: Resistant to quinolone/ampicillin; Sensitive to Rocephin/Invanz/ imipenem -ID consulted, IV vancomycin/IV Zosyn discontinued; changed to IV Rocephin 2 g daily -Repeat blood culture on 08-29-17: Grew E. coli with same sensitivities -3rd set Blood cultures: no growth -repeat urine culture negative -PICC Line placed; -per ID: patient should be treated with ceftriaxone 2 gm daily. Recommended 7 days of IV antibiotics with transition to oral if remains afebrile following that; patient has completed this and remains afebrile with negative cultures and no symptoms. HYPOXEMIA/ACUTE ON CHRONIC RESPIRATORY FAILURE: -likely multifactorial from decompensated CHF with diastolic dysfunction/CO2 retention from OHS and GILLES with poor outpatient compliance -intermittently on Bipap during the day, encouraged patient to wear it overnight , his even brought his bipap and mask from home for patient's comfort, but patient continues to refuse it and per discussion with Palliative care, the bipap will no longer be encouraged to the patient as he does not wish to wear it and the family does not want the patient to be forced to use it -continue on Neb tx PRN comfort -Pulmonary consulted -diuresis as tolerated, continue this for comfort -Palliative care consulted, per discussion with the family and patient, the patient is comfort measures and non-comfort medications will be stopped, bipap will be stopped, and the focus will be on comfort and pain control only. - upon repeat discussion with patient and family on 09/10/17, patient would still like to continue his usual daily medications at this time , including Insulin, unless he declines patient will be discharged to [facility] with Hospice Services-- continue to re-evaluate CONFUSION/METABOLIC ENCEPHALOPATHY: -possibly due to severe sepsis/acute renal failure, but also noted to have CO2 trending upward which could be contributing -on treatment of infection/correction of hypoxemia/resolution of renal, Bipap as tolerated and qHS -remains high fall risk, ordered bed alarm, low boy bed -required 1:1 observation due to increased agitation/worsening of confusion/ owning and removal of bipap or oxygen -improving; as CO2 is trending down patient seems more oriented but not yet at baseline, and still confused and drowsy intermittently - 09/11/17: patient noted to be more drowsy likely from IV Morphine that was started yesterday fall precautions, monitor for delirium ACUTE ON CHRONIC DIASTOLIC CONGESTIVE HEART FAILURE EXACERBATION: -Lasix and Zaroxolyn were on hold initially in setting of severe sepsis/risk of intravascular volume depletion -TTE from July 2017, normal EF and valvular function. -Cardiology consulted -CXR demonstrated b/l pleural effusions and worsening congestive changes, thus increased lasix from PO to IV at 60mg BID; but held and changed back to PO due to poor intake -lasix resumed PO, will continue this in comfort measures as well as metoprolol - vital signs and labs discontinued per discussion with the family ARRHYTHMIA: PAC/PVC -Cardiology was consulted -noted to have frequent PAC/PVC possible secondary to sepsis/acute renal failure -No cardiac intervention indicated DM TYPE II: -continue Lantus + correction scale insulin -Pharmacy consulted for glycemic management patient would still like to continue Insulin per discussion with him 09/10/17 OBSTRUCTIVE SLEEP APNEA: - usually on BiPAP at night; patient refuses, will stop this now as comfort measures -known non-compliance at home, patient also struggles with compliance in the hospital HTN: -stable, occasionally on lower side of normal -Lasix resumed -continued on Lopressor RENEA ON CKD STAGE III: resolved -had RENEA due to severe sepsis/infection-intravascular volume depletion -renal function at approximate baseline -resumed Lasix BID PO and tolerating this without difficulty -no lab draws; lasix PRN comfort for breathing and edema management BPH: -hx of chronic urinary retention due to BPH -continued on Proscar and Flomax -Follows with Urology, consulted, appreciate recs -Osorio catheter placed by Dr. Qureshi, and recommended patient to continue to keep Osorio catheter upon discharge SACRAL DECUBITUS ULCER: STAGE I/II -was present on admission -Wound care consulted Disposition transition to [facility] with Hospice Care Services Continued [facility] stay due to: other (discharge planning in place) Discharge planning: senior living facility (for comfort) Current Inpatient Medications: Current Inpatient Medications Medications (Trade) Dose Ordered Sig/Bj Route Start Time Stop Time Status Last Admin Dose Admin Heparin Sodium (Porcine) (Heparin Sq 5000 Unit/0.5ml) 5,000 unit Q8 SQ 08/27/17 22:00 09/26/17 21:59 09/11/17 06:09 5,000 UNIT Acetaminophen (Tylenol Tab) 650 mg Q4H PRN PO 08/27/17 20:30 09/26/17 20:29 09/10/17 17:02 650 MG Al Hydrox/Mg Hydrox/Simethicone (Maalox Max Susp) 15 ml Q4H PRN PO 08/27/17 20:30 09/26/17 20:29 Ondansetron HCl (Zofran Inj) 4 mg Q6H PRN IV 08/27/17 20:30 09/26/17 20:29 09/11/17 08:09 4 MG Nitroglycerin (Nitrostat Tab) 0.4 mg UD PRN SL 08/27/17 20:30 09/26/17 20:29 Polyethylene (Miralax Powder Packet) 17 gm DAILY PRN PO 08/27/17 20:30 09/26/17 20:29 Aspirin (Ecotrin Tab) 81 mg DAILY PO 08/28/17 09:00 09/27/17 08:59 09/10/17 08:02 81 MG Gabapentin (Neurontin Cap) 300 mg BID PO 08/27/17 21:00 09/26/17 20:59 Future Hold 09/02/17 09:11 300 MG Metoprolol Tartrate (Lopressor Tab) 12.5 mg BID PO 08/27/17 21:00 09/26/17 20:59 09/10/17 08:04 12.5 MG Nystatin/ Triamcinolone Acetonide (Mycogen II Crm) 1 appln BID EXT 08/27/17 21:00 09/26/17 20:59 09/11/17 08:05 1 APPLN Tamsulosin HCl (Flomax Cap) 0.4 mg HS PO 08/27/17 21:00 09/26/17 20:59 09/10/17 21:47 0.4 MG Venlafaxine HCl (effeXOR TAB) 75 mg BID PO 08/27/17 21:00 09/26/17 20:59 09/10/17 19:44 75 MG Insulin Aspart (novoLOG ASPART) SLIDING SCALE G... ACHS SC 08/27/17 21:00 09/26/17 20:59 09/10/17 21:55 2 UNITS Ipratropium [place] (Atrovent 0.02% 0.5MG/2.5ML Neb) 0.5 mg Q4 PRN INH 08/28/17 08:30 09/27/17 08:29 Levalbuterol (Xopenex 1.25MG/ 0.5ML Neb) 1.25 mg Q4 PRN INH 08/28/17 08:30 09/27/17 08:29 Miscellaneous Information (Consult Glycemic Management Pharmacy) 1 ea UD PRN N/A 08/28/17 14:27 09/27/17 14:26 Miconazole Nitrate (Desenex Powder) 1 appln BID EXT 08/29/17 21:00 09/28/17 20:59 09/11/17 08:05 1 APPLN Miconazole Nitrate (Desenex Powder) 1 appln PRN PRN EXT 08/29/17 15:30 09/28/17 15:29 09/04/17 21:15 1 APPLN Albuterol/ Ipratropium (Duoneb) 3 ml Q2H PRN INH 09/02/17 00:15 10/02/17 00:14 Heparin Sodium (Porcine) (Heparin 10 Unit/ ml 5 ml Flush) 5 ml PRN PRN FLUSH 09/02/17 17:45 10/02/17 17:44 09/11/17 10:30 5 ML Ipratropium [place] (Atrovent 0.02% 0.5MG/2.5ML Neb) 0.5 mg Q6R INH 09/03/17 03:00 10/03/17 02:59 09/11/17 06:59 0.5 MG Levalbuterol (Xopenex 1.25MG/ 0.5ML Neb) 1.25 mg Q6R INH 09/03/17 03:00 10/03/17 02:59 09/11/17 06:59 1.25 MG Haloperidol Lactate (Haldol Inj) 2 mg Q2H PRN IM 09/04/17 06:30 10/04/17 06:29 Haloperidol (Haldol Tab) 2 mg Q4H PRN PO 09/04/17 06:45 10/04/17 06:29 09/09/17 00:00 2 MG Furosemide (Lasix Tab) 40 mg BID17 PO 09/05/17 10:00 10/05/17 09:59 09/10/17 17:01 40 MG Glucose (Glucose 40% Gel) 15-30 GRAMS 15 GRAMS... UD PRN PO 09/08/17 16:45 10/08/17 16:44 Glucose (Glucose Chew Tab) 4-8 Tablets 4 Tabl... UD PRN PO 09/08/17 16:45 10/08/17 16:44 Dextrose (Dextrose 50% 50ML Syringe) 25-50ML OF 50% DW IV FOR... UD PRN IV 09/08/17 16:45 10/08/17 16:44 Glucagon (Glucagon Inj) 1 mg UD PRN SQ 09/08/17 16:45 10/08/17 16:44 Menthol (Nice Shae) 1 shae PRN PRN SHAE 09/09/17 01:00 10/09/17 00:59 09/09/17 01:09 1 SHAE Phenazopyridine HCl (Pyridium Tab) 100 mg Q6 PRN PO 09/09/17 17:45 10/09/17 10:44 09/10/17 21:49 100 MG Morphine Sulfate (Roxanol Oral Soln) 2.5 mg Q2R PRN PO 09/09/17 17:45 09/23/17 17:44 09/11/17 06:08 2.5 MG Insulin Glargine (Lantus Solostar Pen) 17 units HS SQ 09/10/17 21:00 10/10/17 20:59 09/10/17 21:56 17 UNITS Morphine Sulfate (MoRPHine SULFATE INJ) 3 mg Q4H PRN IV 09/10/17 18:15 09/24/17 18:14 09/11/17 08:05 3 MG
[2017-09-11] MEDS ORDERED: LORA-741 PO (13:35)
[2017-09-11] MEDS ORDERED: XPNINS1255 INH ×2 (13:35)
[2017-09-11] MEDS ORDERED: LSX40 PO (13:35)
[2017-09-11] MEDS ORDERED: ATRINS INH ×2 (13:35)
[2017-09-11] MEDS ORDERED: RXNS10 PO (13:35)
[2017-09-11] MEDS ORDERED: NVLGIPEN SC (13:35)
--- NOTE | 2017-09-11 13:48 | Discharge Instructions ---
Discharge Instructions Date of Service September 11, 2017. Admission Reason for Admission: Cellulitis, Change In Mental Status Discharge Discharge Diagnosis / Problem: SEPSIS SECONDARY TO E COLI BACTEREMIA, ACUTE ON CHRONIC RESPIRATORY FAILURE Discharge Goals Goal(s): Diagnostic testing, Therapeutic intervention Activity Recommendations Activity Level: Assistance Required . Additional Information Patient informed of condition: Yes Advance Directives: No (UNKNOWN) DNR: Yes Level of Care: Skilled (WITH HOSPICE SERVICES) Communicable Disease: No Prognosis: Deteriorating Oxygen at (LPM): 2-4 LITERS VIA [place] Osorio Catheter: Yes Instructions / Follow-Up Instructions / Follow-Up PATIENT TO BE UNDER HOSPICE SERVICES UPON ADMISSION TO [facility]. PLEASE REFER TO ACCOMPANYING HOSPITAL DISCHARGE SUMMARY. Current Hospital Diet Patient's current hospital diet: Low Sodium Diet (2gm Na), Diabetes Type 2 Diet Discharge Diet Recommended Diet: Low Sodium Diet (2gm Na), Diabetes Type 2 Diet Fluid Restriction: 1800 ml (7 cups) Diet Texture: Mechanical Soft (ground) Procedures Procedures Performed: CT HEAD, CHEST XRAY Pending Studies Studies pending at discharge: no Physician Orders On Transfer Special Precautions: PATIENT TO BE UNDER HOSPICE SERVICES UPON ADMISSION TO [facility]. PLEASE REFER TO ACCOMPANYING HOSPITAL DISCHARGE SUMMARY. POLST Discussion: with POLST completion Laboratory Results Hemoglobin A1c Test 08/29/17 07:42 Range/Units Estimated Average Glucose 214 mg/dl Hemoglobin A1c 9.1 H 4.5-5.6 % Medical Emergencies . Who to Call and When: Medical Emergencies: If at any time you feel your situation is an emergency, please call 911 immediately. . Non-Emergent Contact Non-Emergency issues call your: Primary Care Provider . Past History Medical & Surgical History: (1) Asthma exacerbation (2) Acute respiratory failure (3) Acute on chronic diastolic heart failure (4) Pseudomonas urinary tract infection (5) Hypokalemia (6) Shortness of breath (7) Cellulitis (8) Change in mental status (9) Anxiety (10) Benign prostatic hyperplasia (11) Depression (12) Diabetes mellitus type 2 (13) Diabetic neuropathy (14) Diastolic heart failure (15) Dyslipidemia (16) Essential hypertension (17) Gastroesophageal reflux disease (18) Morbid obesity (19) Peripheral venous insufficiency (20) Sleep apnea (21) Nocturnal hypoxemia (22) Legal blindness (23) Asthma, cough variant (24) Obesity hypoventilation syndrome . "Provider Documentation" section prepared by Fer Beltran. . Core Measure Problem Core Measures: None
--- NOTE | 2017-09-11 13:55 | Discharge Summary ---
Discharge Summary Date of Service September 11, 2017. Discharge Summary Admission Date: Aug 27, 2017 at 20:28 Discharge Date: September 11, 2017 Discharge Disposition: group home facility (WITH HOSPICE SERVICES) Principal Diagnosis: SEVERE SEPSIS: from BACTEREMIA Secondary Diagnoses/Problems: PLEASE REFER TO HOSPITAL COURSE BELOW. Procedures: SINGLE VIEW CHEST CLINICAL HISTORY: Hypoxia. FINDINGS: An AP, portable, upright chest radiograph is compared to study dated 09/03/2017. The examination is degraded by portable technique, large body habitus, and patient rotation. A right PICC line is unchanged in position. The tip of the catheter projects over the right atrium. The heart is enlarged and there is atherosclerotic calcification of the thoracic aorta. There is pulmonary vascular congestion. Bilateral airspace opacities likely represent interstitial edema, and are most confluent in the right midlung. Trace pleural effusions are suspected. There is bibasilar atelectasis. No pneumothorax is seen. The skeletal structures are osteopenic. The bony thorax is grossly intact. Advanced arthritic change is seen in the shoulders. IMPRESSION: 1. Cardiomegaly with evidence of congestive failure. This has modestly improved from yesterday. 2. Bilateral airspace opacities likely represent interstitial edema. Correlate clinically for evidence of superimposed pneumonia. 3. Suspect small pleural effusions. Electronically signed by: Porfirio Santillan M.D. 09/04/2017 7:[address] HEAD WITHOUT CONTRAST (CT) CLINICAL HISTORY: confusion LETHARGY COMPARISON STUDY: 02/16/2017 TECHNIQUE: Axial CT of the brain is performed from the vertex to the skull base. IV contrast was not administered for this examination. A dose lowering technique was utilized adhering to the principles of ALARA. CT DOSE: 844.62 mGy.cm FINDINGS: No intra or extra-axial mass lesions are visualized. There is no CT evidence of acute cortical infarction. There is no evidence of midline shift. There is no acute hemorrhage. No calvarial fractures are visualized. There are patchy white matter hypodensities likely on a small vessel basis. There is no evidence of pathologic ventricular dilatation. There is no evidence of acute sinusitis IMPRESSION: No acute intracranial findings Consultations: CARDIOLOGY, PULMONARY, INFECTIOUS DISEASE Medication Reconciliation New Medications: Lorazepam (Ativan) 0.5 Mg Tab 0.5 MG PO Q4H PRN for Anxiety/Agitation, #10 TAB Furosemide (Furosemide) 40 Mg Tab 40 MG PO BID17 for 30 Days, TAB Insulin Aspart (Novolog Flexpen) 100 Units/Ml Inj 1 UNITS SC ACHS for 30 Days Ipratropium [place] (Ipratropium [place]) 0.5 Mg/2.5 Ml Nebu 0.5 MG INH Q6R for 30 Days Ipratropium [place] (Ipratropium [place]) 0.5 Mg/2.5 Ml Nebu 0.5 MG INH Q4 PRN for Shortness of Breath/WHEEZING for 30 Days Levalbuterol (Levalbuterol) 1.25 Mg/0.5 Ml Nebu 1.25 MG INH Q6R for 30 Days Levalbuterol (Levalbuterol) 1.25 Mg/0.5 Ml Nebu 1.25 MG INH Q4 PRN for Shortness of Breath/WHEEZING for 30 Days Morphine Sulfate (Morphine Sulfate) 10 Mg/0.5 Ml Soln 5 MG PO Q2R PRN for pain/shortness of breath for 7 Days, #10 ML 0 Refills Continued Medications: Acetaminophen (Tylenol) 325 Mg Tab 325 MG PO Q6 PRN for Pain, TAB Gabapentin (Gabapentin) 300 Mg Cap 300 MG PO BID for 15 Days, #30 CAP 0 Refills Metoprolol Tartrate (Lopressor) (Lopressor) 25 Mg Tab 12.5 MG PO BID, TAB Tamsulosin HCl (Tamsulosin HCl) 0.4 Mg Cap 1 CAP PO HS Venlafaxine Hcl (Effexor) 75 Mg Tab 75 MG PO BID Discontinued Medications: Ascorbic Acid (Vitamin C) 500 Mg Tab 1 TAB PO DAILY Aspirin (Aspirin Ec) 81 Mg Tab 81 MG PO DAILY Calcium Citrate-Vitamin D (Calcium Citrate + D3 Max 315-250 mg-Unit) 1 Tab Tab 1 TAB PO DAILY Finasteride (Proscar) 5 Mg Tab 5 MG PO QAM, 0 Refills Folic Acid (Folvite) 1 Mg Tab 1 MG PO DAILY, TAB Furosemide (Lasix) 80 Mg Tab 80 MG PO BID, TAB Insulin Aspart (Novolog Flexpen) 100 Units/Ml Inj 10 UNITS SQ TIDM PLUS SLIDING SCALE Insulin Glargine (Lantus Solostar) 100 Unit/Ml Inj 25 UNITS SQ QPM, PEN Magnesium Oxide (Mag-Ox) 400 Mg Tab 400 MG PO DAILY for 7 Days, #7 TAB Metolazone (Zaroxolyn) 5 Mg Tab 5 MG PO 2XWK 1/2 hour prior to AM dose of Furosemide. PATIENT TAKES TUES AND THURS Multivitamin (Multivitamin) Tab 1 TAB PO DAILY, TAB Nystatin-Triamcinolone (Nystatin/Triamcinolone) 1 Cre Cre 1 APPLN TOP BID, #15 GM 1 Refill Apply to groin and perineal area twice daily. Omeprazole (Prilosec) 20 Mg Capcr 20 MG PO QAM Potassium Ext Rel (Klor-Con) 20 Meq Tabcr 20 MEQ PO BID Simvastatin (Zocor) 80 Mg Tab 40 MG PO QPM, TAB Admission Information HPI (per Admitting provider): DATE OF ADMISSION: 08/27/2017 CHIEF COMPLAINT: Confusion. HISTORY OF PRESENT ILLNESS: This is a 77-year-old male with past medical history significant for morbid obesity, obstructive sleep apnea, noncompliant with BiPAP, diastolic CHF, abdominal pannus, diabetes, BPH, GERD, hyperlipidemia, depression, COPD who has multiple admissions in the recent past for CO2 retention with noncompliance with BiPAP and CHF and UTI with pseudomonas and enterococcus. Was recently discharged from hospital on 2017, to [facility] and he was discharged back home and seen by his family doctor on 08/23/2017. Still has some ambulatory dysfunction. He was walking only 40 feet and he was on and off with Osorio catheter and it was planned for sending him to see Dr. Hameed, urology.Patient also told the family doctor that he is not happy at home and he was agreeable for assisted living. The family doctor is working on it but today, patient was more confused at home and EMS was called and patient was brought in. Patient is somewhat drowsy, but arousable, answers appropriate questions and obeys simple commands. Complaints of pain all over, mostly in his back, at his decubitus ulcer. Denies any fevers but feel chills. Denies any chest pain or belly pain but says he has pain all over the body and but says his breathing is okay. Denies any cough. Denies any nausea. Denies any vomiting. Says his appetite is very good.Normal bowel and bladder movements. Says no blood in the stools. Currently, somewhat restless. Patient is somewhat irritable but he is hemodynamically stable. His ABG was done in the ER showed a CO2 of 57 on the venous gases. Patient agrees that he is noncompliant with BiPAP because he feels he is choked up, but agrees to put on BiPAP currently. ALLERGIES: No known drug allergies. PAST MEDICAL HISTORY: As mentioned above. PAST SURGICAL HISTORY: Excision of excessive skin of the abdomen related to abdominoplasty, tonsillectomy and cataract surgeries. Physical Exam (per Admitting): VITAL SIGNS: Temperature 37.3, pulse 87, respiratory rate 24, blood pressure 122/92, oxygen 92% on BiPAP. HEENT: No pallor, no icterus. Pupils equal, round, reactive to light. NECK: No JVD, no neck masses, no carotid bruits. CARDIOVASCULAR: S1, S2 heard, regular rate and rhythm, no murmur, no gallop. RESPIRATORY SYSTEM: Normal. Mild tachypnea, somewhat diminished breath sounds. No wheezing, mild bibasilar crackles. ABDOMEN: Soft, nontender. No distention. Mild skin ulcers seen in the panniculus. CENTRAL NERVOUS SYSTEM: Alert and oriented x2, not able to tell time, drowsy but arousable, somewhat irritable. Obeys simple commands. Moves his extremities. EXTREMITIES: Bilateral lower extremity edema present. Right lower extremity erythematous up to the wheeler, from ankle to wheeler. Left lower extremity mildly erythematous around the ankle region. Hospital Course SEVERE SEPSIS: from BACTEREMIA -08/27/17; 2 sets blood culture; gram-negative bacilli-->E. coli: Multidrug- resistant: Resistant to quinolone/ampicillin; Sensitive to Rocephin/Invanz/ imipenem -ID consulted, IV vancomycin/IV Zosyn discontinued; changed to IV Rocephin 2 g daily -Repeat blood culture on 08-29-17: Grew E. coli with same sensitivities -3rd set Blood cultures: no growth -repeat urine culture negative -PICC Line placed; -per ID: patient should be treated with ceftriaxone 2 gm daily. Recommended 7 days of IV antibiotics with transition to oral if remains afebrile following that; patient has completed this and remains afebrile with negative cultures and no symptoms. HYPOXEMIA/ACUTE ON CHRONIC RESPIRATORY FAILURE: -likely multifactorial from decompensated CHF with diastolic dysfunction/CO2 retention from [facility] and G[facility] with poor outpatient compliance -intermittently on Bipap during the day, encouraged patient to wear it overnight , his even brought his bipap and mask from home for patient's comfort, but patient continues to refuse it and per discussion with Palliative care, the bipap will no longer be encouraged to the patient as he does not wish to wear it and the family does not want the patient to be forced to use it -continue on Neb tx PRN comfort -Pulmonary consulted -diuresis as tolerated, continue this for comfort -Palliative care consulted, per discussion with the family and patient, the patient is comfort measures and non-comfort medications will be stopped, bipap will be stopped, and the focus will be on comfort and pain control only. - upon repeat discussion with patient and family on 09/10/17, patient would still like to continue his usual daily medications at this time , including Insulin, unless he declines patient will be discharged to [facility] with Hospice Services-- continue to re-evaluate CONFUSION/METABOLIC ENCEPHALOPATHY: -possibly due to severe sepsis/acute renal failure, but also noted to have CO2 trending upward which could be contributing -on treatment of infection/correction of hypoxemia/resolution of renal, Bipap as tolerated and qHS -remains high fall risk, ordered bed alarm, low boy bed -required 1:1 observation due to increased agitation/worsening of confusion/ ing and removal of bipap or oxygen -improving; as CO2 is trending down patient seems more oriented but not yet at baseline, and still confused and drowsy intermittently - 09/11/17: patient noted to be more drowsy likely from IV Morphine that was started yesterday fall precautions, monitor for delirium ACUTE ON CHRONIC DIASTOLIC CONGESTIVE HEART FAILURE EXACERBATION: -Lasix and Zaroxolyn were on hold initially in setting of severe sepsis/risk of intravascular volume depletion -TTE from July 2017, normal EF and valvular function. -Cardiology consulted -CXR demonstrated b/l pleural effusions and worsening congestive changes, thus increased lasix from PO to IV at 60mg BID; but held and changed back to PO due to poor intake -lasix resumed PO, will continue this in comfort measures as well as metoprolol - vital signs and labs discontinued per discussion with the family ARRHYTHMIA: PAC/PVC -Cardiology was consulted -noted to have frequent PAC/PVC possible secondary to sepsis/acute renal failure -No cardiac intervention indicated DM TYPE II: -continue Lantus + correction scale insulin -Pharmacy consulted for glycemic management patient would still like to continue Insulin per discussion with him 09/10/17 OBSTRUCTIVE SLEEP APNEA: - usually on BiPAP at night; patient refuses, will stop this now as comfort measures -known non-compliance at home, patient also struggles with compliance in the hospital HTN: -stable, occasionally on lower side of normal -Lasix resumed -continued on Lopressor RENEA ON CKD STAGE III: resolved -had RENEA due to severe sepsis/infection-intravascular volume depletion -renal function at approximate baseline -resumed Lasix BID PO and tolerating this without difficulty -no lab draws; lasix PRN comfort for breathing and edema management BPH: -hx of chronic urinary retention due to BPH -continued on Proscar and Flomax -Follows with Urology, consulted, appreciate recs -Osorio catheter placed by Dr. Qureshi, and recommended patient to continue to keep Osorio catheter upon discharge SACRAL DECUBITUS ULCER: STAGE I/II -was present on admission -Wound care consulted Disposition transition to [facility] with Hospice Care Services plan of care discussed again with patient's son Harinder and Cj- they are agreeable and comfortable with the plan of care tried to called patient's Cherie but she is not available, left a voicemail for callback Total time spent on discharge = 60 minutes This includes examination of the patient, discharge planning, medication reconciliation, and communication with other providers. Discharge Instructions Discharge Instructions Date of Service September 11, 2017. Admission Reason for Admission: Cellulitis, Change In Mental Status Discharge Discharge Diagnosis / Problem: SEPSIS SECONDARY TO E COLI BACTEREMIA, ACUTE ON CHRONIC RESPIRATORY FAILURE Discharge Goals Goal(s): Diagnostic testing, Therapeutic intervention Activity Recommendations Activity Level: Assistance Required . Additional Information Patient informed of condition: Yes Advance Directives: No (UNKNOWN) DNR: Yes Level of Care: Skilled (WITH HOSPICE SERVICES) Communicable Disease: No Prognosis: Deteriorating Oxygen at (LPM): 2-4 LITERS VIA [place] Osorio Catheter: Yes Instructions / Follow-Up Instructions / Follow-Up PATIENT TO BE UNDER HOSPICE SERVICES UPON ADMISSION TO [facility]. PLEASE REFER TO ACCOMPANYING HOSPITAL DISCHARGE SUMMARY. Current Hospital Diet Patient's current hospital diet: Low Sodium Diet (2gm Na), Diabetes Type 2 Diet Discharge Diet Recommended Diet: Low Sodium Diet (2gm Na), Diabetes Type 2 Diet Fluid Restriction: 1800 ml (7 cups) Diet Texture: Mechanical Soft (ground) Procedures Procedures Performed: CT HEAD, CHEST XRAY Pending Studies Studies pending at discharge: no Physician Orders On Transfer Special Precautions: PATIENT TO BE UNDER HOSPICE SERVICES UPON ADMISSION TO [facility]. PLEASE REFER TO ACCOMPANYING HOSPITAL DISCHARGE SUMMARY. POLST Discussion: with POLST completion Laboratory Results Hemoglobin A1c Test 08/29/17 07:42 Range/Units Estimated Average Glucose 214 mg/dl Hemoglobin A1c 9.1 H 4.5-5.6 % Medical Emergencies . Who to Call and When: Medical Emergencies: If at any time you feel your situation is an emergency, please call 911 immediately. . Non-Emergent Contact Non-Emergency issues call your: Primary Care Provider . Past History Medical & Surgical History: (1) Asthma exacerbation (2) Acute respiratory failure (3) Acute on chronic diastolic heart failure (4) Pseudomonas urinary tract infection (5) Hypokalemia (6) Shortness of breath (7) Cellulitis (8) Change in mental status (9) Anxiety (10) Benign prostatic hyperplasia (11) Depression (12) Diabetes mellitus type 2 (13) Diabetic neuropathy (14) Diastolic heart failure (15) Dyslipidemia (16) Essential hypertension (17) Gastroesophageal reflux disease (18) Morbid obesity (19) Peripheral venous insufficiency (20) Sleep apnea (21) Nocturnal hypoxemia (22) Legal blindness (23) Asthma, cough variant (24) Obesity hypoventilation syndrome . "Provider Documentation" section prepared by Fer Beltran. . Core Measure Problem Core Measures: None
[2017-09-11] MEDS ORDERED: INSULIN GLARGINE SOLOSTAR 100 UNITS/ML 3 ML PEN SQ SCH (22:00)
== END 2017-09-11 14:24 | disposition hospice, inpatient (51) | DRG 871 ==
LOC: EDBD 17:07 → C.EDC 17:10 → C.MED 20:28 → ENRESERV 20:43 → C.2E 08-28 16:36 → ENRESERV 09-04 16:51 → C.MS4W 09-04 17:49 → ENRESERV 09-04 19:03 → C.MED 09-04 19:48 → ENRESERV 09-10 17:00 → C.MS4W 09-10 19:06
PROVIDERS: ADMIT Hospitalist; ATTEND Internal Medicine
PROC: 0T9B70Z Drainage of Bladder with Drainage Device, Via Natural or Artificial Opening (ICD-10-PCS; 2017-08-29)
PROC: 02HV33Z Insertion of Infusion Device into Superior Vena Cava, Percutaneous Approach (ICD-10-PCS; principal; 2017-09-02)
DX: A41.51 Sepsis due to Escherichia coli [E. coli] (principal); G93.41 Metabolic encephalopathy; I50.33 Acute on chronic diastolic (congestive) heart failure; Z51.5 Encounter for palliative care; N17.9 Acute kidney failure, unspecified; E87.1 Hypo-osmolality and hyponatremia; L03.115 Cellulitis of right lower limb; J96.21 Acute and chronic respiratory failure with hypoxia; I13.0 Hypertensive heart and chronic kidney disease with heart failure and stage 1 through stage 4 chronic kidney disease, or unspecified chronic kidney disease; E66.2 Morbid (severe) obesity with alveolar hypoventilation; N39.0 Urinary tract infection, site not specified; R65.20 Severe sepsis without septic shock; N40.1 Benign prostatic hyperplasia with lower urinary tract symptoms; J44.9 Chronic obstructive pulmonary disease, unspecified; F32.9 Major depressive disorder, single episode, unspecified; E11.21 Type 2 diabetes mellitus with diabetic nephropathy; E78.5 Hyperlipidemia, unspecified; L89.152 Pressure ulcer of sacral region, stage 2; I48.91 Unspecified atrial fibrillation; Z79.4 Long term (current) use of insulin; I27.20 Pulmonary hypertension, unspecified; E66.01 Morbid (severe) obesity due to excess calories; K21.9 Gastro-esophageal reflux disease without esophagitis; I49.3 Ventricular premature depolarization; H54.8 Legal blindness, as defined in USA; Z83.3 Family history of diabetes mellitus; Z87.891 Personal history of nicotine dependence; N35.9 Urethral stricture, unspecified; E87.6 Hypokalemia; Z91.19 Patient's noncompliance with other medical treatment and regimen; R33.9 Retention of urine, unspecified; Z82.49 Family history of ischemic heart disease and other diseases of the circulatory system; D64.9 Anemia, unspecified; E65 Localized adiposity; N18.3 Chronic kidney disease, stage 3 (moderate); Z68.33 Body mass index [BMI] 33.0-33.9, adult; Z88.5 Allergy status to narcotic agent